=== PATIENT | male | born 1960 | race Caucasian/White ===

== ENCOUNTER 2016-10-17 09:20 | Emergency (ER) | payer OTHER ==
[~2016-10-17] VITALS: Ht 160 cm; Wt 73.0 kg
[~2016-10-17 09:20] MED LIST: DAPA10TA PO; FENO145T19 PO; FURO40TA4 PO; LANT3I SC; LOSA25TA47 PO; NITR-58 PO; NOVO3I SC; PANT40TA3 PO; SPIR100T31 PO; ZOLP10TA5 PO
[2016-10-17 09:28] VITALS: Ht 160 cm; Wt 73.0 kg
[2016-10-17] MEDS ORDERED: traMADol 50 MG TAB PO ONE (10:00)
[2016-10-17] MEDS: LIDOCAINE 1% (MPF) 5 ML VIAL ONE ×2 (10:39→11:36)
[2016-10-17 12:09] VITALS: BP 113/69; PULSE 69; RESP 19; TEMP 97.7
--- NOTE | 2016-10-17 13:43 | ERD ---
ER Documentation Chief Complaint Date/Time DATE: 10/17/16 TIME: 13:41 Chief Complaint here for paracenthesis HPI Patient is a 55-year-old male with ascites who presents with abdominal distention. He has abdominal pain and subjective fever but did not take his temperature. It started 2 days ago. Upon review of old medical records he has multiple visits to the ER with similar type complaints. I have seen him before and he appears to be at his baseline. The patient has had no treatment as of yet. ROS All systems reviewed and are negative except as per history of present illness. Medications Home Meds Active Scripts Nitrofurantoin Monohyd Macrocr* (Macrobid*) 100 Mg Capsr, 100 MG PO BID for 7 Days, CAP Prov:ALESIA CLAROS MD 10/07/16 Insulin Aspart* (Novolog Insulin Pen*) 100 Unit/Ml Soln, 10 UNIT SC WITH MEALS BEDTIME for 28 Days Prov:JERZY BENSON MD 08/27/16 Reported Medications Dapagliflozin Propanediol (Farxiga) 10 Mg Tablet, 10 MG PO DAILY, #30 TAB 08/23/16 Insulin Glargine* (Lantus*) 100 Unit/Ml Soln, 35 UNIT SC QHS, #1 VIAL 08/23/16 Losartan Potassium* (Cozaar*) 25 Mg Tablet, 25 MG PO DAILY, #30 TAB 08/23/16 Pantoprazole* (Protonix*) 40 Mg Tablet.dr, 40 MG PO DAILY, TAB 08/23/16 Furosemide* (Furosemide*) 40 Mg Tablet, 40 MG PO DAILY, TAB 08/23/16 Fenofibrate Nanocrystallized* (Fenofibrate*) 145 Mg Tablet, 145 MG PO DAILY, TAB 08/23/16 Zolpidem Tartrate* (Zolpidem Tartrate*) 10 Mg Tablet, 10 MG PO QHS Y for INSOMNIA, #30 TAB 08/23/16 Spironolactone* (Spironolactone*) 100 Mg Tablet, 100 MG PO QAM, TAB 08/23/16 Allergies Allergies: Coded Allergies: No Known Drug Allergy (Verified Allergy, Unknown, 10/17/16) PMhx/Soc History of Surgery: Yes (TONSIL SX, COLON SX) Anesthesia Reaction: No Hx Neurological Disorder: No Hx Respiratory Disorders: No Hx Cardiac Disorders: Yes (HYPOTENSION) Hx Psychiatric Problems: No Hx Miscellaneous Medical Probl: Yes (DM, LIVER FAILURE, RENAL DYSFXN.) Hx Alcohol Use: Yes (FORMER DRINKER; LAST DRINK 1 YEAR AGO) Hx Substance Use: No Hx Tobacco Use: Yes (5-6 cig/ day) Smoking Status: Current every day smoker FmHx Family History: No diabetes Physical Exam Vitals Vital Signs Date Time Temp Pulse Resp B/P Pulse Ox O2 Delivery O2 Flow Rate FiO2 10/17/16 12:09 97.7 69 19 113/69 99 Room Air 10/17/16 11:41 97.9 79 18 118/75 99 Room Air 10/17/16 09:28 98.0 106 24 91/60 99 Physical Exam Const: Mild distress Head: Atraumatic Eyes: Normal Conjunctiva ENT: Normal External Ears, Nose and Mouth. Neck: Full range of motion..~ No meningismus. Resp: Clear to auscultation bilaterally Cardio: Regular rate and rhythm, no murmurs Abd: Distended abdomen with positive fluid wave Skin: No petechiae or rashes Back: No midline or flank tenderness Ext: No cyanosis, or edema Neur: Awake and alert Psych: Normal Mood and Affect Results 24 hrs Current Medications Medications (Trade) Dose Ordered Sig/Lisa Route PRN Reason Start Time Stop Time Status Last Admin Dose Admin Tramadol HCl (Ultram) 50 mg ONCE ONCE PO 10/17/16 10:00 10/17/16 10:01 DC 10/17/16 10:05 Lidocaine (Xylocaine 1% (Mpf)) 5 ml STK-MED ONCE .ROUTE 10/17/16 10:39 10/17/16 10:40 DC Procedures/MDM Ultrasound-guided paracentesis performed by radiology. Patient is a 55-year-old male with ascites who presents for a paracentesis. He had laboratories done 6 days ago and does not require repeat. I doubt spontaneous bacterial peritonitis. He is afebrile. He was given tramadol for pain and had an ultrasound-guided paracentesis performed. He feels much better and is now smiling and happy. The patient will be discharged home and can follow-up with his primary doctor within 24-48 hours. Departure Diagnosis: Primary Impression: Ascites Ascites type: other type Qualified Code: R18.8 - Other ascites Additional Impression: Abdominal pain Abdominal location: generalized Qualified Code: R10.84 - Generalized abdominal pain Condition: Fair Patient Instructions: Ascites Additional Instructions: Call your primary care doctor TOMORROW for an appointment during the next 1-2 days.See the doctor sooner or return here if your condition worsens before your appointment time. ALESIA CLAROS MD Oct 17, 2016 13:42
--- NOTE | 2016-10-17 13:45 | RADRPT ---
PROCEDURE: Ultrasound guided paracentesis. CLINICAL INDICATION: Ascites and shortness of breath. COMPARISON: 10/11/2016. TECHNIQUE: The risks, benefits, and alternatives were explained to the patient, including but not limited to bl eeding, infection, pain, visceral or vascular damage, shock, and . The patient understood the risks and the alternatives and wished to proceed with the procedure. Informed written consent was o btained. A procedural time out was performed. The patient's name, date of , and procedure to b e performed were verified. Utilizing ultrasound guidance, optimal location for entry to the peritoneal cavity was ascertained. The overlying skin was prepped and draped in the usual sterile fashion. Approximately 10 ml of 1% Xylocaine was injected locally for pain control. Using ultrasound guidance, an 8 [place] catheter wa s introduced into the peritoneal cavity in the right lower quadrant without difficulty. FINDINGS: Initial images demonstrate ascites. Approximately 4.8 liters of serous fluid was aspirated and disc arded. The patient tolerated the procedure well without complication. IMPRESSION: 1. Successful ultrasound-guided paracentesis. RPTAT: QQ .Thierno Ventura MD, MD Date Time Electronically viewed and signed by .Thierno Ventura MD, on 10/17/2016 13:45 .R/
== END 2016-10-17 12:16 | disposition home or self-care (01) ==
LOC: E/R 09:20
DX: R18.8 Other ascites (principal); R10.84 Generalized abdominal pain; E11.9 Type 2 diabetes mellitus without complications; F17.210 Nicotine dependence, cigarettes, uncomplicated; Z79.4 Long term (current) use of insulin
CPT/HCPCS: Z7502; Z7610

== ENCOUNTER 2016-10-20 09:27 | Emergency (ER) | payer OTHER ==
[~2016-10-20] VITALS: Wt 70.4 kg
[2016-10-20] MEDS ORDERED: morphine 4 MG/ML VIAL IV STA (09:43)
[2016-10-20] MEDS ORDERED: ONDANSETRON 4 MG INJ IV STA (09:43)
[2016-10-20 10:22] LABS: BASOPHILS % 0.3 % (0.0-2.0); EOSINOPHILS # 0.3 10^3/ul (0.0-0.5); EOSINOPHILS % 3.1 % (0.0-7.0); HEMATOCRIT 37.8 % (42.0-52.0); HEMOGLOBIN 12.9 g/dl (14.0-18.0); LYMPHOCYTES # 0.6 10^3/ul (0.8-2.9); LYMPHOCYTES % 7.7 % (15.0-51.0); MEAN CORPUSCULAR VOLUME 88.2 fl (82.0-101.0); MEAN PLATELET VOLUME 9.7 fl (7.4-10.4); MONOCYTES % 12.2 % (0.0-11.0); NEUTROPHIL # 6.4 10^3/ul (1.6-7.5); NEUTROPHILS % 76.7 % (39.0-77.0); PLATELET COUNT 162 10^3/UL (140-440); RED BLOOD COUNT 4.29 10^6/ul (4.70-6.10); RED CELL DISTRIBUTION WIDTH 16.4 % (11.5-14.5); UNCORRECTED WBC 8.4 10^3/ul (4.8-10.8); WHITE BLOOD COUNT 8.4 10^3/ul (4.8-10.8)
[2016-10-20 10:24] LABS: ALBUMIN 2.8 g/dl (3.3-4.9)
[2016-10-20 10:25] LABS: CONDITION 1; LH ANALYZER COMMENTS 1; POTASSIUM 5.2 mmol/L (3.5-5.1)
[2016-10-20 10:26] LABS: INR 1.15; PROTIME 14.7 Sec (12.2-14.2); PT RATIO 1.1
[2016-10-20 10:27] LABS: ALBUMIN/GLOBULIN RATIO 0.65; BILIRUBIN,INDIRECT 0.5 mg/dl (0-1.1); BILIRUBIN,TOTAL 0.5 mg/dl (0.2-1.3); CALCIUM 8.7 mg/dl (8.4-10.2); CREATININE 0.93 mg/dl (0.61-1.24); PARTIAL THROMBOPLASTIN TIME 34.6 Sec (25.0-35.0); TOTAL PROTEIN 7.1 g/dl (6.1-8.1)
--- NOTE | 2016-10-20 11:46 | RADRPT ---
PROCEDURE: US Scrotum. CLINICAL INDICATION: Scrotal pain. TECHNIQUE: Multiple sonographic images of the scrotal region were obtained utilizing a linear arra y transducer with grayscale and color-flow and pulsed Doppler imaging. The images were reviewed on a high-resolution PACS workstation. COMPARISON: No prior studies are available for comparison. FINDINGS: The right testis measures 3.3 x 2.0 x 2.7 cm. The left testis measures 3.5 x 2.0 x 2.7 cm. There is no intratesticular mass. There is a benign right epididymal cyst measuring 0.8 cm. The right epididymis is mildly enlarged a nd hyperemic which may indicate epididymitis. The epididymi are otherwise normal. There is normal flow to both testes demonstrated with color Doppler and pulsed Doppler sonography. There is no hydrocele. There is no varicocele. The scrotal wall is unremarkable. IMPRESSION: 1. Benign right epididymal cyst measuring 0.8 cm. 2. Possible right epididymitis. 3. Otherwise normal scrotal ultrasound. RPTAT: QQ .Thierno Ventura MD, Date Time Electronically viewed and signed by .Thierno Ventura MD, on 10/20/2016 11:45 .R/
--- NOTE | 2016-10-20 12:09 | ERD ---
ER Documentation Chief Complaint Date/Time DATE: 10/20/16 TIME: 12:09 Chief Complaint TESTICULAR SWELLING X1 DAY, DENIES PAIN, HX OF LIVER CIRRHOSIS HPI 55-year-old cirrhotic male who presents with abdominal swelling and testicular and penile swelling. The patient states last paracentesis several days ago. He received paracentesis every 3 days. The patient is concerned today because he has significant swelling and edema of his scrotum and penile shaft. He denies any fevers or chills, no drainage or discharge, no focal pain. She has chronic and stable pain of his back but is unchanged. ROS All systems reviewed and are negative except as per history of present illness. Medications Home Meds Active Scripts Nitrofurantoin Monohyd Macrocr* (Macrobid*) 100 Mg Capsr, 100 MG PO BID for 7 Days, CAP Prov:ALESIA CLAROS MD 10/07/16 Insulin Aspart* (Novolog Insulin Pen*) 100 Unit/Ml Soln, 10 UNIT SC WITH MEALS BEDTIME for 28 Days Prov:JERZY BENSON MD 08/27/16 Reported Medications Dapagliflozin Propanediol (Farxiga) 10 Mg Tablet, 10 MG PO DAILY, #30 TAB 08/23/16 Insulin Glargine* (Lantus*) 100 Unit/Ml Soln, 35 UNIT SC QHS, #1 VIAL 08/23/16 Losartan Potassium* (Cozaar*) 25 Mg Tablet, 25 MG PO DAILY, #30 TAB 08/23/16 Pantoprazole* (Protonix*) 40 Mg Tablet.dr, 40 MG PO DAILY, TAB 08/23/16 Furosemide* (Furosemide*) 40 Mg Tablet, 40 MG PO DAILY, TAB 08/23/16 Fenofibrate Nanocrystallized* (Fenofibrate*) 145 Mg Tablet, 145 MG PO DAILY, TAB 08/23/16 Zolpidem Tartrate* (Zolpidem Tartrate*) 10 Mg Tablet, 10 MG PO QHS Y for INSOMNIA, #30 TAB 08/23/16 Spironolactone* (Spironolactone*) 100 Mg Tablet, 100 MG PO QAM, TAB 08/23/16 Allergies Allergies: Coded Allergies: No Known Drug Allergy (Verified Allergy, Unknown, 10/20/16) PMhx/Soc History of Surgery: Yes (TONSIL SX, COLON SX) Anesthesia Reaction: No Hx Neurological Disorder: No Hx Respiratory Disorders: No Hx Cardiac Disorders: Yes (HYPOTENSION) Hx Psychiatric Problems: No Hx Miscellaneous Medical Probl: Yes (DM, LIVER FAILURE, RENAL DYSFXN.) Hx Alcohol Use: Yes (FORMER DRINKER; LAST DRINK 1 YEAR AGO) Hx Substance Use: No Hx Tobacco Use: Yes (5-6 cig/ day) Smoking Status: Current some day smoker FmHx Family History: No diabetes Physical Exam Vitals Vital Signs Date Time Temp Pulse Resp B/P Pulse Ox O2 Delivery O2 Flow Rate FiO2 10/20/16 13:44 98 16 89/69 98 Room Air 10/20/16 10:34 100 18 90/65 99 Room Air 10/20/16 09:31 96.8 107 17 94/63 99 Physical Exam General: Well developed, well nourished, no acute distress Head: Normocephalic, atraumatic. Eyes: Pupils equally reactive, EOM intact ENT: Moist mucous membranes Neck: Supple, no lymphadenopathy Respiratory: Lungs clear bilaterally, no distress Cardiovascular: RRR, no murmurs, rubs, or gallops Abdominal: Soft, protuberant abdomen with fluid wave : Edema of the penile shaft and scrotum, no focal tenderness difficult to palpate the testicles, no drainage or discharge, no evidence of phimosis or paraphimosis MSK: No edema, no unilateral swelling, 5/5 strength Neurologic: Alert and oriented, moving all extremities, normal speech, no focal weakness, no cerebellar signs Skin: No rash Psych: Normal mood Result Diagram: 10/20/16 1000 10/20/16 1000 Results 24 hrs Laboratory Tests Test 10/20/16 10:00 Activated Partial Thromboplast Time 34.6Sec Alanine Aminotransferase (ALT/SGPT) 43IU/L Albumin 2.8g/dl Albumin/Globulin Ratio 0.65 Alkaline Phosphatase 191IU/L Anion Gap 15 Aspartate Amino Transf (AST/SGOT) 53IU/L Basophils # 0.010^3/ul Basophils % 0.3% Blood Morphology Comment Blood Urea Nitrogen 16mg/dl Calcium Level 8.7mg/dl Carbon Dioxide Level 21mmol/L Chloride Level 97mmol/L Creatinine 0.93mg/dl Direct Bilirubin 0.00mg/dl Eosinophils # 0.310^3/ul Eosinophils % 3.1% Globulin 4.30g/dl Glucose Level 305mg/dl Hematocrit 37.8% Hemoglobin 12.9g/dl INR International Normalized Ratio 1.15 Indirect Bilirubin 0.5mg/dl Lipase 156U/L Lymphocytes # 0.610^3/ul Lymphocytes % 7.7% Mean Corpuscular Hemoglobin 30.0pg Mean Corpuscular Hemoglobin Concent 34.0g/dl Mean Corpuscular Volume 88.2fl Mean Platelet Volume 9.7fl Monocytes # 1.010^3/ul Monocytes % 12.2% Neutrophils # 6.410^3/ul Neutrophils % 76.7% Nucleated Red Blood Cells # 0.010^3/ul Nucleated Red Blood Cells % 0.0/100WBC Platelet Count 39435^3/UL Potassium Level 5.2mmol/L Prothrombin Time 14.7Sec Prothrombin Time Ratio 1.1 Red Blood Count 4.2910^6/ul Red Cell Distribution Width 16.4% Sodium Level 128mmol/L Total Bilirubin 0.5mg/dl Total Protein 7.1g/dl White Blood Count 8.410^3/ul Current Medications Medications (Trade) Dose Ordered Sig/Lisa Route PRN Reason Start Time Stop Time Status Last Admin Dose Admin Morphine Sulfate (morphine) 4 mg ONCE STAT IV 10/20/16 09:43 10/20/16 09:44 DC 10/20/16 10:00 Ondansetron HCl (Zofran Inj) 4 mg ONCE STAT IV 10/20/16 09:43 10/20/16 09:44 DC 10/20/16 09:59 Lidocaine (Xylocaine 1% (Mpf)) 5 ml STK-MED ONCE .ROUTE 10/20/16 13:08 10/20/16 13:09 DC Procedures/MDM EKG, MONITORS, & DIAGNOSTIC IMAGING: Large volume therapeutic paracentesis performed by interventional radiology. Ultrasound scrotum: IMPRESSION: 1. Benign right epididymal cyst measuring 0.8 cm. 2. Possible right epididymitis. 3. Otherwise normal scrotal ultrasound. RPTAT: QQ LAB INTERPRETATION: No significant coagulopathy noted. MEDICAL DECISION MAKING: The patient presents with abdominal ascites likely secondary to cirrhosis. Patient does not exhibit any signs or symptoms concerning for complications of cirrhosis such as GI bleed, hepatic encephalopathy or spontaneous bacterial peritonitis. There is no indication currently for diagnostic paracentesis. The patient will benefit from large volume therapeutic paracentesis by interventional radiology. If the patient remains stable without evidence of hemodynamic compromise secondary to fluid shifts the patient can be safely discharged home with close primary care and hepatology follow-up. ER COURSE: The patient had successful large volume therapeutic paracentesis. The patient remained hemodynamically stable and otherwise well-appearing. The patient is safe for discharge home. The patient's scrotal exam is very consistent with likely dependent edema and anasarca secondary to cirrhosis. The patient has no evidence of phimosis paraphimosis, testicular torsion or cellulitis. The patient has no fever and a normal white count. This is not consistent with necrotizing process. Symptoms likely to improve with large volume paracentesis and fluid management. Primary care referral recommended. I kept the patient and/or family informed of laboratory and diagnostic imaging results throughout the emergency room course. DISPOSITION PLAN: We discussed follow up with the patient's primary care doctor within 24 to 48 hours as needed. We also discussed return to the emergency room for worsening symptoms or worsening condition. Discharge Medications: None Departure Diagnosis: Primary Impression: Ascites Ascites type: due to alcoholic cirrhosis Qualified Code: K70.31 - Ascites due to alcoholic cirrhosis Condition: Stable CLINTON TAMAYO MD Oct 20, 2016 12:09
[2016-10-20] MEDS ORDERED: LIDOCAINE 1% (MPF) 5 ML VIAL ONE (13:08)
[2016-10-20 13:44] VITALS: BP 89/69; PULSE 98; RESP 16
--- NOTE | 2016-10-20 14:35 | RADRPT ---
PROCEDURE: Ultrasound guided paracentesis CLINICAL INDICATION: Ascites TECHNIQUE: The risks benefits and alternatives of the procedure were explained to the patient. In formed written consent was obtained. A time out was performed. The patient understood the risks be nefits and alternatives and wished to proceed with the procedure. The overlying skin of the right l ower quadrant of the abdomen was prepped and draped in the usual sterile fashion. Approximately 10 c c of Xylocaine was injected locally for pain control. Utilizing ultrasound guidance, a skinny 5-[facility] catheter was placed into the peritoneal cavity without difficulty. The patient tolerated the procedure well without complication. Approximately 5300 cc of thin alexa fluid was obtained. T he fluid was not sent to the lab for further analysis. COMPARISON: 10/17/2016 FINDINGS: Initial ultrasound demonstrated a large amount of simple appearing ascites. Successful ultrasound-g uided paracentesis with a total of 5300 cc of thin yellow fluid aspirated. IMPRESSION: Successful ultrasound-guided paracentesis. RPTAT: QQ .Kam Harris MD, MD Date Time Electronically viewed and signed by .Kam Harris MD, on 10/20/2016 14:35 .A/
== END 2016-10-20 14:57 | disposition home or self-care (01) ==
LOC: E/R 09:27
DX: K70.31 Alcoholic cirrhosis of liver with ascites (principal); E11.9 Type 2 diabetes mellitus without complications; F17.210 Nicotine dependence, cigarettes, uncomplicated; Z79.4 Long term (current) use of insulin
CPT/HCPCS: 76870; 80053; 83690; 85025; 85610; 85730; J2270; J2405; Z7610; 36415; 96374; 96375

== ENCOUNTER 2016-10-23 10:16 | Emergency (ER) | payer OTHER ==
[~2016-10-23] VITALS: Ht 175.3 cm; Wt 74.0 kg
[2016-10-23 10:27] VITALS: Ht 175.3 cm; Wt 74.0 kg
[2016-10-23] MEDS ORDERED: LIDOCAINE 1% (MPF) 5 ML VIAL ONE (12:34)
[2016-10-23 13:03] VITALS: BP 100/63; PULSE 91; RESP 18; TEMP 98.1
--- NOTE | 2016-10-23 13:39 | RADRPT ---
PROCEDURE: Ultrasound guided paracentesis. CLINICAL INDICATION: Ascites and shortness of breath. COMPARISON: 10/20/2016. TECHNIQUE: The risks, benefits, and alternatives were explained to the patient, including but not limited to bl eeding, infection, pain, visceral or vascular damage, shock, and . The patient understood the risks and the alternatives and wished to proceed with the procedure. Informed written consent was o btained. A procedural time out was performed. The patient's name, date of , and procedure to b e performed were verified. Utilizing ultrasound guidance, optimal location for entry to the peritoneal cavity was ascertained. The overlying skin was prepped and draped in the usual sterile fashion. Approximately 10 ml of 1% Xylocaine was injected locally for pain control. Using ultrasound guidance, an 8 [place] catheter wa s introduced into the peritoneal cavity in the right lower quadrant without difficulty. FINDINGS: Initial images demonstrate ascites. Approximately 7.0 liters of serous fluid was aspirated and disc arded. The patient tolerated the procedure well without complication. IMPRESSION: 1. Successful ultrasound-guided paracentesis. RPTAT: QQ .Thierno Ventura MD, MD Date Time Electronically viewed and signed by .Thierno Ventura MD, on 10/23/2016 13:38 .R/
--- NOTE | 2016-10-23 13:40 | ERD ---
ER Documentation Chief Complaint Date/Time DATE: 10/23/16 TIME: 13:39 Chief Complaint BIB FAMILY FOR ABD PAIN NEEDS PARACENTESIS HPI Patient is a 55-year-old male with cirrhosis and ascites who presents with abdominal distention. He had a paracentesis done 3 days ago on October 20 and does have multiple visits to the ER for paracentesis. He usually gets multiple paracentesis about every 3 days. He has abdominal pain and shortness of breath. He denies fever at this time. He has abdominal pain and shortness of breath which is his usual presentation. ROS All systems reviewed and are negative except as per history of present illness. Medications Home Meds Active Scripts Nitrofurantoin Monohyd Macrocr* (Macrobid*) 100 Mg Capsr, 100 MG PO BID for 7 Days, CAP Prov:ALESIA CLAROS MD 10/07/16 Insulin Aspart* (Novolog Insulin Pen*) 100 Unit/Ml Soln, 10 UNIT SC WITH MEALS BEDTIME for 28 Days Prov:JERZY BENSON MD 08/27/16 Reported Medications Dapagliflozin Propanediol (Farxiga) 10 Mg Tablet, 10 MG PO DAILY, #30 TAB 08/23/16 Insulin Glargine* (Lantus*) 100 Unit/Ml Soln, 35 UNIT SC QHS, #1 VIAL 08/23/16 Losartan Potassium* (Cozaar*) 25 Mg Tablet, 25 MG PO DAILY, #30 TAB 08/23/16 Pantoprazole* (Protonix*) 40 Mg Tablet.dr, 40 MG PO DAILY, TAB 08/23/16 Furosemide* (Furosemide*) 40 Mg Tablet, 40 MG PO DAILY, TAB 08/23/16 Fenofibrate Nanocrystallized* (Fenofibrate*) 145 Mg Tablet, 145 MG PO DAILY, TAB 08/23/16 Zolpidem Tartrate* (Zolpidem Tartrate*) 10 Mg Tablet, 10 MG PO QHS Y for INSOMNIA, #30 TAB 08/23/16 Spironolactone* (Spironolactone*) 100 Mg Tablet, 100 MG PO QAM, TAB 08/23/16 Allergies Allergies: Coded Allergies: No Known Drug Allergy (Verified Allergy, Unknown, 10/20/16) PMhx/Soc History of Surgery: Yes (TONSIL SX, COLON SX) Anesthesia Reaction: No Hx Neurological Disorder: No Hx Respiratory Disorders: No Hx Cardiac Disorders: Yes (HYPOTENSION) Hx Psychiatric Problems: No Hx Miscellaneous Medical Probl: Yes (DM, LIVER FAILURE, RENAL DYSFXN.) Hx Alcohol Use: Yes (FORMER DRINKER; LAST DRINK 1 YEAR AGO) Hx Substance Use: No Hx Tobacco Use: Yes (5-6 cig/ day) Smoking Status: Current every day smoker FmHx Family History: No diabetes Physical Exam Vitals Vital Signs Date Time Temp Pulse Resp B/P Pulse Ox O2 Delivery O2 Flow Rate FiO2 10/23/16 13:03 98.1 91 18 100/63 10/23/16 10:27 98.3 100 20 91/52 99 Physical Exam Const: No acute distress Head: Atraumatic Eyes: Normal Conjunctiva ENT: Normal External Ears, Nose and Mouth. Neck: Full range of motion..~ No meningismus. Resp: Clear to auscultation bilaterally Cardio: Regular rate and rhythm, no murmurs Abd: Abdominal distention with positive fluid wave Skin: No petechiae or rashes Back: No midline or flank tenderness Ext: No cyanosis, or edema Neur: Awake and alert Psych: Normal Mood and Affect Results 24 hrs Current Medications Medications (Trade) Dose Ordered Sig/Lisa Route PRN Reason Start Time Stop Time Status Last Admin Dose Admin Lidocaine (Xylocaine 1% (Mpf)) 5 ml STK-MED ONCE .ROUTE 10/23/16 12:34 10/23/16 12:35 DC Procedures/MDM Ultrasound-guided paracentesis performed by radiology. Patient is a 55-year-old male who presents with abdominal distention. He has required paracentesis frequently in the past. He had laboratory studies done 3 days ago which were basically normal and his coagulation studies were normal. The patient will be discharged now that his paracentesis is performed. I doubt spontaneous bacterial peritonitis. The patient can return for any worsening symptoms. He is planning to have a drain placed to avoid this in the future. He tells me that this is supposed to be done within 1 month. Departure Diagnosis: Primary Impression: Ascites Ascites type: other type Qualified Code: R18.8 - Other ascites Additional Impression: Abdominal pain Abdominal location: generalized Qualified Code: R10.84 - Generalized abdominal pain Condition: Fair Patient Instructions: Ascites Additional Instructions: Call your primary care doctor TOMORROW for an appointment during the next 1-2 days.See the doctor sooner or return here if your condition worsens before your appointment time. ALESIA CLAROS MD Oct 23, 2016 13:40
== END 2016-10-23 13:04 | disposition home or self-care (01) ==
LOC: E/R 10:16
DX: R18.8 Other ascites (principal); R10.84 Generalized abdominal pain; E11.9 Type 2 diabetes mellitus without complications; F17.210 Nicotine dependence, cigarettes, uncomplicated; Z79.4 Long term (current) use of insulin
CPT/HCPCS: Z7502; Z7610

== ENCOUNTER 2016-10-27 09:43 | Emergency (ER) | payer OTHER ==
[~2016-10-27] VITALS: Wt 77.3 kg
[2016-10-27 11:02] LABS: BASOPHILS % 0.2 % (0.0-2.0); EOSINOPHILS # 0.2 10^3/ul (0.0-0.5); EOSINOPHILS % 2.7 % (0.0-7.0); HEMATOCRIT 37.5 % (42.0-52.0); HEMOGLOBIN 12.6 g/dl (14.0-18.0); LYMPHOCYTES # 0.6 10^3/ul (0.8-2.9); LYMPHOCYTES % 9.5 % (15.0-51.0); MEAN CORPUSCULAR HEMOGLOBIN 30.1 pg (29.0-33.0); MEAN CORPUSCULAR HGB CONC 33.7 g/dl (32.0-37.0); MEAN CORPUSCULAR VOLUME 89.4 fl (82.0-101.0); MEAN PLATELET VOLUME 9.6 fl (7.4-10.4); MONOCYTES % 14.2 % (0.0-11.0); NEUTROPHILS % 73.4 % (39.0-77.0); PLATELET COUNT 147 10^3/UL (140-440); RED BLOOD COUNT 4.19 10^6/ul (4.70-6.10); UNCORRECTED WBC 6.8 10^3/ul (4.8-10.8); WHITE BLOOD COUNT 6.8 10^3/ul (4.8-10.8)
[2016-10-27 11:06] LABS: CONDITION 1; LH ANALYZER COMMENTS 1
[2016-10-27 12:34] LABS: ALBUMIN 2.7 g/dl (3.3-4.9)
[2016-10-27 12:35] LABS: POTASSIUM 5.2 mmol/L (3.5-5.1)
[2016-10-27 12:37] LABS: ALBUMIN/GLOBULIN RATIO 0.61; BILIRUBIN,INDIRECT 0.4 mg/dl (0-1.1); BILIRUBIN,TOTAL 0.4 mg/dl (0.2-1.3); CREATININE 0.71 mg/dl (0.61-1.24); TOTAL PROTEIN 7.1 g/dl (6.1-8.1)
[2016-10-27 12:38] LABS: CALCIUM 8.7 mg/dl (8.4-10.2)
[2016-10-27] MEDS ORDERED: HYDROCODONE/APAP (5/325) TAB PO ONE (13:00)
[2016-10-27 14:11] LABS: INR 1.1; PARTIAL THROMBOPLASTIN TIME 34.1 Sec (25.0-35.0); PROTIME 14.2 Sec (12.2-14.2); PT RATIO 1.1
[2016-10-27] MEDS ORDERED: LIDOCAINE 1% (MPF) 5 ML VIAL ONE (15:28)
--- NOTE | 2016-10-27 15:35 | RADRPT ---
PROCEDURE: Ultrasound guided paracentesis. CLINICAL INDICATION: Ascites and shortness of breath. COMPARISON: 10/23/2016. TECHNIQUE: The risks, benefits, and alternatives were explained to the patient, including but not limited to bl eeding, infection, pain, visceral or vascular damage, shock, and . The patient understood the risks and the alternatives and wished to proceed with the procedure. Informed written consent was o btained. A procedural time out was performed. The patient's name, date of , and procedure to b e performed were verified. Utilizing ultrasound guidance, optimal location for entry to the peritoneal cavity was ascertained. The overlying skin was prepped and draped in the usual sterile fashion. Approximately 10 ml of 1% Xylocaine was injected locally for pain control. Using ultrasound guidance, an 8 Romanian catheter wa s introduced into the peritoneal cavity in the right lower quadrant without difficulty. FINDINGS: Initial images demonstrate ascites. Approximately 7.2 liters of serous fluid was aspirated and disc arded. The patient tolerated the procedure well without complication. IMPRESSION: 1. Successful ultrasound-guided paracentesis. RPTAT: QQ .Thierno Ventura MD, MD Date Time Electronically viewed and signed by .Thierno Ventura MD, on 10/27/2016 15:35 .R/
[2016-10-27] MEDS ORDERED: SODI15OR8 PO (15:53)
[2016-10-27] MEDS ORDERED: FURO40TA4 PO (15:53)
[2016-10-27 16:00] VITALS: BP 87/68; PULSE 97; RESP 20; TEMP 97.1
--- NOTE | 2016-10-27 16:01 | ERD ---
ER Documentation Chief Complaint Date/Time DATE: 10/27/16 TIME: 15:55 Chief Complaint ASCITIS HPI 55-year-old male presents emergency room for increasing abdominal distention. His pain is generalized in the abdomen is described as a stretching pain. Nothing makes it better or worse but it hasn't given it over the last few days. He has chronic liver failure and gets frequent paracenteses at this hospital. He denies any fever or chills and states that he feels well except for the abdominal distention. Spoke with him at length about his primary care doctor the need for a gastroenterology follow-up. He states that his has a machine specialist but no specialist for his liver for his abdomen. His doctor tells him to just come the emergency room every time he is a paracentesis. He denies any weakness lightheadedness, nausea and vomiting. Having normal bowel movements. ROS All systems reviewed and are negative except as per history of present illness. Medications Home Meds Active Scripts Furosemide* (Furosemide*) 40 Mg Tablet, 40 MG PO DAILY, #1 TAB Prov:GALINDO BAILEY DO 10/27/16 Sodium Polystyrene Sulfonate* (Kayexalate*) 15 Gm/60 Ml Susp, 30 GM PO DAILY for 3 Days, ML Prov:GALINDO BAILEY DO 10/27/16 Nitrofurantoin Monohyd Macrocr* (Macrobid*) 100 Mg Capsr, 100 MG PO BID for 7 Days, CAP Prov:ALESIA CLAROS MD 10/07/16 Insulin Aspart* (Novolog Insulin Pen*) 100 Unit/Ml Soln, 10 UNIT SC WITH MEALS BEDTIME for 28 Days Prov:JERZY BENSON MD 08/27/16 Reported Medications Dapagliflozin Propanediol (Farxiga) 10 Mg Tablet, 10 MG PO DAILY, #30 TAB 08/23/16 Insulin Glargine* (Lantus*) 100 Unit/Ml Soln, 35 UNIT SC QHS, #1 VIAL 08/23/16 Losartan Potassium* (Cozaar*) 25 Mg Tablet, 25 MG PO DAILY, #30 TAB 08/23/16 Pantoprazole* (Protonix*) 40 Mg Tablet.dr, 40 MG PO DAILY, TAB 08/23/16 Furosemide* (Furosemide*) 40 Mg Tablet, 40 MG PO DAILY, TAB 08/23/16 Fenofibrate Nanocrystallized* (Fenofibrate*) 145 Mg Tablet, 145 MG PO DAILY, TAB 08/23/16 Zolpidem Tartrate* (Zolpidem Tartrate*) 10 Mg Tablet, 10 MG PO QHS Y for INSOMNIA, #30 TAB 08/23/16 Spironolactone* (Spironolactone*) 100 Mg Tablet, 100 MG PO QAM, TAB 08/23/16 Allergies Allergies: Coded Allergies: No Known Drug Allergy (Verified Allergy, Unknown, 10/20/16) PMhx/Soc History of Surgery: Yes (TONSIL SX, COLON SX) Anesthesia Reaction: No Hx Neurological Disorder: No Hx Respiratory Disorders: No Hx Cardiac Disorders: Yes (HYPOTENSION) Hx Psychiatric Problems: No Hx Miscellaneous Medical Probl: Yes (DM, LIVER FAILURE, RENAL DYSFXN.) Hx Alcohol Use: Yes (FORMER DRINKER: NO DRINK IN OVER A YEAR) Hx Substance Use: No Hx Tobacco Use: Yes (3 CIGS/DAY) Smoking Status: Current every day smoker Physical Exam Vitals Vital Signs Date Time Temp Pulse Resp B/P Pulse Ox O2 Delivery O2 Flow Rate FiO2 10/27/16 10:05 97.0 90 20 93/72 99 Physical Exam Const: [] No distress, sitting on edge of bed comfortably Head: Atraumatic Eyes: Normal Conjunctiva ENT: Normal External Ears, Nose and Mouth. Neck: Full range of motion..~ No meningismus. Resp: Clear to auscultation bilaterally Cardio: Regular rate and rhythm, no murmurs Abd: Soft, non tender, moderate firm abdominal distention that is dull to percussion,. Normal bowel sounds Skin: No petechiae or rashes Back: No midline or flank tenderness Ext: No cyanosis, or edema Neur: Awake and alert and oriented 3, no focal deficits Psych: Normal Mood and Affect Result Diagram: 10/27/16 1050 10/27/16 1050 Results 24 hrs Laboratory Tests Test 10/27/16 10:50 10/27/16 13:45 Alanine Aminotransferase (ALT/SGPT) 55IU/L Albumin 2.7g/dl Albumin/Globulin Ratio 0.61 Alkaline Phosphatase 215IU/L Anion Gap 16 Aspartate Amino Transf (AST/SGOT) 75IU/L Basophils # 0.010^3/ul Basophils % 0.2% Blood Morphology Comment Blood Urea Nitrogen 19mg/dl Calcium Level 8.7mg/dl Carbon Dioxide Level 20mmol/L Chloride Level 98mmol/L Creatinine 0.71mg/dl Direct Bilirubin 0.00mg/dl Eosinophils # 0.210^3/ul Eosinophils % 2.7% Globulin 4.40g/dl Glucose Level 222mg/dl Hematocrit 37.5% Hemoglobin 12.6g/dl Indirect Bilirubin 0.4mg/dl Lipase 162U/L Lymphocytes # 0.610^3/ul Lymphocytes % 9.5% Mean Corpuscular Hemoglobin 30.1pg Mean Corpuscular Hemoglobin Concent 33.7g/dl Mean Corpuscular Volume 89.4fl Mean Platelet Volume 9.6fl Monocytes # 1.010^3/ul Monocytes % 14.2% Neutrophils # 5.010^3/ul Neutrophils % 73.4% Nucleated Red Blood Cells # 0.010^3/ul Nucleated Red Blood Cells % 0.0/100WBC Platelet Count 85744^3/UL Potassium Level 5.2mmol/L Red Blood Count 4.1910^6/ul Red Cell Distribution Width 17.0% Sodium Level 129mmol/L Total Bilirubin 0.4mg/dl Total Protein 7.1g/dl White Blood Count 6.810^3/ul Activated Partial Thromboplast Time 34.1Sec INR International Normalized Ratio 1.10 Prothrombin Time 14.2Sec Prothrombin Time Ratio 1.1 Current Medications Medications (Trade) Dose Ordered Sig/Lisa Route PRN Reason Start Time Stop Time Status Last Admin Dose Admin Acetaminophen/ Hydrocodone Bitart ([place] (5/325)) 1 tab ONCE ONCE PO 10/27/16 13:00 10/27/16 13:01 DC Lidocaine (Xylocaine 1% (Mpf)) 5 ml STK-MED ONCE .ROUTE 10/27/16 15:28 10/27/16 15:29 DC Procedures/MDM Accumulation of ascites and liver cirrhosis patient. Mild hyperkalemia. Mild diabetic hyperglycemia. Patient's blood pressure to systolic in the 90s 200s in the ER is consistent with his prior visits. He has no lightheadedness or dizziness. I doubt spontaneous bacterial peritonitis is patient has no signs of infection whatsoever in his pain was completely relieved after paracentesis. The obtain an ultrasound-guided paracentesis from radiology and states that hE is no symptoms currently. He does commonly get hyperkalemia and has a chronic hyponatremia. I'm going to discharge him with a tablet of Lasix as well as 3 days of 30 mg Kayexalate lowers potassium. Also instructing him to see his doctor tomorrow or the next day and have left verbal instructions as well as written instructions for his primary care doctor that he needs to set his patient up with a manager asset management for regular paracenteses as an outpatient and better management of his cirrhosis. Departure Diagnosis: Primary Impression: Cirrhosis Additional Impressions: Ascites Hyperkalemia Condition: Stable Patient Instructions: Hyperkalemia, Ascites Additional Instructions: YOUR PRIMARY CARE DOCTOR NEEDS TO GET YOU AN APPOINTMENT FOR A CARDROOM SUPERVISOR TO OBTAIN REGULAR PARACENTESIS. Call your primary care doctor TOMORROW for an appointment during the next 1-2 days.See the doctor sooner or return here if your condition worsens before your appointment time. GALINDO BAILEY DO Oct 27, 2016 16:01
== END 2016-10-27 16:00 | disposition home or self-care (01) ==
LOC: E/R 09:43
DX: K74.60 Unspecified cirrhosis of liver (principal); R18.8 Other ascites; E87.5 Hyperkalemia; F17.210 Nicotine dependence, cigarettes, uncomplicated; E11.9 Type 2 diabetes mellitus without complications; Z79.4 Long term (current) use of insulin; Z79.84 Long term (current) use of oral hypoglycemic drugs
CPT/HCPCS: 80053; 83690; 85025; 85610; 85730; Z7502; Z7610

== ENCOUNTER 2016-10-31 08:27 | Emergency (ER) | payer OTHER ==
[~2016-10-31] VITALS: Wt 77.0 kg
[~2016-10-31 08:27] MED LIST changes: +SODI15OR8 PO
[2016-10-31] MEDS ORDERED: morphine 2 MG INJ IV ONE (11:00)
[2016-10-31 11:39] LABS: BASOPHILS % 0.4 % (0.0-2.0); EOSINOPHILS # 0.2 10^3/ul (0.0-0.5); EOSINOPHILS % 3.3 % (0.0-7.0); HEMATOCRIT 34.7 % (42.0-52.0); HEMOGLOBIN 11.7 g/dl (14.0-18.0); LYMPHOCYTES # 0.7 10^3/ul (0.8-2.9); LYMPHOCYTES % 10.6 % (15.0-51.0); MEAN CORPUSCULAR HEMOGLOBIN 29.9 pg (29.0-33.0); MEAN CORPUSCULAR HGB CONC 33.8 g/dl (32.0-37.0); MEAN CORPUSCULAR VOLUME 88.6 fl (82.0-101.0); MONOCYTE # 0.8 10^3/ul (0.3-0.9); MONOCYTES % 12.7 % (0.0-11.0); NEUTROPHIL # 4.6 10^3/ul (1.6-7.5); PLATELET COUNT 133 10^3/UL (140-440); RED BLOOD COUNT 3.92 10^6/ul (4.70-6.10); RED CELL DISTRIBUTION WIDTH 16.5 % (11.5-14.5); UNCORRECTED WBC 6.3 10^3/ul (4.8-10.8); WHITE BLOOD COUNT 6.3 10^3/ul (4.8-10.8)
[2016-10-31 11:41] LABS: ALBUMIN 2.6 g/dl (3.3-4.9)
[2016-10-31 11:42] LABS: POTASSIUM 3.9 mmol/L (3.5-5.1)
[2016-10-31 11:43] LABS: INR 1.18; PARTIAL THROMBOPLASTIN TIME 34.4 Sec (25.0-35.0); PROTIME 15.1 Sec (12.2-14.2); PT RATIO 1.2
[2016-10-31 11:44] LABS: BILIRUBIN,INDIRECT 0.3 mg/dl (0-1.1); BILIRUBIN,TOTAL 0.3 mg/dl (0.2-1.3); CREATININE 0.65 mg/dl (0.61-1.24)
[2016-10-31 11:45] LABS: ALBUMIN/GLOBULIN RATIO 0.63; CALCIUM 8.5 mg/dl (8.4-10.2); TOTAL PROTEIN 6.7 g/dl (6.1-8.1)
[2016-10-31 11:46] LABS: CONDITION 1; LH ANALYZER COMMENTS 1
[2016-10-31] MEDS ORDERED: LIDOCAINE 1% (MPF) 5 ML VIAL ONE (13:07)
--- NOTE | 2016-10-31 13:12 | RADRPT ---
PROCEDURE: Ultrasound guided paracentesis. CLINICAL INDICATION: Ascites and shortness of breath. COMPARISON: 10/27/2016. TECHNIQUE: The risks, benefits, and alternatives were explained to the patient, including but not limited to bl eeding, infection, pain, visceral or vascular damage, shock, and . The patient understood the risks and the alternatives and wished to proceed with the procedure. Informed written consent was o btained. A procedural time out was performed. The patient's name, date of , and procedure to b e performed were verified. Utilizing ultrasound guidance, optimal location for entry to the peritoneal cavity was ascertained. The overlying skin was prepped and draped in the usual sterile fashion. Approximately 10 ml of 1% Xylocaine was injected locally for pain control. Using ultrasound guidance, an 8 [place] catheter wa s introduced into the peritoneal cavity in the right lower quadrant without difficulty. FINDINGS: Initial images demonstrate ascites. Approximately 9.6 liters of serous fluid was aspirated and sent for laboratory analysis.. The patient tolerated the procedure well without complication. IMPRESSION: 1. Successful ultrasound-guided paracentesis. RPTAT: QQ .Thierno Ventura MD, Date Time Electronically viewed and signed by .Thierno Ventura MD, MD on 10/31/2016 13:12 .R/
[2016-10-31 13:35] LABS: FLUID APPEARANCE SLIGHTLY HAZY; FLUID RBC EST 1+; FLUID TYPE ASCITES; FLUID WBC'S 105 /cmm
[2016-10-31 14:01] LABS: FLUID BASOPHIL 0 %; FLUID EOSINOPHIL 0 %; FLUID LYMPHOCYTES 50 %; FLUID MONOCYTES 40 %; FLUID NEUTROPHILS 10 %
--- NOTE | 2016-10-31 14:56 | ERD ---
ER Documentation Chief Complaint Date/Time DATE: 10/31/16 TIME: 14:50 Chief Complaint ap with abd distention needs paracenthesis. HPI This 55-year-old male presents with increasing abdominal pain secondary to abdominal ascites. He's had no fever, chills, diarrhea, nausea or vomiting. Is a known cirrhotic patient receives frequent paracenteses here. Was on his [place] his last visit and said that in his best interest he needed to establish himself contact center analyst. Said the known at told him that yet he did so in this interval. Second she sent in by his specialist for a paracentesis to get basic studies for analysis. He has an appointment at [facility] on Friday for possible TIPS procedure. His abdominal pain is described as a stretching abdominal pain that is gotten worse over the last 2 days. ROS All systems reviewed and are negative except as per history of present illness. Medications Home Meds Active Scripts Furosemide* (Furosemide*) 40 Mg Tablet, 40 MG PO DAILY, #1 TAB Prov:GALINDO BAILEY DO 10/27/16 Sodium Polystyrene Sulfonate* (Kayexalate*) 15 Gm/60 Ml Susp, 30 GM PO DAILY for 3 Days, ML Prov:GALINDO BAILEY DO 10/27/16 Nitrofurantoin Monohyd Macrocr* (Macrobid*) 100 Mg Capsr, 100 MG PO BID for 7 Days, CAP Prov:ALESIA CLAROS MD 10/07/16 Insulin Aspart* (Novolog Insulin Pen*) 100 Unit/Ml Soln, 10 UNIT SC WITH MEALS BEDTIME for 28 Days Prov:JERZY BENSON MD 08/27/16 Reported Medications Dapagliflozin Propanediol (Farxiga) 10 Mg Tablet, 10 MG PO DAILY, #30 TAB 08/23/16 Insulin Glargine* (Lantus*) 100 Unit/Ml Soln, 35 UNIT SC QHS, #1 VIAL 08/23/16 Losartan Potassium* (Cozaar*) 25 Mg Tablet, 25 MG PO DAILY, #30 TAB 08/23/16 Pantoprazole* (Protonix*) 40 Mg Tablet.dr, 40 MG PO DAILY, TAB 08/23/16 Furosemide* (Furosemide*) 40 Mg Tablet, 40 MG PO DAILY, TAB 08/23/16 Fenofibrate Nanocrystallized* (Fenofibrate*) 145 Mg Tablet, 145 MG PO DAILY, TAB 08/23/16 Zolpidem Tartrate* (Zolpidem Tartrate*) 10 Mg Tablet, 10 MG PO QHS Y for INSOMNIA, #30 TAB 08/23/16 Spironolactone* (Spironolactone*) 100 Mg Tablet, 100 MG PO QAM, TAB 08/23/16 Allergies Allergies: Coded Allergies: No Known Drug Allergy (Verified Allergy, Unknown, 10/20/16) PMhx/Soc History of Surgery: Yes (TONSIL SX, COLON SX) Anesthesia Reaction: No Hx Neurological Disorder: No Hx Respiratory Disorders: No Hx Cardiac Disorders: Yes (HYPOTENSION) Hx Psychiatric Problems: No Hx Miscellaneous Medical Probl: Yes (DM, LIVER FAILURE, RENAL DYSFXN.) Hx Alcohol Use: Yes (FORMER DRINKER: NO DRINK IN OVER A YEAR) Hx Substance Use: No Hx Tobacco Use: Yes (3 CIGS/DAY) Smoking Status: Current every day smoker Physical Exam Vitals Vital Signs Date Time Temp Pulse Resp B/P Pulse Ox O2 Delivery O2 Flow Rate FiO2 10/31/16 11:20 98.1 100 20 100/70 100 Room Air 10/31/16 08:34 97.2 107 20 98/59 98 Physical Exam Const: [] No acute distress Head: Atraumatic Eyes: Normal Conjunctiva ENT: Normal External Ears, Nose and Mouth. Neck: Full range of motion..~ No meningismus. Resp: Clear to auscultation bilaterally Cardio: Regular rate and rhythm, no murmurs Abd: Soft, no specific tenderness,, moderately distended and firm,. Normal bowel sounds Skin: No petechiae or rashes Back: No midline or flank tenderness Ext: No cyanosis, or edema Neur: Awake and alert and oriented 3, no focal deficits Psych: Normal Mood and Affect Result Diagram: 10/31/16 1110 10/31/16 1110 Results 24 hrs Laboratory Tests Test 10/31/16 11:10 10/31/16 12:27 Activated Partial Thromboplast Time 34.4Sec Alanine Aminotransferase (ALT/SGPT) 60IU/L Albumin 2.6g/dl Albumin/Globulin Ratio 0.63 Alkaline Phosphatase 218IU/L Amylase Level 44U/L Anion Gap 13 Aspartate Amino Transf (AST/SGOT) 66IU/L Basophils # 0.010^3/ul Basophils % 0.4% Blood Morphology Comment Blood Urea Nitrogen 18mg/dl Calcium Level 8.5mg/dl Carbon Dioxide Level 22mmol/L Chloride Level 98mmol/L Creatinine 0.65mg/dl Direct Bilirubin 0.00mg/dl Eosinophils # 0.210^3/ul Eosinophils % 3.3% Globulin 4.10g/dl Glucose Level 232mg/dl Hematocrit 34.7% Hemoglobin 11.7g/dl INR International Normalized Ratio 1.18 Indirect Bilirubin 0.3mg/dl Lymphocytes # 0.710^3/ul Lymphocytes % 10.6% Mean Corpuscular Hemoglobin 29.9pg Mean Corpuscular Hemoglobin Concent 33.8g/dl Mean Corpuscular Volume 88.6fl Mean Platelet Volume 10.0fl Monocytes # 0.810^3/ul Monocytes % 12.7% Neutrophils # 4.610^3/ul Neutrophils % 73.0% Nucleated Red Blood Cells # 0.010^3/ul Nucleated Red Blood Cells % 0.0/100WBC Platelet Count 76910^3/UL Potassium Level 3.9mmol/L Prothrombin Time 15.1Sec Prothrombin Time Ratio 1.2 Red Blood Count 3.9210^6/ul Red Cell Distribution Width 16.5% Sodium Level 129mmol/L Total Bilirubin 0.3mg/dl Total Protein 6.7g/dl White Blood Count 6.310^3/ul Body Fluid Appearance SLIGHTLY HAZY Body Fluid Basophils % 0% Body Fluid Color YELLOW Body Fluid Eosinophils % 0% Body Fluid Lymphocytes (%) 50% Body Fluid Monocytes % 40% Body Fluid Neutrophils % 10% Body Fluid Other Cells (%) 0% Body Fluid RBC 1+ Body Fluid Total Protein < 2.0g/dl Body Fluid Type ASCITES Body Fluid Volume 21.0ml Body Fluid WBC 105/cmm Current Medications Medications (Trade) Dose Ordered Sig/Lisa Route PRN Reason Start Time Stop Time Status Last Admin Dose Admin Morphine Sulfate (morphine) 2 mg ONCE ONCE IV 10/31/16 11:00 10/31/16 11:01 DC 10/31/16 10:57 Lidocaine (Xylocaine 1% (Mpf)) 5 ml STK-MED ONCE .ROUTE 10/31/16 13:07 10/31/16 13:08 DC Procedures/MDM Patient received an ultrasound-guided paracentesis. Fluid studies were corrected as per the note from his physician Dr. Terrance Sanders, or telephone and spoke with on the phone. He explained to me the workup and surgical artery disease that her being considered for the patient and I'll say he will have to return to this emergency room for routine paracenteses. Patient was initially given 2 mg of morphine while his labs were returned so that radiology would perform the paracentesis. That helped his pain a little bit the pain was completely resolved after he received a paracentesis which several liters of fluid were obtained. Initial fluid studies show no signs of infection. I virtually no suspicion for spontaneous bacterial peritonitis as the patient has stable vital signs and feels very well. She is asymptomatic in the initial fluid studies show no serious abnormality him going to discharge him. Laboratories arty obtained a been faxed to per his request. His hyponatremia, anemia, and thrombocytopenia are chronic. He has no symptoms of dizziness or any neurological symptoms. Abdomen from the patient and he can return to this ER whenever he needs to. Departure Diagnosis: Primary Impression: Cirrhosis Additional Impressions: Ascites Hyperglycemia due to type 2 diabetes mellitus Hyponatremia Thrombocytopenia Condition: Stable Patient Instructions: Ascites Additional Instructions: Call your primary care doctor TOMORROW for a SAME-DAY APPOINTMENT.Tell the alumnae secretary that you were referred from this facility.Call again if your condition worsens before your appointment time. GALINDO BAILEY DO Oct 31, 2016 14:56
[2016-10-31 15:28] VITALS: BP 98/71; PULSE 95; RESP 20; TEMP 98.2
== END 2016-10-31 15:30 | disposition home or self-care (01) ==
LOC: E/R 08:27
DX: K74.60 Unspecified cirrhosis of liver (principal); R18.8 Other ascites; E11.65 Type 2 diabetes mellitus with hyperglycemia; E87.1 Hypo-osmolality and hyponatremia; D69.6 Thrombocytopenia, unspecified; F17.210 Nicotine dependence, cigarettes, uncomplicated; Z79.84 Long term (current) use of oral hypoglycemic drugs; Z79.4 Long term (current) use of insulin
CPT/HCPCS: 36415; 80053; 82042; 82150; 84157; 85025; 85610; 85730; 89050; 96374; J2270; Z7502; Z7610

== ENCOUNTER 2016-11-03 09:07 | Emergency (ER) | payer OTHER ==
[~2016-11-03] VITALS: Wt 75.0 kg
[~2016-11-03 09:07] MED LIST changes: +LOSA25TA2 PO; -LOSA25TA47 PO
[2016-11-03] MEDS ORDERED: ONDANSETRON (ODT) 4 MG TAB ODT STA (09:20)
[2016-11-03] MEDS ORDERED: OXYCODONE/ACETAMINOPHEN (5/325) TAB PO ONE (09:30)
--- NOTE | 2016-11-03 09:48 | RADRPT ---
PROCEDURE: XR Chest. CLINICAL INDICATION: Abdominal pain. TECHNIQUE: Single frontal chest x-ray. COMPARISON: Chest radiograph 08/23/2016. FINDINGS: The cardiomediastinal silhouette is unremarkable. Aortic atherosclerotic vascular calcifications are identified. There are bilateral low lung volumes with vascular crowding and mild bibasilar atelectasis. No pneum othorax, pleural effusion or consolidation is seen. No acute osseous abnormality is noted. IMPRESSION: 1. Low lung volumes with vascular crowding and mild bibasilar atelectasis. 2. Aortic atherosclerosis. RPTAT: AA .Adams Caraballo MD, Date Time Electronically viewed and signed by .Adams Caraballo MD, MD on 11/03/2016 09:48 .N/
[2016-11-03 09:56] LABS: BASOPHILS % 0.3 % (0.0-2.0); EOSINOPHILS # 0.2 10^3/ul (0.0-0.5); EOSINOPHILS % 3.5 % (0.0-7.0); HEMATOCRIT 37.2 % (42.0-52.0); HEMOGLOBIN 12.6 g/dl (14.0-18.0); LYMPHOCYTES # 0.8 10^3/ul (0.8-2.9); LYMPHOCYTES % 14.1 % (15.0-51.0); MEAN CORPUSCULAR HGB CONC 33.8 g/dl (32.0-37.0); MEAN CORPUSCULAR VOLUME 88.7 fl (82.0-101.0); MEAN PLATELET VOLUME 9.9 fl (7.4-10.4); MONOCYTES % 17.2 % (0.0-11.0); NEUTROPHIL # 3.8 10^3/ul (1.6-7.5); NEUTROPHILS % 64.9 % (39.0-77.0); PLATELET COUNT 151 10^3/UL (140-440); RED BLOOD COUNT 4.19 10^6/ul (4.70-6.10); RED CELL DISTRIBUTION WIDTH 16.9 % (11.5-14.5); UNCORRECTED WBC 5.8 10^3/ul (4.8-10.8); WHITE BLOOD COUNT 5.8 10^3/ul (4.8-10.8)
[2016-11-03 10:03] LABS: ALBUMIN 2.7 g/dl (3.3-4.9); CHLORIDE 99 mmol/L (97-110)
[2016-11-03 10:04] LABS: POTASSIUM 4.9 mmol/L (3.5-5.1); SODIUM 130 mmol/L (135-144)
[2016-11-03 10:06] LABS: ALBUMIN/GLOBULIN RATIO 0.61; ALKALINE PHOSPHATASE 221 IU/L (42-121); ANION GAP 14 (8-16); ASPARTATE AMINO TRANSFERASE 68 IU/L (15-46); BILIRUBIN,INDIRECT 0.6 mg/dl (0-1.1); BILIRUBIN,TOTAL 0.6 mg/dl (0.2-1.3); BLOOD UREA NITROGEN 19 mg/dl (7-20); CARBON DIOXIDE 22 mmol/L (21-31); CREATININE 0.81 mg/dl (0.61-1.24); TOTAL PROTEIN 7.1 g/dl (6.1-8.1)
[2016-11-03 10:07] LABS: ALANINE AMINOTRANSFERASE 58 IU/L (13-69); CALCIUM 8.7 mg/dl (8.4-10.2); GLUCOSE 113 mg/dl (70-220)
[2016-11-03 10:13] LABS: CONDITION 1; LH ANALYZER COMMENTS 1
[2016-11-03 10:21] LABS: TROPONIN-I < 0.012 ng/ml (0.00-0.12)
[2016-11-03 10:32] LABS: INR 1.07; PROTIME 13.9 Sec (12.2-14.2); PT RATIO 1.1
--- NOTE | 2016-11-03 12:42 | RADRPT ---
PROCEDURE: Ultrasound guided paracentesis CLINICAL INDICATION: Ascites TECHNIQUE: Risks benefits and alternatives of the procedure were explained to the patient. Inform ed written consent was obtained. Preliminary dean of men ultrasound of the abdomen was performed. Fluid was identified in the left lower quadrant. The overlying skin of the right lower quadrant was prepp ed and draped in the usual sterile fashion. Under ultrasound guidance, an 8-[place] catheter was in troduced into the right lower quadrant peritoneal cavity. 7500 cc of clear yellow fluid was obtained without difficulty. The fluid was sent the laboratory for further analysis. The patient tolerated procedure well without complication. A time out was performed. COMPARISON: 10/31/2016 FINDINGS: Approximately 7500 cc of clear yellow fluid was obtained. The fluid sample given to the emergency r oom nurse. IMPRESSION: 1. Successful ultrasound-guided paracentesis. RPTAT: QQ .Clif Crooks MD, Date Time Electronically viewed and signed by .Clif Crooks MD, MD on 11/03/2016 12:41 .d/
--- NOTE | 2016-11-03 13:08 | ERD ---
ER Documentation Chief Complaint Date/Time DATE: 11/03/16 TIME: 12:58 Chief Complaint PARACENTISIS, LAST ONE DONE 10/30 HPI 55-year-old man here with continued abdominal distention requesting paracentesis. He denies fevers or chills, no blood per rectum or melena, no chest pain or shortness of breath. 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 Just a few days ago about 10 L of ascitic fluid was removed ROS All systems reviewed and are negative except as per history of present illness. Medications Home Meds Active Scripts Sodium Polystyrene Sulfonate* (Kayexalate*) 15 Gm/60 Ml Susp, 30 GM PO DAILY for 3 Days, ML Prov:GALINDO BAILEY DO 10/27/16 Insulin Aspart* (Novolog Insulin Pen*) 100 Unit/Ml Soln, 10 UNIT SC WITH MEALS BEDTIME for 28 Days Prov:JERZY BENSON MD 08/27/16 Reported Medications Dapagliflozin Propanediol (Farxiga) 10 Mg Tablet, 10 MG PO DAILY, #30 TAB 08/23/16 Insulin Glargine* (Lantus*) 100 Unit/Ml Soln, 35 UNIT SC QHS, #1 VIAL 08/23/16 Losartan Potassium* (Cozaar*) 25 Mg Tablet, 25 MG PO DAILY, #30 TAB 08/23/16 Pantoprazole* (Protonix*) 40 Mg Tablet.dr, 40 MG PO DAILY, TAB 08/23/16 Furosemide* (Furosemide*) 40 Mg Tablet, 40 MG PO DAILY, TAB 08/23/16 Fenofibrate Nanocrystallized* (Fenofibrate*) 145 Mg Tablet, 145 MG PO DAILY, TAB 08/23/16 Zolpidem Tartrate* (Zolpidem Tartrate*) 10 Mg Tablet, 10 MG PO QHS Y for INSOMNIA, #30 TAB 08/23/16 Spironolactone* (Spironolactone*) 100 Mg Tablet, 100 MG PO QAM, TAB 08/23/16 Discontinued Scripts Furosemide* (Furosemide*) 40 Mg Tablet, 40 MG PO DAILY, #1 TAB Prov:GALINDO BAILEY DO 10/27/16 Nitrofurantoin Monohyd Macrocr* (Macrobid*) 100 Mg Capsr, 100 MG PO BID for 7 Days, CAP Prov:ALESIA CLAROS MD 10/07/16 Allergies Allergies: Coded Allergies: No Known Drug Allergy (Verified Allergy, Unknown, 11/03/16) PMhx/Soc Chronic cirrhosis with recurrent ascites secondary to remote alcoholism, gastritis, hypertension, diabetes mellitus, hypertension History of Surgery: Yes (TONSIL SX, COLON SX) Anesthesia Reaction: No Hx Neurological Disorder: No Hx Respiratory Disorders: No Hx Cardiac Disorders: Yes (HYPOTENSION) Hx Psychiatric Problems: No Hx Miscellaneous Medical Probl: Yes (DM, LIVER FAILURE, RENAL DSE.) Hx Alcohol Use: Yes (FORMER DRINKER: NO DRINK IN OVER A YEAR) Hx Substance Use: No Hx Tobacco Use: Yes (3 CIGS/DAY) Smoking Status: Current some day smoker Physical Exam Vitals Vital Signs Date Time Temp Pulse Resp B/P Pulse Ox O2 Delivery O2 Flow Rate FiO2 11/03/16 13:22 78 18 102/68 98 Room Air 11/03/16 13:10 98.9 88 18 109/67 98 Room Air 11/03/16 09:09 98.0 103 18 92/54 99 Physical Exam GENERAL: Well-developed, well-nourished, well-hydrated, in no apparent distress , looks nontoxic in appearance HEENT: Moist mucous membranes, pink conjunctiva, no cervical spine tenderness or step-off deformities, no goiter, no jaundice or icterus, extraocular movements intact without pain. No submandibular induration, and no pharyngeal erythema NEURO: Alert and oriented 3, cranial nerves II through XII intact bilaterally, pupils equal round reactive to light, no focal deficits or facial asymmetry, sensation intact distally Strength 5/5 in upper and lower extremities bilaterally CARDIAC: Regular rate and rhythm, no murmurs rubs or gallops LUNGS: Clear bilaterally no wheezing crackles or stridor ABDOMEN: Protuberant soft abdomen with evidence of ascites, no rigidity, no rebound, no psoas sign no obturator sign. Normoactive bowel sounds SKIN: Warm and dry to touch, no abrasions, contusions, or hematomas, no lacerations, no ecchymosis, no target lesions, and without ulcers EXTREMITIES: No clubbing cyanosis or edema, calves are bilaterally symmetrical, no Homans sign, no popliteal cord sign. Distal pulses equal and bilateral PSYCH: Normal affect without agitation or irritability Result Diagram: 11/03/1637 1/22/17 0937 Results 24 hrs Laboratory Tests Test 11/03/16 09:37 Alanine Aminotransferase (ALT/SGPT) 58IU/L Albumin 2.7g/dl Albumin/Globulin Ratio 0.61 Alkaline Phosphatase 221IU/L Anion Gap 14 Aspartate Amino Transf (AST/SGOT) 68IU/L Basophils # 0.010^3/ul Basophils % 0.3% Blood Morphology Comment Blood Urea Nitrogen 19mg/dl Calcium Level 8.7mg/dl Carbon Dioxide Level 22mmol/L Chloride Level 99mmol/L Creatinine 0.81mg/dl Direct Bilirubin 0.00mg/dl Eosinophils # 0.210^3/ul Eosinophils % 3.5% Globulin 4.40g/dl Glucose Level 113mg/dl Hematocrit 37.2% Hemoglobin 12.6g/dl INR International Normalized Ratio 1.07 Indirect Bilirubin 0.6mg/dl Lipase 218U/L Lymphocytes # 0.810^3/ul Lymphocytes % 14.1% Mean Corpuscular Hemoglobin 30.0pg Mean Corpuscular Hemoglobin Concent 33.8g/dl Mean Corpuscular Volume 88.7fl Mean Platelet Volume 9.9fl Monocytes # 1.010^3/ul Monocytes % 17.2% Neutrophils # 3.810^3/ul Neutrophils % 64.9% Nucleated Red Blood Cells # 0.010^3/ul Nucleated Red Blood Cells % 0.0/100WBC Platelet Count 23954^3/UL Potassium Level 4.9mmol/L Prothrombin Time 13.9Sec Prothrombin Time Ratio 1.1 Red Blood Count 4.1910^6/ul Red Cell Distribution Width 16.9% Sodium Level 130mmol/L Total Bilirubin 0.6mg/dl Total Protein 7.1g/dl Troponin I < 0.012ng/ml White Blood Count 5.810^3/ul Current Medications Medications (Trade) Dose Ordered Sig/Lisa Route PRN Reason Start Time Stop Time Status Last Admin Dose Admin Oxycodone/ Acetaminophen (Percocet (5/ 325)) 1 tab ONCE ONCE PO 11/03/16 09:30 11/03/16 09:31 DC 11/03/16 09:26 Ondansetron HCl (Zofran Odt) 4 mg ONCE STAT ODT 11/03/16 09:20 11/03/16 09:22 DC 11/03/16 09:26 Procedures/MDM I administered Percocet 1 tablet p.o. and Zofran 4 mg ODT for his symptoms. EKG performed, read by me: 99 bpm, normal sinus rhythm, normal axis, no acute ST segment changes, narrow QRS complex, with good R-wave progression in precordial leads. CBC was unremarkable, electrolytes normal, liver function tests are normal except for mildly elevated alkaline phosphatase, troponin was negative. Patient underwent ultrasound-guided paracentesis and 7.5 L of clear fluid was removed Differential diagnoses considered, included but not limited to acute coronary syndrome, pulmonary embolism, aortic dissection, abdominal aortic aneurysm, sepsis, stroke, meningitis, encephalitis, pneumonia, appendicitis, cholecystitis , bowel obstruction, pyelonephritis, nephrolithiasis, cystitis, as well as metabolic, hematologic, and electrolyte abnormalities. As well as abscess, cellulitis, fractures, and dislocations. Patient feels much better at this time, and vital signs are normal, symptoms have improved. I did give strict instructions to return to the ED if symptoms continue or worsen, patient will otherwise follow-up with primary care physician. Patient understood instructions and agreed to plan. Departure Diagnosis: Primary Impression: Ascites Ascites type: due to alcoholic cirrhosis Qualified Code: K70.31 - Ascites due to alcoholic cirrhosis Condition: DUONG Ulloa MD Nov 03, 2016 13:08
[2016-11-03 13:10] VITALS: TEMP 98.9
[2016-11-03 13:22] VITALS: BP 102/68; PULSE 78; RESP 18
[2016-11-03] MEDS ORDERED: LIDOCAINE 1% (MPF) 5 ML VIAL ONE (14:13)
[2016-11-03 14:16] LABS: FLUID TYPE PARACENTHESIS
[2016-11-03 14:17] LABS: FLUID APPEARANCE HAZY; FLUID RBC EST 1+; FLUID WBC'S 173 /cmm
[2016-11-03 14:26] LABS: FLUID AMYLASE < 30 U/L
[2016-11-03 14:27] LABS: FLUID TOTAL PROTEIN < 2.0 g/dl; FLUID TYPE PARACENTESIS FLUID
[2016-11-03 14:32] LABS: FLUID LYMPHOCYTES 50 %; FLUID MONOCYTES 22 %; FLUID NEUTROPHILS 23 %
[2016-11-03 14:34] LABS: FLUID BASOPHIL 0 %; FLUID EOSINOPHIL 0 %
== END 2016-11-03 14:28 | disposition home or self-care (01) ==
LOC: E/R 09:07
DX: K70.31 Alcoholic cirrhosis of liver with ascites (principal); E11.9 Type 2 diabetes mellitus without complications; F17.210 Nicotine dependence, cigarettes, uncomplicated; I10 Essential (primary) hypertension; Z79.4 Long term (current) use of insulin
CPT/HCPCS: 71010; 80053; 82150; 83615; 83690; 83986; 84157; 84484; 85025; 85610; 87070; 87102; 87116; 89050; 93005; Z7610; 36415

== ENCOUNTER 2016-11-06 14:32 | Emergency (ER) | payer OTHER ==
[~2016-11-06] VITALS: Wt 75.4 kg
[~2016-11-06 14:32] MED LIST changes: -NITR-58 PO
[2016-11-06] MEDS ORDERED: LIDOCAINE 1% (MPF) 5 ML VIAL ONE (16:11)
[2016-11-06 17:05] VITALS: BP 100/69; PULSE 69; RESP 18
--- NOTE | 2016-11-06 17:07 | RADRPT ---
PROCEDURE: Ultrasound guided paracentesis. CLINICAL INDICATION: Ascites and shortness of breath. COMPARISON: 11/03/2016. TECHNIQUE: The risks, benefits, and alternatives were explained to the patient, including but not limited to bl eeding, infection, pain, visceral or vascular damage, shock, and . The patient understood the risks and the alternatives and wished to proceed with the procedure. Informed written consent was o btained. A procedural time out was performed. The patient's name, date of , and procedure to b e performed were verified. Utilizing ultrasound guidance, optimal location for entry to the peritoneal cavity was ascertained. The overlying skin was prepped and draped in the usual sterile fashion. Approximately 10 ml of 1% Xylocaine was injected locally for pain control. Using ultrasound guidance, an 8 Russian catheter wa s introduced into the peritoneal cavity in the right lower quadrant without difficulty. FINDINGS: Initial images demonstrate ascites. Approximately 6.7 liters of serous fluid was aspirated and disc arded. The patient tolerated the procedure well without complication. IMPRESSION: 1. Successful ultrasound-guided paracentesis. RPTAT: QQ .Thierno Ventura MD, MD Date Time Electronically viewed and signed by .Thierno Ventura MD, on 11/06/2016 17:07 .R/
--- NOTE | 2016-11-06 19:08 | ERD ---
ER Documentation Chief Complaint Date/Time DATE: 11/06/16 TIME: 19:06 Chief Complaint ABDOMINAL PAIN AND DISTENTION FOR THE PAST WEEK, NEEDS PARACNETHESIS HPI Patient is a 55-year-old male with cirrhosis and ascites who presents for paracentesis. The patient had a paracentesis done 3 days ago. He said that he needs another paracentesis because his belly is filled with fluid again. He has no fevers. He has abdominal distention and pain which is his usual presentation. He is well-known to myself and to the staff. He had laboratory studies done 3 days ago which showed normal platelets and anticoagulation studies. ROS All systems reviewed and are negative except as per history of present illness. Medications Home Meds Active Scripts Sodium Polystyrene Sulfonate* (Kayexalate*) 15 Gm/60 Ml Susp, 30 GM PO DAILY for 3 Days, ML Prov:GALINDO BAILEY DO 10/27/16 Insulin Aspart* (Novolog Insulin Pen*) 100 Unit/Ml Soln, 10 UNIT SC WITH MEALS BEDTIME for 28 Days Prov:JERZY BENSON MD 08/27/16 Reported Medications Dapagliflozin Propanediol (Farxiga) 10 Mg Tablet, 10 MG PO DAILY, #30 TAB 08/23/16 Insulin Glargine* (Lantus*) 100 Unit/Ml Soln, 35 UNIT SC QHS, #1 VIAL 08/23/16 Losartan Potassium* (Cozaar*) 25 Mg Tablet, 25 MG PO DAILY, #30 TAB 08/23/16 Pantoprazole* (Protonix*) 40 Mg Tablet.dr, 40 MG PO DAILY, TAB 08/23/16 Furosemide* (Furosemide*) 40 Mg Tablet, 40 MG PO DAILY, TAB 08/23/16 Fenofibrate Nanocrystallized* (Fenofibrate*) 145 Mg Tablet, 145 MG PO DAILY, TAB 08/23/16 Zolpidem Tartrate* (Zolpidem Tartrate*) 10 Mg Tablet, 10 MG PO QHS Y for INSOMNIA, #30 TAB 08/23/16 Spironolactone* (Spironolactone*) 100 Mg Tablet, 100 MG PO QAM, TAB 08/23/16 Discontinued Scripts Furosemide* (Furosemide*) 40 Mg Tablet, 40 MG PO DAILY, #1 TAB Prov:GALINDO BAILEY DO 1/15/17 Nitrofurantoin Monohyd Macrocr* (Macrobid*) 100 Mg Capsr, 100 MG PO BID for 7 Days, CAP Prov:ALESIA CLAROS MD 10/07/16 Allergies Allergies: Coded Allergies: No Known Drug Allergy (Verified Allergy, Unknown, 11/03/16) PMhx/Soc History of Surgery: Yes (TONSIL SX, COLON SX) Anesthesia Reaction: No Hx Neurological Disorder: No Hx Respiratory Disorders: No Hx Cardiac Disorders: Yes (HYPOTENSION) Hx Psychiatric Problems: No Hx Miscellaneous Medical Probl: Yes (DM, LIVER FAILURE, RENAL DSE.) Hx Alcohol Use: Yes (FORMER DRINKER: NO DRINK IN OVER A YEAR) Hx Substance Use: No Hx Tobacco Use: Yes (3 CIGS/DAY) Smoking Status: Never smoker FmHx Family History: No diabetes Physical Exam Vitals Vital Signs Date Time Temp Pulse Resp B/P Pulse Ox O2 Delivery O2 Flow Rate FiO2 11/06/16 17:05 69 18 100/69 99 Room Air 11/06/16 14:34 97.5 102 22 99/75 99 Physical Exam Const: No acute distress Head: Atraumatic Eyes: Normal Conjunctiva ENT: Normal External Ears, Nose and Mouth. Neck: Full range of motion..~ No meningismus. Resp: Clear to auscultation bilaterally Cardio: Regular rate and rhythm, no murmurs Abd: Distended abdomen with positive fluid wave Skin: No petechiae or rashes Back: No midline or flank tenderness Ext: No cyanosis, or edema Neur: Awake and alert Psych: Normal Mood and Affect Results 24 hrs Current Medications Medications (Trade) Dose Ordered Sig/Lisa Route PRN Reason Start Time Stop Time Status Last Admin Dose Admin Lidocaine (Xylocaine 1% (Mpf)) 5 ml STK-MED ONCE .ROUTE 11/06/16 16:11 11/06/16 16:12 DC Procedures/MDM Paracentesis performed by radiology. Patient is a 55-year-old male with cirrhosis who presents for paracentesis. The patient had a paracentesis performed by radiology. Laboratory studies done 3 days ago were within normal limits and he did not need repeat laboratory studies. He feels better after paracentesis. I doubt spontaneous bacterial peritonitis. I believe outpatient management is appropriate. The patient should follow-up with his primary doctor and schedule these paracentesis as an outpatient. Departure Diagnosis: Primary Impression: Ascites Ascites type: other type Qualified Code: R18.8 - Other ascites Additional Impression: Abdominal pain Abdominal location: generalized Qualified Code: R10.84 - Generalized abdominal pain Condition: Fair Patient Instructions: Ascites Additional Instructions: Call your primary care doctor TOMORROW for an appointment during the next 1-2 days.See the doctor sooner or return here if your condition worsens before your appointment time. ALESIA CLAROS MD Nov 06, 2016 19:08
== END 2016-11-06 17:08 | disposition home or self-care (01) ==
LOC: E/R 14:32
DX: R18.8 Other ascites (principal); R10.84 Generalized abdominal pain; F17.210 Nicotine dependence, cigarettes, uncomplicated; E11.9 Type 2 diabetes mellitus without complications; Z79.4 Long term (current) use of insulin; Z79.84 Long term (current) use of oral hypoglycemic drugs
CPT/HCPCS: Z7502; Z7610

== ENCOUNTER 2016-11-09 08:59 | Emergency (ER) | payer OTHER ==
[~2016-11-09] VITALS: Wt 74.0 kg
--- NOTE | 2016-11-09 09:18 | ERD ---
ER Documentation Chief Complaint Date/Time DATE: 11/09/16 TIME: 09:18 Chief Complaint ABD PAIN AND DISTENTION. HERE FOR PARACENTHESIS. MILD DISTRESS HPI 55-year-old male well-known to this ED history of diabetes mellitus and liver cirrhosis with recurrent ascites requiring frequent paracentesis most recently ambulatory to the ED complaining of increasing abdominal distention causing shortness of breath while supine. No chest pain or palpitations. Denies abdominal pain, nausea, vomiting, diarrhea or constipation. No hematemesis hematochezia. Denies dysuria or polyuria. No headache, neck pain altered mental status. No fevers or chills. ROS All systems reviewed and are negative except as per history of present illness. Medications Home Meds Active Scripts Sodium Polystyrene Sulfonate* (Kayexalate*) 15 Gm/60 Ml Susp, 30 GM PO DAILY for 3 Days, ML Prov:GALINDO BAILEY DO 10/27/16 Insulin Aspart* (Novolog Insulin Pen*) 100 Unit/Ml Soln, 10 UNIT SC WITH MEALS BEDTIME for 28 Days Prov:JERZY BENSON MD 08/27/16 Reported Medications Dapagliflozin Propanediol (Farxiga) 10 Mg Tablet, 10 MG PO DAILY, #30 TAB 08/23/16 Insulin Glargine* (Lantus*) 100 Unit/Ml Soln, 35 UNIT SC QHS, #1 VIAL 08/23/16 Losartan Potassium* (Cozaar*) 25 Mg Tablet, 25 MG PO DAILY, #30 TAB 08/23/16 Pantoprazole* (Protonix*) 40 Mg Tablet.dr, 40 MG PO DAILY, TAB 08/23/16 Furosemide* (Furosemide*) 40 Mg Tablet, 40 MG PO DAILY, TAB 08/23/16 Fenofibrate Nanocrystallized* (Fenofibrate*) 145 Mg Tablet, 145 MG PO DAILY, TAB 08/23/16 Zolpidem Tartrate* (Zolpidem Tartrate*) 10 Mg Tablet, 10 MG PO QHS Y for INSOMNIA, #30 TAB 08/23/16 Spironolactone* (Spironolactone*) 100 Mg Tablet, 100 MG PO QAM, TAB 08/23/16 Discontinued Scripts Furosemide* (Furosemide*) 40 Mg Tablet, 40 MG PO DAILY, #1 TAB Prov:GALINDO BAILEY DO 10/27/16 Nitrofurantoin Monohyd Macrocr* (Macrobid*) 100 Mg Capsr, 100 MG PO BID for 7 Days, CAP Prov:ALESIA CLAROS MD 10/07/16 Allergies Allergies: Coded Allergies: No Known Drug Allergy (Verified Allergy, Unknown, 11/09/16) PMhx/Soc Reviewed in chart, as per HPI. History of Surgery: Yes (TONSIL SX, COLON SX) Anesthesia Reaction: No Hx Neurological Disorder: No Hx Respiratory Disorders: No Hx Cardiac Disorders: Yes (HYPOTENSION) Hx Psychiatric Problems: No Hx Miscellaneous Medical Probl: Yes (DM, LIVER FAILURE, RENAL DSE.) Hx Alcohol Use: Yes (FORMER DRINKER: NO DRINK IN OVER A YEAR) Hx Substance Use: No Hx Tobacco Use: Yes (3 CIGS/DAY) FmHx Not relevant to presenting complaint. Physical Exam Vitals Vital Signs Date Time Temp Pulse Resp B/P Pulse Ox O2 Delivery O2 Flow Rate FiO2 11/09/16 12:23 75 19 102/69 97 Room Air 11/09/16 10:18 75 19 92/60 96 Room Air 11/09/16 09:01 98.5 101 21 97/55 99 Physical Exam Const: Alert, no acute distress. Head: Atraumatic Eyes: Normal Conjunctiva ENT: Normal External Ears, Nose and Mouth. Neck: Full range of motion. No JVD. Resp: Decreased at the bases but otherwise clear to auscultation bilaterally Cardio: Regular rate and rhythm, no murmurs Abd: Soft, markedly distended. Positive fluid wave. Nontender. No rebound or guarding. Skin: No petechiae or rashes Back: No midline or flank tenderness Ext: No cyanosis,. 1+ edema. Neur: Awake and alert Psych: Normal Mood and Affect Result Diagram: 11/09/1692911/09/1630 Results 24 hrs Laboratory Tests Test 11/09/16 09:30 Activated Partial Thromboplast Time 34.0Sec Alanine Aminotransferase (ALT/SGPT) 65IU/L Albumin 2.8g/dl Albumin/Globulin Ratio 0.65 Alkaline Phosphatase 259IU/L Anion Gap 14 Aspartate Amino Transf (AST/SGOT) 80IU/L Basophils # 0.110^3/ul Basophils % 1.2% Blood Morphology Comment Blood Urea Nitrogen 26mg/dl Calcium Level 9.1mg/dl Carbon Dioxide Level 19mmol/L Chloride Level 97mmol/L Creatinine 0.67mg/dl Direct Bilirubin 0.00mg/dl Eosinophils # 0.210^3/ul Eosinophils % 3.3% Globulin 4.30g/dl Glucose Level 190mg/dl Hematocrit 36.3% Hemoglobin 12.7g/dl INR International Normalized Ratio 1.09 Indirect Bilirubin 0.5mg/dl Lymphocytes # 0.810^3/ul Lymphocytes % 10.8% Mean Corpuscular Hemoglobin 30.5pg Mean Corpuscular Hemoglobin Concent 35.0g/dl Mean Corpuscular Volume 87.2fl Mean Platelet Volume 10.5fl Monocytes # 1.110^3/ul Monocytes % 14.2% Neutrophils # 5.210^3/ul Neutrophils % 70.5% Nucleated Red Blood Cells # 0.010^3/ul Nucleated Red Blood Cells % 0.0/100WBC Platelet Count 89233^3/UL Potassium Level 4.4mmol/L Prothrombin Time 14.1Sec Prothrombin Time Ratio 1.1 Red Blood Count 4.1710^6/ul Red Cell Distribution Width 16.6% Sodium Level 126mmol/L Total Bilirubin 0.5mg/dl Total Protein 7.1g/dl White Blood Count 7.410^3/ul Current Medications Medications (Trade) Dose Ordered Sig/Lisa Route PRN Reason Start Time Stop Time Status Last Admin Dose Admin Lidocaine (Xylocaine 1% (Mpf)) 5 ml STK-MED ONCE .ROUTE 11/09/16 11:55 11/09/16 11:56 DC PROCEDURE: Ultrasound guided paracentesis CLINICAL INDICATION: Ascites TECHNIQUE: The risks benefits and alternatives of the procedure were explained to the patient. Informed written consent was obtained. The patient understood the risks benefits and alternatives and wished to proceed with the procedure. A time out was performed. The overlying skin of the right lower quadrant of the abdomen was prepped and draped in the usual sterile fashion. Approximately 10 cc of lidocaine was injected locally for pain control. Utilizing ultrasound guidance, an 6-Syriac paracentesis catheter was placed into the peritoneal cavity without difficulty. Fluid was drained into vacuum bottles. After completion of draining fluid, the catheter was removed and direct pressure was applied to the puncture site. A compression bandage was then placed at the puncture site. The patient tolerated the procedure well without complication. The fluid was not sent to the lab for further analysis. COMPARISON: 11/06/2016 FINDINGS: Surgeon: Cami LOPEZ. Preprocedural diagnosis: Ascites. Postprocedural diagnosis: Ascites. Samples removed: 5500 cc of clear yellow fluid was obtained. Complications: None. Estimated blood loss: 0 cc. Condition: Stable and unchanged. IMPRESSION: 1. Successful ultrasound-guided paracentesis. RPTAT: QQ .Elias Almanza MD, MD Date Time Electronically viewed and signed by .Elias Almanza MD, MD on 11/09/2016 12: 28 .M/ Procedures/MDM DOCUMENTS REVIEWED: ED nurse, prior ED, prior records REEXAMINATION/REEVALUATION: Time: 12: 30. Doing well. Back from interventional radiology. Vital signs stable. [employer]-year-old male well-known to this ED history of diabetes mellitus and liver cirrhosis with recurrent ascites requiring frequent paracentesis most recently 11/06/16 ambulatory to the ED complaining of increasing abdominal distention causing shortness of breath while supine. Paracentesis performed under ultrasound guidance by interventional radiology. 5.5 L of clear fluid removed. Patient feels much better. Abdomen soft nontender. No signs of simultaneous bacterial peritonitis. Stable for discharge with coronary instructions and outpatient follow-up as counseled. Counseled patient regarding diagnostic workup, diagnosis and need for followup. Understands to return to ED if symptoms recur, worsen or any other concerns. Departure Diagnosis: Primary Impression: Ascites Ascites type: due to alcoholic cirrhosis Qualified Code: K70.31 - Ascites due to alcoholic cirrhosis Additional Impression: Liver cirrhosis Hepatic cirrhosis type: alcoholic cirrhosis Ascites presence: with ascites Qualified Code: K70.31 - Alcoholic cirrhosis of liver with ascites Condition: Stable Patient Instructions: Ascites, Cirrhosis of the Liver BEBE DOUGHERTY MD Nov 09, 2016 09:18
[2016-11-09 09:43] LABS: BASOPHIL # 0.1 10^3/ul (0.0-0.1); BASOPHILS % 1.2 % (0.0-2.0); EOSINOPHILS # 0.2 10^3/ul (0.0-0.5); EOSINOPHILS % 3.3 % (0.0-7.0); HEMATOCRIT 36.3 % (42.0-52.0); HEMOGLOBIN 12.7 g/dl (14.0-18.0); LYMPHOCYTES # 0.8 10^3/ul (0.8-2.9); LYMPHOCYTES % 10.8 % (15.0-51.0); MEAN CORPUSCULAR HEMOGLOBIN 30.5 pg (29.0-33.0); MEAN CORPUSCULAR VOLUME 87.2 fl (82.0-101.0); MEAN PLATELET VOLUME 10.5 fl (7.4-10.4); MONOCYTE # 1.1 10^3/ul (0.3-0.9); MONOCYTES % 14.2 % (0.0-11.0); NEUTROPHIL # 5.2 10^3/ul (1.6-7.5); NEUTROPHILS % 70.5 % (39.0-77.0); PLATELET COUNT 153 10^3/UL (140-440); RED BLOOD COUNT 4.17 10^6/ul (4.70-6.10); RED CELL DISTRIBUTION WIDTH 16.6 % (11.5-14.5); UNCORRECTED WBC 7.4 10^3/ul (4.8-10.8); WHITE BLOOD COUNT 7.4 10^3/ul (4.8-10.8)
[2016-11-09 09:49] LABS: ALBUMIN 2.8 g/dl (3.3-4.9); INR 1.09; PROTIME 14.1 Sec (12.2-14.2); PT RATIO 1.1
[2016-11-09 09:50] LABS: POTASSIUM 4.4 mmol/L (3.5-5.1)
[2016-11-09 09:51] LABS: CONDITION 1; LH ANALYZER COMMENTS 1
[2016-11-09 09:52] LABS: BILIRUBIN,INDIRECT 0.5 mg/dl (0-1.1); BILIRUBIN,TOTAL 0.5 mg/dl (0.2-1.3); CREATININE 0.67 mg/dl (0.61-1.24)
[2016-11-09 09:53] LABS: ALBUMIN/GLOBULIN RATIO 0.65; CALCIUM 9.1 mg/dl (8.4-10.2); TOTAL PROTEIN 7.1 g/dl (6.1-8.1)
[2016-11-09] MEDS ORDERED: LIDOCAINE 1% (MPF) 5 ML VIAL ONE (11:55)
[2016-11-09 12:23] VITALS: BP 102/69; PULSE 75; RESP 19
--- NOTE | 2016-11-09 12:29 | RADRPT ---
PROCEDURE: Ultrasound guided paracentesis CLINICAL INDICATION: Ascites TECHNIQUE: The risks benefits and alternatives of the procedure were explained to the patient. In formed written consent was obtained. The patient understood the risks benefits and alternatives and wished to proceed with the procedure. A time out was performed. The overlying skin of the right lower quadrant of the abdomen was prepped and draped in the usual sterile fashion. Approximately 10 cc of lidocaine was injected locally for pain control. Utilizing ultrasound guidance, an 6-Sudanese p aracentesis catheter was placed into the peritoneal cavity without difficulty. Fluid was drained i nto vacuum bottles. After completion of draining fluid, the catheter was removed and direct pressur e was applied to the puncture site. A compression bandage was then placed at the puncture site. e patient tolerated the procedure well without complication. The fluid was not sent to the lab fo r further analysis. COMPARISON: 11/06/2016 FINDINGS: Surgeon: Cami LOPEZ. Preprocedural diagnosis: Ascites. Postprocedural diagnosis: Ascites. Samples removed: 5500 cc of clear yellow fluid was obtained. Complications: None. Estimated blood loss: 0 cc. Condition: Stable and unchanged. IMPRESSION: 1. Successful ultrasound-guided paracentesis. RPTAT: QQ .Elias Almanza MD, MD Date Time Electronically viewed and signed by .Elias Almanza MD, on 11/09/2016 12:28 .[place]/
== END 2016-11-09 12:38 | disposition home or self-care (01) ==
LOC: E/R 08:59
DX: K70.31 Alcoholic cirrhosis of liver with ascites (principal); E11.9 Type 2 diabetes mellitus without complications; F17.210 Nicotine dependence, cigarettes, uncomplicated; Z79.4 Long term (current) use of insulin; Z79.84 Long term (current) use of oral hypoglycemic drugs
CPT/HCPCS: 80053; 85025; 85610; 85730; Z7502; Z7610

== ENCOUNTER 2016-11-12 09:22 | Emergency (ER) | END 2016-11-12 12:18 | disposition home or self-care (01) | DX: R18.8 Other ascites (principal); R10.84 Generalized abdominal pain; F17.210 Nicotine dependence, cigarettes, uncomplicated; E11.9 Type 2 diabetes mellitus without complications; Z79.4 Long term (current) use of insulin; Z79.84 Long term (current) use of oral hypoglycemic drugs ==

== ENCOUNTER 2016-11-14 10:09 | Emergency (ER) | payer OTHER ==
[~2016-11-14] VITALS: Wt 75.0 kg
--- NOTE | 2016-11-14 13:56 | ERD ---
ER Documentation Chief Complaint Date/Time DATE: 11/14/16 TIME: 13:53 Chief Complaint ABDOMINAL PAIN AND DISTENTION FOR THE PAST FEW DAYS. NEEDS PARACENTHESIS HPI Patient is a 56-year-old male who reports to the emergency department today complaining of abdominal distention. He has a history of liver failure with cirrhosis. He gets periodic paracentesis for this. He says that he is in need of paracentesis once again. He denies any significant abdominal pain, fever, nausea, vomiting, confusion, chest pain, shortness of breath, diarrhea, dysuria, hematuria, flank or back pain, bleeding, bruising, or abnormal rashes. He says his abdomen is uncomfortable however this is how it feels when he gets distended like this. The remainder of the systems are negative. ROS All systems reviewed and are negative except as per history of present illness. Medications Home Meds Active Scripts Sodium Polystyrene Sulfonate* (Kayexalate*) 15 Gm/60 Ml Susp, 30 GM PO DAILY for 3 Days, ML Prov:GALINDO BAILEY DO 10/27/16 Insulin Aspart* (Novolog Insulin Pen*) 100 Unit/Ml Soln, 10 UNIT SC WITH MEALS BEDTIME for 28 Days Prov:JERZY BENSON MD 08/27/16 Reported Medications Dapagliflozin Propanediol (Farxiga) 10 Mg Tablet, 10 MG PO DAILY, #30 TAB 08/23/16 Insulin Glargine* (Lantus*) 100 Unit/Ml Soln, 35 UNIT SC QHS, #1 VIAL 08/23/16 Losartan Potassium* (Cozaar*) 25 Mg Tablet, 25 MG PO DAILY, #30 TAB 08/23/16 Pantoprazole* (Protonix*) 40 Mg Tablet.dr, 40 MG PO DAILY, TAB 08/23/16 Furosemide* (Furosemide*) 40 Mg Tablet, 40 MG PO DAILY, TAB 08/23/16 Fenofibrate Nanocrystallized* (Fenofibrate*) 145 Mg Tablet, 145 MG PO DAILY, TAB 08/23/16 Zolpidem Tartrate* (Zolpidem Tartrate*) 10 Mg Tablet, 10 MG PO QHS Y for INSOMNIA, #30 TAB 08/23/16 Spironolactone* (Spironolactone*) 100 Mg Tablet, 100 MG PO QAM, TAB 08/23/16 Allergies Allergies: Coded Allergies: No Known Drug Allergy (Verified Allergy, Unknown, 11/12/16) PMhx/Soc History of Surgery: Yes (TONSIL SX, COLON SX) Anesthesia Reaction: No Hx Neurological Disorder: No Hx Respiratory Disorders: No Hx Cardiac Disorders: Yes (HYPOTENSION) Hx Psychiatric Problems: No Hx Miscellaneous Medical Probl: Yes (DM, LIVER FAILURE, RENAL DSE.) Hx Alcohol Use: Yes (FORMER DRINKER: NO DRINK IN OVER A YEAR) Hx Substance Use: No Hx Tobacco Use: Yes (3 CIGS/DAY) FmHx Family History: coronary disease, diabetes Physical Exam Vitals Vital Signs Date Time Temp Pulse Resp B/P Pulse Ox O2 Delivery O2 Flow Rate FiO2 11/14/16 14:05 98.2 95 20 98/70 99 Room Air 11/14/16 10:27 98.9 100 21 98/55 99 Physical Exam Const: [] Well-developed thin male sitting on the bed in no acute distress Head: Atraumatic normocephalic Eyes: Normal Conjunctiva ENT: Normal External Ears, Nose and Mouth. Neck: Full range of motion..~ No meningismus. Resp: Clear to auscultation bilaterally Cardio: Regular rate and rhythm, no murmurs Abd: Soft, nontender, grossly distended with a ascitic fluid wave, no masses , rebound, or guarding, normal bowel sounds Skin: No petechiae or rashes Back: No midline or flank tenderness Ext: No cyanosis, mild nonpitting bilateral lower extremity edema Neur: Awake and alert oriented 3, GCS 15 Psych: Normal Mood and Affect Result Diagram: 11/14/16 1350 Results 24 hrs Laboratory Tests Test 11/14/16 13:50 Activated Partial Thromboplast Time 35.3Sec Basophils # 0.010^3/ul Basophils % 0.6% Blood Morphology Comment Eosinophils # 0.110^3/ul Eosinophils % 2.1% Hematocrit 38.7% Hemoglobin 12.9g/dl INR International Normalized Ratio 1.13 Lymphocytes # 0.710^3/ul Lymphocytes % 10.5% Mean Corpuscular Hemoglobin 30.2pg Mean Corpuscular Hemoglobin Concent 33.4g/dl Mean Corpuscular Volume 90.5fl Mean Platelet Volume 10.8fl Monocytes # 0.810^3/ul Monocytes % 12.8% Neutrophils # 4.810^3/ul Neutrophils % 74.0% Nucleated Red Blood Cells # 0.010^3/ul Nucleated Red Blood Cells % 0.0/100WBC Platelet Count 62484^3/UL Prothrombin Time 14.5Sec Prothrombin Time Ratio 1.1 Red Blood Count 4.2810^6/ul Red Cell Distribution Width 16.6% White Blood Count 6.410^3/ul Current Medications Medications (Trade) Dose Ordered Sig/Lisa Route PRN Reason Start Time Stop Time Status Last Admin Dose Admin Sodium Chloride (NS) 1,000 ml @ 1,000 mls/hr Q1H ONCE IV 11/14/16 14:30 11/14/16 15:29 11/14/16 14:15 Morphine Sulfate (morphine) 4 mg ONCE STAT IV 11/14/16 14:04 11/14/16 14:11 DC 11/14/16 14:15 Ondansetron HCl (Zofran Inj) 4 mg ONCE STAT IV 11/14/16 14:04 11/14/16 14:11 DC 11/14/16 14:15 Procedures/MDM Differential includes recurrent cirrhosis, spontaneous bacterial peritonitis, liver failure Departure Diagnosis: Primary Impression: Ascites Ascites type: other type Qualified Code: R18.8 - Other ascites Additional Impressions: Liver failure without hepatic coma Liver failure chronicity: chronic Qualified Code: K72.10 - Chronic liver failure without hepatic coma Diabetes mellitus Diabetes mellitus type: type 2 Diabetes mellitus complication status: with other specified complication Diabetes mellitus chcf insulin use: unspecified superintendent terminal insulin use status Qualified Code: E11.69 - Type 2 diabetes mellitus with other specified complication, unspecified superintendent terminal insulin use status EMMETT ANDREA Nov 14, 2016 13:56
[2016-11-14] MEDS ORDERED: morphine 4 MG/ML VIAL IV STA (14:04)
[2016-11-14] MEDS ORDERED: ONDANSETRON 4 MG INJ IV STA (14:04)
[2016-11-14] MEDS ORDERED: SOD CHLORIDE 0.9% 1,000 ML IV ONE (14:30)
[2016-11-14 14:35] LABS: BASOPHILS % 0.6 % (0.0-2.0); EOSINOPHILS # 0.1 10^3/ul (0.0-0.5); EOSINOPHILS % 2.1 % (0.0-7.0); HEMATOCRIT 38.7 % (42.0-52.0); HEMOGLOBIN 12.9 g/dl (14.0-18.0); LYMPHOCYTES # 0.7 10^3/ul (0.8-2.9); LYMPHOCYTES % 10.5 % (15.0-51.0); MEAN CORPUSCULAR HEMOGLOBIN 30.2 pg (29.0-33.0); MEAN CORPUSCULAR HGB CONC 33.4 g/dl (32.0-37.0); MEAN CORPUSCULAR VOLUME 90.5 fl (82.0-101.0); MEAN PLATELET VOLUME 10.8 fl (7.4-10.4); MONOCYTE # 0.8 10^3/ul (0.3-0.9); MONOCYTES % 12.8 % (0.0-11.0); NEUTROPHIL # 4.8 10^3/ul (1.6-7.5); PLATELET COUNT 168 10^3/UL (140-440); RED BLOOD COUNT 4.28 10^6/ul (4.70-6.10); RED CELL DISTRIBUTION WIDTH 16.6 % (11.5-14.5); UNCORRECTED WBC 6.4 10^3/ul (4.8-10.8); WHITE BLOOD COUNT 6.4 10^3/ul (4.8-10.8)
[2016-11-14 14:42] LABS: ALBUMIN 2.6 g/dl (3.3-4.9); CONDITION 1; LH ANALYZER COMMENTS 1
[2016-11-14 14:43] LABS: INR 1.13; PROTIME 14.5 Sec (12.2-14.2); PT RATIO 1.1
[2016-11-14 14:44] LABS: CREATININE 0.73 mg/dl (0.61-1.24); PARTIAL THROMBOPLASTIN TIME 35.3 Sec (25.0-35.0)
[2016-11-14 14:45] LABS: ALBUMIN/GLOBULIN RATIO 0.65; BILIRUBIN,INDIRECT 0.4 mg/dl (0-1.1); BILIRUBIN,TOTAL 0.4 mg/dl (0.2-1.3); TOTAL PROTEIN 6.6 g/dl (6.1-8.1)
[2016-11-14 14:46] LABS: CALCIUM 8.9 mg/dl (8.4-10.2)
[2016-11-14 15:20] LABS: POTASSIUM 6.3 mmol/L (3.5-5.1)
[2016-11-14] MEDS ORDERED: FUROSEMIDE 40 MG INJ IV ONE (15:30)
[2016-11-14] MEDS ORDERED: ALBUTEROL 0.083% (NEB) 2.5 MG/3 ML AMP HHN ONE (15:30)
[2016-11-14] MEDS ORDERED: LIDOCAINE 1% (MPF) 5 ML VIAL ONE (15:49)
--- NOTE | 2016-11-14 17:03 | RADRPT ---
PROCEDURE: Ultrasound guided paracentesis. CLINICAL INDICATION: Ascites and shortness of breath. COMPARISON: 11/12/2016. TECHNIQUE: The risks, benefits, and alternatives were explained to the patient, including but not limited to bl eeding, infection, pain, visceral or vascular damage, shock, and . The patient understood the risks and the alternatives and wished to proceed with the procedure. Informed written consent was o btained. A procedural time out was performed. The patient's name, date of , and procedure to b e performed were verified. Utilizing ultrasound guidance, optimal location for entry to the peritoneal cavity was ascertained. The overlying skin was prepped and draped in the usual sterile fashion. Approximately 10 ml of 1% Xylocaine was injected locally for pain control. Using ultrasound guidance, an 8 Tongan catheter wa s introduced into the peritoneal cavity in the right lower quadrant without difficulty. FINDINGS: Initial images demonstrate ascites. Approximately 5.4 liters of serous fluid was aspirated and disc arded. The patient tolerated the procedure well without complication. IMPRESSION: 1. Successful ultrasound-guided paracentesis. RPTAT: QQ .Thierno Ventura MD, MD Date Time Electronically viewed and signed by .Thierno Ventura MD, on 11/14/2016 17:03 .R/
[2016-11-14 18:47] LABS: POTASSIUM 4.9 mmol/L (3.5-5.1)
[2016-11-14 18:50] LABS: CALCIUM 9.1 mg/dl (8.4-10.2); CREATININE 0.63 mg/dl (0.61-1.24)
--- NOTE | 2016-11-14 19:27 | QN ---
Documentation Comment HPI: 56-year-old man signed out to me pending labs and ultrasound-guided paracentesis. Patient has no complaints of chest pain or shortness of breath although he has some discomfort due to recent abdominal distention requiring paracentesis. He has had multiple previous paracentesis procedures over the last month for chronic recurrent ascites Past medical history: Chronic recurrent ascites, alcoholic cirrhosis, hypertension Physical exam: GENERAL: Well-developed, well-nourished, well-hydrated, in no apparent distress , looks nontoxic in appearance HEENT: Moist mucous membranes, pink conjunctiva, no cervical spine tenderness or step-off deformities, no goiter, no jaundice or icterus, extraocular movements intact without pain. No submandibular induration, and no pharyngeal erythema NEURO: Alert and oriented 3, cranial nerves II through XII intact bilaterally, pupils equal round reactive to light, no focal deficits or facial asymmetry, sensation intact distally Strength 5/5 in upper and lower extremities bilaterally CARDIAC: Regular rate and rhythm, no murmurs rubs or gallops LUNGS: Clear bilaterally no wheezing crackles or stridor ABDOMEN: Soft protuberant abdomen without guarding or rigidity, no rebound, no psoas sign no obturator sign. Normoactive bowel sounds SKIN: Warm and dry to touch, no abrasions, contusions, or hematomas, no lacerations, no ecchymosis, no target lesions, and without ulcers EXTREMITIES: No clubbing cyanosis or edema, calves are bilaterally symmetrical, no Homans sign, no popliteal cord sign. Distal pulses equal and bilateral PSYCH: Normal affect without agitation or irritability Medical decision making: CBC was unremarkable, electrolytes revealed a potassium of 6.3. I immediately administered furosemide 60 mg IV 1 for diuresis and to help with hyperkalemia. I also administered albuterol 10 mg via nebulizer. EKG was performed, read by me revealed a sinus tachycardia at 104 bpm, normal axis, narrow QRS complex, no concerning ST elevations or depressions noted, no peak T waves noted. Patient received his paracentesis about 5.5 L was removed and patient feels much better. I repeated the BMP and potassium improved to 4.9. Differential diagnoses considered, included but not limited to acute coronary syndrome, pulmonary embolism, aortic dissection, abdominal aortic aneurysm, sepsis, stroke, meningitis, encephalitis, pneumonia, appendicitis, cholecystitis , bowel obstruction, pyelonephritis, nephrolithiasis, cystitis, as well as metabolic, hematologic, and electrolyte abnormalities. As well as abscess, cellulitis, fractures, and dislocations. Patient feels much better at this time, and vital signs are normal, symptoms have improved. I did give strict instructions to return to the ED if symptoms continue or worsen, patient will otherwise follow-up with primary care physician. Patient understood instructions and agreed to plan. Diagnostic impression: #1) acute ascites post paracentesis 2.) Acute hyperkalemia DUONG SALMERON MD Nov 14, 2016 19:27
[2016-11-14 19:58] VITALS: BP 106/60; PULSE 99; RESP 18; TEMP 98.2
== END 2016-11-14 19:59 | disposition home or self-care (01) ==
LOC: E/R 10:09
DX: R18.8 Other ascites (principal); K72.10 Chronic hepatic failure without coma; E11.69 Type 2 diabetes mellitus with other specified complication; R06.02 Shortness of breath; Z79.4 Long term (current) use of insulin
CPT/HCPCS: 36415; 80048; 80053; 85025; 85610; 85730; 93005; 94644; 96374; 96375; J1940; J2270; J2405; J7030; Z7502; Z7610

== ENCOUNTER 2016-11-17 09:13 | Emergency (ER) | payer OTHER ==
[~2016-11-17] VITALS: Ht 170.2 cm; Wt 70.0 kg
[~2016-11-17 09:13] MED LIST changes: -SODI15OR8 PO
[2016-11-17 09:18] VITALS: Ht 170.2 cm; Wt 70.0 kg
[2016-11-17 10:11] LABS: BASOPHILS % 0.8 % (0.0-2.0); EOSINOPHILS # 0.1 10^3/ul (0.0-0.5); EOSINOPHILS % 2.4 % (0.0-7.0); HEMATOCRIT 37.6 % (42.0-52.0); HEMOGLOBIN 12.8 g/dl (14.0-18.0); LYMPHOCYTES # 0.6 10^3/ul (0.8-2.9); LYMPHOCYTES % 11.3 % (15.0-51.0); MEAN CORPUSCULAR HEMOGLOBIN 30.3 pg (29.0-33.0); MEAN CORPUSCULAR HGB CONC 34.1 g/dl (32.0-37.0); MEAN PLATELET VOLUME 10.1 fl (7.4-10.4); MONOCYTE # 0.7 10^3/ul (0.3-0.9); MONOCYTES % 14.7 % (0.0-11.0); NEUTROPHIL # 3.6 10^3/ul (1.6-7.5); NEUTROPHILS % 70.8 % (39.0-77.0); PLATELET COUNT 152 10^3/UL (140-440); RED BLOOD COUNT 4.22 10^6/ul (4.70-6.10); RED CELL DISTRIBUTION WIDTH 16.5 % (11.5-14.5); UNCORRECTED WBC 5.1 10^3/ul (4.8-10.8); WHITE BLOOD COUNT 5.1 10^3/ul (4.8-10.8)
[2016-11-17 10:12] LABS: CONDITION 1; LH ANALYZER COMMENTS 1
[2016-11-17 10:16] LABS: INR 1.11; PROTIME 14.3 Sec (12.2-14.2); PT RATIO 1.1
[2016-11-17 10:17] LABS: POTASSIUM 5.3 mmol/L (3.5-5.1)
[2016-11-17 10:19] LABS: CREATININE 0.67 mg/dl (0.61-1.24)
[2016-11-17 10:20] LABS: CALCIUM 8.9 mg/dl (8.4-10.2)
[2016-11-17] MEDS ORDERED: LIDOCAINE 1% (MPF) 5 ML VIAL ONE (12:37)
--- NOTE | 2016-11-17 12:41 | RADRPT ---
PROCEDURE: Ultrasound guided paracentesis CLINICAL INDICATION: Ascites TECHNIQUE: The risks, benefits, and alternatives were explained to the patient, including but not limited to bleeding, infection, pain, visceral or vascular damage, shock, and . The patient und erstood the risks and the alternatives and wished to proceed with the procedure. Informed written co nsent was obtained. A procedural time out was performed. The patient's name, date of , and proc edure to be performed were verified. Preliminary schedule announcer ultrasound of the abdomen was performed. Fluid was identified in the right lower quadrant. The overlying skin of the right lower quadrant was prepped and draped in the usual steril e fashion. Under ultrasound guidance, a skin an 8-Bahraini catheter was introduced into the right low er quadrant peritoneal cavity after 10 ml of 1% lidocaine was injected for pain control. 7400 ml of clear yellow fluid was obtained without difficulty. The fluid was sent the laboratory for further a nalysis. The patient tolerated procedure well without complication. COMPARISON: 11/14/2016 FINDINGS: Approximately 7400 ml of clear yellow fluid was obtained. The fluid was sent to the laboratory for further evaluation. RPTAT: QQ IMPRESSION: 1. Successful ultrasound-guided paracentesis. .Rosey Osuna MD, Date Time Electronically viewed and signed by .Rosey Osuna MD, MD on 11/17/2016 12:40 .T/
--- NOTE | 2016-11-17 12:56 | ERD ---
ER Documentation Chief Complaint Date/Time DATE: 11/17/16 TIME: 12:53 Chief Complaint NEEDS PARACENTESIS HPI 56-year-old male returns to the emergency department with his family for recurrent paracentesis. Patient is a long-standing history of alcohol induced cirrhosis with ascites. He is apparently awaiting a TIPS procedure. Patient returns the emergency department for recurrent paracentesis. Patient reports no fevers chills abdominal pain. Patient reports no GI bleeding symptoms. According to the family, patient has not been confused or encephalopathic. Patient has had no shortness of breath. ROS All systems reviewed and are negative except as per history of present illness. Medications Home Meds Active Scripts Insulin Aspart* (Novolog Insulin Pen*) 100 Unit/Ml Soln, 10 UNIT SC WITH MEALS BEDTIME for 28 Days Prov:JERZY BENSON MD 08/27/16 Reported Medications Dapagliflozin Propanediol (Farxiga) 10 Mg Tablet, 10 MG PO DAILY, #30 TAB 08/23/16 Insulin Glargine* (Lantus*) 100 Unit/Ml Soln, 35 UNIT SC QHS, #1 VIAL 08/23/16 Losartan Potassium* (Cozaar*) 25 Mg Tablet, 25 MG PO DAILY, #30 TAB 08/23/16 Pantoprazole* (Protonix*) 40 Mg Tablet.dr, 40 MG PO DAILY, TAB 08/23/16 Furosemide* (Furosemide*) 40 Mg Tablet, 40 MG PO DAILY, TAB 08/23/16 Fenofibrate Nanocrystallized* (Fenofibrate*) 145 Mg Tablet, 145 MG PO DAILY, TAB 08/23/16 Zolpidem Tartrate* (Zolpidem Tartrate*) 10 Mg Tablet, 10 MG PO QHS Y for INSOMNIA, #30 TAB 08/23/16 Spironolactone* (Spironolactone*) 100 Mg Tablet, 100 MG PO QAM, TAB 08/23/16 Discontinued Scripts Sodium Polystyrene Sulfonate* (Kayexalate*) 15 Gm/60 Ml Susp, 30 GM PO DAILY for 3 Days, ML Prov:GALINDO BAILEY DO 10/27/16 Allergies Allergies: Coded Allergies: No Known Drug Allergy (Verified Allergy, Unknown, 11/17/16) PMhx/Soc History of Surgery: No Anesthesia Reaction: No Hx Neurological Disorder: No Hx Respiratory Disorders: No Hx Cardiac Disorders: No Hx Psychiatric Problems: No Hx Miscellaneous Medical Probl: Yes (liver disease/failure ) Hx Alcohol Use: Yes (Used too ) Hx Substance Use: No Hx Tobacco Use: Yes (Used to ) Smoking Status: Current some day smoker FmHx Noncontributory for chief complaint with supportive son at bedside Physical Exam Vitals Vital Signs Date Time Temp Pulse Resp B/P Pulse Ox O2 Delivery O2 Flow Rate FiO2 11/17/16 09:18 97.8 98 18 101/68 100 Physical Exam GENERAL: Chronically ill appearing male in no acute distress HEENT: Pupils equal, round, and reactive to light. EOMI. There is no scleral icterus. NECK: C-spine is soft and supple, there is no meningismus. There is no cervical lymphadenopathy. LUNGS: Clear to auscultation bilaterally. There are no rales, wheezes or rhonchi. HEART: Regular rate and rhythm, no murmurs, clicks, rubs or gallops. ABDOMEN: Soft, distended with a fluid wave. No tenderness to palpation with no evidence of peritonitis. EXTREMITIES: There is no peripheral cyanosis or edema. No focal swelling or erythema. NEURO: The patient moves all four extremities with 5/5 strength. Cranial nerves II - XII are intact. Normal gait. Alert and oriented SKIN: There is no apparent rash or petechiae. HEME/LYMPHATIC: There is no evidence of excessive bruising or lymphedema. PSYCHIATRIC: The patient does not appear anxious or depressed. Result Diagram: 11/17/16 0953 11/17/16 0953 Results 24 hrs Laboratory Tests Test 11/17/16 04:53 11/17/16 09:53 INR International Normalized Ratio 1.11 Prothrombin Time 14.3Sec Prothrombin Time Ratio 1.1 Ammonia 54umol/l Anion Gap 12 Basophils # 0.010^3/ul Basophils % 0.8% Blood Morphology Comment Blood Urea Nitrogen 24mg/dl Calcium Level 8.9mg/dl Carbon Dioxide Level 22mmol/L Chloride Level 97mmol/L Creatinine 0.67mg/dl Eosinophils # 0.110^3/ul Eosinophils % 2.4% Glucose Level 166mg/dl Hematocrit 37.6% Hemoglobin 12.8g/dl Lymphocytes # 0.610^3/ul Lymphocytes % 11.3% Mean Corpuscular Hemoglobin 30.3pg Mean Corpuscular Hemoglobin Concent 34.1g/dl Mean Corpuscular Volume 89.0fl Mean Platelet Volume 10.1fl Monocytes # 0.710^3/ul Monocytes % 14.7% Neutrophils # 3.610^3/ul Neutrophils % 70.8% Nucleated Red Blood Cells # 0.010^3/ul Nucleated Red Blood Cells % 0.0/100WBC Platelet Count 17990^3/UL Potassium Level 5.3mmol/L Red Blood Count 4.2210^6/ul Red Cell Distribution Width 16.5% Sodium Level 126mmol/L White Blood Count 5.110^3/ul Current Medications Medications (Trade) Dose Ordered Sig/Lisa Route PRN Reason Start Time Stop Time Status Last Admin Dose Admin Lidocaine (Xylocaine 1% (Mpf)) 5 ml STK-MED ONCE .ROUTE 11/17/16 12:37 11/17/16 12:38 DC Procedures/MDM Patient was taken to a room, seen and evaluated. Comfort measures were initiated. Diagnostic tests were ordered and reviewed. RADIOLOGY: reviewed with the radiologist REEVALUATION: After his therapeutic paracentesis, his abdominal symptoms improved significantly MEDICAL DECISION MAKIN-year-old male presents to the emergency department for recurrent paracentesis. At this time, patient shows no evidence of SBP or other high-risk symptoms. He does not appear to be cephalopathic. After his therapeutic paracentesis, he is feeling much better and seems to be appropriate for outpatient care. Departure Diagnosis: Primary Impression: Ascites Condition: Stable Patient Instructions: Ascites Additional Instructions: See your doctor for follow-up as discussed. Take a copy of your test results, if appropriate, to this follow-up visit. See your doctor or return here if your symptoms do not improve as expected. At any time, please return to the emergency department for any change or worsening in her symptoms. SHAWN SANCHEZ Nov 17, 2016 12:56
[2016-11-17 13:06] VITALS: BP 99/61; PULSE 96; RESP 14; TEMP 97.6
== END 2016-11-17 13:06 | disposition home or self-care (01) ==
LOC: E/R 09:13
DX: R18.8 Other ascites (principal); E11.9 Type 2 diabetes mellitus without complications; F17.210 Nicotine dependence, cigarettes, uncomplicated; Z79.4 Long term (current) use of insulin; Z79.84 Long term (current) use of oral hypoglycemic drugs
CPT/HCPCS: 80048; 82140; 85025; 85610; Z7502; Z7610; 88104; 88305

== ENCOUNTER 2016-11-19 09:01 | Emergency (ER) | payer OTHER ==
[~2016-11-19] VITALS: Wt 73.0 kg
[2016-11-19] MEDS ORDERED: ONDANSETRON (ODT) 4 MG TAB ODT STA (12:02)
[2016-11-19 12:57] LABS: BASOPHILS % 0.4 % (0.0-2.0); EOSINOPHILS # 0.1 10^3/ul (0.0-0.5); EOSINOPHILS % 1.7 % (0.0-7.0); HEMATOCRIT 34.5 % (42.0-52.0); HEMOGLOBIN 11.7 g/dl (14.0-18.0); LYMPHOCYTES # 0.7 10^3/ul (0.8-2.9); LYMPHOCYTES % 10.5 % (15.0-51.0); MEAN CORPUSCULAR HEMOGLOBIN 30.4 pg (29.0-33.0); MEAN CORPUSCULAR VOLUME 89.5 fl (82.0-101.0); MEAN PLATELET VOLUME 10.4 fl (7.4-10.4); MONOCYTE # 1.1 10^3/ul (0.3-0.9); MONOCYTES % 16.2 % (0.0-11.0); NEUTROPHILS % 71.2 % (39.0-77.0); PLATELET COUNT 167 10^3/UL (140-440); RED BLOOD COUNT 3.86 10^6/ul (4.70-6.10); RED CELL DISTRIBUTION WIDTH 16.1 % (11.5-14.5)
[2016-11-19 13:04] LABS: CONDITION 1; LH ANALYZER COMMENTS 1
[2016-11-19 13:05] LABS: ALBUMIN 2.4 g/dl (3.3-4.9); CHLORIDE 97 mmol/L (97-110); INR 1.13; POTASSIUM 5.3 mmol/L (3.5-5.1); PROTIME 14.5 Sec (12.2-14.2); PT RATIO 1.1; SODIUM 123 mmol/L (135-144)
[2016-11-19 13:06] LABS: PARTIAL THROMBOPLASTIN TIME 35.8 Sec (25.0-35.0)
[2016-11-19 13:07] LABS: CREATININE 0.66 mg/dl (0.61-1.24)
[2016-11-19 13:08] LABS: ALANINE AMINOTRANSFERASE 67 IU/L (13-69); ALBUMIN/GLOBULIN RATIO 0.61; ALKALINE PHOSPHATASE 236 IU/L (42-121); ANION GAP 12 (8-16); ASPARTATE AMINO TRANSFERASE 82 IU/L (15-46); BILIRUBIN,INDIRECT 0.4 mg/dl (0-1.1); BILIRUBIN,TOTAL 0.4 mg/dl (0.2-1.3); BLOOD UREA NITROGEN 20 mg/dl (7-20); CALCIUM 8.3 mg/dl (8.4-10.2); CARBON DIOXIDE 19 mmol/L (21-31); GLUCOSE 297 mg/dl (70-220); TOTAL PROTEIN 6.3 g/dl (6.1-8.1)
[2016-11-19 13:26] LABS: TROPONIN-I < 0.012 ng/ml (0.00-0.12)
[2016-11-19] MEDS ORDERED: LIDOCAINE 1% (MPF) 5 ML VIAL ONE (13:37)
--- NOTE | 2016-11-19 14:32 | RADRPT ---
PROCEDURE: Ultrasound guided paracentesis CLINICAL INDICATION: Ascites TECHNIQUE: The risks benefits and alternatives of the procedure were explained to the patient. In formed written consent was obtained. A time out was performed. The patient understood the risks be nefits and alternatives and wished to proceed with the procedure. COMPARISON: None available FINDINGS: A time out was performed. The overlying skin of the right lower quadrant of the abdomen was prepped and draped in the usual sterile fashion. Approximately 10 cc of lidocaine was injected locally for pain control. Utilizing ultrasound guidance, a 6-Lao paracentesis catheter was placed into the peritoneal cavity without difficulty. The patient tolerated the procedure well without complication . Approximately 7550 cc of clear yellow fluid was obtained. The fluid was not sent to the lab for further analysis. IMPRESSION: 1. Successful ultrasound-guided paracentesis. RPTAT: QQ .Aram Gutierrez MD, Date Time Electronically viewed and signed by .Aram Gutierrez MD, on 11/19/2016 14:31 .R/
[2016-11-19] MEDS ORDERED: ZOLP5TAB PO (14:39)
[2016-11-19] MEDS ORDERED: ONDA4TAB14 PO (14:39)
--- NOTE | 2016-11-19 14:45 | ERD ---
ER Documentation Chief Complaint Date/Time DATE: 11/19/16 TIME: 14:43 Chief Complaint abdominal pain and distention for a few days. needs paracenthesis HPI This is a 56-year-old male with a history of liver failure who is well known to this ER for repetitive visits for paracentesis. Patient states that he needs to have his fluid drained from his abdomen is getting too large and starting to get tense and painful. He has no shortness of breath no abdominal pain, he said he had one episode of nausea vomiting yesterday but he says that he has nausea vomiting frequently and this is not anything new. No chest pain shortness of breath. No diarrhea. No fever cough. ROS All systems reviewed and are negative except as per history of present illness. Medications Home Meds Active Scripts Ondansetron (Ondansetron Odt) 4 Mg Tab.rapdis, 4 MG PO Q6H Y for NAUSEA AND/OR VOMITING, #10 TAB Prov:ANDRIY GARCIA DO 11/19/16 Zolpidem Tartrate* (Ambien*) 5 Mg Tablet, 5 MG PO HS Y for INSOMNIA, #15 TAB Prov:ANDRIY GARCIA DO 11/19/16 Insulin Aspart* (Novolog Insulin Pen*) 100 Unit/Ml Soln, 10 UNIT SC WITH MEALS BEDTIME for 28 Days Prov:JERZY BENSON MD 08/27/16 Reported Medications Dapagliflozin Propanediol (Farxiga) 10 Mg Tablet, 10 MG PO DAILY, #30 TAB 08/23/16 Insulin Glargine* (Lantus*) 100 Unit/Ml Soln, 35 UNIT SC QHS, #1 VIAL 08/23/16 Losartan Potassium* (Cozaar*) 25 Mg Tablet, 25 MG PO DAILY, #30 TAB 08/23/16 Pantoprazole* (Protonix*) 40 Mg Tablet.dr, 40 MG PO DAILY, TAB 08/23/16 Furosemide* (Furosemide*) 40 Mg Tablet, 40 MG PO DAILY, TAB 08/23/16 Fenofibrate Nanocrystallized* (Fenofibrate*) 145 Mg Tablet, 145 MG PO DAILY, TAB 08/23/16 Zolpidem Tartrate* (Zolpidem Tartrate*) 10 Mg Tablet, 10 MG PO QHS Y for INSOMNIA, #30 TAB 08/23/16 Spironolactone* (Spironolactone*) 100 Mg Tablet, 100 MG PO QAM, TAB 08/23/16 Discontinued Scripts Sodium Polystyrene Sulfonate* (Kayexalate*) 15 Gm/60 Ml Susp, 30 GM PO DAILY for 3 Days, ML Prov:GALINDO BAILEY DO 10/27/16 Allergies Allergies: Coded Allergies: No Known Drug Allergy (Verified Allergy, Unknown, 11/17/16) PMhx/Soc History of Surgery: No Anesthesia Reaction: No Hx Neurological Disorder: No Hx Respiratory Disorders: No Hx Cardiac Disorders: No Hx Psychiatric Problems: No Hx Miscellaneous Medical Probl: Yes (liver disease/failure ) Hx Alcohol Use: Yes (Used too ) Hx Substance Use: No Hx Tobacco Use: Yes (Used to ) Smoking Status: Never smoker FmHx Family History: No coronary disease Physical Exam Vitals Vital Signs Date Time Temp Pulse Resp B/P Pulse Ox O2 Delivery O2 Flow Rate FiO2 11/19/16 09:04 97.5 100 21 95/64 97 Physical Exam Const: Well-developed, well-nourished Head: Atraumatic, normocephalic Eyes: Normal Conjunctiva, PERRLA, EOMI, normal sclera, no nystagmus ENT: Normal External Ears, Nose and Mouth, moist mucus membranes. Neck: Full range of motion. No meningismus, no lymphadenopathy. Resp: Clear to auscultation bilaterally, no wheezing, rhonchi, rales Cardio: Regular rate and rhythm, no murmurs, S1 S2 present Abd: Soft, non tender x 4, distended abdomen with ascites normal bowel sounds, no guarding or rebound, no pulsitile abdominal masses or bruits Skin: No petechiae or rashes, no ecchymosis , no maculopapular rash Back: No midline or flank tenderness Ext: No cyanosis, or edema, FROM x 4, normal inspection, neurovascularly intact x 4 Neur: Awake and alert, STR 5/5 x 4, sensation intact x 4, no focal findings, cerebellum intact Psych: Normal Mood and Affect Result Diagram: 11/19/16 1225 11/19/16 1225 Results 24 hrs Laboratory Tests Test 11/19/16 12:25 Activated Partial Thromboplast Time 35.8Sec Alanine Aminotransferase (ALT/SGPT) 67IU/L Albumin 2.4g/dl Albumin/Globulin Ratio 0.61 Alkaline Phosphatase 236IU/L Anion Gap 12 Aspartate Amino Transf (AST/SGOT) 82IU/L Basophils # 0.010^3/ul Basophils % 0.4% Blood Morphology Comment Blood Urea Nitrogen 20mg/dl Calcium Level 8.3mg/dl Carbon Dioxide Level 19mmol/L Chloride Level 97mmol/L Creatinine 0.66mg/dl Direct Bilirubin 0.00mg/dl Eosinophils # 0.110^3/ul Eosinophils % 1.7% Globulin 3.90g/dl Glucose Level 297mg/dl Hematocrit 34.5% Hemoglobin 11.7g/dl INR International Normalized Ratio 1.13 Indirect Bilirubin 0.4mg/dl Lipase 235U/L Lymphocytes # 0.710^3/ul Lymphocytes % 10.5% Mean Corpuscular Hemoglobin 30.4pg Mean Corpuscular Hemoglobin Concent 34.0g/dl Mean Corpuscular Volume 89.5fl Mean Platelet Volume 10.4fl Monocytes # 1.110^3/ul Monocytes % 16.2% Neutrophils # 5.010^3/ul Neutrophils % 71.2% Nucleated Red Blood Cells # 0.010^3/ul Nucleated Red Blood Cells % 0.0/100WBC Platelet Count 60126^3/UL Potassium Level 5.3mmol/L Prothrombin Time 14.5Sec Prothrombin Time Ratio 1.1 Red Blood Count 3.8610^6/ul Red Cell Distribution Width 16.1% Sodium Level 123mmol/L Total Bilirubin 0.4mg/dl Total Protein 6.3g/dl Troponin I < 0.012ng/ml White Blood Count 7.010^3/ul Current Medications Medications (Trade) Dose Ordered Sig/Lisa Route PRN Reason Start Time Stop Time Status Last Admin Dose Admin Ondansetron HCl (Zofran Odt) 4 mg ONCE STAT ODT 11/19/16 12:02 11/19/16 12:03 DC 11/19/16 12:24 Lidocaine (Xylocaine 1% (Mpf)) 5 ml STK-MED ONCE .ROUTE 11/19/16 13:37 11/19/16 13:38 DC Procedures/MDM PROCEDURE: Ultrasound guided paracentesis CLINICAL INDICATION: Ascites TECHNIQUE: The risks benefits and alternatives of the procedure were explained to the patient. Informed written consent was obtained. A time out was performed. The patient understood the risks benefits and alternatives and wished to proceed with the procedure. COMPARISON: None available FINDINGS: A time out was performed. The overlying skin of the right lower quadrant of the abdomen was prepped and draped in the usual sterile fashion. Approximately 10 cc of lidocaine was injected locally for pain control. Utilizing ultrasound guidance, a 6-[place] African paracentesis catheter was placed into the peritoneal cavity without difficulty. The patient tolerated the procedure well without complication. Approximately 7550 cc of clear yellow fluid was obtained. The fluid was not sent to the lab for further analysis. IMPRESSION: 1. Successful ultrasound-guided paracentesis. RPTAT: QQ .Aram Gutierrez MD, MD Date Time Electronically viewed and signed by .Aram Gutierrez MD, on 11/19/2016 14: 31 .R/ CC: ANDRIY GARCIA DO Patient is asking for some sleep aid is having some insomnia lately. He has successful paracentesis and says he is feeling much better Departure Diagnosis: Primary Impression: Ascites Ascites type: other type Qualified Code: R18.8 - Other ascites Additional Impression: Insomnia Insomnia type: other insomnia Qualified Code: G47.09 - Other insomnia Condition: Stable Patient Instructions: Treating Insomnia, Ascites ANDRIY GARCIA DO Nov 19, 2016 14:45
[2016-11-19 14:55] VITALS: BP 86/54; PULSE 95; RESP 20; TEMP 97.5
== END 2016-11-19 14:56 | disposition home or self-care (01) ==
LOC: E/R 09:01
DX: R18.8 Other ascites (principal); G47.09 Other insomnia; R11.2 Nausea with vomiting, unspecified; E11.9 Type 2 diabetes mellitus without complications; R10.9 Unspecified abdominal pain; Z79.4 Long term (current) use of insulin; Z79.84 Long term (current) use of oral hypoglycemic drugs
CPT/HCPCS: 80053; 83690; 84484; 85025; 85610; 85730; Z7502; Z7610

== ENCOUNTER 2016-11-21 09:18 | Emergency (ER) | payer OTHER ==
[~2016-11-21] VITALS: Ht 167.6 cm; Wt 77.5 kg
[~2016-11-21 09:18] MED LIST changes: +ONDA4TAB14 PO; +ZOLP5TAB PO
[2016-11-21 09:24] VITALS: Ht 167.6 cm; Wt 77.5 kg
[2016-11-21] MEDS ORDERED: LIDOCAINE 1% (MPF) 5 ML VIAL ONE (12:28)
--- NOTE | 2016-11-21 13:06 | RADRPT ---
PROCEDURE: Ultrasound guided paracentesis CLINICAL INDICATION: Ascites TECHNIQUE: The risks benefits and alternatives of the procedure were explained to the patient. In formed written consent was obtained. A time out was performed. The patient understood the risks be nefits and alternatives and wished to proceed with the procedure. COMPARISON: 11/19/2016 FINDINGS: A time out was performed. The overlying skin of the right lower quadrant of the abdomen was prepped and draped in the usual sterile fashion. Approximately 10 cc of lidocaine was injected locally for pain control. Utilizing ultrasound guidance, a 6-Cameroonian paracentesis catheter was placed into the peritoneal cavity without difficulty. The patient tolerated the procedure well without complication . Approximately 6000 cc of clear yellow fluid was obtained. The fluid was not sent to the lab for further analysis. IMPRESSION: 1. Successful ultrasound-guided paracentesis. RPTAT: QQ .Aram Gutierrez MD, MD Date Time Electronically viewed and signed by .Aram Gutierrez MD, on 11/21/2016 13:06 .R/
--- NOTE | 2016-11-21 14:30 | ERD ---
ER Documentation Chief Complaint Date/Time DATE: 11/21/16 TIME: 14:28 Chief Complaint Complains of abdominal pain Hx of Ascites HPI Patient is a 56-year-old male with cirrhosis and ascites as well as diabetes who presents for a paracentesis. He had a paracentesis done 2 days ago and his abdomen is filled with fluid. He is well-known to our staff for multiple visits for paracentesis. He has had no fevers. He forgot to take his insulin yesterday and wants to have his sugar checked as well. ROS All systems reviewed and are negative except as per history of present illness. Medications Home Meds Active Scripts Ondansetron (Ondansetron Odt) 4 Mg Tab.rapdis, 4 MG PO Q6H Y for NAUSEA AND/OR VOMITING, #10 TAB Prov:ANDRIY GARCIA DO 11/19/16 Insulin Aspart* (Novolog Insulin Pen*) 100 Unit/Ml Soln, 10 UNIT SC WITH MEALS BEDTIME for 28 Days Prov:JERZY BENSON MD 08/27/16 Reported Medications Dapagliflozin Propanediol (Farxiga) 10 Mg Tablet, 10 MG PO DAILY, #30 TAB 08/23/16 Insulin Glargine* (Lantus*) 100 Unit/Ml Soln, 35 UNIT SC QHS, #1 VIAL 08/23/16 Losartan Potassium* (Cozaar*) 25 Mg Tablet, 25 MG PO DAILY, #30 TAB 08/23/16 Pantoprazole* (Protonix*) 40 Mg Tablet.dr, 40 MG PO DAILY, TAB 08/23/16 Furosemide* (Furosemide*) 40 Mg Tablet, 40 MG PO DAILY, TAB 08/23/16 Fenofibrate Nanocrystallized* (Fenofibrate*) 145 Mg Tablet, 145 MG PO DAILY, TAB 08/23/16 Zolpidem Tartrate* (Zolpidem Tartrate*) 10 Mg Tablet, 10 MG PO QHS Y for INSOMNIA, #30 TAB 08/23/16 Spironolactone* (Spironolactone*) 100 Mg Tablet, 100 MG PO QAM, TAB 08/23/16 Discontinued Scripts Zolpidem Tartrate* (Ambien*) 5 Mg Tablet, 5 MG PO HS Y for INSOMNIA, #15 TAB Prov:ANDRIY GARCIA DO 11/19/16 Sodium Polystyrene Sulfonate* (Kayexalate*) 15 Gm/60 Ml Susp, 30 GM PO DAILY for 3 Days, ML Prov:GALINDO BAILEY DO 10/27/16 Allergies Allergies: Coded Allergies: No Known Drug Allergy (Verified Allergy, Unknown, 11/21/16) PMhx/Soc Medical and Surgical Hx: pt denies Medical Hx, pt denies Surgical Hx History of Surgery: No Anesthesia Reaction: No Hx Neurological Disorder: No Hx Respiratory Disorders: No Hx Cardiac Disorders: No Hx Psychiatric Problems: No Hx Miscellaneous Medical Probl: Yes (liver disease/failure ) Hx Alcohol Use: Yes (Used too ) Hx Substance Use: No Hx Tobacco Use: Yes (Used to ) Smoking Status: Never smoker FmHx Family History: diabetes Physical Exam Vitals Vital Signs Date Time Temp Pulse Resp B/P Pulse Ox O2 Delivery O2 Flow Rate FiO2 11/21/16 09:24 98.3 93 20 110/68 99 Physical Exam Const: No acute distress Head: Atraumatic Eyes: Normal Conjunctiva ENT: Normal External Ears, Nose and Mouth. Neck: Full range of motion..~ No meningismus. Resp: Clear to auscultation bilaterally Cardio: Regular rate and rhythm, no murmurs Abd: Distended abdomen with positive fluid wave Skin: No petechiae or rashes Back: No midline or flank tenderness Ext: No cyanosis, or edema Neur: Awake and alert Psych: Normal Mood and Affect Results 24 hrs Laboratory Tests Test 11/21/16 09:48 Bedside Glucose 277mg/dL Current Medications Medications (Trade) Dose Ordered Sig/Lisa Route PRN Reason Start Time Stop Time Status Last Admin Dose Admin Lidocaine (Xylocaine 1% (Mpf)) 5 ml STK-MED ONCE .ROUTE 11/21/16 12:28 11/21/16 12:29 DC 11/21/16 12:38 Procedures/MDM Ultrasound-guided paracentesis done by radiology. Patient is a 56-year-old male who presents with acute ascites. The patient had a paracentesis performed. At this point I doubt spontaneous bacterial peritonitis. I doubt diabetic ketoacidosis. I doubt appendicitis, cholecystitis, pink otitis, or bowel obstruction. I believe outpatient management is appropriate. The patient can return for any worsening symptoms. Departure Diagnosis: Primary Impression: Ascites Ascites type: other type Qualified Code: R18.8 - Other ascites Additional Impression: Abdominal pain Abdominal location: unspecified location Qualified Code: R10.9 - Abdominal pain, unspecified location Condition: Fair Patient Instructions: Abdominal Pain, Ascites Additional Instructions: Call your primary care doctor TOMORROW for an appointment during the next 1-2 days.See the doctor sooner or return here if your condition worsens before your appointment time. ALESIA CLAROS MD Nov 21, 2016 14:29
[2016-11-21 14:35] VITALS: BP 107/62; PULSE 88; RESP 18; TEMP 98.3
== END 2016-11-21 14:35 | disposition home or self-care (01) ==
LOC: E/R 09:18
DX: R18.8 Other ascites (principal); E11.9 Type 2 diabetes mellitus without complications; Z79.4 Long term (current) use of insulin; Z79.84 Long term (current) use of oral hypoglycemic drugs; Z87.891 Personal history of nicotine dependence
CPT/HCPCS: 82962; Z7502; Z7610

== ENCOUNTER 2016-11-22 00:36 | Inpatient (IN) | payer OTHER ==
[~2016-11-22] VITALS: Ht 160 cm; Wt 72.7 kg
[~2016-11-22 00:36] MED LIST changes: -ZOLP5TAB PO
[2016-11-22 01:07] LABS: ADD SCAN DIFF NO
[2016-11-22 01:15] LABS: BASOPHILS % 0.7 % (0.0-2.0); EOSINOPHILS # 0.1 10^3/ul (0.0-0.5); EOSINOPHILS % 1.3 % (0.0-7.0); HEMATOCRIT 35.3 % (42.0-52.0); HEMOGLOBIN 12.3 g/dl (14.0-18.0); LYMPHOCYTES # 0.6 10^3/ul (0.8-2.9); LYMPHOCYTES % 10.1 % (15.0-51.0); MEAN CORPUSCULAR HEMOGLOBIN 30.1 pg (29.0-33.0); MEAN CORPUSCULAR HGB CONC 34.8 g/dl (32.0-37.0); MEAN CORPUSCULAR VOLUME 86.5 fl (82.0-101.0); MEAN PLATELET VOLUME 11.6 fl (7.4-10.4); NEUTROPHIL # 4.3 10^3/ul (1.6-7.5); NEUTROPHILS % 70.4 % (39.0-77.0); PLATELET COUNT 132 10^3/UL (140-415); RED BLOOD COUNT 4.08 10^6/ul (4.70-6.10); RED CELL DISTRIBUTION WIDTH 15.5 % (11.5-14.5); WHITE BLOOD COUNT 6.1 10^3/ul (4.8-10.8)
[2016-11-22] MEDS ORDERED: morphine 4 MG/ML VIAL IV STA (01:19)
[2016-11-22 01:37] LABS: INR 1.1; PROTIME 14.2 Sec (12.2-14.2); PT RATIO 1.1
[2016-11-22 01:38] LABS: PARTIAL THROMBOPLASTIN TIME 33.4 Sec (25.0-35.0)
[2016-11-22] MEDS ORDERED: FENTAnyl 50 MCG/ML VIAL IV ONE ×2 (02:00→04:00)
[2016-11-22 02:04] LABS: ALBUMIN 2.4 g/dl (3.3-4.9); ALBUMIN/GLOBULIN RATIO 0.6
[2016-11-22 02:05] LABS: POTASSIUM 4.7 mmol/L (3.5-5.1)
[2016-11-22 02:07] LABS: BILIRUBIN,INDIRECT 0.3 mg/dl (0-1.1); BILIRUBIN,TOTAL 0.3 mg/dl (0.2-1.3); CREATININE 0.66 mg/dl (0.61-1.24)
[2016-11-22 02:08] LABS: CALCIUM 8.5 mg/dl (8.4-10.2); TOTAL PROTEIN 6.4 g/dl (6.1-8.1)
[2016-11-22] MEDS ORDERED: CEFTRIAXONE 1 GM/50 ML (PMX) 50 ML IVPB STA (02:17)
[2016-11-22] MEDS ORDERED: ONDANSETRON 4 MG INJ IV PRN (03:30)
--- NOTE | 2016-11-22 03:46 | RADRPT ---
PROCEDURE: CT abdomen and pelvis without intravenous contrast. CLINICAL INDICATION: Pain. TECHNIQUE: CT of the abdomen/pelvis was performed utilizing axial images with reconstructions in s agittal and coronal planes. The administered radiation dose is CTDI 14.3 mGy, DLP 838.2 mGy-cm. COMPARISON: No pertinent prior examinations were submitted for comparison. FINDINGS: Visualized Chest: Mild atelectasis within the lung bases. Coronary artery calcifications are noted. There is trace pericardial effusion. There is mild cardiomegaly. Abdomen: The liver is small with diffusely nodular contours, compatible with cirrhosis. There is moderate sp lenomegaly. Extensive upper abdominal varices are present. There is moderate intra-abdominal ascit es. There is diffuse dilatation of the pancreatic duct with coarse pancreatic calcifications compatible with chronic pancreatitis. Stones are noted within a contracted gallbladder. The adrenal glands are unremarkable. The kidneys are without hydronephrosis. No definite urinary calculi are seen. Small right renal cys ts are noted. There is no evidence of bowel obstruction. The appendix is normal. No intra-abdominal free air is seen. There is no evidence of intra-abdominal adenopathy or free fluid. Pelvis: There is ascites within the pelvis. The urinary bladder and prostate are unremarkable. There is a small, fat-containing right inguinal hernia. Osseous structures: Unremarkable. IMPRESSION: Cirrhotic liver with associated moderate splenomegaly and upper abdominal varices as well as intra-a bdominal ascites. Cholelithiasis. Chronic pancreatitis. RPTAT: HIKT .Jefferson Stephens MD, MD Date Time Electronically viewed and signed by .Jefferson Stephens MD, MD on 11/22/2016 03:46 .T/
--- NOTE | 2016-11-22 05:32 | ERA ---
ER Documentation Chief Complaint Date/Time DATE: 11/22/16 TIME: 05:22 Chief Complaint abd pain,hx liver cirrhosis,just had paracentesis prior to coming in HPI 56-year-old male with a history of end-stage liver disease presenting for abdominal pain. He has a history of chronic abdominal pain and frequently needs to have paracenteses done, now about every 2 days. She was here in the ER earlier this morning and had a paracentesis done. He went home and felt better. However after some time, his abdomen started to swell again and he started to feel diffuse pain in his abdomen. He describes as a pressure-like pain. No associated fevers or chills. Per his , lately he has been vomiting more than usual and his stools have been looser than usual. He has not been taking his lactulose for several days secondary to diarrhea. He denies chest pain or shortness of breath. ROS All systems reviewed and are negative except as per history of present illness. Medications Home Meds Active Scripts Ondansetron (Ondansetron Odt) 4 Mg Tab.rapdis, 4 MG PO Q6H Y for NAUSEA AND/OR VOMITING, #10 TAB Prov:ANDRIY GARCIA DO 11/19/16 Insulin Aspart* (Novolog Insulin Pen*) 100 Unit/Ml Soln, 10 UNIT SC WITH MEALS BEDTIME for 28 Days Prov:JERZY BENSON MD 08/27/16 Reported Medications Dapagliflozin Propanediol (Farxiga) 10 Mg Tablet, 10 MG PO DAILY, #30 TAB 08/23/16 Insulin Glargine* (Lantus*) 100 Unit/Ml Soln, 35 UNIT SC QHS, #1 VIAL 08/23/16 Losartan Potassium* (Cozaar*) 25 Mg Tablet, 25 MG PO DAILY, #30 TAB 08/23/16 Pantoprazole* (Protonix*) 40 Mg Tablet.dr, 40 MG PO DAILY, TAB 08/23/16 Furosemide* (Furosemide*) 40 Mg Tablet, 40 MG PO DAILY, TAB 08/23/16 Fenofibrate Nanocrystallized* (Fenofibrate*) 145 Mg Tablet, 145 MG PO DAILY, TAB 08/23/16 Zolpidem Tartrate* (Zolpidem Tartrate*) 10 Mg Tablet, 10 MG PO QHS Y for INSOMNIA, #30 TAB 08/23/16 Spironolactone* (Spironolactone*) 100 Mg Tablet, 100 MG PO QAM, TAB 08/23/16 Discontinued Scripts Zolpidem Tartrate* (Ambien*) 5 Mg Tablet, 5 MG PO HS Y for INSOMNIA, #15 TAB Prov:ANDRIY GARCIA DO 11/19/16 Allergies Allergies: Coded Allergies: No Known Drug Allergy (Verified Allergy, Unknown, 11/21/16) PMhx/Soc History of Surgery: No Anesthesia Reaction: No Hx Neurological Disorder: No Hx Respiratory Disorders: No Hx Cardiac Disorders: No Hx Psychiatric Problems: No Hx Miscellaneous Medical Probl: Yes (liver disease/failure, paracentesis) Hx Alcohol Use: Yes (Used too ) Hx Substance Use: No Hx Tobacco Use: Yes (Used to ) Smoking Status: Former smoker FmHx Family History: No diabetes Physical Exam Vitals Vital Signs Date Time Temp Pulse Resp B/P Pulse Ox O2 Delivery O2 Flow Rate FiO2 11/22/16 04:07 98 18 87/64 97 Room Air 11/22/16 00:38 98.2 102 17 97/70 97 Physical Exam Const: Nontoxic, mild distress Head: Atraumatic Eyes: Normal Conjunctiva ENT: Normal External Ears, Nose and Mouth. Neck: Full range of motion.No meningismus. Resp: Clear to auscultation bilaterally, breath sounds diminished at bases Cardio: Regular rate and rhythm, no murmurs Abd: Soft, distended, ascites present, minimal diffuse tenderness, no bleeding from site of paracentesis. No rebound or guarding. Normal bowel sounds Skin: No petechiae or rashes Back: No midline or flank tenderness Ext: No cyanosis, 2+ pitting edema bilaterally. 2+ distal pulses. Neur: Awake and alert and oriented 3, face symmetric, moving all extremity Psych: Depressed mood and flat affect Result Diagram: 11/22/165311/22/164 Results 24 hrs Laboratory Tests Test 11/22/16 00:54 Activated Partial Thromboplast Time 33.4Sec Alanine Aminotransferase (ALT/SGPT) 68IU/L Albumin 2.4g/dl Albumin/Globulin Ratio 0.60 Alkaline Phosphatase 236IU/L Anion Gap 16 Aspartate Amino Transf (AST/SGOT) 90IU/L Basophils # 0.010^3/ul Basophils % 0.7% Blood Urea Nitrogen 23mg/dl Calcium Level 8.5mg/dl Carbon Dioxide Level 14mmol/L Chloride Level 99mmol/L Creatinine 0.66mg/dl Direct Bilirubin 0.00mg/dl Eosinophils # 0.110^3/ul Eosinophils % 1.3% Globulin 4.00g/dl Glucose Level 224mg/dl Hematocrit 35.3% Hemoglobin 12.3g/dl INR International Normalized Ratio 1.10 Indirect Bilirubin 0.3mg/dl Lymphocytes # 0.610^3/ul Lymphocytes % 10.1% Mean Corpuscular Hemoglobin 30.1pg Mean Corpuscular Hemoglobin Concent 34.8g/dl Mean Corpuscular Volume 86.5fl Mean Platelet Volume 11.6fl Monocytes # 1.010^3/ul Monocytes % 17.0% Neutrophils # 4.310^3/ul Neutrophils % 70.4% Nucleated Red Blood Cells # 0.010^3/ul Nucleated Red Blood Cells % 0.0/100WBC Platelet Count 28940^3/UL Potassium Level 4.7mmol/L Prothrombin Time 14.2Sec Prothrombin Time Ratio 1.1 Red Blood Count 4.0810^6/ul Red Cell Distribution Width 15.5% Sodium Level 124mmol/L Total Bilirubin 0.3mg/dl Total Protein 6.4g/dl White Blood Count 6.110^3/ul Current Medications Medications (Trade) Dose Ordered Sig/Lisa Route PRN Reason Start Time Stop Time Status Last Admin Dose Admin Morphine Sulfate (morphine) 4 mg ONCE STAT IV 11/22/16 01:19 11/22/16 01:20 DC Fentanyl 25 mcg 25 mcg ONCE ONCE IV 11/22/16 02:00 11/22/16 02:01 DC 11/22/16 01:40 Ceftriaxone Sodium (Rocephin) 50 ml @ 100 mls/hr ONCE STAT IVPB 11/22/16 02:17 11/22/16 02:46 DC 11/22/16 03:43 Ondansetron HCl (Zofran Inj) 4 mg BRIDGE ORDER PRN IV NAUSEA AND/OR VOMITING 11/22/16 03:30 11/23/16 03:29 Fentanyl (Sublimaze) 50 mcg ONCE ONCE IV 11/22/16 04:00 11/22/16 04:01 DC 11/22/16 03:46 Procedures/MDM EKG: Rate/Rhythm: Sinus tachycardia at 103 QRS, ST, T-waves: No changes consistent w/ acute ischemia Impression: No evidence of ischemia or arrhythmia Patient is presenting with acute on chronic abdominal pain. His vitals were notable for mild tachycardia. He has no peritoneal signs on exam. I have a low suspicion for bowel obstruction, spontaneous bacterial peritonitis, or bowel perforation. Labs are notable for hyponatremia, hypoalbuminemia, and hyperglycemia. CT of the abdomen and pelvis was ordered and showed cirrhosis and ascites without any other acute abnormalities. Family states that they do not feel comfortable taking him home as he is declining. He is awaiting a TIPS procedure, but they are awaiting authorization for this. His pain is not well controlled with the [place] he has at home. I spoke with Dr. Benson and he is willing to admit to the hospital. As the patient had a paracentesis today and is presenting with abdominal pain, ceftriaxone was started. I suspect he will need another paracentesis while here. Accepting Care Team: Current data and ongoing care discussed. Time: Time of admission Primary Provider: Lincoln Benson Consulting: none Outstanding Data: none Departure Diagnosis: Primary Impression: Diffuse abdominal pain Additional Impressions: History of ascites History of liver disease Condition: EDENILSON Del Toro MD Nov 22, 2016 05:32
[2016-11-22 05:42] LABS: TROPONIN-I < 0.012 ng/ml (0.00-0.12)
[2016-11-22 05:47] LABS: INR 1.16; PROTIME 14.8 Sec (12.2-14.2); PT RATIO 1.2
[2016-11-22 05:48] LABS: PARTIAL THROMBOPLASTIN TIME 35.4 Sec (25.0-35.0)
[2016-11-22 06:40] VITALS: TEMP 98
[2016-11-22] MEDS ORDERED: morphine 2 MG INJ IV PRN (08:30)
[2016-11-22] MEDS: PANTOPRAZOLE 40 MG INJ IV SCH ×2 (08:52→22:14)
[2016-11-22 10:07] LABS: POTASSIUM 4.6 mmol/L (3.5-5.1)
[2016-11-22 10:10] LABS: CREATININE 0.63 mg/dl (0.61-1.24)
[2016-11-22 10:11] LABS: CALCIUM 8.6 mg/dl (8.4-10.2)
[2016-11-22 13:51] LABS: ADD UMIC YES; URINE BILIRUBIN (Dip) NEGATIVE (NEGATIVE); URINE BLOOD (Dip) NEGATIVE (NEGATIVE); URINE COLOR LT. YELLOW (YELLOW); URINE GLUCOSE (Dip) >=1000 % (NEGATIVE); URINE KETONES (Dip) NEGATIVE (NEGATIVE); URINE LEUKOCYTE ESTERASE (Dip) TRACE (NEGATIVE); URINE NITRITE (Dip) NEGATIVE (NEGATIVE); URINE TOTAL PROTEIN (Dip) NEGATIVE (NEGATIVE); URINE UROBILINOGEN (Dip) 0.2 E.U./dL (0.1-1.0)
[2016-11-22 14:15] LABS: URINE RBCS NONE SEEN /HPF (0)
[2016-11-22 14:30] VITALS: BP 102/59; PULSE 95; RESP 18
[2016-11-22 15:30] VITALS: Ht 160 cm; Wt 72.7 kg
[2016-11-22] MEDS ORDERED: ONDANSETRON (ODT) 4 MG TAB ODT PRN (16:00)
--- NOTE | 2016-11-22 16:09 | QN ---
Documentation Comment [id number] JERZY BENSON MD Nov 22, 2016 16:09
--- NOTE | 2016-11-22 16:43 | HP ---
DATE OF ADMISSION: 11/22/2016 HISTORY OF PRESENT ILLNESS: Marta Barclay is a 56-year-old male with history of cirrhosis of the [place] er, ascites, multiple paracenteses, underwent paracentesis recently, now presents back with abdomina l pain. The patient is noted to have a hematocrit of 35.2 in the past. The patient also has a hist ory of hypertension, diabetes mellitus, end-stage liver disease. Patient has other history includes history of Staphylococcus aureus urinary tract infection. ALLERGY HISTORY: NEGATIVE. FAMILY HISTORY: Negative. SOCIAL HISTORY: Denies. MEDICATION HISTORY: Includes: 1. Farxiga. 2. Fenofibrate. 3. Lasix. 4. Insulin. 5. Losartan. 6. Zofran. 7. Protonix. 8. Aldactone. 9. Ambien. REVIEW OF SYSTEMS HEENT: Unremarkable. RESPIRATORY: Unremarkable. CARDIOVASCULAR: Unremarkable. ABDOMEN: Abdominal pain that started yesterday. EXTREMITIES: Unremarkable. CENTRAL NERVOUS SYSTEM: Unremarkable. PHYSICAL EXAMINATION: GENERAL: The patient is awake, alert. VITAL SIGNS: Pulse 92, blood pressure 99/70. HEAD: Atraumatic, normocephalic. Pupils are equal, reactive. Pale conjunctivae, icterus positive. NECK: Supple, no JVD. LUNGS: Clear. CARDIOVASCULAR: S1, S2 normal. ABDOMEN: Distended. Bowel sounds positive. Ascites appreciated. EXTREMITIES: No cyanosis, clubbing. Trace edema. CENTRAL NERVOUS SYSTEM: The patient is awake, alert, no deficit. LABORATORY DATA: Hematocrit 35.3, platelet count of 132. Sodium 120, potassium 4.6, BUN 24, creati nine 0.63. Patient had a lipase 3934. Ammonia 89, albumin 2.4, hemoglobin 4.0. The patient had a pelvic abdominal CT scan done which shows the patient has a cirrhotic liver with associated moderate splenomegaly, upper abdominal varices noted, cholelithiasis, chronic pancreatitis. IMPRESSION:. The patient has: 1. Abdominal pain. 2. Chronic pancreatitis. 3. Cirrhosis of the liver. 4. Anemia. 5. Hyponatremia. 6. Hepatic encephalopathy. PLAN: To continue home medications, gentle IV fluids, clear liquid diet. Orders were done. Dictated By: JERZY SANTOS/ADRIANNA Conf#: [id number] DID#: [id number]
[2016-11-22] MEDS ORDERED: DEXTROSE 50% 50 ML SYRINGE IV PRN ×2 (17:00)
[2016-11-22] MEDS ORDERED: GLUCOSE GEL 15 GRAM TUBE BUCCAL PRN (17:00)
[2016-11-22] MEDS ORDERED: GLUCAGON 1 MG INJ IM PRN (17:00)
[2016-11-22] MEDS ORDERED: GLUCOSE GEL 15 GRAM TUBE PO PRN ×2 (17:00)
[2016-11-22] MEDS ORDERED: INSULIN ASPART [NOVOLOG] 3 ML PEN SC SCH ×2 (18:00)
[2016-11-22] MEDS: SOD CHLORIDE 0.9% 1,000 ML IV SCH (18:03)
[2016-11-22] MEDS: INSULIN ASPART [NOVOLOG] 3 ML PEN SC SCH ×2 (18:14→22:19)
[2016-11-22 19:31] VITALS: BP 104/67; RESP 18
[2016-11-22] MEDS ORDERED: INSULIN GLARGINE [LANtus] 3 ML PEN SC SCH (21:00)
[2016-11-22] MEDS ORDERED: ZOLPIDEM 5 MG TAB PO PRN (22:30)
[2016-11-23] MEDS: ACCUCHECK XX SCH (02:00)
[2016-11-23] MEDS ORDERED: ACCUCHECK XX SCH (02:00)
[2016-11-23] MEDS: PANTOPRAZOLE (EC) 40 MG TAB PO SCH (05:20)
[2016-11-23] MEDS: FUROSEMIDE 40 MG TAB PO SCH (06:00)
[2016-11-23 06:08] LABS: ADD SCAN DIFF NO; BASOPHIL # 0.1 10^3/ul (0.0-0.1); BASOPHILS % 1.5 % (0.0-2.0); EOSINOPHILS # 0.1 10^3/ul (0.0-0.5); EOSINOPHILS % 2.9 % (0.0-7.0); HEMATOCRIT 33.9 % (42.0-52.0); HEMOGLOBIN 11.6 g/dl (14.0-18.0); LYMPHOCYTES # 0.7 10^3/ul (0.8-2.9); LYMPHOCYTES % 16.2 % (15.0-51.0); MEAN CORPUSCULAR HEMOGLOBIN 29.8 pg (29.0-33.0); MEAN CORPUSCULAR HGB CONC 34.2 g/dl (32.0-37.0); MEAN CORPUSCULAR VOLUME 87.1 fl (82.0-101.0); MEAN PLATELET VOLUME 11.9 fl (7.4-10.4); MONOCYTE # 0.7 10^3/ul (0.3-0.9); MONOCYTES % 17.2 % (0.0-11.0); NEUTROPHIL # 2.5 10^3/ul (1.6-7.5); NEUTROPHILS % 61.7 % (39.0-77.0); PLATELET COUNT 139 10^3/UL (140-415); RED BLOOD COUNT 3.89 10^6/ul (4.70-6.10); RED CELL DISTRIBUTION WIDTH 15.4 % (11.5-14.5); WHITE BLOOD COUNT 4.1 10^3/ul (4.8-10.8)
[2016-11-23] MEDS ORDERED: ALBUMIN HUMAN 25% 200 ML IV ONE (06:30)
[2016-11-23 06:33] LABS: ALBUMIN 2.3 g/dl (3.3-4.9)
[2016-11-23 06:34] LABS: POTASSIUM 4.8 mmol/L (3.5-5.1)
[2016-11-23 06:36] LABS: ALBUMIN/GLOBULIN RATIO 0.63; BILIRUBIN,INDIRECT 0.7 mg/dl (0-1.1); BILIRUBIN,TOTAL 0.7 mg/dl (0.2-1.3); CREATININE 0.53 mg/dl (0.61-1.24); TOTAL PROTEIN 5.9 g/dl (6.1-8.1)
[2016-11-23] MEDS: MIDODRINE 5 MG TAB PO SCH ×4 (06:36→17:56)
[2016-11-23 06:37] LABS: CALCIUM 8.4 mg/dl (8.4-10.2)
[2016-11-23 07:42] VITALS: BP 105/69; RESP 18
[2016-11-23] MEDS: INSULIN ASPART [NOVOLOG] 3 ML PEN SC SCH ×4 (08:08→21:11)
[2016-11-23] MEDS: PANTOPRAZOLE 40 MG INJ IV SCH ×2 (09:59→20:12)
[2016-11-23] MEDS: LOSARTAN 25 MG TAB PO SCH (09:59)
[2016-11-23] MEDS: FENOFIBRATE 145 MG TAB PO SCH (09:59)
[2016-11-23] MEDS: SPIRONOLACTONE 50 MG TAB PO SCH (10:00)
--- NOTE | 2016-11-23 11:53 | CONS ---
Date/Time of Note Date/Time of Note DATE: 11/23/16 TIME: 11:53 Assessment/Plan Assessment/Plan Chief Complaint/Hosp Course PLEASE DC THIS NOTE -- WAS ASKED TO SEE THIS PATIENT -- SUBSEQUENTLY WAS ADVISED THIS IS NOT THE ACTUAL PATIENT REQUESTED TO BE SEEN after note was already opened. Thank you -- please retract this note -- patient not seen. Problems: Consultation Date/Type/Reason Admit Date/Time Nov 22, 2016 at 03:28 Initial Consult Date Type of Consultation: ID Exam/Review of Systems Vital Signs Vitals Vital Signs Date Time Temp Pulse Resp B/P Pulse Ox O2 Delivery O2 Flow Rate FiO2 11/23/16 07:42 97.8 94 18 105/69 99 11/22/16 14:30 Room Air Intake and Output 11/22/16 11/22/16 11/23/16 15:00 23:00 07:00 Intake Total 1130 ml Balance 1130 ml Results Result Diagram: 11/23/16 0500 11/23/16 0500 Results 24 hrs Laboratory Tests Test 11/22/16 13:14 11/22/16 17:26 11/22/16 22:00 11/23/16 02:12 Urine Bilirubin NEGATIVE Urine Clarity CLEAR Urine Color LT. YELLOW Urine Epithelial Cells RARE Urine Glucose >=1000 Urine Hemoglobin NEGATIVE Urine Ketones NEGATIVE Urine Leukocyte Esterase TRACE H Urine Microscopic RBC NONE SEEN Urine Microscopic WBC 2-5 Urine Nitrite NEGATIVE Urine Specific [place] <=1.005 L Urine Total Protein NEGATIVE Urine Urobilinogen 0.2 E.U./dL Urine pH 5.0 Bedside Glucose 318 H 248 H 167 Test 11/23/16 05:00 11/23/16 07:51 11/23/16 11:49 Alanine Aminotransferase (ALT/SGPT) 59 Albumin 2.3 L Albumin/Globulin Ratio 0.63 Alkaline Phosphatase 199 H Anion Gap 13 Aspartate Amino Transf (AST/SGOT) 78 H Basophils # 0.1 Basophils % 1.5 Blood Urea Nitrogen 22 H Calcium Level 8.4 Carbon Dioxide Level 16 L Chloride Level 102 Creatinine 0.53 L Direct Bilirubin 0.00 Eosinophils # 0.1 Eosinophils % 2.9 Globulin 3.60 H Glucose Level 137 # Hematocrit 33.9 L Hemoglobin 11.6 L Indirect Bilirubin 0.7 Lipase 317 H Lymphocytes # 0.7 L Lymphocytes % 16.2 Mean Corpuscular Hemoglobin 29.8 Mean Corpuscular Hemoglobin Concent 34.2 Mean Corpuscular Volume 87.1 Mean Platelet Volume 11.9 H Monocytes # 0.7 Monocytes % 17.2 H Neutrophils # 2.5 Neutrophils % 61.7 Nucleated Red Blood Cells # 0.0 Nucleated Red Blood Cells % 0.0 Platelet Count 139 L Potassium Level 4.8 Red Blood Count 3.89 L Red Cell Distribution Width 15.4 H Sodium Level 126 L Total Bilirubin 0.7 Total Protein 5.9 L White Blood Count 4.1 #L Bedside Glucose 125 312 H Medications Medications Current Medications Pantoprazole (Protonix Iv) 40 mg BID IV Last administered on 11/23/16 09:59; Admin Dose 40 MG; Start 11/22/16 at 09:00 Ondansetron HCl (Zofran Inj) 4 mg Q6H PRN IV NAUSEA ; Start 11/22/16 at 08:30 Morphine Sulfate (morphine) 1 mg Q4H PRN IV PAIN; Start 11/22/16 at 09:00 Diagnostic Test (Pha) 1 ea 1 ea 02 XX ; Start 11/23/16 at 02:00 Sodium Chloride (NS) 1,000 ml @ 30 mls/hr Q24H IV Last administered on 18:03; Admin Dose 30 MLS/HR; Start 11/22/16 at 16:00 Fenofibrate (Tricor) 145 mg DAILY PO Last administered on 11/23/16 09:59; Admin Dose 145 MG; Start 11/23/16 at 09:00 Furosemide (Lasix) 40 mg DAILY@06 PO ; Start 11/23/16 at 06:00 Losartan Potassium (Cozaar) 25 mg DAILY PO Last administered on 11/23/16 09:59 ; Admin Dose 25 MG; Start 11/23/16 at 09:00 Ondansetron HCl (Zofran Odt) 4 mg Q6H PRN ODT NAUSEA AND/OR VOMITING; Start 07/29 at 16:00 Pantoprazole (Protonix Tab) 40 mg DAILY@06 PO Last administered on 11/23/16 05 :20; Admin Dose 40 MG; Start 11/23/16 at 06:00 Spironolactone (Aldactone) 100 mg QAM PO Last administered on 11/23/16 10:00; Admin Dose 100 MG; Start 11/23/16 at 09:00 Miscellaneous Information 1 ea NOTE XX ; Start 11/22/16 at 17:00 Glucose (Glutose) 15 gm Q15M PRN PO DECREASED GLUCOSE; Start 11/22/16 at 17:00 Glucose (Glutose) 22.5 gm Q15M PRN PO DECREASED GLUCOSE; Start 11/22/16 at 17: 00 Dextrose (D50w Syringe) 25 ml Q15M PRN IV DECREASED GLUCOSE; Start 11/22/16 at 17:00 Dextrose (D50w Syringe) 50 ml Q15M PRN IV DECREASED GLUCOSE; Start 11/22/16 at 17:00 Glucagon (Glucagen) 1 mg Q15M PRN IM DECREASED GLUCOSE; Start 11/22/16 at 17:00 Glucose (Glutose) 15 gm Q15M PRN BUCCAL DECREASED GLUCOSE; Start 11/22/16 at 17 :00 Temazepam (Restoril) 30 mg HS PRN PO SLEEP; Start 11/23/16 at 00:55 Midodrine 5 mg 5 mg TID@,13,17 PO Last administered on 11/23/16 06:36; Admin Dose 5 MG; Start 11/23/16 at 06:30 Albumin Human (Albumin Human 25%) 200 ml @ 100 mls/hr ONCE ONCE IV Last administered on 11/23/16 06:49; Admin Dose 100 MLS/HR; Start 11/23/16 at 06:30 ; Stop 11/23/16 at 08:29 JOSÉ MIGUEL COYLE NP Nov 23, 2016 11:53
[2016-11-23] MEDS: SOD CHLORIDE 0.9% 1,000 ML IV SCH (16:00)
--- NOTE | 2016-11-23 19:02 | PN ---
Date/Time of Note Date/Time of Note DATE: 11/23/16 TIME: 18:59 Assessment/Plan VTE Prophylaxis VTE Prophylaxis Intervention: other Assessment/Plan Assessment/Plan Abdominal pain. 2. Chronic pancreatitis. 3. Cirrhosis of the liver. 4. Anemia. 5. Hyponatremia. 6. Hepatic encephalopathy. [id number] coherent gets paracentesis every 10 days may need soon chk ammomnia level am Exam/Review of Systems Vital Signs Vitals Vital Signs Date Time Temp Pulse Resp B/P Pulse Ox O2 Delivery O2 Flow Rate FiO2 11/23/16 07:42 97.8 94 18 105/69 99 11/22/16 14:30 Room Air Intake and Output 11/22/16 11/22/16 11/23/16 15:00 23:00 07:00 Intake Total 1130 ml Balance 1130 ml Exam Constitutional: alert, oriented, well developed Neck: supple Respiratory: clear to auscultation Cardiovascular: regular rate and rhythm Gastrointestinal: distended, soft Musculoskeletal: nl extremities to inspection Neurological: nl mental status Results Result Diagram: 11/23/16 0500 11/23/16 0500 Results 24 hrs Laboratory Tests Test 11/22/16 22:00 11/23/16 02:12 11/23/16 05:00 11/23/16 07:51 Bedside Glucose 248 H 167 125 Alanine Aminotransferase (ALT/SGPT) 59 Albumin 2.3 L Albumin/Globulin Ratio 0.63 Alkaline Phosphatase 199 H Anion Gap 13 Aspartate Amino Transf (AST/SGOT) 78 H Basophils # 0.1 Basophils % 1.5 Blood Urea Nitrogen 22 H Calcium Level 8.4 Carbon Dioxide Level 16 L Chloride Level 102 Creatinine 0.53 L Direct Bilirubin 0.00 Eosinophils # 0.1 Eosinophils % 2.9 Globulin 3.60 H Glucose Level 137 # Hematocrit 33.9 L Hemoglobin 11.6 L Indirect Bilirubin 0.7 Lipase 317 H Lymphocytes # 0.7 L Lymphocytes % 16.2 Mean Corpuscular Hemoglobin 29.8 Mean Corpuscular Hemoglobin Concent 34.2 Mean Corpuscular Volume 87.1 Mean Platelet Volume 11.9 H Monocytes # 0.7 Monocytes % 17.2 H Neutrophils # 2.5 Neutrophils % 61.7 Nucleated Red Blood Cells # 0.0 Nucleated Red Blood Cells % 0.0 Platelet Count 139 L Potassium Level 4.8 Red Blood Count 3.89 L Red Cell Distribution Width 15.4 H Sodium Level 126 L Total Bilirubin 0.7 Total Protein 5.9 L White Blood Count 4.1 #L Test 11/23/16 11:49 11/23/16 17:42 Bedside Glucose 312 H 321 H Medications Medications Current Medications Pantoprazole (Protonix Iv) 40 mg BID IV Last administered on 11/23/16 09:59; Admin Dose 40 MG; Start 11/22/16 at 09:00 Ondansetron HCl (Zofran Inj) 4 mg Q6H PRN IV NAUSEA ; Start 11/22/16 at 08:30 Morphine Sulfate (morphine) 1 mg Q4H PRN IV PAIN; Start 11/22/16 at 09:00 Diagnostic Test (Pha) 1 ea 1 ea 02 XX ; Start 11/23/16 at 02:00 Sodium Chloride (NS) 1,000 ml @ 30 mls/hr Q24H IV Last administered on 18:03; Admin Dose 30 MLS/HR; Start 11/22/16 at 16:00 Fenofibrate (Tricor) 145 mg DAILY PO Last administered on 11/23/16 09:59; Admin Dose 145 MG; Start 11/23/16 at 09:00 Furosemide (Lasix) 40 mg DAILY@06 PO ; Start 11/23/16 at 06:00 Losartan Potassium (Cozaar) 25 mg DAILY PO Last administered on 11/23/16 09:59 ; Admin Dose 25 MG; Start 11/23/16 at 09:00 Ondansetron HCl (Zofran Odt) 4 mg Q6H PRN ODT NAUSEA AND/OR VOMITING; Start 07/29 at 16:00 Pantoprazole (Protonix Tab) 40 mg DAILY@06 PO Last administered on 11/23/16 05 :20; Admin Dose 40 MG; Start 11/23/16 at 06:00 Spironolactone (Aldactone) 100 mg QAM PO Last administered on 11/23/16 10:00; Admin Dose 100 MG; Start 11/23/16 at 09:00 Miscellaneous Information 1 ea NOTE XX ; Start 11/22/16 at 17:00 Glucose (Glutose) 15 gm Q15M PRN PO DECREASED GLUCOSE; Start 11/22/16 at 17:00 Glucose (Glutose) 22.5 gm Q15M PRN PO DECREASED GLUCOSE; Start 11/22/16 at 17: 00 Dextrose (D50w Syringe) 25 ml Q15M PRN IV DECREASED GLUCOSE; Start 11/22/16 at 17:00 Dextrose (D50w Syringe) 50 ml Q15M PRN IV DECREASED GLUCOSE; Start 11/22/16 at 17:00 Glucagon (Glucagen) 1 mg Q15M PRN IM DECREASED GLUCOSE; Start 11/22/16 at 17:00 Glucose (Glutose) 15 gm Q15M PRN BUCCAL DECREASED GLUCOSE; Start 11/22/16 at 17 :00 Temazepam (Restoril) 30 mg HS PRN PO SLEEP; Start 11/23/16 at 00:55 Midodrine 5 mg 5 mg TID@,13,17 PO Last administered on 11/23/16 17:56; Admin Dose 5 MG; Start 11/23/16 at 06:30 Albumin Human (Albumin Human 25%) 200 ml @ 100 mls/hr ONCE ONCE IV Last administered on 11/23/16 06:49; Admin Dose 100 MLS/HR; Start 11/23/16 at 06:30 ; Stop 11/23/16 at 08:29 KATI ALLRED MD Nov 23, 2016 19:02
[2016-11-23 19:36] VITALS: BP 83/53; RESP 20
[2016-11-23] MEDS: TEMAZEPAM 15 MG CAP PO PRN (21:16)
[2016-11-23 22:30] VITALS: BP 81/50
[2016-11-24] VITALS (17 sets, daily range): BP systolic 58–94; BP diastolic 40–65; PULSE 69–100; RESP 18–20
[2016-11-24] MEDS: TEMAZEPAM 15 MG CAP PO PRN (01:04)
[2016-11-24] MEDS: ACCUCHECK XX SCH (02:45)
[2016-11-24] MEDS: SOD CHLORIDE 0.9% 1,000 ML IV SCH ×2 (03:53→16:00)
[2016-11-24 05:25] LABS: ALBUMIN 2.1 g/dl (3.3-4.9)
[2016-11-24 05:26] LABS: POTASSIUM 4.1 mmol/L (3.5-5.1)
[2016-11-24 05:28] LABS: ALBUMIN/GLOBULIN RATIO 0.72; BILIRUBIN,INDIRECT 0.3 mg/dl (0-1.1); BILIRUBIN,TOTAL 0.3 mg/dl (0.2-1.3); CREATININE 0.83 mg/dl (0.61-1.24)
[2016-11-24 05:31] LABS: BASOPHILS % 0.8 % (0.0-2.0); EOSINOPHILS # 0.1 10^3/ul (0.0-0.5); EOSINOPHILS % 2.6 % (0.0-7.0); HEMATOCRIT 30.6 % (42.0-52.0); HEMOGLOBIN 10.5 g/dl (14.0-18.0); LYMPHOCYTES # 0.8 10^3/ul (0.8-2.9); LYMPHOCYTES % 17.2 % (15.0-51.0); MEAN CORPUSCULAR HEMOGLOBIN 30.6 pg (29.0-33.0); MEAN CORPUSCULAR HGB CONC 34.3 g/dl (32.0-37.0); MEAN CORPUSCULAR VOLUME 89.2 fl (82.0-101.0); MEAN PLATELET VOLUME 10.5 fl (7.4-10.4); MONOCYTE # 0.8 10^3/ul (0.3-0.9); MONOCYTES % 17.6 % (0.0-11.0); NEUTROPHIL # 2.8 10^3/ul (1.6-7.5); NEUTROPHILS % 61.8 % (39.0-77.0); PLATELET COUNT 114 10^3/UL (140-440); RED BLOOD COUNT 3.43 10^6/ul (4.70-6.10); RED CELL DISTRIBUTION WIDTH 16.1 % (11.5-14.5); UNCORRECTED WBC 4.5 10^3/ul (4.8-10.8); WHITE BLOOD COUNT 4.5 10^3/ul (4.8-10.8)
[2016-11-24] MEDS: FUROSEMIDE 40 MG TAB PO SCH (06:00)
[2016-11-24 06:03] LABS: CONDITION 1; LH ANALYZER COMMENTS 1
[2016-11-24] MEDS: PANTOPRAZOLE (EC) 40 MG TAB PO SCH (06:10)
[2016-11-24] MEDS: LACTULOSE 30ML CUP PO SCH ×3 (06:52→17:26)
[2016-11-24] MEDS ORDERED: SOD CHLORIDE 0.9% 250 ML IV ONE (07:00)
[2016-11-24] MEDS: FENOFIBRATE 145 MG TAB PO SCH (08:50)
[2016-11-24] MEDS: MIDODRINE 5 MG TAB PO SCH ×3 (08:50→17:27)
[2016-11-24] MEDS: PANTOPRAZOLE 40 MG INJ IV SCH ×2 (08:50→20:34)
[2016-11-24] MEDS: INSULIN ASPART [NOVOLOG] 3 ML PEN SC SCH ×4 (08:54→20:46)
[2016-11-24] MEDS: SPIRONOLACTONE 50 MG TAB PO SCH (09:00)
[2016-11-24] MEDS: LOSARTAN 25 MG TAB PO SCH (09:00)
--- NOTE | 2016-11-24 10:22 | PN ---
Date/Time of Note Date/Time of Note DATE: 11/24/16 TIME: 10:20 Assessment/Plan VTE Prophylaxis VTE Prophylaxis Intervention: other Assessment/Plan Chief Complaint/Hosp Course Assessment/Plan Abdominal pain. 2. Chronic pancreatitis. 3. Cirrhosis of the liver. 4. Anemia. 5. Hyponatremia. 6. Hepatic encephalopathy. [id number] coherent gets paracentesis every 10 days may need soon chk ammomnia level am [id number] dropped bp ivf bolus mentation clear ammonia increase/lactulose start diet Problems: Exam/Review of Systems Vital Signs Vitals Vital Signs Date Time Temp Pulse Resp B/P Pulse Ox O2 Delivery O2 Flow Rate FiO2 11/24/16 09:20 72 74/57 11/24/16 07:30 97.8 18 97 11/22/16 14:30 Room Air Intake and Output 11/23/16 11/23/16 11/24/16 15:00 23:00 07:00 Intake Total 200 ml 3290 ml 970 ml Output Total 500 ml Balance 200 ml 2790 ml 970 ml Exam Constitutional: alert, oriented, well developed Psych: no complaints Eyes: nl conjunctiva Neck: supple Respiratory: clear to auscultation Cardiovascular: regular rate and rhythm Gastrointestinal: distended, soft Extremities: normal pulses Results Result Diagram: 11/24/16 0450 11/24/16 0450 Results 24 hrs Laboratory Tests Test 11/23/16 11:49 11/23/16 17:42 11/23/16 21:05 11/24/16 02:23 Bedside Glucose 312 H 321 H 305 H 200 Test 11/24/16 04:50 11/24/16 08:01 Alanine Aminotransferase (ALT/SGPT) 49 Albumin 2.1 L Albumin/Globulin Ratio 0.72 Alkaline Phosphatase 154 H Ammonia 85 H Anion Gap 12 Aspartate Amino Transf (AST/SGOT) 62 H Basophils # 0.0 Basophils % 0.8 Blood Morphology Comment Blood Urea Nitrogen 28 H Calcium Level 8.0 L Carbon Dioxide Level 16 L Chloride Level 104 Creatinine 0.83 Direct Bilirubin 0.00 Eosinophils # 0.1 Eosinophils % 2.6 Globulin 2.90 Glucose Level 151 Hematocrit 30.6 L Hemoglobin 10.5 L Indirect Bilirubin 0.3 Lymphocytes # 0.8 Lymphocytes % 17.2 Mean Corpuscular Hemoglobin 30.6 Mean Corpuscular Hemoglobin Concent 34.3 Mean Corpuscular Volume 89.2 Mean Platelet Volume 10.5 H Monocytes # 0.8 Monocytes % 17.6 H Neutrophils # 2.8 Neutrophils % 61.8 Nucleated Red Blood Cells # 0.0 Nucleated Red Blood Cells % 0.0 Platelet Count 114 #L Potassium Level 4.1 Red Blood Count 3.43 L Red Cell Distribution Width 16.1 H Sodium Level 128 L Total Bilirubin 0.3 Total Protein 5.0 L White Blood Count 4.5 L Bedside Glucose 152 Medications Medications Current Medications Pantoprazole (Protonix Iv) 40 mg BID IV Last administered on 11/24/16 08:50; Admin Dose 40 MG; Start 11/22/16 at 09:00 Ondansetron HCl (Zofran Inj) 4 mg Q6H PRN IV NAUSEA ; Start 11/22/16 at 08:30 Morphine Sulfate (morphine) 1 mg Q4H PRN IV PAIN; Start 11/22/16 at 09:00 Diagnostic Test (Pha) 1 ea 1 ea 02 XX Last administered on 11/24/16 02:45; Admin Dose 1 EA; Start 11/23/16 at 02:00 Sodium Chloride (NS) 1,000 ml @ 30 mls/hr Q24H IV Last administered on 03:53; Admin Dose 30 MLS/HR; Start 11/22/16 at 16:00 Fenofibrate (Tricor) 145 mg DAILY PO Last administered on 11/24/16 08:50; Admin Dose 145 MG; Start 11/23/16 at 09:00 Furosemide (Lasix) 40 mg DAILY@06 PO ; Start 11/23/16 at 06:00 Losartan Potassium (Cozaar) 25 mg DAILY PO Last administered on 11/23/16 09:59 ; Admin Dose 25 MG; Start 11/23/16 at 09:00 Ondansetron HCl (Zofran Odt) 4 mg Q6H PRN ODT NAUSEA AND/OR VOMITING; Start 07/29 at 16:00 Pantoprazole (Protonix Tab) 40 mg DAILY@06 PO Last administered on 11/24/16 06 :10; Admin Dose 40 MG; Start 11/23/16 at 06:00 Spironolactone (Aldactone) 100 mg QAM PO Last administered on 11/23/16 10:00; Admin Dose 100 MG; Start 11/23/16 at 09:00 Miscellaneous Information 1 ea NOTE XX ; Start 11/22/16 at 17:00 Glucose (Glutose) 15 gm Q15M PRN PO DECREASED GLUCOSE; Start 11/22/16 at 17:00 Glucose (Glutose) 22.5 gm Q15M PRN PO DECREASED GLUCOSE; Start 11/22/16 at 17: 00 Dextrose (D50w Syringe) 25 ml Q15M PRN IV DECREASED GLUCOSE; Start 11/22/16 at 17:00 Dextrose (D50w Syringe) 50 ml Q15M PRN IV DECREASED GLUCOSE; Start 11/22/16 at 17:00 Glucagon (Glucagen) 1 mg Q15M PRN IM DECREASED GLUCOSE; Start 11/22/16 at 17:00 Glucose (Glutose) 15 gm Q15M PRN BUCCAL DECREASED GLUCOSE; Start 11/22/16 at 17 :00 Temazepam (Restoril) 30 mg HS PRN PO SLEEP Last administered on 11/24/16 01:04 ; Admin Dose 30 MG; Start 11/23/16 at 00:55 Midodrine 5 mg 5 mg TID@,,17 PO Last administered on 11/24/16 08:50; Admin Dose 5 MG; Start 11/23/16 at 06:30 Albumin Human 200 ml @ 100 mls/hr ONCE ONCE IV Last administered on 06:49; Admin Dose 100 MLS/HR; Start 11/23/16 at 06:30; Stop 11/23/16 at 08: 29 Sodium Chloride (NS) 250 ml @ 250 mls/hr Q1H ONCE IV Last administered on 11/24 06:41; Admin Dose 250 MLS/HR; Start 11/24/16 at 07:00; Stop 11/24/16 at 07 :59 Lactulose (Enulose) 20 gm Q6 PO Last administered on 11/24/16 06:52; Admin Dose 20 GM; Start 11/24/16 at 07:00 KATI ALLRED MD Nov 24, 2016 10:22
[2016-11-24] MEDS: morphine 2 MG INJ IV PRN (20:34)
[2016-11-25] MEDS: morphine 2 MG INJ IV PRN ×6 (00:58→22:49)
[2016-11-25] MEDS: SOD CHLORIDE 0.9% 1,000 ML IV SCH ×2 (00:59→18:14)
[2016-11-25] MEDS: LACTULOSE 30ML CUP PO SCH ×4 (01:04→17:23)
[2016-11-25] MEDS: ACCUCHECK XX SCH (02:31)
[2016-11-25 04:00] VITALS: BP 100/54; PULSE 64; RESP 18
[2016-11-25] MEDS: PANTOPRAZOLE (EC) 40 MG TAB PO SCH (05:01)
[2016-11-25] MEDS: FUROSEMIDE 40 MG TAB PO SCH (05:04)
[2016-11-25 07:27] VITALS: BP 94/64; RESP 18
[2016-11-25] MEDS: ONDANSETRON 4 MG INJ IV PRN ×2 (07:55→18:14)
[2016-11-25] MEDS: INSULIN ASPART [NOVOLOG] 3 ML PEN SC SCH ×4 (08:15→20:15)
[2016-11-25] MEDS: SPIRONOLACTONE 50 MG TAB PO SCH (08:36)
[2016-11-25] MEDS: LOSARTAN 25 MG TAB PO SCH (08:36)
[2016-11-25] MEDS: PANTOPRAZOLE 40 MG INJ IV SCH (09:00)
[2016-11-25] MEDS: MIDODRINE 5 MG TAB PO SCH ×3 (09:00→17:24)
[2016-11-25] MEDS: FENOFIBRATE 145 MG TAB PO SCH (09:00)
[2016-11-25 10:00] VITALS: BP 100/60; PULSE 68
--- NOTE | 2016-11-25 11:58 | PN ---
Date/Time of Note Date/Time of Note DATE: 11/25/16 TIME: 11:57 Assessment/Plan VTE Prophylaxis VTE Prophylaxis Intervention: other Assessment/Plan Chief Complaint/Hosp Course Assessment/Plan Abdominal pain. 2. Chronic pancreatitis. 3. Cirrhosis of the liver. 4. Anemia. 5. Hyponatremia. 6. Hepatic encephalopathy. [id number] coherent gets paracentesis every 10 days may need soon chk ammomnia level am [id number] dropped bp ivf bolus mentation clear ammonia increase/lactulose start diet [id number] paracentesis plan Problems: Subjective 24 Hr Interval Summary Gastrointestinal: other Exam/Review of Systems Vital Signs Vitals Vital Signs Date Time Temp Pulse Resp B/P Pulse Ox O2 Delivery O2 Flow Rate FiO2 11/25/16 07:27 98.1 98 18 94/64 96 11/22/16 14:30 Room Air Intake and Output 11/24/16 11/24/16 11/25/16 15:00 23:00 07:00 Intake Total 400 ml 1570 ml 1375 ml Balance 400 ml 1570 ml 1375 ml Exam Constitutional: alert, oriented, well developed Head: normocephalic Eyes: nl conjunctiva ENMT: nl external ears & nose Neck: supple Respiratory: clear to auscultation Cardiovascular: regular rate and rhythm Gastrointestinal: distended, soft Results Result Diagram: 11/24/16 0450 11/24/16 0450 Results 24 hrs Laboratory Tests Test 11/24/16 17:11 11/24/16 20:40 11/25/16 02:18 11/25/16 07:46 Bedside Glucose 234 H 208 226 H 291 H Test 11/25/16 11:53 Bedside Glucose 322 H Medications Medications Current Medications Pantoprazole (Protonix Iv) 40 mg BID IV Last administered on 11/25/16 09:00; Admin Dose 40 MG; Start 11/22/16 at 09:00 Ondansetron HCl (Zofran Inj) 4 mg Q6H PRN IV NAUSEA Last administered on 07:55; Admin Dose 4 MG; Start 11/22/16 at 08:30 Morphine Sulfate (morphine) 1 mg Q4H PRN IV PAIN Last administered on 09:01; Admin Dose 1 MG; Start 11/22/16 at 09:00 Diagnostic Test (Pha) 1 ea 1 ea 02 XX Last administered on 11/25/16 02:31; Admin Dose 1 EA; Start 11/23/16 at 02:00 Sodium Chloride (NS) 1,000 ml @ 75 mls/hr [id number] IV Last administered on 11/25 00:59; Admin Dose 75 MLS/HR; Start 11/22/16 at 16:00 Fenofibrate (Tricor) 145 mg DAILY PO Last administered on 11/25/16 09:00; Admin Dose 145 MG; Start 11/23/16 at 09:00 Furosemide (Lasix) 40 mg DAILY@06 PO ; Start 11/23/16 at 06:00 Losartan Potassium (Cozaar) 25 mg DAILY PO Last administered on 11/23/16 09:59 ; Admin Dose 25 MG; Start 11/23/16 at 09:00 Ondansetron HCl (Zofran Odt) 4 mg Q6H PRN ODT NAUSEA AND/OR VOMITING; Start 07/29 at 16:00 Pantoprazole (Protonix Tab) 40 mg DAILY@06 PO Last administered on 11/25/16 05 :01; Admin Dose 40 MG; Start 11/23/16 at 06:00 Spironolactone (Aldactone) 100 mg QAM PO Last administered on 11/23/16 10:00; Admin Dose 100 MG; Start 11/23/16 at 09:00 Miscellaneous Information 1 ea NOTE XX ; Start 11/22/16 at 17:00 Glucose (Glutose) 15 gm Q15M PRN PO DECREASED GLUCOSE; Start 11/22/16 at 17:00 Glucose (Glutose) 22.5 gm Q15M PRN PO DECREASED GLUCOSE; Start 11/22/16 at 17: 00 Dextrose (D50w Syringe) 25 ml Q15M PRN IV DECREASED GLUCOSE; Start 11/22/16 at 17:00 Dextrose (D50w Syringe) 50 ml Q15M PRN IV DECREASED GLUCOSE; Start 11/22/16 at 17:00 Glucagon (Glucagen) 1 mg Q15M PRN IM DECREASED GLUCOSE; Start 11/22/16 at 17:00 Glucose (Glutose) 15 gm Q15M PRN BUCCAL DECREASED GLUCOSE; Start 11/22/16 at 17 :00 Temazepam (Restoril) 30 mg HS PRN PO SLEEP Last administered on 11/24/16 01:04 ; Admin Dose 30 MG; Start 11/23/16 at 00:55 Midodrine (Proamatine) 5 mg TID@ PO Last administered on 11/25/16 09: 00; Admin Dose 5 MG; Start 11/23/16 at 06:30 Lactulose (Enulose) 20 gm Q6 PO Last administered on 11/25/16 05:01; Admin Dose 20 GM; Start 11/24/16 at 07:00 KATI ALLRED MD Nov 25, 2016 11:58
[2016-11-25 12:52] LABS: BASOPHILS % 0.6 % (0.0-2.0); EOSINOPHILS # 0.1 10^3/ul (0.0-0.5); EOSINOPHILS % 1.3 % (0.0-7.0); HEMATOCRIT 36.1 % (42.0-52.0); HEMOGLOBIN 12.2 g/dl (14.0-18.0); LYMPHOCYTES # 0.5 10^3/ul (0.8-2.9); LYMPHOCYTES % 9.9 % (15.0-51.0); MEAN CORPUSCULAR HEMOGLOBIN 30.4 pg (29.0-33.0); MEAN CORPUSCULAR HGB CONC 33.7 g/dl (32.0-37.0); MEAN CORPUSCULAR VOLUME 90.2 fl (82.0-101.0); MEAN PLATELET VOLUME 10.6 fl (7.4-10.4); MONOCYTE # 0.7 10^3/ul (0.3-0.9); MONOCYTES % 12.2 % (0.0-11.0); NEUTROPHIL # 4.2 10^3/ul (1.6-7.5); PLATELET COUNT 139 10^3/UL (140-440); RED CELL DISTRIBUTION WIDTH 16.3 % (11.5-14.5); UNCORRECTED WBC 5.5 10^3/ul (4.8-10.8); WHITE BLOOD COUNT 5.5 10^3/ul (4.8-10.8)
[2016-11-25 12:55] LABS: CONDITION 1; LH ANALYZER COMMENTS 1; SUSPECT 1
[2016-11-25 13:01] LABS: INR 1.24; PROTIME 15.7 Sec (12.2-14.2); PT RATIO 1.2
[2016-11-25 13:02] LABS: ALBUMIN 2.5 g/dl (3.3-4.9)
[2016-11-25 13:03] LABS: POTASSIUM 5.1 mmol/L (3.5-5.1)
[2016-11-25 13:05] LABS: ALBUMIN/GLOBULIN RATIO 0.75; BILIRUBIN,INDIRECT 0.7 mg/dl (0-1.1); BILIRUBIN,TOTAL 0.7 mg/dl (0.2-1.3); CREATININE 0.69 mg/dl (0.61-1.24); TOTAL PROTEIN 5.8 g/dl (6.1-8.1)
[2016-11-25 13:06] LABS: CALCIUM 8.5 mg/dl (8.4-10.2)
[2016-11-25] MEDS ORDERED: LIDOCAINE 1% (MPF) 5 ML VIAL ONE (15:41)
--- NOTE | 2016-11-25 17:56 | RADRPT ---
PROCEDURE: Ultrasound guided paracentesis. CLINICAL INDICATION: Ascites and shortness of breath. COMPARISON: 11/21/2016. TECHNIQUE: The risks, benefits, and alternatives were explained to the patient and/or the patient's family, inc luding but not limited to bleeding, infection, pain, visceral or vascular damage, shock, and . The patient and/or the patient's family understood the risks and the alternatives and wished to pro ceed with the procedure. Informed written consent was obtained. A procedural time out was performed . The patient's name, date of , and procedure to be performed were verified. Utilizing ultrasound guidance, optimal location for entry to the peritoneal cavity was ascertained. The overlying skin was prepped and draped in the usual sterile fashion. Approximately 10 ml of 1% Xylocaine was injected locally for pain control. Using ultrasound guidance, an 8 [place] catheter wa s introduced into the peritoneal cavity in the right lower quadrant without difficulty. FINDINGS: Initial images demonstrate ascites. Approximately 9.2 liters of serous fluid was aspirated and disc arded. The patient tolerated the procedure well without complication. IMPRESSION: 1. Successful ultrasound-guided paracentesis. RPTAT: QQ .Thierno Ventura MD, Date Time Electronically viewed and signed by .Thierno Ventura MD, on 11/25/2016 17:56 .R/
[2016-11-25 19:46] VITALS: BP 82/53; RESP 18
[2016-11-25] MEDS: TEMAZEPAM 15 MG CAP PO PRN (22:49)
[2016-11-26] MEDS: ACCUCHECK XX SCH (02:39)
[2016-11-26] MEDS: FUROSEMIDE 40 MG TAB PO SCH (06:00)
[2016-11-26] MEDS: LACTULOSE 30ML CUP PO SCH ×3 (06:20→12:04)
[2016-11-26] MEDS: PANTOPRAZOLE (EC) 40 MG TAB PO SCH (06:20)
[2016-11-26 06:25] VITALS: BP 93/54; PULSE 104; RESP 16
[2016-11-26 07:33] VITALS: BP 89/54; RESP 20
[2016-11-26] MEDS: LOSARTAN 25 MG TAB PO SCH (08:13)
[2016-11-26] MEDS: FENOFIBRATE 145 MG TAB PO SCH (08:35)
[2016-11-26] MEDS: MIDODRINE 5 MG TAB PO SCH (08:36)
[2016-11-26] MEDS: SPIRONOLACTONE 50 MG TAB PO SCH (08:36)
[2016-11-26] MEDS: SOD CHLORIDE 0.9% 1,000 ML IV SCH (08:37)
[2016-11-26] MEDS: INSULIN ASPART [NOVOLOG] 3 ML PEN SC SCH ×2 (09:19→12:42)
--- NOTE | 2016-11-26 12:40 | PDOCDIS ---
Discharge Instructions CONDITION Patient Condition: Stable HOME CARE INSTRUCTIONS: Diet Instructions: 2gm NaSpecial Diet: 1800 NAILA 2GM NA ACTIVITY: Activity Restrictions: Avoid heavy lifting KATI ALLRED MD Nov 26, 2016 12:40
--- NOTE | 2016-11-26 12:43 | PN ---
Date/Time of Note Date/Time of Note DATE: 11/26/16 TIME: 12:41 Assessment/Plan VTE Prophylaxis VTE Prophylaxis Intervention: other Assessment/Plan Chief Complaint/Hosp Course Assessment/Plan Abdominal pain. 2. Chronic pancreatitis. 3. Cirrhosis of the liver. 4. Anemia. 5. Hyponatremia. 6. Hepatic encephalopathy. [id number] coherent gets paracentesis every 10 days may need soon chk ammomnia level am [id number] dropped bp ivf bolus mentation clear ammonia increase/lactulose start diet [id number] paracentesis plan [id number] post paracentesis symptoms resolved dc home f/u pmd Problems: Subjective 24 Hr Interval Summary Constitutional: no complaints Exam/Review of Systems Vital Signs Vitals Vital Signs Date Time Temp Pulse Resp B/P Pulse Ox O2 Delivery O2 Flow Rate FiO2 11/26/16 07:33 88 20 89/54 97 11/26/16 06:25 98.0 Room Air Intake and Output 11/25/16 11/25/16 11/26/16 15:00 23:00 07:00 Intake Total 1975 ml 1100 ml Balance 1975 ml 1100 ml Exam Constitutional: alert, oriented Psych: no complaints Head: normocephalic Neck: supple Respiratory: clear to auscultation Cardiovascular: regular rate and rhythm Gastrointestinal: soft Extremities: edema Results Result Diagram: 11/25/16 1240 11/25/16 1240 Results 24 hrs Laboratory Tests Test 11/25/16 17:23 11/25/16 20:09 11/26/16 02:33 11/26/16 07:47 Bedside Glucose 299 H 275 H 199 175 Test 11/26/16 11:26 Bedside Glucose 330 H Medications Medications Current Medications Ondansetron HCl (Zofran Inj) 4 mg Q6H PRN IV NAUSEA Last administered on 18:14; Admin Dose 4 MG; Start 11/22/16 at 08:30 Morphine Sulfate (morphine) 1 mg Q4H PRN IV PAIN Last administered on 22:49; Admin Dose 1 MG; Start 11/22/16 at 09:00 Diagnostic Test (Pha) 1 ea 1 ea 02 XX Last administered on 11/26/16 02:39; Admin Dose 1 EA; Start 11/23/16 at 02:00 Sodium Chloride (NS) 1,000 ml @ 75 mls/hr [id number] IV Last administered on 11/26 08:37; Admin Dose 75 MLS/HR; Start 11/22/16 at 16:00 Fenofibrate (Tricor) 145 mg DAILY PO Last administered on 11/26/16 08:35; Admin Dose 145 MG; Start 11/23/16 at 09:00 Furosemide (Lasix) 40 mg DAILY@06 PO ; Start 11/23/16 at 06:00 Losartan Potassium (Cozaar) 25 mg DAILY PO Last administered on 11/23/16 09:59 ; Admin Dose 25 MG; Start 11/23/16 at 09:00 Ondansetron HCl (Zofran Odt) 4 mg Q6H PRN ODT NAUSEA AND/OR VOMITING; Start 07/29 at 16:00 Pantoprazole (Protonix Tab) 40 mg DAILY@06 PO Last administered on 11/26/16 06 :20; Admin Dose 40 MG; Start 11/23/16 at 06:00 Spironolactone (Aldactone) 100 mg QAM PO Last administered on 11/26/16 08:36; Admin Dose 100 MG; Start 11/23/16 at 09:00 Miscellaneous Information 1 ea NOTE XX ; Start 11/22/16 at 17:00 Glucose (Glutose) 15 gm Q15M PRN PO DECREASED GLUCOSE; Start 11/22/16 at 17:00 Glucose (Glutose) 22.5 gm Q15M PRN PO DECREASED GLUCOSE; Start 11/22/16 at 17: 00 Dextrose (D50w Syringe) 25 ml Q15M PRN IV DECREASED GLUCOSE; Start 11/22/16 at 17:00 Dextrose (D50w Syringe) 50 ml Q15M PRN IV DECREASED GLUCOSE; Start 11/22/16 at 17:00 Glucagon (Glucagen) 1 mg Q15M PRN IM DECREASED GLUCOSE; Start 11/22/16 at 17:00 Glucose (Glutose) 15 gm Q15M PRN BUCCAL DECREASED GLUCOSE; Start 11/22/16 at 17 :00 Temazepam (Restoril) 30 mg HS PRN PO SLEEP Last administered on 11/25/16 22:49 ; Admin Dose 30 MG; Start 11/23/16 at 00:55 Midodrine (Proamatine) 5 mg TID@,,17 PO Last administered on 11/26/16 08: 36; Admin Dose 5 MG; Start 11/23/16 at 06:30 Lactulose (Enulose) 20 gm Q6 PO Last administered on 11/26/16 06:20; Admin Dose 20 GM; Start 11/24/16 at 07:00 KATI ALLRED MD Nov 26, 2016 12:42
[2016-11-27] MEDS ORDERED: ONDA4TAB14 PO (18:26)
== END 2016-11-26 15:15 | disposition home or self-care (01) | DRG 948 ==
LOC: E/R 00:36 → MS2 03:28
PROVIDERS: ADMIT Internal Medicine Nephrology; ATTEND Internal Medicine Nephrology
PROC: 0W9G3ZZ Drainage of Peritoneal Cavity, Percutaneous Approach (ICD-10-PCS; principal; 2016-11-25)
DX: R18.8 Other ascites (principal); K72.90 Hepatic failure, unspecified without coma; K74.60 Unspecified cirrhosis of liver; E87.1 Hypo-osmolality and hyponatremia; E11.9 Type 2 diabetes mellitus without complications; I10 Essential (primary) hypertension; D64.9 Anemia, unspecified; K86.1 Other chronic pancreatitis; R10.9 Unspecified abdominal pain
CPT/HCPCS: 36415; 74176; 80048; 80053; 81001; 81003; 82140; 82962; 83690; 84484; 85025; 85610; 85730; 93005; 96374; 96375; 96376; C9113; J0696; J1815; J2270; J2405; J3010; J7030; J7040; P9047

== ENCOUNTER 2016-11-27 16:15 | Emergency (ER) | payer OTHER ==
[~2016-11-27] VITALS: Ht 175.3 cm; Wt 80.0 kg
[2016-11-27] MEDS ORDERED: ONDANSETRON 4 MG INJ IV STA (16:32)
[2016-11-27] MEDS ORDERED: SOD CHLORIDE 0.9% 1,000 ML IV STA (16:32)
[2016-11-27 16:45] VITALS: Ht 175.3 cm; Wt 80.0 kg
[2016-11-27 16:57] LABS: BASOPHILS % 0.8 % (0.0-2.0); CONDITION 1; EOSINOPHILS % 0.3 % (0.0-7.0); HEMATOCRIT 38.5 % (42.0-52.0); HEMOGLOBIN 12.9 g/dl (14.0-18.0); LYMPHOCYTES # 0.5 10^3/ul (0.8-2.9); LYMPHOCYTES % 8.7 % (15.0-51.0); MEAN CORPUSCULAR HEMOGLOBIN 30.4 pg (29.0-33.0); MEAN CORPUSCULAR HGB CONC 33.6 g/dl (32.0-37.0); MEAN CORPUSCULAR VOLUME 90.4 fl (82.0-101.0); MEAN PLATELET VOLUME 10.3 fl (7.4-10.4); MONOCYTE # 0.6 10^3/ul (0.3-0.9); MONOCYTES % 10.2 % (0.0-11.0); NEUTROPHIL # 4.4 10^3/ul (1.6-7.5); PLATELET COUNT 117 10^3/UL (140-440); RED BLOOD COUNT 4.26 10^6/ul (4.70-6.10); RED CELL DISTRIBUTION WIDTH 16.9 % (11.5-14.5); UNCORRECTED WBC 5.4 10^3/ul (4.8-10.8); WHITE BLOOD COUNT 5.4 10^3/ul (4.8-10.8)
[2016-11-27 16:58] LABS: LH ANALYZER COMMENTS 1
[2016-11-27 17:05] LABS: ALBUMIN 2.9 g/dl (3.3-4.9)
[2016-11-27 17:06] LABS: POTASSIUM 4.6 mmol/L (3.5-5.1)
[2016-11-27 17:07] LABS: INR 1.22; PROTIME 15.5 Sec (12.2-14.2); PT RATIO 1.2
[2016-11-27 17:08] LABS: ALBUMIN/GLOBULIN RATIO 0.8; BILIRUBIN,INDIRECT 0.6 mg/dl (0-1.1); BILIRUBIN,TOTAL 0.6 mg/dl (0.2-1.3); CREATININE 0.68 mg/dl (0.61-1.24); PARTIAL THROMBOPLASTIN TIME 36.5 Sec (25.0-35.0); TOTAL PROTEIN 6.5 g/dl (6.1-8.1)
[2016-11-27] MEDS ORDERED: LIDOCAINE 1% (MPF) 5 ML VIAL ONE (17:38)
[2016-11-27] MEDS ORDERED: ONDANSETRON (ODT) 4 MG TAB ODT STA (18:01)
--- NOTE | 2016-11-27 18:07 | ERD ---
ER Documentation Chief Complaint Date/Time DATE: 11/27/16 TIME: 18:05 Chief Complaint BIB RA FOR PARACENTESIS. HPI 56-year-old male well-known to this emergency department with a history of cirrhosis here in need of a paracentesis. Last paracentesis approximately 3 days ago. He does describe some mild nausea with nonbloody nonbilious emesis 1. He also has chronic lumbar back pain that is similar to back pain in the past. No fevers or chills, no abdominal pain but does describe abdominal distention. ROS All systems reviewed and are negative except as per history of present illness. Medications Home Meds Active Scripts Ondansetron (Ondansetron Odt) 4 Mg Tab.rapdis, 4 MG PO Q6H Y for NAUSEA AND/OR VOMITING, #10 TAB Prov:ANDRIY GARCIA DO 11/19/16 Insulin Aspart* (Novolog Insulin Pen*) 100 Unit/Ml Soln, 10 UNIT SC WITH MEALS BEDTIME for 28 Days Prov:JERZY BENSON MD 08/27/16 Reported Medications Dapagliflozin Propanediol (Farxiga) 10 Mg Tablet, 10 MG PO DAILY, #30 TAB 08/23/16 Insulin Glargine* (Lantus*) 100 Unit/Ml Soln, 35 UNIT SC QHS, #1 VIAL 08/23/16 Losartan Potassium* (Cozaar*) 25 Mg Tablet, 25 MG PO DAILY, #30 TAB 08/23/16 Pantoprazole* (Protonix*) 40 Mg Tablet.dr, 40 MG PO DAILY, TAB 08/23/16 Furosemide* (Furosemide*) 40 Mg Tablet, 40 MG PO DAILY, TAB 08/23/16 Fenofibrate Nanocrystallized* (Fenofibrate*) 145 Mg Tablet, 145 MG PO DAILY, TAB 08/23/16 Zolpidem Tartrate* (Zolpidem Tartrate*) 10 Mg Tablet, 10 MG PO QHS Y for INSOMNIA, #30 TAB 08/23/16 Spironolactone* (Spironolactone*) 100 Mg Tablet, 100 MG PO QAM, TAB 08/23/16 Discontinued Scripts Zolpidem Tartrate* (Ambien*) 5 Mg Tablet, 5 MG PO HS Y for INSOMNIA, #15 TAB Prov:ANDRIY GARCIA DO 11/19/16 Allergies Allergies: Coded Allergies: No Known Drug Allergy (Verified Allergy, Unknown, 11/21/16) PMhx/Soc History of Surgery: Yes Anesthesia Reaction: No Hx Neurological Disorder: Yes Hx Respiratory Disorders: No (When ascites is too much, SOB) Hx Cardiac Disorders: No Hx Psychiatric Problems: No Hx Alcohol Use: No Hx Substance Use: No Hx Tobacco Use: No (Former) Smoking Status: Never smoker FmHx Family History: No diabetes Physical Exam Vitals Vital Signs Date Time Temp Pulse Resp B/P Pulse Ox O2 Delivery O2 Flow Rate FiO2 11/27/16 16:45 98.6 80 19 137/80 99 Physical Exam General: Well developed, well nourished, no acute distress Head: Normocephalic, atraumatic. Eyes: Pupils equally reactive, EOM intact ENT: Moist mucous membranes Neck: Supple, no lymphadenopathy Respiratory: Lungs clear bilaterally, no distress Cardiovascular: RRR, no murmurs, rubs, or gallops Abdominal: Soft, protuberant with fluid wave : Deferred MSK: No edema, no unilateral swelling, 5/5 strength Neurologic: Alert and oriented, moving all extremities, normal speech, no focal weakness, no cerebellar signs Skin: No rash Psych: Normal mood Result Diagram: 11/27/16 1645 11/27/16 1645 Results 24 hrs Laboratory Tests Test 11/27/16 16:45 Activated Partial Thromboplast Time 36.5Sec Alanine Aminotransferase (ALT/SGPT) 60IU/L Albumin 2.9g/dl Albumin/Globulin Ratio 0.80 Alkaline Phosphatase 227IU/L Anion Gap 16 Aspartate Amino Transf (AST/SGOT) 70IU/L Basophils # 0.010^3/ul Basophils % 0.8% Blood Morphology Comment Blood Urea Nitrogen 19mg/dl Calcium Level 9.0mg/dl Carbon Dioxide Level 19mmol/L Chloride Level 102mmol/L Creatinine 0.68mg/dl Direct Bilirubin 0.00mg/dl Eosinophils # 0.010^3/ul Eosinophils % 0.3% Globulin 3.60g/dl Glucose Level 373mg/dl Hematocrit 38.5% Hemoglobin 12.9g/dl INR International Normalized Ratio 1.22 Indirect Bilirubin 0.6mg/dl Lipase 2428U/L Lymphocytes # 0.510^3/ul Lymphocytes % 8.7% Mean Corpuscular Hemoglobin 30.4pg Mean Corpuscular Hemoglobin Concent 33.6g/dl Mean Corpuscular Volume 90.4fl Mean Platelet Volume 10.3fl Monocytes # 0.610^3/ul Monocytes % 10.2% Neutrophils # 4.410^3/ul Neutrophils % 80.0% Nucleated Red Blood Cells # 0.010^3/ul Nucleated Red Blood Cells % 0.0/100WBC Platelet Count 58226^3/UL Potassium Level 4.6mmol/L Prothrombin Time 15.5Sec Prothrombin Time Ratio 1.2 Red Blood Count 4.2610^6/ul Red Cell Distribution Width 16.9% Sodium Level 132mmol/L Total Bilirubin 0.6mg/dl Total Protein 6.5g/dl White Blood Count 5.410^3/ul Current Medications Medications (Trade) Dose Ordered Sig/Lisa Route PRN Reason Start Time Stop Time Status Last Admin Dose Admin Sodium Chloride (NS) 1,000 ml @ 1,000 mls/hr Q1H STAT IV 11/27/16 16:32 11/27/16 17:31 DC Ondansetron HCl (Zofran Inj) 4 mg ONCE STAT IV 11/27/16 16:32 11/27/16 16:35 DC Lidocaine (Xylocaine 1% (Mpf)) 5 ml STK-MED ONCE .ROUTE 11/27/16 17:38 11/27/16 17:39 DC 11/27/16 17:40 Acetaminophen/ Hydrocodone Bitart (Soldier (10/325)) 1 tab ONCE ONCE PO 11/27/16 18:30 11/27/16 18:31 Ondansetron HCl (Zofran Odt) 4 mg ONCE STAT ODT 11/27/16 18:01 11/27/16 18:02 DC Procedures/MDM EKG, MONITORS, & DIAGNOSTIC IMAGING: Large volume therapeutic paracentesis performed by interventional radiology. LAB INTERPRETATION: No significant coagulopathy noted. MEDICAL DECISION MAKING: The patient presents with abdominal ascites likely secondary to cirrhosis. Patient does not exhibit any signs or symptoms concerning for complications of cirrhosis such as GI bleed, hepatic encephalopathy or spontaneous bacterial peritonitis. There is no indication currently for diagnostic paracentesis. The patient will benefit from large volume therapeutic paracentesis by interventional radiology. If the patient remains stable without evidence of hemodynamic compromise secondary to fluid shifts the patient can be safely discharged home with close primary care and hepatology follow-up. ER COURSE: The patient had successful large volume therapeutic paracentesis. The patient remained hemodynamically stable and otherwise well-appearing. The patient is safe for discharge home. The patient was given Soldier and Zofran here in the emergency room. His pain is consistent with chronic pain. No evidence of SBP. The patient is safe for discharge. I kept the patient and/or family informed of laboratory and diagnostic imaging results throughout the emergency room course. DISPOSITION PLAN: We discussed follow up with the patient's primary care doctor within 24 to 48 hours as needed. We also discussed return to the emergency room for worsening symptoms or worsening condition. Discharge Medications: None Departure Diagnosis: Primary Impression: Ascites Ascites type: due to alcoholic cirrhosis Qualified Code: K70.31 - Ascites due to alcoholic cirrhosis Additional Impressions: Cirrhosis Hepatic cirrhosis type: alcoholic cirrhosis Ascites presence: with ascites Qualified Code: K70.31 - Alcoholic cirrhosis of liver with ascites Nausea and vomiting Vomiting type: unspecified Vomiting Intractability: non-intractable Qualified Code: R11.2 - Non-intractable vomiting with nausea, unspecified vomiting type Condition: Stable CLINTON TAMAYO MD Nov 27, 2016 18:07
[2016-11-27] MEDS ORDERED: HYDROmorphONE 1 MG/ML SYG IM STA (18:25)
[2016-11-27] MEDS ORDERED: ONDA4TAB14 PO (18:26)
[2016-11-27] MEDS ORDERED: HYDROCODONE/APAP (10/325) TAB PO ONE (18:30)
[2016-11-27 19:32] VITALS: BP 122/77; PULSE 82; RESP 16; TEMP 97.9
--- NOTE | 2016-11-27 22:32 | RADRPT ---
PROCEDURE: Ultrasound guided paracentesis. CLINICAL INDICATION: Ascites and shortness of breath. COMPARISON: 11/25/2016. TECHNIQUE: The risks, benefits, and alternatives were explained to the patient and/or the patient's family, inc luding but not limited to bleeding, infection, pain, visceral or vascular damage, shock, and . The patient and/or the patient's family understood the risks and the alternatives and wished to pro ceed with the procedure. Informed written consent was obtained. A procedural time out was performed . The patient's name, date of , and procedure to be performed were verified. Utilizing ultrasound guidance, optimal location for entry to the peritoneal cavity was ascertained. The overlying skin was prepped and draped in the usual sterile fashion. Approximately 10 ml of 1% Xylocaine was injected locally for pain control. Using ultrasound guidance, an 8 [place] catheter wa s introduced into the peritoneal cavity in the right lower quadrant without difficulty. FINDINGS: Initial images demonstrate ascites. Approximately 3.8 liters of serous fluid was aspirated and disc arded. The patient tolerated the procedure well without complication. IMPRESSION: 1. Successful ultrasound-guided paracentesis. RPTAT: QQ .Thierno Ventura MD, Date Time Electronically viewed and signed by .Thierno Ventura MD, on 11/27/2016 22:32 .R/
== END 2016-11-27 19:32 | disposition home or self-care (01) ==
LOC: E/R 16:15
DX: K70.31 Alcoholic cirrhosis of liver with ascites (principal); Z87.891 Personal history of nicotine dependence; Z79.84 Long term (current) use of oral hypoglycemic drugs; Z79.4 Long term (current) use of insulin
CPT/HCPCS: 80053; 83690; 85025; 85610; 85730; 96372; J1170; J2405; Z7502; Z7610; J7030

== ENCOUNTER 2016-11-29 10:24 | Emergency (ER) | payer OTHER ==
[~2016-11-29] VITALS: Ht 170.2 cm; Wt 88.6 kg
[2016-11-29 10:29] VITALS: Ht 170.2 cm; Wt 88.6 kg
[2016-11-29] MEDS ORDERED: ONDANSETRON 4 MG INJ IV STA (10:29)
--- NOTE | 2016-11-29 11:01 | RADRPT ---
PROCEDURE: XR Chest 1 View. CLINICAL INDICATION: Abnormal breath sounds, abdominal pain TECHNIQUE: AP view of the chest were obtained. COMPARISON: November 03, 2016 FINDINGS: The heart size is within normal limits. Calcified atherosclerosis is seen in the aorta. The lungs ar e hypoinflated. Elevation right hemidiaphragm is observed. Associated atelectasis/consolidation of the right middle and lower lobes is seen. Subsegmental atelectasis is noted at the left lung base. Osseous structures are intact. IMPRESSION: Calcified atherosclerosis in the aorta. Hypoinflated lungs. Elevation right hemidiaphragm with associated atelectasis/consolidation of the right middle and lowe r lobes. Subsegmental atelectasis at the left lung base. RPTAT: AA .Ector Esteban MD, Date Time Electronically viewed and signed by .Ector Esteban MD, on 11/29/2016 11:01 .P/
[2016-11-29 11:08] LABS: BASOPHILS % 0.1 % (0.0-2.0); EOSINOPHILS % 0.5 % (0.0-7.0); HEMATOCRIT 36.7 % (42.0-52.0); HEMOGLOBIN 12.4 g/dl (14.0-18.0); LYMPHOCYTES # 0.4 10^3/ul (0.8-2.9); LYMPHOCYTES % 7.6 % (15.0-51.0); MEAN CORPUSCULAR HEMOGLOBIN 30.3 pg (29.0-33.0); MEAN CORPUSCULAR HGB CONC 33.8 g/dl (32.0-37.0); MEAN CORPUSCULAR VOLUME 89.8 fl (82.0-101.0); MEAN PLATELET VOLUME 10.3 fl (7.4-10.4); MONOCYTE # 0.6 10^3/ul (0.3-0.9); MONOCYTES % 11.1 % (0.0-11.0); NEUTROPHIL # 4.1 10^3/ul (1.6-7.5); NEUTROPHILS % 80.7 % (39.0-77.0); PLATELET COUNT 122 10^3/UL (140-440); RED BLOOD COUNT 4.09 10^6/ul (4.70-6.10); RED CELL DISTRIBUTION WIDTH 16.4 % (11.5-14.5); UNCORRECTED WBC 5.1 10^3/ul (4.8-10.8); WHITE BLOOD COUNT 5.1 10^3/ul (4.8-10.8)
[2016-11-29 11:16] LABS: INR 1.18; PROTIME 15.1 Sec (12.2-14.2); PT RATIO 1.2
[2016-11-29 11:17] LABS: PARTIAL THROMBOPLASTIN TIME 33.8 Sec (25.0-35.0)
[2016-11-29 11:19] LABS: ALBUMIN 2.7 g/dl (3.3-4.9)
[2016-11-29 11:20] LABS: CHLORIDE 100 mmol/L (97-110); POTASSIUM 4.5 mmol/L (3.5-5.1); SODIUM 133 mmol/L (135-144)
[2016-11-29 11:22] LABS: ALBUMIN/GLOBULIN RATIO 0.79; ALKALINE PHOSPHATASE 180 IU/L (42-121); ANION GAP 15 (8-16); ASPARTATE AMINO TRANSFERASE 56 IU/L (15-46); BILIRUBIN,INDIRECT 0.6 mg/dl (0-1.1); BILIRUBIN,TOTAL 0.6 mg/dl (0.2-1.3); CARBON DIOXIDE 23 mmol/L (21-31); CREATININE 0.73 mg/dl (0.61-1.24); TOTAL PROTEIN 6.1 g/dl (6.1-8.1)
[2016-11-29 11:23] LABS: ALANINE AMINOTRANSFERASE 51 IU/L (13-69); BLOOD UREA NITROGEN 19 mg/dl (7-20); CALCIUM 8.9 mg/dl (8.4-10.2); GLUCOSE 268 mg/dl (70-220)
[2016-11-29] MEDS ORDERED: morphine 2 MG INJ IV ONE (11:30)
[2016-11-29 11:35] LABS: TROPONIN-I < 0.012 ng/ml (0.00-0.12)
[2016-11-29 11:36] LABS: CONDITION 1; LH ANALYZER COMMENTS 1
[2016-11-29 11:48] LABS: ADD UMIC YES; URINE BILIRUBIN (Dip) NEGATIVE (NEGATIVE); URINE BLOOD (Dip) NEGATIVE (NEGATIVE); URINE COLOR LT. YELLOW (YELLOW); URINE GLUCOSE (Dip) >=1000 % (NEGATIVE); URINE KETONES (Dip) NEGATIVE (NEGATIVE); URINE LEUKOCYTE ESTERASE (Dip) 1+ (NEGATIVE); URINE NITRITE (Dip) NEGATIVE (NEGATIVE); URINE TOTAL PROTEIN (Dip) NEGATIVE (NEGATIVE); URINE UROBILINOGEN (Dip) 0.2 E.U./dL (0.1-1.0)
[2016-11-29 12:08] LABS: BACTERIA,URINE MODERATE; URINE RBCS 0-2 /HPF (0)
[2016-11-29] MEDS ORDERED: HYDR-906 PO (12:23)
--- NOTE | 2016-11-29 12:29 | ERD ---
ER Documentation Chief Complaint Date/Time DATE: 11/29/16 TIME: 1024 Chief Complaint nausea and generalized weakness; abdominal distention HPI 56-year-old male well-known to this emergency department for multiple visits secondary to his liver disease presents to the emergency department today complaining of shortness of breath. Patient has had multiple visits for paracentesis his including a recent hospitalization during which time he was reevaluated. Patient states that he has had no significant trouble with his fluid at this point, but has a diffuse, nonspecific, spontaneous abdominal pain. The pain does not radiate and is associated with no fevers chills vomiting or melena. ROS All systems reviewed and are negative except as per history of present illness. Medications Home Meds Active Scripts Hydrocodone/Acetaminophen ([place] 5-325 Tablet) 1 Each Tablet, 1 EACH PO TID, # 14 TAB Prov:SHAWN SANCHEZ 11/29/16 Insulin Aspart* (Novolog Insulin Pen*) 100 Unit/Ml Soln, 10 UNIT SC WITH MEALS BEDTIME for 28 Days Prov:JERZY BENSON MD 08/27/16 Reported Medications Dapagliflozin Propanediol (Farxiga) 10 Mg Tablet, 10 MG PO DAILY, #30 TAB 08/23/16 Insulin Glargine* (Lantus*) 100 Unit/Ml Soln, 35 UNIT SC QHS, #1 VIAL 08/23/16 Losartan Potassium* (Cozaar*) 25 Mg Tablet, 25 MG PO DAILY, #30 TAB 08/23/16 Pantoprazole* (Protonix*) 40 Mg Tablet.dr, 40 MG PO DAILY, TAB 08/23/16 Furosemide* (Furosemide*) 40 Mg Tablet, 40 MG PO DAILY, TAB 08/23/16 Fenofibrate Nanocrystallized* (Fenofibrate*) 145 Mg Tablet, 145 MG PO DAILY, TAB 08/23/16 Zolpidem Tartrate* (Zolpidem Tartrate*) 10 Mg Tablet, 10 MG PO QHS Y for INSOMNIA, #30 TAB 08/23/16 Spironolactone* (Spironolactone*) 100 Mg Tablet, 100 MG PO QAM, TAB 08/23/16 Discontinued Scripts Ondansetron (Ondansetron Odt) 4 Mg Tab.rapdis, 4 MG PO Q6H Y for NAUSEA AND/OR VOMITING, #30 TAB Prov:CLINTON TAMAYO MD 11/27/16 Ondansetron (Ondansetron Odt) 4 Mg Tab.rapdis, 4 MG PO Q6H Y for NAUSEA AND/OR VOMITING, #10 TAB Prov:ANDRIY GARCIA DO 11/19/16 Allergies Allergies: Coded Allergies: No Known Drug Allergy (Verified Allergy, Unknown, 11/29/16) PMhx/Soc History of Surgery: Yes Anesthesia Reaction: No Hx Neurological Disorder: Yes Hx Respiratory Disorders: No Hx Cardiac Disorders: No Hx Psychiatric Problems: No Hx Alcohol Use: No Hx Substance Use: No Hx Tobacco Use: No (Former) Smoking Status: Former smoker FmHx Noncontributory for chief complaint Physical Exam Vitals Vital Signs Date Time Temp Pulse Resp B/P Pulse Ox O2 Delivery O2 Flow Rate FiO2 11/29/16 10:29 98.0 100 18 112/75 99 Physical Exam GENERAL: Patient is a chronically ill-appearing male but in no acute distress HEENT: Pupils equal, round, and reactive to light. EOMI. There is no scleral icterus. NECK: C-spine is soft and supple, there is no meningismus. There is no cervical lymphadenopathy. LUNGS: Clear to auscultation bilaterally. There are no rales, wheezes or rhonchi. HEART: Regular rate and rhythm, no murmurs, clicks, rubs or gallops. ABDOMEN: Soft and distended with evidence of his underlying liver disease. No rebound guarding or peritoneal signs EXTREMITIES: There is no peripheral cyanosis or edema. No focal swelling or erythema. NEURO: The patient moves all four extremities with 5/5 strength. Cranial nerves II - XII are intact. Normal gait. Alert and oriented SKIN: There is no apparent rash or petechiae. HEME/LYMPHATIC: There is no evidence of excessive bruising or lymphedema. PSYCHIATRIC: The patient does not appear anxious or depressed. Result Diagram: 11/29/16 1050 11/29/16 1050 Results 24 hrs Laboratory Tests Test 11/29/16 10:50 11/29/16 11:30 Activated Partial Thromboplast Time 33.8Sec Alanine Aminotransferase (ALT/SGPT) 51IU/L Albumin 2.7g/dl Albumin/Globulin Ratio 0.79 Alkaline Phosphatase 180IU/L Anion Gap 15 Aspartate Amino Transf (AST/SGOT) 56IU/L Basophils # 0.010^3/ul Basophils % 0.1% Blood Morphology Comment Blood Urea Nitrogen 19mg/dl Calcium Level 8.9mg/dl Carbon Dioxide Level 23mmol/L Chloride Level 100mmol/L Creatinine 0.73mg/dl Direct Bilirubin 0.00mg/dl Eosinophils # 0.010^3/ul Eosinophils % 0.5% Globulin 3.40g/dl Glucose Level 268mg/dl Hematocrit 36.7% Hemoglobin 12.4g/dl INR International Normalized Ratio 1.18 Indirect Bilirubin 0.6mg/dl Lipase 164U/L Lymphocytes # 0.410^3/ul Lymphocytes % 7.6% Mean Corpuscular Hemoglobin 30.3pg Mean Corpuscular Hemoglobin Concent 33.8g/dl Mean Corpuscular Volume 89.8fl Mean Platelet Volume 10.3fl Monocytes # 0.610^3/ul Monocytes % 11.1% Neutrophils # 4.110^3/ul Neutrophils % 80.7% Nucleated Red Blood Cells # 0.010^3/ul Nucleated Red Blood Cells % 0.0/100WBC Platelet Count 88337^3/UL Potassium Level 4.5mmol/L Prothrombin Time 15.1Sec Prothrombin Time Ratio 1.2 Red Blood Count 4.0910^6/ul Red Cell Distribution Width 16.4% Sodium Level 133mmol/L Total Bilirubin 0.6mg/dl Total Protein 6.1g/dl Troponin I < 0.012ng/ml White Blood Count 5.110^3/ul Urine Bacteria MODERATE Urine Bilirubin NEGATIVE Urine Clarity CLEAR Urine Color LT. YELLOW Urine Epithelial Cells MODERATE Urine Glucose >=1000% Urine Hemoglobin NEGATIVE Urine Ketones NEGATIVE Urine Leukocyte Esterase 1+ Urine Microscopic RBC 0-2/HPF Urine Microscopic WBC 0-2/HPF Urine Nitrite NEGATIVE Urine Specific [place] 1.015 Urine Total Protein NEGATIVE Urine Urobilinogen 0.2 E.U./dL Urine Yeast MODERATE Urine pH 5.0 Current Medications Medications (Trade) Dose Ordered Sig/Lisa Route PRN Reason Start Time Stop Time Status Last Admin Dose Admin Ondansetron HCl (Zofran Inj) 4 mg ONCE STAT IV 11/29/16 10:29 11/29/16 10:30 DC 11/29/16 10:57 Morphine Sulfate (morphine) 2 mg ONCE ONCE IV 11/29/16 11:30 11/29/16 11:31 DC 11/29/16 11:47 Procedures/MDM Patient was taken to a room, seen and evaluated. Comfort measures were initiated. Diagnostic tests were ordered and reviewed. 3 LEAD RHYTHM STRIP: Normal sinus rhythm without ectopy 12 lead EKG interpreted by myself: Rate/rhythm: Normal sinus rhythm [place]/intervals: Normal Ischemia: Nonspecific ST and T-wave changes with no ST elevation Impression: Nonspecific EKG RADIOLOGY: reviewed with the radiologist CONSULTATION: hospitalist was notified for admission REEVALUATION: Patient remained comfortable after morphine MEDICAL DECISION MAKIN-year-old male with existing history of underlying liver disease presents to the emergency department with abdominal pain consistent with his underlying liver disease. At this time, patient shows no evidence of significant pancreatitis, no evidence of acute infection, no evidence of SBP. Overall, patient appears to be clinically nontoxic and appears to be appropriate for outpatient care at this time. Departure Diagnosis: Primary Impression: Abdominal pain Additional Impression: Cirrhosis Condition: Stable Patient Instructions: Abdominal Pain Referrals: JESSICA LAY (PCP) Additional Instructions: Please see your doctor for ongoing care. Return for any problems or concerns SHAWN SANCHEZ Nov 29, 2016 12:28
[2016-11-29 12:44] VITALS: BP 96/66; PULSE 95; RESP 18; TEMP 98.1
== END 2016-11-29 13:00 | disposition home or self-care (01) ==
LOC: E/R 10:24
DX: R10.9 Unspecified abdominal pain (principal); R11.0 Nausea; K74.60 Unspecified cirrhosis of liver; E11.9 Type 2 diabetes mellitus without complications; Z79.4 Long term (current) use of insulin; Z87.891 Personal history of nicotine dependence
CPT/HCPCS: 36415; 71010; 80053; 81001; 81003; 82140; 83690; 84484; 85025; 85610; 85730; 93005; 96374; 96375; J2270; J2405; Z7502

== ENCOUNTER 2016-12-01 09:22 | Emergency (ER) | payer OTHER ==
[~2016-12-01] VITALS: Wt 72.0 kg
[~2016-12-01 09:22] MED LIST changes: +HYDR-906 PO; -ONDA4TAB14 PO
[2016-12-01] MEDS ORDERED: SOD CHLORIDE 0.9% 500 ML IV STA (10:03)
[2016-12-01] MEDS ORDERED: ONDANSETRON 4 MG INJ IV STA (10:03)
[2016-12-01] MEDS ORDERED: HYDROmorphONE 1 MG/ML SYG IV STA (10:03)
--- NOTE | 2016-12-01 10:26 | ERD ---
ER Documentation Chief Complaint Date/Time DATE: 12/01/16 TIME: 10:23 Chief Complaint ABD DISTENSION/PAIN, PT HERE FOR PARACENTESIS ARSALAN Lozano is a 56-year-old male with a history of alcoholic cirrhosis. The patient presents for paracentesis. The patient describes abdominal distention and pressure. He is also discovering persistent nausea with occasional nonbloody nonbilious emesis, no melena. The patient has multiple presentations to the emergency room. His last paracentesis was approximately 4 days ago. The patient was seen here 2 days ago for shortness of breath and was discharged. The patient is being arranged at [facility] to have a port placed. He states his symptoms are similar to prior episodes requiring paracentesis. He denies any fevers or chills. ROS All systems reviewed and are negative except as per history of present illness. Medications Home Meds Active Scripts Hydrocodone/Acetaminophen ([place] 5-325 Tablet) 1 Each Tablet, 1 EACH PO TID, # 14 TAB Prov:SHAWN SANCHEZ 11/29/16 Insulin Aspart* (Novolog Insulin Pen*) 100 Unit/Ml Soln, 10 UNIT SC WITH MEALS BEDTIME for 28 Days Prov:JERZY BENSON MD 08/27/16 Reported Medications Dapagliflozin Propanediol (Farxiga) 10 Mg Tablet, 10 MG PO DAILY, #30 TAB 08/23/16 Insulin Glargine* (Lantus*) 100 Unit/Ml Soln, 35 UNIT SC QHS, #1 VIAL 08/23/16 Losartan Potassium* (Cozaar*) 25 Mg Tablet, 25 MG PO DAILY, #30 TAB 08/23/16 Pantoprazole* (Protonix*) 40 Mg Tablet.dr, 40 MG PO DAILY, TAB 08/23/16 Furosemide* (Furosemide*) 40 Mg Tablet, 40 MG PO DAILY, TAB 08/23/16 Fenofibrate Nanocrystallized* (Fenofibrate*) 145 Mg Tablet, 145 MG PO DAILY, TAB 08/23/16 Zolpidem Tartrate* (Zolpidem Tartrate*) 10 Mg Tablet, 10 MG PO QHS Y for INSOMNIA, #30 TAB 08/23/16 Spironolactone* (Spironolactone*) 100 Mg Tablet, 100 MG PO QAM, TAB 08/23/16 Discontinued Scripts Ondansetron (Ondansetron Odt) 4 Mg Tab.rapdis, 4 MG PO Q6H Y for NAUSEA AND/OR VOMITING, #30 TAB Prov:CLINTON TAMAYO MD 11/27/16 Ondansetron (Ondansetron Odt) 4 Mg Tab.rapdis, 4 MG PO Q6H Y for NAUSEA AND/OR VOMITING, #10 TAB Prov:ANDRIY GARCIA DO 11/19/16 Allergies Allergies: Coded Allergies: No Known Drug Allergy (Verified Allergy, Unknown, 11/29/16) PMhx/Soc History of Surgery: Yes Anesthesia Reaction: No Hx Neurological Disorder: Yes Hx Respiratory Disorders: No Hx Cardiac Disorders: No Hx Psychiatric Problems: No Hx Alcohol Use: No Hx Substance Use: No Hx Tobacco Use: No (Former) FmHx Family History: No diabetes Physical Exam Vitals Vital Signs Date Time Temp Pulse Resp B/P Pulse Ox O2 Delivery O2 Flow Rate FiO2 12/01/16 09:26 96.8 70 18 102/73 97 Physical Exam General: Cachectic with stigmata of liver disease Head: Normocephalic, atraumatic. Eyes: Pupils equally reactive, EOM intact ENT: Moist mucous membranes Neck: Supple, no lymphadenopathy Respiratory: Lungs clear bilaterally, no distress Cardiovascular: RRR, no murmurs, rubs, or gallops Abdominal: Soft, protuberant with fluid wave, nontender, no pulsatile mass : Deferred MSK: No edema, no unilateral swelling, 5/5 strength Neurologic: Alert and oriented, moving all extremities, normal speech, no focal weakness, no cerebellar signs Skin: No rash Psych: Normal mood Result Diagram: 12/01/16 1015 12/01/16 1015 Results 24 hrs Laboratory Tests Test 12/01/16 10:15 12/01/16 10:28 Activated Partial Thromboplast Time 33.7Sec Alanine Aminotransferase (ALT/SGPT) 49IU/L Albumin 2.8g/dl Albumin/Globulin Ratio 0.84 Alkaline Phosphatase 188IU/L Anion Gap 14 Aspartate Amino Transf (AST/SGOT) 56IU/L Basophils # 0.010^3/ul Basophils % 0.5% Blood Morphology Comment Blood Urea Nitrogen 19mg/dl Calcium Level 8.6mg/dl Carbon Dioxide Level 25mmol/L Chloride Level 99mmol/L Creatinine 0.76mg/dl Direct Bilirubin 0.00mg/dl Eosinophils # 0.110^3/ul Eosinophils % 1.2% Globulin 3.30g/dl Glucose Level 204mg/dl Hematocrit 37.3% Hemoglobin 12.6g/dl INR International Normalized Ratio 1.16 Indirect Bilirubin 0.5mg/dl Lipase 40U/L Lymphocytes # 0.510^3/ul Lymphocytes % 11.1% Mean Corpuscular Hemoglobin 30.5pg Mean Corpuscular Hemoglobin Concent 33.9g/dl Mean Corpuscular Volume 90.0fl Mean Platelet Volume 10.6fl Monocytes # 0.510^3/ul Monocytes % 10.4% Neutrophils # 3.710^3/ul Neutrophils % 76.8% Nucleated Red Blood Cells # 0.010^3/ul Nucleated Red Blood Cells % 0.0/100WBC Platelet Count 46351^3/UL Potassium Level 4.4mmol/L Prothrombin Time 14.9Sec Prothrombin Time Ratio 1.2 Red Blood Count 4.1510^6/ul Red Cell Distribution Width 16.5% Sodium Level 134mmol/L Total Bilirubin 0.5mg/dl Total Protein 6.1g/dl White Blood Count 4.910^3/ul Bedside Glucose 204mg/dL Current Medications Medications (Trade) Dose Ordered Sig/Lisa Route PRN Reason Start Time Stop Time Status Last Admin Dose Admin Sodium Chloride (NS) 500 ml @ 500 mls/hr Q1H STAT IV 12/01/16 10:03 12/01/16 11:02 DC 12/01/16 10:30 Hydromorphone HCl (Dilaudid) 0.5 mg ONCE STAT IV 12/01/16 10:03 12/01/16 10:05 DC 12/01/16 10:25 Ondansetron HCl (Zofran Inj) 4 mg ONCE STAT IV 12/01/16 10:03 12/01/16 10:05 DC 12/01/16 10:25 Lidocaine (Xylocaine 1% (Mpf)) 5 ml STK-MED ONCE .ROUTE 12/01/16 11:51 12/01/16 11:52 DC Procedures/MDM EKG, MONITORS, & DIAGNOSTIC IMAGING: Large volume therapeutic paracentesis performed by interventional radiology. LAB INTERPRETATION: No significant coagulopathy noted. MEDICAL DECISION MAKING: The patient presents with abdominal ascites likely secondary to cirrhosis. Patient does not exhibit any signs or symptoms concerning for complications of cirrhosis such as GI bleed, hepatic encephalopathy or spontaneous bacterial peritonitis. There is no indication currently for diagnostic paracentesis. The patient will benefit from large volume therapeutic paracentesis by interventional radiology. If the patient remains stable without evidence of hemodynamic compromise secondary to fluid shifts the patient can be safely discharged home with close primary care and hepatology follow-up. The patient does not have evidence of complication. He has no evidence of spontaneous bacterial peritonitis. The patient seems to be deteriorating. I believe this is consistent with end-stage cirrhosis. Further conversation with primary care physician and forepart rounder may be necessary, consideration for hospice as well. The patient is having more frequent visits to the emergency room and more persistent symptoms. I offered hospitalization but the patient refused he states that he would like to go home. ER COURSE: The patient had successful large volume therapeutic paracentesis. The patient remained hemodynamically stable and otherwise well-appearing. The patient is safe for discharge home. I kept the patient and/or family informed of laboratory and diagnostic imaging results throughout the emergency room course. DISPOSITION PLAN: We discussed follow up with the patient's primary care doctor within 24 to 48 hours as needed. We also discussed return to the emergency room for worsening symptoms or worsening condition. Discharge Medications: None Departure Diagnosis: Primary Impression: Ascites Ascites type: due to alcoholic cirrhosis Qualified Code: K70.31 - Ascites due to alcoholic cirrhosis Condition: Stable CLINTON TAMAYO MD Dec 01, 2016 10:26
[2016-12-01 10:46] LABS: ALBUMIN 2.8 g/dl (3.3-4.9)
[2016-12-01 10:47] LABS: BASOPHILS % 0.5 % (0.0-2.0); EOSINOPHILS # 0.1 10^3/ul (0.0-0.5); EOSINOPHILS % 1.2 % (0.0-7.0); HEMATOCRIT 37.3 % (42.0-52.0); HEMOGLOBIN 12.6 g/dl (14.0-18.0); LYMPHOCYTES # 0.5 10^3/ul (0.8-2.9); LYMPHOCYTES % 11.1 % (15.0-51.0); MEAN CORPUSCULAR HEMOGLOBIN 30.5 pg (29.0-33.0); MEAN CORPUSCULAR HGB CONC 33.9 g/dl (32.0-37.0); MEAN PLATELET VOLUME 10.6 fl (7.4-10.4); MONOCYTE # 0.5 10^3/ul (0.3-0.9); MONOCYTES % 10.4 % (0.0-11.0); NEUTROPHIL # 3.7 10^3/ul (1.6-7.5); NEUTROPHILS % 76.8 % (39.0-77.0); PLATELET COUNT 143 10^3/UL (140-440); POTASSIUM 4.4 mmol/L (3.5-5.1); RED BLOOD COUNT 4.15 10^6/ul (4.70-6.10); RED CELL DISTRIBUTION WIDTH 16.5 % (11.5-14.5); UNCORRECTED WBC 4.9 10^3/ul (4.8-10.8); WHITE BLOOD COUNT 4.9 10^3/ul (4.8-10.8)
[2016-12-01 10:49] LABS: ALBUMIN/GLOBULIN RATIO 0.84; BILIRUBIN,INDIRECT 0.5 mg/dl (0-1.1); BILIRUBIN,TOTAL 0.5 mg/dl (0.2-1.3); CREATININE 0.76 mg/dl (0.61-1.24); TOTAL PROTEIN 6.1 g/dl (6.1-8.1)
[2016-12-01 10:50] LABS: CALCIUM 8.6 mg/dl (8.4-10.2)
[2016-12-01 10:51] LABS: INR 1.16; PROTIME 14.9 Sec (12.2-14.2); PT RATIO 1.2
[2016-12-01 10:52] LABS: PARTIAL THROMBOPLASTIN TIME 33.7 Sec (25.0-35.0)
[2016-12-01 11:00] LABS: CONDITION 1; LH ANALYZER COMMENTS 1
[2016-12-01] MEDS ORDERED: LIDOCAINE 1% (MPF) 5 ML VIAL ONE (11:51)
--- NOTE | 2016-12-01 11:55 | RADRPT ---
PROCEDURE: Ultrasound guided paracentesis CLINICAL INDICATION: Ascites TECHNIQUE: The risks benefits and alternatives of the procedure were explained to the patient. In formed written consent was obtained. A time out was performed. The patient understood the risks be nefits and alternatives and wished to proceed with the procedure. COMPARISON: None available. FINDINGS: A time out was performed. The overlying skin of the right lower quadrant of the abdomen was prepped and draped in the usual sterile fashion. Approximately 10 cc of Xylocaine was injected locally for pain control. Utilizing ultrasound guidance, a skinny 5-[place] Yueh catheter was placed into the p eritoneal cavity without difficulty. The patient tolerated the procedure well without complication. Approximately 6550 cc of clear yellow fluid was obtained. The fluid was not sent to the lab for f urther analysis. IMPRESSION: 1. Successful ultrasound-guided paracentesis. RPTAT: QQ .Adams Caraballo MD, Date Time Electronically viewed and signed by .Adams Caraballo MD, on 12/01/2016 11:54 .N/
[2016-12-01 12:28] VITALS: BP 93/70; PULSE 77; RESP 18; TEMP 98.2
== END 2016-12-01 12:30 | disposition home or self-care (01) ==
LOC: E/R 09:22
DX: K70.31 Alcoholic cirrhosis of liver with ascites (principal); R11.2 Nausea with vomiting, unspecified; I10 Essential (primary) hypertension; E11.9 Type 2 diabetes mellitus without complications; Z79.4 Long term (current) use of insulin; Z87.891 Personal history of nicotine dependence
CPT/HCPCS: 36415; 80053; 82962; 83690; 85025; 85610; 85730; 96374; 96375; J1170; J2405; J7040; Z7502; Z7610

== ENCOUNTER 2016-12-04 10:30 | Emergency (ER) | payer OTHER ==
[~2016-12-04] VITALS: Wt 71.2 kg
[2016-12-04] MEDS ORDERED: morphine 4 MG/ML VIAL IV STA (11:05)
[2016-12-04] MEDS ORDERED: ONDANSETRON 4 MG INJ IV STA (11:05)
[2016-12-04] MEDS ORDERED: SOD CHLORIDE 0.9% 1,000 ML IV STA (11:05)
[2016-12-04] MEDS ORDERED: ALBUMIN HUMAN 25% 50 ML IV ONE (11:30)
--- NOTE | 2016-12-04 12:32 | ERD ---
ER Documentation Chief Complaint Date/Time DATE: 12/04/16 TIME: 12:24 Chief Complaint abdominal pain and distention for 3 days. needs parecenthesis HPI This is a 56-year-old male with a known history of liver cirrhosis and ascites. The patient presents to the emergency department complaining of abdominal distention that progressively worsened since his last paracentesis, 3 days prior to arrival. He indicated that 6 L of fluid was removed. Contrary to the triage note the patient is not experiencing abdominal pain but states he is having generalized myalgias. He denies any back pain. He has had no fevers no shaking or chills. He denies any hemoptysis or hematemesis. He states the generalized myalgias that he is experiencing is similar nature to when he requires previous paracentesis. Therefore he presents to the emergency department with his stating that he would like a therapeutic paracentesis. He has no chest pain or pressure that radiates to the neck arm back or jaw ROS All systems reviewed and are negative except as per history of present illness. Medications Home Meds Active Scripts Hydrocodone/Acetaminophen ([place] 5-325 Tablet) 1 Each Tablet, 1 EACH PO TID, # 14 TAB Prov:SHAWN SANCHEZ 11/29/16 Insulin Aspart* (Novolog Insulin Pen*) 100 Unit/Ml Soln, 10 UNIT SC WITH MEALS BEDTIME for 28 Days Prov:JERZY BENSON MD 08/27/16 Reported Medications Dapagliflozin Propanediol (Farxiga) 10 Mg Tablet, 10 MG PO DAILY, #30 TAB 08/23/16 Insulin Glargine* (Lantus*) 100 Unit/Ml Soln, 35 UNIT SC QHS, #1 VIAL 08/23/16 Losartan Potassium* (Cozaar*) 25 Mg Tablet, 25 MG PO DAILY, #30 TAB 08/23/16 Pantoprazole* (Protonix*) 40 Mg Tablet.dr, 40 MG PO DAILY, TAB 08/23/16 Furosemide* (Furosemide*) 40 Mg Tablet, 40 MG PO DAILY, TAB 08/23/16 Fenofibrate Nanocrystallized* (Fenofibrate*) 145 Mg Tablet, 145 MG PO DAILY, TAB 08/23/16 Zolpidem Tartrate* (Zolpidem Tartrate*) 10 Mg Tablet, 10 MG PO QHS Y for INSOMNIA, #30 TAB 08/23/16 Spironolactone* (Spironolactone*) 100 Mg Tablet, 100 MG PO QAM, TAB 08/23/16 Discontinued Scripts Ondansetron (Ondansetron Odt) 4 Mg Tab.rapdis, 4 MG PO Q6H Y for NAUSEA AND/OR VOMITING, #30 TAB Prov:CLINTON TAMAYO MD 11/27/16 Ondansetron (Ondansetron Odt) 4 Mg Tab.rapdis, 4 MG PO Q6H Y for NAUSEA AND/OR VOMITING, #10 TAB Prov:ANDRIY GARCIA DO 11/19/16 Allergies Allergies: Coded Allergies: No Known Drug Allergy (Verified Allergy, Unknown, 11/29/16) PMhx/Soc History of Surgery: Yes Anesthesia Reaction: No Hx Neurological Disorder: Yes (NEUROPATHY) Hx Respiratory Disorders: No Hx Cardiac Disorders: Yes (HTN) Hx Psychiatric Problems: No Hx Miscellaneous Medical Probl: Yes (Ascites, DM, LIVER DISEASE, CHRONIC PANCREATITIS) Hx Alcohol Use: No Hx Substance Use: No Hx Tobacco Use: No (Former) Smoking Status: Former smoker Physical Exam Vitals Vital Signs Date Time Temp Pulse Resp B/P Pulse Ox O2 Delivery O2 Flow Rate FiO2 12/04/16 13:28 60 18 117/69 95 Room Air 12/04/16 10:32 98.3 95 21 99/67 94 Physical Exam Constitutional:Well-developed. Well-nourished. HEENT:Normocephalic. Atraumatic.Pupils were equal round reactive to light. Dry mucous membranes.No tonsillar exudates. Neck: No nuchal rigidity. No lymphadenopathy. No posterior cervical spine tenderness or step-offs. Respiratory: Not using accessory muscles of respiration.Lungs were clear to auscultation bilaterally. No rhonchi. No rales. No wheezing. Cardiovascular: Regular rate regular rhythm.No murmurs. No rubs were appreciated.S1, S2 normal. Distal pulses are palpable 2+ bilaterally. GI: Abdomen was soft. Nontender. Tense ascites with positive fluid thrill. No pulsatile abdominal masses or bruits. No rebound. No guarding. Bowel sounds were present and normal. Muscle skeletal: Full range of motion of both the upper and lower extremities bilaterally.Normal muscle tone.No assymetrical calf tenderness or swelling. Skin: No petechia, no purpura. No lesions on the palms or the soles of the feet. No maculopapular rash. NEURO: Patient was alert, awake, orientated x3.No facial droop. Gait observed and normal with no ataxia.Speech had regular rate and rhythm. No focal neurological deficits. Result Diagram: 12/04/16 1248 12/04/16 1248 Results 24 hrs Laboratory Tests Test 12/04/16 12:48 Activated Partial Thromboplast Time 29.2Sec Alanine Aminotransferase (ALT/SGPT) 51IU/L Albumin 2.9g/dl Albumin/Globulin Ratio 0.82 Alkaline Phosphatase 200IU/L Ammonia 92umol/l Anion Gap 15 Aspartate Amino Transf (AST/SGOT) 64IU/L Basophils # 0.110^3/ul Basophils % 1.1% Blood Morphology Comment Blood Urea Nitrogen 16mg/dl Calcium Level 8.5mg/dl Carbon Dioxide Level 20mmol/L Chloride Level 101mmol/L Creatinine 0.69mg/dl Direct Bilirubin 0.00mg/dl Eosinophils # 0.110^3/ul Eosinophils % 1.5% Globulin 3.50g/dl Glucose Level 107mg/dl Hematocrit 37.9% Hemoglobin 12.9g/dl INR International Normalized Ratio 1.17 Indirect Bilirubin 0.8mg/dl Lymphocytes # 0.710^3/ul Lymphocytes % 10.6% Mean Corpuscular Hemoglobin 30.4pg Mean Corpuscular Hemoglobin Concent 34.1g/dl Mean Corpuscular Volume 89.3fl Mean Platelet Volume 10.7fl Monocytes # 0.710^3/ul Monocytes % 11.3% Neutrophils # 4.910^3/ul Neutrophils % 75.5% Nucleated Red Blood Cells # 0.010^3/ul Nucleated Red Blood Cells % 0.0/100WBC Platelet Count 09645^3/UL Potassium Level 4.1mmol/L Prothrombin Time 15.0Sec Prothrombin Time Ratio 1.2 Red Blood Count 4.2410^6/ul Red Cell Distribution Width 16.6% Sodium Level 132mmol/L Total Bilirubin 0.8mg/dl Total Protein 6.4g/dl White Blood Count 6.510^3/ul Current Medications Medications (Trade) Dose Ordered Sig/Lisa Route PRN Reason Start Time Stop Time Status Last Admin Dose Admin Morphine Sulfate (morphine) 4 mg ONCE STAT IV 12/04/16 11:05 12/04/16 11:07 DC 12/04/16 11:05 Ondansetron HCl 4 mg 4 mg ONCE STAT IV 12/04/16 11:05 12/04/16 11:07 DC 12/04/16 11:05 Albumin Human 50 ml @ 100 mls/hr ONCE ONCE IV 12/04/16 11:30 12/04/16 11:59 DC 12/04/16 11:30 Sodium Chloride (NS) 1,000 ml @ 1,000 mls/hr Q1H STAT IV 12/04/16 11:05 12/04/16 12:04 DC Lidocaine (Xylocaine 1% (Mpf)) 5 ml STK-MED ONCE .ROUTE 12/04/16 12:46 12/04/16 12:47 DC Procedures/MDM This patient presented to the emergency department with abdominal distention and worsening ascites over the past 3 days. The patient was hypotensive with a blood pressure of 99/67 however when reviewing previous records this is the patient's baseline. He did appear to have clinical dehydration therefore IV access was established and the patient was given a liter bolus of 0.9 normal saline. Using the patient ancillary laboratory work from 3 days prior to arrival, indicating he was not coagulopathic, an ultrasound-guided paracentesis , performed by the radiologist, was done on today's visit. The patient had no physical exam findings to suggest spontaneous bacterial peritonitis and therefore this was a therapeutic paracentesis. The patient was given albumin intravenously after the paracentesis and 2 L of fluid was removed. The patient's ammonia level was elevated at 92 and he did receive lactulose. Observation Note: Time: 5 hours Family Hx: No Hypertension Evaluation: Multiple exams showed improving symptoms and no evidence of hepatic encephalopathy. The patient was now alert awake orientated 3, his blood pressure had improved and he felt comfortable being discharged home. Departure Diagnosis: Primary Impression: Ascites of liver Additional Impression: Hyperammonemia Condition: BEBO Chen Dec 04, 2016 12:32
[2016-12-04] MEDS ORDERED: LIDOCAINE 1% (MPF) 5 ML VIAL ONE (12:46)
[2016-12-04 13:28] VITALS: BP 117/69; PULSE 60; RESP 18
[2016-12-04 13:32] LABS: ALBUMIN 2.9 g/dl (3.3-4.9); POTASSIUM 4.1 mmol/L (3.5-5.1)
[2016-12-04 13:33] LABS: INR 1.17; PT RATIO 1.2
[2016-12-04 13:34] LABS: CREATININE 0.69 mg/dl (0.61-1.24); PARTIAL THROMBOPLASTIN TIME 29.2 Sec (25.0-35.0)
[2016-12-04 13:35] LABS: ALBUMIN/GLOBULIN RATIO 0.82; BILIRUBIN,INDIRECT 0.8 mg/dl (0-1.1); BILIRUBIN,TOTAL 0.8 mg/dl (0.2-1.3); CALCIUM 8.5 mg/dl (8.4-10.2); TOTAL PROTEIN 6.4 g/dl (6.1-8.1)
--- NOTE | 2016-12-04 13:35 | RADRPT ---
PROCEDURE: Ultrasound guided paracentesis. CLINICAL INDICATION: Ascites and shortness of breath. COMPARISON: 12/01/2016. TECHNIQUE: The risks, benefits, and alternatives were explained to the patient and/or the patient's family, inc luding but not limited to bleeding, infection, pain, visceral or vascular damage, shock, and . The patient and/or the patient's family understood the risks and the alternatives and wished to pro ceed with the procedure. Informed written consent was obtained. A procedural time out was performed . The patient's name, date of , and procedure to be performed were verified. Utilizing ultrasound guidance, optimal location for entry to the peritoneal cavity was ascertained. The overlying skin was prepped and draped in the usual sterile fashion. Approximately 10 ml of 1% Xylocaine was injected locally for pain control. Using ultrasound guidance, an 8 Irish catheter wa s introduced into the peritoneal cavity in the right lower quadrant without difficulty. FINDINGS: Initial images demonstrate ascites. Approximately 2.0 liters of serous fluid was aspirated and disc arded. The patient tolerated the procedure well without complication. IMPRESSION: 1. Successful ultrasound-guided paracentesis. RPTAT: QQ .Thierno Ventura MD, Date Time Electronically viewed and signed by .Thierno Ventuar MD, on 12/04/2016 13:34 .R/
[2016-12-04 13:47] LABS: BASOPHIL # 0.1 10^3/ul (0.0-0.1); BASOPHILS % 1.1 % (0.0-2.0); EOSINOPHILS # 0.1 10^3/ul (0.0-0.5); EOSINOPHILS % 1.5 % (0.0-7.0); HEMATOCRIT 37.9 % (42.0-52.0); HEMOGLOBIN 12.9 g/dl (14.0-18.0); LYMPHOCYTES # 0.7 10^3/ul (0.8-2.9); LYMPHOCYTES % 10.6 % (15.0-51.0); MEAN CORPUSCULAR HEMOGLOBIN 30.4 pg (29.0-33.0); MEAN CORPUSCULAR HGB CONC 34.1 g/dl (32.0-37.0); MEAN CORPUSCULAR VOLUME 89.3 fl (82.0-101.0); MEAN PLATELET VOLUME 10.7 fl (7.4-10.4); MONOCYTE # 0.7 10^3/ul (0.3-0.9); MONOCYTES % 11.3 % (0.0-11.0); NEUTROPHIL # 4.9 10^3/ul (1.6-7.5); NEUTROPHILS % 75.5 % (39.0-77.0); PLATELET COUNT 151 10^3/UL (140-440); RED BLOOD COUNT 4.24 10^6/ul (4.70-6.10); RED CELL DISTRIBUTION WIDTH 16.6 % (11.5-14.5); UNCORRECTED WBC 6.5 10^3/ul (4.8-10.8); WHITE BLOOD COUNT 6.5 10^3/ul (4.8-10.8)
[2016-12-04 13:48] LABS: CONDITION 1; LH ANALYZER COMMENTS 1
[2016-12-04] MEDS ORDERED: LACTULOSE 30ML CUP PO ONE (15:30)
== END 2016-12-04 16:57 | disposition home or self-care (01) ==
LOC: E/R 10:30
DX: R18.8 Other ascites (principal); I10 Essential (primary) hypertension; E11.9 Type 2 diabetes mellitus without complications; E72.20 Disorder of urea cycle metabolism, unspecified; R06.02 Shortness of breath; Z87.891 Personal history of nicotine dependence; Z79.4 Long term (current) use of insulin
CPT/HCPCS: 80053; 82140; 85025; 85610; 85730; 96374; 96375; J2270; J2405; J7030; P9047; Z7502; Z7610

== ENCOUNTER 2016-12-09 09:03 | Emergency (ER) | payer OTHER ==
[~2016-12-09] VITALS: Wt 75.6 kg
[2016-12-09] MEDS ORDERED: ONDANSETRON (ODT) 4 MG TAB ODT STA (10:08)
--- NOTE | 2016-12-09 13:21 | ERD ---
ER Documentation Chief Complaint Date/Time DATE: 12/09/16 TIME: 13:19 Chief Complaint ABD DISTENTION HERE FOR PARACENTHESIS. HPI Patient is a 56-year-old male with ascites and liver failure who presents for a paracentesis. He has abdominal distention. He gets a paracentesis approximately every 3 days. He is well-known to myself and to our staff for similar type presentations. He denies fevers. He has had nausea over the past few days. ROS All systems reviewed and are negative except as per history of present illness. Medications Home Meds Active Scripts Hydrocodone/Acetaminophen ([place]yx 5-325 Tablet) 1 Each Tablet, 1 EACH PO TID, # 14 TAB Prov:SHAWN SANCHEZ 11/29/16 Insulin Aspart* (Novolog Insulin Pen*) 100 Unit/Ml Soln, 10 UNIT SC WITH MEALS BEDTIME for 28 Days Prov:JERZY BENSON MD 08/27/16 Reported Medications Dapagliflozin Propanediol (Farxiga) 10 Mg Tablet, 10 MG PO DAILY, #30 TAB 08/23/16 Insulin Glargine* (Lantus*) 100 Unit/Ml Soln, 35 UNIT SC QHS, #1 VIAL 08/23/16 Losartan Potassium* (Cozaar*) 25 Mg Tablet, 25 MG PO DAILY, #30 TAB 08/23/16 Pantoprazole* (Protonix*) 40 Mg Tablet.dr, 40 MG PO DAILY, TAB 08/23/16 Furosemide* (Furosemide*) 40 Mg Tablet, 40 MG PO DAILY, TAB 08/23/16 Fenofibrate Nanocrystallized* (Fenofibrate*) 145 Mg Tablet, 145 MG PO DAILY, TAB 08/23/16 Zolpidem Tartrate* (Zolpidem Tartrate*) 10 Mg Tablet, 10 MG PO QHS Y for INSOMNIA, #30 TAB 08/23/16 Spironolactone* (Spironolactone*) 100 Mg Tablet, 100 MG PO QAM, TAB 08/23/16 Allergies Allergies: Coded Allergies: No Known Drug Allergy (Verified Allergy, Unknown, 11/29/16) PMhx/Soc History of Surgery: Yes Anesthesia Reaction: No Hx Neurological Disorder: Yes (NEUROPATHY) Hx Respiratory Disorders: No Hx Cardiac Disorders: Yes (HTN) Hx Psychiatric Problems: No Hx Miscellaneous Medical Probl: Yes (Ascites, DM, LIVER DISEASE, CHRONIC PANCREATITIS) Hx Alcohol Use: No Hx Substance Use: No Hx Tobacco Use: No (Former) Smoking Status: Former smoker FmHx Family History: No diabetes Physical Exam Vitals Vital Signs Date Time Temp Pulse Resp B/P Pulse Ox O2 Delivery O2 Flow Rate FiO2 12/09/16 09:07 98.0 102 20 98/65 99 Physical Exam Const: No acute distress Head: Atraumatic Eyes: Normal Conjunctiva ENT: Normal External Ears, Nose and Mouth. Neck: Full range of motion..~ No meningismus. Resp: Clear to auscultation bilaterally Cardio: Regular rate and rhythm, no murmurs Abd: Distended abdomen Skin: No petechiae or rashes Back: No midline or flank tenderness Ext: No cyanosis, or edema Neur: Awake and alert Psych: Normal Mood and Affect Results 24 hrs Current Medications Medications (Trade) Dose Ordered Sig/Lisa Route PRN Reason Start Time Stop Time Status Last Admin Dose Admin Ondansetron HCl (Zofran Odt) 4 mg ONCE STAT ODT 12/09/16 10:08 12/09/16 10:09 DC 12/09/16 10:29 Procedures/MDM Ultrasound-guided paracentesis will be performed by radiology. Patient is a 56-year-old male who presents with acute ascites. He gets frequent paracentesis. He will have a paracentesis done today. Laboratory studies done just a few days ago were normal and we do not need to repeat these. The patient will be discharged home after his paracentesis. At this point I doubt spontaneous bacterial peritonitis. The patient will need to follow-up with his primary doctor. Departure Diagnosis: Primary Impression: Ascites Ascites type: other type Qualified Code: R18.8 - Other ascites Additional Impression: Abdominal pain Abdominal location: generalized Qualified Code: R10.84 - Generalized abdominal pain Condition: Fair Patient Instructions: Ascites Additional Instructions: Call your primary care doctor TOMORROW for an appointment during the next 1-2 days.See the doctor sooner or return here if your condition worsens before your appointment time. ALESIA CLAROS MD Dec 09, 2016 13:21
[2016-12-09] MEDS ORDERED: LIDOCAINE 1% (MPF) 5 ML VIAL ONE (14:10)
[2016-12-09 15:33] VITALS: BP 110/79; PULSE 102; RESP 18; TEMP 97.9
--- NOTE | 2016-12-09 16:13 | RADRPT ---
PROCEDURE: Ultrasound guided paracentesis. CLINICAL INDICATION: Ascites and shortness of breath. COMPARISON: 12/04/2016. TECHNIQUE: The risks, benefits, and alternatives were explained to the patient and/or the patient's family, inc luding but not limited to bleeding, infection, pain, visceral or vascular damage, shock, and . The patient and/or the patient's family understood the risks and the alternatives and wished to pro ceed with the procedure. Informed written consent was obtained. A procedural time out was performed . The patient's name, date of , and procedure to be performed were verified. Utilizing ultrasound guidance, optimal location for entry to the peritoneal cavity was ascertained. The overlying skin was prepped and draped in the usual sterile fashion. Approximately 10 ml of 1% Xylocaine was injected locally for pain control. Using ultrasound guidance, an 8 Barbadian catheter wa s introduced into the peritoneal cavity in the right lower quadrant without difficulty. FINDINGS: Initial images demonstrate ascites. Approximately 8.5 liters of serous fluid was aspirated and disc arded. The patient tolerated the procedure well without complication. IMPRESSION: 1. Successful ultrasound-guided paracentesis. RPTAT: QQ .Thierno Ventura MD, Date Time Electronically viewed and signed by .Thierno Ventura MD, on 12/09/2016 16:12 .R/
== END 2016-12-09 15:34 | disposition home or self-care (01) ==
LOC: E/R 09:03
DX: R18.8 Other ascites (principal); R10.84 Generalized abdominal pain; I10 Essential (primary) hypertension; E11.9 Type 2 diabetes mellitus without complications; R11.0 Nausea; Z79.4 Long term (current) use of insulin; Z79.84 Long term (current) use of oral hypoglycemic drugs; Z87.891 Personal history of nicotine dependence
CPT/HCPCS: Z7502; Z7610

== ENCOUNTER 2016-12-29 10:53 | Emergency (ER) | payer OTHER ==
[~2016-12-29] VITALS: Wt 80.0 kg
[2016-12-29 13:28] LABS: ADD SCAN DIFF NO
--- NOTE | 2016-12-29 13:28 | ERD ---
ER Documentation Chief Complaint Date/Time DATE: 12/29/16 TIME: 13:27 Chief Complaint PARACENTISIS HPI 56-year-old male history of alcoholic cirrhosis who presents to the emergency room complaining of need for paracentesis. The patient had a last paracentesis approximately 4-5 days ago. He does describe some mild leaking from the paracentesis site on the anterior abdomen but no fevers or chills. He describes abdominal distention but no pain. ROS All systems reviewed and are negative except as per history of present illness. Medications Home Meds Active Scripts Hydrocodone/Acetaminophen ([place]igma 5-325 Tablet) 1 Each Tablet, 1 EACH PO TID, # 14 TAB Prov:SHAWN SANCHEZ 11/29/16 Insulin Aspart* (Novolog Insulin Pen*) 100 Unit/Ml Soln, 10 UNIT SC WITH MEALS BEDTIME for 28 Days Prov:JERZY BENSON MD 08/27/16 Reported Medications Dapagliflozin Propanediol (Farxiga) 10 Mg Tablet, 10 MG PO DAILY, #30 TAB 08/23/16 Insulin Glargine* (Lantus*) 100 Unit/Ml Soln, 35 UNIT SC QHS, #1 VIAL 08/23/16 Losartan Potassium* (Cozaar*) 25 Mg Tablet, 25 MG PO DAILY, #30 TAB 08/23/16 Pantoprazole* (Protonix*) 40 Mg Tablet.dr, 40 MG PO DAILY, TAB 08/23/16 Furosemide* (Furosemide*) 40 Mg Tablet, 40 MG PO DAILY, TAB 08/23/16 Fenofibrate Nanocrystallized* (Fenofibrate*) 145 Mg Tablet, 145 MG PO DAILY, TAB 08/23/16 Zolpidem Tartrate* (Zolpidem Tartrate*) 10 Mg Tablet, 10 MG PO QHS Y for INSOMNIA, #30 TAB 08/23/16 Spironolactone* (Spironolactone*) 100 Mg Tablet, 100 MG PO QAM, TAB 08/23/16 Allergies Allergies: Coded Allergies: No Known Drug Allergy (Verified Allergy, Unknown, 11/29/16) PMhx/Soc History of Surgery: Yes Anesthesia Reaction: No Hx Neurological Disorder: Yes (NEUROPATHY) Hx Respiratory Disorders: No Hx Cardiac Disorders: Yes (HTN) Hx Psychiatric Problems: No Hx Miscellaneous Medical Probl: Yes (Ascites, DM, LIVER DISEASE, CHRONIC PANCREATITIS) Hx Alcohol Use: No Hx Substance Use: No Hx Tobacco Use: No (Former) FmHx Family History: No diabetes Physical Exam Vitals Vital Signs Date Time Temp Pulse Resp B/P Pulse Ox O2 Delivery O2 Flow Rate FiO2 12/29/16 10:56 98.2 70 18 102/52 99 Physical Exam General: Well developed, well nourished, no acute distress Head: Normocephalic, atraumatic. Eyes: Pupils equally reactive, EOM intact ENT: Moist mucous membranes Neck: Supple, no lymphadenopathy Respiratory: Lungs clear bilaterally, no distress Cardiovascular: RRR, no murmurs, rubs, or gallops Abdominal: Soft, protuberant with fluid wave, very mild skin breakdown, no leaking, no peritonitis : Deferred MSK: No edema, no unilateral swelling, 5/5 strength Neurologic: Alert and oriented, moving all extremities, normal speech, no focal weakness, no cerebellar signs Skin: No rash Psych: Normal mood Result Diagram: 12/29/16 1259 12/29/16 1259 Results 24 hrs Laboratory Tests Test 12/29/16 12:59 Activated Partial Thromboplast Time 39.0Sec Alanine Aminotransferase (ALT/SGPT) 29IU/L Albumin 4.4g/dl Albumin/Globulin Ratio 2.00 Alkaline Phosphatase 73IU/L Anion Gap 21 Anisocytosis 1+ Aspartate Amino Transf (AST/SGOT) 48IU/L Blood Urea Nitrogen 29mg/dl Calcium Level 9.4mg/dl Carbon Dioxide Level 24mmol/L Chloride Level 101mmol/L Creatinine 1.25mg/dl Direct Bilirubin 0.00mg/dl Eosinophils # 0.310^3/ul Eosinophils % 6.0% Globulin 2.20g/dl Glucose Level 224mg/dl Hematocrit 32.6% Hemoglobin 10.3g/dl Hypochromasia 1+ INR International Normalized Ratio 1.90 Indirect Bilirubin 1.1mg/dl Lymphocytes # 0.510^3/ul Lymphocytes % 11.0% Mean Corpuscular Hemoglobin 29.7pg Mean Corpuscular Hemoglobin Concent 31.6g/dl Mean Corpuscular Volume 93.9fl Mean Platelet Volume 11.8fl Monocytes # 0.510^3/ul Monocytes % 11.0% Neutrophils # 3.010^3/ul Neutrophils % 69.0% Platelet Count 24154^3/UL Platelet Estimate PLT APPEAR DECREASED Potassium Level 5.5mmol/L Prothrombin Time 22.0Sec Prothrombin Time Ratio 1.7 Reactive Lymphocytes % 3.0% Red Blood Count 3.4710^6/ul Red Cell Distribution Width 17.2% Sodium Level 140mmol/L Total Bilirubin 1.1mg/dl Total Protein 6.6g/dl White Blood Count 4.310^3/ul Procedures/MDM EKG, MONITORS, & DIAGNOSTIC IMAGING: Large volume therapeutic paracentesis performed by interventional radiology. LAB INTERPRETATION: No significant coagulopathy noted. MEDICAL DECISION MAKING: The patient presents with abdominal ascites likely secondary to cirrhosis. Patient does not exhibit any signs or symptoms concerning for complications of cirrhosis such as GI bleed, hepatic encephalopathy or spontaneous bacterial peritonitis. There is no indication currently for diagnostic paracentesis. The patient will benefit from large volume therapeutic paracentesis by interventional radiology. If the patient remains stable without evidence of hemodynamic compromise secondary to fluid shifts the patient can be safely discharged home with close primary care and hepatology follow-up. ER COURSE: The patient had successful large volume therapeutic paracentesis. The patient remained hemodynamically stable and otherwise well-appearing. The patient is safe for discharge home. I kept the patient and/or family informed of laboratory and diagnostic imaging results throughout the emergency room course. DISPOSITION PLAN: We discussed follow up with the patient's primary care doctor within 24 to 48 hours as needed. We also discussed return to the emergency room for worsening symptoms or worsening condition. Discharge Medications: None Departure Diagnosis: Primary Impression: Ascites Ascites type: due to alcoholic cirrhosis Qualified Code: K70.31 - Ascites due to alcoholic cirrhosis Condition: Stable CLINTON TAMAYO MD Dec 29, 2016 13:28
[2016-12-29 13:30] LABS: HEMATOCRIT 32.6 % (42.0-52.0); HEMOGLOBIN 10.3 g/dl (14.0-18.0); MEAN CORPUSCULAR HEMOGLOBIN 29.7 pg (29.0-33.0); MEAN CORPUSCULAR HGB CONC 31.6 g/dl (32.0-37.0); MEAN CORPUSCULAR VOLUME 93.9 fl (82.0-101.0); MEAN PLATELET VOLUME 11.8 fl (7.4-10.4); PLATELET COUNT 111 10^3/UL (140-415); RED BLOOD COUNT 3.47 10^6/ul (4.70-6.10); RED CELL DISTRIBUTION WIDTH 17.2 % (11.5-14.5); WHITE BLOOD COUNT 4.3 10^3/ul (4.8-10.8)
[2016-12-29 13:43] LABS: ALBUMIN 4.4 g/dl (3.3-4.9)
[2016-12-29 13:44] LABS: INR 1.9; POTASSIUM 5.5 mmol/L (3.5-5.1); PT RATIO 1.7
[2016-12-29 13:46] LABS: BILIRUBIN,INDIRECT 1.1 mg/dl (0-1.1); BILIRUBIN,TOTAL 1.1 mg/dl (0.2-1.3); CREATININE 1.25 mg/dl (0.61-1.24)
[2016-12-29 13:47] LABS: CALCIUM 9.4 mg/dl (8.4-10.2); TOTAL PROTEIN 6.6 g/dl (6.1-8.1)
[2016-12-29 13:53] LABS: EOSINOPHILS # 0.3 10^3/ul (0.0-0.5); LYMPHOCYTES # 0.5 10^3/ul (0.8-2.9); MONOCYTE # 0.5 10^3/ul (0.3-0.9)
[2016-12-29 13:54] LABS: ANISOCYTOSIS 1+; BURR CELLS 1+; HYPOCHROMASIA 1+; PLATELET ESTIMATE PLT APPEAR DECREASED
[2016-12-29 15:46] VITALS: BP 104/64; PULSE 58; RESP 18
[2016-12-29] MEDS ORDERED: LIDOCAINE 1% (MPF) 5 ML VIAL ONE (15:50)
--- NOTE | 2016-12-29 16:55 | RADRPT ---
PROCEDURE: Ultrasound guided paracentesis CLINICAL INDICATION: Ascites TECHNIQUE: The risks benefits and alternatives of the procedure were explained to the patient. In formed written consent was obtained. The patient understood the risks benefits and alternatives and wished to proceed with the procedure. A time out was performed. The overlying skin of the right lower quadrant of the abdomen was prepped and draped in the usual sterile fashion. Approximately 10 cc of lidocaine was injected locally for pain control. Utilizing ultrasound guidance, an 6-Austrian p aracentesis catheter was placed into the peritoneal cavity without difficulty. Fluid was drained i nto vacuum bottles. After completion of draining fluid, the catheter was removed and direct pressur e was applied to the puncture site. A compression bandage was then placed at the puncture site. e patient tolerated the procedure well without complication. The fluid was not sent to the lab fo r further analysis. COMPARISON: 12/09/2016 FINDINGS: Surgeon: Cami LOPEZ. Preprocedural diagnosis: Ascites. Postprocedural diagnosis: Ascites. Samples removed: 7200 cc of clear yellow fluid was obtained. Complications: None. Estimated blood loss: 0 cc. Condition: Stable and unchanged. IMPRESSION: 1. Successful ultrasound-guided paracentesis. RPTAT: QQ .Elias Almanza MD, MD Date Time Electronically viewed and signed by .Elias Almanza MD, on 12/29/2016 16:54 .M/
== END 2016-12-29 15:52 | disposition home or self-care (01) ==
LOC: E/R 10:53
DX: K70.31 Alcoholic cirrhosis of liver with ascites (principal); I10 Essential (primary) hypertension; E11.9 Type 2 diabetes mellitus without complications; Z79.4 Long term (current) use of insulin; Z79.84 Long term (current) use of oral hypoglycemic drugs; Z87.891 Personal history of nicotine dependence
CPT/HCPCS: 80053; 85025; 85610; 85730; Z7502; Z7610

== ENCOUNTER 2017-01-04 10:11 | Emergency (ER) | payer OTHER ==
[~2017-01-04] VITALS: Ht 157.5 cm; Wt 75.5 kg
[2017-01-04 10:12] VITALS: Ht 157.5 cm; Wt 75.5 kg
[2017-01-04 14:01] LABS: ABNORMAL IP MESSAGE 1; ADD SCAN DIFF NO; BASOPHIL # 0.1 10^3/ul (0.0-0.1); BASOPHILS % 1.4 % (0.0-2.0); EOSINOPHILS # 0.1 10^3/ul (0.0-0.5); EOSINOPHILS % 2.7 % (0.0-7.0); HEMATOCRIT 29.2 % (42.0-52.0); HEMOGLOBIN 9.9 g/dl (14.0-18.0); LYMPHOCYTES # 0.5 10^3/ul (0.8-2.9); MEAN CORPUSCULAR HEMOGLOBIN 31.2 pg (29.0-33.0); MEAN CORPUSCULAR HGB CONC 33.9 g/dl (32.0-37.0); MEAN CORPUSCULAR VOLUME 92.1 fl (82.0-101.0); MONOCYTE # 0.4 10^3/ul (0.3-0.9); MONOCYTES % 11.5 % (0.0-11.0); NEUTROPHIL # 2.5 10^3/ul (1.6-7.5); NEUTROPHILS % 69.9 % (39.0-77.0); PLATELET COUNT 106 10^3/UL (140-415); RED BLOOD COUNT 3.17 10^6/ul (4.70-6.10); RED CELL DISTRIBUTION WIDTH 17.9 % (11.5-14.5); WHITE BLOOD COUNT 3.6 10^3/ul (4.8-10.8)
[2017-01-04] MEDS ORDERED: LIDOCAINE 1% (MPF) 5 ML VIAL ONE (14:10)
[2017-01-04 14:11] LABS: ALBUMIN 3.7 g/dl (3.3-4.9)
[2017-01-04 14:12] LABS: INR 1.74; POTASSIUM 4.1 mmol/L (3.5-5.1); PROTIME 20.5 Sec (12.2-14.2); PT RATIO 1.6
[2017-01-04 14:13] LABS: PARTIAL THROMBOPLASTIN TIME 37.1 Sec (25.0-35.0)
[2017-01-04 14:14] LABS: BILIRUBIN,INDIRECT 0.9 mg/dl (0-1.1); BILIRUBIN,TOTAL 0.9 mg/dl (0.2-1.3); CREATININE 0.88 mg/dl (0.61-1.24)
[2017-01-04 14:15] LABS: ALBUMIN/GLOBULIN RATIO 1.32; CALCIUM 8.5 mg/dl (8.4-10.2); TOTAL PROTEIN 6.5 g/dl (6.1-8.1)
[2017-01-04 15:06] VITALS: BP 99/62; PULSE 82; RESP 18; TEMP 98.1
--- NOTE | 2017-01-04 15:09 | RADRPT ---
PROCEDURE: Ultrasound guided paracentesis. CLINICAL INDICATION: Recurrent ascites. TECHNIQUE: Ultrasound guidance. COMPARISON: Exam dated 12/29/2016. FINDINGS: Informed consent was obtained prior to the start of the procedure. The risks, benefits, alternative s were discussed which include but are not limited to bleeding, infection, damage the adjacent struc tures, and bowel perforation. A time out was performed immediately prior to the start of the proced ure. Preliminary ultrasound of the abdomen was performed and demonstrated ascites. An appropriate site f or entry into the peritoneal cavity was identified in the right upper quadrant and marked at the ski n surface. The patient was prepped and draped in usual sterile fashion. The subcutaneous tissues we re anesthetized with 1% lidocaine. A small incision was made at the skin surface. Then, a 5-Faroese coaxial needle was introduced into the peritoneal cavity and connected to tubing for suction. Appr oximately 8300 cc of clear yellow fluid was aspirated. The catheter was then removed and hemostasis was achieved at the skin surface with manual compression. A dry dressing was applied. The patient tolerated the procedure well and there were no immediate complications. IMPRESSION: Technically successful ultrasound-guided paracentesis. There were no immediate complications. RPTAT: QQ .Nicolas Ambrocio MD, MD Date Time Electronically viewed and signed by .Nicolas Ambrocio MD, MD on 01/04/2017 15:09 .P/
--- NOTE | 2017-01-04 15:17 | ERD ---
ER Documentation Chief Complaint Date/Time DATE: 01/04/17 TIME: 15:15 Chief Complaint here for paracenthesis, ap,ascitis HPI This a 56-year-old male with a history of cirrhosis with chronic ascites. The patient is frequently here for paracentesis and is here for the same today. Says he is complaining of some worsening abdominal swelling over the past week consistent with his prior ascites. He is having no fever shortness of breath abdominal pain diarrhea nausea vomiting fever. ROS All systems reviewed and are negative except as per history of present illness. Medications Home Meds Active Scripts Hydrocodone/Acetaminophen ([place] 5-325 Tablet) 1 Each Tablet, 1 EACH PO TID, # 14 TAB Prov:SHAWN SANCHEZ 11/29/16 Insulin Aspart* (Novolog Insulin Pen*) 100 Unit/Ml Soln, 10 UNIT SC WITH MEALS BEDTIME for 28 Days Prov:JERZY BENSON MD 08/27/16 Reported Medications Dapagliflozin Propanediol (Farxiga) 10 Mg Tablet, 10 MG PO DAILY, #30 TAB 08/23/16 Insulin Glargine* (Lantus*) 100 Unit/Ml Soln, 35 UNIT SC QHS, #1 VIAL 08/23/16 Losartan Potassium* (Cozaar*) 25 Mg Tablet, 25 MG PO DAILY, #30 TAB 08/23/16 Pantoprazole* (Protonix*) 40 Mg Tablet.dr, 40 MG PO DAILY, TAB 08/23/16 Furosemide* (Furosemide*) 40 Mg Tablet, 40 MG PO DAILY, TAB 08/23/16 Fenofibrate Nanocrystallized* (Fenofibrate*) 145 Mg Tablet, 145 MG PO DAILY, TAB 08/23/16 Zolpidem Tartrate* (Zolpidem Tartrate*) 10 Mg Tablet, 10 MG PO QHS Y for INSOMNIA, #30 TAB 08/23/16 Spironolactone* (Spironolactone*) 100 Mg Tablet, 100 MG PO QAM, TAB 08/23/16 Allergies Allergies: Coded Allergies: No Known Drug Allergy (Verified Allergy, Unknown, 11/29/16) PMhx/Soc History of Surgery: Yes Anesthesia Reaction: No Hx Neurological Disorder: Yes (NEUROPATHY) Hx Respiratory Disorders: No Hx Cardiac Disorders: Yes (HTN) Hx Psychiatric Problems: No Hx Miscellaneous Medical Probl: Yes (Ascites, DM, LIVER DISEASE, CHRONIC PANCREATITIS) Hx Alcohol Use: No Hx Substance Use: No Hx Tobacco Use: No (Former) Smoking Status: Never smoker FmHx Family History: No coronary disease Physical Exam Vitals Vital Signs Date Time Temp Pulse Resp B/P Pulse Ox O2 Delivery O2 Flow Rate FiO2 01/04/17 15:06 98.1 82 18 99/62 98 01/04/17 14:09 98.1 18 109/78 99 01/04/17 10:12 98.1 85 20 89/66 99 Physical Exam Const: Well-developed, well-nourished Head: Atraumatic, normocephalic Eyes: Normal Conjunctiva, PERRLA, EOMI, normal sclera, no nystagmus ENT: Normal External Ears, Nose and Mouth, moist mucus membranes. Neck: Full range of motion. No meningismus, no lymphadenopathy. Resp: Clear to auscultation bilaterally, no wheezing, rhonchi, rales Cardio: Regular rate and rhythm, no murmurs, S1 S2 present Abd: Soft, distended with ascites nontender 4 normal bowel sounds, no guarding or rebound, no pulsitile abdominal masses or bruits Skin: No petechiae or rashes, no ecchymosis , no maculopapular rash Back: No midline or flank tenderness Ext: No cyanosis, or edema, FROM x 4, normal inspection, neurovascularly intact x 4 Neur: Awake and alert, STR 5/5 x 4, sensation intact x 4, no focal findings, cerebellum intact Psych: Normal Mood and Affect Result Diagram: 01/04/17 1340 01/04/17 1340 Results 24 hrs Laboratory Tests Test 01/04/17 13:40 White Blood Count 3.610^3/ul Red Blood Count 3.1710^6/ul Hemoglobin 9.9g/dl Hematocrit 29.2% Mean Corpuscular Volume 92.1fl Mean Corpuscular Hemoglobin 31.2pg Mean Corpuscular Hemoglobin Concent 33.9g/dl Red Cell Distribution Width 17.9% Platelet Count 03790^3/UL Mean Platelet Volume 13.0fl Neutrophils % 69.9% Lymphocytes % 14.0% Monocytes % 11.5% Eosinophils % 2.7% Basophils % 1.4% Nucleated Red Blood Cells % 0.0/100WBC Neutrophils # 2.510^3/ul Lymphocytes # 0.510^3/ul Monocytes # 0.410^3/ul Eosinophils # 0.110^3/ul Basophils # 0.110^3/ul Nucleated Red Blood Cells # 0.010^3/ul Prothrombin Time 20.5Sec Prothrombin Time Ratio 1.6 INR International Normalized Ratio 1.74 Activated Partial Thromboplast Time 37.1Sec Sodium Level 135mmol/L Potassium Level 4.1mmol/L Chloride Level 102mmol/L Carbon Dioxide Level 24mmol/L Anion Gap 13 Blood Urea Nitrogen 23mg/dl Creatinine 0.88mg/dl Glucose Level 180mg/dl Calcium Level 8.5mg/dl Total Bilirubin 0.9mg/dl Direct Bilirubin 0.00mg/dl Indirect Bilirubin 0.9mg/dl Aspartate Amino Transf (AST/SGOT) 83IU/L Alanine Aminotransferase (ALT/SGPT) 45IU/L Alkaline Phosphatase 146IU/L Total Protein 6.5g/dl Albumin 3.7g/dl Globulin 2.80g/dl Albumin/Globulin Ratio 1.32 Procedures/MDM PROCEDURE: Ultrasound guided paracentesis. CLINICAL INDICATION: Recurrent ascites. TECHNIQUE: Ultrasound guidance. COMPARISON: Exam dated 12/29/2016. FINDINGS: Informed consent was obtained prior to the start of the procedure. The risks, benefits, alternatives were discussed which include but are not limited to bleeding, infection, damage the adjacent structures, and bowel perforation. A time out was performed immediately prior to the start of the procedure. Preliminary ultrasound of the abdomen was performed and demonstrated ascites. An appropriate site for entry into the peritoneal cavity was identified in the right upper quadrant and marked at the skin surface. The patient was prepped and draped in usual sterile fashion. The subcutaneous tissues were anesthetized with 1% lidocaine. A small incision was made at the skin surface. Then, a 5-Telugu coaxial needle was introduced into the peritoneal cavity and connected to tubing for suction. Approximately 8300 cc of clear yellow fluid was aspirated. The catheter was then removed and hemostasis was achieved at the skin surface with manual compression. A dry dressing was applied. The patient tolerated the procedure well and there were no immediate complications. IMPRESSION: Technically successful ultrasound-guided paracentesis. There were no immediate complications. RPTAT: QQ .Nicolas Ambrocio MD, MD Date Time Electronically viewed and signed by .Nicolas Ambrocio MD, MD on 01/04/2017 15:09 .P/ CC: ANDRIY GARCIA DO Patient's paracentesis is successful and he feels much better discharged home Departure Diagnosis: Primary Impression: Ascites Ascites type: other type Qualified Code: R18.8 - Other ascites Condition: Stable Patient Instructions: Ascites ANDRIY GARCIA DO Jan 04, 2017 15:16
== END 2017-01-04 15:06 | disposition home or self-care (01) ==
LOC: E/R 10:11
DX: R18.8 Other ascites (principal); I10 Essential (primary) hypertension; E11.9 Type 2 diabetes mellitus without complications; R10.9 Unspecified abdominal pain; Z79.84 Long term (current) use of oral hypoglycemic drugs; Z87.891 Personal history of nicotine dependence; Z79.4 Long term (current) use of insulin
CPT/HCPCS: 80053; 85025; 85610; 85730; Z7610; 36415

== ENCOUNTER 2017-01-11 11:16 | Emergency (ER) | payer OTHER ==
[~2017-01-11] VITALS: Wt 76.0 kg
--- NOTE | 2017-01-11 11:32 | ERD ---
ER Documentation Chief Complaint Date/Time DATE: 01/11/17 TIME: 11:30 Chief Complaint ABD PAIN SWELLING HPI 56-year-old male history of alcoholic cirrhosis who presents with abdominal distention and fullness. His last paracentesis was approximately 1 week ago. He is on the transplant list. He denies any significant pain, fevers, no melena , no hematemesis. He otherwise has no complaints. ROS All systems reviewed and are negative except as per history of present illness. Medications Home Meds Active Scripts Insulin Aspart* (Novolog Insulin Pen*) 100 Unit/Ml Soln, 10 UNIT SC WITH MEALS BEDTIME for 28 Days Prov:JERZY BENSON MD 08/27/16 Reported Medications Dapagliflozin Propanediol (Farxiga) 10 Mg Tablet, 10 MG PO DAILY, #30 TAB 08/23/16 Insulin Glargine* (Lantus*) 100 Unit/Ml Soln, 35 UNIT SC QHS, #1 VIAL 08/23/16 Losartan Potassium* (Cozaar*) 25 Mg Tablet, 25 MG PO DAILY, #30 TAB 08/23/16 Pantoprazole* (Protonix*) 40 Mg Tablet.dr, 40 MG PO DAILY, TAB 08/23/16 Furosemide* (Furosemide*) 40 Mg Tablet, 40 MG PO DAILY, TAB 08/23/16 Fenofibrate Nanocrystallized* (Fenofibrate*) 145 Mg Tablet, 145 MG PO DAILY, TAB 08/23/16 Zolpidem Tartrate* (Zolpidem Tartrate*) 10 Mg Tablet, 10 MG PO QHS Y for INSOMNIA, #30 TAB 08/23/16 Spironolactone* (Spironolactone*) 100 Mg Tablet, 100 MG PO QAM, TAB 08/23/16 Discontinued Scripts Hydrocodone/Acetaminophen ([place] 5-325 Tablet) 1 Each Tablet, 1 EACH PO TID, # 14 TAB Prov:SHAWN SANCHEZ 11/29/16 Allergies Allergies: Coded Allergies: No Known Drug Allergy (Verified Allergy, Unknown, 01/11/17) PMhx/Soc History of Surgery: Yes Anesthesia Reaction: No Hx Neurological Disorder: Yes (NEUROPATHY) Hx Respiratory Disorders: No Hx Cardiac Disorders: Yes (HTN) Hx Psychiatric Problems: No Hx Miscellaneous Medical Probl: Yes (Ascites, DM, LIVER DISEASE, CHRONIC PANCREATITIS) Hx Alcohol Use: No Hx Substance Use: No Hx Tobacco Use: No (Former) FmHx Family History: No diabetes Physical Exam Vitals Vital Signs Date Time Temp Pulse Resp B/P Pulse Ox O2 Delivery O2 Flow Rate FiO2 01/11/17 13:28 72 18 109/67 100 Room Air 01/11/17 11:21 98.0 78 18 106/70 99 Physical Exam General: Well developed, well nourished, no acute distress Head: Normocephalic, atraumatic. Eyes: Pupils equally reactive, EOM intact ENT: Moist mucous membranes Neck: Supple, no lymphadenopathy Respiratory: Lungs clear bilaterally, no distress Cardiovascular: RRR, no murmurs, rubs, or gallops Abdominal: Soft, protuberant with fluid wave, nontender : Deferred MSK: No edema, no unilateral swelling, 5/5 strength Neurologic: Alert and oriented, moving all extremities, normal speech, no focal weakness, no cerebellar signs Skin: No rash Psych: Normal mood Result Diagram: 01/11/17 1132 01/11/17 1132 Results 24 hrs Laboratory Tests Test 01/11/17 11:32 White Blood Count 4.310^3/ul Red Blood Count 3.2610^6/ul Hemoglobin 10.0g/dl Hematocrit 29.5% Mean Corpuscular Volume 90.5fl Mean Corpuscular Hemoglobin 30.7pg Mean Corpuscular Hemoglobin Concent 33.9g/dl Red Cell Distribution Width 18.8% Platelet Count 00314^3/UL Mean Platelet Volume 12.1fl Neutrophils % 74.0% Lymphocytes % 10.6% Monocytes % 12.5% Eosinophils % 1.2% Basophils % 1.2% Nucleated Red Blood Cells % 0.0/100WBC Neutrophils # 3.210^3/ul Lymphocytes # 0.510^3/ul Monocytes # 0.510^3/ul Eosinophils # 0.110^3/ul Basophils # 0.110^3/ul Nucleated Red Blood Cells # 0.010^3/ul Prothrombin Time 16.7Sec Prothrombin Time Ratio 1.3 INR International Normalized Ratio 1.34 Activated Partial Thromboplast Time 33.3Sec Sodium Level 133mmol/L Potassium Level 4.4mmol/L Chloride Level 102mmol/L Carbon Dioxide Level 21mmol/L Anion Gap 14 Blood Urea Nitrogen 18mg/dl Creatinine 0.80mg/dl Glucose Level 265mg/dl Calcium Level 8.9mg/dl Total Bilirubin 0.6mg/dl Direct Bilirubin 0.00mg/dl Indirect Bilirubin 0.6mg/dl Aspartate Amino Transf (AST/SGOT) 92IU/L Alanine Aminotransferase (ALT/SGPT) 60IU/L Alkaline Phosphatase 203IU/L Total Protein 6.4g/dl Albumin 3.2g/dl Globulin 3.20g/dl Albumin/Globulin Ratio 1.00 Procedures/MDM EKG, MONITORS, & DIAGNOSTIC IMAGING: Large volume therapeutic paracentesis performed by interventional radiology. LAB INTERPRETATION: No significant coagulopathy noted. MEDICAL DECISION MAKING: The patient presents with abdominal ascites likely secondary to cirrhosis. Patient does not exhibit any signs or symptoms concerning for complications of cirrhosis such as GI bleed, hepatic encephalopathy or spontaneous bacterial peritonitis. There is no indication currently for diagnostic paracentesis. The patient will benefit from large volume therapeutic paracentesis by interventional radiology. If the patient remains stable without evidence of hemodynamic compromise secondary to fluid shifts the patient can be safely discharged home with close primary care and hepatology follow-up. ER COURSE: The patient had successful large volume therapeutic paracentesis. The patient remained hemodynamically stable and otherwise well-appearing. The patient is safe for discharge home. I kept the patient and/or family informed of laboratory and diagnostic imaging results throughout the emergency room course. DISPOSITION PLAN: We discussed follow up with the patient's primary care doctor within 24 to 48 hours as needed. We also discussed return to the emergency room for worsening symptoms or worsening condition. Discharge Medications: None Departure Diagnosis: Primary Impression: Alcoholic cirrhosis of liver with ascites Condition: Stable CLINTON TAMAYO MD Jan 11, 2017 11:31
[2017-01-11 11:56] LABS: ADD SCAN DIFF NO
[2017-01-11 11:59] LABS: ABNORMAL IP MESSAGE 1; BASOPHIL # 0.1 10^3/ul (0.0-0.1); BASOPHILS % 1.2 % (0.0-2.0); EOSINOPHILS # 0.1 10^3/ul (0.0-0.5); EOSINOPHILS % 1.2 % (0.0-7.0); HEMATOCRIT 29.5 % (42.0-52.0); LYMPHOCYTES # 0.5 10^3/ul (0.8-2.9); LYMPHOCYTES % 10.6 % (15.0-51.0); MEAN CORPUSCULAR HEMOGLOBIN 30.7 pg (29.0-33.0); MEAN CORPUSCULAR HGB CONC 33.9 g/dl (32.0-37.0); MEAN CORPUSCULAR VOLUME 90.5 fl (82.0-101.0); MEAN PLATELET VOLUME 12.1 fl (7.4-10.4); MONOCYTE # 0.5 10^3/ul (0.3-0.9); MONOCYTES % 12.5 % (0.0-11.0); NEUTROPHIL # 3.2 10^3/ul (1.6-7.5); PLATELET COUNT 122 10^3/UL (140-415); RED BLOOD COUNT 3.26 10^6/ul (4.70-6.10); RED CELL DISTRIBUTION WIDTH 18.8 % (11.5-14.5); WHITE BLOOD COUNT 4.3 10^3/ul (4.8-10.8)
[2017-01-11 12:08] LABS: INR 1.34; PROTIME 16.7 Sec (12.2-14.2); PT RATIO 1.3
[2017-01-11 12:09] LABS: ALBUMIN 3.2 g/dl (3.3-4.9); PARTIAL THROMBOPLASTIN TIME 33.3 Sec (25.0-35.0)
[2017-01-11 12:10] LABS: POTASSIUM 4.4 mmol/L (3.5-5.1)
[2017-01-11 12:12] LABS: BILIRUBIN,INDIRECT 0.6 mg/dl (0-1.1); BILIRUBIN,TOTAL 0.6 mg/dl (0.2-1.3); CALCIUM 8.9 mg/dl (8.4-10.2); CREATININE 0.8 mg/dl (0.61-1.24); TOTAL PROTEIN 6.4 g/dl (6.1-8.1)
[2017-01-11] MEDS ORDERED: LIDOCAINE 1% (MPF) 5 ML VIAL ONE (13:09)
--- NOTE | 2017-01-11 13:27 | RADRPT ---
PROCEDURE: Ultrasound guided paracentesis CLINICAL INDICATION: Ascites TECHNIQUE: The risks benefits and alternatives of the procedure were explained to the patient. In formed written consent was obtained. A time out was performed. The patient understood the risks be nefits and alternatives and wished to proceed with the procedure. COMPARISON: None available FINDINGS: A time out was performed. The overlying skin of the right lower quadrant of the abdomen was prepped and draped in the usual sterile fashion. Approximately 10 cc of lidocaine was injected locally for pain control. Utilizing ultrasound guidance, a 6-Gu[place] paracentesis catheter was placed into the peritoneal cavity without difficulty. The patient tolerated the procedure well without complication . Approximately 7500 cc of clear yellow fluid was obtained. The fluid was not sent to the lab for further analysis. IMPRESSION: 1. Successful ultrasound-guided paracentesis. RPTAT: QQ .Aram Gutierrez MD, Date Time Electronically viewed and signed by .Aram Gutierrez MD, MD on 01/11/2017 13:26 .R/
[2017-01-11 13:28] VITALS: BP 109/67; PULSE 72; RESP 18
== END 2017-01-11 13:38 | disposition home or self-care (01) ==
LOC: E/R 11:16
DX: K70.31 Alcoholic cirrhosis of liver with ascites (principal); I10 Essential (primary) hypertension; E11.9 Type 2 diabetes mellitus without complications; Z79.4 Long term (current) use of insulin; Z79.84 Long term (current) use of oral hypoglycemic drugs; Z87.891 Personal history of nicotine dependence
CPT/HCPCS: 36415; 80053; 85025; 85610; 85730; Z7502; Z7610

== ENCOUNTER 2017-01-16 10:46 | Emergency (ER) | payer OTHER ==
[~2017-01-16] VITALS: Wt 78.0 kg
[~2017-01-16 10:46] MED LIST changes: -HYDR-906 PO
[2017-01-16] MEDS ORDERED: LIDOCAINE 1% (MPF) 5 ML VIAL ONE (13:28)
--- NOTE | 2017-01-16 13:44 | RADRPT ---
PROCEDURE: Ultrasound guided paracentesis. CLINICAL INDICATION: Ascites and shortness of breath. COMPARISON: 01/11/2017. TECHNIQUE: The risks, benefits, and alternatives were explained to the patient and/or the patient's family, inc luding but not limited to bleeding, infection, pain, visceral or vascular damage, shock, and . The patient and/or the patient's family understood the risks and the alternatives and wished to pro ceed with the procedure. Informed written consent was obtained. A procedural time out was performed . The patient's name, date of , and procedure to be performed were verified. Utilizing ultrasound guidance, optimal location for entry to the peritoneal cavity was ascertained. The overlying skin was prepped and draped in the usual sterile fashion. Approximately 10 ml of 1% Xylocaine was injected locally for pain control. Using ultrasound guidance, an 8 [place] catheter wa s introduced into the peritoneal cavity in the right lower quadrant without difficulty. FINDINGS: Initial images demonstrate ascites. Approximately 8.0 liters of serous fluid was aspirated and disc arded. The patient tolerated the procedure well without complication. IMPRESSION: 1. Successful ultrasound-guided paracentesis. RPTAT: QQ .Thierno Ventura MD, Date Time Electronically viewed and signed by .Thierno Ventura MD, on 01/16/2017 13:44 .R/
--- NOTE | 2017-01-16 13:51 | ERD ---
ER Documentation Chief Complaint Date/Time DATE: 01/16/17 TIME: 13:50 Chief Complaint PARACENTESIS HPI Patient is a 56-year-old male with cirrhosis who presents for a paracentesis. He received paracentesis approximately every 3 days. His last paracentesis was on January 11 and he did have labs done at that day. His abdomen has filled up with fluid again and he came back for abdominal swelling. He has no complaints other than abdominal pain. He has had no fevers. He has had no treatment as of yet. ROS All systems reviewed and are negative except as per history of present illness. Medications Home Meds Active Scripts Insulin Aspart* (Novolog Insulin Pen*) 100 Unit/Ml Soln, 10 UNIT SC WITH MEALS BEDTIME for 28 Days Prov:JERZY BENSON MD 08/27/16 Reported Medications Dapagliflozin Propanediol (Farxiga) 10 Mg Tablet, 10 MG PO DAILY, #30 TAB 08/23/16 Insulin Glargine* (Lantus*) 100 Unit/Ml Soln, 35 UNIT SC QHS, #1 VIAL 08/23/16 Losartan Potassium* (Cozaar*) 25 Mg Tablet, 25 MG PO DAILY, #30 TAB 08/23/16 Pantoprazole* (Protonix*) 40 Mg Tablet.dr, 40 MG PO DAILY, TAB 08/23/16 Furosemide* (Furosemide*) 40 Mg Tablet, 40 MG PO DAILY, TAB 08/23/16 Fenofibrate Nanocrystallized* (Fenofibrate*) 145 Mg Tablet, 145 MG PO DAILY, TAB 08/23/16 Zolpidem Tartrate* (Zolpidem Tartrate*) 10 Mg Tablet, 10 MG PO QHS Y for INSOMNIA, #30 TAB 08/23/16 Spironolactone* (Spironolactone*) 100 Mg Tablet, 100 MG PO QAM, TAB 08/23/16 Discontinued Scripts Hydrocodone/Acetaminophen ([place] 5-325 Tablet) 1 Each Tablet, 1 EACH PO TID, # 14 TAB Prov:SHAWN SANCHEZ 11/29/16 Allergies Allergies: Coded Allergies: No Known Drug Allergy (Verified Allergy, Unknown, 01/16/17) PMhx/Soc History of Surgery: Yes Anesthesia Reaction: No Hx Neurological Disorder: Yes (NEUROPATHY) Hx Respiratory Disorders: No Hx Cardiac Disorders: Yes (HTN) Hx Psychiatric Problems: No Hx Miscellaneous Medical Probl: Yes (Ascites, DM, LIVER DISEASE, CHRONIC PANCREATITIS) Hx Alcohol Use: No (hx of etoh abuse) Hx Substance Use: No Hx Tobacco Use: No (Former) FmHx Family History: No diabetes Physical Exam Vitals Vital Signs Date Time Temp Pulse Resp B/P Pulse Ox O2 Delivery O2 Flow Rate FiO2 01/16/17 10:48 98.1 81 18 114/76 99 Physical Exam Const: No acute distress Head: Atraumatic Eyes: Normal Conjunctiva ENT: Normal External Ears, Nose and Mouth. Neck: Full range of motion..~ No meningismus. Resp: Clear to auscultation bilaterally Cardio: Regular rate and rhythm, no murmurs Abd: Distended abdomen with positive fluid wave Skin: No petechiae or rashes Back: No midline or flank tenderness Ext: No cyanosis, or edema Neur: Awake and alert Psych: Normal Mood and Affect Results 24 hrs Current Medications Medications (Trade) Dose Ordered Sig/Lisa Route PRN Reason Start Time Stop Time Status Last Admin Dose Admin Lidocaine (Xylocaine 1% (Mpf)) 5 ml STK-MED ONCE .ROUTE 01/16/17 13:28 01/16/17 13:29 DC Procedures/MDM I reviewed laboratory studies from January 11 and the patient has no coagulopathy and therefore can receive his paracentesis. The patient had a paracentesis done by ultrasound with radiology. Patient is a 56-year-old male who presents for paracentesis. The patient had a paracentesis done by radiology. He feels better. I doubt spontaneous bacterial peritonitis. I believe outpatient management is appropriate. Departure Diagnosis: Primary Impression: Ascites Ascites type: other type Qualified Code: R18.8 - Other ascites Additional Impression: Abdominal pain Abdominal location: generalized Qualified Code: R10.84 - Generalized abdominal pain Condition: Fair Patient Instructions: Ascites Additional Instructions: Call your primary care doctor TOMORROW for an appointment during the next 1 WEEK.Tell the law secretary that you were referred from this facility.See the doctor sooner or return here if your condition worsens before your appointment time. ALESIA CLAROS MD Jan 16, 2017 13:51
== END 2017-01-16 13:42 | disposition home or self-care (01) ==
LOC: E/R 10:46
DX: R18.8 Other ascites (principal); R10.84 Generalized abdominal pain; I10 Essential (primary) hypertension; E11.9 Type 2 diabetes mellitus without complications; Z79.4 Long term (current) use of insulin; Z79.84 Long term (current) use of oral hypoglycemic drugs; Z87.891 Personal history of nicotine dependence
CPT/HCPCS: Z7502; Z7610

== ENCOUNTER 2017-01-21 10:45 | Emergency (ER) | payer OTHER ==
[~2017-01-21] VITALS: Ht 160 cm; Wt 75.0 kg
[2017-01-21 10:46] VITALS: Ht 160 cm; Wt 75.0 kg
[2017-01-21 11:21] LABS: ADD SCAN DIFF NO
[2017-01-21 11:26] LABS: ABNORMAL IP MESSAGE 1; BASOPHIL # 0.1 10^3/ul (0.0-0.1); BASOPHILS % 1.2 % (0.0-2.0); EOSINOPHILS # 0.1 10^3/ul (0.0-0.5); EOSINOPHILS % 2.8 % (0.0-7.0); HEMATOCRIT 32.2 % (42.0-52.0); HEMOGLOBIN 10.1 g/dl (14.0-18.0); LYMPHOCYTES # 0.5 10^3/ul (0.8-2.9); MEAN CORPUSCULAR HEMOGLOBIN 29.6 pg (29.0-33.0); MEAN CORPUSCULAR HGB CONC 31.4 g/dl (32.0-37.0); MEAN CORPUSCULAR VOLUME 94.4 fl (82.0-101.0); MEAN PLATELET VOLUME 11.6 fl (7.4-10.4); MONOCYTE # 0.5 10^3/ul (0.3-0.9); NEUTROPHIL # 3.6 10^3/ul (1.6-7.5); NEUTROPHILS % 73.4 % (39.0-77.0); PLATELET COUNT 133 10^3/UL (140-415); RED BLOOD COUNT 3.41 10^6/ul (4.70-6.10); RED CELL DISTRIBUTION WIDTH 18.6 % (11.5-14.5); WHITE BLOOD COUNT 4.9 10^3/ul (4.8-10.8)
[2017-01-21 11:39] LABS: INR 1.29; PARTIAL THROMBOPLASTIN TIME 32.4 Sec (25.0-35.0); PROTIME 16.2 Sec (12.2-14.2); PT RATIO 1.3
[2017-01-21 11:44] LABS: ALBUMIN/GLOBULIN RATIO 0.9; BILIRUBIN,INDIRECT 0.4 mg/dl (0-1.1); BILIRUBIN,TOTAL 0.4 mg/dl (0.2-1.3); CALCIUM 8.3 mg/dl (8.4-10.2); CREATININE 0.89 mg/dl (0.61-1.24); TOTAL PROTEIN 6.3 g/dl (6.1-8.1)
[2017-01-21] MEDS ORDERED: LIDOCAINE 1% (MPF) 5 ML VIAL ONE (12:41)
--- NOTE | 2017-01-21 13:27 | ERD ---
ER Documentation Chief Complaint Date/Time DATE: 01/21/17 TIME: 13:26 Chief Complaint FOR PARACENTESIS HPI 56-year-old male with a history of cirrhosis and recurrent ascites presents the emergency department for therapeutic paracentesis. Patient has no other complaints. ROS All systems reviewed and are negative except as per history of present illness. Medications Home Meds Active Scripts Insulin Aspart* (Novolog Insulin Pen*) 100 Unit/Ml Soln, 10 UNIT SC WITH MEALS BEDTIME for 28 Days Prov:JERZY BENSON MD 08/27/16 Reported Medications Dapagliflozin Propanediol (Farxiga) 10 Mg Tablet, 10 MG PO DAILY, #30 TAB 08/23/16 Insulin Glargine* (Lantus*) 100 Unit/Ml Soln, 35 UNIT SC QHS, #1 VIAL 08/23/16 Losartan Potassium* (Cozaar*) 25 Mg Tablet, 25 MG PO DAILY, #30 TAB 08/23/16 Pantoprazole* (Protonix*) 40 Mg Tablet.dr, 40 MG PO DAILY, TAB 08/23/16 Furosemide* (Furosemide*) 40 Mg Tablet, 40 MG PO DAILY, TAB 08/23/16 Fenofibrate Nanocrystallized* (Fenofibrate*) 145 Mg Tablet, 145 MG PO DAILY, TAB 08/23/16 Zolpidem Tartrate* (Zolpidem Tartrate*) 10 Mg Tablet, 10 MG PO QHS Y for INSOMNIA, #30 TAB 08/23/16 Spironolactone* (Spironolactone*) 100 Mg Tablet, 100 MG PO QAM, TAB 08/23/16 Allergies Allergies: Coded Allergies: No Known Drug Allergy (Verified Allergy, Unknown, 01/16/17) PMhx/Soc History of Surgery: Yes Anesthesia Reaction: No Hx Neurological Disorder: Yes (NEUROPATHY) Hx Respiratory Disorders: No Hx Cardiac Disorders: Yes (HTN) Hx Psychiatric Problems: No Hx Miscellaneous Medical Probl: Yes (Ascites, DM, LIVER DISEASE, CHRONIC PANCREATITIS) Hx Alcohol Use: No (hx of etoh abuse) Hx Substance Use: No Hx Tobacco Use: No (Former) Smoking Status: Former smoker FmHx Noncontributory for chief complaint Physical Exam Vitals Vital Signs Date Time Temp Pulse Resp B/P Pulse Ox O2 Delivery O2 Flow Rate FiO2 01/21/17 10:46 97.1 77 18 107/66 99 Physical Exam GENERAL: The patient is well developed and appropriate for usual state of health in no apparent distress HEENT: Pupils equal, round, and reactive to light. EOMI. There is no scleral icterus. NECK: C-spine is soft and supple, there is no meningismus. There is no cervical lymphadenopathy. LUNGS: Clear to auscultation bilaterally. There are no rales, wheezes or rhonchi. HEART: Regular rate and rhythm, no murmurs, clicks, rubs or gallops. ABDOMEN: Soft, distended. No tenderness to palpation. No rebound or guarding. EXTREMITIES: There is no peripheral cyanosis or edema. No focal swelling or erythema. NEURO: The patient moves all four extremities with 5/5 strength. Cranial nerves II - XII are intact. Normal gait. Alert and oriented SKIN: There is no apparent rash or petechiae. HEME/LYMPHATIC: There is no evidence of excessive bruising or lymphedema. PSYCHIATRIC: The patient does not appear anxious or depressed. Result Diagram: 01/21/17 1108 01/21/17 1108 Results 24 hrs Laboratory Tests Test 01/21/17 11:08 White Blood Count 4.910^3/ul Red Blood Count 3.4110^6/ul Hemoglobin 10.1g/dl Hematocrit 32.2% Mean Corpuscular Volume 94.4fl Mean Corpuscular Hemoglobin 29.6pg Mean Corpuscular Hemoglobin Concent 31.4g/dl Red Cell Distribution Width 18.6% Platelet Count 72277^3/UL Mean Platelet Volume 11.6fl Neutrophils % 73.4% Lymphocytes % 11.0% Monocytes % 11.0% Eosinophils % 2.8% Basophils % 1.2% Nucleated Red Blood Cells % 0.0/100WBC Neutrophils # 3.610^3/ul Lymphocytes # 0.510^3/ul Monocytes # 0.510^3/ul Eosinophils # 0.110^3/ul Basophils # 0.110^3/ul Nucleated Red Blood Cells # 0.010^3/ul Prothrombin Time 16.2Sec Prothrombin Time Ratio 1.3 INR International Normalized Ratio 1.29 Activated Partial Thromboplast Time 32.4Sec Sodium Level 131mmol/L Potassium Level 6.0mmol/L Chloride Level 107mmol/L Carbon Dioxide Level 20mmol/L Anion Gap 10 Blood Urea Nitrogen 16mg/dl Creatinine 0.89mg/dl Glucose Level 309mg/dl Calcium Level 8.3mg/dl Total Bilirubin 0.4mg/dl Direct Bilirubin 0.00mg/dl Indirect Bilirubin 0.4mg/dl Aspartate Amino Transf (AST/SGOT) 63IU/L Alanine Aminotransferase (ALT/SGPT) 53IU/L Alkaline Phosphatase 195IU/L Total Protein 6.3g/dl Albumin 3.0g/dl Globulin 3.30g/dl Albumin/Globulin Ratio 0.90 Current Medications Medications (Trade) Dose Ordered Sig/Lisa Route PRN Reason Start Time Stop Time Status Last Admin Dose Admin Lidocaine (Xylocaine 1% (Mpf)) 5 ml STK-MED ONCE .ROUTE 01/21/17 12:41 01/21/17 12:42 DC 01/21/17 12:44 Procedures/MDM Patient was taken to a room, seen and evaluated. Comfort measures were initiated. Diagnostic tests were ordered and reviewed. RADIOLOGY: [reviewed with the radiologist] REEVALUATION: After therapeutic paracentesis, patient felt much better and continued to have no complaints. MEDICAL DECISION MAKIN-year-old male presents for recurrent therapeutic paracentesis. After the paracentesis, patient felt much better, patient was clinically well and appropriate for outpatient care. Departure Diagnosis: Primary Impression: Ascites Condition: Stable Referrals: JESSICA LAY (PCP) Additional Instructions: See your doctor for follow-up as discussed. Take a copy of your test results, if appropriate, to this follow-up visit. See your doctor or return here if your symptoms do not improve as expected. At any time, please return to the emergency department for any change or worsening in her symptoms. SHAWN SANCHEZ Jan 21, 2017 13:27
[2017-01-21 13:28] VITALS: BP 100/85; PULSE 70; RESP 20
--- NOTE | 2017-01-21 15:53 | RADRPT ---
PROCEDURE: Ultrasound guided paracentesis. CLINICAL INDICATION: Ascites and shortness of breath. COMPARISON: 01/16/2017. TECHNIQUE: The risks, benefits, and alternatives were explained to the patient and/or the patient's family, inc luding but not limited to bleeding, infection, pain, visceral or vascular damage, shock, and . The patient and/or the patient's family understood the risks and the alternatives and wished to pro ceed with the procedure. Informed written consent was obtained. A procedural time out was performed . The patient's name, date of , and procedure to be performed were verified. Utilizing ultrasound guidance, optimal location for entry to the peritoneal cavity was ascertained. The overlying skin was prepped and draped in the usual sterile fashion. Approximately 10 ml of 1% Xylocaine was injected locally for pain control. Using ultrasound guidance, an 8 [place] catheter wa s introduced into the peritoneal cavity in the right lower quadrant without difficulty. FINDINGS: Initial images demonstrate ascites. Approximately 7.25 liters of serous fluid was aspirated and dis carded. The patient tolerated the procedure well without complication. IMPRESSION: 1. Successful ultrasound-guided paracentesis. RPTAT: QQ .Thierno Ventura MD, Date Time Electronically viewed and signed by .Thierno Ventura MD, on 01/21/2017 15:53 .R/
== END 2017-01-21 13:34 | disposition home or self-care (01) ==
LOC: E/R 10:45
DX: R18.8 Other ascites (principal); I10 Essential (primary) hypertension; E11.9 Type 2 diabetes mellitus without complications; R06.02 Shortness of breath; Z87.891 Personal history of nicotine dependence; Z79.4 Long term (current) use of insulin; Z79.84 Long term (current) use of oral hypoglycemic drugs
CPT/HCPCS: 36415; 80053; 85025; 85610; 85730; Z7502; Z7610

== ENCOUNTER 2017-01-22 09:22 | Day surgery (SDC) | payer OTHER ==
[~2017-01-22] VITALS: Ht 160 cm; Wt 68.3 kg
[2017-01-22 10:05] VITALS: Ht 160 cm; Wt 68.3 kg
[2017-01-22] MEDS ORDERED: MIDAZOLAM 1 MG/ML 2 ML INJ ONE (10:18)
[2017-01-22] MEDS ORDERED: PROPOFOL 20 ML ONE (10:18)
[2017-01-22] MEDS ORDERED: FENTAnyl 50 MCG/ML VIAL ONE ×2 (10:19)
[2017-01-22 10:20] VITALS: BP 90/54; PULSE 72; RESP 18
[2017-01-22] MEDS ORDERED: METOCLOPRAMIDE 10 MG INJ ONE (10:22)
[2017-01-22] MEDS ORDERED: EPHEDrine SULFATE 50 MG/5 ML SYG ONE (10:51)
[2017-01-22 11:51] VITALS: BP 104/71; PULSE 70; RESP 24
--- NOTE | 2017-01-23 08:58 | GILP ---
DATE OF PROCEDURE: 01/22/2017 PROCEDURE: Colonoscopy INDICATION: A 56-year-old male undergoing this procedure for colon cancer screening. The risks of the procedure, related and unrelated complications, anesthetic risks, alternatives discussed and inf ormed consent was obtained. DESCRIPTION OF PROCEDURE: The patient was brought to the GI lab, sedated by Dr. Agustina Casas. A fter optimal sedation, scope was passed with much ease into rectum and advanced slowly through sigmo id, descending, transverse colon all the way into cecum and into terminal ileum, which was normal. W hile coming out, mucosa thoroughly inspected. The rest of the colon appeared normal, had stool most ly in the descending colon. Small hemorrhoids identified. IMPRESSION: 1. Normal findings all the way into cecum and terminal ileum. 2. Somewhat poor prep. 3. Hemorrhoids. PLAN: Stay on high fiber diet. Dictated By: CONOR CLINE MD PJ/NTS Conf#: [id number] DID#: [id number] CC: CONOR CLINE MD;*EndCC*
== END 2017-01-23 08:12 | disposition home or self-care (01) ==
LOC: GIL 09:22
PROVIDERS: ATTEND Internal Medicine Gastroenterology
DX: Z12.11 Encounter for screening for malignant neoplasm of colon (principal); K64.9 Unspecified hemorrhoids; E11.9 Type 2 diabetes mellitus without complications; I10 Essential (primary) hypertension; E78.5 Hyperlipidemia, unspecified
CPT/HCPCS: 45378; 82962; J2250; J2765; J3010; Z7610

== ENCOUNTER 2017-01-25 11:39 | Emergency (ER) | payer OTHER ==
[~2017-01-25] VITALS: Ht 170.2 cm; Wt 75.0 kg
[~2017-01-25 11:39] MED LIST changes: -DAPA10TA PO; -FENO145T19 PO; -FURO40TA4 PO; -SPIR100T31 PO; -ZOLP10TA5 PO
[2017-01-25 11:49] VITALS: Ht 170.2 cm; Wt 75.0 kg
[2017-01-25 12:41] VITALS: TEMP 95.7
[2017-01-25] MEDS ORDERED: LIDOCAINE 1% (MPF) 5 ML VIAL ONE (13:39)
[2017-01-25 13:55] VITALS: BP 118/83; PULSE 60; RESP 16
--- NOTE | 2017-01-25 14:23 | ERD ---
ER Documentation Chief Complaint Date/Time DATE: 01/25/17 TIME: 14:19 Chief Complaint ABDOMINAL PAIN,DISTENTION.HX ASCITES AND LIVER CIRRHOSIS HPI This is a 56-year-old male seen here frequently for therapeutic paracentesis due to liver cirrhosis. He is here for the same. Patient's last paracentesis was last Friday. He has no abdominal pain no problems breathing no fevers he just feels fullness in his abdomen and needs his belly drained again ROS All systems reviewed and are negative except as per history of present illness. Medications Home Meds Active Scripts Insulin Aspart* (Novolog Insulin Pen*) 100 Unit/Ml Soln, 10 UNIT SC WITH MEALS BEDTIME for 28 Days Prov:JERZY BENSON MD 08/27/16 Reported Medications Insulin Glargine* (Lantus*) 100 Unit/Ml Soln, 35 UNIT SC QHS, #1 VIAL 08/23/16 Losartan Potassium* (Cozaar*) 25 Mg Tablet, 25 MG PO DAILY, #30 TAB 08/23/16 Pantoprazole* (Protonix*) 40 Mg Tablet.dr, 40 MG PO DAILY, TAB 08/23/16 Discontinued Reported Medications Dapagliflozin Propanediol (Farxiga) 10 Mg Tablet, 10 MG PO DAILY, #30 TAB 08/23/16 Furosemide* (Furosemide*) 40 Mg Tablet, 40 MG PO DAILY, TAB 08/23/16 Fenofibrate Nanocrystallized* (Fenofibrate*) 145 Mg Tablet, 145 MG PO DAILY, TAB 08/23/16 Zolpidem Tartrate* (Zolpidem Tartrate*) 10 Mg Tablet, 10 MG PO QHS Y for INSOMNIA, #30 TAB 08/23/16 Spironolactone* (Spironolactone*) 100 Mg Tablet, 100 MG PO QAM, TAB 08/23/16 Allergies Allergies: Coded Allergies: No Known Drug Allergy (Verified Allergy, Unknown, 01/16/17) PMhx/Soc History of Surgery: Yes (LIVER TRANSPLANT) Anesthesia Reaction: No Hx Neurological Disorder: No Hx Respiratory Disorders: No Hx Cardiac Disorders: Yes (HYPERTENSION) Hx Psychiatric Problems: No Hx Miscellaneous Medical Probl: Yes (HYPERLIPIDEMIA, PARACENTESIS) Hx Alcohol Use: No Hx Substance Use: No Hx Tobacco Use: No FmHx Family History: No coronary disease Physical Exam Vitals Vital Signs Date Time Temp Pulse Resp B/P Pulse Ox O2 Delivery O2 Flow Rate FiO2 01/25/17 13:55 60 16 118/83 100 Room Air 01/25/17 12:41 95.7 62 20 106/78 98 Room Air 01/25/17 12:04 95.7 97 20 165/76 100 Room Air 01/25/17 11:49 97.5 83 18 109/68 98 Physical Exam Const: Well-developed, well-nourished Head: Atraumatic, normocephalic Eyes: Normal Conjunctiva, PERRLA, EOMI, normal sclera, no nystagmus ENT: Normal External Ears, Nose and Mouth, moist mucus membranes. Neck: Full range of motion. No meningismus, no lymphadenopathy. Resp: Clear to auscultation bilaterally, no wheezing, rhonchi, rales Cardio: Regular rate and rhythm, no murmurs, S1 S2 present Abd: Soft, non tender x 4, distended with ascites nontender. Normal bowel sounds, no guarding or rebound, no pulsitile abdominal masses or bruits Skin: No petechiae or rashes, no ecchymosis , no maculopapular rash Back: No midline or flank tenderness Ext: No cyanosis, or edema, FROM x 4, normal inspection, neurovascularly intact x 4 Neur: Awake and alert, STR 5/5 x 4, sensation intact x 4, no focal findings, cerebellum intact Psych: Normal Mood and Affect Results 24 hrs Current Medications Medications (Trade) Dose Ordered Sig/Lisa Route PRN Reason Start Time Stop Time Status Last Admin Dose Admin Lidocaine (Xylocaine 1% (Mpf)) 5 ml STK-MED ONCE .ROUTE 01/25/17 13:39 01/25/17 13:40 DC 01/25/17 13:42 Procedures/MDM Patient tolerated therapeutic paracentesis by radiology with no difficulty Departure Diagnosis: Primary Impression: Ascites Ascites type: other type Qualified Code: R18.8 - Other ascites Condition: Stable Patient Instructions: ANDRIY Shirley DO Jan 25, 2017 14:23
--- NOTE | 2017-01-25 14:42 | RADRPT ---
PROCEDURE: Ultrasound guided paracentesis CLINICAL INDICATION: Ascites TECHNIQUE: The risks benefits and alternatives of the procedure were explained to the patient. In formed written consent was obtained. A time out was performed. The patient understood the risks be nefits and alternatives and wished to proceed with the procedure. The overlying skin of the right l ower quadrant of the abdomen was prepped and draped in the usual sterile fashion. Approximately 10 c c of Xylocaine was injected locally for pain control. Utilizing ultrasound guidance, a skinny 5-[facility] Yueh catheter was placed into the peritoneal cavity without difficulty. The patient tolerated the procedure well without complication. Approximately 6150 cc of thin alexa fluid was obtained. T he fluid was not sent to the lab for further analysis. COMPARISON: 01/21/2017 FINDINGS: Initial ultrasound demonstrated a large amount of simple appearing ascites. Successful ultrasound-g uided paracentesis with a total of 6150 cc of thin yellow fluid aspirated. IMPRESSION: Successful ultrasound-guided paracentesis. RPTAT: JJ .Kam Harris MD, MD Date Time Electronically viewed and signed by .Kam Harris MD, on 01/25/2017 14:42 .A/
== END 2017-01-25 14:22 | disposition home or self-care (01) ==
LOC: E/R 11:39
DX: R18.8 Other ascites (principal); I10 Essential (primary) hypertension; E11.9 Type 2 diabetes mellitus without complications; Z79.4 Long term (current) use of insulin; Z79.84 Long term (current) use of oral hypoglycemic drugs
CPT/HCPCS: Z7610 ×4

== ENCOUNTER 2017-01-30 11:19 | Emergency (ER) | payer OTHER ==
[~2017-01-30] VITALS: Ht 172.7 cm; Wt 77.0 kg
[2017-01-30 11:22] VITALS: Ht 172.7 cm; Wt 77.0 kg
[2017-01-30] MEDS ORDERED: ONDANSETRON 4 MG INJ IV STA (12:21)
[2017-01-30] MEDS ORDERED: morphine 4 MG/ML VIAL IV STA (12:21)
--- NOTE | 2017-01-30 13:50 | ERD ---
ER Documentation Chief Complaint Date/Time DATE: 01/30/17 TIME: 13:48 Chief Complaint needs paracenthesis HPI 56-year-old male who presents with abdominal distention and fullness. The patient has a history of end-stage liver disease with frequent paracentesis. He describes mild abdominal fullness but no significant pain. No fevers or chills. Symptoms are similar to episodes in the past. Last paracentesis was Friday. No hematemesis or melena. No confusion. ROS All systems reviewed and are negative except as per history of present illness. Medications Home Meds Active Scripts Insulin Aspart* (Novolog Insulin Pen*) 100 Unit/Ml Soln, 10 UNIT SC WITH MEALS BEDTIME for 28 Days Prov:JERZY BENSON MD 08/27/16 Reported Medications Insulin Glargine* (Lantus*) 100 Unit/Ml Soln, 35 UNIT SC QHS, #1 VIAL 08/23/16 Losartan Potassium* (Cozaar*) 25 Mg Tablet, 25 MG PO DAILY, #30 TAB 08/23/16 Pantoprazole* (Protonix*) 40 Mg Tablet.dr, 40 MG PO DAILY, TAB 08/23/16 Allergies Allergies: Coded Allergies: No Known Drug Allergy (Verified Allergy, Unknown, 01/30/17) PMhx/Soc History of Surgery: No Anesthesia Reaction: No Hx Neurological Disorder: No Hx Respiratory Disorders: No Hx Cardiac Disorders: No Hx Psychiatric Problems: No Hx Miscellaneous Medical Probl: No Hx Alcohol Use: No Hx Substance Use: No Hx Tobacco Use: No Smoking Status: Never smoker FmHx Family History: No diabetes Physical Exam Vitals Vital Signs Date Time Temp Pulse Resp B/P Pulse Ox O2 Delivery O2 Flow Rate FiO2 01/30/17 11:22 97.7 87 22 110/71 98 Physical Exam General: Well developed, well nourished, no acute distress Head: Normocephalic, atraumatic. Eyes: Pupils equally reactive, EOM intact ENT: Moist mucous membranes Neck: Supple, no lymphadenopathy Respiratory: Lungs clear bilaterally, no distress Cardiovascular: RRR, no murmurs, rubs, or gallops Abdominal: Soft, fluid wave, nontender, no peritonitis : Deferred MSK: No edema, no unilateral swelling, 5/5 strength Neurologic: Alert and oriented, moving all extremities, normal speech, no focal weakness, no cerebellar signs Skin: No rash Psych: Normal mood Result Diagram: 01/30/17 1348 Results 24 hrs Laboratory Tests Test 01/30/17 13:48 White Blood Count 5.010^3/ul Red Blood Count 3.5110^6/ul Hemoglobin 10.6g/dl Hematocrit 32.8% Mean Corpuscular Volume 93.4fl Mean Corpuscular Hemoglobin 30.2pg Mean Corpuscular Hemoglobin Concent 32.3g/dl Red Cell Distribution Width 18.6% Platelet Count 03224^3/UL Mean Platelet Volume 12.1fl Neutrophils % 76.4% Lymphocytes % 10.5% Monocytes % 9.5% Eosinophils % 2.2% Basophils % 1.0% Nucleated Red Blood Cells % 0.0/100WBC Neutrophils # 3.810^3/ul Lymphocytes # 0.510^3/ul Monocytes # 0.510^3/ul Eosinophils # 0.110^3/ul Basophils # 0.110^3/ul Nucleated Red Blood Cells # 0.010^3/ul Prothrombin Time 16.4Sec Prothrombin Time Ratio 1.3 INR International Normalized Ratio 1.31 Activated Partial Thromboplast Time 30.8Sec Current Medications Medications (Trade) Dose Ordered Sig/Lisa Route PRN Reason Start Time Stop Time Status Last Admin Dose Admin Morphine Sulfate (morphine) 4 mg ONCE STAT IV 01/30/17 12:21 01/30/17 12:22 DC 01/30/17 13:55 Ondansetron HCl (Zofran Inj) 4 mg ONCE STAT IV 01/30/17 12:21 01/30/17 12:22 DC 01/30/17 13:54 Procedures/MDM EKG, MONITORS, & DIAGNOSTIC IMAGING: Large volume therapeutic paracentesis performed by interventional radiology. LAB INTERPRETATION: No significant coagulopathy noted. MEDICAL DECISION MAKING: The patient presents with abdominal ascites likely secondary to cirrhosis. Patient does not exhibit any signs or symptoms concerning for complications of cirrhosis such as GI bleed, hepatic encephalopathy or spontaneous bacterial peritonitis. There is no indication currently for diagnostic paracentesis. The patient will benefit from large volume therapeutic paracentesis by interventional radiology. If the patient remains stable without evidence of hemodynamic compromise secondary to fluid shifts the patient can be safely discharged home with close primary care and hepatology follow-up. ER COURSE: The patient had successful large volume therapeutic paracentesis. The patient remained hemodynamically stable and otherwise well-appearing. The patient is safe for discharge home. I kept the patient and/or family informed of laboratory and diagnostic imaging results throughout the emergency room course. DISPOSITION PLAN: We discussed follow up with the patient's primary care doctor within 24 to 48 hours as needed. We also discussed return to the emergency room for worsening symptoms or worsening condition. Discharge Medications: None Departure Diagnosis: Primary Impression: Ascites Ascites type: due to alcoholic cirrhosis Qualified Code: K70.31 - Ascites due to alcoholic cirrhosis Condition: Stable CLINTON TAMAYO MD Jan 30, 2017 13:50
[2017-01-30 14:03] LABS: ADD SCAN DIFF NO
[2017-01-30 14:09] LABS: HEMATOCRIT 32.8 % (42.0-52.0); HEMOGLOBIN 10.6 g/dl (14.0-18.0); RED BLOOD COUNT 3.51 10^6/ul (4.70-6.10)
[2017-01-30 14:10] LABS: MEAN CORPUSCULAR HEMOGLOBIN 30.2 pg (29.0-33.0); MEAN CORPUSCULAR HGB CONC 32.3 g/dl (32.0-37.0); MEAN CORPUSCULAR VOLUME 93.4 fl (82.0-101.0); MEAN PLATELET VOLUME 12.1 fl (7.4-10.4); PLATELET COUNT 105 10^3/UL (140-440); RED CELL DISTRIBUTION WIDTH 18.6 % (11.5-14.5)
[2017-01-30 14:11] LABS: EOSINOPHILS # 0.1 10^3/ul (0.0-0.5); EOSINOPHILS % 2.2 % (0.0-7.0); LYMPHOCYTES # 0.5 10^3/ul (0.8-2.9); LYMPHOCYTES % 10.5 % (15.0-51.0); MONOCYTE # 0.5 10^3/ul (0.3-0.9); MONOCYTES % 9.5 % (0.0-11.0); NEUTROPHIL # 3.8 10^3/ul (1.6-7.5); NEUTROPHILS % 76.4 % (39.0-77.0)
[2017-01-30 14:12] LABS: BASOPHIL # 0.1 10^3/ul (0.0-0.1)
[2017-01-30 14:15] LABS: ALBUMIN 2.9 g/dl (3.3-4.9)
[2017-01-30 14:16] LABS: POTASSIUM 3.7 mmol/L (3.5-5.1)
[2017-01-30 14:18] LABS: BILIRUBIN,INDIRECT 0.4 mg/dl (0-1.1); BILIRUBIN,TOTAL 0.4 mg/dl (0.2-1.3); CREATININE 0.79 mg/dl (0.61-1.24)
[2017-01-30 14:19] LABS: ALBUMIN/GLOBULIN RATIO 0.74; CALCIUM 8.6 mg/dl (8.4-10.2); INR 1.31; PROTIME 16.4 Sec (12.2-14.2); PT RATIO 1.3; TOTAL PROTEIN 6.8 g/dl (6.1-8.1)
[2017-01-30 14:21] LABS: PARTIAL THROMBOPLASTIN TIME 30.8 Sec (25.0-35.0)
[2017-01-30] MEDS ORDERED: LIDOCAINE 1% (MPF) 5 ML VIAL ONE (15:26)
[2017-01-30 16:57] VITALS: BP 113/65; PULSE 70; RESP 18; TEMP 97.5
--- NOTE | 2017-01-30 17:00 | RADRPT ---
PROCEDURE: US guided paracentesis CLINICAL INDICATION: Ascites TECHNIQUE: Multiple sonographic images were obtained through the patient's abdomen. A site in the patient's RIGHT lower abdomen was selected and marked. The area was prepped and draped in the usual sterile fashion. 1% lidocaine was utilized. A 19-gauge Yueh needle was advanced into the peritonea l space and the introducer was connected to a vacuum drainage bottle. A total of 9400 cc of clear y ellow fluid were drained at the end of the procedure. The patient tolerated the procedure well. The specimen was sent for laboratory evaluation. COMPARISON: None FINDINGS: Ascites. RPTAT: AA IMPRESSION: Successful ultrasound-guided paracentesis. Physician Mica Date Time Electronically viewed and signed by Physician Mica on 01/30/2017 17:00 /
== END 2017-01-30 16:59 | disposition home or self-care (01) ==
LOC: E/R 11:19
DX: K70.31 Alcoholic cirrhosis of liver with ascites (principal); E11.9 Type 2 diabetes mellitus without complications; N18.6 End stage renal disease; Z79.4 Long term (current) use of insulin
CPT/HCPCS: 36415; 80053; 85025; 85610; 85730; 96374; 96375; J2270; J2405; Z7502; Z7610

== ENCOUNTER 2017-02-04 10:56 | Emergency (ER) | payer OTHER ==
[~2017-02-04] VITALS: Ht 170.2 cm; Wt 75.0 kg
[2017-02-04 11:17] VITALS: Ht 170.2 cm; Wt 75.0 kg
[2017-02-04] MEDS ORDERED: LIDOCAINE 1% (MPF) 5 ML VIAL ONE (13:44)
--- NOTE | 2017-02-04 14:25 | ERD ---
ER Documentation Chief Complaint Date/Time DATE: 02/04/17 TIME: 14:23 Chief Complaint ABDOMINAL DISTENTION HPI Patient is a 56-year-old male with cirrhosis who presents for a paracentesis. The patient needs a paracentesis. He is frequently in the emergency department for the same. His last paracentesis was 5 days ago when he had laboratory studies done. The patient has had no fevers. He is in his usual state of health. ROS All systems reviewed and are negative except as per history of present illness. Medications Home Meds Active Scripts Insulin Aspart* (Novolog Insulin Pen*) 100 Unit/Ml Soln, 10 UNIT SC WITH MEALS BEDTIME for 28 Days Prov:JERZY BENSON MD 08/27/16 Reported Medications Insulin Glargine* (Lantus*) 100 Unit/Ml Soln, 35 UNIT SC QHS, #1 VIAL 08/23/16 Losartan Potassium* (Cozaar*) 25 Mg Tablet, 25 MG PO DAILY, #30 TAB 08/23/16 Pantoprazole* (Protonix*) 40 Mg Tablet.dr, 40 MG PO DAILY, TAB 08/23/16 Allergies Allergies: Coded Allergies: No Known Drug Allergy (Verified Allergy, Unknown, 01/30/17) PMhx/Soc Positive for cirrhosis History of Surgery: No Anesthesia Reaction: No Hx Neurological Disorder: No Hx Respiratory Disorders: No Hx Cardiac Disorders: No Hx Psychiatric Problems: No Hx Miscellaneous Medical Probl: No Hx Alcohol Use: No Hx Substance Use: No Hx Tobacco Use: No Smoking Status: Never smoker FmHx Family History: No diabetes Physical Exam Vitals Vital Signs Date Time Temp Pulse Resp B/P Pulse Ox O2 Delivery O2 Flow Rate FiO2 02/04/17 13:11 98.2 83 20 105/70 100 Room Air 02/04/17 11:17 98.2 83 20 105/70 100 Physical Exam Const: No acute distress Head: Atraumatic Eyes: Normal Conjunctiva ENT: Normal External Ears, Nose and Mouth. Neck: Full range of motion..~ No meningismus. Resp: Clear to auscultation bilaterally Cardio: Regular rate and rhythm, no murmurs Abd: Distended abdomen with positive fluid wave Skin: No petechiae or rashes Back: No midline or flank tenderness Ext: No cyanosis, or edema Neur: Awake and alert Psych: Normal Mood and Affect Results 24 hrs Current Medications Medications (Trade) Dose Ordered Sig/Lisa Route PRN Reason Start Time Stop Time Status Last Admin Dose Admin Lidocaine (Xylocaine 1% (Mpf)) 5 ml STK-MED ONCE .ROUTE 02/04/17 13:44 02/04/17 13:45 DC Procedures/MDM Ultrasound-guided paracentesis to be done by radiology. Patient is a 56-year-old male presents with acute ascites. I doubt spontaneous bacterial peritonitis. I believe outpatient management is appropriate. The patient had an ultrasound-guided paracentesis performed by radiology. The patient will be discharged and can follow-up with his primary doctor within 1 week. The patient can return sooner for any worsening symptoms. Departure Diagnosis: Primary Impression: Ascites Ascites type: other type Qualified Code: R18.8 - Other ascites Additional Impression: Abdominal pain Abdominal location: generalized Qualified Code: R10.84 - Generalized abdominal pain Condition: Fair Patient Instructions: Ascites Additional Instructions: Call your primary care doctor TOMORROW for an appointment during the next 1 WEEK.Tell the racing secretary and handicapper that you were referred from this facility.See the doctor sooner or return here if your condition worsens before your appointment time. ALESIA CLAROS MD Feb 04, 2017 14:24
--- NOTE | 2017-02-04 15:40 | EN ---
Date/Time of Note Date/Time of Note DATE: 02/04/17 TIME: 15:39 ER Progress Note Patient was complaining of some pain at the right upper quadrant catheter insertion site. Patient had 2 insertion sites in the right abdomen. He says he having some pain around the right most side described as sharp and constant. He was complaining of this just before discharge and nurse came to me asking me what to do. The patient has some tenderness at this specific area is moderate in nature there is no leaking of fluid he has a nonsurgical abdomen there is no rebound or guarding only pain around the site. I offered the patient a CT scan of the abdomen with contrast to rule out any type of intra- abdominal injury including perforation of the intestinal tract that could have been done accident during the paracentesis. Patient said he does not want to do this and wants to go home and will wait 2 or 3 hours to see how things go and if he still has pain he will return. I told him that a perforation or liver injury can be very serious complication to reconsider however does not want to do this and wants to go home and wait to see how he feels ANDRIY GARCIA DO Feb 04, 2017 15:40
--- NOTE | 2017-02-04 15:47 | RADRPT ---
PROCEDURE: US guided paracentesis CLINICAL INDICATION: Ascites TECHNIQUE: Multiple sonographic images were obtained through the patient's abdomen. A site in the patient's RIGHT lower abdomen was selected and marked. The area was prepped and draped in the usual sterile fashion. 1% lidocaine was utilized. A 19-gauge Yueh needle was advanced into the peritonea l space and the introducer was connected to a vacuum drainage bottle. A total of 4200 cc of clear y ellow fluid were drained at the end of the procedure. The patient tolerated the procedure well. COMPARISON: None FINDINGS: Ascites. RPTAT: AA IMPRESSION: Successful ultrasound-guided paracentesis. Physician Mica Date Time Electronically viewed and signed by Physician Mica on 02/04/2017 15:46 /
[2017-02-04 15:49] VITALS: BP 109/65; PULSE 80; RESP 20; TEMP 98.6
== END 2017-02-04 15:51 | disposition home or self-care (01) ==
LOC: E/R 10:56
DX: R18.8 Other ascites (principal); R10.84 Generalized abdominal pain; E11.9 Type 2 diabetes mellitus without complications; Z79.4 Long term (current) use of insulin
CPT/HCPCS: Z7502; Z7610

== ENCOUNTER 2017-02-06 11:06 | Emergency (ER) | payer OTHER ==
[~2017-02-06] VITALS: Ht 160 cm; Wt 76.0 kg
[2017-02-06 11:08] VITALS: Ht 160 cm; Wt 76.0 kg
[2017-02-06] MEDS ORDERED: morphine 2 MG INJ IV STA (12:05)
[2017-02-06 12:23] LABS: ADD SCAN DIFF NO
[2017-02-06 12:25] LABS: ABNORMAL IP MESSAGE 1; BASOPHILS % 0.7 % (0.0-2.0); EOSINOPHILS # 0.1 10^3/ul (0.0-0.5); EOSINOPHILS % 2.2 % (0.0-7.0); HEMATOCRIT 30.2 % (42.0-52.0); HEMOGLOBIN 10.1 g/dl (14.0-18.0); LYMPHOCYTES # 0.4 10^3/ul (0.8-2.9); LYMPHOCYTES % 10.9 % (15.0-51.0); MEAN CORPUSCULAR HEMOGLOBIN 30.9 pg (29.0-33.0); MEAN CORPUSCULAR HGB CONC 33.4 g/dl (32.0-37.0); MEAN CORPUSCULAR VOLUME 92.4 fl (82.0-101.0); MEAN PLATELET VOLUME 11.3 fl (7.4-10.4); MONOCYTE # 0.5 10^3/ul (0.3-0.9); MONOCYTES % 11.7 % (0.0-11.0); PLATELET COUNT 122 10^3/UL (140-415); RED BLOOD COUNT 3.27 10^6/ul (4.70-6.10); RED CELL DISTRIBUTION WIDTH 17.7 % (11.5-14.5)
[2017-02-06 12:35] LABS: ALBUMIN 2.5 g/dl (3.3-4.9)
[2017-02-06 12:36] LABS: POTASSIUM 3.2 mmol/L (3.5-5.1)
[2017-02-06 12:38] LABS: ALBUMIN/GLOBULIN RATIO 0.67; BILIRUBIN,INDIRECT 0.4 mg/dl (0-1.1); BILIRUBIN,TOTAL 0.4 mg/dl (0.2-1.3); CREATININE 0.78 mg/dl (0.61-1.24); TOTAL PROTEIN 6.2 g/dl (6.1-8.1)
--- NOTE | 2017-02-06 14:11 | RADRPT ---
PROCEDURE: CT scan of the abdomen and pelvis without IV contrast. CLINICAL INDICATION: Abdominal pain. TECHNIQUE: Thin section axial, coronal and sagittal images were performed through the abdomen and pelvis without contrast. Radiation Dose: CTDI: 14.3 and DLP: 838.2 One or more of the following dose reduction techniques were used: - Automated exposure control. - Adjustment of the mA and/or kV according to patient size. Use of iterative reconstruction technique. COMPARISON: Chest x-ray 11/15/2016 06:18 a.m. FINDINGS: Lungs and pleural spaces: The lungs are hyperinflated. The main pulmonary artery and pulmonary kamari ry outflow tracts are normal. There are vascular calcifications in the coronary arteries. The hear t is normal in size. There is a trace pericardial effusion. No pulmonary contusion is identified. There are peripheral ground-glass infiltrates in the right lower lobe consistent with atelectasis. There is plate-like atelectasis in the right middle lobe adjacent to the fissure. There is additio nal plate-like atelectasis in the periphery of the lingula and left lower lobe. No pleural effusion is noted.. Soft tissues : There are bilateral inguinal hernias containing fat. Heart: Heart is normal in size. The liver, common bile duct and gallbladder: The liver has a nodular contour and is inhomogeneous. The portal vein is enlarged. There are gallstones in the gallbladder. No gallbladder wall thickening is noted. There is a large amount of ascites. Gastrointestinal: The stomach is incompletely distended and this accounts for gastric wall thickenin g. The small bowel loops have a normal caliber. There is fecal material throughout the colon. Pancreas: There are calcifications in the pancreas consistent with chronic pancreatitis. No pancrea tic masses identified. Kidneys, bladder and adrenal glands : The adrenal glands are normal. A subcapsular 8 mm cyst is note d off the dorsal medial mid pole of the right kidney. A 2 cm benign cyst arises off the upper pole of the right kidney. There is no evidence of a solid mass or hydronephrosis involving either kidney . There is no evidence of an obstructing nephrolith or ureterolith. There is no evidence of bladde r wall thickening or of the bladder stone. Spleen: The is enlarged measuring 14.5 cm. Lymph nodes: No enlarged retroperitoneal lymph nodes are identified. Reproductive system and pelvis : There are calcifications in the vas deferens. The prostate gland a nd seminal vesicles are normal. There are bilateral inguinal hernias containing fat. Bony elements: There are degenerative osteophytes in the thoracic and lumbar spine. There are degen erative changes involving the SI joints. The hip joints are bilaterally symmetric. Vasculature: Atherosclerotic vascular calcifications are identified in the abdominal aorta and its b ranches. IMPRESSION: 1. Pulmonary hyperinflation with scattered areas of plate-like atelectasis and ground-glass periphe ral atelectasis in the bases of the lungs. 2. Cirrhosis of the liver with ascites. 3. Hepatosplenomegaly. 4. Cholelithiasis. 5. Chronic pancreatitis. 6. Constipation. 7. Benign renal cysts. Largest right renal cyst is in the upper pole measuring 2.2 cm. 8. Atherosclerotic vascular disease. 9. Spondylosis of the thoracic and lumbosacral spine. 10. Calcifications of the vas deferens. 11. Bilateral inguinal hernias containing fat. RPTAT:AAJJ Physician Rojelio Date Time Electronically viewed and signed by Miguel Marin Physician on 02/06/2017 14:10 /
--- NOTE | 2017-02-06 14:45 | RADRPT ---
PROCEDURE: Chest x-ray CLINICAL INDICATION: Shortness of breath TECHNIQUE: Chest single view COMPARISON: To 11/29/2016 FINDINGS: The heart is normal in size. The pulmonary vessels are normal in caliber. There is persistent elev ation right hemidiaphragm with right lower lobe linear atelectasis which is improved from prior exam ination. Lungs otherwise clear. Costophrenic angles sharp. Bony thorax is unremarkable. IMPRESSION: 1. Persistent elevation of right hemidiaphragm with right lower lobe atelectasis. 2. Lungs otherwise clear RPTAT: HH .Alfie Cline MD, MD Date Time Electronically viewed and signed by .Alfie Cline MD, on 02/06/2017 14:45 .W/
[2017-02-06 14:49] LABS: INR 1.26; PROTIME 15.9 Sec (12.2-14.2); PT RATIO 1.2
[2017-02-06 14:50] LABS: PARTIAL THROMBOPLASTIN TIME 34.1 Sec (25.0-35.0)
[2017-02-06] MEDS ORDERED: LIDOCAINE 1% (MPF) 5 ML VIAL ONE (16:49)
--- NOTE | 2017-02-06 17:27 | RADRPT ---
PROCEDURE: Ultrasound guided paracentesis. CLINICAL INDICATION: Ascites and shortness of breath. COMPARISON: 02/04/2017. TECHNIQUE: The risks, benefits, and alternatives were explained to the patient and/or the patient's family, inc luding but not limited to bleeding, infection, pain, visceral or vascular damage, shock, and . The patient and/or the patient's family understood the risks and the alternatives and wished to pro ceed with the procedure. Informed written consent was obtained. A procedural time out was performed . The patient's name, date of , and procedure to be performed were verified. Utilizing ultrasound guidance, optimal location for entry to the peritoneal cavity was ascertained. The overlying skin was prepped and draped in the usual sterile fashion. Approximately 10 ml of 1% Xylocaine was injected locally for pain control. Using ultrasound guidance, an 8 Lao catheter wa s introduced into the peritoneal cavity in the right lower quadrant without difficulty. FINDINGS: Initial images demonstrate ascites. Approximately 7.65 liters of serous fluid was aspirated and dis carded. The patient tolerated the procedure well without complication. IMPRESSION: 1. Successful ultrasound-guided paracentesis. RPTAT: QQ .Thierno Ventura MD, Date Time Electronically viewed and signed by .Thierno Ventura MD, on 02/06/2017 17:27 .R/
[2017-02-06 18:01] VITALS: BP 111/56; PULSE 60; RESP 17; TEMP 97.5
[2017-02-06] MEDS ORDERED: INSULIN LISPRO 100 UNIT/ML VIAL SC STA (18:21)
[2017-02-06] MEDS ORDERED: POTASSIUM CHLORIDE (SR) 20 MEQ TAB PO STA (18:21)
--- NOTE | 2017-02-06 19:03 | ERD ---
ER Documentation Chief Complaint Date/Time DATE: 02/06/17 TIME: 18:51 Chief Complaint CAME IN VIA INTAKE DUE TO NEED FOR PARACENTHESIS HPI 56-year-old male comes in for a paracentesis saying that he is got abdominal distention second to his liver failure. He denies any fevers or chills. States this is the same stretching like pain that he gets whenever he has too much fluid in his abdomen. He states he was here 2 days ago and they were not able to remove fluid. Denies shortness of breath I reviewed the patient's EMR and I see that there were complications in the ER doctor wanted to get a CAT scan on the patient with the patient declines CAT scan and decided to go home and see if he felt better instead. ROS All systems reviewed and are negative except as per history of present illness. Medications Home Meds Active Scripts Insulin Aspart* (Novolog Insulin Pen*) 100 Unit/Ml Soln, 10 UNIT SC WITH MEALS BEDTIME for 28 Days Prov:JERZY BENSON MD 08/27/16 Reported Medications Insulin Glargine* (Lantus*) 100 Unit/Ml Soln, 35 UNIT SC QHS, #1 VIAL 08/23/16 Losartan Potassium* (Cozaar*) 25 Mg Tablet, 25 MG PO DAILY, #30 TAB 08/23/16 Pantoprazole* (Protonix*) 40 Mg Tablet.dr, 40 MG PO DAILY, TAB 08/23/16 Allergies Allergies: Coded Allergies: No Known Drug Allergy (Verified Allergy, Unknown, 01/30/17) PMhx/Soc History of Surgery: No Anesthesia Reaction: No Hx Neurological Disorder: No Hx Respiratory Disorders: No Hx Cardiac Disorders: No Hx Psychiatric Problems: No Hx Miscellaneous Medical Probl: No Hx Alcohol Use: No Hx Substance Use: No Hx Tobacco Use: No Physical Exam Vitals Vital Signs Date Time Temp Pulse Resp B/P Pulse Ox O2 Delivery O2 Flow Rate FiO2 02/06/17 18:01 97.5 60 17 111/56 100 Room Air 02/06/17 11:08 98.3 101 18 110/75 99 Physical Exam Const: [] Mild distress, uncomfortable holding his abdomen Head: Atraumatic Eyes: Normal Conjunctiva ENT: Normal External Ears, Nose and Mouth. Neck: Full range of motion..~ No meningismus. Resp: Clear to auscultation bilaterally Cardio: Regular rate and rhythm, no murmurs Abd: Soft, no specific tenderness, marked symmetrical distention of entire abdomen,. Skin: No petechiae or rashes Back: No midline or flank tenderness Ext: No cyanosis, or edema Neur: Awake and alert and oriented 3, no focal deficits Psych: Normal Mood and Affect Result Diagram: 02/06/17 1220 02/06/17 1220 Results 24 hrs Laboratory Tests Test 02/06/17 12:20 02/06/17 14:30 02/06/17 18:26 White Blood Count 4.010^3/ul Red Blood Count 3.2710^6/ul Hemoglobin 10.1g/dl Hematocrit 30.2% Mean Corpuscular Volume 92.4fl Mean Corpuscular Hemoglobin 30.9pg Mean Corpuscular Hemoglobin Concent 33.4g/dl Red Cell Distribution Width 17.7% Platelet Count 40905^3/UL Mean Platelet Volume 11.3fl Neutrophils % 74.0% Lymphocytes % 10.9% Monocytes % 11.7% Eosinophils % 2.2% Basophils % 0.7% Nucleated Red Blood Cells % 0.0/100WBC Neutrophils # 3.010^3/ul Lymphocytes # 0.410^3/ul Monocytes # 0.510^3/ul Eosinophils # 0.110^3/ul Basophils # 0.010^3/ul Nucleated Red Blood Cells # 0.010^3/ul Sodium Level 131mmol/L Potassium Level 3.2mmol/L Chloride Level 105mmol/L Carbon Dioxide Level 16mmol/L Anion Gap 13 Blood Urea Nitrogen 14mg/dl Creatinine 0.78mg/dl Glucose Level 366mg/dl Calcium Level 8.0mg/dl Total Bilirubin 0.4mg/dl Direct Bilirubin 0.00mg/dl Indirect Bilirubin 0.4mg/dl Aspartate Amino Transf (AST/SGOT) 58IU/L Alanine Aminotransferase (ALT/SGPT) 43IU/L Alkaline Phosphatase 158IU/L Total Protein 6.2g/dl Albumin 2.5g/dl Globulin 3.70g/dl Albumin/Globulin Ratio 0.67 Lipase 25U/L Prothrombin Time 15.9Sec Prothrombin Time Ratio 1.2 INR International Normalized Ratio 1.26 Activated Partial Thromboplast Time 34.1Sec Bedside Glucose 243mg/dL Current Medications Medications (Trade) Dose Ordered Sig/Lisa Route PRN Reason Start Time Stop Time Status Last Admin Dose Admin Morphine Sulfate (morphine) 2 mg ONCE STAT IV 02/06/17 12:05 02/06/17 12:09 DC 02/06/17 13:06 Lidocaine (Xylocaine 1% (Mpf)) 5 ml STK-MED ONCE .ROUTE 02/06/17 16:49 02/06/17 16:50 DC Potassium Chloride (Klor-Con 20) 20 meq ONCE STAT PO 02/06/17 18:21 02/06/17 18:30 DC 02/06/17 18:34 Insulin Human Lispro (Humalog) 3 unit ONCE STAT SC 02/06/17 18:21 02/06/17 18:30 DC Procedures/MDM Ascites secondary to cirrhosis. This patient comes in often for his paracentesis. He does say that he has care established at [facility] but this is easier to come to for paracenteses. He is on a transplant list currently. So that his pain is the same as usual pain. I ordered a workup including a CAT scan because of the difficulty obtaining proper fluid last time. He wanted to make sure there was nothing out of the ordinary anatomically in his abdomen that would cause an acute problem obtaining fluid. CT showed ascites with no other changes from prior CT. I have very low suspicion for SBP as the patient feels well. A paracentesis was performed with ultrasound guidance in radiology after which the patient said he is completely asymptomatic. His laboratories are stable with prior values with his mild pancytopenia. He is smiling happy and says that his symptoms are resolved. Was going to give him some insulin for his hyperglycemia but he said that he is going to go home and take his own insulin. Sugar was rechecked and was already decreasing. I did give him a potassium pill for his low potassium. Hearing and primary care follow-up and once again I am giving him instructions to obtain a referral for obtaining outpatient paracenteses. CT abdomen pelvis interpretation: Cirrhosis with ascites. I see no obstruction , no free air, no abnormal fat stranding, no fracture Departure Diagnosis: Primary Impression: Ascites Additional Impressions: Hyperglycemia Abdominal pain Hypokalemia Condition: Stable Patient Instructions: Ascites, Diabetic Hyperglycemia Additional Instructions: Call your primary care doctor TOMORROW for an appointment during the next 1-2 days. Get a referral for a stone sawyer for outpatient paracentesis. See the doctor sooner or return here if your condition worsens before your appointment time. GALINDO BAILEY DO Feb 06, 2017 19:02
== END 2017-02-06 18:50 | disposition home or self-care (01) ==
LOC: E/R 11:06
DX: R18.8 Other ascites (principal); E11.65 Type 2 diabetes mellitus with hyperglycemia; R10.9 Unspecified abdominal pain; E87.6 Hypokalemia; Z79.4 Long term (current) use of insulin
CPT/HCPCS: 36415; 71010; 74176; 80053; 82962; 83690; 85025; 85610; 85730; 96374; J2270; Z7502; Z7610

== ENCOUNTER 2017-02-10 10:06 | Emergency (ER) | payer OTHER ==
[~2017-02-10] VITALS: Ht 167.6 cm; Wt 75.0 kg
[2017-02-10 10:14] VITALS: Ht 167.6 cm; Wt 75.0 kg
[2017-02-10] MEDS ORDERED: ONDANSETRON (ODT) 4 MG TAB ODT STA (11:25)
[2017-02-10] MEDS ORDERED: LIDOCAINE 1% (MPF) 5 ML VIAL ONE (13:17)
[2017-02-10 13:20] VITALS: BP 144/86; PULSE 74; RESP 19; TEMP 97.9
--- NOTE | 2017-02-10 14:07 | RADRPT ---
PROCEDURE: Ultrasound guided paracentesis. CLINICAL INDICATION: Ascites and shortness of breath. COMPARISON: No prior studies are available for comparison. TECHNIQUE: The risks, benefits, and alternatives were explained to the patient and/or the patient's family, inc luding but not limited to bleeding, infection, pain, visceral or vascular damage, shock, and . The patient and/or the patient's family understood the risks and the alternatives and wished to pro ceed with the procedure. Informed written consent was obtained. A procedural time out was performed . The patient's name, date of , and procedure to be performed were verified. Utilizing ultrasound guidance, optimal location for entry to the peritoneal cavity was ascertained. The overlying skin was prepped and draped in the usual sterile fashion. Approximately 10 ml of 1% Xylocaine was injected locally for pain control. Using ultrasound guidance, an 8 [place] catheter wa s introduced into the peritoneal cavity in the right lower quadrant without difficulty. FINDINGS: Initial images demonstrate ascites. Approximately 8.9 liters of serous fluid was aspirated and disc arded. The patient tolerated the procedure well without complication. IMPRESSION: 1. Successful ultrasound-guided paracentesis. RPTAT: QQ .Thierno Ventura MD, Date Time Electronically viewed and signed by .Thierno Ventura MD, on 02/10/2017 14:07 .R/
--- NOTE | 2017-02-10 14:42 | ERD ---
ER Documentation Chief Complaint Date/Time DATE: 02/10/17 TIME: 14:39 Chief Complaint Patient here for fluid removal Hx of ascites HPI 56-year-old man complains of increased abdominal distention over the last few days and is requesting paracentesis. Is a long history of recurrent ascites and requires paracentesis on a weekly basis. He denies fevers or chills, no melena, no blood per rectum, no chest pain or shortness of breath, no recent confusion. ROS All systems reviewed and are negative except as per history of present illness. Medications Home Meds Active Scripts Insulin Aspart* (Novolog Insulin Pen*) 100 Unit/Ml Soln, 10 UNIT SC WITH MEALS BEDTIME for 28 Days Prov:JERZY BENSON MD 08/27/16 Reported Medications Insulin Glargine* (Lantus*) 100 Unit/Ml Soln, 35 UNIT SC QHS, #1 VIAL 08/23/16 Losartan Potassium* (Cozaar*) 25 Mg Tablet, 25 MG PO DAILY, #30 TAB 08/23/16 Pantoprazole* (Protonix*) 40 Mg Tablet.dr, 40 MG PO DAILY, TAB 08/23/16 Allergies Allergies: Coded Allergies: No Known Drug Allergy (Verified Allergy, Unknown, 01/30/17) PMhx/Soc Alcoholic cirrhosis, hypertension, gastritis, pancreatitis, diabetes mellitus, recurrent ascites History of Surgery: No Anesthesia Reaction: No Hx Neurological Disorder: No Hx Respiratory Disorders: No Hx Cardiac Disorders: No Hx Psychiatric Problems: No Hx Miscellaneous Medical Probl: No Hx Alcohol Use: No Hx Substance Use: No Hx Tobacco Use: No Smoking Status: Never smoker FmHx Family History: diabetes Physical Exam Vitals Vital Signs Date Time Temp Pulse Resp B/P Pulse Ox O2 Delivery O2 Flow Rate FiO2 02/10/17 13:20 97.9 74 19 144/86 100 Room Air 02/10/17 10:14 97.1 97 20 110/75 98 Physical Exam GENERAL: Well-developed, well-nourished, well-hydrated, in no apparent distress , looks nontoxic in appearance HEENT: Moist mucous membranes, pink conjunctiva, no cervical spine tenderness or step-off deformities, no goiter, no jaundice or icterus, extraocular movements intact without pain. No submandibular induration, and no pharyngeal erythema NEURO: Alert and oriented 3, cranial nerves II through XII intact bilaterally, pupils equal round reactive to light, no focal deficits or facial asymmetry, sensation intact distally Strength 5/5 in upper and lower extremities bilaterally CARDIAC: Regular rate and rhythm, no murmurs rubs or gallops LUNGS: Clear bilaterally no wheezing crackles or stridor ABDOMEN: Protuberant, tense, no rebound, no tenderness, no psoas sign no obturator sign. Normoactive bowel sounds SKIN: Warm and dry to touch, no abrasions, contusions, or hematomas, no lacerations, no ecchymosis, no target lesions, and without ulcers EXTREMITIES: No clubbing cyanosis or edema, calves are bilaterally symmetrical, no Homans sign, no popliteal cord sign. Distal pulses equal and bilateral PSYCH: Normal affect without agitation or irritability Results 24 hrs Current Medications Medications (Trade) Dose Ordered Sig/Lisa Route PRN Reason Start Time Stop Time Status Last Admin Dose Admin Ondansetron HCl (Zofran Odt) 4 mg ONCE STAT ODT 02/10/17 11:25 02/10/17 11:26 DC Lidocaine (Xylocaine 1% (Mpf)) 5 ml STK-MED ONCE .ROUTE 02/10/17 13:17 02/10/17 13:18 DC Procedures/MDM Ultrasound-guided paracentesis was performed and we removed about 9 L of ascitic fluid. Patient felt much better. Repeat abdominal examination revealed a soft nontender belly. Patient feels much better at this time, and vital signs are normal, symptoms have improved. I did give strict instructions to return to the ED if symptoms continue or worsen, patient will otherwise follow-up with primary care physician. Patient understood instructions and agreed to plan. Departure Diagnosis: Primary Impression: Ascites Ascites type: other type Qualified Code: R18.8 - Other ascites Condition: Good Patient Instructions: Ascites Referrals: JESSICA LAY (PCP) DUONG SALMERON MD February 10, 2017 14:42
== END 2017-02-10 13:25 | disposition home or self-care (01) ==
LOC: E/R 10:06
DX: R18.8 Other ascites (principal); I10 Essential (primary) hypertension; E11.9 Type 2 diabetes mellitus without complications; Z79.4 Long term (current) use of insulin
CPT/HCPCS: Z7502; Z7610

== ENCOUNTER 2017-02-14 11:14 | Emergency (ER) | payer OTHER ==
[~2017-02-14] VITALS: Wt 73.5 kg
[2017-02-14] MEDS: LIDOCAINE 1% (MPF) 5 ML VIAL ONE ×2 (12:10→12:23)
[2017-02-14 13:12] VITALS: BP 114/73; PULSE 102; RESP 20; TEMP 98
--- NOTE | 2017-02-14 13:22 | ERD ---
ER Documentation Chief Complaint Date/Time DATE: 02/14/17 TIME: 13:20 Chief Complaint HERE FOR PARACENTHESIS, LAST ONE 3 DAYS AGO . HPI 56-year-old male with ascites and diabetes who presents with ascites. The patient gets paracentesis frequently usually every 3-5 days. His last paracentesis was on Friday. He had subjective fever yesterday but did not take his temperature. He has abdominal distention but no pain. Upon review of old medical records the patient has multiple visits with similar presentations. ROS All systems reviewed and are negative except as per history of present illness. Medications Home Meds Active Scripts Insulin Aspart* (Novolog Insulin Pen*) 100 Unit/Ml Soln, 10 UNIT SC WITH MEALS BEDTIME for 28 Days Prov:JERZY BENSON MD 08/27/16 Reported Medications Insulin Glargine* (Lantus*) 100 Unit/Ml Soln, 35 UNIT SC QHS, #1 VIAL 08/23/16 Losartan Potassium* (Cozaar*) 25 Mg Tablet, 25 MG PO DAILY, #30 TAB 08/23/16 Pantoprazole* (Protonix*) 40 Mg Tablet.dr, 40 MG PO DAILY, TAB 08/23/16 Allergies Allergies: Coded Allergies: No Known Drug Allergy (Verified Allergy, Unknown, 02/14/17) PMhx/Soc History of Surgery: No Anesthesia Reaction: No Hx Neurological Disorder: No Hx Respiratory Disorders: No Hx Cardiac Disorders: No Hx Psychiatric Problems: No Hx Miscellaneous Medical Probl: Yes (liver cirrhosis) Hx Alcohol Use: No Hx Substance Use: No Hx Tobacco Use: No Smoking Status: Former smoker FmHx Family History: diabetes Physical Exam Vitals Vital Signs Date Time Temp Pulse Resp B/P Pulse Ox O2 Delivery O2 Flow Rate FiO2 02/14/17 13:12 98.0 102 20 114/73 99 Room Air 02/14/17 11:17 98.0 94 21 111/71 99 Physical Exam Const: No acute distress Head: Atraumatic Eyes: Normal Conjunctiva ENT: Normal External Ears, Nose and Mouth. Neck: Full range of motion..~ No meningismus. Resp: Clear to auscultation bilaterally Cardio: Regular rate and rhythm, no murmurs Abd: Distended abdomen with positive fluid wave Skin: No petechiae or rashes Back: No midline or flank tenderness Ext: No cyanosis, or edema Neur: Awake and alert Psych: Normal Mood and Affect Results 24 hrs Current Medications Medications (Trade) Dose Ordered Sig/Lisa Route PRN Reason Start Time Stop Time Status Last Admin Dose Admin Lidocaine (Xylocaine 1% (Mpf)) 5 ml STK-MED ONCE .ROUTE 02/14/17 12:10 02/14/17 12:11 DC Procedures/MDM Patient is a 56-year-old male with ascites who presents for paracentesis. He had laboratory studies done on February 06 and I do not believe your needs repeat laboratory studies at this time. The patient does not have any signs of spontaneous bacterial peritonitis. I believe outpatient management is appropriate. The patient can follow-up with his primary doctor within 1 week. He can return for any worsening symptoms. He had an ultrasound-guided paracentesis performed by radiology. Departure Diagnosis: Primary Impression: Ascites Ascites type: other type Qualified Code: R18.8 - Other ascites Condition: Fair Patient Instructions: Ascites Referrals: JESSICA LAY (PCP) Additional Instructions: Call your primary care doctor TOMORROW for an appointment during the next 1-2 days.See the doctor sooner or return here if your condition worsens before your appointment time. ALESIA CLAROS MD February 14, 2017 13:22
--- NOTE | 2017-02-14 13:28 | RADRPT ---
PROCEDURE: Ultrasound guided paracentesis. CLINICAL INDICATION: Ascites and shortness of breath. COMPARISON: 02/10/2017. TECHNIQUE: The risks, benefits, and alternatives were explained to the patient and/or the patient's family, inc luding but not limited to bleeding, infection, pain, visceral or vascular damage, shock, and . The patient and/or the patient's family understood the risks and the alternatives and wished to pro ceed with the procedure. Informed written consent was obtained. A procedural time out was performed . The patient's name, date of , and procedure to be performed were verified. Utilizing ultrasound guidance, optimal location for entry to the peritoneal cavity was ascertained. The overlying skin was prepped and draped in the usual sterile fashion. Approximately 10 ml of 1% Xylocaine was injected locally for pain control. Using ultrasound guidance, an 8 [place] catheter wa s introduced into the peritoneal cavity in the right lower quadrant without difficulty. FINDINGS: Initial images demonstrate ascites. Approximately 8.2 liters of serous fluid was aspirated and disc arded. The patient tolerated the procedure well without complication. IMPRESSION: 1. Successful ultrasound-guided paracentesis. RPTAT: QQ .Thierno Ventura MD, Date Time Electronically viewed and signed by .Thierno Ventura MD, on 02/14/2017 13:28 .R/
== END 2017-02-14 13:12 | disposition home or self-care (01) ==
LOC: E/R 11:14
DX: R18.8 Other ascites (principal); E11.9 Type 2 diabetes mellitus without complications; Z87.891 Personal history of nicotine dependence; Z79.4 Long term (current) use of insulin
CPT/HCPCS: Z7502; Z7610

== ENCOUNTER 2017-02-17 17:21 | Emergency (ER) | payer OTHER ==
[~2017-02-17] VITALS: Wt 72.0 kg
--- NOTE | 2017-02-17 19:00 | ERA ---
ER Documentation Chief Complaint Date/Time DATE: 02/17/17 TIME: 19:00 Chief Complaint Abdominal distention HPI The patient is a 56-year-old male, presenting to the ER because of recurrent abdominal distention for the last couple days. He normally has some abdominocentesis every 3-5 days. He had abdominocentesis on May 17, 2017 when he had about 8 x 2 L removed. He denies fever, chills, neck pain, chest pain, dyspnea, dysuria, diarrhea, constipation Past medical history: Diabetes mellitus, cirrhosis ROS All systems reviewed and are negative except as per history of present illness. Medications Home Meds Active Scripts Ciprofloxacin Hcl* (Ciprofloxacin Hcl*) 500 Mg Tablet, 500 MG PO BID for 10 Days , TAB Prov:GAVIN CASTILLO MD 02/17/17 Ondansetron (Ondansetron Odt) 4 Mg Tab.rapdis, 4 MG PO Q6H Y for NAUSEA AND/OR VOMITING, #10 TAB Prov:GAVIN CASTILLO MD 02/17/17 Hydrocodone/Acetaminophen (Seneca 5-325 Tablet) 1 Each Tablet, 1 TAB PO Q6H Y for PAIN, #7 TAB Prov:GAVIN CASTILLO MD 02/17/17 Insulin Aspart* (Novolog Insulin Pen*) 100 Unit/Ml Soln, 10 UNIT SC WITH MEALS BEDTIME for 28 Days Prov:JERZY BENSON MD 08/27/16 Reported Medications Insulin Glargine* (Lantus*) 100 Unit/Ml Soln, 35 UNIT SC QHS, #1 VIAL 08/23/16 Losartan Potassium* (Cozaar*) 25 Mg Tablet, 25 MG PO DAILY, #30 TAB 08/23/16 Pantoprazole* (Protonix*) 40 Mg Tablet.dr, 40 MG PO DAILY, TAB 08/23/16 Allergies Allergies: Coded Allergies: No Known Drug Allergy (Verified Allergy, Unknown, 02/14/17) PMhx/Soc History of Surgery: No Anesthesia Reaction: No Hx Neurological Disorder: No Hx Respiratory Disorders: No Hx Cardiac Disorders: No Hx Psychiatric Problems: No Hx Miscellaneous Medical Probl: Yes (liver cirrhosis) Hx Alcohol Use: No Hx Substance Use: No Hx Tobacco Use: No Physical Exam Vitals Vital Signs Date Time Temp Pulse Resp B/P Pulse Ox O2 Delivery O2 Flow Rate FiO2 02/17/17 20:53 98.2 89 20 120/88 99 Room Air 02/17/17 17:25 98.0 79 18 111/76 99 Physical Exam Const: No acute distress. Head: Atraumatic. Eyes: Normal Conjunctiva. ENT: Normal External Ears, Nose and Mouth. Neck: Full range of motion. No meningismus. Resp: Clear to auscultation bilaterally. Cardio: Regular rate and rhythm, no murmurs. Abd: Soft, ascites, normal bowel sounds, vague and minimal tenderness Skin: No petechiae or rashes. Back: No midline or flank tenderness. Ext: No cyanosis, or edema. Neur: Awake and alert. No focal deficit Psych: Normal Mood and Affect. Result Diagram: 02/17/17190102/17/171901 Results 24 hrs Laboratory Tests Test 02/17/17 19:02 02/17/17 19:14 White Blood Count 5.710^3/ul Red Blood Count 3.7910^6/ul Hemoglobin 11.6g/dl Hematocrit 34.4% Mean Corpuscular Volume 90.8fl Mean Corpuscular Hemoglobin 30.6pg Mean Corpuscular Hemoglobin Concent 33.7g/dl Red Cell Distribution Width 16.6% Platelet Count 96766^3/UL Mean Platelet Volume 11.0fl Neutrophils % 70.6% Lymphocytes % 12.5% Monocytes % 12.9% Eosinophils % 2.3% Basophils % 1.2% Nucleated Red Blood Cells % 0.0/100WBC Neutrophils # 4.010^3/ul Lymphocytes # 0.710^3/ul Monocytes # 0.710^3/ul Eosinophils # 0.110^3/ul Basophils # 0.110^3/ul Nucleated Red Blood Cells # 0.010^3/ul Prothrombin Time 16.8Sec Prothrombin Time Ratio 1.3 INR International Normalized Ratio 1.36 Activated Partial Thromboplast Time 33.7Sec Sodium Level 130mmol/L Potassium Level 4.0mmol/L Chloride Level 104mmol/L Carbon Dioxide Level 21mmol/L Anion Gap 9 Blood Urea Nitrogen 15mg/dl Creatinine 0.95mg/dl Glucose Level 88mg/dl Calcium Level 8.7mg/dl Bedside Urine pH (LAB) 6.0 Bedside Urine Protein (LAB) Trace Bedside Urine Glucose (UA) Negative Bedside Urine Ketones (LAB) Trace Bedside Urine Blood 1+ Bedside Urine Nitrite (LAB) Negative Bedside Urine Leukocyte Esterase (L 3+ Current Medications Medications (Trade) Dose Ordered Sig/Lisa Route PRN Reason Start Time Stop Time Status Last Admin Dose Admin Morphine Sulfate (morphine) 2 mg ONCE ONCE IV 02/17/17 19:30 02/17/17 19:31 DC 02/17/17 19:34 Ondansetron HCl (Zofran Inj) 4 mg ONCE STAT IV 02/17/17 19:11 02/17/17 19:12 DC 02/17/17 19:34 Procedures/MDM MEDICAL MAKING DECISION: The patient is a 56-year-old male, presenting with recurrent ascites, acute cystitis. He was treated with morphine 2 IV for pain, Zofran 4 IV for nausea with good response. The differential diagnoses considered include but are not limited to cholelithiasis, cholecystitis, cystitis, pancreatitis, hepatitis, gastritis, peptic ulcer disease, gastric ulcer, appendicitis, diverticulitis, cholangitis, choledocholithiasis, partial small bowel obstruction. Departure Diagnosis: Primary Impression: Ascites Additional Impressions: UTI (urinary tract infection) Anemia Condition: Good Comments He was treated with Seneca and Cipro He was advised to return tomorrow for abdominal paracentesis GAVIN CASTILLO MD February 17, 2017 19:00
[2017-02-17] MEDS ORDERED: ONDANSETRON 4 MG INJ IV STA (19:11)
[2017-02-17] MEDS ORDERED: HYDR-906 PO (19:12)
[2017-02-17] MEDS ORDERED: ONDA4TAB14 PO (19:13)
[2017-02-17 19:14] LABS: URINE BLOOD (Dip) POC 1+ (NEGATIVE)
[2017-02-17] MEDS ORDERED: morphine 2 MG INJ IV ONE (19:30)
[2017-02-17 19:31] LABS: ADD SCAN DIFF NO
[2017-02-17 19:36] LABS: BASOPHIL # 0.1 10^3/ul (0.0-0.1); BASOPHILS % 1.2 % (0.0-2.0); EOSINOPHILS # 0.1 10^3/ul (0.0-0.5); EOSINOPHILS % 2.3 % (0.0-7.0); HEMATOCRIT 34.4 % (42.0-52.0); HEMOGLOBIN 11.6 g/dl (14.0-18.0); LYMPHOCYTES # 0.7 10^3/ul (0.8-2.9); LYMPHOCYTES % 12.5 % (15.0-51.0); MEAN CORPUSCULAR HEMOGLOBIN 30.6 pg (29.0-33.0); MEAN CORPUSCULAR HGB CONC 33.7 g/dl (32.0-37.0); MEAN CORPUSCULAR VOLUME 90.8 fl (82.0-101.0); MONOCYTE # 0.7 10^3/ul (0.3-0.9); MONOCYTES % 12.9 % (0.0-11.0); NEUTROPHILS % 70.6 % (39.0-77.0); PLATELET COUNT 179 10^3/UL (140-415); RED BLOOD COUNT 3.79 10^6/ul (4.70-6.10); RED CELL DISTRIBUTION WIDTH 16.6 % (11.5-14.5); WHITE BLOOD COUNT 5.7 10^3/ul (4.8-10.8)
[2017-02-17 19:53] LABS: INR 1.36; PROTIME 16.8 Sec (12.2-14.2); PT RATIO 1.3
[2017-02-17 19:54] LABS: PARTIAL THROMBOPLASTIN TIME 33.7 Sec (25.0-35.0)
[2017-02-17 19:57] LABS: CALCIUM 8.7 mg/dl (8.4-10.2); CREATININE 0.95 mg/dl (0.61-1.24)
[2017-02-17] MEDS ORDERED: CIPR500T4 PO (20:48)
[2017-02-17 20:53] VITALS: BP 120/88; PULSE 89; RESP 20; TEMP 98.2
[2017-02-18] MEDS ORDERED: LIDOCAINE 1% (MPF) 5 ML VIAL ONE (13:54)
== END 2017-02-17 20:55 | disposition home or self-care (01) ==
LOC: E/R 17:21
DX: R18.8 Other ascites (principal); N39.0 Urinary tract infection, site not specified; D64.9 Anemia, unspecified; E11.9 Type 2 diabetes mellitus without complications; R10.9 Unspecified abdominal pain; Z79.4 Long term (current) use of insulin
CPT/HCPCS: 36415; 80048; 81003; 85025; 85610; 85730; 96374; 96375; J2270; J2405; Z7502

== ENCOUNTER 2017-02-18 10:52 | Emergency (ER) | payer OTHER ==
[~2017-02-18] VITALS: Wt 78.1 kg
[~2017-02-18 10:52] MED LIST changes: +CIPR500T4 PO; +HYDR-906 PO; +ONDA4TAB14 PO
--- NOTE | 2017-02-18 14:00 | RADRPT ---
PROCEDURE: Ultrasound guided paracentesis. CLINICAL INDICATION: Ascites and shortness of breath. COMPARISON: 02/14/2017. TECHNIQUE: The risks, benefits, and alternatives were explained to the patient and/or the patient's family, inc luding but not limited to bleeding, infection, pain, visceral or vascular damage, shock, and . The patient and/or the patient's family understood the risks and the alternatives and wished to pro ceed with the procedure. Informed written consent was obtained. A procedural time out was performed . The patient's name, date of , and procedure to be performed were verified. Utilizing ultrasound guidance, optimal location for entry to the peritoneal cavity was ascertained. The overlying skin was prepped and draped in the usual sterile fashion. Approximately 10 ml of 1% Xylocaine was injected locally for pain control. Using ultrasound guidance, an 8 [place] catheter wa s introduced into the peritoneal cavity in the right lower quadrant without difficulty. FINDINGS: Initial images demonstrate ascites. Approximately 7.25 liters of serous fluid was aspirated and dis carded. The patient tolerated the procedure well without complication. IMPRESSION: 1. Successful ultrasound-guided paracentesis. RPTAT: QQ .Thierno Ventura MD, Date Time Electronically viewed and signed by .Thierno Ventura MD, on 02/18/2017 13:59 .R/
--- NOTE | 2017-02-18 14:03 | ERD ---
ER Documentation Chief Complaint Date/Time DATE: 02/18/17 TIME: 14:02 Chief Complaint HERE FOR ABD PAIN AND DISTENTION . NEEDS PARACENTHESIS TODAY. HPI Patient is a 56-year-old male with cirrhosis and ascites who presents with abdominal distention and pain. He had vomiting last night. He denies fevers. He is requesting a paracentesis. Upon review of old medical records the patient has frequent visits to the emergency department for similar complaints. He is well-known to myself into our staff. ROS All systems reviewed and are negative except as per history of present illness. Medications Home Meds Active Scripts Ciprofloxacin Hcl* (Ciprofloxacin Hcl*) 500 Mg Tablet, 500 MG PO BID for 10 Days , TAB Prov:GAVIN CASTILLO MD 02/17/17 Ondansetron (Ondansetron Odt) 4 Mg Tab.rapdis, 4 MG PO Q6H Y for NAUSEA AND/OR VOMITING, #10 TAB Prov:GAVIN CASTILLO MD 02/17/17 Hydrocodone/Acetaminophen ([place] 5-325 Tablet) 1 Each Tablet, 1 TAB PO Q6H Y for PAIN, #7 TAB Prov:GAVIN CASTILLO MD 02/17/17 Insulin Aspart* (Novolog Insulin Pen*) 100 Unit/Ml Soln, 10 UNIT SC WITH MEALS BEDTIME for 28 Days Prov:JERZY BENSON MD 08/27/16 Reported Medications Insulin Glargine* (Lantus*) 100 Unit/Ml Soln, 35 UNIT SC QHS, #1 VIAL 08/23/16 Losartan Potassium* (Cozaar*) 25 Mg Tablet, 25 MG PO DAILY, #30 TAB 08/23/16 Pantoprazole* (Protonix*) 40 Mg Tablet.dr, 40 MG PO DAILY, TAB 08/23/16 Allergies Allergies: Coded Allergies: No Known Drug Allergy (Verified Allergy, Unknown, 02/14/17) PMhx/Soc History of Surgery: No Anesthesia Reaction: No Hx Neurological Disorder: No Hx Respiratory Disorders: No Hx Cardiac Disorders: No Hx Psychiatric Problems: No Hx Miscellaneous Medical Probl: Yes (liver cirrhosis) Hx Alcohol Use: Yes Hx Substance Use: No Hx Tobacco Use: No FmHx Family History: No diabetes Physical Exam Vitals Vital Signs Date Time Temp Pulse Resp B/P Pulse Ox O2 Delivery O2 Flow Rate FiO2 02/18/17 10:57 98.5 105 21 101/76 98 Physical Exam Const: No acute distress Head: Atraumatic Eyes: Normal Conjunctiva ENT: Normal External Ears, Nose and Mouth. Neck: Full range of motion..~ No meningismus. Resp: Clear to auscultation bilaterally Cardio: Regular rate and rhythm, no murmurs Abd: Distended abdomen with positive fluid wave Skin: No petechiae or rashes Back: No midline or flank tenderness Ext: No cyanosis, or edema Neur: Awake and alert Psych: Normal Mood and Affect Procedures/MDM Patient is a 56-year-old male presents for paracentesis. Laboratory studies were performed yesterday but there was no available radiologist to perform the paracentesis. Therefore he came back today for paracentesis. Paracentesis was performed that he feels better. I doubt spontaneous bacterial peritonitis. I believe outpatient management is appropriate. He can return for any worsening symptoms. Departure Diagnosis: Primary Impression: Abdominal pain Abdominal location: generalized Qualified Code: R10.84 - Generalized abdominal pain Additional Impression: Ascites Ascites type: other type Qualified Code: R18.8 - Other ascites Condition: Fair Patient Instructions: Ascites Referrals: JESSICA LAY (PCP) Additional Instructions: Call your primary care doctor TOMORROW for an appointment during the next 1-2 days.See the doctor sooner or return here if your condition worsens before your appointment time. ALESIA CLAROS MD February 18, 2017 14:03
[2017-02-18] MEDS ORDERED: LIDOCAINE 1% (MPF) 5 ML VIAL ONE (14:06)
[2017-02-18 14:38] VITALS: BP 126/81; PULSE 92; RESP 18
== END 2017-02-18 14:42 | disposition home or self-care (01) ==
LOC: E/R 10:52
DX: R10.84 Generalized abdominal pain (principal); R18.8 Other ascites; E11.9 Type 2 diabetes mellitus without complications; Z79.4 Long term (current) use of insulin
CPT/HCPCS: Z7502; Z7610

== ENCOUNTER 2017-02-27 10:46 | Emergency (ER) | payer OTHER ==
[~2017-02-27] VITALS: Ht 160 cm; Wt 70.5 kg
[2017-02-27 10:58] VITALS: Ht 160 cm; Wt 70.5 kg
--- NOTE | 2017-02-27 11:34 | ERD ---
ER Documentation Chief Complaint Date/Time DATE: 02/27/17 TIME: 11:33 Chief Complaint abdominal distention; last paracentesis was 02/22/2017 HPI Very pleasant 56-year-old gentleman history of alcoholic cirrhosis on the transplant list at [facility]. The patient presents with abdominal distention. He describes his last paracentesis was on Friday at [facility]. He denies any hematemesis, no melena, no abdominal pain, no fevers. Patient states that he is in his usual state of health. ROS All systems reviewed and are negative except as per history of present illness. Medications Home Meds Active Scripts Ciprofloxacin Hcl* (Ciprofloxacin Hcl*) 500 Mg Tablet, 500 MG PO BID for 10 Days , TAB Prov:GAVIN CASTILLO MD 02/17/17 Ondansetron (Ondansetron Odt) 4 Mg Tab.rapdis, 4 MG PO Q6H Y for NAUSEA AND/OR VOMITING, #10 TAB Prov:GAVIN CASTILLO MD 02/17/17 Hydrocodone/Acetaminophen ([place] 5-325 Tablet) 1 Each Tablet, 1 TAB PO Q6H Y for PAIN, #7 TAB Prov:GAVIN CASTILLO MD 02/17/17 Insulin Aspart* (Novolog Insulin Pen*) 100 Unit/Ml Soln, 10 UNIT SC WITH MEALS BEDTIME for 28 Days Prov:JERZY BENSON MD 08/27/16 Reported Medications Insulin Glargine* (Lantus*) 100 Unit/Ml Soln, 35 UNIT SC QHS, #1 VIAL 08/23/16 Losartan Potassium* (Cozaar*) 25 Mg Tablet, 25 MG PO DAILY, #30 TAB 08/23/16 Pantoprazole* (Protonix*) 40 Mg Tablet.dr, 40 MG PO DAILY, TAB 08/23/16 Allergies Allergies: Coded Allergies: No Known Drug Allergy (Verified Allergy, Unknown, 02/27/17) PMhx/Soc Medical and Surgical Hx: pt denies Surgical Hx History of Surgery: No Anesthesia Reaction: No Hx Neurological Disorder: No Hx Respiratory Disorders: No Hx Cardiac Disorders: No Hx Psychiatric Problems: No Hx Miscellaneous Medical Probl: Yes (liver cirrhosis) Hx Alcohol Use: Yes Hx Substance Use: No Hx Tobacco Use: No Smoking Status: Never smoker FmHx Family History: No diabetes Physical Exam Vitals Vital Signs Date Time Temp Pulse Resp B/P Pulse Ox O2 Delivery O2 Flow Rate FiO2 02/27/17 10:58 97.3 96 20 94/57 98 Physical Exam General: Well developed, well nourished, no acute distress Head: Normocephalic, atraumatic. Eyes: Pupils equally reactive, EOM intact ENT: Moist mucous membranes Neck: Supple, no lymphadenopathy Respiratory: Lungs clear bilaterally, no distress Cardiovascular: RRR, no murmurs, rubs, or gallops Abdominal: Soft, protuberant abdomen with fluid wave, nontender, no peritonitis : Deferred MSK: No edema, no unilateral swelling, 5/5 strength Neurologic: Alert and oriented, moving all extremities, normal speech, no focal weakness, no cerebellar signs Skin: No rash Psych: Normal mood Result Diagram: 02/27/17 1128 02/27/17 1128 Results 24 hrs Laboratory Tests Test 02/27/17 11:28 White Blood Count 5.910^3/ul Red Blood Count 3.0510^6/ul Hemoglobin 9.2g/dl Hematocrit 28.1% Mean Corpuscular Volume 92.1fl Mean Corpuscular Hemoglobin 30.2pg Mean Corpuscular Hemoglobin Concent 32.7g/dl Red Cell Distribution Width 15.6% Platelet Count 08896^3/UL Mean Platelet Volume 12.4fl Neutrophils % 75.2% Lymphocytes % 7.1% Monocytes % 15.4% Eosinophils % 1.0% Basophils % 0.8% Nucleated Red Blood Cells % 0.0/100WBC Neutrophils # 4.410^3/ul Lymphocytes # 0.410^3/ul Monocytes # 0.910^3/ul Eosinophils # 0.110^3/ul Basophils # 0.110^3/ul Nucleated Red Blood Cells # 0.010^3/ul Prothrombin Time 16.3Sec Prothrombin Time Ratio 1.3 INR International Normalized Ratio 1.30 Activated Partial Thromboplast Time 31.2Sec Sodium Level 130mmol/L Potassium Level 4.8mmol/L Chloride Level 99mmol/L Carbon Dioxide Level 21mmol/L Anion Gap 15 Blood Urea Nitrogen 18mg/dl Creatinine 0.97mg/dl Glucose Level 257mg/dl Calcium Level 8.3mg/dl Total Bilirubin 0.3mg/dl Direct Bilirubin 0.00mg/dl Indirect Bilirubin 0.3mg/dl Aspartate Amino Transf (AST/SGOT) 93IU/L Alanine Aminotransferase (ALT/SGPT) 54IU/L Alkaline Phosphatase 202IU/L Total Protein 6.0g/dl Albumin 2.6g/dl Globulin 3.40g/dl Albumin/Globulin Ratio 0.76 Current Medications Medications (Trade) Dose Ordered Sig/Lisa Route PRN Reason Start Time Stop Time Status Last Admin Dose Admin Lidocaine (Xylocaine 1% (Mpf)) 5 ml STK-MED ONCE .ROUTE 02/27/17 14:09 02/27/17 14:10 DC Procedures/MDM EKG, MONITORS, & DIAGNOSTIC IMAGING: Large volume therapeutic paracentesis performed by interventional radiology. LAB INTERPRETATION: No significant coagulopathy noted. MEDICAL DECISION MAKING: The patient presents with abdominal ascites likely secondary to cirrhosis. Patient does not exhibit any signs or symptoms concerning for complications of cirrhosis such as GI bleed, hepatic encephalopathy or spontaneous bacterial peritonitis. There is no indication currently for diagnostic paracentesis. The patient will benefit from large volume therapeutic paracentesis by interventional radiology. If the patient remains stable without evidence of hemodynamic compromise secondary to fluid shifts the patient can be safely discharged home with close primary care and hepatology follow-up. ER COURSE: The patient had successful large volume therapeutic paracentesis. The patient remained hemodynamically stable and otherwise well-appearing. The patient is safe for discharge home. I kept the patient and/or family informed of laboratory and diagnostic imaging results throughout the emergency room course. DISPOSITION PLAN: We discussed follow up with the patient's primary care doctor within 24 to 48 hours as needed. We also discussed return to the emergency room for worsening symptoms or worsening condition. Discharge Medications: None Departure Diagnosis: Primary Impression: Ascites Ascites type: due to alcoholic cirrhosis Qualified Code: K70.31 - Ascites due to alcoholic cirrhosis Additional Impression: Anemia Anemia type: unspecified type Qualified Code: D64.9 - Anemia, unspecified type Condition: Stable CLINTON TAMAYO MD February 27, 2017 11:34
[2017-02-27 11:50] LABS: ADD SCAN DIFF NO
[2017-02-27 11:53] LABS: ABNORMAL IP MESSAGE 1; BASOPHIL # 0.1 10^3/ul (0.0-0.1); BASOPHILS % 0.8 % (0.0-2.0); EOSINOPHILS # 0.1 10^3/ul (0.0-0.5); HEMATOCRIT 28.1 % (42.0-52.0); HEMOGLOBIN 9.2 g/dl (14.0-18.0); LYMPHOCYTES # 0.4 10^3/ul (0.8-2.9); LYMPHOCYTES % 7.1 % (15.0-51.0); MEAN CORPUSCULAR HEMOGLOBIN 30.2 pg (29.0-33.0); MEAN CORPUSCULAR HGB CONC 32.7 g/dl (32.0-37.0); MEAN CORPUSCULAR VOLUME 92.1 fl (82.0-101.0); MEAN PLATELET VOLUME 12.4 fl (7.4-10.4); MONOCYTE # 0.9 10^3/ul (0.3-0.9); MONOCYTES % 15.4 % (0.0-11.0); NEUTROPHIL # 4.4 10^3/ul (1.6-7.5); NEUTROPHILS % 75.2 % (39.0-77.0); PLATELET COUNT 134 10^3/UL (140-415); RED BLOOD COUNT 3.05 10^6/ul (4.70-6.10); RED CELL DISTRIBUTION WIDTH 15.6 % (11.5-14.5); WHITE BLOOD COUNT 5.9 10^3/ul (4.8-10.8)
[2017-02-27 12:12] LABS: ALBUMIN 2.6 g/dl (3.3-4.9); POTASSIUM 4.8 mmol/L (3.5-5.1)
[2017-02-27 12:13] LABS: INR 1.3; PROTIME 16.3 Sec (12.2-14.2); PT RATIO 1.3
[2017-02-27 12:14] LABS: CREATININE 0.97 mg/dl (0.61-1.24); PARTIAL THROMBOPLASTIN TIME 31.2 Sec (25.0-35.0)
[2017-02-27 12:15] LABS: ALBUMIN/GLOBULIN RATIO 0.76; BILIRUBIN,INDIRECT 0.3 mg/dl (0-1.1); BILIRUBIN,TOTAL 0.3 mg/dl (0.2-1.3)
[2017-02-27 12:16] LABS: CALCIUM 8.3 mg/dl (8.4-10.2)
[2017-02-27] MEDS ORDERED: LIDOCAINE 1% (MPF) 5 ML VIAL ONE (14:09)
[2017-02-27 14:18] VITALS: BP 115/54; PULSE 72; RESP 20; TEMP 97.8
[2017-02-27] MEDS ORDERED: ONDANSETRON (ODT) 4 MG TAB ODT STA (14:29)
--- NOTE | 2017-02-27 14:44 | RADRPT ---
PROCEDURE: Ultrasound guided paracentesis. CLINICAL INDICATION: Ascites and shortness of breath. COMPARISON: 02/18/2017. TECHNIQUE: The risks, benefits, and alternatives were explained to the patient and/or the patient's family, inc luding but not limited to bleeding, infection, pain, visceral or vascular damage, shock, and . The patient and/or the patient's family understood the risks and the alternatives and wished to pro ceed with the procedure. Informed written consent was obtained. A procedural time out was performed . The patient's name, date of , and procedure to be performed were verified. Utilizing ultrasound guidance, optimal location for entry to the peritoneal cavity was ascertained. The overlying skin was prepped and draped in the usual sterile fashion. Approximately 10 ml of 1% Xylocaine was injected locally for pain control. Using ultrasound guidance, an 8 [place] catheter wa s introduced into the peritoneal cavity in the right lower quadrant without difficulty. FINDINGS: Initial images demonstrate ascites. Approximately 5.3 liters of serous fluid was aspirated and disc arded. The patient tolerated the procedure well without complication. IMPRESSION: 1. Successful ultrasound-guided paracentesis. RPTAT: QQ .Thierno Ventura MD, Date Time Electronically viewed and signed by .Thierno Ventura MD, on 02/27/2017 14:44 .R/
== END 2017-02-27 14:47 | disposition home or self-care (01) ==
LOC: E/R 10:46
DX: K70.31 Alcoholic cirrhosis of liver with ascites (principal); D64.9 Anemia, unspecified; E11.9 Type 2 diabetes mellitus without complications; Z79.4 Long term (current) use of insulin
CPT/HCPCS: 80053; 85025; 85610; 85730; Z7610; 36415

== ENCOUNTER 2017-03-03 10:06 | Emergency (ER) | payer OTHER ==
[~2017-03-03] VITALS: Wt 83.0 kg
[2017-03-03] MEDS ORDERED: LIDOCAINE 1% (MPF) 5 ML VIAL ONE (13:32)
--- NOTE | 2017-03-03 13:57 | RADRPT ---
PROCEDURE: Ultrasound guided paracentesis. CLINICAL INDICATION: Ascites and shortness of breath. COMPARISON: No prior studies are available for comparison. TECHNIQUE: The risks, benefits, and alternatives were explained to the patient and/or the patient's family, inc luding but not limited to bleeding, infection, pain, visceral or vascular damage, shock, and . The patient and/or the patient's family understood the risks and the alternatives and wished to pro ceed with the procedure. Informed written consent was obtained. A procedural time out was performed . The patient's name, date of , and procedure to be performed were verified. Utilizing ultrasound guidance, optimal location for entry to the peritoneal cavity was ascertained. The overlying skin was prepped and draped in the usual sterile fashion. Approximately 10 ml of 1% Xylocaine was injected locally for pain control. Using ultrasound guidance, an 8 [place] catheter wa s introduced into the peritoneal cavity in the right lower quadrant without difficulty. FINDINGS: Initial images demonstrate ascites. Approximately 7.85 liters of serous fluid was aspirated and dis carded. The patient tolerated the procedure well without complication. IMPRESSION: 1. Successful ultrasound-guided paracentesis. RPTAT: QQ .Thierno Ventura MD, Date Time Electronically viewed and signed by .Thierno Ventura MD, on 03/03/2017 13:57 .R/
--- NOTE | 2017-03-03 14:07 | ERD ---
ER Documentation Chief Complaint Date/Time DATE: 03/03/17 TIME: 14:06 Chief Complaint PARACENTISIS HPI This is a 36-year-old male well-known to the emergency room or presents to the emergency room for evaluation of ascites. This patient has had multiple ultrasound paracentesis drainage in the emergency room. He presents today for the same. He denies any fevers or abdominal pain but states she has abdominal distention. ROS All systems reviewed and are negative except as per history of present illness. Medications Home Meds Active Scripts Ciprofloxacin Hcl* (Ciprofloxacin Hcl*) 500 Mg Tablet, 500 MG PO BID for 10 Days , TAB Prov:GAVIN CASTILLO MD 02/17/17 Ondansetron (Ondansetron Odt) 4 Mg Tab.rapdis, 4 MG PO Q6H Y for NAUSEA AND/OR VOMITING, #10 TAB Prov:GAVIN CASTILLO MD 02/17/17 Hydrocodone/Acetaminophen ([place] 5-325 Tablet) 1 Each Tablet, 1 TAB PO Q6H Y for PAIN, #7 TAB Prov:GAVIN CASTILLO MD 02/17/17 Insulin Aspart* (Novolog Insulin Pen*) 100 Unit/Ml Soln, 10 UNIT SC WITH MEALS BEDTIME for 28 Days Prov:JERZY BENSON MD 08/27/16 Reported Medications Insulin Glargine* (Lantus*) 100 Unit/Ml Soln, 25 UNIT SC QHS, #1 VIAL 08/23/16 Losartan Potassium* (Cozaar*) 25 Mg Tablet, 25 MG PO DAILY, #30 TAB 08/23/16 Pantoprazole* (Protonix*) 40 Mg Tablet.dr, 40 MG PO DAILY, TAB 08/23/16 Allergies Allergies: Coded Allergies: No Known Drug Allergy (Verified Allergy, Unknown, 02/27/17) PMhx/Soc History of Surgery: No Anesthesia Reaction: No Hx Neurological Disorder: No Hx Respiratory Disorders: No Hx Cardiac Disorders: No Hx Psychiatric Problems: No Hx Miscellaneous Medical Probl: Yes (liver cirrhosis) Hx Alcohol Use: Yes (NO LONGER DRINKS) Hx Substance Use: No Hx Tobacco Use: No Smoking Status: Never smoker Physical Exam Vitals Vital Signs Date Time Temp Pulse Resp B/P Pulse Ox O2 Delivery O2 Flow Rate FiO2 03/03/17 10:08 98.0 86 18 97/59 97 Physical Exam Const: No acute distress Head: Atraumatic Eyes: Normal Conjunctiva ENT: Normal External Ears, Nose and Mouth. Neck: Full range of motion..~ No meningismus. Resp: Clear to auscultation bilaterally Cardio: Regular rate and rhythm, no murmurs Abd: Soft, non tender, mild distention. Normal bowel sounds Skin: No petechiae or rashes Back: No midline or flank tenderness Ext: No cyanosis, or edema Neur: Awake and alert Psych: Normal Mood and Affect Results 24 hrs Current Medications Medications (Trade) Dose Ordered Sig/Lisa Route PRN Reason Start Time Stop Time Status Last Admin Dose Admin Lidocaine (Xylocaine 1% (Mpf)) 5 ml STK-MED ONCE .ROUTE 03/03/17 13:32 03/03/17 13:33 DC 03/03/17 13:54 Procedures/MDM This 36-year-old male presents to the emergency room for evaluation of ascites. This patient is well-known to the emergency room. This patient did have an ultrasound drainage with greater than 7 L of fluid removed. This patient's blood pressure is stable at this time and he will be discharged home. Departure Diagnosis: Primary Impression: Ascites Condition: Stable TOMMY LEWIS DO March 03, 2017 14:07
[2017-03-03 14:16] VITALS: BP 106/69; PULSE 64; RESP 18; TEMP 97.5
== END 2017-03-03 14:15 | disposition home or self-care (01) ==
LOC: E/R 10:06
DX: R18.8 Other ascites (principal); E11.9 Type 2 diabetes mellitus without complications; Z79.4 Long term (current) use of insulin
CPT/HCPCS: Z7502; Z7610

== ENCOUNTER 2017-03-06 12:12 | Emergency (ER) | payer OTHER ==
[~2017-03-06] VITALS: Wt 71.0 kg
[2017-03-06] MEDS ORDERED: HYDROCODONE/APAP (10/325) TAB PO ONE (13:00)
[2017-03-06] MEDS ORDERED: ONDANSETRON (ODT) 4 MG TAB ODT STA (13:00)
[2017-03-06] MEDS ORDERED: LIDOCAINE 1% (MPF) 5 ML VIAL ONE (14:33)
[2017-03-06 15:28] VITALS: BP 110/70; PULSE 76; RESP 16; TEMP 97.2
--- NOTE | 2017-03-06 15:42 | RADRPT ---
PROCEDURE: Ultrasound guided paracentesis. CLINICAL INDICATION: Ascites and shortness of breath. COMPARISON: 03/03/2017. TECHNIQUE: The risks, benefits, and alternatives were explained to the patient and/or the patient's family, inc luding but not limited to bleeding, infection, pain, visceral or vascular damage, shock, and . The patient and/or the patient's family understood the risks and the alternatives and wished to pro ceed with the procedure. Informed written consent was obtained. A procedural time out was performed . The patient's name, date of , and procedure to be performed were verified. Utilizing ultrasound guidance, optimal location for entry to the peritoneal cavity was ascertained. The overlying skin was prepped and draped in the usual sterile fashion. Approximately 10 ml of 1% Xylocaine was injected locally for pain control. Using ultrasound guidance, an 8 [place] catheter wa s introduced into the peritoneal cavity in the right lower quadrant without difficulty. FINDINGS: Initial images demonstrate ascites. Approximately 7.0 liters of serous fluid was aspirated and disc arded. The patient tolerated the procedure well without complication. IMPRESSION: 1. Successful ultrasound-guided paracentesis. RPTAT: QQ .Thierno Ventura MD, Date Time Electronically viewed and signed by .Thierno Ventura MD, on 03/06/2017 15:41 .R/
--- NOTE | 2017-03-06 16:39 | ERD ---
ER Documentation Chief Complaint Date/Time DATE: 03/06/17 TIME: 16:38 Chief Complaint PT HERE FOR PARACENTESIS HPI Patient is a 56-year-old male with ascites who presents with abdominal pain and distention. His last paracentesis was on March 03. He last had laboratory studies done on February 27. He is well-known to our emergency department upon review of old medical records and comes approximately every 3 days for paracentesis. He has no fevers. ROS All systems reviewed and are negative except as per history of present illness. Medications Home Meds Active Scripts Ciprofloxacin Hcl* (Ciprofloxacin Hcl*) 500 Mg Tablet, 500 MG PO BID for 10 Days , TAB Prov:GAVIN CASTILLO MD 02/17/17 Insulin Aspart* (Novolog Insulin Pen*) 100 Unit/Ml Soln, 10 UNIT SC WITH MEALS BEDTIME for 28 Days Prov:JERZY BENSON MD 08/27/16 Reported Medications Insulin Glargine* (Lantus*) 100 Unit/Ml Soln, 25 UNIT SC QHS, #1 VIAL 08/23/16 Losartan Potassium* (Cozaar*) 25 Mg Tablet, 25 MG PO DAILY, #30 TAB 08/23/16 Pantoprazole* (Protonix*) 40 Mg Tablet.dr, 40 MG PO DAILY, TAB 08/23/16 Discontinued Scripts Ondansetron (Ondansetron Odt) 4 Mg Tab.rapdis, 4 MG PO Q6H Y for NAUSEA AND/OR VOMITING, #10 TAB Prov:GAVIN CASTILLO MD 02/17/17 Hydrocodone/Acetaminophen ([place] 5-325 Tablet) 1 Each Tablet, 1 TAB PO Q6H Y for PAIN, #7 TAB Prov:GAVIN CASTILLO MD 02/17/17 Allergies Allergies: Coded Allergies: No Known Drug Allergy (Verified Allergy, Unknown, 03/06/17) PMhx/Soc History of Surgery: No Anesthesia Reaction: No Hx Neurological Disorder: No Hx Respiratory Disorders: No Hx Cardiac Disorders: No Hx Psychiatric Problems: No Hx Miscellaneous Medical Probl: Yes (liver cirrhosis) Hx Alcohol Use: Yes (NO LONGER DRINKS) Hx Substance Use: No Hx Tobacco Use: No Smoking Status: Former smoker FmHx Family History: No diabetes Physical Exam Vitals Vital Signs Date Time Temp Pulse Resp B/P Pulse Ox O2 Delivery O2 Flow Rate FiO2 03/06/17 15:28 97.2 76 16 110/70 97 Room Air 03/06/17 12:21 97.4 89 17 108/67 99 Physical Exam Const: No acute distress Head: Atraumatic Eyes: Normal Conjunctiva ENT: Normal External Ears, Nose and Mouth. Neck: Full range of motion..~ No meningismus. Resp: Clear to auscultation bilaterally Cardio: Regular rate and rhythm, no murmurs Abd: Distended abdomen with positive fluid wave Skin: No petechiae or rashes Back: No midline or flank tenderness Ext: No cyanosis, or edema Neur: Awake and alert Psych: Normal Mood and Affect Results 24 hrs Current Medications Medications (Trade) Dose Ordered Sig/Lisa Route PRN Reason Start Time Stop Time Status Last Admin Dose Admin Acetaminophen/ Hydrocodone Bitart ([place] (10/325)) 1 tab ONCE ONCE PO 03/06/17 13:00 03/06/17 13:01 DC 03/06/17 13:09 Ondansetron HCl (Zofran Odt) 4 mg ONCE STAT ODT 03/06/17 13:00 03/06/17 13:01 DC 03/06/17 13:08 Lidocaine (Xylocaine 1% (Mpf)) 5 ml STK-MED ONCE .ROUTE 03/06/17 14:33 03/06/17 14:34 DC Procedures/MDM Ultrasound-guided paracentesis performed by radiology. Patient is a 56-year-old male with ascites who presents with acute abdominal pain and ascites. The patient had a ultrasound-guided paracentesis done and feels better. He was given [place] for pain. The patient will be discharged home and can follow-up with his primary doctor within 1-2 days. He can return for any worsening symptoms. I doubt spontaneous bacterial peritonitis at this time. Departure Diagnosis: Primary Impression: Ascites Ascites type: other type Qualified Code: R18.8 - Other ascites Additional Impression: Abdominal pain Abdominal location: generalized Qualified Code: R10.84 - Generalized abdominal pain Condition: Fair Patient Instructions: Ascites Additional Instructions: Call your primary care doctor TOMORROW for an appointment during the next 1-2 days.See the doctor sooner or return here if your condition worsens before your appointment time. ALESIA CLAROS MD March 06, 2017 16:39
== END 2017-03-06 15:54 | disposition home or self-care (01) ==
LOC: E/R 12:12
DX: R18.8 Other ascites (principal); R10.84 Generalized abdominal pain; E11.9 Type 2 diabetes mellitus without complications; Z79.4 Long term (current) use of insulin; Z87.891 Personal history of nicotine dependence
CPT/HCPCS: Z7502; Z7610

== ENCOUNTER 2017-03-10 11:38 | Emergency (ER) | payer OTHER ==
[~2017-03-10] VITALS: Ht 170.2 cm; Wt 71.0 kg
[~2017-03-10 11:38] MED LIST changes: -HYDR-906 PO; -ONDA4TAB14 PO
[2017-03-10 11:41] VITALS: Ht 170.2 cm; Wt 71.0 kg
[2017-03-10] MEDS ORDERED: ONDA4TAB11 PO (12:08)
[2017-03-10] MEDS ORDERED: ONDANSETRON 4 MG INJ IM STA (12:12)
--- NOTE | 2017-03-10 14:09 | ERD ---
ER Documentation Chief Complaint Date/Time DATE: 03/10/17 TIME: 14:04 Chief Complaint Patient here for paracentesis HPI This 56-year-old male presents for a paracentesis. He was last here 5 days ago for a paracentesis. Routinely has come to the emergency room for his paracenteses. Very familiar with this patient. He is having feeling of tension in his abdomen again that he believes this time for paracentesis. He has no fevers chills or weakness. He states that he does occasionally have nausea but no and get some medication for it. He has specialists at [facility] who are discussing surgery possibly next year. ROS All systems reviewed and are negative except as per history of present illness. Medications Home Meds Active Scripts Ondansetron (Zofran Odt) 4 Mg Tab.rapdis, 4 MG PO Q6 for NAUSEA, #14 Prov:GALINDO BAILEY DO 03/10/17 Insulin Aspart* (Novolog Insulin Pen*) 100 Unit/Ml Soln, 10 UNIT SC WITH MEALS BEDTIME for 28 Days Prov:JERZY BENSON MD 08/27/16 Reported Medications Insulin Glargine* (Lantus*) 100 Unit/Ml Soln, 25 UNIT SC QHS, #1 VIAL 08/23/16 Losartan Potassium* (Cozaar*) 25 Mg Tablet, 25 MG PO DAILY, #30 TAB 08/23/16 Pantoprazole* (Protonix*) 40 Mg Tablet.dr, 40 MG PO DAILY, TAB 08/23/16 Discontinued Scripts Ciprofloxacin Hcl* (Ciprofloxacin Hcl*) 500 Mg Tablet, 500 MG PO BID for 10 Days , TAB Prov:GAVIN CASTILLO MD 02/17/17 Ondansetron (Ondansetron Odt) 4 Mg Tab.rapdis, 4 MG PO Q6H Y for NAUSEA AND/OR VOMITING, #10 TAB Prov:GAVIN CASTILLO MD 02/17/17 Hydrocodone/Acetaminophen ([place] 5-325 Tablet) 1 Each Tablet, 1 TAB PO Q6H Y for PAIN, #7 TAB Prov:GAVIN CASTILLO MD 02/17/17 Allergies Allergies: Coded Allergies: No Known Drug Allergy (Verified Allergy, Unknown, 03/10/17) PMhx/Soc History of Surgery: No Anesthesia Reaction: No Hx Neurological Disorder: No Hx Respiratory Disorders: No Hx Cardiac Disorders: No Hx Psychiatric Problems: No Hx Miscellaneous Medical Probl: Yes (liver cirrhosis) Hx Alcohol Use: Yes (NO LONGER DRINKS) Hx Substance Use: No Hx Tobacco Use: No Smoking Status: Unknown if ever smoked Physical Exam Vitals Vital Signs Date Time Temp Pulse Resp B/P Pulse Ox O2 Delivery O2 Flow Rate FiO2 03/10/17 11:41 97.6 95 20 123/79 99 Physical Exam Const: [] No distress, conversive, chewing gum Head: Atraumatic Eyes: Normal Conjunctiva ENT: Normal External Ears, Nose and Mouth. Neck: Full range of motion..~ No meningismus. Resp: Clear to auscultation bilaterally Cardio: Regular rate and rhythm, no murmurs Abd: Soft, distended, firm abdomen with no specific tenderness,. Skin: No petechiae or rashes Back: No midline or flank tenderness Ext: No cyanosis, or edema Neur: Awake and alert and oriented 3, no focal deficits Psych: Normal Mood and Affect Results 24 hrs Current Medications Medications (Trade) Dose Ordered Sig/Lisa Route PRN Reason Start Time Stop Time Status Last Admin Dose Admin Ondansetron HCl (Zofran Inj) 8 mg ONCE STAT IM 03/10/17 12:12 03/10/17 12:14 DC 03/10/17 12:27 Procedures/MDM Ultrasound-guided paracentesis note: Ultrasound guidance was used to locate large area of fluid with approximately 5 cm between the peritoneal wall and the intestines. Patient was prepped and draped in sterile fashion, gown mask Gloves ChloraPrep drape was used. Anesthetized with 6 mL of lidocaine using Z tracking. See tracking was also used when thoracentesis kit was used to advance flexible catheter over large-bore needle through the abdominal wall. 5- 1/4 L of fluid were easily obtained. Fluid was clear and yellow in appearance. Patient tolerated procedure well there no complications. Pressure dressing was placed. Patient with liver failure receiving a paracentesis. No signs of spontaneous bacterial peritonitis and afebrile patient who is given instant relief after the procedure. He was given an IM injection of Zofran for nausea that he feels on and off. Is cured his nausea and he continued to chew his, and take p.o. without troubles. Giving him written instructions to instruct [facility] that he is coming here every 4-7 days for paracenteses and ask them to arrange clinic follow-up for him. Patient states that he will comply with these instructions. Departure Diagnosis: Primary Impression: Ascites of liver Additional Impression: Abdominal pain Condition: Stable Patient Instructions: Ascites Additional Instructions: You need to set up follow up in a clinic for routine paracenteses with a frequency of every 4 to 5 days. Let your specialist at [facility] know you have been coming to the emergency room this often for paracenteses. Call your primary care doctor TOMORROW for an appointment during the next 1-2 days.See the doctor sooner or return here if your condition worsens before your appointment time. GALINDO BAILEY DO March 10, 2017 14:09
[2017-03-10 14:14] VITALS: BP 113/61; PULSE 92; RESP 18
== END 2017-03-10 14:14 | disposition home or self-care (01) ==
LOC: E/R 11:38
DX: R18.8 Other ascites (principal); R10.9 Unspecified abdominal pain
CPT/HCPCS: 49083; 96372; J2405; Z7502

== ENCOUNTER 2017-03-13 12:00 | Emergency (ER) | payer OTHER ==
[~2017-03-13] VITALS: Wt 74.0 kg
[~2017-03-13 12:00] MED LIST changes: -CIPR500T4 PO; +ONDA4TAB11 PO
[2017-03-13] MEDS ORDERED: LIDOCAINE 1% (MPF) 5 ML VIAL ONE (13:30)
[2017-03-13 14:00] VITALS: BP 120/80; PULSE 95; RESP 18
--- NOTE | 2017-03-13 14:15 | RADRPT ---
PROCEDURE: US guided paracentesis CLINICAL INDICATION: Ascites TECHNIQUE: Multiple sonographic images were obtained through the patient's abdomen. A site in the patient's RIGHT lower abdomen was selected and marked. The area was prepped and draped in the usual sterile fashion. 1% lidocaine was utilized. A 19-gauge Yueh needle was advanced into the peritonea l space and the introducer was connected to a vacuum drainage bottle. A total of 7200 cc of clear y ellow fluid were drained at the end of the procedure. The patient tolerated the procedure well. COMPARISON: None FINDINGS: Ascites. RPTAT: AA IMPRESSION: Successful ultrasound-guided paracentesis. Physician Mica Date Time Electronically viewed and signed by Physician Mica on 03/13/2017 14:15 /
--- NOTE | 2017-03-13 14:19 | ERD ---
ER Documentation Chief Complaint Date/Time DATE: 03/13/17 TIME: 14:17 Chief Complaint PT HERE FOR PARACENTESIS HPI This is a 36-year-old male well-known to the emergency room or presents to the emergency room again for drainage of ascites. The patient denies any fever or chills. He states that he feels like his abdomen is distended ROS All systems reviewed and are negative except as per history of present illness. Medications Home Meds Active Scripts Ondansetron (Zofran Odt) 4 Mg Tab.rapdis, 4 MG PO Q6 for NAUSEA, #14 Prov:GALINDO BAILEY DO 03/10/17 Insulin Aspart* (Novolog Insulin Pen*) 100 Unit/Ml Soln, 10 UNIT SC WITH MEALS BEDTIME for 28 Days Prov:JERZY BENSON MD 08/27/16 Reported Medications Insulin Glargine* (Lantus*) 100 Unit/Ml Soln, 25 UNIT SC QHS, #1 VIAL 08/23/16 Losartan Potassium* (Cozaar*) 25 Mg Tablet, 25 MG PO DAILY, #30 TAB 08/23/16 Pantoprazole* (Protonix*) 40 Mg Tablet.dr, 40 MG PO DAILY, TAB 08/23/16 Discontinued Scripts Ciprofloxacin Hcl* (Ciprofloxacin Hcl*) 500 Mg Tablet, 500 MG PO BID for 10 Days , TAB Prov:GAVIN CASTILLO MD 02/17/17 Ondansetron (Ondansetron Odt) 4 Mg Tab.rapdis, 4 MG PO Q6H Y for NAUSEA AND/OR VOMITING, #10 TAB Prov:GAVIN CASTILLO MD 02/17/17 Hydrocodone/Acetaminophen ([place] 5-325 Tablet) 1 Each Tablet, 1 TAB PO Q6H Y for PAIN, #7 TAB Prov:GAVIN CASTILLO MD 02/17/17 Allergies Allergies: Coded Allergies: No Known Drug Allergy (Verified Allergy, Unknown, 03/13/17) PMhx/Soc History of Surgery: No Anesthesia Reaction: No Hx Neurological Disorder: No Hx Respiratory Disorders: No Hx Cardiac Disorders: No Hx Psychiatric Problems: No Hx Miscellaneous Medical Probl: Yes (liver cirrhosis, regular paracentises) Hx Alcohol Use: Yes (NO LONGER DRINKS) Hx Substance Use: No Hx Tobacco Use: No Smoking Status: Former smoker Physical Exam Vitals Vital Signs Date Time Temp Pulse Resp B/P Pulse Ox O2 Delivery O2 Flow Rate FiO2 03/13/17 12:02 97.8 99 18 123/79 99 Physical Exam Const: No acute distress Head: Atraumatic Eyes: Normal Conjunctiva ENT: Normal External Ears, Nose and Mouth. Neck: Full range of motion..~ No meningismus. Resp: Clear to auscultation bilaterally Cardio: Regular rate and rhythm, no murmurs Abd: Mild abdominal distention, nontender, normal bowel sounds Skin: No petechiae or rashes Back: No midline or flank tenderness Ext: No cyanosis, or edema Neur: Awake and alert Psych: Normal Mood and Affect Results 24 hrs Current Medications Medications (Trade) Dose Ordered Sig/Lisa Route PRN Reason Start Time Stop Time Status Last Admin Dose Admin Lidocaine (Xylocaine 1% (Mpf)) 5 ml STK-MED ONCE .ROUTE 03/13/17 13:30 03/13/17 13:31 DC Procedures/MDM This 46-year-old male presents to the ER for evaluation of abdominal distention. This patient is well-known to the emergency room is been seen multiple times in the past for drainage of ascites. The patient did have 7 L drained today. He is asymptomatic at this time, not hypotensive, will be discharged home. Departure Diagnosis: Primary Impression: Ascites Condition: Stable TOMMY LEWIS DO Mar 13, 2017 14:19
== END 2017-03-13 14:46 | disposition home or self-care (01) ==
LOC: E/R 12:00
DX: R18.8 Other ascites (principal); E11.9 Type 2 diabetes mellitus without complications; Z79.4 Long term (current) use of insulin; Z87.891 Personal history of nicotine dependence
CPT/HCPCS: Z7610 ×2

== ENCOUNTER 2017-03-16 13:09 | Emergency (ER) | payer OTHER ==
[~2017-03-16] VITALS: Ht 167.6 cm; Wt 78.0 kg
[2017-03-16 13:10] VITALS: Ht 167.6 cm; Wt 78.0 kg
--- NOTE | 2017-03-16 15:25 | ERD ---
ER Documentation Chief Complaint Date/Time DATE: 03/16/17 TIME: 15:24 Chief Complaint HPI 56-year-old male well-known to this emergency department with a history of cirrhosis who presents for paracentesis. He describes abdominal bloating and swelling. Last paracentesis on . He denies hematemesis melena fevers or chills. No other complaints. ROS All systems reviewed and are negative except as per history of present illness. Medications Home Meds Active Scripts Ondansetron (Zofran Odt) 4 Mg Tab.rapdis, 4 MG PO Q6 for NAUSEA, #14 Prov:GALINDO BAILEY DO 03/10/17 Insulin Aspart* (Novolog Insulin Pen*) 100 Unit/Ml Soln, 10 UNIT SC WITH MEALS BEDTIME for 28 Days Prov:JERZY BENSON MD 08/27/16 Reported Medications Insulin Glargine* (Lantus*) 100 Unit/Ml Soln, 25 UNIT SC QHS, #1 VIAL 08/23/16 Losartan Potassium* (Cozaar*) 25 Mg Tablet, 25 MG PO DAILY, #30 TAB 08/23/16 Pantoprazole* (Protonix*) 40 Mg Tablet.dr, 40 MG PO DAILY, TAB 08/23/16 Discontinued Scripts Ciprofloxacin Hcl* (Ciprofloxacin Hcl*) 500 Mg Tablet, 500 MG PO BID for 10 Days , TAB Prov:GAVIN CASTILLO MD 02/17/17 Allergies Allergies: Coded Allergies: No Known Drug Allergy (Verified Allergy, Unknown, 03/13/17) PMhx/Soc History of Surgery: No Anesthesia Reaction: No Hx Neurological Disorder: No Hx Respiratory Disorders: No Hx Cardiac Disorders: No Hx Psychiatric Problems: No Hx Miscellaneous Medical Probl: Yes (liver cirrhosis, regular paracentises) Hx Alcohol Use: Yes (NO LONGER DRINKS) Hx Substance Use: No Hx Tobacco Use: No FmHx Family History: No diabetes Physical Exam Vitals Vital Signs Date Time Temp Pulse Resp B/P Pulse Ox O2 Delivery O2 Flow Rate FiO2 03/16/17 13:10 98.6 74 20 128/77 98 Physical Exam General: Well developed, well nourished, no acute distress Head: Normocephalic, atraumatic. Eyes: Pupils equally reactive, EOM intact ENT: Moist mucous membranes Neck: Supple, no lymphadenopathy Respiratory: Lungs clear bilaterally, no distress Cardiovascular: RRR, no murmurs, rubs, or gallops Abdominal: Soft, protuberant with fluid wave, nontender, no peritonitis : Deferred MSK: No edema, no unilateral swelling, 5/5 strength Neurologic: Alert and oriented, moving all extremities, normal speech, no focal weakness, no cerebellar signs Skin: No rash Psych: Normal mood Result Diagram: 03/16/17 1520 03/16/17 1520 Results 24 hrs Laboratory Tests Test 03/16/17 15:20 03/16/17 18:39 White Blood Count 6.010^3/ul Red Blood Count 3.4010^6/ul Hemoglobin 9.8g/dl Hematocrit 29.8% Mean Corpuscular Volume 87.6fl Mean Corpuscular Hemoglobin 28.8pg Mean Corpuscular Hemoglobin Concent 32.9g/dl Red Cell Distribution Width 14.1% Platelet Count 01873^3/UL Mean Platelet Volume 11.7fl Neutrophils % 76.7% Lymphocytes % 6.8% Monocytes % 14.4% Eosinophils % 0.8% Basophils % 0.8% Nucleated Red Blood Cells % 0.0/100WBC Neutrophils # 4.610^3/ul Lymphocytes # 0.410^3/ul Monocytes # 0.910^3/ul Eosinophils # 0.110^3/ul Basophils # 0.110^3/ul Nucleated Red Blood Cells # 0.010^3/ul Prothrombin Time 14.1Sec Prothrombin Time Ratio 1.1 INR International Normalized Ratio 1.09 Activated Partial Thromboplast Time 29.2Sec Sodium Level 123mmol/L Potassium Level 5.7mmol/L Chloride Level 94mmol/L Carbon Dioxide Level 22mmol/L Anion Gap 13 Blood Urea Nitrogen 21mg/dl Creatinine 1.03mg/dl Glucose Level 465mg/dl Calcium Level 8.5mg/dl Total Bilirubin 0.6mg/dl Direct Bilirubin 0.00mg/dl Indirect Bilirubin 0.6mg/dl Aspartate Amino Transf (AST/SGOT) 94IU/L Alanine Aminotransferase (ALT/SGPT) 70IU/L Alkaline Phosphatase 277IU/L Total Protein 6.5g/dl Albumin 3.2g/dl Globulin 3.30g/dl Albumin/Globulin Ratio 0.96 Lipase 31U/L Bedside Glucose 400mg/dL Current Medications Medications (Trade) Dose Ordered Sig/Lisa Route PRN Reason Start Time Stop Time Status Last Admin Dose Admin Insulin Human Lispro (Humalog) 6 unit ONCE STAT SC 03/16/17 16:46 03/16/17 16:47 DC Lidocaine (Xylocaine 1% (Mpf)) 5 ml STK-MED ONCE .ROUTE 03/16/17 18:33 03/16/17 18:34 DC 03/16/17 18:39 Procedures/MDM EKG, MONITORS, & DIAGNOSTIC IMAGING: Large volume therapeutic paracentesis performed by interventional radiology. LAB INTERPRETATION: No significant coagulopathy noted. MEDICAL DECISION MAKING: The patient presents with abdominal ascites likely secondary to cirrhosis. Patient does not exhibit any signs or symptoms concerning for complications of cirrhosis such as GI bleed, hepatic encephalopathy or spontaneous bacterial peritonitis. There is no indication currently for diagnostic paracentesis. The patient will benefit from large volume therapeutic paracentesis by interventional radiology. If the patient remains stable without evidence of hemodynamic compromise secondary to fluid shifts the patient can be safely discharged home with close primary care and hepatology follow-up. ER COURSE: The patient had successful large volume therapeutic paracentesis. The patient remained hemodynamically stable and otherwise well-appearing. The patient is safe for discharge home. Hyperglycemia without DKA. Patient given 6 units of Humalog. I kept the patient and/or family informed of laboratory and diagnostic imaging results throughout the emergency room course. DISPOSITION PLAN: We discussed follow up with the patient's primary care doctor within 24 to 48 hours as needed. We also discussed return to the emergency room for worsening symptoms or worsening condition. Discharge Medications: None Departure Diagnosis: Primary Impression: Ascites due to alcoholic cirrhosis Additional Impression: Hyperglycemia Condition: Stable CLINTON TAMAYO MD Mar 16, 2017 15:25
[2017-03-16 15:38] LABS: ADD SCAN DIFF NO
[2017-03-16 15:42] LABS: ABNORMAL IP MESSAGE 1; BASOPHIL # 0.1 10^3/ul (0.0-0.1); BASOPHILS % 0.8 % (0.0-2.0); EOSINOPHILS # 0.1 10^3/ul (0.0-0.5); EOSINOPHILS % 0.8 % (0.0-7.0); HEMATOCRIT 29.8 % (42.0-52.0); HEMOGLOBIN 9.8 g/dl (14.0-18.0); LYMPHOCYTES # 0.4 10^3/ul (0.8-2.9); LYMPHOCYTES % 6.8 % (15.0-51.0); MEAN CORPUSCULAR HEMOGLOBIN 28.8 pg (29.0-33.0); MEAN CORPUSCULAR HGB CONC 32.9 g/dl (32.0-37.0); MEAN CORPUSCULAR VOLUME 87.6 fl (82.0-101.0); MEAN PLATELET VOLUME 11.7 fl (7.4-10.4); MONOCYTE # 0.9 10^3/ul (0.3-0.9); MONOCYTES % 14.4 % (0.0-11.0); NEUTROPHIL # 4.6 10^3/ul (1.6-7.5); NEUTROPHILS % 76.7 % (39.0-77.0); PLATELET COUNT 179 10^3/UL (140-415); RED CELL DISTRIBUTION WIDTH 14.1 % (11.5-14.5)
[2017-03-16 15:59] LABS: INR 1.09; PROTIME 14.1 Sec (12.2-14.2); PT RATIO 1.1
[2017-03-16 16:00] LABS: PARTIAL THROMBOPLASTIN TIME 29.2 Sec (25.0-35.0)
[2017-03-16 16:01] LABS: ALBUMIN 3.2 g/dl (3.3-4.9); ALBUMIN/GLOBULIN RATIO 0.96; BILIRUBIN,INDIRECT 0.6 mg/dl (0-1.1); BILIRUBIN,TOTAL 0.6 mg/dl (0.2-1.3); CALCIUM 8.5 mg/dl (8.4-10.2); CREATININE 1.03 mg/dl (0.61-1.24); TOTAL PROTEIN 6.5 g/dl (6.1-8.1)
[2017-03-16 16:04] LABS: POTASSIUM 5.7 mmol/L (3.5-5.1)
[2017-03-16] MEDS ORDERED: INSULIN LISPRO 100 UNIT/ML VIAL SC STA (16:46)
[2017-03-16] MEDS ORDERED: LIDOCAINE 1% (MPF) 5 ML VIAL ONE (18:33)
--- NOTE | 2017-03-16 18:33 | RADRPT ---
PROCEDURE: Ultrasound-guided paracentesis. CLINICAL INDICATION: Ascites . Therapeutic. TECHNIQUE: The patient was informed of the benefits and risks of the procedure and signed consent was obtained. Risks include bleeding, infection, visceral organ or bowel injury. The abdomen was s terilely prepped and draped. Local anesthesia with 1% lidocaine was administered. Initial ultrasou nd scanning of the abdomen is performed to locate a pocket of ascites suitable for paracentesis. Un [place] ultrasound guidance, a 19-gauge Yueh multi side-hole centesis needle and sheath was advanced int o the pocket of ascites. Paracentesis performed with vacuum. The patient tolerated procedure well a nd there no complications. Patient left department in stable condition. COMPARISON: 03/13/2017 FINDINGS: Initial scanning shows ascites in the bilateral lower quadrants. IMPRESSION: Ultrasound-guided paracentesis of 6.6 liters of clear yellow ascites from the right abdomen. RPTAT: QQ .Jose Sood MD, Date Time Electronically viewed and signed by .Jose Sood MD, on 03/16/2017 18:33 .L/
[2017-03-16 19:02] VITALS: BP 114/71; PULSE 86; RESP 20; TEMP 98.6
== END 2017-03-16 18:46 | disposition home or self-care (01) ==
LOC: E/R 13:09
DX: K70.31 Alcoholic cirrhosis of liver with ascites (principal); E11.65 Type 2 diabetes mellitus with hyperglycemia; Z79.4 Long term (current) use of insulin
CPT/HCPCS: 80053; 82962; 83690; 85025; 85610; 85730; 96372; J1815; Z7502; Z7610

== ENCOUNTER 2017-04-07 10:26 | Emergency (ER) | payer OTHER ==
[~2017-04-07] VITALS: Ht 165.1 cm; Wt 60.0 kg
[2017-04-07 10:28] VITALS: Ht 165.1 cm; Wt 60.0 kg
[2017-04-07 11:57] LABS: ADD SCAN DIFF NO
[2017-04-07 12:09] LABS: ABNORMAL IP MESSAGE 1; BASOPHIL # 0.1 10^3/ul (0.0-0.1); BASOPHILS % 1.2 % (0.0-2.0); EOSINOPHILS # 0.1 10^3/ul (0.0-0.5); EOSINOPHILS % 1.7 % (0.0-7.0); HEMATOCRIT 27.6 % (42.0-52.0); HEMOGLOBIN 9.2 g/dl (14.0-18.0); LYMPHOCYTES # 0.6 10^3/ul (0.8-2.9); LYMPHOCYTES % 7.7 % (15.0-51.0); MEAN CORPUSCULAR HEMOGLOBIN 29.6 pg (29.0-33.0); MEAN CORPUSCULAR HGB CONC 33.3 g/dl (32.0-37.0); MEAN CORPUSCULAR VOLUME 88.7 fl (82.0-101.0); MEAN PLATELET VOLUME 10.5 fl (7.4-10.4); MONOCYTES % 13.1 % (0.0-11.0); NEUTROPHIL # 5.5 10^3/ul (1.6-7.5); NEUTROPHILS % 75.9 % (39.0-77.0); PLATELET COUNT 241 10^3/UL (140-415); RED BLOOD COUNT 3.11 10^6/ul (4.70-6.10); RED CELL DISTRIBUTION WIDTH 17.5 % (11.5-14.5); WHITE BLOOD COUNT 7.3 10^3/ul (4.8-10.8)
[2017-04-07 12:14] LABS: INR 1.68; PROTIME 19.9 Sec (12.2-14.2); PT RATIO 1.6
[2017-04-07 12:15] LABS: PARTIAL THROMBOPLASTIN TIME 37.7 Sec (25.0-35.0)
[2017-04-07 12:21] LABS: ALBUMIN 2.7 g/dl (3.3-4.9); ALBUMIN/GLOBULIN RATIO 0.81; BILIRUBIN,DIRECT 0.1 mg/dl (0.00-0.20); BILIRUBIN,INDIRECT 1.2 mg/dl (0-1.1); BILIRUBIN,TOTAL 1.3 mg/dl (0.2-1.3); POTASSIUM 4.2 mmol/L (3.5-5.1)
--- NOTE | 2017-04-07 12:52 | ERD ---
ER Documentation Chief Complaint Date/Time DATE: 04/07/17 TIME: 12:50 Chief Complaint Complains of abdominal pain Hx of ascites HPI 56-year-old male well-known to this emergency department with alcoholic cirrhosis on the transplant list at [facility] with recent stents at [facility] for pretransplant workup. The patient presents with abdominal swelling consistent with his ascites. He denies any fevers or chills or significant abdominal pain. Mild ankle swelling since his stent procedure but no chest pain or shortness of breath or dyspnea on exertion. No hematemesis melena or confusion. ROS All systems reviewed and are negative except as per history of present illness. Medications Home Meds Active Scripts Ondansetron (Zofran Odt) 4 Mg Tab.rapdis, 4 MG PO Q6 for NAUSEA, #14 Prov:GALINDO BAILEY DO 03/10/17 Insulin Aspart* (Novolog Insulin Pen*) 100 Unit/Ml Soln, 10 UNIT SC WITH MEALS BEDTIME for 28 Days Prov:JERZY BENSON MD 08/27/16 Reported Medications Insulin Glargine* (Lantus*) 100 Unit/Ml Soln, 25 UNIT SC QHS, #1 VIAL 08/23/16 Losartan Potassium* (Cozaar*) 25 Mg Tablet, 25 MG PO DAILY, #30 TAB 08/23/16 Pantoprazole* (Protonix*) 40 Mg Tablet.dr, 40 MG PO DAILY, TAB 08/23/16 Allergies Allergies: Coded Allergies: No Known Drug Allergy (Verified Allergy, Unknown, 03/20/17) PMhx/Soc History of Surgery: No Anesthesia Reaction: No Hx Neurological Disorder: No Hx Respiratory Disorders: No Hx Cardiac Disorders: No Hx Psychiatric Problems: No Hx Miscellaneous Medical Probl: Yes (liver cirrhosis, regular paracentises, DM) Hx Alcohol Use: Yes (NO LONGER DRINKS) Hx Substance Use: No Hx Tobacco Use: No Physical Exam Vitals Vital Signs Date Time Temp Pulse Resp B/P Pulse Ox O2 Delivery O2 Flow Rate FiO2 04/07/17 10:28 98.3 86 20 107/70 98 Physical Exam General: Well developed, well nourished, no acute distress Head: Normocephalic, atraumatic. Eyes: Pupils equally reactive, EOM intact ENT: Moist mucous membranes Neck: Supple, no lymphadenopathy Respiratory: Lungs clear bilaterally, no distress Cardiovascular: RRR, no murmurs, rubs, or gallops Abdominal: Soft, protuberant with ascites with fluid wave, non-distended, no peritoneal signs : Deferred MSK: Bilateral lower extremity pitting edema slightly worse than baseline, no unilateral swelling, 5/5 strength Neurologic: Alert and oriented, moving all extremities, normal speech, no focal weakness, no cerebellar signs Skin: No rash Psych: Normal mood Result Diagram: 04/07/17 1128 04/07/17 1128 Results 24 hrs Laboratory Tests Test 04/07/17 11:28 White Blood Count 7.310^3/ul Red Blood Count 3.1110^6/ul Hemoglobin 9.2g/dl Hematocrit 27.6% Mean Corpuscular Volume 88.7fl Mean Corpuscular Hemoglobin 29.6pg Mean Corpuscular Hemoglobin Concent 33.3g/dl Red Cell Distribution Width 17.5% Platelet Count 83885^3/UL Mean Platelet Volume 10.5fl Neutrophils % 75.9% Lymphocytes % 7.7% Monocytes % 13.1% Eosinophils % 1.7% Basophils % 1.2% Nucleated Red Blood Cells % 0.0/100WBC Neutrophils # 5.510^3/ul Lymphocytes # 0.610^3/ul Monocytes # 1.010^3/ul Eosinophils # 0.110^3/ul Basophils # 0.110^3/ul Nucleated Red Blood Cells # 0.010^3/ul Prothrombin Time 19.9Sec Prothrombin Time Ratio 1.6 INR International Normalized Ratio 1.68 Activated Partial Thromboplast Time 37.7Sec Sodium Level 127mmol/L Potassium Level 4.2mmol/L Chloride Level 96mmol/L Carbon Dioxide Level 25mmol/L Anion Gap 10 Blood Urea Nitrogen 15mg/dl Creatinine 1.00mg/dl Glucose Level 217mg/dl Calcium Level 8.0mg/dl Total Bilirubin 1.3mg/dl Direct Bilirubin 0.10mg/dl Indirect Bilirubin 1.2mg/dl Aspartate Amino Transf (AST/SGOT) 130IU/L Alanine Aminotransferase (ALT/SGPT) 68IU/L Alkaline Phosphatase 686IU/L Total Protein 6.0g/dl Albumin 2.7g/dl Globulin 3.30g/dl Albumin/Globulin Ratio 0.81 Lipase 22U/L Current Medications Medications (Trade) Dose Ordered Sig/Lisa Route PRN Reason Start Time Stop Time Status Last Admin Dose Admin Lidocaine (Xylocaine 1% (Mpf)) 5 ml STK-MED ONCE .ROUTE 04/07/17 13:48 04/07/17 13:49 DC Procedures/MDM EKG, MONITORS, & DIAGNOSTIC IMAGING: Large volume therapeutic paracentesis performed by interventional radiology. LAB INTERPRETATION: No significant coagulopathy noted. MEDICAL DECISION MAKING: The patient presents with abdominal ascites likely secondary to cirrhosis. Patient does not exhibit any signs or symptoms concerning for complications of cirrhosis such as GI bleed, hepatic encephalopathy or spontaneous bacterial peritonitis. There is no indication currently for diagnostic paracentesis. The patient will benefit from large volume therapeutic paracentesis by interventional radiology. If the patient remains stable without evidence of hemodynamic compromise secondary to fluid shifts the patient can be safely discharged home with close primary care and hepatology follow-up. ER COURSE: The patient had successful large volume therapeutic paracentesis. The patient remained hemodynamically stable and otherwise well-appearing. The patient is safe for discharge home. I kept the patient and/or family informed of laboratory and diagnostic imaging results throughout the emergency room course. DISPOSITION PLAN: We discussed follow up with the patient's primary care doctor within 24 to 48 hours as needed. We also discussed return to the emergency room for worsening symptoms or worsening condition. Discharge Medications: None Departure Diagnosis: Primary Impression: Ascites due to alcoholic cirrhosis Condition: Stable CLINTON TAMAYO MD Apr 07, 2017 12:52
[2017-04-07] MEDS ORDERED: LIDOCAINE 1% (MPF) 5 ML VIAL ONE (13:48)
[2017-04-07] MEDS ORDERED: LIDOCAINE 1% (MPF) 5 ML VIAL INJ SCH ×3 (14:30)
--- NOTE | 2017-04-07 14:42 | RADRPT ---
PROCEDURE: Ultrasound guided paracentesis. CLINICAL INDICATION: Ascites and shortness of breath. COMPARISON: No prior studies are available for comparison. TECHNIQUE: The risks, benefits, and alternatives were explained to the patient and/or the patient's family, inc luding but not limited to bleeding, infection, pain, visceral or vascular damage, shock, and . The patient and/or the patient's family understood the risks and the alternatives and wished to pro ceed with the procedure. Informed written consent was obtained. A procedural time out was performed . The patient's name, date of , and procedure to be performed were verified. Utilizing ultrasound guidance, optimal location for entry to the peritoneal cavity was ascertained. The overlying skin was prepped and draped in the usual sterile fashion. Approximately 10 ml of 1% Xylocaine was injected locally for pain control. Using ultrasound guidance, an 8 [place] catheter wa s introduced into the peritoneal cavity in the right lower quadrant without difficulty. FINDINGS: Initial images demonstrate ascites. Approximately 3.2 liters of serous fluid was aspirated and disc arded. The patient tolerated the procedure well without complication. IMPRESSION: 1. Successful ultrasound-guided paracentesis. RPTAT: QQ .Thierno Ventura MD, Date Time Electronically viewed and signed by .Thierno Ventura MD, on 04/07/2017 14:42 .R/
== END 2017-04-07 14:19 | disposition home or self-care (01) ==
LOC: E/R 10:26
DX: K70.31 Alcoholic cirrhosis of liver with ascites (principal); E11.9 Type 2 diabetes mellitus without complications; Z79.4 Long term (current) use of insulin
CPT/HCPCS: 80053; 83690; 85025; 85610; 85730; Z7610; 36415

== ENCOUNTER 2017-04-12 11:00 | Emergency (ER) | payer MEDICAID, OTHER ==
[~2017-04-12] VITALS: Ht 160 cm; Wt 72.0 kg
[2017-04-12 11:03] VITALS: Ht 160 cm; Wt 72.0 kg
[2017-04-12] MEDS: ONDANSETRON 4 MG INJ IV STA ×2 (11:09→12:28)
[2017-04-12] MEDS ORDERED: HYDROCODONE/APAP (5/325) TAB PO ONE (11:30)
[2017-04-12 11:55] LABS: ABNORMAL IP MESSAGE 1; BASOPHIL # 0.1 10^3/ul (0.0-0.1); EOSINOPHILS # 0.1 10^3/ul (0.0-0.5); EOSINOPHILS % 1.9 % (0.0-7.0); HEMATOCRIT 27.1 % (42.0-52.0); HEMOGLOBIN 8.6 g/dl (14.0-18.0); LYMPHOCYTES # 0.6 10^3/ul (0.8-2.9); LYMPHOCYTES % 7.5 % (15.0-51.0); MEAN CORPUSCULAR HEMOGLOBIN 28.1 pg (29.0-33.0); MEAN CORPUSCULAR HGB CONC 31.7 g/dl (32.0-37.0); MEAN CORPUSCULAR VOLUME 88.6 fl (82.0-101.0); MEAN PLATELET VOLUME 10.8 fl (7.4-10.4); MONOCYTE # 0.7 10^3/ul (0.3-0.9); NEUTROPHIL # 5.9 10^3/ul (1.6-7.5); NEUTROPHILS % 80.2 % (39.0-77.0); PLATELET COUNT 185 10^3/UL (140-415); RED BLOOD COUNT 3.06 10^6/ul (4.70-6.10); WHITE BLOOD COUNT 7.3 10^3/ul (4.8-10.8)
[2017-04-12 12:12] LABS: ALBUMIN 2.4 g/dl (3.3-4.9); ALBUMIN/GLOBULIN RATIO 0.77; BILIRUBIN,INDIRECT 0.9 mg/dl (0-1.1); BILIRUBIN,TOTAL 0.9 mg/dl (0.2-1.3); CALCIUM 7.6 mg/dl (8.4-10.2); CREATININE 0.94 mg/dl (0.61-1.24); POTASSIUM 5.3 mmol/L (3.5-5.1); TOTAL PROTEIN 5.5 g/dl (6.1-8.1)
[2017-04-12] MEDS ORDERED: morphine 4 MG/ML VIAL IV STA (12:16)
[2017-04-12 12:17] LABS: INR 1.65; PARTIAL THROMBOPLASTIN TIME 35.9 Sec (25.0-35.0); PROTIME 19.6 Sec (12.2-14.2); PT RATIO 1.5
[2017-04-12] MEDS ORDERED: FUROSEMIDE 20 MG INJ IV ONE (12:30)
--- NOTE | 2017-04-12 14:25 | RADRPT ---
PROCEDURE: US Abdomen. CLINICAL INDICATION: Ascites TECHNIQUE: Multiple real-time images were acquired of the patient's abdomen using a high resolutio n linear transducer. COMPARISON: April 07, 2017 FINDINGS: At this time, no significant pocket of fluid was identified within the abdomen. Abundant distended bowel loops are present. At this time, ultrasound-guided paracentesis is not safe for the patient. IMPRESSION: Minimal ascites. No definite pocket of fluid was seen for safe ultrasound-guided paracentesis. These findings were discussed with the patient at the completion of the exam. RPTAT: QQ .Corina Amanda MD, MD Date Time Electronically viewed and signed by .Corina Aamnda MD, on 04/12/2017 14:24 .F/
--- NOTE | 2017-04-12 14:40 | ERD ---
ER Documentation Chief Complaint Date/Time DATE: 04/12/17 TIME: 14:32 Chief Complaint generalized abdominal pain, abdominal distention - for paracentesis HPI This 56-year-old male presents for abdominal pain secondary distention from his ascites. He has liver failure and presents routinely to this ER for paracenteses. He gets most of his treatment done including liver stenting done at [facility]. They have not arrange proper clinic follow-up yet. He states that he has his normal pain with no fevers or chills. No increasing abdominal pain. He also has bilateral lower extremity edema is been going on for a few weeks. He is on spironolactone and Lasix at home. He has not taken his diabetic medications yet. Otherwise feels well. He does request something for pain while he waits for the paracentesis to be performed. ROS All systems reviewed and are negative except as per history of present illness. Medications Home Meds Active Scripts Insulin Aspart* (Novolog Insulin Pen*) 100 Unit/Ml Soln, 10 UNIT SC WITH MEALS BEDTIME for 28 Days Prov:JERZY BENSON MD 08/27/16 Reported Medications Insulin Glargine* (Lantus*) 100 Unit/Ml Soln, 25 UNIT SC QHS, #1 VIAL 08/23/16 Losartan Potassium* (Cozaar*) 25 Mg Tablet, 25 MG PO DAILY, #30 TAB 08/23/16 Pantoprazole* (Protonix*) 40 Mg Tablet.dr, 40 MG PO DAILY, TAB 08/23/16 Discontinued Scripts Ondansetron (Zofran Odt) 4 Mg Tab.rapdis, 4 MG PO Q6 for NAUSEA, #14 Prov:GALINDO BAILEY DO 03/10/17 Allergies Allergies: Coded Allergies: No Known Drug Allergy (Verified Allergy, Unknown, 04/12/17) PMhx/Soc History of Surgery: Yes (stent placement) Anesthesia Reaction: No Hx Neurological Disorder: No Hx Respiratory Disorders: No Hx Cardiac Disorders: No Hx Psychiatric Problems: No Hx Miscellaneous Medical Probl: Yes (liver cirrhosis, regular paracentises, DM) Hx Alcohol Use: Yes (NO LONGER DRINKS) Hx Substance Use: No Hx Tobacco Use: No Smoking Status: Never smoker Physical Exam Vitals Vital Signs Date Time Temp Pulse Resp B/P Pulse Ox O2 Delivery O2 Flow Rate FiO2 04/12/17 11:03 97.7 83 19 108/69 100 Physical Exam Const: [] No distress, appears comfortable Head: Atraumatic Eyes: Normal Conjunctiva ENT: Normal External Ears, Nose and Mouth. Neck: Full range of motion..~ No meningismus. Resp: Clear to auscultation bilaterally Cardio: Regular rate and rhythm, no murmurs Abd: Soft, non tender, non distended. Normal bowel sounds Skin: No petechiae or rashes Ext: No cyanosis, 2+ bilateral lower extremity pitting edema Neur: Awake and alert and oriented 3, no focal deficits Psych: Normal Mood and Affect Result Diagram: 04/12/17 1135 04/12/17 1135 Results 24 hrs Laboratory Tests Test 04/12/17 11:35 White Blood Count 7.310^3/ul Red Blood Count 3.0610^6/ul Hemoglobin 8.6g/dl Hematocrit 27.1% Mean Corpuscular Volume 88.6fl Mean Corpuscular Hemoglobin 28.1pg Mean Corpuscular Hemoglobin Concent 31.7g/dl Red Cell Distribution Width 17.0% Platelet Count 02331^3/UL Mean Platelet Volume 10.8fl Neutrophils % 80.2% Lymphocytes % 7.5% Monocytes % 9.0% Eosinophils % 1.9% Basophils % 1.0% Nucleated Red Blood Cells % 0.0/100WBC Neutrophils # 5.910^3/ul Lymphocytes # 0.610^3/ul Monocytes # 0.710^3/ul Eosinophils # 0.110^3/ul Basophils # 0.110^3/ul Nucleated Red Blood Cells # 0.010^3/ul Prothrombin Time 19.6Sec Prothrombin Time Ratio 1.5 INR International Normalized Ratio 1.65 Activated Partial Thromboplast Time 35.9Sec Sodium Level 124mmol/L Potassium Level 5.3mmol/L Chloride Level 97mmol/L Carbon Dioxide Level 22mmol/L Anion Gap 10 Blood Urea Nitrogen 15mg/dl Creatinine 0.94mg/dl Glucose Level 295mg/dl Calcium Level 7.6mg/dl Total Bilirubin 0.9mg/dl Direct Bilirubin 0.00mg/dl Indirect Bilirubin 0.9mg/dl Aspartate Amino Transf (AST/SGOT) 116IU/L Alanine Aminotransferase (ALT/SGPT) 63IU/L Alkaline Phosphatase 637IU/L Total Protein 5.5g/dl Albumin 2.4g/dl Globulin 3.10g/dl Albumin/Globulin Ratio 0.77 Lipase 42U/L Current Medications Medications (Trade) Dose Ordered Sig/Lisa Route PRN Reason Start Time Stop Time Status Last Admin Dose Admin Ondansetron HCl (Zofran Inj) 4 mg ONCE STAT IV 04/12/17 11:09 04/12/17 11:11 DC 04/12/17 12:28 Acetaminophen/ Hydrocodone Bitart (Sigourney (5/325)) 1 tab ONCE ONCE PO 04/12/17 11:30 04/12/17 11:31 DC Morphine Sulfate (morphine) 4 mg ONCE STAT IV 04/12/17 12:16 04/12/17 12:18 DC 04/12/17 12:29 Furosemide (Lasix) 20 mg ONCE ONCE IV 04/12/17 12:30 04/12/17 12:31 DC 04/12/17 12:29 Procedures/MDM 56-year-old male with recurrent ascites as well as hyperkalemia, hyperglycemia and bilateral lower extremity edema. Paracentesis was was not performed by radiology because the patient did have significant ascites. This is consistent with him having stenting to help remove the abdominal fluid. According to the patient this is increased his peripheral edema in his feet. Patient's pain is completely resolved. I had given him 4 of morphine along with 4 of Zofran initially. I have very low concern for spontaneous bacterial peritonitis patient has no white count fever chills or other symptoms out of the ordinary. He does have a mildly elevated potassium of 5.3. I am prescribing him Kayexalate as he is responsible patient and agrees to take it at home. He has hyponatremia approximately at his baseline of 126. Has hyperglycemia and is going to take his diabetic medications when he goes home so I do not want to give him any insulin or treated here aware that he may become hypoglycemic if I do so when he takes his normal medications. Recommending primary care follow- up in 1-2 days as well as strict return precautions to the ER Ultrasound interpretation: Minimal ascitic fluid. Departure Diagnosis: Primary Impression: Peripheral edema Additional Impressions: Ascites of liver Hyperglycemia Hyperkalemia Condition: Stable Patient Instructions: Ascites, Peripheral Edema, Bilateral Additional Instructions: Call your primary care doctor TOMORROW for an appointment during the next 1-2 days.See the doctor sooner or return here if your condition worsens before your appointment time. GALINDO BAILEY DO Apr 12, 2017 14:40
[2017-04-12] MEDS ORDERED: KAYPO PO (14:41)
== END 2017-04-12 14:50 | disposition home or self-care (01) ==
LOC: E/R 11:00
DX: R18.8 Other ascites (principal); E11.65 Type 2 diabetes mellitus with hyperglycemia; E87.5 Hyperkalemia; Z79.4 Long term (current) use of insulin
CPT/HCPCS: 36415; 76705; 80053; 83690; 85025; 85610; 85730; 96374; 96375; J1940; J2270; J2405; Z7502

== ENCOUNTER 2017-05-24 03:18 | Inpatient (IN) | payer MEDICAID ==
[~2017-05-24] VITALS: Ht 160 cm; Wt 58.8 kg
[2017-05-24] VITALS (14 sets, daily range): BP systolic 135–163; BP diastolic 66–103; PULSE 74–95; RESP 16–20; Ht 160 cm; Wt 58.8 kg
[~2017-05-24 03:18] MED LIST changes: +KAYPO PO; -ONDA4TAB11 PO
[2017-05-24] MEDS ORDERED: SOD CHLORIDE 0.9% 500 ML IV STA (03:19)
[2017-05-24] MEDS ORDERED: ONDANSETRON 4 MG INJ IV STA (03:19)
[2017-05-24] MEDS ORDERED: LORAZEPAM 2 MG INJ ONE (04:06)
[2017-05-24] MEDS: LORAZEPAM 2 MG INJ IV ONE ×2 (04:08→04:10)
--- NOTE | 2017-05-24 04:10 | ERA ---
ER Documentation Chief Complaint Date/Time DATE: 05/24/17 TIME: 04:06 Chief Complaint HEATH RA39,confused per family report HPI This 56-year-old male is brought in by ambulance after family called 911 because the patient is more altered than usual. He does have a history of liver failure and has had hepatic encephalopathy in the past. Patient himself is unable to answer questions appropriately. Family reports no fevers or trauma. ROS Unobtainable Medications Home Meds Active Scripts Sodium Polystyrene Sulfonate (Kayexalate) 15 Gm/60 Ml Susp, 15 GM PO BID for 3 Days, ML Prov:GALINDO BAILEY DO 04/12/17 Reported Medications Insulin Glargine* (Lantus*) 100 Unit/Ml Soln, 0 SC BID, #1 VIAL 05/24/17 Losartan Potassium* (Cozaar*) 25 Mg Tablet, 25 MG PO DAILY, #30 TAB 08/23/16 Pantoprazole* (Protonix*) 40 Mg Tablet.dr, 40 MG PO DAILY, TAB 08/23/16 Discontinued Reported Medications Insulin Glargine* (Lantus*) 100 Unit/Ml Soln, 25 UNIT SC QHS, #1 VIAL 08/23/16 Discontinued Scripts Insulin Aspart* (Novolog Insulin Pen*) 100 Unit/Ml Soln, 10 UNIT SC WITH MEALS BEDTIME for 28 Days Prov:JERZY BENSON MD 08/27/16 Allergies Allergies: Coded Allergies: No Known Drug Allergy (Verified Allergy, Unknown, 04/12/17) PMhx/Soc History of Surgery: Yes (stent placement) Anesthesia Reaction: No Hx Neurological Disorder: No Hx Respiratory Disorders: No Hx Cardiac Disorders: No Hx Psychiatric Problems: No Hx Miscellaneous Medical Probl: Yes (liver cirrhosis, regular paracentises, DM) Hx Alcohol Use: Yes (NO LONGER DRINKS) Hx Substance Use: No Hx Tobacco Use: No Smoking Status: Never smoker Physical Exam Vitals Vital Signs Date Time Temp Pulse Resp B/P Pulse Ox O2 Delivery O2 Flow Rate FiO2 05/24/17 04:18 91 11 152/91 99 Room Air 05/24/17 03:28 98.1 67 19 148/85 100 Physical Exam Const: [] Mild distress, altered and agitated Head: Atraumatic Eyes: Normal Conjunctiva mild scleral icterus ENT: Normal External Ears, Nose and Mouth. Neck: Full range of motion..~ No meningismus. Resp: Clear to auscultation bilaterally Cardio: Regular rate and rhythm, no murmurs Abd: Soft, no apparent specific tenderness, mild distention with fluid wave. Normal bowel sounds Skin: No petechiae or rashes Back: No midline or flank tenderness Ext: No cyanosis, or edema, distal pulses intact all 4 extreme Neur: Awake and alert, moves all 4 extremities, answers some questions., Coordinated with purposeful movements per Psych: Anxiety and agitation Result Diagram: 05/24/17 0351 05/24/17 0351 Results 24 hrs Laboratory Tests Test 05/24/17 03:51 05/24/17 04:30 White Blood Count 11.010^3/ul Red Blood Count 3.6710^6/ul Hemoglobin 10.3g/dl Hematocrit 31.1% Mean Corpuscular Volume 84.7fl Mean Corpuscular Hemoglobin 28.1pg Mean Corpuscular Hemoglobin Concent 33.1g/dl Red Cell Distribution Width 17.3% Platelet Count 36120^3/UL Mean Platelet Volume 11.5fl Neutrophils % 87.7% Lymphocytes % 4.2% Monocytes % 6.7% Eosinophils % 0.6% Basophils % 0.4% Nucleated Red Blood Cells % 0.0/100WBC Neutrophils # 9.710^3/ul Lymphocytes # 0.510^3/ul Monocytes # 0.710^3/ul Eosinophils # 0.110^3/ul Basophils # 0.010^3/ul Nucleated Red Blood Cells # 0.010^3/ul Prothrombin Time Pending Prothrombin Time Ratio 1.2 INR International Normalized Ratio Pending Activated Partial Thromboplast Time 34.2Sec Sodium Level 133mmol/L Potassium Level 4.2mmol/L Chloride Level 95mmol/L Carbon Dioxide Level 25mmol/L Anion Gap 17 Blood Urea Nitrogen 18mg/dl Creatinine 0.94mg/dl Glucose Level 198mg/dl Calcium Level 10.2mg/dl Total Bilirubin 1.8mg/dl Direct Bilirubin 0.00mg/dl Indirect Bilirubin 1.8mg/dl Aspartate Amino Transf (AST/SGOT) 83IU/L Alanine Aminotransferase (ALT/SGPT) 111IU/L Alkaline Phosphatase 276IU/L Ammonia 60umol/l Troponin I 0.035ng/ml Total Protein 9.0g/dl Albumin 4.3g/dl Globulin 4.70g/dl Albumin/Globulin Ratio 0.91 Lipase 26U/L Urine Color STRAW Urine Clarity CLEAR Urine pH 8.0 Urine Specific [place] 1.006 Urine Ketones NEGATIVEmg/dL Urine Nitrite NEGATIVEmg/dL Urine Bilirubin NEGATIVEmg/dL Urine Urobilinogen NEGATIVEmg/dL Urine Leukocyte Esterase NEGATIVELeu/ul Urine Microscopic RBC 111/HPF Urine Microscopic WBC 3/HPF Urine Calcium Oxalate Crystals MODERATE/HPF Urine Hemoglobin 3+mg/dL Urine Glucose NEGATIVEmg/dL Urine Total Protein NEGATIVEmg/dl Current Medications Medications (Trade) Dose Ordered Sig/Lisa Route PRN Reason Start Time Stop Time Status Last Admin Dose Admin Sodium Chloride (NS) 500 ml @ 500 mls/hr Q1H STAT IV 05/24/17 03:19 05/24/17 04:18 DC 05/24/17 04:16 Ondansetron HCl (Zofran Inj) 4 mg ONCE STAT IV 05/24/17 03:19 05/24/17 03:22 DC 05/24/17 04:16 Lorazepam (Ativan) 1 mg ONCE ONCE IV 05/24/17 04:30 05/24/17 04:31 DC 05/24/17 04:10 Lorazepam (Ativan) 2 mg STK-MED ONCE .ROUTE 05/24/17 04:06 05/24/17 04:07 DC Procedures/MDM EKG interpretation: Normal sinus rhythm rate of 68, normal axis, no ST or T- wave changes concerning for acute ischemia, normal intervals. Normal EKG. Ammonia is high and double of the upper limit of normal however not severely high. Patient was very altered compared to when I have seen him in the past, he was thrashing about in calling out for his . He did need to be restrained and was given 1 mg of Ativan which did help somewhat. Is given lactulose which was able to tolerate. I have very low suspicion for SBP as the patient is afebrile and has had hepatic encephalopathy in the past. See no reason for any emergent paracentesis. Patient is going to be admitted to telemetry for further monitoring during his hepatic encephalopathy causing his agitation. EKG interpretation: 68 normal sinus rhythm, normal axis, no ST or T-wave changes concerning for acute ischemia. Normal intervals ekg monitor interpretation: Normal sinus rhythm without arrhythmia CT head interpretation: Pending radiology read however I see no acute process. I see no hemorrhage, no mass-effect no midline shift, no skull fracture. Departure Diagnosis: Primary Impression: Hepatic encephalopathy Additional Impressions: Altered mental status Chronic liver disease GALINDO BAILEY DO May 24, 2017 04:10
[2017-05-24 04:19] LABS: ABNORMAL IP MESSAGE 1; BASOPHILS % 0.4 % (0.0-2.0); EOSINOPHILS # 0.1 10^3/ul (0.0-0.5); EOSINOPHILS % 0.6 % (0.0-7.0); HEMATOCRIT 31.1 % (42.0-52.0); HEMOGLOBIN 10.3 g/dl (14.0-18.0); LYMPHOCYTES # 0.5 10^3/ul (0.8-2.9); LYMPHOCYTES % 4.2 % (15.0-51.0); MEAN CORPUSCULAR HEMOGLOBIN 28.1 pg (29.0-33.0); MEAN CORPUSCULAR HGB CONC 33.1 g/dl (32.0-37.0); MEAN CORPUSCULAR VOLUME 84.7 fl (82.0-101.0); MEAN PLATELET VOLUME 11.5 fl (7.4-10.4); MONOCYTE # 0.7 10^3/ul (0.3-0.9); MONOCYTES % 6.7 % (0.0-11.0); NEUTROPHIL # 9.7 10^3/ul (1.6-7.5); NEUTROPHILS % 87.7 % (39.0-77.0); PLATELET COUNT 147 10^3/UL (140-415); POSITIVE DIFF @See below; RED BLOOD COUNT 3.67 10^6/ul (4.70-6.10); RED CELL DISTRIBUTION WIDTH 17.3 % (11.5-14.5)
[2017-05-24 04:31] LABS: ALBUMIN 4.3 g/dl (3.3-4.9); ALBUMIN/GLOBULIN RATIO 0.91; BILIRUBIN,INDIRECT 1.8 mg/dl (0-1.1); BILIRUBIN,TOTAL 1.8 mg/dl (0.2-1.3); CALCIUM 10.2 mg/dl (8.4-10.2); CREATININE 0.94 mg/dl (0.61-1.24); POTASSIUM 4.2 mmol/L (3.5-5.1)
[2017-05-24 04:42] LABS: TROPONIN-I 0.035 ng/ml (0.00-0.12)
[2017-05-24 04:51] LABS: PARTIAL THROMBOPLASTIN TIME 34.2 Sec (25.0-35.0)
[2017-05-24] MEDS ORDERED: LANT3I SC ×2 (05:09→05:35)
[2017-05-24 05:13] LABS: ADD UMIC YES; UR ASCORBIC ACID NEGATIVE (NEGATIVE); UR BILIRUBIN (Dip) NEGATIVE (NEGATIVE); UR BLOOD (Dip) 3+ mg/dL (NEGATIVE); UR CLARITY CLEAR (CLEAR); UR COLOR STRAW (YELLOW); UR GLUCOSE (Dip) NEGATIVE (NEGATIVE); UR KETONES (Dip) NEGATIVE (NEGATIVE); UR LEUKOCYTE ESTERASE (Dip) NEGATIVE Leu/ul (NEGATIVE); UR NITRITE (Dip) NEGATIVE (NEGATIVE); UR RBC 111 /HPF (0-5); UR SPECIFIC GRAVITY (Dip) 1.006 (1.003-1.030); UR TOTAL PROTEIN (Dip) NEGATIVE (NEGATIVE); UR UROBILINOGEN (Dip) NEGATIVE (NEGATIVE)
[2017-05-24] MEDS ORDERED: MAGN400T27 PO (05:35)
[2017-05-24] MEDS ORDERED: HYDR2TAB3 PO (05:35)
[2017-05-24] MEDS ORDERED: SPIR25TA PO (05:35)
--- NOTE | 2017-05-24 05:43 | RADRPT ---
PROCEDURE: CT Brain without contrast. CLINICAL INDICATION: Altered mental status TECHNIQUE: Axial images from the skull base through the vertex without IV contrast. Multiplanar r eformatted images were made. Images were reviewed on a PACS workstation. The CTDIvol is 43.05 mGy and the DLP is 720.23 mGycm. One or more of the following dose reduction techniques were used: auto mated exposure control, adjustment of the mA and/or kV according to patient size, or use of iterativ e reconstruction technique. COMPARISON: 08/23/2016 FINDINGS: Mild cortical atrophy without significant chronic microvascular ischemic change. Intracranial vascu lar calcification. There is no evidence for territorial infarction or intracranial hemorrhage. No mass or midline shift is seen. No extra-axial fluid collection is seen. The visualized paranasal sinuses and mastoids are clear. IMPRESSION: No definite acute intracranial abnormality. RPTAT: [facility] Physician Frandy Date Time Electronically viewed and signed by Jeanne Montelongo Physician on 05/24/2017 05:42 ERMIAS/
[2017-05-24 05:50] LABS: INR 1.51; PROTIME 18.4 Sec (12.2-14.2); PT RATIO 1.4
[2017-05-24] MEDS ORDERED: DIPH25CA6 PO (05:55)
[2017-05-24] MEDS ORDERED: MIDO5TAB19 PO (05:55)
[2017-05-24] MEDS ORDERED: LIDO1ADH TP (05:55)
[2017-05-24] MEDS ORDERED: FURO40TA4 PO (05:55)
[2017-05-24] MEDS ORDERED: DEXT15DR2 BOTH EYES (05:55)
[2017-05-24] MEDS ORDERED: ASPI-664 PO (05:55)
[2017-05-24] MEDS ORDERED: LACT10SO5 PO (05:55)
[2017-05-24] MEDS ORDERED: CYAN100T PO (05:55)
[2017-05-24] MEDS ORDERED: MELA1TAB10 PO (05:55)
[2017-05-24] MEDS ORDERED: CLOP75TA4 PO (05:55)
[2017-05-24] MEDS ORDERED: CALC667C PO (05:55)
[2017-05-24] MEDS ORDERED: CYAN500T46 PO (05:55)
[2017-05-24] MEDS ORDERED: POLY17PO3 PO (05:55)
[2017-05-24] MEDS ORDERED: ZINC220C5 PO (05:55)
[2017-05-24] MEDS ORDERED: INSU100I12 SQ (05:55)
[2017-05-24] MEDS ORDERED: EZET10TA3 PO (05:55)
[2017-05-24] MEDS ORDERED: RIFA550T4 PO (05:55)
[2017-05-24] MEDS ORDERED: FLUO120C4 TOP (05:55)
[2017-05-24] MEDS ORDERED: LACTULOSE 30ML CUP NGT ONE (06:00)
[2017-05-24] MEDS ORDERED: ACETAMINOPHEN 325 MG TAB PO PRN (06:00)
[2017-05-24] MEDS ORDERED: ONDANSETRON 4 MG INJ IV PRN (06:00)
--- NOTE | 2017-05-24 08:45 | RADRPT ---
PROCEDURE: ABDOMINAL RADIOGRAPH CLINICAL INDICATION: NG tube placement TECHNIQUE: AP abdomen x-ray. COMPARISON: None. FINDINGS: The NG tube tip is in the stomach. The bowel pattern is nonobstructive. TIPS device is noted in the right upper outer quadrant. IMPRESSION: NG tube tip in the stomach. RPTAT: [facility] .Valeriy Cespedes MD, MD Date Time Electronically viewed and signed by .Valeriy Cespedes MD, on 05/24/2017 08:45 .Z/
[2017-05-24] MEDS ORDERED: PHYTONADIONE 10 MG/ML INJ SC ONE (09:30)
[2017-05-24] MEDS ORDERED: SOD CHLORIDE 0.9% 250 ML IV* ONE ×2 (09:30→17:49)
[2017-05-24] MEDS: DEXTROSE 5%-0.45% NACL 1,000 ML IV SCH (10:26)
[2017-05-24] MEDS: LACTULOSE ENEMA 1,000 ML BTL PR SCH ×2 (10:45→21:45)
[2017-05-24] MEDS: PANTOPRAZOLE 40 MG INJ IV SCH ×2 (10:45→18:23)
[2017-05-24] MEDS: MULTIVITAMINS 10 ML, THIAMINE 100 MG, FOLIC ACID 1 MG in SOD CHLORIDE 0.9% 1,000 ML IVPB SCH (10:45)
[2017-05-24] MEDS ORDERED: LORAZEPAM 2 MG INJ IM PRN (11:00)
--- NOTE | 2017-05-24 12:55 | HP ---
Date/Time of Note Date/Time of Note DATE: 05/24/17 TIME: 12:45 Assessment/Plan VTE Prophylaxis VTE Prophylaxis Intervention: anti-embolic stocking Lines/Catheters IV Catheter Type (from Nrs): Peripheral IV Assessment/Plan Chief Complaint/Hosp Course 1. Liver cirrhosis 2. toxic Encephalopathy 3. Anemia 4. hs pancreatitis 5. Hx alcohol abuse 6. Hx esophageal varices 7. SIRS 8. S/p portal shunt 2016 9. S/p cardiac stenting 3 stents Problems: Assessment/Plan 1. ID consult 2. continue lactulose per rectum 3. H and H q 12 hours HPI/ROS Admit Date/Time Admit Date/Time May 24, 2017 at 05:42 Hx of Present Illness Pt is incomprehensible. Per Pt reported SOB on evening 05/23/2017 and she called 911. There were similar confusion in past. Pt has liver cirrhosis due to alcohol abuse ROS Subjective hx not possible: other (incompreh) PMH/Family/Social Past Medical History Medical History: coronary artery disease, diabetes, GI bleed, other (liver cirrhosis and pancreatitis) Past Surgical History Past Surgical Hx: coronary bypass surgery (2 stent 2016, esophageal varices binding 2014, Portal shunt 2016) Family History Significant Family History: no pertinent family hx Social History Alcohol Use: heavy (before) Smoking Status: Former smoker Drug Use: none Exam/Review of Systems Vital Signs Vitals Vital Signs Date Time Temp Pulse Resp B/P Pulse Ox O2 Delivery O2 Flow Rate FiO2 05/24/17 11:09 98.0 95 18 138/103 100 05/24/17 05:57 Room Air Exam Constitutional: other (confused) Head: atraumatic, normocephalic Eyes: icteric ENMT: nl external ears & nose Neck: supple Respiratory: diminished breath sounds Cardiovascular: regular rate and rhythm Gastrointestinal: other (ascitis), soft, surgical scars Musculoskeletal: muscle weakness Neurological: confused Skin: ecchymosis, laceration Lymph: enlarged Labs Result Diagram: 05/24/17 0351 05/24/17 0351 Medications Medications Current Medications Dextrose/Sodium Chloride (D5-1/2ns) 1,000 ml @ 50 mls/hr Q20H IV Last administered on 05/24/17t 10:26; Admin Dose 50 MLS/HR; Start 05/24/17 at 09:30 Pantoprazole 40 mg 40 mg BID@06,18 IV Last administered on 05/24/17 10:45; Admin Dose 40 MG; Start 05/24/17 at 10:30 Multivitamins/ Thiamine HCl/ Folic Acid/Sodium Chloride (Mvi Adult/ Vitamin B1/ Folic Acid/NS) 1,011.2 ml @ 125 mls/ hr DAILY@09 IVPB Last administered on 10:45; Admin Dose 125 MLS/HR; Start 05/24/17 at 11:00 Lactulose (Lactulose Enema) 100 ml BID TN Last administered on 05/24/17 10:45 ; Admin Dose 100 ML; Start 05/24/17 at 11:00 Lorazepam (Ativan) 1 mg Q6H PRN IV anxiety/agitation; Start 05/24/17 at 11:00 MALKA VU May 24, 2017 12:55
--- NOTE | 2017-05-24 14:56 | CONS ---
Date/Time of Note Date/Time of Note DATE: 05/24/17 TIME: 14:55 Consultation Date/Type/Reason Admit Date/Time May 24, 2017 at 05:42 Date of Consultation: May 24, 2017 Type of Consultation: ID Reason for Consultation Antibiotic management Past Medical History Medical History: coronary artery disease, diabetes, GI bleed, other (liver cirrhosis and pancreatitis) Past Surgical History Past Surgical Hx: coronary bypass surgery (2 stent 2016, esophageal varices binding 2014, Portal shunt 2016) Social History Alcohol Use: heavy (before) Smoking Status: Former smoker Drug Use: none Exam/Review of Systems Vital Signs Vitals Vital Signs Date Time Temp Pulse Resp B/P Pulse Ox O2 Delivery O2 Flow Rate FiO2 05/24/17 12:20 78 05/24/17 11:09 98.0 18 138/103 100 05/24/17 09:00 Nasal Cannula 2.0 Results Result Diagram: 05/24/17 0351 05/24/17 0351 Results 24 hrs Laboratory Tests Test 05/24/17 03:51 05/24/17 04:30 05/24/17 09:05 White Blood Count 11.0 #H Red Blood Count 3.67 L Hemoglobin 10.3 L Hematocrit 31.1 L Mean Corpuscular Volume 84.7 Mean Corpuscular Hemoglobin 28.1 L Mean Corpuscular Hemoglobin Concent 33.1 Red Cell Distribution Width 17.3 H Platelet Count 147 # Mean Platelet Volume 11.5 H Neutrophils % 87.7 H Lymphocytes % 4.2 L Monocytes % 6.7 Eosinophils % 0.6 Basophils % 0.4 Nucleated Red Blood Cells % 0.0 Neutrophils # 9.7 H Lymphocytes # 0.5 L Monocytes # 0.7 Eosinophils # 0.1 Basophils # 0.0 Nucleated Red Blood Cells # 0.0 Prothrombin Time 18.4 H Prothrombin Time Ratio 1.4 INR International Normalized Ratio 1.51 Activated Partial Thromboplast Time 34.2 Sodium Level 133 L Potassium Level 4.2 Chloride Level 95 L Carbon Dioxide Level 25 Anion Gap 17 H Blood Urea Nitrogen 18 Creatinine 0.94 Glucose Level 198 Calcium Level 10.2 Total Bilirubin 1.8 H Direct Bilirubin 0.00 Indirect Bilirubin 1.8 H Aspartate Amino Transf (AST/SGOT) 83 H Alanine Aminotransferase (ALT/SGPT) 111 H Alkaline Phosphatase 276 H Ammonia 60 H Troponin I 0.035 Total Protein 9.0 H Albumin 4.3 Globulin 4.70 H Albumin/Globulin Ratio 0.91 Lipase 26 Urine Color STRAW Urine Clarity CLEAR Urine pH 8.0 Urine Specific [place] 1.006 Urine Ketones NEGATIVE Urine Nitrite NEGATIVE Urine Bilirubin NEGATIVE Urine Urobilinogen NEGATIVE Urine Leukocyte Esterase NEGATIVE Urine Microscopic RBC 111 H Urine Microscopic WBC 3 Urine Calcium Oxalate Crystals MODERATE Urine Hemoglobin 3+ H Urine Glucose NEGATIVE Urine Total Protein NEGATIVE Bedside Glucose 221 H Medications Medications Current Medications Dextrose/Sodium Chloride (D5-1/2ns) 1,000 ml @ 50 mls/hr Q20H IV Last administered on 05/24/17 10:26; Admin Dose 50 MLS/HR; Start 05/24/17 at 09:30 Pantoprazole 40 mg 40 mg BID@06,18 IV Last administered on 05/24/17 10:45; Admin Dose 40 MG; Start 05/24/17 at 10:30 Multivitamins/ Thiamine HCl/ Folic Acid/Sodium Chloride (Mvi Adult/ Vitamin B1/ Folic Acid/NS) 1,011.2 ml @ 125 mls/ hr DAILY@09 IVPB Last administered on 10:45; Admin Dose 125 MLS/HR; Start 05/24/17 at 11:00 Lactulose (Lactulose Enema) 100 ml BID CA Last administered on 05/24/17 10:45 ; Admin Dose 100 ML; Start 05/24/17 at 11:00 Lorazepam (Ativan) 1 mg Q6H PRN IV anxiety/agitation; Start 05/24/17 at 11:00 YAO CASTELLON MD May 24, 2017 14:56
[2017-05-24] MEDS ORDERED: VANCOMYCIN IV PER PHARMACY XX SCH (15:00)
[2017-05-24] MEDS: LORAZEPAM 2 MG INJ IV PRN (15:51)
[2017-05-24 16:55] LABS: ABNORMAL IP MESSAGE 1; BASOPHILS % 0.2 % (0.0-2.0); HEMATOCRIT 35.2 % (42.0-52.0); HEMOGLOBIN 11.6 g/dl (14.0-18.0); LYMPHOCYTES # 0.5 10^3/ul (0.8-2.9); LYMPHOCYTES % 2.7 % (15.0-51.0); MEAN CORPUSCULAR HEMOGLOBIN 27.8 pg (29.0-33.0); MEAN CORPUSCULAR VOLUME 84.4 fl (82.0-101.0); MONOCYTES % 5.5 % (0.0-11.0); NEUTROPHIL # 16.6 10^3/ul (1.6-7.5); NEUTROPHILS % 91.1 % (39.0-77.0); PLATELET COUNT 154 10^3/UL (140-415); POSITIVE DIFF @See below; RED BLOOD COUNT 4.17 10^6/ul (4.70-6.10); RED CELL DISTRIBUTION WIDTH 17.4 % (11.5-14.5); WHITE BLOOD COUNT 18.2 10^3/ul (4.8-10.8)
[2017-05-24] MEDS ORDERED: VANCOMYCIN 1.25 GM in SOD CHLORIDE 0.9% 250 ML IVPB SCH (17:00)
--- NOTE | 2017-05-24 17:12 | EN ---
Date/Time of Note Date/Time of Note DATE: 05/24/17 TIME: 17:07 Event Note Medicine Medicine Event Note Rapid response note (entry delayed 2/2 patient care) Rapid response called overhead ~4pm. I presented to patient's bedside. RR called because RN noted pt with bright red blood coming from mouth, source unclear. Pt not vomiting. Vitals HR 110s SBP 160s SO2 90s exam agitated gentleman who appears older than stated age sitting up in bed, pushing away suction tubing from mouth, +,small amount of bright red blood in mouth and on roof of mouth. no visible tongue bite garcia/lacerations ng tube taped to side of face, not attached to suction resp non labored +scattered ecchymoses on upper exts labs: stat hgb 11s 56 yo M with cirrhosis admitted for AMS, RR called for bright red blood coming from patient's mouth. Given no hematemesis and HD stability, unlikely to be variceal in origin. Consider epistaxis, possibly related to irritation from NG tube placement I advised that RN call primary for further guidance. As pt without current evidence of hemodynamic compromise, no compelling indication to transfer to higher level of care (ie ICU) at this time. Pt's family also at the bedside at time of my evaluation Copies To: CC: JERZY BENSON MD, ELLEN MD May 24, 2017 17:12
--- NOTE | 2017-05-24 17:54 | CONS ---
Date/Time of Note Date/Time of Note DATE: 05/24/17 TIME: 17:42 Assessment/Plan Assessment/Plan Chief Complaint/Hosp Course Impression: 1. end stage liver disease 2. mouth bleeding not GI bleeding: NG flushed clear, there is still red blood from mouth. This indicate that bleeding not from Stomach but from mouth 3. hepatic encephalopathy Recommendation: 1. ENT consult for mouth bleeding 2. lactulose enema 3. transfuse to keep hgb > 8, PLT > 50, INR less than 1.5 4. NG tube is not necessary from GI perspective so can dc if primary or other information services consultant don't need it. 5. protonix 40 mg iv bid Problems: Consultation Date/Type/Reason Admit Date/Time May 24, 2017 at 05:42 Date of Consultation: May 24, 2017 Type of Consultation: GI Reason for Consultation bleeding from mouth, management of liver failure Hx of Present Illness Patient non-verbal, history obtained from talking to son, nurse, and chart review. This 56-year-old male is brought in by ambulance after family called 911 because the patient is more altered than usual. He does have a history of liver failure and has had hepatic encephalopathy in the past. Patient himself is unable to answer questions appropriately. Family reports no fevers or trauma. Patient was not having oral bleeding but when NG tube was placed in ER. Apparently since the NG tube placement, patient bleeding from the mouth. Then family told me ER removed the denture. Subjective hx not possible: pt non-verbal Past Medical History Medical History: coronary artery disease, diabetes, GI bleed, other (liver cirrhosis and pancreatitis) Past Surgical History Past Surgical Hx: coronary bypass surgery (2 stent 2016, esophageal varices binding 2014, Portal shunt 2016) Family History Significant Family History: no pertinent family hx Social History Alcohol Use: none (before) Smoking Status: Former smoker Drug Use: none Exam/Review of Systems Vital Signs Vitals Vital Signs Date Time Temp Pulse Resp B/P Pulse Ox O2 Delivery O2 Flow Rate FiO2 05/24/17 16:20 95 05/24/17 15:19 97.4 20 146/83 98 05/24/17 09:00 Nasal Cannula 2.0 Exam Constitutional: alert, frail, non-verbal Head: atraumatic, normocephalic Eyes: EOMI, nl lids ENMT: mucosa pink and moist, nl external ears & nose, nl lips & teeth, nl nasal mucosa & septum, other (I examined the mouth and look in with light. He has lesion on his tongue on the left and there is also soft clot on the left cheek. I flushed the NG and its initially has coffee ground but cleared yet mouth still bleeding.) Neck: non-tender, supple Respiratory: clear to auscultation, normal air movement Cardiovascular: nl pulses, regular rate and rhythm Gastrointestinal: bowel sounds, non-tender, other (I flushed the NG tube, it was coffee ground but cleared after 200 cc of water. However there is still fresh blood in the mouth. ), soft Musculoskeletal: nl extremities to inspection, nl gait and stance Neurological: nl mental status, nl speech, nl strength Skin: nl turgor, rash or lesions Results Result Diagram: 05/24/17 1609 05/24/17 0351 Results 24 hrs Laboratory Tests Test 05/24/17 03:51 05/24/17 04:30 05/24/17 09:05 05/24/17 16:09 White Blood Count 11.0 #H 18.2 #H Red Blood Count 3.67 L 4.17 L Hemoglobin 10.3 L 11.6 L Hematocrit 31.1 L 35.2 L Mean Corpuscular Volume 84.7 84.4 Mean Corpuscular Hemoglobin 28.1 L 27.8 L Mean Corpuscular Hemoglobin Concent 33.1 33.0 Red Cell Distribution Width 17.3 H 17.4 H Platelet Count 147 # 154 Mean Platelet Volume 11.5 H 11.0 H Neutrophils % 87.7 H 91.1 H Lymphocytes % 4.2 L 2.7 L Monocytes % 6.7 5.5 Eosinophils % 0.6 0.0 Basophils % 0.4 0.2 Nucleated Red Blood Cells % 0.0 0.0 Neutrophils # 9.7 H 16.6 H Lymphocytes # 0.5 L 0.5 L Monocytes # 0.7 1.0 H Eosinophils # 0.1 0.0 Basophils # 0.0 0.0 Nucleated Red Blood Cells # 0.0 0.0 Prothrombin Time 18.4 H Prothrombin Time Ratio 1.4 INR International Normalized Ratio 1.51 Activated Partial Thromboplast Time 34.2 Sodium Level 133 L Potassium Level 4.2 Chloride Level 95 L Carbon Dioxide Level 25 Anion Gap 17 H Blood Urea Nitrogen 18 Creatinine 0.94 Glucose Level 198 Calcium Level 10.2 Total Bilirubin 1.8 H Direct Bilirubin 0.00 Indirect Bilirubin 1.8 H Aspartate Amino Transf (AST/SGOT) 83 H Alanine Aminotransferase (ALT/SGPT) 111 H Alkaline Phosphatase 276 H Ammonia 60 H Troponin I 0.035 Total Protein 9.0 H Albumin 4.3 Globulin 4.70 H Albumin/Globulin Ratio 0.91 Lipase 26 Urine Color STRAW Urine Clarity CLEAR Urine pH 8.0 Urine Specific [place] 1.006 Urine Ketones NEGATIVE Urine Nitrite NEGATIVE Urine Bilirubin NEGATIVE Urine Urobilinogen NEGATIVE Urine Leukocyte Esterase NEGATIVE Urine Microscopic RBC 111 H Urine Microscopic WBC 3 Urine Calcium Oxalate Crystals MODERATE Urine Hemoglobin 3+ H Urine Glucose NEGATIVE Urine Total Protein NEGATIVE Bedside Glucose 221 H Medications Medications Current Medications Dextrose/Sodium Chloride (D5-1/2ns) 1,000 ml @ 50 mls/hr Q20H IV Last administered on 05/24/17 10:26; Admin Dose 50 MLS/HR; Start 05/24/17 at 09:30 Pantoprazole 40 mg 40 mg BID@06,18 IV Last administered on 05/24/17 10:45; Admin Dose 40 MG; Start 05/24/17 at 10:30 Multivitamins/ Thiamine HCl/ Folic Acid/Sodium Chloride (Mvi Adult/ Vitamin B1/ Folic Acid/NS) 1,011.2 ml @ 125 mls/ hr DAILY@09 IVPB Last administered on 10:45; Admin Dose 125 MLS/HR; Start 05/24/17 at 11:00 Lactulose (Lactulose Enema) 100 ml BID [place] Last administered on 05/24/17 10:45 ; Admin Dose 100 ML; Start 05/24/17 at 11:00 Lorazepam 1 mg 1 mg Q6H PRN IV anxiety/agitation Last administered on 15:51; Admin Dose 1 MG; Start 05/24/17 at 11:00 Cefepime HCl 50 ml @ 100 mls/hr Q12 IVPB ; Start 05/24/17 at 21:00 Vancomycin HCl 1.25 gm/Sodium Chloride 250 ml @ 83.333 mls/ hr ONCE IVPB ; Start 05/24/17 at 17:00; Stop 05/24/17 at 23:33 Vancomycin HCl (Vancocin) 100 ml @ 100 mls/hr Q12H IVPB ; Start 05/25/17 at 06: 00 DUONG NOEL MD May 24, 2017 17:54
--- NOTE | 2017-05-24 19:57 | CONS ---
DATE OF ADMISSION: 05/24/2017 DATE OF CONSULTATION: 05/24/2017 REASON FOR CONSULTATION: Antibiotic management. HISTORY OF PRESENT ILLNESS: The patient is a 56-year-old male, who was brought in by ambulance with confusion and altered mental status. The patient has a history of liver failure and has had hepatic encephalopathy in the past. PAST MEDICAL HISTORY: 1. Coronary artery disease with stent placement. 2. Cirrhosis of liver. 3. Diabetes mellitus. 4. Regular paracenteses for ascites. 5. Operations as outlined. On admission, patient's white count was 11,000, H and H of 10.3 and 31.1, platelet count 247,000. BUN and creatinine 18/0.94, glucose 198. PAST SURGICAL HISTORY: Status post portal shunt in 2017 and cardiac stenting with 3 stents. He has a history of esophageal varices. He has history of GI bleed. Had binding of esophageal varices in 2014. FAMILY HISTORY: Noncontributory. SOCIAL HISTORY: He was a heavy drinker. He does not drink anymore. He was a former smoker. He does not abuse drugs. PHYSICAL EXAMINATION: GENERAL: Patient is confused. SKIN: Skin with ecchymoses. HEENT: Within normal limits. NECK: Supple. Lymph nodes nonpalpable. CHEST: Decreased breath sounds at the bases. HEART: Without murmur or gallop. ABDOMEN: Soft. There are surgical scars present. There is also ascites. There is no organosplenomegaly or masses. EXTREMITIES: Without cyanosis, clubbing, or edema. RECTAL: Deferred. NEUROLOGICAL: No focal neurological abnormalities. The patient is markedly confused. LABORATORY: White count 11,000, H and H 10.3 and 31.1, platelet count 147,000. BUN and creatinine 18/0.94, that was not mentioned previously. Abdominal was done, which shows an NG tube with a tip in the stomach. HIPS device is noted in the right upper outer quadrant. CT of the brain, no definite acute intracranial abnormality. Wound care has been ordered. Urine is negative for nitrites and leukocyte esterase. PLAN: We will get 2 sets of blood cultures on him and observe. I may want to treat him for possibility of spontaneous bacterial peritonitis. I will dictate my findings to Dr. Santana. Dictated By: Darell Ochoa MD JD/darren/genesis /Document#: [id number]
[2017-05-24] MEDS: CEFEPIME 1GM/50 ML (PMX) 50 ML IVPB SCH (21:19)
[2017-05-25] VITALS (17 sets, daily range): BP systolic 85–120; BP diastolic 46–72; PULSE 72–100; RESP 17–22
[2017-05-25] MEDS ORDERED: SOD CHLORIDE 0.9% 250 ML IV ONE
[2017-05-25] MEDS: INSULIN ASPART [NOVOLOG] 3 ML PEN SC SCH ×4 (00:37→18:30)
[2017-05-25] MEDS ORDERED: ACCU-CHEK XX SCH (02:00)
[2017-05-25] MEDS: DEXTROSE 5%-0.45% NACL 1,000 ML IV SCH (05:06)
[2017-05-25] MEDS: PANTOPRAZOLE 40 MG INJ IV SCH ×2 (05:07→18:13)
[2017-05-25] MEDS ORDERED: VANCOMYCIN 500MG/NS (PMX) 100 ML IVPB SCH (06:00)
[2017-05-25 07:07] LABS: ABNORMAL IP MESSAGE 1; BASOPHILS % 0.2 % (0.0-2.0); EOSINOPHILS % 0.1 % (0.0-7.0); HEMATOCRIT 27.7 % (42.0-52.0); HEMOGLOBIN 9.1 g/dl (14.0-18.0); LYMPHOCYTES # 0.3 10^3/ul (0.8-2.9); LYMPHOCYTES % 2.9 % (15.0-51.0); MEAN CORPUSCULAR HEMOGLOBIN 26.9 pg (29.0-33.0); MEAN CORPUSCULAR HGB CONC 32.9 g/dl (32.0-37.0); MEAN PLATELET VOLUME 11.6 fl (7.4-10.4); MONOCYTE # 0.9 10^3/ul (0.3-0.9); NEUTROPHIL # 10.1 10^3/ul (1.6-7.5); NEUTROPHILS % 88.3 % (39.0-77.0); PLATELET COUNT 99 10^3/UL (140-415); POSITIVE DIFF @See below; RED BLOOD COUNT 3.38 10^6/ul (4.70-6.10); RED CELL DISTRIBUTION WIDTH 17.1 % (11.5-14.5); WHITE BLOOD COUNT 11.4 10^3/ul (4.8-10.8)
[2017-05-25 07:43] LABS: CALCIUM 9.3 mg/dl (8.4-10.2); CREATININE 0.61 mg/dl (0.61-1.24); POTASSIUM 3.2 mmol/L (3.5-5.1)
[2017-05-25] MEDS: CEFEPIME 1GM/50 ML (PMX) 50 ML IVPB SCH ×2 (08:30→20:50)
[2017-05-25] MEDS: MULTIVITAMINS 10 ML, THIAMINE 100 MG, FOLIC ACID 1 MG in SOD CHLORIDE 0.9% 1,000 ML IVPB SCH (08:31)
[2017-05-25] MEDS: LACTULOSE ENEMA 1,000 ML BTL PR SCH ×2 (09:58→20:50)
[2017-05-25] MEDS: LORAZEPAM 2 MG INJ IV PRN ×2 (12:04→18:31)
[2017-05-25] MEDS ORDERED: ALBUMIN HUMAN 25% 100 ML IV ONE (13:00)
[2017-05-25] MEDS ORDERED: POTASSIUM CHLORIDE 30 MEQ in DEXTROSE 5% 250 ML IVPB ONE (14:00)
--- NOTE | 2017-05-25 15:31 | CONS ---
Date/Time of Note Date/Time of Note DATE: 05/25/17 TIME: 15:29 Assessment/Plan Assessment/Plan Chief Complaint/Hosp Course Impression: 1. end stage liver disease 2. mouth bleeding not GI bleeding: NG flushed clear, there is still red blood from mouth. This indicate that bleeding not from Stomach but from mouth 3. hepatic encephalopathy Recommendation: 1. consider dentist or ENT consult for mouth bleeding 2. lactulose enema 3. transfuse to keep hgb > 8, PLT > 50, INR less than 1.5 4. NG tube is not necessary from GI perspective so can dc if primary or other access consultant don't need it. 5. protonix 40 mg iv bid 6. Dr. Jimenes to resume care tomorrow Problems: Consultation Date/Type/Reason Admit Date/Time May 24, 2017 at 05:42 Initial Consult Date 05/24/17 Type of Consultation: GI 24 HR Interval Summary Free Text/Dictation mouth bleeding improved, no n/v, no hematemesis Constitutional: improved Exam/Review of Systems Vital Signs Vitals Vital Signs Date Time Temp Pulse Resp B/P Pulse Ox O2 Delivery O2 Flow Rate FiO2 05/25/17 14:42 97 18 109/71 05/25/17 12:02 98.0 94 05/25/17 08:20 Nasal Cannula 2.0 Intake and Output 05/24/17 05/24/17 05/25/17 15:00 23:00 07:00 Intake Total 1311.2 ml 1065 ml Output Total 300 ml Balance 1011.2 ml 1065 ml Exam Constitutional: frail Psych: nl mood/affect, no complaints Head: atraumatic, normocephalic Eyes: EOMI, nl conjunctiva, nl lids ENMT: nl external ears & nose, nl lips & teeth, nl nasal mucosa & septum, other (dried blood in lips) Neck: non-tender, supple Respiratory: clear to auscultation, normal air movement Cardiovascular: nl pulses, regular rate and rhythm Gastrointestinal: bowel sounds, non-tender, soft Results Result Diagram: 05/25/17 0618 05/25/17 0618 Results 24 hrs Laboratory Tests Test 05/24/17 16:09 05/24/17 22:03 05/25/17 00:25 05/25/17 05:21 White Blood Count 18.2 #H Red Blood Count 4.17 L Hemoglobin 11.6 L Hematocrit 35.2 L Mean Corpuscular Volume 84.4 Mean Corpuscular Hemoglobin 27.8 L Mean Corpuscular Hemoglobin Concent 33.0 Red Cell Distribution Width 17.4 H Platelet Count 154 Mean Platelet Volume 11.0 H Neutrophils % 91.1 H Lymphocytes % 2.7 L Monocytes % 5.5 Eosinophils % 0.0 Basophils % 0.2 Nucleated Red Blood Cells % 0.0 Neutrophils # 16.6 H Lymphocytes # 0.5 L Monocytes # 1.0 H Eosinophils # 0.0 Basophils # 0.0 Nucleated Red Blood Cells # 0.0 Ammonia 49 H Bedside Glucose 262 H 271 H 264 H Test 05/25/17 06:18 05/25/17 06:22 05/25/17 12:07 White Blood Count 11.4 #H Red Blood Count 3.38 L Hemoglobin 9.1 #L Hematocrit 27.7 #L Mean Corpuscular Volume 82.0 Mean Corpuscular Hemoglobin 26.9 L Mean Corpuscular Hemoglobin Concent 32.9 Red Cell Distribution Width 17.1 H Platelet Count 99 #L Mean Platelet Volume 11.6 H Neutrophils % 88.3 H Lymphocytes % 2.9 L Monocytes % 8.0 Eosinophils % 0.1 Basophils % 0.2 Nucleated Red Blood Cells % 0.0 Neutrophils # 10.1 H Lymphocytes # 0.3 L Monocytes # 0.9 Eosinophils # 0.0 Basophils # 0.0 Nucleated Red Blood Cells # 0.0 Sodium Level 134 L Potassium Level 3.2 L Chloride Level 97 Carbon Dioxide Level 21 Anion Gap 19 H Blood Urea Nitrogen 16 Creatinine 0.61 Glucose Level 241 H Calcium Level 9.3 Lab Scanned Report BLOOD TRANSFUSION Bedside Glucose 216 Medications Medications Current Medications Dextrose/Sodium Chloride (D5-1/2ns) 1,000 ml @ 50 mls/hr Q20H IV Last administered on 05/24/17 10:26; Admin Dose 50 MLS/HR; Start 05/24/17 at 09:30 Pantoprazole 40 mg 40 mg BID@06,18 IV Last administered on 05/25/17 05:07; Admin Dose 40 MG; Start 05/24/17 at 10:30 Multivitamins/ Thiamine HCl/ Folic Acid/Sodium Chloride (Mvi Adult/ Vitamin B1/ Folic Acid/NS) 1,011.2 ml @ 125 mls/ hr DAILY@09 IVPB Last administered on 08:31; Admin Dose 125 MLS/HR; Start 05/24/17 at 11:00 Lactulose (Lactulose Enema) 100 ml BID SC Last administered on 05/25/17 09:58 ; Admin Dose 100 ML; Start 05/24/17 at 11:00 Lorazepam 1 mg 1 mg Q6H PRN IV anxiety/agitation Last administered on 12:04; Admin Dose 1 MG; Start 05/24/17 at 11:00 Cefepime HCl (Maxipime 1gm/50 ml (Pmx)) 50 ml @ 100 mls/hr Q12 IVPB Last administered on 05/25/17 08:30; Admin Dose 100 MLS/HR; Start 05/24/17 at 21:00 Insulin Aspart NOVOLOG *MILD* ALGORI... Q6 SC Last administered on 05/25/17 12 :10; Admin Dose 2 UNIT; Start 05/25/17 at 00:00 Vancomycin HCl 750 mg/Sodium Chloride 150 ml @ 75 mls/hr Q12H IVPB ; Start at 18:00 Potassium Chloride/Dextrose (KCl/D5W) 265 ml @ 88.333 mls/ hr ONCE ONCE IVPB Last administered on 05/25/17 14:43; Admin Dose 88.333 MLS/HR; Start 05/25/17 at 14:00; Stop 05/25/17 at 16:59 DUONG NOEL MD May 25, 2017 15:30
[2017-05-25] MEDS ORDERED: VITAMIN A & D 5 GM OINT PACKET TOP ONE (15:56)
--- NOTE | 2017-05-25 16:52 | PN ---
Date/Time of Note Date/Time of Note DATE: 05/25/17 TIME: 16:51 Assessment/Plan VTE Prophylaxis VTE Prophylaxis Intervention: other Lines/Catheters IV Catheter Type (from Nrs): Peripheral IV Urinary Cath still in place: No (none) Assessment/Plan Chief Complaint/Hosp Course AMS CIRRHOSIS ANEMIA SIRS PLAN HD Problems: Subjective 24 Hr Interval Summary Subjective hx not possible: other (NO NOSE BLEED) Exam/Review of Systems Vital Signs Vitals Vital Signs Date Time Temp Pulse Resp B/P Pulse Ox O2 Delivery O2 Flow Rate FiO2 05/25/17 16:12 86 05/25/17 15:53 99.6 20 106/70 100 05/25/17 08:20 Nasal Cannula 2.0 Intake and Output 05/24/17 05/24/17 05/25/17 15:00 23:00 07:00 Intake Total 1311.2 ml 1065 ml Output Total 300 ml Balance 1011.2 ml 1065 ml Exam Neck: supple Respiratory: clear to auscultation Cardiovascular: regular rate and rhythm Gastrointestinal: soft Musculoskeletal: nl extremities to inspection Results Result Diagram: 05/25/17 0618 05/25/17 0618 Results 24 hrs Laboratory Tests Test 05/24/17 22:03 05/25/17 00:25 05/25/17 05:21 05/25/17 06:18 Bedside Glucose 262 H 271 H 264 H White Blood Count 11.4 #H Red Blood Count 3.38 L Hemoglobin 9.1 #L Hematocrit 27.7 #L Mean Corpuscular Volume 82.0 Mean Corpuscular Hemoglobin 26.9 L Mean Corpuscular Hemoglobin Concent 32.9 Red Cell Distribution Width 17.1 H Platelet Count 99 #L Mean Platelet Volume 11.6 H Neutrophils % 88.3 H Lymphocytes % 2.9 L Monocytes % 8.0 Eosinophils % 0.1 Basophils % 0.2 Nucleated Red Blood Cells % 0.0 Neutrophils # 10.1 H Lymphocytes # 0.3 L Monocytes # 0.9 Eosinophils # 0.0 Basophils # 0.0 Nucleated Red Blood Cells # 0.0 Sodium Level 134 L Potassium Level 3.2 L Chloride Level 97 Carbon Dioxide Level 21 Anion Gap 19 H Blood Urea Nitrogen 16 Creatinine 0.61 Glucose Level 241 H Calcium Level 9.3 Test 05/25/17 06:22 05/25/17 12:07 Lab Scanned Report BLOOD TRANSFUSION Bedside Glucose 216 Medications Medications Current Medications Dextrose/Sodium Chloride (D5-1/2ns) 1,000 ml @ 50 mls/hr Q20H IV Last administered on 05/24/17 10:26; Admin Dose 50 MLS/HR; Start 05/24/17 at 09:30 Pantoprazole 40 mg 40 mg BID@06,18 IV Last administered on 05/25/17 05:07; Admin Dose 40 MG; Start 05/24/17 at 10:30 Multivitamins/ Thiamine HCl/ Folic Acid/Sodium Chloride (Mvi Adult/ Vitamin B1/ Folic Acid/NS) 1,011.2 ml @ 125 mls/ hr DAILY@09 IVPB Last administered on 08:31; Admin Dose 125 MLS/HR; Start 05/24/17 at 11:00 Lactulose (Lactulose Enema) 100 ml BID [place] Last administered on 05/25/17 09:58 ; Admin Dose 100 ML; Start 05/24/17 at 11:00 Lorazepam 1 mg 1 mg Q6H PRN IV anxiety/agitation Last administered on 12:04; Admin Dose 1 MG; Start 05/24/17 at 11:00 Cefepime HCl (Maxipime 1gm/50 ml (Pmx)) 50 ml @ 100 mls/hr Q12 IVPB Last administered on 05/25/17 08:30; Admin Dose 100 MLS/HR; Start 05/24/17 at 21:00 Insulin Aspart NOVOLOG *MILD* ALGORI... Q6 SC Last administered on 05/25/17 12 :10; Admin Dose 2 UNIT; Start 05/25/17 at 00:00 Vancomycin HCl 750 mg/Sodium Chloride 150 ml @ 75 mls/hr Q12H IVPB ; Start at 18:00 Potassium Chloride/Dextrose (KCl/D5W) 265 ml @ 88.333 mls/ hr ONCE ONCE IVPB Last administered on 05/25/17 14:43; Admin Dose 88.333 MLS/HR; Start 05/25/17 at 14:00; Stop 05/25/17 at 16:59 JERZY BENSON MD May 25, 2017 16:52
[2017-05-25] MEDS: VANCOMYCIN 750 MG in SOD CHLORIDE 0.9% 150 ML IVPB SCH (18:21)
[2017-05-25 19:36] LABS: MAGNESIUM 1.8 mg/dl (1.7-2.5)
--- NOTE | 2017-05-25 19:57 | PN ---
DATE: 05/25/2017 SUBJECTIVE: No events overnight. The patient was given Ativan for restlessness. Currently sleeping. Family at bedside. T max 99.6, pulse 86, respirations 20, blood pressure 106/70, saturation 100 on nasal cannula. LABORATORY: WBC 11.4, H and H 9.1 and 27.7, platelets 99, neutrophils 88.3, BUN 16, creatinine 0.61. Blood culture on admission grew gram-positive cocci and p.r.n. clusters. ANTIMICROBIALS: The patient was started on vancomycin and cefepime yesterday. PHYSICAL EXAMINATION: GENERAL: A well-developed, middle aged man who is sleeping in no distress. HEENT: Head is atraumatic and normocephalic. Sclerae are anicteric. Buccal mucosa is dry. NECK: Supple. LUNGS: Chest rise is symmetrical. Breath sounds are diminished at the bases. HEART: S1, S2. ABDOMEN: Soft. Bowel sounds are present. EXTREMITIES: No cyanosis. ASSESSMENT: Sepsis with acute encephalopathy. Gram-positive cocci bacteremia. Etiology unclear. Rule out spontaneous bacterial peritonitis. Possible pneumonia. Cirrhosis, status post transjugular intrahepatic portosystemic shunt (TIPS) procedure. Diabetes. Coronary artery disease. History of cardiac stents. Thrombocytopenia. PLAN: Continue present care and antibiotics. Order chest x-ray and abdominal ultrasound to evaluate for presence of ascites. Check 2D echo. Repeat blood cultures. Continue anti aspiration measures. I have also discussed with staff and family at bedside. Dictated By: Iam Dobbs NP /darren/gely /Document#: [id number]
[2017-05-26] VITALS (13 sets, daily range): BP systolic 80–110; BP diastolic 51–79; PULSE 83–100; RESP 17–22
[2017-05-26] MEDS: INSULIN ASPART [NOVOLOG] 3 ML PEN SC SCH ×5 (00:44→23:32)
[2017-05-26] MEDS ORDERED: GLUCAGON 1 MG INJ IM PRN (01:00)
[2017-05-26] MEDS ORDERED: DEXTROSE 50% 50 ML SYRINGE IV PRN ×2 (01:00)
[2017-05-26] MEDS ORDERED: GLUCOSE GEL 15 GRAM TUBE PO PRN ×2 (01:00)
[2017-05-26] MEDS ORDERED: GLUCOSE GEL 15 GRAM TUBE BUCCAL PRN (01:00)
--- NOTE | 2017-05-26 01:26 | RADRPT ---
PROCEDURE: US Abdomen - ascites survey. CLINICAL INDICATION: Distension. Rule out ascites. TECHNIQUE: Real-time ultrasound survey of the abdomen was performed. COMPARISON: 04/12/2017 FINDINGS: No free fluid is identified. IMPRESSION: Limited ultrasound survey without evidence for free fluid. RPTAT: HMVK .Valeriy Harper MD, Date Time Electronically viewed and signed by .Valeriy Harper MD, on 05/26/2017 01:25 .K/
[2017-05-26] MEDS: PANTOPRAZOLE 40 MG INJ IV SCH ×2 (06:37→17:21)
[2017-05-26] MEDS: VANCOMYCIN 750 MG in SOD CHLORIDE 0.9% 150 ML IVPB SCH ×2 (06:37→17:21)
[2017-05-26] MEDS: DEXTROSE 5%-0.45% NACL 1,000 ML IV SCH ×2 (06:38→20:54)
[2017-05-26 07:37] LABS: ABNORMAL IP MESSAGE 1; BASOPHILS % 0.3 % (0.0-2.0); EOSINOPHILS # 0.1 10^3/ul (0.0-0.5); EOSINOPHILS % 1.1 % (0.0-7.0); HEMATOCRIT 27.8 % (42.0-52.0); HEMOGLOBIN 9.1 g/dl (14.0-18.0); LYMPHOCYTES # 0.5 10^3/ul (0.8-2.9); LYMPHOCYTES % 6.2 % (15.0-51.0); MEAN CORPUSCULAR HEMOGLOBIN 27.7 pg (29.0-33.0); MEAN CORPUSCULAR HGB CONC 32.7 g/dl (32.0-37.0); MEAN CORPUSCULAR VOLUME 84.5 fl (82.0-101.0); MEAN PLATELET VOLUME 12.2 fl (7.4-10.4); MONOCYTE # 1.1 10^3/ul (0.3-0.9); MONOCYTES % 15.2 % (0.0-11.0); NEUTROPHIL # 5.7 10^3/ul (1.6-7.5); NEUTROPHILS % 76.8 % (39.0-77.0); PLATELET COUNT 84 10^3/UL (140-415); POSITIVE DIFF @See below; RED BLOOD COUNT 3.29 10^6/ul (4.70-6.10); RED CELL DISTRIBUTION WIDTH 17.3 % (11.5-14.5); WHITE BLOOD COUNT 7.4 10^3/ul (4.8-10.8)
[2017-05-26 08:03] LABS: ALBUMIN 3.4 g/dl (3.3-4.9); ALBUMIN/GLOBULIN RATIO 0.85; BILIRUBIN,INDIRECT 1.7 mg/dl (0-1.1); BILIRUBIN,TOTAL 1.7 mg/dl (0.2-1.3); CALCIUM 9.2 mg/dl (8.4-10.2); CREATININE 0.55 mg/dl (0.61-1.24); POTASSIUM 3.4 mmol/L (3.5-5.1); TOTAL PROTEIN 7.4 g/dl (6.1-8.1)
[2017-05-26] MEDS: MULTIVITAMINS 10 ML, THIAMINE 100 MG, FOLIC ACID 1 MG in SOD CHLORIDE 0.9% 1,000 ML IVPB SCH (08:57)
[2017-05-26] MEDS: CEFEPIME 1GM/50 ML (PMX) 50 ML IVPB SCH ×2 (09:06→20:54)
[2017-05-26] MEDS: LACTULOSE ENEMA 1,000 ML BTL PR SCH ×2 (13:54→20:54)
[2017-05-26] MEDS: morphine 2 MG INJ IV PRN ×3 (13:54→23:13)
--- NOTE | 2017-05-26 14:24 | RADRPT ---
PROCEDURE: XR Chest. CLINICAL INDICATION: Dyspnea TECHNIQUE: Single frontal chest x-ray. COMPARISON: Chest x-ray 02/06/2017 FINDINGS: The lungs are clear. No focal opacification is seen. The cardiomediastinal silhouette is unremarka ble. Aortic atherosclerotic vascular calcifications are identified. The osseous structures are unrem arkable. IMPRESSION: 1. There is no acute cardiopulmonary process. 2. Vascular calcifications consistent with atherosclerosis. 3. Stable appearances over time. RPTAT: PP .King Huffman MD, MD Date Time Electronically viewed and signed by .King Huffman MD, on 05/26/2017 14:24 .B/
--- NOTE | 2017-05-26 15:45 | RADRPT ---
Echocardiogram Report Patient Name: KIA TREJO Gender: Male Date: 1960 Study Date: 26-May-2017 Delivery Motorcycle Driver: Ronny Sanz [facility] Location: [id number] Ref. Physician: YOLANDA BANKS Quality: Technically Difficult Study Procedures: Transthoracic echocardiogram with complete 2D, M-Mode, and doppler examination. Indications: r/o vegetation. 2D/M Mode Doppler Measurement Value Normal Ranges Measurement Value Normal Ranges LVIDd 2D 4.4 3.5 - 5.6 cm AV Peak Karel 1.1 m/sec LVIDs 2D 3.0 2.1 - 4.1 cm AV Peak PG 5.0 mmHg LVPWd 2D 1.0 0.6 - 1.1 cm LVOT Peak Karel 1.1 m/sec IVSd 2D 1.0 0.6 - 1.1 cm LVOT Peak PG 5.1 mmHg AoR Diam 2D 2.7 2.0 - 3.7 cm MV E Peak Karel 0.7 m/sec EDV 2D 86.0 cm3 MV A Peak Karel 0.8 m/sec ESV 2D 28.0 cm3 MV E/A 0.8 LA Dimen 2D 3.2 2.3 - 4.0 cm MV Decel Time 111 msec MV Decel Mower 6 MV E/A 0.8 Findings Left Ventricle: Normal left ventricular systolic function. Normal left ventricular cavity size. Normal left ventricular wall thickness. Ejection fraction is visually estimated at 55 %. Tissue Doppler/Mitral Doppler indices are consistent with impaired relaxation (Stage I diastolic dysfunction). Right Ventricle: Normal right ventricular size. Normal right ventricular systolic function. Left Atrium: The left atrium is normal in size. Right Atrium: The right atrium is normal in size. Mitral Valve: Normal appearance and function of the mitral valve with trace physiologic regurgitation. Aortic Valve: Normal appearance of the aortic valve. No significant aortic stenosis or insufficiency. Tricuspid Valve: Normal appearance and function of the tricuspid valve with trace physiologic regurgitation. Normal right ventricular systolic pressure. Pulmonic Valve: Normal pulmonic valve appearance. Pericardium: Normal pericardium with no significant pericardial effusion. Aorta: Normal aortic root. IVC: Normal size and normal respiratory collapse consistent with normal right atrial pressure. Conclusions 1.Normal left ventricular systolic function. Normal left ventricular cavity size. Normal left ventricular wall thickness. Ejection fraction is visually estimated at 55 %. Tissue Doppler/Mitral Doppler indices are consistent with impaired relaxation (Stage I diastolic dysfunction). 2.Normal appearance and function of the mitral valve with trace physiologic regurgitation. 3.Normal appearance and function of the tricuspid valve with trace physiologic regurgitation. Normal right ventricular systolic pressure. Electronically Signed By: King Campos 26-May-2017 15:44:20 -0700 Patient Name: KIA TREJO Study Date: 26-May-2017 [id number]
--- NOTE | 2017-05-26 15:55 | CONS ---
Date/Time of Note Date/Time of Note DATE: 05/26/17 TIME: 15:54 Assessment/Plan Assessment/Plan Additional Assessment/Plan Impression: 1. end stage liver disease 2. mouth bleeding not GI bleeding: NG flushed clear, there is still red blood from mouth. This indicate that bleeding not from Stomach but from mouth 3. hepatic encephalopathy Recommendation: 1. consider dentist or ENT consult for mouth bleeding 2. lactulose enema 3. transfuse to keep hgb > 8, PLT > 50, INR less than 1.5 4. NG tube is not necessary from GI perspective so can dc if primary or other data migration consultant don't need it. 5. protonix 40 mg iv bid Consultation Date/Type/Reason Admit Date/Time May 24, 2017 at 05:42 Initial Consult Date 05/24/17 Type of Consultation: GI 24 HR Interval Summary Constitutional: improved, no complaints Exam/Review of Systems Vital Signs Vitals Vital Signs Date Time Temp Pulse Resp B/P Pulse Ox O2 Delivery O2 Flow Rate FiO2 05/26/17 15:24 98.2 86 20 98/59 100 05/26/17 08:00 Nasal Cannula 2.0 Intake and Output 05/25/17 05/25/17 05/26/17 15:00 23:00 07:00 Intake Total 950 ml 365 ml Balance 950 ml 365 ml Exam Constitutional: alert, oriented, well developed Psych: nl mood/affect, no complaints Head: atraumatic, normocephalic Eyes: EOMI, PERRL, nl conjunctiva, nl lids, nl sclera ENMT: nl external ears & nose, nl lips & teeth, nl nasal mucosa & septum Neck: non-tender, supple Respiratory: clear to auscultation, normal air movement Cardiovascular: nl pulses, regular rate and rhythm Gastrointestinal: nl liver, spleen, non-tender, soft Musculoskeletal: nl extremities to inspection, nl gait and stance Extremities: normal pulses Neurological: CHILD AND YOUTH PROGRAM ASSISTANT II-XII intact, nl mental status, nl speech, nl strength Skin: nl turgor, No rash or lesions Lymph: nl lymph nodes Results Result Diagram: 05/26/17 0643 05/26/17 0643 Results 24 hrs Laboratory Tests Test 05/25/17 18:00 05/25/17 18:15 05/26/17 00:40 05/26/17 06:35 Phosphorus Level 2.0 L Magnesium Level 1.8 Bedside Glucose 256 H 213 219 Test 05/26/17 06:43 05/26/17 11:55 White Blood Count 7.4 # Red Blood Count 3.29 L Hemoglobin 9.1 L Hematocrit 27.8 L Mean Corpuscular Volume 84.5 Mean Corpuscular Hemoglobin 27.7 L Mean Corpuscular Hemoglobin Concent 32.7 Red Cell Distribution Width 17.3 H Platelet Count 84 L Mean Platelet Volume 12.2 H Neutrophils % 76.8 Lymphocytes % 6.2 L Monocytes % 15.2 H Eosinophils % 1.1 Basophils % 0.3 Nucleated Red Blood Cells % 0.0 Neutrophils # 5.7 Lymphocytes # 0.5 L Monocytes # 1.1 H Eosinophils # 0.1 Basophils # 0.0 Nucleated Red Blood Cells # 0.0 Sodium Level 136 Potassium Level 3.4 L Chloride Level 99 Carbon Dioxide Level 22 Anion Gap 18 H Blood Urea Nitrogen 12 Creatinine 0.55 L Glucose Level 202 Calcium Level 9.2 Total Bilirubin 1.7 H Direct Bilirubin 0.00 Indirect Bilirubin 1.7 H Aspartate Amino Transf (AST/SGOT) 56 H Alanine Aminotransferase (ALT/SGPT) 72 H Alkaline Phosphatase 198 H Ammonia 28 Total Protein 7.4 Albumin 3.4 Globulin 4.00 H Albumin/Globulin Ratio 0.85 Bedside Glucose 254 H Medications Medications Current Medications Dextrose/Sodium Chloride (D5-1/2ns) 1,000 ml @ 50 mls/hr Q20H IV Last administered on 05/26/17 06:38; Admin Dose 50 MLS/HR; Start 05/24/17 at 09:30 Pantoprazole 40 mg 40 mg BID@06,18 IV Last administered on 05/26/17 06:37; Admin Dose 40 MG; Start 05/24/17 at 10:30 Multivitamins/ Thiamine HCl/ Folic Acid/Sodium Chloride (Mvi Adult/ Vitamin B1/ Folic Acid/NS) 1,011.2 ml @ 125 mls/ hr DAILY@09 IVPB Last administered on 08:57; Admin Dose 125 MLS/HR; Start 05/24/17 at 11:00 Lactulose (Lactulose Enema) 100 ml BID AR Last administered on 05/26/17 13:54 ; Admin Dose 100 ML; Start 05/24/17 at 11:00 Lorazepam 1 mg 1 mg Q6H PRN IV anxiety/agitation Last administered on 18:31; Admin Dose 1 MG; Start 05/24/17 at 11:00 Cefepime HCl (Maxipime 1gm/50 ml (Pmx)) 50 ml @ 100 mls/hr Q12 IVPB Last administered on 05/26/17 09:06; Admin Dose 100 MLS/HR; Start 05/24/17 at 21:00 Insulin Aspart NOVOLOG *MILD* ALGORI... Q6 SC Last administered on 05/26/17 11 :59; Admin Dose 3 UNIT; Start 05/25/17 at 00:00 Vancomycin HCl/ Sodium Chloride (Vancocin/NS) 150 ml @ 75 mls/hr Q12H IVPB Last administered on 05/26/17 06:37; Admin Dose 75 MLS/HR; Start 05/25/17 at 18 :00 Miscellaneous Information (*Rx Drug Level Order Reminder*) VANCOMYCIN TROUGH AT 1700 ONCE ONCE XX ; Start 05/26/17 at 17:00; Stop 05/26/17 at 17:01 Miscellaneous Information 1 ea NOTE XX ; Start 05/26/17 at 01:00 Glucose (Glutose) 15 gm Q15M PRN PO DECREASED GLUCOSE; Start 05/26/17 at 01:00 Glucose (Glutose) 22.5 gm Q15M PRN PO DECREASED GLUCOSE; Start 05/26/17 at 01: 00 Dextrose (D50w Syringe) 25 ml Q15M PRN IV DECREASED GLUCOSE; Start 05/26/17 at 01:00 Dextrose (D50w Syringe) 50 ml Q15M PRN IV DECREASED GLUCOSE; Start 05/26/17 at 01:00 Glucagon (Glucagen) 1 mg Q15M PRN IM DECREASED GLUCOSE; Start 05/26/17 at 01:00 Glucose (Glutose) 15 gm Q15M PRN BUCCAL DECREASED GLUCOSE; Start 05/26/17 at 01 :00 Morphine Sulfate (morphine) 1 mg Q4H PRN IV PAIN LEVEL 7-10 Last administered on 05/26/17 13:54; Admin Dose 1 MG; Start 05/26/17 at 14:00 CONOR CLINE MD May 26, 2017 15:55
--- NOTE | 2017-05-26 18:40 | PN ---
Date/Time of Note Date/Time of Note DATE: 05/26/17 TIME: 18:36 Assessment/Plan VTE Prophylaxis VTE Prophylaxis Intervention: other Lines/Catheters IV Catheter Type (from Nrs): Peripheral IV Urinary Cath still in place: No (none) Assessment/Plan Chief Complaint/Hosp Course AMS CIRRHOSIS sepsis bacteremia ANEMIA SIRS PLAN antibiotic per giand id ambulate Problems: Subjective 24 Hr Interval Summary Subjective hx not possible: other (no gi or nose bleed,no ent needed for now dw dr royal,awake) Exam/Review of Systems Vital Signs Vitals Vital Signs Date Time Temp Pulse Resp B/P Pulse Ox O2 Delivery O2 Flow Rate FiO2 05/26/17 16:12 83 05/26/17 15:24 98.2 20 98/59 100 05/26/17 08:00 Nasal Cannula 2.0 Intake and Output 05/25/17 05/25/17 05/26/17 15:00 23:00 07:00 Intake Total 950 ml 365 ml Balance 950 ml 365 ml Exam Neck: supple Respiratory: clear to auscultation Cardiovascular: regular rate and rhythm Gastrointestinal: soft Musculoskeletal: nl extremities to inspection Extremities: normal pulses Results Result Diagram: 05/26/17 0643 05/26/17 0643 Results 24 hrs Laboratory Tests Test 05/26/17 00:40 05/26/17 06:35 05/26/17 06:43 05/26/17 11:55 Bedside Glucose 213 219 254 H White Blood Count 7.4 # Red Blood Count 3.29 L Hemoglobin 9.1 L Hematocrit 27.8 L Mean Corpuscular Volume 84.5 Mean Corpuscular Hemoglobin 27.7 L Mean Corpuscular Hemoglobin Concent 32.7 Red Cell Distribution Width 17.3 H Platelet Count 84 L Mean Platelet Volume 12.2 H Neutrophils % 76.8 Lymphocytes % 6.2 L Monocytes % 15.2 H Eosinophils % 1.1 Basophils % 0.3 Nucleated Red Blood Cells % 0.0 Neutrophils # 5.7 Lymphocytes # 0.5 L Monocytes # 1.1 H Eosinophils # 0.1 Basophils # 0.0 Nucleated Red Blood Cells # 0.0 Sodium Level 136 Potassium Level 3.4 L Chloride Level 99 Carbon Dioxide Level 22 Anion Gap 18 H Blood Urea Nitrogen 12 Creatinine 0.55 L Glucose Level 202 Calcium Level 9.2 Total Bilirubin 1.7 H Direct Bilirubin 0.00 Indirect Bilirubin 1.7 H Aspartate Amino Transf (AST/SGOT) 56 H Alanine Aminotransferase (ALT/SGPT) 72 H Alkaline Phosphatase 198 H Ammonia 28 Total Protein 7.4 Albumin 3.4 Globulin 4.00 H Albumin/Globulin Ratio 0.85 Test 05/26/17 17:07 05/26/17 17:26 Vancomycin Level Trough 9.5 L Bedside Glucose 264 H Medications Medications Current Medications Dextrose/Sodium Chloride (D5-1/2ns) 1,000 ml @ 50 mls/hr Q20H IV Last administered on 05/26/17 06:38; Admin Dose 50 MLS/HR; Start 05/24/17 at 09:30 Pantoprazole 40 mg 40 mg BID@,18 IV Last administered on 05/26/17 17:21; Admin Dose 40 MG; Start 05/24/17 at 10:30 Multivitamins/ Thiamine HCl/ Folic Acid/Sodium Chloride (Mvi Adult/ Vitamin B1/ Folic Acid/NS) 1,011.2 ml @ 125 mls/ hr DAILY@09 IVPB Last administered on 08:57; Admin Dose 125 MLS/HR; Start 05/24/17 at 11:00 Lactulose (Lactulose Enema) 100 ml BID [place] Last administered on 05/26/17 13:54 ; Admin Dose 100 ML; Start 05/24/17 at 11:00 Lorazepam 1 mg 1 mg Q6H PRN IV anxiety/agitation Last administered on 18:31; Admin Dose 1 MG; Start 05/24/17 at 11:00 Cefepime HCl (Maxipime 1gm/50 ml (Pmx)) 50 ml @ 100 mls/hr Q12 IVPB Last administered on 05/26/17 09:06; Admin Dose 100 MLS/HR; Start 05/24/17 at 21:00 Insulin Aspart (Novolog Insulin Pen) NOVOLOG *MILD* ALGORI... Q6 SC Last administered on 05/26/17 17:30; Admin Dose 4 UNIT; Start 05/25/17 at 00:00 Miscellaneous Information 1 ea NOTE XX ; Start 05/26/17 at 01:00 Glucose (Glutose) 15 gm Q15M PRN PO DECREASED GLUCOSE; Start 05/26/17 at 01:00 Glucose (Glutose) 22.5 gm Q15M PRN PO DECREASED GLUCOSE; Start 05/26/17 at 01: 00 Dextrose (D50w Syringe) 25 ml Q15M PRN IV DECREASED GLUCOSE; Start 05/26/17 at 01:00 Dextrose (D50w Syringe) 50 ml Q15M PRN IV DECREASED GLUCOSE; Start 05/26/17 at 01:00 Glucagon (Glucagen) 1 mg Q15M PRN IM DECREASED GLUCOSE; Start 05/26/17 at 01:00 Glucose (Glutose) 15 gm Q15M PRN BUCCAL DECREASED GLUCOSE; Start 05/26/17 at 01 :00 Morphine Sulfate 1 mg 1 mg Q4H PRN IV PAIN LEVEL 7-10 Last administered on 05/26t 18:27; Admin Dose 1 MG; Start 05/26/17 at 14:00 Vancomycin HCl (Vancocin) 250 ml @ 125 mls/hr Q12H IVPB ; Start 05/27/17 at 06: 00 Potassium Chloride (Klor-Con 20) 20 meq BID PO ; Start 05/26/17 at 21:00 JERZY BENSON MD May 26, 2017 18:40
[2017-05-26] MEDS: POTASSIUM CHLORIDE (SR) 20 MEQ TAB PO SCH (20:53)
[2017-05-26] MEDS: LORAZEPAM 2 MG INJ IV PRN (21:07)
[2017-05-27] VITALS (14 sets, daily range): BP systolic 102–128; BP diastolic 58–78; PULSE 97–120; RESP 15–21
[2017-05-27] MEDS: SOD CHLORIDE 0.45% 1,000 ML IV SCH (00:33)
[2017-05-27] MEDS: ACCU-CHEK XX SCH (02:00)
--- NOTE | 2017-05-27 04:28 | PN ---
DATE: 05/26/2017 INFECTIOUS DISEASE PROGRESS NOTE SUBJECTIVE DATA: No acute changes overnight. The patient is more awake today. Looks comfortable. Denies chest pain. No fevers overnight. Family at bedside. LABORATORY AND DIAGNOSTIC DATA: WBC 7.4, hemoglobin 9.1, hematocrit 27.8, platelets 84, neutrophils 76.8. BUN 12, creatinine 0.55. Chest x-ray this morning revealed no acute cardiopulmonary process. Abdominal ultrasound revealed no evidence for free fluid. MICROBIOLOGY: Blood culture growing Staph aureus, preliminary. ANTIMICROBIALS: Vancomycin, cefepime. OBJECTIVE DATA: GENERAL: This is a chronically ill-appearing, fragile, middle- aged [place] male who is awake, in no distress. HEENT: Head atraumatic, normocephalic. Sclerae anicteric. Buccal mucosa dry. NECK: Supple. Trachea midline. CHEST: Rise symmetrical. Breath sounds clear. HEART: S1, S2. ABDOMEN: Soft, bowel sounds present. EXTREMITIES: No cyanosis, edema. ASSESSMENT: 1. Resolving sepsis. 2. Resolving encephalopathy. 3. Bacteremia with blood culture preliminarily growing Staphylococcus aureus, source unknown. 4. Liver cirrhosis. Status post transjugular intrahepatic portosystemic shunt (TIPS). 5. Coronary artery disease. 6. History of cardiac stents. 7. Diabetes. 8. Anemia and thrombocytopenia. PLAN: The patient is doing much better. Pending repeat blood cultures. Pending 2D echo. Continue on current antibiotics. Continue anti-aspiration measures, pending final workup. Above was discussed with family at bedside. Dictated By: Sai Dobbs NP /darren/franky /Document#: [id number] ELAYNE
[2017-05-27] MEDS: PANTOPRAZOLE 40 MG INJ IV SCH ×2 (05:09→17:50)
[2017-05-27] MEDS: VANCOMYCIN 1 GM in NS 250 ML IVPB SCH ×2 (05:09→17:51)
[2017-05-27] MEDS ORDERED: INSULIN ASPART [NOVOLOG] 3 ML PEN SC SCH (06:00)
[2017-05-27] MEDS: CEFEPIME 1GM/50 ML (PMX) 50 ML IVPB SCH (08:52)
[2017-05-27] MEDS: POTASSIUM CHLORIDE (SR) 20 MEQ TAB PO SCH ×2 (10:47→20:46)
[2017-05-27] MEDS: MULTIVITAMINS 10 ML, THIAMINE 100 MG, FOLIC ACID 1 MG in SOD CHLORIDE 0.9% 1,000 ML IVPB SCH (10:50)
[2017-05-27] MEDS: INSULIN ASPART [NOVOLOG] 3 ML PEN SC SCH ×3 (11:20→20:56)
[2017-05-27 11:30] LABS: ALBUMIN 2.8 g/dl (3.3-4.9); ALBUMIN/GLOBULIN RATIO 0.77; CALCIUM 8.5 mg/dl (8.4-10.2); CREATININE 0.48 mg/dl (0.61-1.24); POTASSIUM 3.8 mmol/L (3.5-5.1); TOTAL PROTEIN 6.4 g/dl (6.1-8.1)
[2017-05-27] MEDS: morphine 2 MG INJ IV PRN ×2 (11:30→21:57)
[2017-05-27 12:28] LABS: ABNORMAL IP MESSAGE 1; BASOPHILS % 0.5 % (0.0-2.0); EOSINOPHILS % 0.7 % (0.0-7.0); HEMATOCRIT 26.8 % (42.0-52.0); HEMOGLOBIN 8.7 g/dl (14.0-18.0); LYMPHOCYTES # 0.4 10^3/ul (0.8-2.9); LYMPHOCYTES % 6.8 % (15.0-51.0); MEAN CORPUSCULAR HEMOGLOBIN 27.8 pg (29.0-33.0); MEAN CORPUSCULAR HGB CONC 32.5 g/dl (32.0-37.0); MEAN CORPUSCULAR VOLUME 85.6 fl (82.0-101.0); MEAN PLATELET VOLUME 11.3 fl (7.4-10.4); MONOCYTE # 0.8 10^3/ul (0.3-0.9); MONOCYTES % 15.1 % (0.0-11.0); NEUTROPHILS % 76.4 % (39.0-77.0); PLATELET COUNT 69 10^3/UL (140-415); POSITIVE DIFF @See below; RED BLOOD COUNT 3.13 10^6/ul (4.70-6.10); RED CELL DISTRIBUTION WIDTH 17.5 % (11.5-14.5); WHITE BLOOD COUNT 5.6 10^3/ul (4.8-10.8)
[2017-05-27] MEDS: LACTULOSE 30ML CUP PO SCH ×2 (12:39→20:45)
[2017-05-27] MEDS: LORAZEPAM 2 MG INJ IV PRN (16:55)
[2017-05-27] MEDS ORDERED: ACETAMINOPHEN 325 MG TAB PO ONE (21:00)
[2017-05-27] MEDS: MEROPENEM 500MG/50 ML (PMX) 50 ML IVPB SCH (21:50)
--- NOTE | 2017-05-27 22:50 | PN ---
DATE: 05/27/2017 SUBJECTIVE: No acute changes overnight. Patient is alert, looks comfortable. Complaining of lower back pain. No fevers. LABORATORY AND DIAGNOSTIC DATA: WBC 5.6, H and H 8.7 and 26.8, platelets 69, neutrophils 76.4. BUN 8, creatinine 0.48. MICROBIOLOGY: Blood culture on admission grew Staph aureus. Repeat blood culture the next day still growing staph species. DIAGNOSTICS: 2D echo read by Dr. King Campos revealed no evidence of vegetation, ejection fraction of 55 percent. ANTIMICROBIALS: 1. Vancomycin. 2. Cefepime. OBJECTIVE DATA: GENERAL: This is a fragile chronically ill-appearing middle-aged [place] man who is alert, in no distress. HEENT: Head atraumatic, normocephalic. Sclerae anicteric. Buccal mucosa dry. NECK: Supple. CHEST: Rise symmetrical. Breath sounds clear. Diminished at the bases. HEART: S1, S2. ABDOMEN: Soft, bowel sounds present. EXTREMITIES: Without cyanosis. ASSESSMENT: 1. Bacteremia with blood culture growing Staph aureus. Preliminary, etiology unclear. 2D echo revealed no vegetations. Chest x-ray revealed no acute cardiopulmonary process. 2. Cirrhosis. 3. Resolving encephalopathy. 4. Resolving sepsis. 5. Coronary artery disease, history of cardiac stents. 6. Diabetes. 7. Status post transjugular intrahepatic portosystemic shunt (TIPS) procedure. PLAN: Patient is clinically improving. Again, etiology of his bacteremia is unclear. We are going to order MRI of his lumbar spine and thoracic spine, given significant back pain. We will discontinue cefepime, continue vancomycin. Follow recommendations of consultants. Dictated By: Sai Dobbs NP /darren/ryan /Document#: [id number]
--- NOTE | 2017-05-27 23:35 | CONS ---
Date/Time of Note Date/Time of Note DATE: 05/27/17 TIME: 23:34 Assessment/Plan Assessment/Plan Chief Complaint/Hosp Course AMS CIRRHOSIS sepsis bacteremia ANEMIA SIRS PLAN antibiotic per giand id ambulate Problems: Consultation Date/Type/Reason Admit Date/Time May 24, 2017 at 05:42 Hx of Present Illness AMS CIRRHOSIS sepsis bacteremia ANEMIA SIRS PLAN antibiotic per giand id ambulate Constitutional: improved, no complaints Gastrointestinal: no complaints Genitourinary: no complaints Psychological: nl mood/affect, no complaints Past Medical History Medical History: coronary artery disease, diabetes, GI bleed, other (liver cirrhosis and pancreatitis) Past Surgical History Past Surgical Hx: coronary bypass surgery (2 stent 2016, esophageal varices binding 2014, Portal shunt 2016) Social History Alcohol Use: none (before) Smoking Status: Former smoker Drug Use: none Other Social History neg Exam/Review of Systems Vital Signs Vitals Vital Signs Date Time Temp Pulse Resp B/P Pulse Ox O2 Delivery O2 Flow Rate FiO2 05/27/17 20:08 114 05/27/17 20:00 103.2 15 119/68 99 05/27/17 09:10 Nasal Cannula 2.0 Intake and Output 05/26/17 05/26/17 05/27/17 15:00 23:00 07:00 Intake Total 50 ml 1820 ml 120 ml Balance 50 ml 1820 ml 120 ml Exam Gastrointestinal: nl liver, spleen, soft Extremities: normal pulses Results Result Diagram: 05/27/17 1015 05/27/17 1015 Results 24 hrs Laboratory Tests Test 05/27/17 06:09 05/27/17 10:15 05/27/17 11:27 05/27/17 17:39 Bedside Glucose 270 H 130 273 H White Blood Count 5.6 # Red Blood Count 3.13 L Hemoglobin 8.7 L Hematocrit 26.8 L Mean Corpuscular Volume 85.6 Mean Corpuscular Hemoglobin 27.8 L Mean Corpuscular Hemoglobin Concent 32.5 Red Cell Distribution Width 17.5 H Platelet Count 69 L Mean Platelet Volume 11.3 H Neutrophils % 76.4 Lymphocytes % 6.8 L Monocytes % 15.1 H Eosinophils % 0.7 Basophils % 0.5 Nucleated Red Blood Cells % 0.0 Neutrophils # (Manual) 4.3 Lymphocytes # 0.4 L Monocytes # 0.8 Eosinophils # 0.0 Basophils # 0.0 Nucleated Red Blood Cells # 0.0 Sodium Level 136 Potassium Level 3.8 Chloride Level 103 Carbon Dioxide Level 21 Anion Gap 16 Blood Urea Nitrogen 8 Creatinine 0.48 L Glucose Level 87 # Calcium Level 8.5 Total Bilirubin 1.0 Direct Bilirubin 0.00 Indirect Bilirubin 1.0 Aspartate Amino Transf (AST/SGOT) 80 H Alanine Aminotransferase (ALT/SGPT) 78 H Alkaline Phosphatase 198 H Total Protein 6.4 # Albumin 2.8 L Globulin 3.60 H Albumin/Globulin Ratio 0.77 Test 05/27/17 20:47 Bedside Glucose 258 H Medications Medications Current Medications Pantoprazole 40 mg 40 mg BID@06,18 IV Last administered on 05/27/17 17:50; Admin Dose 40 MG; Start 05/24/17 at 10:30 Multivitamins/ Thiamine HCl/ Folic Acid/Sodium Chloride (Mvi Adult/ Vitamin B1/ Folic Acid/NS) 1,011.2 ml @ 125 mls/ hr DAILY@09 IVPB Last administered on 10:50; Admin Dose 125 MLS/HR; Start 05/24/17 at 11:00 Lorazepam (Ativan) 1 mg Q6H PRN IV anxiety/agitation Last administered on 16:55; Admin Dose 1 MG; Start 05/24/17 at 11:00 Miscellaneous Information 1 ea NOTE XX ; Start 05/26/17 at 01:00 Glucose (Glutose) 15 gm Q15M PRN PO DECREASED GLUCOSE; Start 05/26/17 at 01:00 Glucose (Glutose) 22.5 gm Q15M PRN PO DECREASED GLUCOSE; Start 05/26/17 at 01: 00 Dextrose (D50w Syringe) 25 ml Q15M PRN IV DECREASED GLUCOSE; Start 05/26/17 at 01:00 Dextrose (D50w Syringe) 50 ml Q15M PRN IV DECREASED GLUCOSE; Start 05/26/17 at 01:00 Glucagon (Glucagen) 1 mg Q15M PRN IM DECREASED GLUCOSE; Start 05/26/17 at 01:00 Glucose (Glutose) 15 gm Q15M PRN BUCCAL DECREASED GLUCOSE; Start 05/26/17 at 01 :00 Morphine Sulfate 1 mg 1 mg Q4H PRN IV PAIN LEVEL 7-10 Last administered on 05/27 21:57; Admin Dose 1 MG; Start 05/26/17 at 14:00 Vancomycin HCl (Vancocin) 250 ml @ 125 mls/hr Q12H IVPB Last administered on 17:51; Admin Dose 125 MLS/HR; Start 05/27/17 at 06:00 Potassium Chloride (Klor-Con 20) 20 meq BID PO Last administered on 05/27/17 20:46; Admin Dose 20 MEQ; Start 05/26/17 at 21:00 Diagnostic Test (Pha) 1 ea 1 ea 02 XX ; Start 05/27/17 at 02:00 Sodium Chloride (1/2 NS) 1,000 ml @ 30 mls/hr Q24H IV Last administered on 00:33; Admin Dose 30 MLS/HR; Start 05/27/17 at 00:30 Lactulose 26.7 gm 26.7 gm TID PO Last administered on 05/27/17 20:45; Admin Dose 26.7 GM; Start 05/27/17 at 13:00 Meropenem/Sodium Chloride (Merrem 500mg/50 ml(Pmx)) 50 ml @ 200 mls/hr Q8 IVPB Last administered on 05/27/17 21:50; Admin Dose 200 MLS/HR; Start 05/27/17 at 22:00 JERZY BENSON MD May 27, 2017 23:35
[2017-05-28] VITALS (10 sets, daily range): BP systolic 90–101; BP diastolic 50–59; PULSE 92–111; RESP 15–18
[2017-05-28] MEDS: SOD CHLORIDE 0.45% 1,000 ML IV SCH (00:43)
[2017-05-28] MEDS: ACCU-CHEK XX SCH (02:16)
[2017-05-28] MEDS: morphine 2 MG INJ IV PRN ×4 (02:58→21:08)
[2017-05-28] MEDS: MEROPENEM 500MG/50 ML (PMX) 50 ML IVPB SCH ×2 (05:04→13:25)
[2017-05-28] MEDS: PANTOPRAZOLE 40 MG INJ IV SCH ×2 (05:51→16:57)
[2017-05-28] MEDS: VANCOMYCIN 1 GM in NS 250 ML IVPB SCH (05:52)
[2017-05-28] MEDS: INSULIN ASPART [NOVOLOG] 3 ML PEN SC SCH ×3 (07:51→16:52)
[2017-05-28 08:02] LABS: ADD UMIC YES; UR ASCORBIC ACID NEGATIVE (NEGATIVE); UR BILIRUBIN (Dip) NEGATIVE (NEGATIVE); UR BLOOD (Dip) 1+ mg/dL (NEGATIVE); UR BUDDING YEAST MODERATE /HPF (NONE SEEN); UR CLARITY CLOUDY (CLEAR); UR COLOR YELLOW (YELLOW); UR GLUCOSE (Dip) 2+ mg/dL (NEGATIVE); UR KETONES (Dip) NEGATIVE (NEGATIVE); UR LEUKOCYTE ESTERASE (Dip) 2+ Leu/ul (NEGATIVE); UR NITRITE (Dip) NEGATIVE (NEGATIVE); UR RBC 70 /HPF (0-5); UR SPECIFIC GRAVITY (Dip) 1.013 (1.003-1.030); UR TOTAL PROTEIN (Dip) NEGATIVE (NEGATIVE); UR UROBILINOGEN (Dip) NEGATIVE (NEGATIVE)
[2017-05-28] MEDS: MULTIVITAMINS 10 ML, THIAMINE 100 MG, FOLIC ACID 1 MG in SOD CHLORIDE 0.9% 1,000 ML IVPB SCH (08:18)
[2017-05-28] MEDS: LACTULOSE 30ML CUP PO SCH ×3 (08:19→21:09)
[2017-05-28] MEDS: POTASSIUM CHLORIDE (SR) 20 MEQ TAB PO SCH ×2 (08:19→21:09)
[2017-05-28] MEDS: PANTOPRAZOLE (EC) 40 MG TAB PO SCH (18:00)
[2017-05-28] MEDS ORDERED: INSULIN GLARGINE [LANtus] 3 ML PEN SC SCH (20:00)
--- NOTE | 2017-05-28 20:04 | CONS ---
Date/Time of Note Date/Time of Note DATE: 05/28/17 TIME: 20:02 Assessment/Plan Assessment/Plan Additional Assessment/Plan 1. Cirrhosis of liver 2. Hepatic encephalopathy mild 3. Status post coronary artery stent 6 weeks ago 4. Status post TIPS for recurrent ascites. Plan Continue rifaximin and lactulose. [place]es a cause of his worsening encephalopathy Avoid all kinds of sedative Consultation Date/Type/Reason Admit Date/Time May 24, 2017 at 05:42 Initial Consult Date 05/24/17 Type of Consultation: GI 24 HR Interval Summary Free Text/Dictation Diagonal variation in sleep as per the . Patient keeps awake during night and sleeps during the daytime Exam/Review of Systems Vital Signs Vitals Vital Signs Date Time Temp Pulse Resp B/P Pulse Ox O2 Delivery O2 Flow Rate FiO2 05/28/17 16:23 94 05/28/17 15:49 98.0 18 90/55 100 05/27/17 09:10 Nasal Cannula 2.0 Intake and Output 05/27/17 05/27/17 05/28/17 15:00 23:00 07:00 Intake Total 50 ml 1900 ml 325 ml Output Total 850 ml Balance 50 ml 1900 ml -525 ml Exam Constitutional: alert, oriented, well developed Psych: nl mood/affect, no complaints Head: atraumatic, normocephalic Eyes: EOMI, PERRL, nl conjunctiva, nl lids, nl sclera ENMT: nl external ears & nose, nl lips & teeth, nl nasal mucosa & septum Neck: non-tender, supple Respiratory: clear to auscultation, normal air movement Cardiovascular: nl pulses, regular rate and rhythm Gastrointestinal: nl liver, spleen, non-tender, soft Musculoskeletal: nl extremities to inspection, nl gait and stance Extremities: normal pulses Neurological: RESIDENTIAL FRAMING CARPENTER II-XII intact, nl mental status, nl speech, nl strength Skin: nl turgor, No rash or lesions Lymph: nl lymph nodes Results Result Diagram: 05/27/17 1015 05/27/17 1015 Results 24 hrs Laboratory Tests Test 05/27/17 20:47 05/27/17 21:10 05/28/17 01:34 05/28/17 06:17 Bedside Glucose 258 H 190 Urine Color YELLOW Urine Clarity CLOUDY A Urine pH 6.0 Urine Specific [place] 1.013 Urine Ketones NEGATIVE Urine Nitrite NEGATIVE Urine Bilirubin NEGATIVE Urine Urobilinogen NEGATIVE Urine Leukocyte Esterase 2+ H Urine Microscopic RBC 70 H Urine Microscopic WBC 29 H Urine Yeast (Budding) MODERATE A Urine Hemoglobin 1+ H Urine Glucose 2+ H Urine Total Protein NEGATIVE Activated Partial Thromboplast Time 46.5 H Test 05/28/17 07:46 05/28/17 11:50 05/28/17 16:36 Bedside Glucose 252 H 256 H 378 H Medications Medications Current Medications Multivitamins/ Thiamine HCl/ Folic Acid/Sodium Chloride (Mvi Adult/ Vitamin B1/ Folic Acid/NS) 1,011.2 ml @ 125 mls/ hr DAILY@09 IVPB Last administered on 08:18; Admin Dose 125 MLS/HR; Start 05/24/17 at 11:00 Lorazepam (Ativan) 1 mg Q6H PRN IV anxiety/agitation Last administered on 16:55; Admin Dose 1 MG; Start 05/24/17 at 11:00 Miscellaneous Information 1 ea NOTE XX ; Start 05/26/17 at 01:00 Glucose (Glutose) 15 gm Q15M PRN PO DECREASED GLUCOSE; Start 05/26/17 at 01:00 Glucose (Glutose) 22.5 gm Q15M PRN PO DECREASED GLUCOSE; Start 05/26/17 at 01: 00 Dextrose (D50w Syringe) 25 ml Q15M PRN IV DECREASED GLUCOSE; Start 05/26/17 at 01:00 Dextrose (D50w Syringe) 50 ml Q15M PRN IV DECREASED GLUCOSE; Start 05/26/17 at 01:00 Glucagon (Glucagen) 1 mg Q15M PRN IM DECREASED GLUCOSE; Start 05/26/17 at 01:00 Glucose (Glutose) 15 gm Q15M PRN BUCCAL DECREASED GLUCOSE; Start 05/26/17 at 01 :00 Morphine Sulfate (morphine) 1 mg Q4H PRN IV PAIN LEVEL 7-10 Last administered on 05/28/17 17:00; Admin Dose 1 MG; Start 05/26/17 at 14:00 Potassium Chloride (Klor-Con 20) 20 meq BID PO Last administered on 05/28/17 08:19; Admin Dose 20 MEQ; Start 05/26/17 at 21:00 Diagnostic Test (Pha) 1 ea 1 ea 02 XX Last administered on 05/28/17 02:16; Admin Dose 1 EA; Start 05/27/17 at 02:00 Sodium Chloride (1/2 NS) 1,000 ml @ 30 mls/hr Q24H IV Last administered on 00:43; Admin Dose 30 MLS/HR; Start 05/27/17 at 00:30 Lactulose (Enulose) 26.7 gm TID PO Last administered on 05/28/17 13:25; Admin Dose 26.7 GM; Start 05/27/17 at 13:00 Insulin Glargine 8 unit 8 unit DAILY@20 SC ; Start 05/28/17 at 20:00 Cefepime HCl (Maxipime 1gm/50 ml (Pmx)) 50 ml @ 100 mls/hr Q12 IVPB ; Start at 21:00 Pantoprazole (Protonix Tab) 40 mg BID@06,18 PO ; Start 05/28/17 at 18:00 CONOR CLINE MD May 28, 2017 20:04
--- NOTE | 2017-05-28 20:54 | PN ---
Date/Time of Note Date/Time of Note DATE: 05/28/17 TIME: 20:54 Assessment/Plan VTE Prophylaxis VTE Prophylaxis Intervention: other Lines/Catheters IV Catheter Type (from Nrs): Peripheral IV Assessment/Plan Chief Complaint/Hosp Course AMS CIRRHOSIS sepsis bacteremia ANEMIA dm SIRS PLAN antibiotic per giand id ambulate insulin Problems: Subjective 24 Hr Interval Summary Respiratory: no complaints Cardiovascular: no complaints Exam/Review of Systems Vital Signs Vitals Vital Signs Date Time Temp Pulse Resp B/P Pulse Ox O2 Delivery O2 Flow Rate FiO2 05/28/17 16:23 94 05/28/17 15:49 98.0 18 90/55 100 05/27/17 09:10 Nasal Cannula 2.0 Intake and Output 05/27/17 05/27/17 05/28/17 15:00 23:00 07:00 Intake Total 50 ml 1900 ml 325 ml Output Total 850 ml Balance 50 ml 1900 ml -525 ml Exam Respiratory: clear to auscultation Cardiovascular: regular rate and rhythm Gastrointestinal: soft Musculoskeletal: nl extremities to inspection Extremities: normal pulses Results Result Diagram: 05/27/17 1015 05/27/17 1015 Results 24 hrs Laboratory Tests Test 05/27/17 21:10 05/28/17 01:34 05/28/17 06:17 05/28/17 07:46 Urine Color YELLOW Urine Clarity CLOUDY A Urine pH 6.0 Urine Specific [place] 1.013 Urine Ketones NEGATIVE Urine Nitrite NEGATIVE Urine Bilirubin NEGATIVE Urine Urobilinogen NEGATIVE Urine Leukocyte Esterase 2+ H Urine Microscopic RBC 70 H Urine Microscopic WBC 29 H Urine Yeast (Budding) MODERATE A Urine Hemoglobin 1+ H Urine Glucose 2+ H Urine Total Protein NEGATIVE Bedside Glucose 190 252 H Activated Partial Thromboplast Time 46.5 H Test 05/28/17 11:50 05/28/17 16:36 05/28/17 20:34 Bedside Glucose 256 H 378 H 366 H Medications Medications Current Medications Multivitamins/ Thiamine HCl/ Folic Acid/Sodium Chloride (Mvi Adult/ Vitamin B1/ Folic Acid/NS) 1,011.2 ml @ 125 mls/ hr DAILY@09 IVPB Last administered on 08:18; Admin Dose 125 MLS/HR; Start 05/24/17 at 11:00 Lorazepam (Ativan) 1 mg Q6H PRN IV anxiety/agitation Last administered on 16:55; Admin Dose 1 MG; Start 05/24/17 at 11:00 Miscellaneous Information 1 ea NOTE XX ; Start 05/26/17 at 01:00 Glucose (Glutose) 15 gm Q15M PRN PO DECREASED GLUCOSE; Start 05/26/17 at 01:00 Glucose (Glutose) 22.5 gm Q15M PRN PO DECREASED GLUCOSE; Start 05/26/17 at 01: 00 Dextrose (D50w Syringe) 25 ml Q15M PRN IV DECREASED GLUCOSE; Start 05/26/17 at 01:00 Dextrose (D50w Syringe) 50 ml Q15M PRN IV DECREASED GLUCOSE; Start 05/26/17 at 01:00 Glucagon (Glucagen) 1 mg Q15M PRN IM DECREASED GLUCOSE; Start 05/26/17 at 01:00 Glucose (Glutose) 15 gm Q15M PRN BUCCAL DECREASED GLUCOSE; Start 05/26/17 at 01 :00 Morphine Sulfate (morphine) 1 mg Q4H PRN IV PAIN LEVEL 7-10 Last administered on 05/28/17 17:00; Admin Dose 1 MG; Start 05/26/17 at 14:00 Potassium Chloride (Klor-Con 20) 20 meq BID PO Last administered on 05/28/17 08:19; Admin Dose 20 MEQ; Start 05/26/17 at 21:00 Diagnostic Test (Pha) 1 ea 1 ea 02 XX Last administered on 05/28/17 02:16; Admin Dose 1 EA; Start 05/27/17 at 02:00 Sodium Chloride (1/2 NS) 1,000 ml @ 30 mls/hr Q24H IV Last administered on 00:43; Admin Dose 30 MLS/HR; Start 05/27/17 at 00:30 Lactulose (Enulose) 26.7 gm TID PO Last administered on 05/28/17 13:25; Admin Dose 26.7 GM; Start 05/27/17 at 13:00 Insulin Glargine 8 unit 8 unit DAILY@20 SC ; Start 05/28/17 at 20:00 Cefepime HCl (Maxipime 1gm/50 ml (Pmx)) 50 ml @ 100 mls/hr Q12 IVPB ; Start at 21:00 Pantoprazole (Protonix Tab) 40 mg BID@06,18 PO ; Start 05/28/17 at 18:00 Rifaximin (Xifaxan) 550 mg BID PO ; Start 05/28/17 at 21:00 JERZY BENSON MD May 28, 2017 20:54
[2017-05-28] MEDS: CEFEPIME 1GM/50 ML (PMX) 50 ML IVPB SCH (21:07)
[2017-05-28] MEDS: Insulin NOVOLOG SS MODERATE Algorithm (SS with meals and bedtime) SC SCH (21:07)
[2017-05-28] MEDS: RIFAXIMIN 550 MG TAB PO SCH (21:13)
[2017-05-28] MEDS: ONDANSETRON 4 MG INJ IV PRN (22:23)
[2017-05-29] VITALS (10 sets, daily range): BP systolic 99–125; BP diastolic 56–82; PULSE 95–104; RESP 15–19
[2017-05-29] MEDS: SOD CHLORIDE 0.45% 1,000 ML IV SCH (00:30)
[2017-05-29] MEDS: morphine 2 MG INJ IV PRN ×6 (01:06→21:06)
[2017-05-29] MEDS: ACCU-CHEK XX SCH (02:00)
[2017-05-29] MEDS ORDERED: INSULIN ASPART [NOVOLOG] 3 ML PEN SC STA (03:10)
[2017-05-29] MEDS: PANTOPRAZOLE (EC) 40 MG TAB PO SCH ×2 (06:00→18:02)
[2017-05-29] MEDS: Insulin NOVOLOG SS MODERATE Algorithm (SS with meals and bedtime) SC SCH ×4 (08:38→20:29)
[2017-05-29] MEDS: POTASSIUM CHLORIDE (SR) 20 MEQ TAB PO SCH ×2 (08:39→20:17)
[2017-05-29] MEDS: CEFEPIME 1GM/50 ML (PMX) 50 ML IVPB SCH ×2 (08:39→20:18)
[2017-05-29] MEDS: RIFAXIMIN 550 MG TAB PO SCH ×2 (08:39→20:17)
[2017-05-29] MEDS: LACTULOSE 30ML CUP PO SCH ×3 (08:39→20:17)
[2017-05-29] MEDS: MULTIVITAMINS 10 ML, THIAMINE 100 MG, FOLIC ACID 1 MG in SOD CHLORIDE 0.9% 1,000 ML IVPB SCH (08:40)
--- NOTE | 2017-05-29 09:51 | PN ---
DATE: 05/28/2017 SUBJECTIVE DATA: The patient had been spiking fevers overnight with a T-max of 103.2. He is currently sleeping, looks comfortable and is afebrile. OBJECTIVE DATA: Temperature 98, pulse 102, respirations 18, blood pressure 90/55, saturation 100 percent on room air. Microbiology: Blood cultures persistently growing oxacillin- sensitive Staph aureus, Antimicrobials: The patient is on meropenem and vancomycin. PHYSICAL EXAMINATION: GENERAL: This is a chronically ill-appearing, middle-aged Sinhala man who is in no distress. HEENT: Head atraumatic, normocephalic. Sclerae anicteric. Buccal mucosa dry. NECK: Supple. CHEST: Chest rise symmetrical. Breath sounds diminished at the bases. HEART: S1, S2. ABDOMEN: Soft, bowel sounds present. EXTREMITIES: Without cyanosis. ASSESSMENT: 1. Persistent oxacillin-sensitive Staph aureus bacteremia, etiology unclear. Rule out endocarditis. Rule out discitis. Possible other etiologies. 2. End-stage liver disease. Status post transjugular intrahepatic portosystemic shunt (TIPS) procedure. 3. Coronary artery disease with a history of coronary stents. 4. Diabetes. 5. Resolving encephalopathy. 6. Sepsis. PLAN: Patient remains clinically stable. Pending MRI of the thoracolumbar spine. He is growing persistent MSSA in his blood. 2D echo so far revealed no vegetation. MRI of the spine pending. Chest x-ray revealed no evidence of acute pulmonary disease. We are going to change antibiotics to cefepime and await for final workup. The patient may require MEG to rule out endocarditis. Above was discussed with Dr. Santana. Dictated By: Sai Dobbs NP /darren/kevin /Document#: [id number]
--- NOTE | 2017-05-29 11:00 | RADRPT ---
PROCEDURE: MRI thoracic spine without contrast CLINICAL INDICATION: Back pain. Evaluate for abscess/diskitis. TECHNIQUE: An MRI of the thoracic spine was performed on a [employer] 1.5 khoa scanner utilizing the foll owing sequences: Pre and postcontrast sagittal T1 weighted, sagittal and axial T2 weighted, and sag ittal STIR. COMPARISON: None FINDINGS: There is a normal kyphosis of the thoracic spine. No vertebral body subluxation is seen. The verte bral bodies are normal in height and signal intensity. There is a focal dilatation of the central c anal at the level of C7-T1 measuring 4 mm in AP dimension and 9 mm in craniocaudal length. There is mild discogenic disease without associated central canal or neural foraminal stenosis. The intervert ebral discs are all normal in appearance with no significant disk bulge or protrusion. The central canal and foramina are adequately patent at all levels. The paraspinal soft tissues are normal. IMPRESSION: 1. No abnormal bone marrow/disk signal to suggest osteomyelitis/diskitis. No soft tissue thickenin g is seen though the exam is limited in the absence of IV contrast. 2. No acute osseous or ligamentous injury. 3. Small syrinx cavity measuring 4 mm x 9 mm (AP x cc ) at the level of C7-T1. Mild discogenic dise ase at this level. The canal and neural foramina are adequately patent. 4. Moderate to severe discogenic disease at C5-C6 and C6-C7. Consider MRI of the C-spine for furth er evaluation. RPTAT: AAEE .Ben Galvez MD, Date Time Electronically viewed and signed by .Ben Galvez MD, MD on 05/29/2017 09:33 .O/
[2017-05-29] MEDS: ONDANSETRON 4 MG INJ IV PRN ×2 (12:40→20:25)
[2017-05-29] MEDS ORDERED: CASPOFUNGIN 70 MG in SOD CHLORIDE 0.9% 250 ML IVPB ONE (16:00)
[2017-05-29] MEDS ORDERED: INSULIN LISPRO 100 UNIT/ML VIAL SC SCH (17:25)
--- NOTE | 2017-05-29 18:34 | CONS ---
Date/Time of Note Date/Time of Note DATE: 05/29/17 TIME: 18:32 Assessment/Plan Assessment/Plan Additional Assessment/Plan Additional Assessment/Plan 1. Cirrhosis of liver 2. Hepatic encephalopathy mild 3. Status post coronary artery stent 6 weeks ago 4. Status post TIPS for recurrent ascites. 5. Emesis 6. Epistaxis Plan Continue rifaximin and lactulose. TIPS a cause of his worsening encephalopathy Avoid all kinds of sedative Reglan for possible diabetic gastroparesis Consultation Date/Type/Reason Admit Date/Time May 24, 2017 at 05:42 Initial Consult Date 05/24/17 Type of Consultation: GI 24 HR Interval Summary Free Text/Dictation Emesis Epistaxis as per Exam/Review of Systems Vital Signs Vitals Vital Signs Date Time Temp Pulse Resp B/P Pulse Ox O2 Delivery O2 Flow Rate FiO2 05/29/17 16:00 104 05/29/17 15:37 98.0 19 125/64 99 05/27/17 09:10 Nasal Cannula 2.0 Intake and Output 05/28/17 05/28/17 05/29/17 15:00 23:00 07:00 Intake Total 1940 ml 910 ml Output Total 400 ml 650 ml Balance 1540 ml 260 ml Exam Constitutional: alert, oriented, well developed Psych: nl mood/affect, no complaints Head: atraumatic, normocephalic Eyes: EOMI, PERRL, nl conjunctiva, nl lids, nl sclera ENMT: nl external ears & nose, nl lips & teeth, nl nasal mucosa & septum Neck: non-tender, supple Respiratory: clear to auscultation, normal air movement Cardiovascular: nl pulses, regular rate and rhythm Gastrointestinal: nl liver, spleen, non-tender, soft Musculoskeletal: nl extremities to inspection, nl gait and stance Extremities: normal pulses Neurological: IMPERSONATOR CHARACTER II-XII intact, nl mental status, nl speech, nl strength Skin: nl turgor, No rash or lesions Lymph: nl lymph nodes Results Result Diagram: 05/27/17 1015 05/27/17 1015 Results 24 hrs Laboratory Tests Test 05/28/17 20:34 05/29/17 02:21 05/29/17 03:18 05/29/17 08:10 Bedside Glucose 366 H 390 H 354 H 374 H Test 05/29/17 11:30 05/29/17 17:52 Bedside Glucose 324 H 306 H Medications Medications Current Medications Multivitamins/ Thiamine HCl/ Folic Acid/Sodium Chloride (Mvi Adult/ Vitamin B1/ Folic Acid/NS) 1,011.2 ml @ 125 mls/ hr DAILY@09 IVPB Last administered on 08:40; Admin Dose 125 MLS/HR; Start 05/24/17 at 11:00 Lorazepam (Ativan) 1 mg Q6H PRN IV anxiety/agitation Last administered on 16:55; Admin Dose 1 MG; Start 05/24/17 at 11:00 Miscellaneous Information 1 ea NOTE XX ; Start 05/26/17 at 01:00 Glucose (Glutose) 15 gm Q15M PRN PO DECREASED GLUCOSE; Start 05/26/17 at 01:00 Glucose (Glutose) 22.5 gm Q15M PRN PO DECREASED GLUCOSE; Start 05/26/17 at 01: 00 Dextrose (D50w Syringe) 25 ml Q15M PRN IV DECREASED GLUCOSE; Start 05/26/17 at 01:00 Dextrose (D50w Syringe) 50 ml Q15M PRN IV DECREASED GLUCOSE; Start 05/26/17 at 01:00 Glucagon (Glucagen) 1 mg Q15M PRN IM DECREASED GLUCOSE; Start 05/26/17 at 01:00 Glucose (Glutose) 15 gm Q15M PRN BUCCAL DECREASED GLUCOSE; Start 05/26/17 at 01 :00 Morphine Sulfate (morphine) 1 mg Q4H PRN IV PAIN LEVEL 7-10 Last administered on 05/29/17 17:00; Admin Dose 1 MG; Start 05/26/17 at 14:00 Potassium Chloride (Klor-Con 20) 20 meq BID PO Last administered on 05/29/17 08:39; Admin Dose 20 MEQ; Start 05/26/17 at 21:00 Diagnostic Test (Pha) 1 ea 1 ea 02 XX Last administered on 05/28/17 02:16; Admin Dose 1 EA; Start 05/27/17 at 02:00 Sodium Chloride (1/2 NS) 1,000 ml @ 30 mls/hr Q24H IV Last administered on 00:43; Admin Dose 30 MLS/HR; Start 05/27/17 at 00:30 Lactulose 26.7 gm 26.7 gm TID PO Last administered on 05/29/17 12:44; Admin Dose 26.7 GM; Start 05/27/17 at 13:00 Cefepime HCl (Maxipime 1gm/50 ml (Pmx)) 50 ml @ 100 mls/hr Q12 IVPB Last administered on 05/29/17 08:39; Admin Dose 100 MLS/HR; Start 05/28/17 at 21:00 Pantoprazole (Protonix Tab) 40 mg BID@06,18 PO Last administered on 05/29/17 18:02; Admin Dose 40 MG; Start 05/28/17 at 18:00 Rifaximin (Xifaxan) 550 mg BID PO Last administered on 05/29/17 08:39; Admin Dose 550 MG; Start 05/28/17 at 21:00 Insulin Glargine (Lantus) 12 unit DAILY@20 SC ; Start 05/29/17 at 20:00 Ondansetron HCl 4 mg 4 mg Q6H PRN IV NAUSEA AND/OR VOMITING Last administered on 05/29/17 12:40; Admin Dose 4 MG; Start 05/28/17 at 22:30 Caspofungin/ Sodium Chloride (Cancidas/NS) 250 ml @ 250 mls/hr Q24H IVPB ; Start 05/30/17 at 16:00 CONOR CLINE MD May 29, 2017 18:33
--- NOTE | 2017-05-29 19:28 | PN ---
Date/Time of Note Date/Time of Note DATE: 05/29/17 TIME: 19:27 Assessment/Plan VTE Prophylaxis VTE Prophylaxis Intervention: other Lines/Catheters IV Catheter Type (from Nrsg): Peripheral IV Assessment/Plan Chief Complaint/Hosp Course AMS CIRRHOSIS sepsis bacteremia ANEMIA dm back pain SIRS PLAN antibiotic per giand id ambulate insulin dr louise to see called Problems: Subjective 24 Hr Interval Summary Subjective hx not possible: other (back pain dr louise to see) Cardiovascular: no complaints Gastrointestinal: no complaints Exam/Review of Systems Vital Signs Vitals Vital Signs Date Time Temp Pulse Resp B/P Pulse Ox O2 Delivery O2 Flow Rate FiO2 05/29/17 16:00 104 05/29/17 15:37 98.0 19 125/64 99 05/27/17 09:10 Nasal Cannula 2.0 Intake and Output 05/28/17 05/28/17 05/29/17 15:00 23:00 07:00 Intake Total 1940 ml 910 ml Output Total 400 ml 650 ml Balance 1540 ml 260 ml Exam Neck: supple Respiratory: clear to auscultation Cardiovascular: regular rate and rhythm Gastrointestinal: soft Musculoskeletal: nl extremities to inspection Extremities: normal pulses Results Result Diagram: 05/27/17 1015 05/27/17 1015 Results 24 hrs Laboratory Tests Test 05/28/17 20:34 05/29/17 02:21 05/29/17 03:18 05/29/17 08:10 Bedside Glucose 366 H 390 H 354 H 374 H Test 05/29/17 11:30 05/29/17 17:52 Bedside Glucose 324 H 306 H Medications Medications Current Medications Multivitamins/ Thiamine HCl/ Folic Acid/Sodium Chloride (Mvi Adult/ Vitamin B1/ Folic Acid/NS) 1,011.2 ml @ 125 mls/ hr DAILY@09 IVPB Last administered on 08:40; Admin Dose 125 MLS/HR; Start 05/24/17 at 11:00 Lorazepam (Ativan) 1 mg Q6H PRN IV anxiety/agitation Last administered on 16:55; Admin Dose 1 MG; Start 05/24/17 at 11:00 Miscellaneous Information 1 ea NOTE XX ; Start 05/26/17 at 01:00 Glucose (Glutose) 15 gm Q15M PRN PO DECREASED GLUCOSE; Start 05/26/17 at 01:00 Glucose (Glutose) 22.5 gm Q15M PRN PO DECREASED GLUCOSE; Start 05/26/17 at 01: 00 Dextrose (D50w Syringe) 25 ml Q15M PRN IV DECREASED GLUCOSE; Start 05/26/17 at 01:00 Dextrose (D50w Syringe) 50 ml Q15M PRN IV DECREASED GLUCOSE; Start 05/26/17 at 01:00 Glucagon (Glucagen) 1 mg Q15M PRN IM DECREASED GLUCOSE; Start 05/26/17 at 01:00 Glucose (Glutose) 15 gm Q15M PRN BUCCAL DECREASED GLUCOSE; Start 05/26/17 at 01 :00 Morphine Sulfate (morphine) 1 mg Q4H PRN IV PAIN LEVEL 7-10 Last administered on 05/29/17 17:00; Admin Dose 1 MG; Start 05/26/17 at 14:00 Potassium Chloride (Klor-Con 20) 20 meq BID PO Last administered on 05/29/17 08:39; Admin Dose 20 MEQ; Start 05/26/17 at 21:00 Diagnostic Test (Pha) 1 ea 1 ea 02 XX Last administered on 05/28/17 02:16; Admin Dose 1 EA; Start 05/27/17 at 02:00 Sodium Chloride (1/2 NS) 1,000 ml @ 30 mls/hr Q24H IV Last administered on 00:43; Admin Dose 30 MLS/HR; Start 05/27/17 at 00:30 Lactulose 26.7 gm 26.7 gm TID PO Last administered on 05/29/17 12:44; Admin Dose 26.7 GM; Start 05/27/17 at 13:00 Cefepime HCl (Maxipime 1gm/50 ml (Pmx)) 50 ml @ 100 mls/hr Q12 IVPB Last administered on 05/29/17 08:39; Admin Dose 100 MLS/HR; Start 05/28/17 at 21:00 Pantoprazole (Protonix Tab) 40 mg BID@06,18 PO Last administered on 05/29/17 18:02; Admin Dose 40 MG; Start 05/28/17 at 18:00 Rifaximin (Xifaxan) 550 mg BID PO Last administered on 05/29/17 08:39; Admin Dose 550 MG; Start 05/28/17 at 21:00 Insulin Glargine (Lantus) 12 unit DAILY@20 SC ; Start 05/29/17 at 20:00 Ondansetron HCl 4 mg 4 mg Q6H PRN IV NAUSEA AND/OR VOMITING Last administered on 05/29/17t 12:40; Admin Dose 4 MG; Start 05/28/17 at 22:30 Caspofungin/ Sodium Chloride (Cancidas/NS) 250 ml @ 250 mls/hr Q24H IVPB ; Start 05/30/17 at 16:00 JERZY BENSON MD May 29, 2017 19:28
[2017-05-29] MEDS ORDERED: INSULIN GLARGINE [LANtus] 3 ML PEN SC SCH (20:00)
--- NOTE | 2017-05-29 23:14 | CONS ---
DATE OF ADMISSION: 05/24/2017 DATE OF CONSULTATION: 05/29/2017 HISTORY OF PRESENT ILLNESS: The patient is a 56-year-old male with a known history of liver cirrhosis, with accompanying medical conditions, including GI bleeding and esophageal varices with a history of coronary artery disease, status post coronary bypass surgery, diabetes, and pancreatitis, who was admitted on May 24, 2017, when he came to the emergency room complaining of shortness of breath. Because of the presence of degenerative disc herniation at the level of C5-C6 and C6-C7, which was included in MRI scan of the thoracic spine, Orthopedic Surgery was consulted. On inquiring, patient denies any acute pain involving neck or base of neck. Denies any numbness or tingling in the upper extremities. Denies any obvious numbness and tingling; however, he claims that he has weakness involving the right upper extremity. PHYSICAL EXAMINATION: Was somewhat difficult because of the less than ideal cooperation; however, no obvious motor weakness involving upper extremities was noted, and there were no obvious sensory changes. LABORATORY: There were no x-rays of the cervical spine, and the MRI scan of the cervical spine was not available for my review. DIAGNOSTIC IMPRESSION: Presence of degenerative disc herniation at the level of C5-C6 and C6-C7, documented by MRI scan of the thoracic spine, without significant subjective symptoms or objective findings. RECOMMENDATIONS FOR MANAGEMENT: Obtain MRI scan of the cervical spine. Further treatment recommendation depending on the findings on the MRI scan of the C-spine. However, in the absence of any subjective symptoms or objective findings other than MRI findings, no treatment seems to be indicated at this time. Dictated By: In Wendie Granger MD /darren/ryan /Document#: [id number]
[2017-05-30] VITALS (12 sets, daily range): BP systolic 106–122; BP diastolic 58–76; PULSE 95–109; RESP 16–18
[2017-05-30] MEDS: SOD CHLORIDE 0.45% 1,000 ML IV SCH ×2 (00:23→23:29)
[2017-05-30] MEDS: morphine 2 MG INJ IV PRN ×6 (01:06→23:29)
[2017-05-30] MEDS: ACCU-CHEK XX SCH ×2 (02:00→02:35)
[2017-05-30] MEDS: PANTOPRAZOLE (EC) 40 MG TAB PO SCH ×2 (06:12→18:40)
[2017-05-30 07:14] LABS: ALBUMIN 2.3 g/dl (3.3-4.9); ALBUMIN/GLOBULIN RATIO 0.63; BILIRUBIN,INDIRECT 1.1 mg/dl (0-1.1); BILIRUBIN,TOTAL 1.1 mg/dl (0.2-1.3); CALCIUM 8.2 mg/dl (8.4-10.2); CREATININE 0.4 mg/dl (0.61-1.24); POTASSIUM 4.6 mmol/L (3.5-5.1); TOTAL PROTEIN 5.9 g/dl (6.1-8.1)
--- NOTE | 2017-05-30 08:08 | PN ---
DATE: 05/29/2017 SUBJECTIVE: No events overnight. The patient is awake, complaining of generalized body pain and lower back pain. He is in no distress, afebrile. He had an MRI of the thoracic spine that revealed no evidence for osteomyelitis or diskitis. However, exam was limited in the absence of IV contrast. Lumbar spine MRI on hold secondary to issues with a machinery. OBJECTIVE DATA: VITAL SIGNS: T-max 99.6, T, current 98.2, pulse 100, respirations 17, blood pressure 124/82, and saturation 99 percent on room air. MICROBIOLOGY: Blood cultures on May 24 and , grew Staph aureus, oxacillin sensitive. Blood cultures on May 27, grew Staph aureus. On the , Staph aureus and yeast. Urine culture growing yeast. ANTIMICROBIALS: Patient is on cefepime, status post vancomycin. PHYSICAL EXAMINATION: GENERAL: This is a wasted, well-developed middle-aged Mongolian man who is awake, in no distress. HEENT: Head atraumatic, normocephalic. Sclerae anicteric. Buccal mucosa dry. NECK: Supple. CHEST: Rise symmetrical. Breath sounds diminished at the bases. HEART: S1, S2. ABDOMEN: Soft, bowel sounds present. ASSESSMENT: 1. Severe sepsis with bacteremia and fungemia, rule out endocarditis, rule out discitis. 2. End-stage liver disease, status post transjugular intrahepatic portosystemic shunt (TIPS) procedure. 3. History of cardiac stents. 4. Anemia and thrombocytopenia. 5. Resolving encephalopathy. 6. Diabetes. PLAN: We are going to add Cancidas to the regimen. Continue on cefepime. We will await for MRI of the lumbar spine with contrast. We will order WBC labeled nuclear scan as well. The patient is being followed by Gastroenterology, 2D echo on admission revealed no vegetations, he may need MEG. Dictated By: Sai Dobbs NP /darren/octaviano /Document#: [id number] ELAYNE
[2017-05-30] MEDS: INSULIN ASPART [NOVOLOG] 3 ML PEN SC SCH ×3 (08:24→18:36)
[2017-05-30] MEDS: Insulin NOVOLOG SS MODERATE Algorithm (SS with meals and bedtime) SC SCH ×4 (08:25→20:44)
[2017-05-30] MEDS: RIFAXIMIN 550 MG TAB PO SCH ×2 (10:07→20:21)
[2017-05-30] MEDS: CEFEPIME 1GM/50 ML (PMX) 50 ML IVPB SCH ×2 (10:07→20:20)
[2017-05-30] MEDS: LACTULOSE 30ML CUP PO SCH ×3 (10:07→20:20)
[2017-05-30] MEDS: POTASSIUM CHLORIDE (SR) 20 MEQ TAB PO SCH ×2 (10:07→20:20)
[2017-05-30] MEDS: ONDANSETRON 4 MG INJ IV PRN ×2 (10:13→18:40)
[2017-05-30] MEDS: MULTIVITAMINS 10 ML, THIAMINE 100 MG, FOLIC ACID 1 MG in SOD CHLORIDE 0.9% 1,000 ML IVPB SCH (11:27)
--- NOTE | 2017-05-30 14:53 | CONS ---
Date/Time of Note Date/Time of Note DATE: 05/30/17 TIME: 14:48 Assessment/Plan Assessment/Plan Chief Complaint/Hosp Course Alert, looks comfortable, family at bedside Temperature 97.9 pulse 99 respirations 18 blood pressure 122/58 saturation 99 on room air Microbiology: Urine culture growing Cris glabrata and Cris albicans blood culture growing oxacillin sensitive staph aureus and yeast Antimicrobials: Cancidas, Cefepime PHYSICAL EXAMINATION: GENERAL: This is a wasted, well-developed middle-aged Marshallese man who is awake, in no distress. HEENT: Head atraumatic, normocephalic. Sclerae anicteric. Buccal mucosa dry. NECK: Supple. CHEST: Rise symmetrical. Breath sounds diminished at the bases. HEART: S1, S2. ABDOMEN: Soft, bowel sounds present. ASSESSMENT: 1. Severe sepsis with bacteremia and fungemia, rule out endocarditis, rule out discitis, poss other etiologies. 2. End-stage liver disease, status post transjugular intrahepatic portosystemic shunt (TIPS) procedure. 3. History of cardiac stents. 4. Anemia and thrombocytopenia. 5. Resolving encephalopathy. 6. Diabetes. 7. UTI==>yeast PLAN: Clinically stable, on appropriate antimicrobials, pending lumbar and cervical spine MRI, pending WBC labeled nuclear scan. Discussed with patient and family at bedside Discussed with Dr. Santana Problems: Consultation Date/Type/Reason Admit Date/Time May 24, 2017 at 05:42 Initial Consult Date 05/24/17 Type of Consultation: ID Exam/Review of Systems Vital Signs Vitals Vital Signs Date Time Temp Pulse Resp B/P Pulse Ox O2 Delivery O2 Flow Rate FiO2 05/30/17 12:15 99 05/30/17 11:08 97.9 18 122/58 99 05/27/17 09:10 Nasal Cannula 2.0 Intake and Output 05/29/17 05/29/17 05/30/17 15:00 23:00 07:00 Intake Total 100 ml 440 ml Output Total 1200 ml 800 ml Balance -1100 ml -360 ml Results Result Diagram: 05/27/17 1015 05/30/17 0555 Results 24 hrs Laboratory Tests Test 05/29/17 17:52 05/29/17 20:20 05/30/17 02:33 05/30/17 05:55 Bedside Glucose 306 H 228 H 270 H Sodium Level 136 Potassium Level 4.6 Chloride Level 103 Carbon Dioxide Level 21 Anion Gap 17 H Blood Urea Nitrogen 9 Creatinine 0.40 L Glucose Level 250 H Hemoglobin A1c 7.2 H Calcium Level 8.2 L Total Bilirubin 1.1 Direct Bilirubin 0.00 Indirect Bilirubin 1.1 Aspartate Amino Transf (AST/SGOT) 105 H Alanine Aminotransferase (ALT/SGPT) 90 H Alkaline Phosphatase 237 H Total Protein 5.9 L Albumin 2.3 L Globulin 3.60 H Albumin/Globulin Ratio 0.63 Test 05/30/17 08:19 05/30/17 12:29 Bedside Glucose 283 H 233 H Medications Medications Current Medications Multivitamins/ Thiamine HCl/ Folic Acid/Sodium Chloride (Mvi Adult/ Vitamin B1/ Folic Acid/NS) 1,011.2 ml @ 125 mls/ hr DAILY@09 IVPB Last administered on 11:27; Admin Dose 125 MLS/HR; Start 05/24/17 at 11:00 Lorazepam (Ativan) 1 mg Q6H PRN IV anxiety/agitation Last administered on 16:55; Admin Dose 1 MG; Start 05/24/17 at 11:00 Miscellaneous Information 1 ea NOTE XX ; Start 05/26/17 at 01:00 Glucose (Glutose) 15 gm Q15M PRN PO DECREASED GLUCOSE; Start 05/26/17 at 01:00 Glucose (Glutose) 22.5 gm Q15M PRN PO DECREASED GLUCOSE; Start 05/26/17 at 01: 00 Dextrose (D50w Syringe) 25 ml Q15M PRN IV DECREASED GLUCOSE; Start 05/26/17 at 01:00 Dextrose (D50w Syringe) 50 ml Q15M PRN IV DECREASED GLUCOSE; Start 05/26/17 at 01:00 Glucagon (Glucagen) 1 mg Q15M PRN IM DECREASED GLUCOSE; Start 05/26/17 at 01:00 Glucose (Glutose) 15 gm Q15M PRN BUCCAL DECREASED GLUCOSE; Start 05/26/17 at 01 :00 Morphine Sulfate (morphine) 1 mg Q4H PRN IV PAIN LEVEL 7-10 Last administered on 05/30/17 14:14; Admin Dose 1 MG; Start 05/26/17 at 14:00 Potassium Chloride (Klor-Con 20) 20 meq BID PO Last administered on 05/30/17 10:07; Admin Dose 20 MEQ; Start 05/26/17 at 21:00 Diagnostic Test (Pha) 1 ea 1 ea 02 XX Last administered on 05/30/17 02:35; Admin Dose 1 EA; Start 05/27/17 at 02:00 Sodium Chloride (1/2 NS) 1,000 ml @ 30 mls/hr Q24H IV Last administered on 00:23; Admin Dose 30 MLS/HR; Start 05/27/17 at 00:30 Lactulose 26.7 gm 26.7 gm TID PO Last administered on 05/30/17 14:03; Admin Dose 26.7 GM; Start 05/27/17 at 13:00 Cefepime HCl (Maxipime 1gm/50 ml (Pmx)) 50 ml @ 100 mls/hr Q12 IVPB Last administered on 05/30/17 10:07; Admin Dose 100 MLS/HR; Start 05/28/17 at 21:00 Pantoprazole (Protonix Tab) 40 mg BID@06,18 PO Last administered on 05/30/17 06:12; Admin Dose 40 MG; Start 05/28/17 at 18:00 Rifaximin (Xifaxan) 550 mg BID PO Last administered on 05/30/17 10:07; Admin Dose 550 MG; Start 05/28/17 at 21:00 Insulin Glargine (Lantus) 12 unit DAILY@20 SC Last administered on 05/29/17 20 :23; Admin Dose 12 UNIT; Start 05/29/17 at 20:00 Ondansetron HCl 4 mg 4 mg Q6H PRN IV NAUSEA AND/OR VOMITING Last administered on 05/30/17 10:13; Admin Dose 4 MG; Start 05/28/17 at 22:30 Caspofungin/ Sodium Chloride (Cancidas/NS) 250 ml @ 250 mls/hr Q24H IVPB ; Start 05/30/17 at 16:00 YOLANDA BANKS NP May 30, 2017 14:53
[2017-05-30 14:54] LABS: INR 1.8; PT RATIO 1.6
--- NOTE | 2017-05-30 15:51 | PN ---
Date/Time of Note Date/Time of Note DATE: 05/30/17 TIME: 15:50 Assessment/Plan VTE Prophylaxis VTE Prophylaxis Intervention: SCD's Lines/Catheters IV Catheter Type (from [facility]): Saline Lock Urinary Cath still in place: No Assessment/Plan Chief Complaint/Hosp Course 1. Liver cirrhosis 2. toxic Encephalopathy 3. Anemia 4. hs pancreatitis 5. Hx alcohol abuse 6. Hx esophageal varices 7. SIRS 8. S/p portal shunt 2017 9. S/p cardiac stenting 3 stents Problems: Assessment/Plan 1. Pending MRI lumbar area 2. Poor prognosis Subjective 24 Hr Interval Summary Subjective hx not possible: other (not talking) Exam/Review of Systems Vital Signs Vitals Vital Signs Date Time Temp Pulse Resp B/P Pulse Ox O2 Delivery O2 Flow Rate FiO2 05/30/17 12:15 99 05/30/17 11:08 97.9 18 122/58 99 05/27/17 09:10 Nasal Cannula 2.0 Intake and Output 05/29/17 05/29/17 05/30/17 15:00 23:00 07:00 Intake Total 100 ml 440 ml Output Total 1200 ml 800 ml Balance -1100 ml -360 ml Exam Constitutional: other (sleeping, hardly arousable) Head: normocephalic Eyes: icteric Neck: supple Respiratory: clear to auscultation Cardiovascular: regular rate and rhythm Results Result Diagram: 05/27/17 1015 05/30/17 0555 Results 24 hrs Laboratory Tests Test 05/29/17 17:52 05/29/17 20:20 05/30/17 02:33 05/30/17 05:55 Bedside Glucose 306 H 228 H 270 H Sodium Level 136 Potassium Level 4.6 Chloride Level 103 Carbon Dioxide Level 21 Anion Gap 17 H Blood Urea Nitrogen 9 Creatinine 0.40 L Glucose Level 250 H Hemoglobin A1c 7.2 H Calcium Level 8.2 L Total Bilirubin 1.1 Direct Bilirubin 0.00 Indirect Bilirubin 1.1 Aspartate Amino Transf (AST/SGOT) 105 H Alanine Aminotransferase (ALT/SGPT) 90 H Alkaline Phosphatase 237 H Total Protein 5.9 L Albumin 2.3 L Globulin 3.60 H Albumin/Globulin Ratio 0.63 Test 05/30/17 08:19 05/30/17 12:29 05/30/17 14:06 Bedside Glucose 283 H 233 H Prothrombin Time 21.0 H Prothrombin Time Ratio 1.6 INR International Normalized Ratio 1.80 Medications Medications Current Medications Multivitamins/ Thiamine HCl/ Folic Acid/Sodium Chloride (Mvi Adult/ Vitamin B1/ Folic Acid/NS) 1,011.2 ml @ 125 mls/ hr DAILY@09 IVPB Last administered on 11:27; Admin Dose 125 MLS/HR; Start 05/24/17 at 11:00 Lorazepam (Ativan) 1 mg Q6H PRN IV anxiety/agitation Last administered on 16:55; Admin Dose 1 MG; Start 05/24/17 at 11:00 Miscellaneous Information 1 ea NOTE XX ; Start 05/26/17 at 01:00 Glucose (Glutose) 15 gm Q15M PRN PO DECREASED GLUCOSE; Start 05/26/17 at 01:00 Glucose (Glutose) 22.5 gm Q15M PRN PO DECREASED GLUCOSE; Start 05/26/17 at 01: 00 Dextrose (D50w Syringe) 25 ml Q15M PRN IV DECREASED GLUCOSE; Start 05/26/17 at 01:00 Dextrose (D50w Syringe) 50 ml Q15M PRN IV DECREASED GLUCOSE; Start 05/26/17 at 01:00 Glucagon (Glucagen) 1 mg Q15M PRN IM DECREASED GLUCOSE; Start 05/26/17 at 01:00 Glucose (Glutose) 15 gm Q15M PRN BUCCAL DECREASED GLUCOSE; Start 05/26/17 at 01 :00 Morphine Sulfate (morphine) 1 mg Q4H PRN IV PAIN LEVEL 7-10 Last administered on 05/30/17 14:14; Admin Dose 1 MG; Start 05/26/17 at 14:00 Potassium Chloride (Klor-Con 20) 20 meq BID PO Last administered on 05/30/17 10:07; Admin Dose 20 MEQ; Start 05/26/17 at 21:00 Diagnostic Test (Pha) 1 ea 1 ea 02 XX Last administered on 05/30/17 02:35; Admin Dose 1 EA; Start 05/27/17 at 02:00 Sodium Chloride (1/2 NS) 1,000 ml @ 30 mls/hr Q24H IV Last administered on 00:23; Admin Dose 30 MLS/HR; Start 05/27/17 at 00:30 Lactulose 26.7 gm 26.7 gm TID PO Last administered on 05/30/17 14:03; Admin Dose 26.7 GM; Start 05/27/17 at 13:00 Cefepime HCl (Maxipime 1gm/50 ml (Pmx)) 50 ml @ 100 mls/hr Q12 IVPB Last administered on 05/30/17 10:07; Admin Dose 100 MLS/HR; Start 05/28/17 at 21:00 Pantoprazole (Protonix Tab) 40 mg BID@06,18 PO Last administered on 05/30/17 06:12; Admin Dose 40 MG; Start 05/28/17 at 18:00 Rifaximin (Xifaxan) 550 mg BID PO Last administered on 05/30/17 10:07; Admin Dose 550 MG; Start 05/28/17 at 21:00 Insulin Glargine (Lantus) 12 unit DAILY@20 SC Last administered on 05/29/17 20 :23; Admin Dose 12 UNIT; Start 05/29/17 at 20:00 Ondansetron HCl 4 mg 4 mg Q6H PRN IV NAUSEA AND/OR VOMITING Last administered on 05/30/17 10:13; Admin Dose 4 MG; Start 05/28/17 at 22:30 Caspofungin/ Sodium Chloride (Cancidas/NS) 250 ml @ 250 mls/hr Q24H IVPB ; Start 05/30/17 at 16:00 MALKA VU May 30, 2017 15:51
[2017-05-30] MEDS: CASPOFUNGIN 50 MG in SOD CHLORIDE 0.9% 250 ML IVPB SCH (17:23)
--- NOTE | 2017-05-30 20:41 | CONS ---
Date/Time of Note Date/Time of Note DATE: 05/30/17 TIME: 20:40 Assessment/Plan Assessment/Plan Additional Assessment/Plan Additional Assessment/Plan Additional Assessment/Plan 1. Cirrhosis of liver 2. Hepatic encephalopathy mild 3. Status post coronary artery stent 6 weeks ago 4. Status post TIPS for recurrent ascites. 5. Emesis 6. Epistaxis Plan Continue rifaximin and lactulose. TIPS a cause of his worsening encephalopathy Avoid all kinds of sedative Reglan for possible diabetic gastroparesis Consultation Date/Type/Reason Admit Date/Time May 24, 2017 at 05:42 Initial Consult Date 05/24/17 Type of Consultation: ID 24 HR Interval Summary Constitutional: improved, no complaints Exam/Review of Systems Vital Signs Vitals Vital Signs Date Time Temp Pulse Resp B/P Pulse Ox O2 Delivery O2 Flow Rate FiO2 05/30/17 19:48 98.3 98 16 106/66 100 05/27/17 09:10 Nasal Cannula 2.0 Intake and Output 05/29/17 05/29/17 05/30/17 15:00 23:00 07:00 Intake Total 100 ml 440 ml Output Total 1200 ml 800 ml Balance -1100 ml -360 ml Exam Constitutional: alert, oriented, well developed Psych: nl mood/affect, no complaints Head: atraumatic, normocephalic Eyes: EOMI, PERRL, nl conjunctiva, nl lids, nl sclera ENMT: nl external ears & nose, nl lips & teeth, nl nasal mucosa & septum Neck: non-tender, supple Respiratory: clear to auscultation, normal air movement Cardiovascular: nl pulses, regular rate and rhythm Gastrointestinal: nl liver, spleen, non-tender, soft Musculoskeletal: nl extremities to inspection, nl gait and stance Extremities: normal pulses Neurological: FANS CLERK II-XII intact, nl mental status, nl speech, nl strength Skin: nl turgor, No rash or lesions Lymph: nl lymph nodes Results Result Diagram: 05/27/17 1015 05/30/17 0555 Results 24 hrs Laboratory Tests Test 05/30/17 02:33 05/30/17 05:55 05/30/17 08:19 05/30/17 12:29 Bedside Glucose 270 H 283 H 233 H Sodium Level 136 Potassium Level 4.6 Chloride Level 103 Carbon Dioxide Level 21 Anion Gap 17 H Blood Urea Nitrogen 9 Creatinine 0.40 L Glucose Level 250 H Hemoglobin A1c 7.2 H Calcium Level 8.2 L Total Bilirubin 1.1 Direct Bilirubin 0.00 Indirect Bilirubin 1.1 Aspartate Amino Transf (AST/SGOT) 105 H Alanine Aminotransferase (ALT/SGPT) 90 H Alkaline Phosphatase 237 H Total Protein 5.9 L Albumin 2.3 L Globulin 3.60 H Albumin/Globulin Ratio 0.63 Test 05/30/17 14:06 05/30/17 18:18 05/30/17 20:19 Prothrombin Time 21.0 H Prothrombin Time Ratio 1.6 INR International Normalized Ratio 1.80 Bedside Glucose 228 H 225 H Medications Medications Current Medications Multivitamins/ Thiamine HCl/ Folic Acid/Sodium Chloride (Mvi Adult/ Vitamin B1/ Folic Acid/NS) 1,011.2 ml @ 125 mls/ hr DAILY@09 IVPB Last administered on 11:27; Admin Dose 125 MLS/HR; Start 05/24/17 at 11:00 Lorazepam (Ativan) 1 mg Q6H PRN IV anxiety/agitation Last administered on 16:55; Admin Dose 1 MG; Start 05/24/17 at 11:00 Miscellaneous Information 1 ea NOTE XX ; Start 05/26/17 at 01:00 Glucose (Glutose) 15 gm Q15M PRN PO DECREASED GLUCOSE; Start 05/26/17 at 01:00 Glucose (Glutose) 22.5 gm Q15M PRN PO DECREASED GLUCOSE; Start 05/26/17 at 01: 00 Dextrose (D50w Syringe) 25 ml Q15M PRN IV DECREASED GLUCOSE; Start 05/26/17 at 01:00 Dextrose (D50w Syringe) 50 ml Q15M PRN IV DECREASED GLUCOSE; Start 05/26/17 at 01:00 Glucagon (Glucagen) 1 mg Q15M PRN IM DECREASED GLUCOSE; Start 05/26/17 at 01:00 Glucose (Glutose) 15 gm Q15M PRN BUCCAL DECREASED GLUCOSE; Start 05/26/17 at 01 :00 Morphine Sulfate (morphine) 1 mg Q4H PRN IV PAIN LEVEL 7-10 Last administered on 05/30/17 18:40; Admin Dose 1 MG; Start 05/26/17 at 14:00 Potassium Chloride (Klor-Con 20) 20 meq BID PO Last administered on 05/30/17 10:07; Admin Dose 20 MEQ; Start 05/26/17 at 21:00 Diagnostic Test (Pha) 1 ea 1 ea 02 XX Last administered on 05/30/17 02:35; Admin Dose 1 EA; Start 05/27/17 at 02:00 Sodium Chloride (1/2 NS) 1,000 ml @ 30 mls/hr Q24H IV Last administered on 00:23; Admin Dose 30 MLS/HR; Start 05/27/17 at 00:30 Lactulose 26.7 gm 26.7 gm TID PO Last administered on 05/30/17 14:03; Admin Dose 26.7 GM; Start 05/27/17 at 13:00 Cefepime HCl (Maxipime 1gm/50 ml (Pmx)) 50 ml @ 100 mls/hr Q12 IVPB Last administered on 05/30/17 10:07; Admin Dose 100 MLS/HR; Start 05/28/17 at 21:00 Pantoprazole (Protonix Tab) 40 mg BID@06,18 PO Last administered on 05/30/17 18:40; Admin Dose 40 MG; Start 05/28/17 at 18:00 Rifaximin (Xifaxan) 550 mg BID PO Last administered on 05/30/17 10:07; Admin Dose 550 MG; Start 05/28/17 at 21:00 Ondansetron HCl 4 mg 4 mg Q6H PRN IV NAUSEA AND/OR VOMITING Last administered on 05/30/17 18:40; Admin Dose 4 MG; Start 05/28/17 at 22:30 Caspofungin/ Sodium Chloride (Cancidas/NS) 250 ml @ 250 mls/hr Q24H IVPB Last administered on 05/30/17 17:23; Admin Dose 250 MLS/HR; Start 05/30/17 at 16:00 Insulin Glargine (Lantus) 15 unit DAILY@20 SC ; Start 05/30/17 at 20:00 CONOR CLINE MD May 30, 2017 20:41
[2017-05-30] MEDS: INSULIN GLARGINE [LANtus] 3 ML PEN SC SCH (20:45)
[2017-05-31] VITALS (13 sets, daily range): BP systolic 91–117; BP diastolic 54–70; PULSE 84–105; RESP 16–18
[2017-05-31] MEDS: ACCU-CHEK XX SCH (02:00)
[2017-05-31] MEDS ORDERED: INSULIN ASPART [NOVOLOG] 3 ML PEN SC ONE (03:00)
[2017-05-31] MEDS: morphine 2 MG INJ IV PRN ×4 (03:21→19:46)
[2017-05-31] MEDS: PANTOPRAZOLE (EC) 40 MG TAB PO SCH ×2 (05:48→17:24)
[2017-05-31] MEDS: MULTIVITAMINS 10 ML, THIAMINE 100 MG, FOLIC ACID 1 MG in SOD CHLORIDE 0.9% 1,000 ML IVPB SCH (08:43)
[2017-05-31] MEDS: CEFEPIME 1GM/50 ML (PMX) 50 ML IVPB SCH ×2 (08:43→20:14)
[2017-05-31] MEDS: INSULIN ASPART [NOVOLOG] 3 ML PEN SC SCH ×3 (08:45→17:22)
[2017-05-31] MEDS: Insulin NOVOLOG SS MODERATE Algorithm (SS with meals and bedtime) SC SCH ×4 (08:46→20:15)
[2017-05-31] MEDS: POTASSIUM CHLORIDE (SR) 20 MEQ TAB PO SCH ×2 (08:46→20:14)
[2017-05-31] MEDS: RIFAXIMIN 550 MG TAB PO SCH ×2 (08:47→20:14)
[2017-05-31] MEDS: LACTULOSE 30ML CUP PO SCH ×3 (08:50→20:11)
--- NOTE | 2017-05-31 11:43 | CONS ---
Date/Time of Note Date/Time of Note DATE: 05/31/17 TIME: 11:43 Assessment/Plan Assessment/Plan Additional Assessment/Plan Additional Assessment/Plan Additional Assessment/Plan Additional Assessment/Plan 1. Cirrhosis of liver 2. Hepatic encephalopathy mild 3. Status post coronary artery stent 6 weeks ago 4. Status post TIPS for recurrent ascites. 5. Emesis 6. Epistaxis Plan Continue rifaximin and lactulose. TIPS a cause of his worsening encephalopathy Avoid all kinds of sedative Reglan for possible diabetic gastroparesis Ambulate with the help of physical therapy Consultation Date/Type/Reason Admit Date/Time May 24, 2017 at 05:42 Initial Consult Date 05/24/17 Type of Consultation: ID 24 HR Interval Summary Free Text/Dictation Patient has no neck pain no back No nausea no vomiting Constitutional: improved, no complaints Exam/Review of Systems Vital Signs Vitals Vital Signs Date Time Temp Pulse Resp B/P Pulse Ox O2 Delivery O2 Flow Rate FiO2 05/31/17 11:20 98.9 98 17 101/62 99 05/27/17 09:10 Nasal Cannula 2.0 Intake and Output 05/30/17 05/30/17 05/31/17 14:59 22:59 06:59 Intake Total 1680 ml 820 ml Output Total 650 ml 900 ml Balance 1030 ml -80 ml Exam Constitutional: alert, oriented, well developed Psych: nl mood/affect, no complaints Head: atraumatic, normocephalic Eyes: EOMI, PERRL, nl conjunctiva, nl lids, nl sclera ENMT: nl external ears & nose, nl lips & teeth, nl nasal mucosa & septum Neck: non-tender, supple Respiratory: clear to auscultation, normal air movement Cardiovascular: nl pulses, regular rate and rhythm Gastrointestinal: nl liver, spleen, non-tender, soft Musculoskeletal: nl extremities to inspection, nl gait and stance Extremities: normal pulses 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, nl mental status, nl speech, nl strength Skin: nl turgor, No rash or lesions Lymph: nl lymph nodes Results Result Diagram: 05/27/17 1015 05/30/17 0555 Results 24 hrs Laboratory Tests Test 05/30/17 12:29 05/30/17 14:06 05/30/17 18:18 05/30/17 20:19 Bedside Glucose 233 H 228 H 225 H Prothrombin Time 21.0 H Prothrombin Time Ratio 1.6 INR International Normalized Ratio 1.80 Test 05/31/17 02:40 05/31/17 08:11 Bedside Glucose 335 H 227 H Medications Medications Current Medications Multivitamins/ Thiamine HCl/ Folic Acid/Sodium Chloride (Mvi Adult/ Vitamin B1/ Folic Acid/NS) 1,011.2 ml @ 125 mls/ hr DAILY@09 IVPB Last administered on 08:43; Admin Dose 125 MLS/HR; Start 05/24/17 at 11:00 Lorazepam (Ativan) 1 mg Q6H PRN IV anxiety/agitation Last administered on 16:55; Admin Dose 1 MG; Start 05/24/17 at 11:00 Miscellaneous Information 1 ea NOTE XX ; Start 05/26/17 at 01:00 Glucose (Glutose) 15 gm Q15M PRN PO DECREASED GLUCOSE; Start 05/26/17 at 01:00 Glucose (Glutose) 22.5 gm Q15M PRN PO DECREASED GLUCOSE; Start 05/26/17 at 01: 00 Dextrose (D50w Syringe) 25 ml Q15M PRN IV DECREASED GLUCOSE; Start 05/26/17 at 01:00 Dextrose (D50w Syringe) 50 ml Q15M PRN IV DECREASED GLUCOSE; Start 05/26/17 at 01:00 Glucagon (Glucagen) 1 mg Q15M PRN IM DECREASED GLUCOSE; Start 05/26/17 at 01:00 Glucose (Glutose) 15 gm Q15M PRN BUCCAL DECREASED GLUCOSE; Start 05/26/17 at 01 :00 Morphine Sulfate (morphine) 1 mg Q4H PRN IV PAIN LEVEL 7-10 Last administered on 05/31/17 11:13; Admin Dose 1 MG; Start 05/26/17 at 14:00 Potassium Chloride (Klor-Con 20) 20 meq BID PO Last administered on 05/31/17 08:46; Admin Dose 20 MEQ; Start 05/26/17 at 21:00 Diagnostic Test (Pha) 1 ea 1 ea 02 XX Last administered on 05/30/17 02:35; Admin Dose 1 EA; Start 05/27/17 at 02:00 Sodium Chloride (1/2 NS) 1,000 ml @ 30 mls/hr Q24H IV Last administered on 23:29; Admin Dose 30 MLS/HR; Start 05/27/17 at 00:30 Lactulose 26.7 gm 26.7 gm TID PO Last administered on 05/31/17 08:50; Admin Dose 26.7 GM; Start 05/27/17 at 13:00 Cefepime HCl (Maxipime 1gm/50 ml (Pmx)) 50 ml @ 100 mls/hr Q12 IVPB Last administered on 05/31/17 08:43; Admin Dose 100 MLS/HR; Start 05/28/17 at 21:00 Pantoprazole (Protonix Tab) 40 mg BID@06,18 PO Last administered on 05/31/17 05:48; Admin Dose 40 MG; Start 05/28/17 at 18:00 Rifaximin (Xifaxan) 550 mg BID PO Last administered on 05/31/17 08:47; Admin Dose 550 MG; Start 05/28/17 at 21:00 Ondansetron HCl 4 mg 4 mg Q6H PRN IV NAUSEA AND/OR VOMITING Last administered on 05/30/17 18:40; Admin Dose 4 MG; Start 05/28/17 at 22:30 Caspofungin/ Sodium Chloride (Cancidas/NS) 250 ml @ 250 mls/hr Q24H IVPB Last administered on 05/30/17 17:23; Admin Dose 250 MLS/HR; Start 05/30/17 at 16:00 Insulin Glargine (Lantus) 15 unit DAILY@20 SC Last administered on 05/30/17 20 :45; Admin Dose 15 UNIT; Start 05/30/17 at 20:00 CONOR CLINE MD May 31, 2017 11:43
[2017-05-31] MEDS: CASPOFUNGIN 50 MG in SOD CHLORIDE 0.9% 250 ML IVPB SCH (16:16)
--- NOTE | 2017-05-31 16:17 | PN ---
Date/Time of Note Date/Time of Note DATE: 05/31/17 TIME: 16:15 Assessment/Plan VTE Prophylaxis VTE Prophylaxis Intervention: heparin Lines/Catheters IV [facility] Type (from [email or web address] Saline Lock Urinary Cath still in place: No Assessment/Plan Chief Complaint/Hosp Course 1. Liver cirrhosis 2. toxic Encephalopathy 3. Anemia 4. hs pancreatitis 5. Hx alcohol abuse 6. Hx esophageal varices 7. SIRS 8. S/p portal shunt 2017 9. S/p cardiac stenting 3 stents Problems: Assessment/Plan 1. PT for mobility 2. decrease lactulose to BID Subjective 24 Hr Interval Summary Constitutional: improved, no complaints Musculoskeletal: back pain, bone/joint pain Exam/Review of Systems Vital Signs Vitals Vital Signs Date Time Temp Pulse Resp B/P Pulse Ox O2 Delivery O2 Flow Rate FiO2 05/31/17 15:57 98.8 99 17 91/64 98 05/27/17 09:10 Nasal Cannula 2.0 Intake and Output 05/30/17 05/30/17 05/31/17 15:00 23:00 07:00 Intake Total 1805 ml 695 ml Output Total 650 ml 900 ml Balance 1155 ml -205 ml Exam Constitutional: alert, oriented Respiratory: diminished breath sounds Cardiovascular: regular rate and rhythm Results Result Diagram: 05/27/17 1015 05/30/17 0555 Results 24 hrs Laboratory Tests Test 05/30/17 18:18 05/30/17 20:19 05/31/17 02:40 05/31/17 08:11 Bedside Glucose 228 H 225 H 335 H 227 H Test 05/31/17 12:06 Bedside Glucose 319 H Medications Medications Current Medications Multivitamins/ Thiamine HCl/ Folic Acid/Sodium Chloride (Mvi Adult/ Vitamin B1/ Folic Acid/NS) 1,011.2 ml @ 125 mls/ hr DAILY@09 IVPB Last administered on 08:43; Admin Dose 125 MLS/HR; Start 05/24/17 at 11:00 Lorazepam (Ativan) 1 mg Q6H PRN IV anxiety/agitation Last administered on 16:55; Admin Dose 1 MG; Start 05/24/17 at 11:00 Miscellaneous Information 1 ea NOTE XX ; Start 05/26/17 at 01:00 Glucose (Glutose) 15 gm Q15M PRN PO DECREASED GLUCOSE; Start 05/26/17 at 01:00 Glucose (Glutose) 22.5 gm Q15M PRN PO DECREASED GLUCOSE; Start 05/26/17 at 01: 00 Dextrose (D50w Syringe) 25 ml Q15M PRN IV DECREASED GLUCOSE; Start 05/26/17 at 01:00 Dextrose (D50w Syringe) 50 ml Q15M PRN IV DECREASED GLUCOSE; Start 05/26/17 at 01:00 Glucagon (Glucagen) 1 mg Q15M PRN IM DECREASED GLUCOSE; Start 05/26/17 at 01:00 Glucose (Glutose) 15 gm Q15M PRN BUCCAL DECREASED GLUCOSE; Start 05/26/17 at 01 :00 Morphine Sulfate (morphine) 1 mg Q4H PRN IV PAIN LEVEL 7-10 Last administered on 05/31/17 15:06; Admin Dose 1 MG; Start 05/26/17 at 14:00 Potassium Chloride (Klor-Con 20) 20 meq BID PO Last administered on 05/31/17 08:46; Admin Dose 20 MEQ; Start 05/26/17 at 21:00 Diagnostic Test (Pha) 1 ea 1 ea 02 XX Last administered on 05/30/17 02:35; Admin Dose 1 EA; Start 05/27/17 at 02:00 Sodium Chloride 1,000 ml @ 30 mls/hr Q24H IV Last administered on 05/30/17 23 :29; Admin Dose 30 MLS/HR; Start 05/27/17 at 00:30 Cefepime HCl (Maxipime 1gm/50 ml (Pmx)) 50 ml @ 100 mls/hr Q12 IVPB Last administered on 05/31/17 08:43; Admin Dose 100 MLS/HR; Start 05/28/17 at 21:00 Pantoprazole (Protonix Tab) 40 mg BID@06,18 PO Last administered on 05/31/17 05:48; Admin Dose 40 MG; Start 05/28/17 at 18:00 Rifaximin (Xifaxan) 550 mg BID PO Last administered on 05/31/17 08:47; Admin Dose 550 MG; Start 05/28/17 at 21:00 Ondansetron HCl 4 mg 4 mg Q6H PRN IV NAUSEA AND/OR VOMITING Last administered on 05/30/17 18:40; Admin Dose 4 MG; Start 05/28/17 at 22:30 Caspofungin/ Sodium Chloride (Cancidas/NS) 250 ml @ 250 mls/hr Q24H IVPB Last administered on 05/30/17 17:23; Admin Dose 250 MLS/HR; Start 05/30/17 at 16:00 Insulin Glargine (Lantus) 15 unit DAILY@20 SC Last administered on 05/30/17 20 :45; Admin Dose 15 UNIT; Start 05/30/17 at 20:00 Lactulose (Enulose) 26.7 gm BID PO ; Start 05/31/17 at 21:00; Status UNV Thiamine HCl (Vitamin B1) 100 mg DAILY PO ; Start 06/01/17 at 09:00; Status UNV Multivitamins/ Minerals (Theragran-M) 1 tab DAILY PO ; Start 06/01/17 at 09:00; Status UNV MALKA VU May 31, 2017 16:16
--- NOTE | 2017-05-31 16:46 | CONS ---
Date/Time of Note Date/Time of Note DATE: 05/31/17 TIME: 16:44 Assessment/Plan Assessment/Plan Chief Complaint/Hosp Course Alert, shivering, afebrile, looks comfortable Microbiology: Urine culture growing Cris glabrata and Cris albicans blood culture growing oxacillin sensitive staph aureus and yeast Antimicrobials: Cancidas, Cefepime PHYSICAL EXAMINATION: GENERAL: This is a wasted, well-developed middle-aged German man who is awake, in no distress. HEENT: Head atraumatic, normocephalic. Sclerae anicteric. Buccal mucosa dry. NECK: Supple. CHEST: Rise symmetrical. Breath sounds diminished at the bases. HEART: S1, S2. ABDOMEN: Soft, bowel sounds present. ASSESSMENT: 1. Severe sepsis with bacteremia and fungemia, rule out endocarditis, rule out discitis, poss other etiologies. 2. End-stage liver disease, status post transjugular intrahepatic portosystemic shunt (TIPS) procedure. 3. History of cardiac stents. 4. Anemia and thrombocytopenia. 5. Resolving encephalopathy. 6. Diabetes. 7. UTI==>yeast PLAN: Clinically stable, on appropriate antimicrobials, pending lumbar and cervical spine MRI, pending WBC labeled nuclear scan, will repeat bld cx today, may need MEG. dw staff Problems: Consultation Date/Type/Reason Admit Date/Time May 24, 2017 at 05:42 Initial Consult Date 05/24/17 Type of Consultation: ID Exam/Review of Systems Vital Signs Vitals Vital Signs Date Time Temp Pulse Resp B/P Pulse Ox O2 Delivery O2 Flow Rate FiO2 05/31/17 15:57 98.8 99 17 91/64 98 05/27/17 09:10 Nasal Cannula 2.0 Intake and Output 05/30/17 05/30/17 05/31/17 15:00 23:00 07:00 Intake Total 1805 ml 695 ml Output Total 650 ml 900 ml Balance 1155 ml -205 ml Results Result Diagram: 05/27/17 1015 05/30/17 0555 Results 24 hrs Laboratory Tests Test 05/30/17 18:18 05/30/17 20:19 05/31/17 02:40 05/31/17 08:11 Bedside Glucose 228 H 225 H 335 H 227 H Test 05/31/17 12:06 Bedside Glucose 319 H Medications Medications Current Medications Lorazepam (Ativan) 1 mg Q6H PRN IV anxiety/agitation Last administered on 16:55; Admin Dose 1 MG; Start 05/24/17 at 11:00 Miscellaneous Information 1 ea NOTE XX ; Start 05/26/17 at 01:00 Glucose (Glutose) 15 gm Q15M PRN PO DECREASED GLUCOSE; Start 05/26/17 at 01:00 Glucose (Glutose) 22.5 gm Q15M PRN PO DECREASED GLUCOSE; Start 05/26/17 at 01: 00 Dextrose (D50w Syringe) 25 ml Q15M PRN IV DECREASED GLUCOSE; Start 05/26/17 at 01:00 Dextrose (D50w Syringe) 50 ml Q15M PRN IV DECREASED GLUCOSE; Start 05/26/17 at 01:00 Glucagon (Glucagen) 1 mg Q15M PRN IM DECREASED GLUCOSE; Start 05/26/17 at 01:00 Glucose (Glutose) 15 gm Q15M PRN BUCCAL DECREASED GLUCOSE; Start 05/26/17 at 01 :00 Morphine Sulfate (morphine) 1 mg Q4H PRN IV PAIN LEVEL 7-10 Last administered on 05/31/17 15:06; Admin Dose 1 MG; Start 05/26/17 at 14:00 Potassium Chloride (Klor-Con 20) 20 meq BID PO Last administered on 05/31/17 08:46; Admin Dose 20 MEQ; Start 05/26/17 at 21:00 Diagnostic Test (Pha) 1 ea 1 ea 02 XX Last administered on 05/30/17 02:35; Admin Dose 1 EA; Start 05/27/17 at 02:00 Cefepime HCl (Maxipime 1gm/50 ml (Pmx)) 50 ml @ 100 mls/hr Q12 IVPB Last administered on 05/31/17 08:43; Admin Dose 100 MLS/HR; Start 05/28/17 at 21:00 Pantoprazole (Protonix Tab) 40 mg BID@06,18 PO Last administered on 05/31/17 05:48; Admin Dose 40 MG; Start 05/28/17 at 18:00 Rifaximin (Xifaxan) 550 mg BID PO Last administered on 05/31/17 08:47; Admin Dose 550 MG; Start 05/28/17 at 21:00 Ondansetron HCl 4 mg 4 mg Q6H PRN IV NAUSEA AND/OR VOMITING Last administered on 05/30/17 18:40; Admin Dose 4 MG; Start 05/28/17 at 22:30 Caspofungin/ Sodium Chloride (Cancidas/NS) 250 ml @ 250 mls/hr Q24H IVPB Last administered on 05/31/17 16:16; Admin Dose 250 MLS/HR; Start 05/30/17 at 16:00 Insulin Glargine (Lantus) 15 unit DAILY@20 SC Last administered on 05/30/17 20 :45; Admin Dose 15 UNIT; Start 05/30/17 at 20:00 Lactulose (Enulose) 26.7 gm BID PO ; Start 05/31/17 at 21:00 Thiamine HCl (Vitamin B1) 100 mg DAILY PO ; Start 06/01/17 at 09:00 Multivitamins/ Minerals (Theragran-M) 1 tab DAILY PO ; Start 06/01/17 at 09:00 YOLANDA BANKS NP May 31, 2017 16:46
[2017-05-31] MEDS: INSULIN GLARGINE [LANtus] 3 ML PEN SC SCH (20:31)
[2017-06-01] VITALS (12 sets, daily range): BP systolic 92–113; BP diastolic 55–59; PULSE 87–108; RESP 16–17
[2017-06-01] MEDS: morphine 2 MG INJ IV PRN ×5 (00:06→20:39)
[2017-06-01] MEDS: ACCU-CHEK XX SCH (00:06)
[2017-06-01] MEDS: PANTOPRAZOLE (EC) 40 MG TAB PO SCH ×2 (05:09→17:52)
[2017-06-01 06:52] LABS: ABNORMAL IP MESSAGE 1; BASOPHILS % 0.7 % (0.0-2.0); EOSINOPHILS # 0.2 10^3/ul (0.0-0.5); EOSINOPHILS % 3.1 % (0.0-7.0); HEMATOCRIT 22.4 % (42.0-52.0); HEMOGLOBIN 7.2 g/dl (14.0-18.0); LYMPHOCYTES # 0.7 10^3/ul (0.8-2.9); LYMPHOCYTES % 11.9 % (15.0-51.0); MEAN CORPUSCULAR HGB CONC 32.1 g/dl (32.0-37.0); MEAN CORPUSCULAR VOLUME 87.2 fl (82.0-101.0); MEAN PLATELET VOLUME 11.5 fl (7.4-10.4); MONOCYTE # 0.7 10^3/ul (0.3-0.9); MONOCYTES % 11.9 % (0.0-11.0); NEUTROPHILS % 71.2 % (39.0-77.0); POSITIVE DIFF @See below; RED BLOOD COUNT 2.57 10^6/ul (4.70-6.10); RED CELL DISTRIBUTION WIDTH 18.7 % (11.5-14.5); WHITE BLOOD COUNT 6.1 10^3/ul (4.8-10.8)
[2017-06-01 07:10] LABS: CALCIUM 8.1 mg/dl (8.4-10.2); CREATININE 0.55 mg/dl (0.61-1.24); POTASSIUM 4.5 mmol/L (3.5-5.1)
[2017-06-01 07:29] LABS: PLATELET COUNT 83 10^3/UL (140-415)
[2017-06-01] MEDS: INSULIN ASPART [NOVOLOG] 3 ML PEN SC SCH ×3 (08:33→17:55)
[2017-06-01] MEDS: Insulin NOVOLOG SS MODERATE Algorithm (SS with meals and bedtime) SC SCH ×4 (08:34→20:46)
[2017-06-01] MEDS: MULTIVITAMINS/MINERALS TAB PO SCH (08:35)
[2017-06-01] MEDS: POTASSIUM CHLORIDE (SR) 20 MEQ TAB PO SCH ×2 (08:35→20:39)
[2017-06-01] MEDS: RIFAXIMIN 550 MG TAB PO SCH ×2 (08:35→20:39)
[2017-06-01] MEDS: THIAMINE 100 MG TAB PO SCH (08:35)
[2017-06-01] MEDS: LACTULOSE 30ML CUP PO SCH ×2 (08:36→20:40)
[2017-06-01] MEDS: CEFEPIME 1GM/50 ML (PMX) 50 ML IVPB SCH ×2 (08:36→21:59)
--- NOTE | 2017-06-01 14:24 | CONS ---
Date/Time of Note Date/Time of Note DATE: 06/01/17 TIME: 14:23 Assessment/Plan Assessment/Plan Chief Complaint/Hosp Course Alert, feels better, looks comfortable Microbiology: Urine culture growing Cris glabrata and Cris albicans blood culture growing oxacillin sensitive staph aureus and yeast Antimicrobials: Cancidas, Cefepime PHYSICAL EXAMINATION: GENERAL: This is a wasted, well-developed middle-aged [place] man who is awake, in no distress. HEENT: Head atraumatic, normocephalic. Sclerae anicteric. Buccal mucosa dry. NECK: Supple. CHEST: Rise symmetrical. Breath sounds diminished at the bases. HEART: S1, S2. ABDOMEN: Soft, bowel sounds present. ASSESSMENT: 1. Severe sepsis with bacteremia and fungemia, rule out endocarditis, rule out discitis, poss other etiologies. 2. End-stage liver disease, status post transjugular intrahepatic portosystemic shunt (TIPS) procedure. 3. History of cardiac stents. 4. Anemia and thrombocytopenia. 5. Resolving encephalopathy. 6. Diabetes. 7. UTI==>yeast PLAN: Clinically stable, on appropriate antimicrobials, pending lumbar and cervical spine MRI, pending WBC labeled nuclear scan, pending repeat bld cx, start PT, may need MEG. dw staff/pt Problems: Consultation Date/Type/Reason Admit Date/Time May 24, 2017 at 05:42 Initial Consult Date 05/24/17 Type of Consultation: ID Exam/Review of Systems Vital Signs Vitals Vital Signs Date Time Temp Pulse Resp B/P Pulse Ox O2 Delivery O2 Flow Rate FiO2 06/01/17 13:35 87 06/01/17 11:20 99.0 16 94/55 98 Intake and Output 05/31/17 05/31/17 06/01/17 15:00 23:00 07:00 Intake Total 50 ml 2910 ml Output Total 400 ml Balance 50 ml 2510 ml Results Result Diagram: 06/01/17 0544 06/01/17 0544 Results 24 hrs Laboratory Tests Test 05/31/17 17:15 05/31/17 19:44 06/01/17 05:44 06/01/17 08:28 Bedside Glucose 349 H 149 253 H White Blood Count 6.1 Red Blood Count 2.57 L Hemoglobin 7.2 L Hematocrit 22.4 L Mean Corpuscular Volume 87.2 Mean Corpuscular Hemoglobin 28.0 L Mean Corpuscular Hemoglobin Concent 32.1 Red Cell Distribution Width 18.7 H Platelet Count 83 #L Mean Platelet Volume 11.5 H Neutrophils % 71.2 Lymphocytes % 11.9 L Monocytes % 11.9 H Eosinophils % 3.1 Basophils % 0.7 Nucleated Red Blood Cells % 0.0 Neutrophils # (Manual) 4 Lymphocytes # 0.7 L Monocytes # 0.7 Eosinophils # 0.2 Basophils # 0.0 Nucleated Red Blood Cells # 0.0 Sodium Level 132 L Potassium Level 4.5 Chloride Level 100 Carbon Dioxide Level 20 L Anion Gap 17 H Blood Urea Nitrogen 8 Creatinine 0.55 L Glucose Level 200 Calcium Level 8.1 L Test 06/01/17 12:35 Bedside Glucose 205 Medications Medications Current Medications Lorazepam (Ativan) 1 mg Q6H PRN IV anxiety/agitation Last administered on 16:55; Admin Dose 1 MG; Start 05/24/17 at 11:00 Miscellaneous Information 1 ea NOTE XX ; Start 05/26/17 at 01:00 Glucose (Glutose) 15 gm Q15M PRN PO DECREASED GLUCOSE; Start 05/26/17 at 01:00 Glucose (Glutose) 22.5 gm Q15M PRN PO DECREASED GLUCOSE; Start 05/26/17 at 01: 00 Dextrose (D50w Syringe) 25 ml Q15M PRN IV DECREASED GLUCOSE; Start 05/26/17 at 01:00 Dextrose (D50w Syringe) 50 ml Q15M PRN IV DECREASED GLUCOSE; Start 05/26/17 at 01:00 Glucagon (Glucagen) 1 mg Q15M PRN IM DECREASED GLUCOSE; Start 05/26/17 at 01:00 Glucose (Glutose) 15 gm Q15M PRN BUCCAL DECREASED GLUCOSE; Start 05/26/17 at 01 :00 Morphine Sulfate (morphine) 1 mg Q4H PRN IV PAIN LEVEL 7-10 Last administered on 06/01/17 10:51; Admin Dose 1 MG; Start 05/26/17 at 14:00 Potassium Chloride (Klor-Con 20) 20 meq BID PO Last administered on 06/01/17 08:35; Admin Dose 20 MEQ; Start 05/26/17 at 21:00 Diagnostic Test (Pha) 1 ea 1 ea 02 XX Last administered on 05/30/17 02:35; Admin Dose 1 EA; Start 05/27/17 at 02:00 Cefepime HCl (Maxipime 1gm/50 ml (Pmx)) 50 ml @ 100 mls/hr Q12 IVPB Last administered on 06/01/17 08:36; Admin Dose 100 MLS/HR; Start 05/28/17 at 21:00 Pantoprazole (Protonix Tab) 40 mg BID@06,18 PO Last administered on 06/01/17 05:09; Admin Dose 40 MG; Start 05/28/17 at 18:00 Rifaximin (Xifaxan) 550 mg BID PO Last administered on 06/01/17 08:35; Admin Dose 550 MG; Start 05/28/17 at 21:00 Ondansetron HCl 4 mg 4 mg Q6H PRN IV NAUSEA AND/OR VOMITING Last administered on 05/30/17 18:40; Admin Dose 4 MG; Start 05/28/17 at 22:30 Caspofungin/ Sodium Chloride (Cancidas/NS) 250 ml @ 250 mls/hr Q24H IVPB Last administered on 05/31/17 16:16; Admin Dose 250 MLS/HR; Start 05/30/17 at 16:00 Insulin Glargine (Lantus) 15 unit DAILY@20 SC Last administered on 05/31/17 20 :31; Admin Dose 15 UNIT; Start 05/30/17 at 20:00 Lactulose (Enulose) 26.7 gm BID PO Last administered on 06/01/17 08:36; Admin Dose 26.7 GM; Start 05/31/17 at 21:00 Thiamine HCl (Vitamin B1) 100 mg DAILY PO Last administered on 06/01/17 08:35 ; Admin Dose 100 MG; Start 06/01/17 at 09:00 Multivitamins/ Minerals (Theragran-M) 1 tab DAILY PO Last administered on 08:35; Admin Dose 1 TAB; Start 06/01/17 at 09:00 YOLANDA BANKS NP Jun 01, 2017 14:24
[2017-06-01] MEDS: CASPOFUNGIN 50 MG in SOD CHLORIDE 0.9% 250 ML IVPB SCH (16:48)
--- NOTE | 2017-06-01 19:43 | PN ---
Date/Time of Note Date/Time of Note DATE: 06/01/17 TIME: 19:39 Assessment/Plan VTE Prophylaxis VTE Prophylaxis Intervention: contraindicated Lines/Catheters [facility] Sal[facility] Urinary Cath still in place: No Assessment/Plan Chief Complaint/Hosp Course 1 Severe sepsis with bacteremia and fungemia, rule out endocarditis, rule out discitis, poss other etiologies. 2. End-stage liver disease, status post transjugular intrahepatic portosystemic shunt (TIPS) procedure. 3 Toxic Encephalopathy 3. Anemia 4. hs pancreatitis 5. Hx alcohol abuse 6. Hx esophageal varices 7. SIRS 8. S/p portal shunt 2016 9. S/p cardiac stenting 3 stents PLAN: Clinically stable, on appropriate antimicrobials, pending lumbar and cervical spine MRII ( [place] done tmw) C/W Lactulose Recheck CBC (as Hb dropping) no evidence of bleed Problems: Subjective 24 Hr Interval Summary Free Text/Dictation Diarrhoea improved Exam/Review of Systems Vital Signs Vitals Vital Signs Date Time Temp Pulse Resp B/P Pulse Ox O2 Delivery O2 Flow Rate FiO2 06/01/17 16:54 94 06/01/17 15:38 98.9 16 98/58 97 Intake and Output 05/31/17 05/31/17 06/01/17 15:00 23:00 07:00 Intake Total 50 ml 2910 ml Output Total 400 ml Balance 50 ml 2510 ml Exam constitutional: alert, oriented Respiratory: diminished breath sounds Cardiovascular: regular rate and rhythm Results Result Diagram: 06/01/17 0544 06/01/17 0544 Results 24 hrs Laboratory Tests Test 05/31/17 19:44 06/01/17 05:44 06/01/17 08:28 06/01/17 12:35 Bedside Glucose 149 253 H 205 White Blood Count 6.1 Red Blood Count 2.57 L Hemoglobin 7.2 L Hematocrit 22.4 L Mean Corpuscular Volume 87.2 Mean Corpuscular Hemoglobin 28.0 L Mean Corpuscular Hemoglobin Concent 32.1 Red Cell Distribution Width 18.7 H Platelet Count 83 #L Mean Platelet Volume 11.5 H Neutrophils % 71.2 Lymphocytes % 11.9 L Monocytes % 11.9 H Eosinophils % 3.1 Basophils % 0.7 Nucleated Red Blood Cells % 0.0 Neutrophils # (Manual) 4 Lymphocytes # 0.7 L Monocytes # 0.7 Eosinophils # 0.2 Basophils # 0.0 Nucleated Red Blood Cells # 0.0 Sodium Level 132 L Potassium Level 4.5 Chloride Level 100 Carbon Dioxide Level 20 L Anion Gap 17 H Blood Urea Nitrogen 8 Creatinine 0.55 L Glucose Level 200 Calcium Level 8.1 L Test 06/01/17 17:39 Bedside Glucose 217 Medications Medications Current Medications Lorazepam (Ativan) 1 mg Q6H PRN IV anxiety/agitation Last administered on 16:55; Admin Dose 1 MG; Start 05/24/17 at 11:00 Miscellaneous Information 1 ea NOTE XX ; Start 05/26/17 at 01:00 Glucose (Glutose) 15 gm Q15M PRN PO DECREASED GLUCOSE; Start 05/26/17 at 01:00 Glucose (Glutose) 22.5 gm Q15M PRN PO DECREASED GLUCOSE; Start 05/26/17 at 01: 00 Dextrose (D50w Syringe) 25 ml Q15M PRN IV DECREASED GLUCOSE; Start 05/26/17 at 01:00 Dextrose (D50w Syringe) 50 ml Q15M PRN IV DECREASED GLUCOSE; Start 05/26/17 at 01:00 Glucagon (Glucagen) 1 mg Q15M PRN IM DECREASED GLUCOSE; Start 05/26/17 at 01:00 Glucose (Glutose) 15 gm Q15M PRN BUCCAL DECREASED GLUCOSE; Start 05/26/17 at 01 :00 Morphine Sulfate (morphine) 1 mg Q4H PRN IV PAIN LEVEL 7-10 Last administered on 06/01/17 16:50; Admin Dose 1 MG; Start 05/26/17 at 14:00 Potassium Chloride (Klor-Con 20) 20 meq BID PO Last administered on 06/01/17 08:35; Admin Dose 20 MEQ; Start 05/26/17 at 21:00 Diagnostic Test (Pha) 1 ea 1 ea 02 XX Last administered on 05/30/17 02:35; Admin Dose 1 EA; Start 05/27/17 at 02:00 Cefepime HCl (Maxipime 1gm/50 ml (Pmx)) 50 ml @ 100 mls/hr Q12 IVPB Last administered on 06/01/17 08:36; Admin Dose 100 MLS/HR; Start 05/28/17 at 21:00 Pantoprazole (Protonix Tab) 40 mg BID@06,18 PO Last administered on 06/01/17 17:52; Admin Dose 40 MG; Start 05/28/17 at 18:00 Rifaximin (Xifaxan) 550 mg BID PO Last administered on 06/01/17 08:35; Admin Dose 550 MG; Start 05/28/17 at 21:00 Ondansetron HCl 4 mg 4 mg Q6H PRN IV NAUSEA AND/OR VOMITING Last administered on 05/30/17 18:40; Admin Dose 4 MG; Start 05/28/17 at 22:30 Caspofungin/ Sodium Chloride (Cancidas/NS) 250 ml @ 250 mls/hr Q24H IVPB Last administered on 06/01/17 16:48; Admin Dose 250 MLS/HR; Start 05/30/17 at 16:00 Insulin Glargine (Lantus) 15 unit DAILY@20 SC Last administered on 05/31/17 20 :31; Admin Dose 15 UNIT; Start 05/30/17 at 20:00 Lactulose (Enulose) 26.7 gm BID PO Last administered on 06/01/17 08:36; Admin Dose 26.7 GM; Start 05/31/17 at 21:00 Thiamine HCl (Vitamin B1) 100 mg DAILY PO Last administered on 06/01/17 08:35 ; Admin Dose 100 MG; Start 06/01/17 at 09:00 Multivitamins/ Minerals (Theragran-M) 1 tab DAILY PO Last administered on 08:35; Admin Dose 1 TAB; Start 06/01/17 at 09:00 KATHARINA GLEASON MD Jun 01, 2017 19:43
--- NOTE | 2017-06-01 20:30 | RADRPT ---
PROCEDURE: Indium-111 labeled white blood cell scan CLINICAL INDICATION: 56 -year-old patient with fever and leukocytosis. TECHNIQUE: Following the intravenous injection of 0.34 mCi of Indium-111 labeled white blood cells , whole body anterior and posterior planar images were obtained 24 hours post injection. COMPARISON: No prior indium scans. FINDINGS: No abnormal areas of increased tracer activity are seen in the spine. Faint symmetrical uptake is seen in both kidneys. No definite abnormal areas of increased activity are seen in the study, including visualized portion s of the head and neck, chest, abdomen, pelvis and upper and lower. Physiologic uptake is noted in the small liver and spleen. IMPRESSION: 1. Mild symmetrical increased uptake in both kidneys likely due to inflammatory/infectious process. 2. No abnormal areas of increased activity in the spine. 3. Small liver. 4. No other definite abnormal focal areas of increased activity. RPTAT: QQ .Aant Stone MD, MD Date Time Electronically viewed and signed by .Anat Stone MD, on 06/01/2017 20:29 .L/
[2017-06-01 20:31] LABS: ABNORMAL IP MESSAGE 1; BASOPHILS % 0.5 % (0.0-2.0); EOSINOPHILS # 0.2 10^3/ul (0.0-0.5); EOSINOPHILS % 2.6 % (0.0-7.0); HEMATOCRIT 22.6 % (42.0-52.0); HEMOGLOBIN 7.2 g/dl (14.0-18.0); LYMPHOCYTES # 0.7 10^3/ul (0.8-2.9); LYMPHOCYTES % 11.7 % (15.0-51.0); MEAN CORPUSCULAR HEMOGLOBIN 27.7 pg (29.0-33.0); MEAN CORPUSCULAR HGB CONC 31.9 g/dl (32.0-37.0); MEAN CORPUSCULAR VOLUME 86.9 fl (82.0-101.0); MEAN PLATELET VOLUME 11.4 fl (7.4-10.4); MONOCYTE # 0.6 10^3/ul (0.3-0.9); MONOCYTES % 9.2 % (0.0-11.0); NEUTROPHILS % 75.2 % (39.0-77.0); PLATELET COUNT 92 10^3/UL (140-415); POSITIVE DIFF @See below; WHITE BLOOD COUNT 6.1 10^3/ul (4.8-10.8)
[2017-06-01] MEDS: INSULIN GLARGINE [LANtus] 3 ML PEN SC SCH (20:47)
[2017-06-02] VITALS (12 sets, daily range): BP systolic 88–110; BP diastolic 52–64; PULSE 90–102; RESP 17–19
[2017-06-02] MEDS: morphine 2 MG INJ IV PRN ×5 (00:20→22:00)
[2017-06-02] MEDS: ACCU-CHEK XX SCH (02:00)
[2017-06-02] MEDS: PANTOPRAZOLE (EC) 40 MG TAB PO SCH ×2 (05:31→17:45)
[2017-06-02 07:00] LABS: ABNORMAL IP MESSAGE 1; BASOPHILS % 0.6 % (0.0-2.0); EOSINOPHILS # 0.2 10^3/ul (0.0-0.5); EOSINOPHILS % 3.2 % (0.0-7.0); HEMATOCRIT 20.1 % (42.0-52.0); LYMPHOCYTES # 0.6 10^3/ul (0.8-2.9); LYMPHOCYTES % 13.3 % (15.0-51.0); MEAN CORPUSCULAR HEMOGLOBIN 27.1 pg (29.0-33.0); MEAN CORPUSCULAR HGB CONC 31.8 g/dl (32.0-37.0); MEAN CORPUSCULAR VOLUME 85.2 fl (82.0-101.0); MEAN PLATELET VOLUME 11.7 fl (7.4-10.4); MONOCYTE # 0.6 10^3/ul (0.3-0.9); MONOCYTES % 12.3 % (0.0-11.0); NEUTROPHILS % 70.2 % (39.0-77.0); PLATELET COUNT 80 10^3/UL (140-415); POSITIVE DIFF @See below; RED BLOOD COUNT 2.36 10^6/ul (4.70-6.10); RED CELL DISTRIBUTION WIDTH 19.4 % (11.5-14.5); WHITE BLOOD COUNT 4.7 10^3/ul (4.8-10.8)
[2017-06-02 07:45] LABS: CALCIUM 7.8 mg/dl (8.4-10.2); CREATININE 0.49 mg/dl (0.61-1.24); POTASSIUM 4.3 mmol/L (3.5-5.1)
[2017-06-02 08:01] LABS: HEMOGLOBIN 6.4 g/dl (14.0-18.0)
[2017-06-02 08:02] LABS: PATH REVIEW? YES
[2017-06-02] MEDS: CEFEPIME 1GM/50 ML (PMX) 50 ML IVPB SCH ×2 (08:17→20:53)
[2017-06-02] MEDS: THIAMINE 100 MG TAB PO SCH (08:17)
[2017-06-02] MEDS: RIFAXIMIN 550 MG TAB PO SCH ×2 (08:17→20:52)
[2017-06-02] MEDS: MULTIVITAMINS/MINERALS TAB PO SCH (08:17)
[2017-06-02] MEDS: POTASSIUM CHLORIDE (SR) 20 MEQ TAB PO SCH ×2 (08:17→20:52)
[2017-06-02] MEDS: LACTULOSE 30ML CUP PO SCH ×2 (08:20→20:53)
[2017-06-02] MEDS: INSULIN ASPART [NOVOLOG] 3 ML PEN SC SCH ×3 (08:37→17:40)
[2017-06-02] MEDS: Insulin NOVOLOG SS MODERATE Algorithm (SS with meals and bedtime) SC SCH ×4 (08:42→20:58)
[2017-06-02] MEDS ORDERED: SOD CHLORIDE 0.9% 250 ML IV* ONE (10:06)
[2017-06-02] MEDS ORDERED: ACETAMINOPHEN 325 MG TAB PO SCH (10:30)
[2017-06-02] MEDS ORDERED: DIPHENHYDRAMINE 50 MG INJ IV SCH (10:30)
--- NOTE | 2017-06-02 11:05 | PN ---
Date/Time of Note Date/Time of Note DATE: 06/02/17 TIME: 10:59 Assessment/Plan VTE Prophylaxis VTE Prophylaxis Intervention: contraindicated Lines/Catheters IV [facility]from [facility] Saline Lock Urinary Cath still in place: No Assessment/Plan Assessment/Plan Physical exam Constitutional: alert, oriented Respiratory: diminished breath sounds Cardiovascular: regular rate and rhythm Abdomen: soft, non tender A/P 1 Severe sepsis with bacteremia and fungemia, rule out endocarditis, rule out discitis, poss other etiologies.WBC scan essentially neg 2. End-stage liver disease, status post transjugular intrahepatic portosystemic shunt (TIPS) procedure. 3 Toxic Encephalopathy 3. Anemia now with possible GI bleed 4. hs pancreatitis 5. Hx alcohol abuse 6. Hx esophageal varices 7. SIRS 8. S/p portal shunt 2016 9. S/p cardiac stenting 3 stents PLAN: - Transfuse 1 unit prbc, Spoke to Dr Jimenes; possible EGD tmw - CBC Q 12 and PPI - On Cefepime and Caspofungin - pending lumbar and cervical spine MRI - C/W Lactulose - F/U GI and I.D Subjective 24 Hr Interval Summary Free Text/Dictation Hb dropped 6.4, pt says he did not see his stool and no report per nurses Exam/Review of Systems Vital Signs Vitals Vital Signs Date Time Temp Pulse Resp B/P Pulse Ox O2 Delivery O2 Flow Rate FiO2 06/02/17 08:56 94 06/02/17 07:32 98.5 18 90/52 97 Intake and Output 06/01/17 06/01/17 06/02/17 15:00 23:00 07:00 Intake Total 50 ml 1300 ml 600 ml Output Total 600 ml 500 ml Balance 50 ml 700 ml 100 ml Results Result Diagram: 06/02/17 0610 06/02/17 0610 Results 24 hrs Laboratory Tests Test 06/01/17 12:35 06/01/17 17:39 06/01/17 20:11 06/01/17 20:16 Bedside Glucose 205 217 233 H White Blood Count 6.1 Red Blood Count 2.60 L Hemoglobin 7.2 L Hematocrit 22.6 L Mean Corpuscular Volume 86.9 Mean Corpuscular Hemoglobin 27.7 L Mean Corpuscular Hemoglobin Concent 31.9 L Red Cell Distribution Width 19.0 H Platelet Count 92 L Mean Platelet Volume 11.4 H Neutrophils % 75.2 Lymphocytes % 11.7 L Monocytes % 9.2 Eosinophils % 2.6 Basophils % 0.5 Nucleated Red Blood Cells % 0.0 Neutrophils # (Manual) 5 Lymphocytes # 0.7 L Monocytes # 0.6 Eosinophils # 0.2 Basophils # 0.0 Nucleated Red Blood Cells # 0.0 Test 06/02/17 02:30 06/02/17 06:10 06/02/17 07:57 Bedside Glucose 315 H 217 White Blood Count 4.7 #L Red Blood Count 2.36 L Hemoglobin 6.4 *L Hematocrit 20.1 L Mean Corpuscular Volume 85.2 Mean Corpuscular Hemoglobin 27.1 L Mean Corpuscular Hemoglobin Concent 31.8 L Red Cell Distribution Width 19.4 H Platelet Count 80 L Mean Platelet Volume 11.7 H Neutrophils % 70.2 Lymphocytes % 13.3 L Monocytes % 12.3 H Eosinophils % 3.2 Basophils % 0.6 Nucleated Red Blood Cells % 0.0 Neutrophils # (Manual) 3 Lymphocytes # 0.6 L Monocytes # 0.6 Eosinophils # 0.2 Basophils # 0.0 Nucleated Red Blood Cells # 0.0 Pathologist Review (Hematology) YES Sodium Level 131 L Potassium Level 4.3 Chloride Level 101 Carbon Dioxide Level 21 Anion Gap 13 Blood Urea Nitrogen 9 Creatinine 0.49 L Glucose Level 228 H Calcium Level 7.8 L Medications Medications Current Medications Lorazepam (Ativan) 1 mg Q6H PRN IV anxiety/agitation Last administered on t 16:55; Admin Dose 1 MG; Start 05/24/17 at 11:00 Miscellaneous Information 1 ea NOTE XX ; Start 05/26/17 at 01:00 Glucose (Glutose) 15 gm Q15M PRN PO DECREASED GLUCOSE; Start 05/26/17 at 01:00 Glucose (Glutose) 22.5 gm Q15M PRN PO DECREASED GLUCOSE; Start 05/26/17 at 01: 00 Dextrose (D50w Syringe) 25 ml Q15M PRN IV DECREASED GLUCOSE; Start 05/26/17 at 01:00 Dextrose (D50w Syringe) 50 ml Q15M PRN IV DECREASED GLUCOSE; Start 05/26/17 at 01:00 Glucagon (Glucagen) 1 mg Q15M PRN IM DECREASED GLUCOSE; Start 05/26/17 at 01:00 Glucose (Glutose) 15 gm Q15M PRN BUCCAL DECREASED GLUCOSE; Start 05/26/17 at 01 :00 Morphine Sulfate (morphine) 1 mg Q4H PRN IV PAIN LEVEL 7-10 Last administered on 06/02/17 05:32; Admin Dose 1 MG; Start 05/26/17 at 14:00 Potassium Chloride (Klor-Con 20) 20 meq BID PO Last administered on 06/02/17 08:17; Admin Dose 20 MEQ; Start 05/26/17 at 21:00 Diagnostic Test (Pha) 1 ea 1 ea 02 XX Last administered on 05/30/17 02:35; Admin Dose 1 EA; Start 05/27/17 at 02:00 Cefepime HCl (Maxipime 1gm/50 ml (Pmx)) 50 ml @ 100 mls/hr Q12 IVPB Last administered on 06/02/17 08:17; Admin Dose 100 MLS/HR; Start 05/28/17 at 21:00 Pantoprazole (Protonix Tab) 40 mg BID@06,18 PO Last administered on 06/02/17 05:31; Admin Dose 40 MG; Start 05/28/17 at 18:00 Rifaximin (Xifaxan) 550 mg BID PO Last administered on 06/02/17 08:17; Admin Dose 550 MG; Start 05/28/17 at 21:00 Ondansetron HCl 4 mg 4 mg Q6H PRN IV NAUSEA AND/OR VOMITING Last administered on 05/30/17 18:40; Admin Dose 4 MG; Start 05/28/17 at 22:30 Caspofungin/ Sodium Chloride (Cancidas/NS) 250 ml @ 250 mls/hr Q24H IVPB Last administered on 06/01/17 16:48; Admin Dose 250 MLS/HR; Start 05/30/17 at 16:00 Insulin Glargine (Lantus) 15 unit DAILY@20 SC Last administered on 06/01/17 20 :47; Admin Dose 15 UNIT; Start 05/30/17 at 20:00 Lactulose (Enulose) 26.7 gm BID PO Last administered on 06/02/17 08:20; Admin Dose 26.7 GM; Start 05/31/17 at 21:00 Thiamine HCl (Vitamin B1) 100 mg DAILY PO Last administered on 06/02/17 08:17 ; Admin Dose 100 MG; Start 06/01/17 at 09:00 Multivitamins/ Minerals (Theragran-M) 1 tab DAILY PO Last administered on 08:17; Admin Dose 1 TAB; Start 06/01/17 at 09:00 Acetaminophen (Tylenol Tab) 650 mg ONCE PO ; Start 06/02/17 at 10:30; Stop 06/02 at 19:00 Diphenhydramine HCl (Benadryl) 25 mg ONCE IV ; Start 06/02/17 at 10:30; Stop at 19:00 KATHARINA GLEASON MD Jun 02, 2017 11:05
[2017-06-02 12:27] LABS: ABNORMAL IP MESSAGE 1; BASOPHILS % 0.7 % (0.0-2.0); EOSINOPHILS # 0.1 10^3/ul (0.0-0.5); EOSINOPHILS % 2.2 % (0.0-7.0); HEMATOCRIT 21.7 % (42.0-52.0); LYMPHOCYTES # 0.6 10^3/ul (0.8-2.9); LYMPHOCYTES % 10.1 % (15.0-51.0); MEAN CORPUSCULAR HEMOGLOBIN 27.8 pg (29.0-33.0); MEAN CORPUSCULAR HGB CONC 31.8 g/dl (32.0-37.0); MEAN CORPUSCULAR VOLUME 87.5 fl (82.0-101.0); MONOCYTE # 0.7 10^3/ul (0.3-0.9); MONOCYTES % 11.8 % (0.0-11.0); NEUTROPHILS % 74.7 % (39.0-77.0); PLATELET COUNT 86 10^3/UL (140-415); POSITIVE DIFF @See below; RED BLOOD COUNT 2.48 10^6/ul (4.70-6.10); RED CELL DISTRIBUTION WIDTH 19.1 % (11.5-14.5); WHITE BLOOD COUNT 5.8 10^3/ul (4.8-10.8)
[2017-06-02 12:29] LABS: HEMOGLOBIN 6.9 g/dl (14.0-18.0)
--- NOTE | 2017-06-02 15:38 | CONS ---
Date/Time of Note Date/Time of Note DATE: 06/02/17 TIME: 15:36 Assessment/Plan Assessment/Plan Chief Complaint/Hosp Course No acute changes overnight. Patient is alert feels better, looks comfortable. Temperature 98.6 pulse 100 respirations 18 blood pressure 96/64 saturation 98% on room air WBC 5.8 H&H 6.9 and 21.7 platelets 56 neutrophils 74.7 BUN 9 creatinine 0.49 Diagnostics: WBC labeled nuclear scalp revealed mild symmetrical increased uptake in both kidneys likely due to inflammatory/infectious process. No other definite abnormal focal areas of increased activity. No abnormal areas of increased activity in the spine Microbiology: Urine culture growing Cris glabrata and Cris albicans blood culture growing oxacillin sensitive staph aureus and yeast Antimicrobials: Cancidas, Cefepime PHYSICAL EXAMINATION: GENERAL: This is a wasted, well-developed middle-aged Portuguese man who is awake, in no distress. HEENT: Head atraumatic, normocephalic. Sclerae anicteric. Buccal mucosa dry. NECK: Supple. CHEST: Rise symmetrical. Breath sounds diminished at the bases. HEART: S1, S2. ABDOMEN: Soft, bowel sounds present. ASSESSMENT: 1. Severe sepsis with bacteremia and fungemia ?etiology 2. End-stage liver disease, status post transjugular intrahepatic portosystemic shunt (TIPS) procedure. 3. History of cardiac stents. 4. Anemia and thrombocytopenia. 5. Resolving encephalopathy. 6. Diabetes. 7. UTI==>yeast PLAN: Clinically stable, on appropriate antimicrobials, will order CT abdomen and pelvis followed WBC scan findings, monitor H&H, follow gastroenterology recommendations dw staff/pt Problems: Consultation Date/Type/Reason Admit Date/Time May 24, 2017 at 05:42 Initial Consult Date 05/24/17 Type of Consultation: ID Exam/Review of Systems Vital Signs Vitals Vital Signs Date Time Temp Pulse Resp B/P Pulse Ox O2 Delivery O2 Flow Rate FiO2 06/02/17 15:31 98.6 100 18 96/64 98 Intake and Output 06/01/17 06/01/17 06/02/17 15:00 23:00 07:00 Intake Total 50 ml 1300 ml 600 ml Output Total 600 ml 500 ml Balance 50 ml 700 ml 100 ml Results Result Diagram: 06/02/17 1159 06/02/17 0610 Results 24 hrs Laboratory Tests Test 06/01/17 17:39 06/01/17 20:11 06/01/17 20:16 06/02/17 02:30 Bedside Glucose 217 233 H 315 H White Blood Count 6.1 Red Blood Count 2.60 L Hemoglobin 7.2 L Hematocrit 22.6 L Mean Corpuscular Volume 86.9 Mean Corpuscular Hemoglobin 27.7 L Mean Corpuscular Hemoglobin Concent 31.9 L Red Cell Distribution Width 19.0 H Platelet Count 92 L Mean Platelet Volume 11.4 H Neutrophils % 75.2 Lymphocytes % 11.7 L Monocytes % 9.2 Eosinophils % 2.6 Basophils % 0.5 Nucleated Red Blood Cells % 0.0 Neutrophils # (Manual) 5 Lymphocytes # 0.7 L Monocytes # 0.6 Eosinophils # 0.2 Basophils # 0.0 Nucleated Red Blood Cells # 0.0 Test 06/02/17 06:10 06/02/17 07:57 06/02/17 11:59 06/02/17 12:24 White Blood Count 4.7 #L 5.8 # Red Blood Count 2.36 L 2.48 L Hemoglobin 6.4 *L 6.9 *L Hematocrit 20.1 L 21.7 L Mean Corpuscular Volume 85.2 87.5 Mean Corpuscular Hemoglobin 27.1 L 27.8 L Mean Corpuscular Hemoglobin Concent 31.8 L 31.8 L Red Cell Distribution Width 19.4 H 19.1 H Platelet Count 80 L 86 L Mean Platelet Volume 11.7 H 11.0 H Neutrophils % 70.2 74.7 Lymphocytes % 13.3 L 10.1 L Monocytes % 12.3 H 11.8 H Eosinophils % 3.2 2.2 Basophils % 0.6 0.7 Nucleated Red Blood Cells % 0.0 0.0 Neutrophils # (Manual) 3 4 Lymphocytes # 0.6 L 0.6 L Monocytes # 0.6 0.7 Eosinophils # 0.2 0.1 Basophils # 0.0 0.0 Nucleated Red Blood Cells # 0.0 0.0 Pathologist Review (Hematology) YES Sodium Level 131 L Potassium Level 4.3 Chloride Level 101 Carbon Dioxide Level 21 Anion Gap 13 Blood Urea Nitrogen 9 Creatinine 0.49 L Glucose Level 228 H Calcium Level 7.8 L Bedside Glucose 217 233 H Medications Medications Current Medications Lorazepam (Ativan) 1 mg Q6H PRN IV anxiety/agitation Last administered on 16:55; Admin Dose 1 MG; Start 05/24/17 at 11:00 Miscellaneous Information 1 ea NOTE XX ; Start 05/26/17 at 01:00 Glucose (Glutose) 15 gm Q15M PRN PO DECREASED GLUCOSE; Start 05/26/17 at 01:00 Glucose (Glutose) 22.5 gm Q15M PRN PO DECREASED GLUCOSE; Start 05/26/17 at 01: 00 Dextrose (D50w Syringe) 25 ml Q15M PRN IV DECREASED GLUCOSE; Start 05/26/17 at 01:00 Dextrose (D50w Syringe) 50 ml Q15M PRN IV DECREASED GLUCOSE; Start 05/26/17 at 01:00 Glucagon (Glucagen) 1 mg Q15M PRN IM DECREASED GLUCOSE; Start 05/26/17 at 01:00 Glucose (Glutose) 15 gm Q15M PRN BUCCAL DECREASED GLUCOSE; Start 05/26/17 at 01 :00 Morphine Sulfate (morphine) 1 mg Q4H PRN IV PAIN LEVEL 7-10 Last administered on 06/02/17 11:39; Admin Dose 1 MG; Start 05/26/17 at 14:00 Potassium Chloride (Klor-Con 20) 20 meq BID PO Last administered on 06/02/17 08:17; Admin Dose 20 MEQ; Start 05/26/17 at 21:00 Diagnostic Test (Pha) 1 ea 1 ea 02 XX Last administered on 05/30/17 02:35; Admin Dose 1 EA; Start 05/27/17 at 02:00 Cefepime HCl (Maxipime 1gm/50 ml (Pmx)) 50 ml @ 100 mls/hr Q12 IVPB Last administered on 06/02/17 08:17; Admin Dose 100 MLS/HR; Start 05/28/17 at 21:00 Pantoprazole (Protonix Tab) 40 mg BID@06,18 PO Last administered on 06/02/17 05:31; Admin Dose 40 MG; Start 05/28/17 at 18:00 Rifaximin (Xifaxan) 550 mg BID PO Last administered on 06/02/17 08:17; Admin Dose 550 MG; Start 05/28/17 at 21:00 Ondansetron HCl 4 mg 4 mg Q6H PRN IV NAUSEA AND/OR VOMITING Last administered on 05/30/17 18:40; Admin Dose 4 MG; Start 05/28/17 at 22:30 Caspofungin/ Sodium Chloride (Cancidas/NS) 250 ml @ 250 mls/hr Q24H IVPB Last administered on 06/01/17 16:48; Admin Dose 250 MLS/HR; Start 05/30/17 at 16:00 Lactulose (Enulose) 26.7 gm BID PO Last administered on 06/02/17 08:20; Admin Dose 26.7 GM; Start 05/31/17 at 21:00 Thiamine HCl (Vitamin B1) 100 mg DAILY PO Last administered on 06/02/17 08:17 ; Admin Dose 100 MG; Start 06/01/17 at 09:00 Multivitamins/ Minerals (Theragran-M) 1 tab DAILY PO Last administered on 08:17; Admin Dose 1 TAB; Start 06/01/17 at 09:00 Acetaminophen (Tylenol Tab) 650 mg ONCE PO Last administered on 06/02/17 14:16 ; Admin Dose 650 MG; Start 06/02/17 at 10:30; Stop 06/02/17 at 19:00 Diphenhydramine HCl (Benadryl) 25 mg ONCE IV Last administered on 06/02/17 14: 16; Admin Dose 25 MG; Start 06/02/17 at 10:30; Stop 06/02/17 at 19:00 Insulin Glargine (Lantus) 18 unit DAILY@20 SC ; Start 06/02/17 at 20:00 YOLANDA BANKS NP Jun 02, 2017 15:37
[2017-06-02] MEDS: CASPOFUNGIN 50 MG in SOD CHLORIDE 0.9% 250 ML IVPB SCH (18:33)
[2017-06-02] MEDS: INSULIN GLARGINE [LANtus] 3 ML PEN SC SCH (20:57)
--- NOTE | 2017-06-02 21:33 | CONS ---
Date/Time of Note Date/Time of Note DATE: 06/02/17 TIME: 21:30 Assessment/Plan Assessment/Plan Additional Assessment/Plan Additional Assessment/Plan 1. Cirrhosis of liver 2. Hepatic encephalopathy mild 3. Status post coronary artery stent 6 weeks ago 4. Status post TIPS for recurrent ascites. 5. Emesis 6. Epistaxis Plan Continue rifaximin and lactulose. TIPS a cause of his worsening encephalopathy Avoid all kinds of sedative Reglan for possible diabetic gastroparesis Ambulate with the help of physical therapy EGD for anemia,vomiting Consultation Date/Type/Reason Admit Date/Time May 24, 2017 at 05:42 Initial Consult Date 05/24/17 Type of Consultation: ID [id number] HR Interval Summary Free Text/Dictation epistaxis nausea vomiting better Exam/Review of Systems Vital Signs Vitals Vital Signs Date Time Temp Pulse Resp B/P Pulse Ox O2 Delivery O2 Flow Rate FiO2 06/02/17 20:22 102 06/02/17 19:52 98.5 17 96/62 97 Intake and Output 06/01/17 06/01/17 06/02/17 15:00 23:00 07:00 Intake Total 50 ml 1300 ml 600 ml Output Total 600 ml 500 ml Balance 50 ml 700 ml 100 ml Exam Constitutional: alert, oriented, well developed Psych: nl mood/affect, no complaints Head: atraumatic, normocephalic Eyes: EOMI, PERRL, nl conjunctiva, nl lids, nl sclera ENMT: nl external ears & nose, nl lips & teeth, nl nasal mucosa & septum Neck: non-tender, supple Respiratory: clear to auscultation, normal air movement Cardiovascular: nl pulses, regular rate and rhythm Gastrointestinal: nl liver, spleen, non-tender, soft Musculoskeletal: nl extremities to inspection, nl gait and stance Extremities: normal pulses Neurological: [employer] II-XII intact, nl mental status, nl speech, nl strength Skin: nl turgor, No rash or lesions Lymph: nl lymph nodes Results Result Diagram: 06/02/17 1159 06/02/17 0610 Results 24 hrs Laboratory Tests Test 06/02/17 02:30 06/02/17 06:10 06/02/17 07:57 06/02/17 11:59 Bedside Glucose 315 H 217 White Blood Count 4.7 #L 5.8 # Red Blood Count 2.36 L 2.48 L Hemoglobin 6.4 *L 6.9 *L Hematocrit 20.1 L 21.7 L Mean Corpuscular Volume 85.2 87.5 Mean Corpuscular Hemoglobin 27.1 L 27.8 L Mean Corpuscular Hemoglobin Concent 31.8 L 31.8 L Red Cell Distribution Width 19.4 H 19.1 H Platelet Count 80 L 86 L Mean Platelet Volume 11.7 H 11.0 H Neutrophils % 70.2 74.7 Lymphocytes % 13.3 L 10.1 L Monocytes % 12.3 H 11.8 H Eosinophils % 3.2 2.2 Basophils % 0.6 0.7 Nucleated Red Blood Cells % 0.0 0.0 Neutrophils # (Manual) 3 4 Lymphocytes # 0.6 L 0.6 L Monocytes # 0.6 0.7 Eosinophils # 0.2 0.1 Basophils # 0.0 0.0 Nucleated Red Blood Cells # 0.0 0.0 Pathologist Review (Hematology) YES Sodium Level 131 L Potassium Level 4.3 Chloride Level 101 Carbon Dioxide Level 21 Anion Gap 13 Blood Urea Nitrogen 9 Creatinine 0.49 L Glucose Level 228 H Calcium Level 7.8 L Test 06/02/17 12:24 06/02/17 17:21 06/02/17 20:10 Bedside Glucose 233 H 353 H 203 Medications Medications Current Medications Lorazepam (Ativan) 1 mg Q6H PRN IV anxiety/agitation Last administered on t 16:55; Admin Dose 1 MG; Start 05/24/17 at 11:00 Miscellaneous Information 1 ea NOTE XX ; Start 05/26/17 at 01:00 Glucose (Glutose) 15 gm Q15M PRN PO DECREASED GLUCOSE; Start 05/26/17 at 01:00 Glucose (Glutose) 22.5 gm Q15M PRN PO DECREASED GLUCOSE; Start 05/26/17 at 01: 00 Dextrose (D50w Syringe) 25 ml Q15M PRN IV DECREASED GLUCOSE; Start 05/26/17 at 01:00 Dextrose (D50w Syringe) 50 ml Q15M PRN IV DECREASED GLUCOSE; Start 05/26/17 at 01:00 Glucagon (Glucagen) 1 mg Q15M PRN IM DECREASED GLUCOSE; Start 05/26/17 at 01:00 Glucose (Glutose) 15 gm Q15M PRN BUCCAL DECREASED GLUCOSE; Start 05/26/17 at 01 :00 Morphine Sulfate (morphine) 1 mg Q4H PRN IV PAIN LEVEL 7-10 Last administered on 06/02/17 17:45; Admin Dose 1 MG; Start 05/26/17 at 14:00 Potassium Chloride (Klor-Con 20) 20 meq BID PO Last administered on 06/02/17 20:52; Admin Dose 20 MEQ; Start 05/26/17 at 21:00 Diagnostic Test (Pha) 1 ea 1 ea 02 XX Last administered on 05/30/17 02:35; Admin Dose 1 EA; Start 05/27/17 at 02:00 Cefepime HCl (Maxipime 1gm/50 ml (Pmx)) 50 ml @ 100 mls/hr Q12 IVPB Last administered on 06/02/17 20:53; Admin Dose 100 MLS/HR; Start 05/28/17 at 21:00 Pantoprazole (Protonix Tab) 40 mg BID@06,18 PO Last administered on 06/02/17 17:45; Admin Dose 40 MG; Start 05/28/17 at 18:00 Rifaximin (Xifaxan) 550 mg BID PO Last administered on 06/02/17 20:52; Admin Dose 550 MG; Start 05/28/17 at 21:00 Ondansetron HCl 4 mg 4 mg Q6H PRN IV NAUSEA AND/OR VOMITING Last administered on 05/30/17 18:40; Admin Dose 4 MG; Start 05/28/17 at 22:30 Caspofungin/ Sodium Chloride (Cancidas/NS) 250 ml @ 250 mls/hr Q24H IVPB Last administered on 06/02/17 18:33; Admin Dose 250 MLS/HR; Start 05/30/17 at 16:00 Lactulose (Enulose) 26.7 gm BID PO Last administered on 06/02/17 20:53; Admin Dose 26.7 GM; Start 05/31/17 at 21:00 Thiamine HCl (Vitamin B1) 100 mg DAILY PO Last administered on 06/02/17 08:17 ; Admin Dose 100 MG; Start 06/01/17 at 09:00 Multivitamins/ Minerals (Theragran-M) 1 tab DAILY PO Last administered on 08:17; Admin Dose 1 TAB; Start 06/01/17 at 09:00 Insulin Glargine (Lantus) 18 unit DAILY@20 SC Last administered on 06/02/17t 20 :57; Admin Dose 18 UNIT; Start 06/02/17 at 20:00 CONOR CLINE MD Jun 02, 2017 21:32
[2017-06-02 22:24] LABS: ABNORMAL IP MESSAGE 1; BASOPHILS % 0.6 % (0.0-2.0); EOSINOPHILS # 0.2 10^3/ul (0.0-0.5); EOSINOPHILS % 2.7 % (0.0-7.0); HEMATOCRIT 23.3 % (42.0-52.0); HEMOGLOBIN 7.5 g/dl (14.0-18.0); LYMPHOCYTES # 0.7 10^3/ul (0.8-2.9); LYMPHOCYTES % 10.5 % (15.0-51.0); MEAN CORPUSCULAR HEMOGLOBIN 27.5 pg (29.0-33.0); MEAN CORPUSCULAR HGB CONC 32.2 g/dl (32.0-37.0); MEAN CORPUSCULAR VOLUME 85.3 fl (82.0-101.0); MEAN PLATELET VOLUME 11.8 fl (7.4-10.4); MONOCYTE # 0.8 10^3/ul (0.3-0.9); MONOCYTES % 12.3 % (0.0-11.0); NEUTROPHILS % 73.3 % (39.0-77.0); PLATELET COUNT 87 10^3/UL (140-415); POSITIVE DIFF @See below; RED BLOOD COUNT 2.73 10^6/ul (4.70-6.10); RED CELL DISTRIBUTION WIDTH 18.7 % (11.5-14.5); WHITE BLOOD COUNT 6.4 10^3/ul (4.8-10.8)
[2017-06-03] VITALS (17 sets, daily range): BP systolic 77–138; BP diastolic 52–72; PULSE 88–101; RESP 14–19
[2017-06-03] MEDS: morphine 2 MG INJ IV PRN ×4 (01:14→22:09)
[2017-06-03] MEDS: ACCU-CHEK XX SCH (05:38)
[2017-06-03] MEDS: PANTOPRAZOLE (EC) 40 MG TAB PO SCH ×2 (05:42→18:00)
[2017-06-03 07:02] LABS: ABNORMAL IP MESSAGE 1; BASOPHIL # 0.1 10^3/ul (0.0-0.1); BASOPHILS % 0.9 % (0.0-2.0); EOSINOPHILS # 0.1 10^3/ul (0.0-0.5); EOSINOPHILS % 2.4 % (0.0-7.0); HEMATOCRIT 24.9 % (42.0-52.0); LYMPHOCYTES # 0.6 10^3/ul (0.8-2.9); LYMPHOCYTES % 10.8 % (15.0-51.0); MEAN CORPUSCULAR HEMOGLOBIN 28.3 pg (29.0-33.0); MEAN CORPUSCULAR HGB CONC 32.1 g/dl (32.0-37.0); MEAN PLATELET VOLUME 11.6 fl (7.4-10.4); MONOCYTE # 0.6 10^3/ul (0.3-0.9); MONOCYTES % 10.8 % (0.0-11.0); NEUTROPHILS % 74.5 % (39.0-77.0); PLATELET COUNT 79 10^3/UL (140-415); POSITIVE DIFF @See below; RED BLOOD COUNT 2.83 10^6/ul (4.70-6.10); WHITE BLOOD COUNT 5.4 10^3/ul (4.8-10.8)
[2017-06-03] MEDS: INSULIN ASPART [NOVOLOG] 3 ML PEN SC SCH ×4 (07:20→18:03)
[2017-06-03] MEDS: Insulin NOVOLOG SS MODERATE Algorithm (SS with meals and bedtime) SC SCH ×5 (07:20→22:15)
[2017-06-03 07:22] LABS: CALCIUM 7.7 mg/dl (8.4-10.2); CREATININE 0.66 mg/dl (0.61-1.24); POTASSIUM 4.9 mmol/L (3.5-5.1)
[2017-06-03] MEDS ORDERED: PROPOFOL 20 ML ONE (08:37)
[2017-06-03] MEDS ORDERED: EPHEDrine SULFATE 50 MG/5 ML SYG ONE ×2 (08:37→09:02)
[2017-06-03] MEDS ORDERED: PHENYLephrine (100 MCG/ML) 5ML SYG ONE ×2 (08:37→09:13)
[2017-06-03] MEDS ORDERED: LIDOCAINE 2% (SDV) 5 ML INJ ONE (08:37)
[2017-06-03] MEDS: THIAMINE 100 MG TAB PO SCH ×2 (09:00→10:23)
[2017-06-03] MEDS: POTASSIUM CHLORIDE (SR) 20 MEQ TAB PO SCH ×3 (09:00→20:31)
[2017-06-03] MEDS: CEFEPIME 1GM/50 ML (PMX) 50 ML IVPB SCH ×3 (09:00→20:31)
[2017-06-03] MEDS: LACTULOSE 30ML CUP PO SCH ×3 (09:00→20:30)
[2017-06-03] MEDS: RIFAXIMIN 550 MG TAB PO SCH ×3 (09:00→20:30)
[2017-06-03] MEDS: MULTIVITAMINS/MINERALS TAB PO SCH ×2 (09:00→10:23)
--- NOTE | 2017-06-03 09:08 | OPPN ---
Date/Time of Note Date/Time of Note DATE: 06/03/17 TIME: 09:07 Operative Report Preoperative Diagnosis GI bleed Postoperative Diagnosis GI bleeding Operation/Procedure Performed Congestive gastropathy Severe gastroparesis No varicose vein identified No blood seen Provider: CONOR CLINE MD Estimated blood loss: none Transfusion Required: no Specimen: none Grafts/Implants: none Complications: no CONOR CLINE MD Jun 03, 2017 09:08
--- NOTE | 2017-06-03 09:34 | GILP ---
DATE OF PROCEDURE: PROCEDURE PERFORMED: EGD. INDICATIONS FOR PROCEDURE: A 56-year-old male undergoing this procedure for severe drop in hematocrit requiring blood transfusion. He is known to have cirrhosis of the liver. At times the blood is seen in the mouth. The purpose of this procedure is to evaluate the upper GI tract and find out the source of bleeding. The patient has been complaining of constant nausea, vomiting. The risks of the procedure, related complications, anesthetic risk, alternatives was totally discussed with the patient. Also with the and informed consent was obtained. The patient was brought to the GI lab, sedated by the anesthesiologist. After optimum sedation, the scope was passed with much ease into the esophagus. The distal esophageal varicose vein were not seen. The stomach mucosa revealed congestive gastropathy and there was undigested food particle in the distal part of the body of the stomach and antrum covering the entire pylorus. Retroversion done. No gastric varicose vein identified. No altered blood or fresh blood was seen. Scope was straightened out and removed with good patient tolerance. IMPRESSION: 1. Esophageal varicose vein had completely subsided after TIP procedure. 2. No gastric varicose veins seen. 3. Congestive gastropathy present. 4. No evidence of bleeding. 5. Severe gastroparesis. PLAN: Is to start the patient on Reglan. Continue rifaximin and lactulose for his encephalopathy which is precipitated by the TIP procedure. If he continues to bleed, then we will have to look into his nose, which might be the cause of his drop in hematocrit. The epistaxis might be the cause of drop in his hematocrit. Dictated By: Abelardo Jimenes MD /darren/candido /Document#: [id number] [facility]
[2017-06-03] MEDS: METOCLOPRAMIDE 10 MG INJ IV SCH ×3 (09:40→18:00)
--- NOTE | 2017-06-03 10:03 | OPPN ---
Date/Time of Note Date/Time of Note DATE: 06/03/17 TIME: 10:02 Operative Report Anesthesia Type: MAC Transfusion Required: CONOR Conrad MD Jun 03, 2017 10:03
[2017-06-03] MEDS ORDERED: BARIUM SULF 2% 450 ML BTL (BERRY SMOOTHIE) PO ONE (12:00)
--- NOTE | 2017-06-03 12:05 | PN ---
Date/Time of Note Date/Time of Note DATE: 06/03/17 TIME: 12:05 Assessment/Plan VTE Prophylaxis VTE Prophylaxis Intervention: SCD's VTE Contraindication Reason: bleeding Lines/Catheters IV Catheter Type (from Nrsg): Saline Lock Urinary Cath still in place: No Assessment/Plan Chief Complaint/Hosp Course Physical exam Constitutional: alert, oriented Respiratory: diminished breath sounds Cardiovascular: regular rate and rhythm Abdomen: soft, non tender A/P 1 Severe sepsis with bacteremia and fungemia, rule out endocarditis, rule out discitis, poss other etiologies.WBC scan essentially neg 2. End-stage liver disease, status post transjugular intrahepatic portosystemic shunt (TIPS) procedure. 3 Toxic Encephalopathy 3. Anemia S/P EGD on 06/03 with gastroparesis 4. hs pancreatitis 5. Hx alcohol abuse 6. Hx esophageal varices 7. SIRS 8. S/p portal shunt 2017 9. S/p cardiac stenting 3 stents PLAN: - On PPI/Reglan - On Cefepime and Caspofungin - pending lumbar and cervical spine MRI today - CT CAP to be done in am with contrast - C/W Lactulose - F/U GI and I.D - Labs in am Problems: Subjective 24 Hr Interval Summary Free Text/Dictation s/p EGD today with gastroparesis No varices, no active bleed Hypotensive ( given propofol) improved Exam/Review of Systems Vital Signs Vitals Vital Signs Date Time Temp Pulse Resp B/P Pulse Ox O2 Delivery O2 Flow Rate FiO2 06/03/17 11:38 98.4 107 17 97/60 100 06/03/17 09:12 Room Air Intake and Output 06/02/17 06/02/17 06/03/17 15:00 23:00 07:00 Intake Total 50 ml 1370 ml 500 ml Output Total 350 ml 400 ml Balance 50 ml 1020 ml 100 ml Results Result Diagram: 06/03/17 0620 06/03/17 0620 Results 24 hrs Laboratory Tests Test 06/02/17 12:24 06/02/17 17:21 06/02/17 20:10 06/02/17 20:30 Bedside Glucose 233 H 353 H 203 Stool Occult Blood POSITIVE Test 06/02/17 22:04 06/03/17 01:21 06/03/17 06:06 06/03/17 06:20 White Blood Count 6.4 5.4 Red Blood Count 2.73 L 2.83 L Hemoglobin 7.5 L 8.0 L Hematocrit 23.3 L 24.9 L Mean Corpuscular Volume 85.3 88.0 Mean Corpuscular Hemoglobin 27.5 L 28.3 L Mean Corpuscular Hemoglobin Concent 32.2 32.1 Red Cell Distribution Width 18.7 H 19.0 H Platelet Count 87 L 79 L Mean Platelet Volume 11.8 H 11.6 H Neutrophils % 73.3 74.5 Lymphocytes % 10.5 L 10.8 L Monocytes % 12.3 H 10.8 Eosinophils % 2.7 2.4 Basophils % 0.6 0.9 Nucleated Red Blood Cells % 0.0 0.0 Neutrophils # (Manual) 5 4 Lymphocytes # 0.7 L 0.6 L Monocytes # 0.8 0.6 Eosinophils # 0.2 0.1 Basophils # 0.0 0.1 Nucleated Red Blood Cells # 0.0 0.0 Calcium Level 7.7 L 7.7 L Bedside Glucose 267 H Lab Scanned Report BLOOD TRANSFUSION Sodium Level 131 L Potassium Level 4.9 Chloride Level 105 Carbon Dioxide Level 21 Anion Gap 10 Blood Urea Nitrogen 10 Creatinine 0.66 Glucose Level 206 Test 06/03/17 07:53 06/03/17 10:13 Bedside Glucose 191 195 Medications Medications Current Medications Lorazepam (Ativan) 1 mg Q6H PRN IV anxiety/agitation Last administered on t 16:55; Admin Dose 1 MG; Start 05/24/17 at 11:00 Miscellaneous Information 1 ea NOTE XX ; Start 05/26/17 at 01:00 Glucose (Glutose) 15 gm Q15M PRN PO DECREASED GLUCOSE; Start 05/26/17 at 01:00 Glucose (Glutose) 22.5 gm Q15M PRN PO DECREASED GLUCOSE; Start 05/26/17 at 01: 00 Dextrose (D50w Syringe) 25 ml Q15M PRN IV DECREASED GLUCOSE; Start 05/26/17 at 01:00 Dextrose (D50w Syringe) 50 ml Q15M PRN IV DECREASED GLUCOSE; Start 05/26/17 at 01:00 Glucagon (Glucagen) 1 mg Q15M PRN IM DECREASED GLUCOSE; Start 05/26/17 at 01:00 Glucose (Glutose) 15 gm Q15M PRN BUCCAL DECREASED GLUCOSE; Start 05/26/17 at 01 :00 Morphine Sulfate (morphine) 1 mg Q4H PRN IV PAIN LEVEL 7-10 Last administered on 06/03/17 01:14; Admin Dose 1 MG; Start 05/26/17 at 14:00 Potassium Chloride (Klor-Con 20) 20 meq BID PO Last administered on 06/03/17 10:23; Admin Dose 20 MEQ; Start 05/26/17 at 21:00 Diagnostic Test (Pha) 1 ea 1 ea 02 XX Last administered on 05/30/17 02:35; Admin Dose 1 EA; Start 05/27/17 at 02:00 Cefepime HCl (Maxipime 1gm/50 ml (Pmx)) 50 ml @ 100 mls/hr Q12 IVPB Last administered on 06/03/17 10:19; Admin Dose 100 MLS/HR; Start 05/28/17 at 21:00 Pantoprazole (Protonix Tab) 40 mg BID@06,18 PO Last administered on 06/03/17 05:42; Admin Dose 40 MG; Start 05/28/17 at 18:00 Rifaximin (Xifaxan) 550 mg BID PO Last administered on 06/03/17 10:23; Admin Dose 550 MG; Start 05/28/17 at 21:00 Ondansetron HCl 4 mg 4 mg Q6H PRN IV NAUSEA AND/OR VOMITING Last administered on 05/30/17 18:40; Admin Dose 4 MG; Start 05/28/17 at 22:30 Caspofungin/ Sodium Chloride (Cancidas/NS) 250 ml @ 250 mls/hr Q24H IVPB Last administered on 06/02/17 18:33; Admin Dose 250 MLS/HR; Start 05/30/17 at 16:00 Lactulose (Enulose) 26.7 gm BID PO Last administered on 06/03/17 10:19; Admin Dose 26.7 GM; Start 05/31/17 at 21:00 Thiamine HCl (Vitamin B1) 100 mg DAILY PO Last administered on 06/03/17 10:23 ; Admin Dose 100 MG; Start 06/01/17 at 09:00 Multivitamins/ Minerals (Theragran-M) 1 tab DAILY PO Last administered on 10:23; Admin Dose 1 TAB; Start 06/01/17 at 09:00 Insulin Glargine (Lantus) 18 unit DAILY@20 SC Last administered on 06/02/17t 20 :57; Admin Dose 18 UNIT; Start 06/02/17 at 20:00 Metoclopramide HCl (Reglan) 10 mg Q6 IV ; Start 06/03/17 at 09:40 KATHARINA GLEASON MD Jun 03, 2017 12:05
[2017-06-03] MEDS: CASPOFUNGIN 50 MG in SOD CHLORIDE 0.9% 250 ML IVPB SCH (17:15)
--- NOTE | 2017-06-03 17:48 | PN ---
DATE: 06/03/2017 SUBJECTIVE DATA: Patient is lying comfortably in bed. He is sleeping status post an EGD. No fevers. Temperature 98.4, pulse 97, respirations 17, blood pressure 97/60, saturation 100 on room air. LABORATORY AND DIAGNOSTIC DATA: WBC 5.4, platelets 79; neutrophils 74.5. BUN 10, creatinine 0.66. Microbiology: Blood culture on admission grew Staph aureus, and Cris glabrata. Urine culture grew Cris albicans and glabrata. Repeat blood cultures on May 31 negative. Diagnostics: WBC scan revealed no increased activity in this spine, mild symmetric increased uptake in both kidneys likely due to inflammatory/infectious process. 2D echo revealed no evidence of vegetations. EGD findings revealed congestive gastropathy, severe gastroparesis, no varicose vein identified and no blood seen. ANTIMICROBIALS: Patient is on Cancidas and cefepime. OBJECTIVE DATA: GENERAL: This is a well-developed, wasted middle-aged [place] man who is alert, in no distress. HEENT: Head atraumatic, normocephalic. Sclerae anicteric. Buccal mucosa pink. NECK: Supple. CHEST: Rise symmetrical. Breath sounds clear. HEART: S1, S2. ABDOMEN: Soft, bowel sounds present. EXTREMITIES: Without cyanosis. ASSESSMENT: 1. Status post sepsis. 2. Oxacillin-sensitive Staph aureus bacteremia with fungemia, possibly secondary to urinary tract infection. 3. Urinary tract infection. 4. End-stage liver disease status post TIPS. 5. Anemia and thrombocytopenia status post EGD. Report noted. 6. Diabetes. 7. Status post encephalopathy. 8. Coronary artery disease status post cardiac stents. PLAN: The patient remains stable. We will order CT of the abdomen and pelvis to follow on abnormal WBC scan findings. Continue present care for now. Follow recommendations of consultants. Patient may need MEG. Dictated By: Sai Dobbs NP /darren/teofilo /Document#: [id number]
[2017-06-03] MEDS: INSULIN GLARGINE [LANtus] 3 ML PEN SC SCH (20:43)
[2017-06-04] VITALS (12 sets, daily range): BP systolic 91–104; BP diastolic 54–67; PULSE 92–101; RESP 17–19
[2017-06-04] MEDS: METOCLOPRAMIDE 10 MG INJ IV SCH ×5 (00:37→23:48)
[2017-06-04] MEDS: ACCU-CHEK XX SCH ×2 (02:00→23:49)
[2017-06-04] MEDS: morphine 2 MG INJ IV PRN ×4 (02:56→21:03)
[2017-06-04] MEDS: PANTOPRAZOLE (EC) 40 MG TAB PO SCH ×2 (05:17→20:53)
[2017-06-04] MEDS: Insulin NOVOLOG SS MODERATE Algorithm (SS with meals and bedtime) SC SCH ×4 (08:12→20:46)
[2017-06-04] MEDS: INSULIN ASPART [NOVOLOG] 3 ML PEN SC SCH ×3 (08:12→20:44)
[2017-06-04] MEDS: MULTIVITAMINS/MINERALS TAB PO SCH (08:23)
[2017-06-04] MEDS: THIAMINE 100 MG TAB PO SCH (08:23)
[2017-06-04] MEDS: LACTULOSE 30ML CUP PO SCH ×4 (08:23→20:48)
[2017-06-04] MEDS: POTASSIUM CHLORIDE (SR) 20 MEQ TAB PO SCH ×2 (08:23→20:48)
[2017-06-04] MEDS: RIFAXIMIN 550 MG TAB PO SCH ×2 (08:24→20:48)
[2017-06-04] MEDS: CEFEPIME 1GM/50 ML (PMX) 50 ML IVPB SCH (09:49)
--- NOTE | 2017-06-04 16:12 | PN ---
Date/Time of Note Date/Time of Note DATE: 06/04/17 TIME: 16:07 Assessment/Plan VTE Prophylaxis VTE Prophylaxis Intervention: contraindicated, SCD's VTE Contraindication Reason: bleeding Lines/Catheters IV Catheter Type (from Nrs): Saline Lock Urinary Cath still in place: No Assessment/Plan Chief Complaint/Hosp Course Physical exam Constitutional: alert, oriented Respiratory: diminished breath sounds Cardiovascular: regular rate and rhythm Abdomen: soft, non tender A/P 1 Severe sepsis with Staph bacteremia and fungemia, rule out endocarditis, rule out discitis, poss other etiologies.CT A+P pending 2. End-stage liver disease, status post transjugular intrahepatic portosystemic shunt (TIPS) procedure. 3 Toxic Encephalopathy 4 DM uncontrolled 3. Anemia S/P EGD on 06/03 with gastroparesis 4. hs pancreatitis 5. Hx alcohol abuse 6. Hx esophageal varices 7. SIRS 8. S/p portal shunt 2017 9. S/p cardiac stenting 3 stents PLAN: - On PPI/Reglan - c/w Cefepime and Caspofungin - pending lumbar and cervical spine MRI today - CT A+P to be done today - Increase Lantus to 26 and increase Novolog to 12 tid with meals - C/W Lactulose - F/U GI and I.D - GI/DVT prophylaxis Problems: Subjective 24 Hr Interval Summary Free Text/Dictation Pt is concerned about the imaging done and wants to go home Spoke to him in details the needs to have it done and explained need the necessity of staying in hospital with iv abx for bacterimia and fungemia and need for finding the source of infection Exam/Review of Systems Vital Signs Vitals Vital Signs Date Time Temp Pulse Resp B/P Pulse Ox O2 Delivery O2 Flow Rate FiO2 06/04/17 15:43 98.6 98 19 97/67 100 06/03/17 09:12 Room Air Intake and Output 06/03/17 06/03/17 06/04/17 15:00 23:00 07:00 Intake Total 50 ml 900 ml 600 ml Output Total 400 ml 450 ml Balance 50 ml 500 ml 150 ml Results Result Diagram: 06/03/17 0620 06/03/17 0620 Results 24 hrs Laboratory Tests Test 06/03/17 17:49 06/03/17 20:20 06/04/17 00:44 06/04/17 08:02 Bedside Glucose 286 H 240 H 128 288 H Test 06/04/17 11:47 Bedside Glucose 194 Medications Medications Current Medications Lorazepam (Ativan) 1 mg Q6H PRN IV anxiety/agitation Last administered on 16:55; Admin Dose 1 MG; Start 05/24/17 at 11:00 Miscellaneous Information 1 ea NOTE XX ; Start 05/26/17 at 01:00 Glucose (Glutose) 15 gm Q15M PRN PO DECREASED GLUCOSE; Start 05/26/17 at 01:00 Glucose (Glutose) 22.5 gm Q15M PRN PO DECREASED GLUCOSE; Start 05/26/17 at 01: 00 Dextrose (D50w Syringe) 25 ml Q15M PRN IV DECREASED GLUCOSE; Start 05/26/17 at 01:00 Dextrose (D50w Syringe) 50 ml Q15M PRN IV DECREASED GLUCOSE; Start 05/26/17 at 01:00 Glucagon (Glucagen) 1 mg Q15M PRN IM DECREASED GLUCOSE; Start 05/26/17 at 01:00 Glucose (Glutose) 15 gm Q15M PRN BUCCAL DECREASED GLUCOSE; Start 05/26/17 at 01 :00 Morphine Sulfate (morphine) 1 mg Q4H PRN IV PAIN LEVEL 7-10 Last administered on 06/04/17 14:51; Admin Dose 1 MG; Start 05/26/17 at 14:00 Potassium Chloride (Klor-Con 20) 20 meq BID PO Last administered on 06/04/17 08:23; Admin Dose 20 MEQ; Start 05/26/17 at 21:00 Diagnostic Test (Pha) 1 ea 1 ea 02 XX Last administered on 05/30/17 02:35; Admin Dose 1 EA; Start 05/27/17 at 02:00 Cefepime HCl (Maxipime 1gm/50 ml (Pmx)) 50 ml @ 100 mls/hr Q12 IVPB Last administered on 06/04/17 09:49; Admin Dose 100 MLS/HR; Start 05/28/17 at 21:00 Pantoprazole (Protonix Tab) 40 mg BID@06,18 PO Last administered on 06/04/17 05:17; Admin Dose 40 MG; Start 05/28/17 at 18:00 Rifaximin (Xifaxan) 550 mg BID PO Last administered on 06/04/17 08:24; Admin Dose 550 MG; Start 05/28/17 at 21:00 Ondansetron HCl 4 mg 4 mg Q6H PRN IV NAUSEA AND/OR VOMITING Last administered on 05/30/17 18:40; Admin Dose 4 MG; Start 05/28/17 at 22:30 Caspofungin/ Sodium Chloride (Cancidas/NS) 250 ml @ 250 mls/hr Q24H IVPB Last administered on 06/03/17 17:15; Admin Dose 250 MLS/HR; Start 05/30/17 at 16:00 Lactulose (Enulose) 26.7 gm BID PO Last administered on 06/04/17 12:43; Admin Dose 26.7 GM; Start 05/31/17 at 21:00 Thiamine HCl (Vitamin B1) 100 mg DAILY PO Last administered on 06/04/17 08:23 ; Admin Dose 100 MG; Start 06/01/17 at 09:00 Multivitamins/ Minerals (Theragran-M) 1 tab DAILY PO Last administered on 08:23; Admin Dose 1 TAB; Start 06/01/17 at 09:00 Insulin Glargine (Lantus) 18 unit DAILY@20 SC Last administered on 06/03/17 20 :43; Admin Dose 18 UNIT; Start 06/02/17 at 20:00 Metoclopramide HCl (Reglan) 10 mg Q6 IV Last administered on 06/04/17 05:17; Admin Dose 10 MG; Start 06/03/17 at 09:40 KATHARINA GLEASON MD Jun 04, 2017 16:11
[2017-06-04] MEDS: CASPOFUNGIN 50 MG in SOD CHLORIDE 0.9% 250 ML IVPB SCH (16:24)
--- NOTE | 2017-06-04 16:42 | CONS ---
Date/Time of Note Date/Time of Note DATE: 06/04/17 TIME: 16:39 Assessment/Plan Assessment/Plan Chief Complaint/Hosp Course No acute changes overnight. Patient is alert, looks comfortable, wants to go home, no fevers. Diagnostics: WBC labeled nuclear scalp revealed mild symmetrical increased uptake in both kidneys likely due to inflammatory/infectious process. No other definite abnormal focal areas of increased activity. No abnormal areas of increased activity in the spine Microbiology: Urine culture growing Cris glabrata and Cris albicans blood culture growing oxacillin sensitive staph aureus and yeast Antimicrobials: Cancidas, Cefepime PHYSICAL EXAMINATION: GENERAL: This is a wasted, well-developed middle-aged [place] man who is awake, in no distress. HEENT: Head atraumatic, normocephalic. Sclerae anicteric. Buccal mucosa dry. NECK: Supple. CHEST: Rise symmetrical. Breath sounds diminished at the bases. HEART: S1, S2. ABDOMEN: Soft, bowel sounds present. ASSESSMENT: 1. S/p sepsis with bacteremia and fungemia 2. End-stage liver disease, status post transjugular intrahepatic portosystemic shunt (TIPS) procedure. 3. History of cardiac stents. 4. Anemia and thrombocytopenia. 5. Resolving encephalopathy. 6. Diabetes. 7. UTI==>yeast PLAN: Clinically stable, pending CT abdomen to evaluate WBC scan findings, continue abx, consider PICC, may need MEG. Change Cefepime to Rocephin nikita staff/pt Problems: Consultation Date/Type/Reason Admit Date/Time May 24, 2017 at 05:42 Initial Consult Date 05/24/17 Type of Consultation: ID Exam/Review of Systems Vital Signs Vitals Vital Signs Date Time Temp Pulse Resp B/P Pulse Ox O2 Delivery O2 Flow Rate FiO2 06/04/17 16:09 96 06/04/17 15:43 98.6 19 97/67 100 06/03/17 09:12 Room Air Intake and Output 06/03/17 06/03/17 06/04/17 15:00 23:00 07:00 Intake Total 50 ml 900 ml 600 ml Output Total 400 ml 450 ml Balance 50 ml 500 ml 150 ml Results Result Diagram: 06/03/17 0620 06/03/17 0620 Results 24 hrs Laboratory Tests Test 06/03/17 17:49 06/03/17 20:20 06/04/17 00:44 06/04/17 08:02 Bedside Glucose 286 H 240 H 128 288 H Test 06/04/17 11:47 Bedside Glucose 194 Medications Medications Current Medications Lorazepam (Ativan) 1 mg Q6H PRN IV anxiety/agitation Last administered on 16:55; Admin Dose 1 MG; Start 05/24/17 at 11:00 Miscellaneous Information 1 ea NOTE XX ; Start 05/26/17 at 01:00 Glucose (Glutose) 15 gm Q15M PRN PO DECREASED GLUCOSE; Start 05/26/17 at 01:00 Glucose (Glutose) 22.5 gm Q15M PRN PO DECREASED GLUCOSE; Start 05/26/17 at 01: 00 Dextrose (D50w Syringe) 25 ml Q15M PRN IV DECREASED GLUCOSE; Start 05/26/17 at 01:00 Dextrose (D50w Syringe) 50 ml Q15M PRN IV DECREASED GLUCOSE; Start 05/26/17 at 01:00 Glucagon (Glucagen) 1 mg Q15M PRN IM DECREASED GLUCOSE; Start 05/26/17 at 01:00 Glucose (Glutose) 15 gm Q15M PRN BUCCAL DECREASED GLUCOSE; Start 05/26/17 at 01 :00 Morphine Sulfate (morphine) 1 mg Q4H PRN IV PAIN LEVEL 7-10 Last administered on 06/04/17 14:51; Admin Dose 1 MG; Start 05/26/17 at 14:00 Potassium Chloride (Klor-Con 20) 20 meq BID PO Last administered on 06/04/17 08:23; Admin Dose 20 MEQ; Start 05/26/17 at 21:00 Diagnostic Test (Pha) 1 ea 1 ea 02 XX Last administered on 05/30/17 02:35; Admin Dose 1 EA; Start 05/27/17 at 02:00 Cefepime HCl (Maxipime 1gm/50 ml (Pmx)) 50 ml @ 100 mls/hr Q12 IVPB Last administered on 06/04/17 09:49; Admin Dose 100 MLS/HR; Start 05/28/17 at 21:00 Pantoprazole (Protonix Tab) 40 mg BID@06,18 PO Last administered on 06/04/17 05:17; Admin Dose 40 MG; Start 05/28/17 at 18:00 Rifaximin (Xifaxan) 550 mg BID PO Last administered on 06/04/17 08:24; Admin Dose 550 MG; Start 05/28/17 at 21:00 Ondansetron HCl 4 mg 4 mg Q6H PRN IV NAUSEA AND/OR VOMITING Last administered on 05/30/17 18:40; Admin Dose 4 MG; Start 05/28/17 at 22:30 Caspofungin/ Sodium Chloride (Cancidas/NS) 250 ml @ 250 mls/hr Q24H IVPB Last administered on 06/04/17 16:24; Admin Dose 250 MLS/HR; Start 05/30/17 at 16:00 Lactulose (Enulose) 26.7 gm BID PO Last administered on 06/04/17 12:43; Admin Dose 26.7 GM; Start 05/31/17 at 21:00 Thiamine HCl (Vitamin B1) 100 mg DAILY PO Last administered on 06/04/17 08:23 ; Admin Dose 100 MG; Start 06/01/17 at 09:00 Multivitamins/ Minerals (Theragran-M) 1 tab DAILY PO Last administered on 08:23; Admin Dose 1 TAB; Start 06/01/17 at 09:00 Metoclopramide HCl (Reglan) 10 mg Q6 IV Last administered on 06/04/17 05:17; Admin Dose 10 MG; Start 06/03/17 at 09:40 Insulin Glargine (Lantus) 25 unit DAILY@20 SC ; Start 06/04/17 at 20:00 YOLANDA BANKS NP Jun 04, 2017 16:41
--- NOTE | 2017-06-04 19:24 | RADRPT ---
PROCEDURE: MRI lumbar spine with and without contrast CLINICAL INDICATION: Back pain. Hepatic encephalopathy. TECHNIQUE: An MRI of the lumbar spine was performed on a 1.5 khoa scanner utilizing the followin g sequences: pre and post contrast sagittal and axial T1 weighted, sagittal and axial T2 weighted, a nd sagittal T2 weighted with fat saturation. 10 ml of Magnevist were given intravenously without com plication. COMPARISON: None. FINDINGS: There is a normal lordosis of the lumbar spine. No vertebral body subluxation is evident. The verteb ral bodies are normal in height and signal intensity. The conus medullaris is visible at the L1 lev el, and is normal in appearance. The postcontrast images show no abnormal enhancement. T12 - L1: The disk is normal in appearance. The central canal and foramina are adequately patent. L1 - L2: The disk is normal in appearance. Mild bilateral foraminal narrowing. The central canal an d foramina are otherwise adequately patent. L2 - L3: The disk is normal in appearance. Mild to moderate facet joint arthropathy . The central canal and foramina are adequately patent. L3 - L4: Disk desiccation and mild loss of disk height with circumferential disk bulging and anteri or endplate spurring. Superimposed broad-based central disk extrusion measuring 7 mm in AP dimensio n with extension into the right subarticular recess with impingement upon the descending right L4 ne rve root. Mild right foraminal stenosis without definite exiting nerve root impingement. The left ne ural foramen and central canal are patent. Moderate bilateral hypertrophic facet joint arthropathy and facet joint effusions. L4 - L5: Disk desiccation and mild loss of disk height with circumferential disk bulging and superi mposed broad-based central disk protrusion measuring 3 mm in AP dimension.. Bilateral subarticular recess narrowing without significant foraminal narrowing. The central canal and foramina are adequat [place] patent. L5 - S1: Marked disk desiccation loss of disk height, disk osteophyte complex formation moderate to severe left foraminal stenosis. No central canal or right foraminal stenosis. Mild facet joint art hropathy. IMPRESSION: 1. Multilevel degenerative disk bulging and facet joint arthropathy with a degenerative spondylosis /enthesopathy most pronounced from L3-L4 through L5-S1. No evidence of the abnormal postcontrast enh ancement or soft tissue abnormality. 2. Broad-based central disk extrusion at L3-L4 extending into the right subarticular recess with im pingement upon the descending right L4 nerve root. Mild right foraminal stenosis without definite e xiting nerve root impingement. No left foraminal or central canal stenosis. 3. Broad-based central disk protrusion at L4-L5 with mild bilateral subarticular recess narrowing w ithout significant foraminal or central canal stenosis. 4. Degenerative discogenic changes at L5-S1 mild facet joint arthropathy. Moderate to severe left foraminal stenosis without significant central canal or right foraminal stenosis. RPTAT:AAJJ Physician Deejay Date Time Electronically viewed and signed by Physician Deejay on 06/04/2017 19:24 WILDA/
[2017-06-04] MEDS: INSULIN GLARGINE [LANtus] 3 ML PEN SC SCH (20:44)
[2017-06-04] MEDS: CEFTRIAXONE 1 GM/50 ML (PMX) 50 ML IVPB SCH (20:53)
[2017-06-05] VITALS (13 sets, daily range): BP systolic 87–105; BP diastolic 54–83; PULSE 85–103; RESP 18–19
[2017-06-05] MEDS: morphine 2 MG INJ IV PRN ×5 (01:04→21:24)
[2017-06-05] MEDS: METOCLOPRAMIDE 10 MG INJ IV SCH ×3 (05:03→17:20)
[2017-06-05] MEDS: PANTOPRAZOLE (EC) 40 MG TAB PO SCH ×2 (05:03→17:22)
[2017-06-05 07:30] LABS: ABNORMAL IP MESSAGE 1; BASOPHILS % 0.5 % (0.0-2.0); EOSINOPHILS # 0.1 10^3/ul (0.0-0.5); EOSINOPHILS % 1.4 % (0.0-7.0); HEMATOCRIT 23.3 % (42.0-52.0); HEMOGLOBIN 7.6 g/dl (14.0-18.0); LYMPHOCYTES # 0.6 10^3/ul (0.8-2.9); LYMPHOCYTES % 6.8 % (15.0-51.0); MEAN CORPUSCULAR HEMOGLOBIN 28.4 pg (29.0-33.0); MEAN CORPUSCULAR HGB CONC 32.6 g/dl (32.0-37.0); MEAN CORPUSCULAR VOLUME 86.9 fl (82.0-101.0); MEAN PLATELET VOLUME 12.2 fl (7.4-10.4); MONOCYTES % 12.3 % (0.0-11.0); NEUTROPHILS % 78.6 % (39.0-77.0); PLATELET COUNT 95 10^3/UL (140-415); POSITIVE DIFF @See below; RED BLOOD COUNT 2.68 10^6/ul (4.70-6.10); RED CELL DISTRIBUTION WIDTH 19.7 % (11.5-14.5); WHITE BLOOD COUNT 8.1 10^3/ul (4.8-10.8)
[2017-06-05 07:59] LABS: ALBUMIN 2.1 g/dl (3.3-4.9); ALBUMIN/GLOBULIN RATIO 0.55; BILIRUBIN,INDIRECT 1.5 mg/dl (0-1.1); BILIRUBIN,TOTAL 1.5 mg/dl (0.2-1.3); CREATININE 0.54 mg/dl (0.61-1.24); POTASSIUM 4.6 mmol/L (3.5-5.1); TOTAL PROTEIN 5.9 g/dl (6.1-8.1)
[2017-06-05] MEDS: THIAMINE 100 MG TAB PO SCH (08:08)
[2017-06-05] MEDS: RIFAXIMIN 550 MG TAB PO SCH ×2 (08:08→20:28)
[2017-06-05] MEDS: POTASSIUM CHLORIDE (SR) 20 MEQ TAB PO SCH ×2 (08:08→20:28)
[2017-06-05] MEDS: LACTULOSE 30ML CUP PO SCH ×2 (08:08→20:29)
[2017-06-05] MEDS: Insulin NOVOLOG SS MODERATE Algorithm (SS with meals and bedtime) SC SCH ×4 (08:31→20:35)
[2017-06-05] MEDS: INSULIN ASPART [NOVOLOG] 3 ML PEN SC SCH ×3 (08:32→17:28)
[2017-06-05 09:12] LABS: CALCIUM 7.7 mg/dl (8.4-10.2)
[2017-06-05] MEDS: MULTIVITAMINS/MINERALS TAB PO SCH (09:49)
[2017-06-05 11:38] LABS: HEMATOCRIT 27.1 % (42.0-52.0); HEMOGLOBIN 8.8 g/dl (14.0-18.0)
--- NOTE | 2017-06-05 15:06 | CONS ---
Date/Time of Note Date/Time of Note DATE: 06/05/17 TIME: 15:05 Assessment/Plan Assessment/Plan Chief Complaint/Hosp Course No acute changes overnight. Patient is alert, looks comfortable, no fevers. Diagnostics: WBC labeled nuclear scalp revealed mild symmetrical increased uptake in both kidneys likely due to inflammatory/infectious process. No other definite abnormal focal areas of increased activity. No abnormal areas of increased activity in the spine Microbiology: Urine culture growing Cris glabrata and Cris albicans blood culture growing oxacillin sensitive staph aureus and yeast Antimicrobials: Cancidas, Rocephin PHYSICAL EXAMINATION: GENERAL: This is a wasted, well-developed middle-aged [place] man who is awake, in no distress. HEENT: Head atraumatic, normocephalic. Sclerae anicteric. Buccal mucosa dry. NECK: Supple. CHEST: Rise symmetrical. Breath sounds diminished at the bases. HEART: S1, S2. ABDOMEN: Soft, bowel sounds present. ASSESSMENT: 1. S/p sepsis with bacteremia and fungemia 2. End-stage liver disease, status post transjugular intrahepatic portosystemic shunt (TIPS) procedure. 3. History of cardiac stents. 4. Anemia and thrombocytopenia. 5. Resolving encephalopathy. 6. Diabetes. 7. UTI==>yeast PLAN: Clinically stable, pending CT abdomen to evaluate WBC scan findings, continue abx, consider PICC, may need MEG. dw staff/pt Problems: Consultation Date/Type/Reason Admit Date/Time May 24, 2017 at 05:42 Initial Consult Date 05/24/17 Type of Consultation: ID Exam/Review of Systems Vital Signs Vitals Vital Signs Date Time Temp Pulse Resp B/P Pulse Ox O2 Delivery O2 Flow Rate FiO2 06/05/17 12:14 97 06/05/17 11:01 98.0 19 100/63 97 06/03/17 09:12 Room Air Intake and Output 06/04/17 06/04/17 06/05/17 15:00 23:00 07:00 Intake Total 780 ml 500 ml Output Total 500 ml 500 ml Balance 280 ml 0 ml Results Result Diagram: 06/05/17 1054 06/05/17 0607 Results 24 hrs Laboratory Tests Test 06/04/17 20:39 06/05/17 06:07 06/05/17 10:54 06/05/17 11:29 Bedside Glucose 174 172 White Blood Count 8.1 # Red Blood Count 2.68 L Hemoglobin 7.6 L 8.8 L Hematocrit 23.3 L 27.1 L Mean Corpuscular Volume 86.9 Mean Corpuscular Hemoglobin 28.4 L Mean Corpuscular Hemoglobin Concent 32.6 Red Cell Distribution Width 19.7 H Platelet Count 95 #L Mean Platelet Volume 12.2 H Neutrophils % 78.6 H Lymphocytes % 6.8 L Monocytes % 12.3 H Eosinophils % 1.4 Basophils % 0.5 Nucleated Red Blood Cells % 0.0 Neutrophils # (Manual) 6 Lymphocytes # 0.6 L Monocytes # 1.0 H Eosinophils # 0.1 Basophils # 0.0 Nucleated Red Blood Cells # 0.0 Sodium Level 130 L Potassium Level 4.6 Chloride Level 102 Carbon Dioxide Level 19 L Anion Gap 14 Blood Urea Nitrogen 10 Creatinine 0.54 L Glucose Level 184 Calcium Level 7.7 L Total Bilirubin 1.5 H Direct Bilirubin 0.00 Indirect Bilirubin 1.5 H Aspartate Amino Transf (AST/SGOT) 106 H Alanine Aminotransferase (ALT/SGPT) 96 H Alkaline Phosphatase 256 H Total Protein 5.9 L Albumin 2.1 L Globulin 3.80 H Albumin/Globulin Ratio 0.55 Medications Medications Current Medications Lorazepam (Ativan) 1 mg Q6H PRN IV anxiety/agitation Last administered on t 16:55; Admin Dose 1 MG; Start 05/24/17 at 11:00 Miscellaneous Information 1 ea NOTE XX ; Start 05/26/17 at 01:00 Glucose (Glutose) 15 gm Q15M PRN PO DECREASED GLUCOSE; Start 05/26/17 at 01:00 Glucose (Glutose) 22.5 gm Q15M PRN PO DECREASED GLUCOSE; Start 05/26/17 at 01: 00 Dextrose (D50w Syringe) 25 ml Q15M PRN IV DECREASED GLUCOSE; Start 05/26/17 at 01:00 Dextrose (D50w Syringe) 50 ml Q15M PRN IV DECREASED GLUCOSE; Start 05/26/17 at 01:00 Glucagon (Glucagen) 1 mg Q15M PRN IM DECREASED GLUCOSE; Start 05/26/17 at 01:00 Glucose (Glutose) 15 gm Q15M PRN BUCCAL DECREASED GLUCOSE; Start 05/26/17 at 01 :00 Morphine Sulfate (morphine) 1 mg Q4H PRN IV PAIN LEVEL 7-10 Last administered on 06/05/17 13:34; Admin Dose 1 MG; Start 05/26/17 at 14:00 Potassium Chloride (Klor-Con 20) 20 meq BID PO Last administered on 06/05/17 08:08; Admin Dose 20 MEQ; Start 05/26/17 at 21:00 Diagnostic Test (Pha) (Accu-Chek) 1 ea 02 XX Last administered on 05/30/17 02: 35; Admin Dose 1 EA; Start 05/27/17 at 02:00 Pantoprazole (Protonix Tab) 40 mg BID@06,18 PO Last administered on 06/05/17 05:03; Admin Dose 40 MG; Start 05/28/17 at 18:00 Rifaximin (Xifaxan) 550 mg BID PO Last administered on 06/05/17 08:08; Admin Dose 550 MG; Start 05/28/17 at 21:00 Ondansetron HCl 4 mg 4 mg Q6H PRN IV NAUSEA AND/OR VOMITING Last administered on 05/30/17 18:40; Admin Dose 4 MG; Start 05/28/17 at 22:30 Caspofungin/ Sodium Chloride (Cancidas/NS) 250 ml @ 250 mls/hr Q24H IVPB Last administered on 06/04/17 16:24; Admin Dose 250 MLS/HR; Start 05/30/17 at 16:00 Lactulose (Enulose) 26.7 gm BID PO Last administered on 06/05/17 08:08; Admin Dose 26.7 GM; Start 05/31/17 at 21:00 Thiamine HCl (Vitamin B1) 100 mg DAILY PO Last administered on 06/05/17 08:08 ; Admin Dose 100 MG; Start 06/01/17 at 09:00 Multivitamins/ Minerals (Theragran-M) 1 tab DAILY PO Last administered on 09:49; Admin Dose 1 TAB; Start 06/01/17 at 09:00 Metoclopramide HCl (Reglan) 10 mg Q6 IV Last administered on 06/05/17 11:30; Admin Dose 10 MG; Start 06/03/17 at 09:40 Insulin Glargine 25 unit 25 unit DAILY@20 SC Last administered on 06/04/17 20: 44; Admin Dose 25 UNIT; Start 06/04/17 at 20:00 Ceftriaxone Sodium (Rocephin) 50 ml @ 100 mls/hr Q24H IVPB Last administered on 06/04/17 20:53; Admin Dose 100 MLS/HR; Start 06/04/17 at 17:00 YOLANDA BANKS NP Jun 05, 2017 15:06
[2017-06-05] MEDS: CASPOFUNGIN 50 MG in SOD CHLORIDE 0.9% 250 ML IVPB SCH (16:09)
[2017-06-05] MEDS ORDERED: LIDOCAINE 1% (MDV) 20 ML INJ SC ONE (17:00)
[2017-06-05] MEDS: CEFTRIAXONE 1 GM/50 ML (PMX) 50 ML IVPB SCH (17:19)
--- NOTE | 2017-06-05 18:48 | PN ---
Date/Time of Note Date/Time of Note DATE: 06/05/17 TIME: 18:46 Assessment/Plan VTE Prophylaxis VTE Prophylaxis Intervention: contraindicated VTE Contraindication Reason: bleeding Lines/Catheters IV Catheter Type (from Nrsg): Saline Lock Assessment/Plan Chief Complaint/Hosp Course Physical exam Constitutional: alert, oriented Respiratory: diminished breath sounds Cardiovascular: regular rate and rhythm Abdomen: soft, non tender A/P 1 Severe sepsis with Staph bacteremia and fungemia, rule out endocarditis, rule out discitis, poss other etiologies.CT A+P pending 2. End-stage liver disease, status post transjugular intrahepatic portosystemic shunt (TIPS) procedure. 3 Toxic Encephalopathy 4 DM better controlled 3. Anemia S/P EGD on 06/03 with gastroparesis 4. hs pancreatitis 5. Hx alcohol abuse 6. Hx esophageal varices 7. SIRS 8. S/p portal shunt 2017 9. S/p cardiac stenting 3 stents PLAN: - On PPI/Reglan - c/w Cefepime and Caspofungin - MRI negative - CT A+P to be done today convinced patient - c/w Lantus to 25 and increase Novolog to 12 tid with meals - PICC line - C/W Lactulose - F/U GI and I.D - GI/DVT prophylaxis Problems: Subjective 24 Hr Interval Summary Free Text/Dictation Pt insisted on going home Explained to him importance of getting CT scan today No bleeding noted Exam/Review of Systems Vital Signs Vitals Vital Signs Date Time Temp Pulse Resp B/P Pulse Ox O2 Delivery O2 Flow Rate FiO2 06/05/17 17:51 98.5 85 18 105/56 98 Room Air Intake and Output 06/04/17 06/04/17 06/05/17 15:00 23:00 07:00 Intake Total 780 ml 500 ml Output Total 500 ml 500 ml Balance 280 ml 0 ml Results Result Diagram: 06/05/17 1054 06/05/17 0607 Results 24 hrs Laboratory Tests Test 06/04/17 20:39 06/05/17 06:07 06/05/17 10:54 06/05/17 11:29 Bedside Glucose 174 172 White Blood Count 8.1 # Red Blood Count 2.68 L Hemoglobin 7.6 L 8.8 L Hematocrit 23.3 L 27.1 L Mean Corpuscular Volume 86.9 Mean Corpuscular Hemoglobin 28.4 L Mean Corpuscular Hemoglobin Concent 32.6 Red Cell Distribution Width 19.7 H Platelet Count 95 #L Mean Platelet Volume 12.2 H Neutrophils % 78.6 H Lymphocytes % 6.8 L Monocytes % 12.3 H Eosinophils % 1.4 Basophils % 0.5 Nucleated Red Blood Cells % 0.0 Neutrophils # (Manual) 6 Lymphocytes # 0.6 L Monocytes # 1.0 H Eosinophils # 0.1 Basophils # 0.0 Nucleated Red Blood Cells # 0.0 Sodium Level 130 L Potassium Level 4.6 Chloride Level 102 Carbon Dioxide Level 19 L Anion Gap 14 Blood Urea Nitrogen 10 Creatinine 0.54 L Glucose Level 184 Calcium Level 7.7 L Total Bilirubin 1.5 H Direct Bilirubin 0.00 Indirect Bilirubin 1.5 H Aspartate Amino Transf (AST/SGOT) 106 H Alanine Aminotransferase (ALT/SGPT) 96 H Alkaline Phosphatase 256 H Total Protein 5.9 L Albumin 2.1 L Globulin 3.80 H Albumin/Globulin Ratio 0.55 Medications Medications Current Medications Lorazepam (Ativan) 1 mg Q6H PRN IV anxiety/agitation Last administered on 16:55; Admin Dose 1 MG; Start 05/24/17 at 11:00 Miscellaneous Information 1 ea NOTE XX ; Start 05/26/17 at 01:00 Glucose (Glutose) 15 gm Q15M PRN PO DECREASED GLUCOSE; Start 05/26/17 at 01:00 Glucose (Glutose) 22.5 gm Q15M PRN PO DECREASED GLUCOSE; Start 05/26/17 at 01: 00 Dextrose (D50w Syringe) 25 ml Q15M PRN IV DECREASED GLUCOSE; Start 05/26/17 at 01:00 Dextrose (D50w Syringe) 50 ml Q15M PRN IV DECREASED GLUCOSE; Start 05/26/17 at 01:00 Glucagon (Glucagen) 1 mg Q15M PRN IM DECREASED GLUCOSE; Start 05/26/17 at 01:00 Glucose (Glutose) 15 gm Q15M PRN BUCCAL DECREASED GLUCOSE; Start 05/26/17 at 01 :00 Morphine Sulfate (morphine) 1 mg Q4H PRN IV PAIN LEVEL 7-10 Last administered on 06/05/17 17:20; Admin Dose 1 MG; Start 05/26/17 at 14:00 Potassium Chloride (Klor-Con 20) 20 meq BID PO Last administered on 06/05/17 08:08; Admin Dose 20 MEQ; Start 05/26/17 at 21:00 Diagnostic Test (Pha) (Accu-Chek) 1 ea 02 XX Last administered on 05/30/17 02: 35; Admin Dose 1 EA; Start 05/27/17 at 02:00 Pantoprazole (Protonix Tab) 40 mg BID@06,18 PO Last administered on 06/05/17 17:22; Admin Dose 40 MG; Start 05/28/17 at 18:00 Rifaximin (Xifaxan) 550 mg BID PO Last administered on 06/05/17 08:08; Admin Dose 550 MG; Start 05/28/17 at 21:00 Ondansetron HCl 4 mg 4 mg Q6H PRN IV NAUSEA AND/OR VOMITING Last administered on 05/30/17 18:40; Admin Dose 4 MG; Start 05/28/17 at 22:30 Caspofungin/ Sodium Chloride (Cancidas/NS) 250 ml @ 250 mls/hr Q24H IVPB Last administered on 06/05/17 16:09; Admin Dose 250 MLS/HR; Start 05/30/17 at 16:00 Lactulose (Enulose) 26.7 gm BID PO Last administered on 06/05/17 08:08; Admin Dose 26.7 GM; Start 05/31/17 at 21:00 Thiamine HCl (Vitamin B1) 100 mg DAILY PO Last administered on 06/05/17 08:08 ; Admin Dose 100 MG; Start 06/01/17 at 09:00 Multivitamins/ Minerals (Theragran-M) 1 tab DAILY PO Last administered on 09:49; Admin Dose 1 TAB; Start 06/01/17 at 09:00 Metoclopramide HCl (Reglan) 10 mg Q6 IV Last administered on 06/05/17 17:20; Admin Dose 10 MG; Start 06/03/17 at 09:40 Insulin Glargine 25 unit 25 unit DAILY@20 SC Last administered on 06/04/17 20: 44; Admin Dose 25 UNIT; Start 06/04/17 at 20:00 Ceftriaxone Sodium (Rocephin) 50 ml @ 100 mls/hr Q24H IVPB Last administered on 8/24/17at 17:19; Admin Dose 100 MLS/HR; Start 06/04/17 at 17:00 KATHARINA GLEASON MD Jun 05, 2017 18:48
[2017-06-05] MEDS: INSULIN GLARGINE [LANtus] 3 ML PEN SC SCH (20:35)
--- NOTE | 2017-06-05 20:38 | CONS ---
Date/Time of Note Date/Time of Note DATE: 06/05/17 TIME: 20:37 Assessment/Plan Assessment/Plan Additional Assessment/Plan Additional Assessment/Plan Additional Assessment/Plan 1. Cirrhosis of liver 2. Hepatic encephalopathy mild 3. Status post coronary artery stent 6 weeks ago 4. Status post TIPS for recurrent ascites. 5. Emesis 6. Epistaxis 7. Severe gastroparesis Plan Continue rifaximin and lactulose. TIPS a cause of his worsening encephalopathy Avoid all kinds of sedative Reglan for diabetic gastroparesis Ambulate with the help of physical therapy Consultation Date/Type/Reason Admit Date/Time May 24, 2017 at 05:42 Initial Consult Date 05/24/17 Type of Consultation: ID [id number] HR Interval Summary Constitutional: improved, no complaints Exam/Review of Systems Vital Signs Vitals Vital Signs Date Time Temp Pulse Resp B/P Pulse Ox O2 Delivery O2 Flow Rate FiO2 06/05/17 20:13 97 06/05/17 19:36 98.8 19 104/83 98 06/05/17 17:51 Room Air Intake and Output 06/04/17 06/04/17 06/05/17 15:00 23:00 07:00 Intake Total 780 ml 500 ml Output Total 500 ml 500 ml Balance 280 ml 0 ml Exam Constitutional: alert, oriented, well developed Psych: nl mood/affect, no complaints Head: atraumatic, normocephalic Eyes: EOMI, PERRL, nl conjunctiva, nl lids, nl sclera ENMT: nl external ears & nose, nl lips & teeth, nl nasal mucosa & septum Neck: non-tender, supple Respiratory: clear to auscultation, normal air movement Cardiovascular: nl pulses, regular rate and rhythm Gastrointestinal: nl liver, spleen, non-tender, soft Musculoskeletal: nl extremities to inspection, nl gait and stance Extremities: normal pulses Neurological: BAGGING SALVAGER II-XII intact, nl mental status, nl speech, nl strength Skin: nl turgor, No rash or lesions Lymph: nl lymph nodes Results Result Diagram: 06/05/17 1054 06/05/17 0607 Results 24 hrs Laboratory Tests Test 06/04/17 20:39 06/05/17 06:07 06/05/17 10:54 06/05/17 11:29 Bedside Glucose 174 172 White Blood Count 8.1 # Red Blood Count 2.68 L Hemoglobin 7.6 L 8.8 L Hematocrit 23.3 L 27.1 L Mean Corpuscular Volume 86.9 Mean Corpuscular Hemoglobin 28.4 L Mean Corpuscular Hemoglobin Concent 32.6 Red Cell Distribution Width 19.7 H Platelet Count 95 #L Mean Platelet Volume 12.2 H Neutrophils % 78.6 H Lymphocytes % 6.8 L Monocytes % 12.3 H Eosinophils % 1.4 Basophils % 0.5 Nucleated Red Blood Cells % 0.0 Neutrophils # (Manual) 6 Lymphocytes # 0.6 L Monocytes # 1.0 H Eosinophils # 0.1 Basophils # 0.0 Nucleated Red Blood Cells # 0.0 Sodium Level 130 L Potassium Level 4.6 Chloride Level 102 Carbon Dioxide Level 19 L Anion Gap 14 Blood Urea Nitrogen 10 Creatinine 0.54 L Glucose Level 184 Calcium Level 7.7 L Total Bilirubin 1.5 H Direct Bilirubin 0.00 Indirect Bilirubin 1.5 H Aspartate Amino Transf (AST/SGOT) 106 H Alanine Aminotransferase (ALT/SGPT) 96 H Alkaline Phosphatase 256 H Total Protein 5.9 L Albumin 2.1 L Globulin 3.80 H Albumin/Globulin Ratio 0.55 Medications Medications Current Medications Lorazepam (Ativan) 1 mg Q6H PRN IV anxiety/agitation Last administered on 16:55; Admin Dose 1 MG; Start 05/24/17 at 11:00 Miscellaneous Information 1 ea NOTE XX ; Start 05/26/17 at 01:00 Glucose (Glutose) 15 gm Q15M PRN PO DECREASED GLUCOSE; Start 05/26/17 at 01:00 Glucose (Glutose) 22.5 gm Q15M PRN PO DECREASED GLUCOSE; Start 05/26/17 at 01: 00 Dextrose (D50w Syringe) 25 ml Q15M PRN IV DECREASED GLUCOSE; Start 05/26/17 at 01:00 Dextrose (D50w Syringe) 50 ml Q15M PRN IV DECREASED GLUCOSE; Start 05/26/17 at 01:00 Glucagon (Glucagen) 1 mg Q15M PRN IM DECREASED GLUCOSE; Start 05/26/17 at 01:00 Glucose (Glutose) 15 gm Q15M PRN BUCCAL DECREASED GLUCOSE; Start 05/26/17 at 01 :00 Morphine Sulfate (morphine) 1 mg Q4H PRN IV PAIN LEVEL 7-10 Last administered on 06/05/17 17:20; Admin Dose 1 MG; Start 05/26/17 at 14:00 Potassium Chloride (Klor-Con 20) 20 meq BID PO Last administered on 06/05/17 20:28; Admin Dose 20 MEQ; Start 05/26/17 at 21:00 Diagnostic Test (Pha) (Accu-Chek) 1 ea 02 XX Last administered on 05/30/17 02: 35; Admin Dose 1 EA; Start 05/27/17 at 02:00 Pantoprazole (Protonix Tab) 40 mg BID@06,18 PO Last administered on 06/05/17 17:22; Admin Dose 40 MG; Start 05/28/17 at 18:00 Rifaximin (Xifaxan) 550 mg BID PO Last administered on 06/05/17 20:28; Admin Dose 550 MG; Start 05/28/17 at 21:00 Ondansetron HCl 4 mg 4 mg Q6H PRN IV NAUSEA AND/OR VOMITING Last administered on 05/30/17 18:40; Admin Dose 4 MG; Start 05/28/17 at 22:30 Caspofungin/ Sodium Chloride (Cancidas/NS) 250 ml @ 250 mls/hr Q24H IVPB Last administered on 06/05/17 16:09; Admin Dose 250 MLS/HR; Start 05/30/17 at 16:00 Lactulose (Enulose) 26.7 gm BID PO Last administered on 06/05/17 20:29; Admin Dose 26.7 GM; Start 05/31/17 at 21:00 Thiamine HCl (Vitamin B1) 100 mg DAILY PO Last administered on 06/05/17 08:08 ; Admin Dose 100 MG; Start 06/01/17 at 09:00 Multivitamins/ Minerals (Theragran-M) 1 tab DAILY PO Last administered on 09:49; Admin Dose 1 TAB; Start 06/01/17 at 09:00 Metoclopramide HCl (Reglan) 10 mg Q6 IV Last administered on 06/05/17 17:20; Admin Dose 10 MG; Start 06/03/17 at 09:40 Insulin Glargine 25 unit 25 unit DAILY@20 SC Last administered on 06/05/17 20: 35; Admin Dose 25 UNIT; Start 06/04/17 at 20:00 Ceftriaxone Sodium (Rocephin) 50 ml @ 100 mls/hr Q24H IVPB Last administered on 06/05/17t 17:19; Admin Dose 100 MLS/HR; Start 06/04/17 at 17:00 CONOR CLINE MD Jun 05, 2017 20:38
[2017-06-05] MEDS ORDERED: IOHEXOL 300MG/ML 150 ML BTL ONE (23:01)
[2017-06-05] MEDS ORDERED: SOD CHLORIDE 0.9% 100 ML ONE (23:01)
[2017-06-06] VITALS (9 sets, daily range): BP systolic 100–114; BP diastolic 55–69; PULSE 87–106; RESP 18–20
[2017-06-06] MEDS: morphine 2 MG INJ IV PRN ×4 (01:17→14:52)
[2017-06-06] MEDS: METOCLOPRAMIDE 10 MG INJ IV SCH ×4 (01:18→17:06)
[2017-06-06] MEDS: ACCU-CHEK XX SCH (01:20)
[2017-06-06] MEDS: PANTOPRAZOLE (EC) 40 MG TAB PO SCH ×2 (05:24→17:06)
--- NOTE | 2017-06-06 06:47 | RADRPT ---
PROCEDURE: CT Abdomen and pelvis with contrast CLINICAL INDICATION: Fever and leukocytosis. Recent white blood cell scan suggesting possible fifi al infection. TECHNIQUE: Spiral CT images through the abdomen and pelvis without administration of oral and duri ng administration of 90 cc of Omnipaque-300 contrast material. Multiplanar reconstructions. The to stefan exam CTDI equals 14.03 mGy and the total exam DLP equals 855.61 mGy-cm. One or more [facility] the [facility] dose reduction techniques were used: automated exposure control, adjustment of the mA and/or kV according to patient size, or use of iterative reconstruction technique. COMPARISON: 02/06/2017 FINDINGS: Slight atelectasis of the lung bases is seen. No pleural effusion is seen. . cardiomegaly. Aortic and coronary artery calcification. Again seen is a small multinodular liver consistent with cirrhosis. There has been interval placeme nt of a TIPS shunt which extends from the middle hepatic vein into the right portal vein and conflue nce. Moderate ascites of the abdomen pelvis is seen, slightly decreased in volume compared with raffy or. Collateral vessels and hazy opacity throughout the mesentery and omentum. Again seen is a calc ified gallstone in the neck of the gallbladder with a tiny punctate calcification which may be in th e gallbladder neck or cystic duct distal to the larger stone. No intrahepatic biliary ductal dilata tion. Mild splenomegaly (14.7 cm). Probable bilateral renal cortical cysts again seen. The kidneys enhance uniformly. There is no evidence for pyelonephritis. No urothelial enhancement or hydronep hrosis. Unremarkable adrenals. Again seen are multiple punctate calcifications throughout the pancr eas consistent with chronic pancreatitis. Pancreatic ductal dilatation may be unchanged but better seen on this contrast-enhanced examination. The pancreatic duct measures up to 7 mm in diameter. N o definite solid pancreatic mass. The portal vein is patent. The left portal vein is not well seen . Recanalized periumbilical vein. Small fat-containing right inguinal hernia. Unremarkable prosta te and urinary bladder. Vas deferens calcification again seen. Normal appendix. No evidence for d iverticulitis. No definite small bowel obstruction, free air, or abscess. IMPRESSION: Interval placement of TIPS shunt. Multiple other stable abnormal findings related to cirrhosis as d etailed above. Gallstone in the adjacent to the neck of the gallbladder with additional tiny punctate calcificatio n which may be in the gallbladder neck or cystic duct. These are unchanged compared with prior. HI DA scan could be obtained if cholecystitis is suspected clinically. Changes from chronic pancreatitis. Likely stable pancreatic ductal dilatation. Additional nonacute findings as above. RPTAT: HLBE Physician Frandy Date Time Electronically viewed and signed by Jeanne Montelongo Physician on 06/06/2017 06:47 LE/
[2017-06-06 07:24] LABS: CALCIUM 7.9 mg/dl (8.4-10.2); CREATININE 0.55 mg/dl (0.61-1.24); POTASSIUM 5.2 mmol/L (3.5-5.1)
[2017-06-06] MEDS: Insulin NOVOLOG SS MODERATE Algorithm (SS with meals and bedtime) SC SCH ×3 (07:59→16:45)
[2017-06-06] MEDS: INSULIN ASPART [NOVOLOG] 3 ML PEN SC SCH ×3 (07:59→17:02)
[2017-06-06] MEDS: RIFAXIMIN 550 MG TAB PO SCH (08:00)
[2017-06-06] MEDS: POTASSIUM CHLORIDE (SR) 20 MEQ TAB PO SCH (08:00)
[2017-06-06] MEDS: THIAMINE 100 MG TAB PO SCH (08:00)
[2017-06-06] MEDS: MULTIVITAMINS/MINERALS TAB PO SCH (08:00)
[2017-06-06] MEDS: LACTULOSE 30ML CUP PO SCH (08:00)
--- NOTE | 2017-06-06 10:17 | RADRPT ---
PROCEDURE: US guidance for PICC line CLINICAL INDICATION: PICC line placement TECHNIQUE: Multiple real-time images were acquired of the patient's arm utilizing a high resolutio n transducer. This was performed by the PICC line nurse for venous access. COMPARISON: None FINDINGS: Ultrasound guidance for PICC line placement. IMPRESSION: Ultrasound guidance for PICC line placement. RPTAT: AA .Paco David MD, MD Date Time Electronically viewed and signed by .Paco David MD, on 06/06/2017 10:16 .S/
[2017-06-06 10:43] LABS: ABNORMAL IP MESSAGE 1; BASOPHILS % 0.5 % (0.0-2.0); EOSINOPHILS # 0.1 10^3/ul (0.0-0.5); EOSINOPHILS % 1.2 % (0.0-7.0); HEMOGLOBIN 7.5 g/dl (14.0-18.0); LYMPHOCYTES # 0.5 10^3/ul (0.8-2.9); LYMPHOCYTES % 7.9 % (15.0-51.0); MEAN CORPUSCULAR HEMOGLOBIN 27.6 pg (29.0-33.0); MEAN CORPUSCULAR HGB CONC 31.3 g/dl (32.0-37.0); MEAN CORPUSCULAR VOLUME 88.2 fl (82.0-101.0); MEAN PLATELET VOLUME 12.6 fl (7.4-10.4); MONOCYTE # 1.1 10^3/ul (0.3-0.9); NEUTROPHILS % 73.2 % (39.0-77.0); PLATELET COUNT 92 10^3/UL (140-415); POSITIVE DIFF @See below; RED BLOOD COUNT 2.72 10^6/ul (4.70-6.10); RED CELL DISTRIBUTION WIDTH 20.3 % (11.5-14.5); WHITE BLOOD COUNT 6.5 10^3/ul (4.8-10.8)
--- NOTE | 2017-06-06 10:52 | CONS ---
Date/Time of Note Date/Time of Note DATE: 06/06/17 TIME: 10:49 Assessment/Plan Assessment/Plan Additional Assessment/Plan Additional Assessment/Plan Additional Assessment/Plan Additional Assessment/Plan 1. Cirrhosis of liver 2. Hepatic encephalopathy mild 3. Status post coronary artery stent 6 weeks ago 4. Status post TIPS for recurrent ascites. 5. Emesis 6. Epistaxis 7. Severe gastroparesis 8. Chronic pancreatitis 9. Fungemia Plan Continue rifaximin and lactulose. TIPS a cause of his worsening encephalopathy Avoid all kinds of sedative Complete the course of antifungal medication Reglan for diabetic gastroparesis Ambulate with the help of physical therapy Consultation Date/Type/Reason Admit Date/Time May 24, 2017 at 05:42 Initial Consult Date 05/24/17 Type of Consultation: ID 24 HR Interval Summary Free Text/Dictation No nausea no vomiting no abdominal pain No epistaxis Exam/Review of Systems Vital Signs Vitals Vital Signs Date Time Temp Pulse Resp B/P Pulse Ox O2 Delivery O2 Flow Rate FiO2 06/06/17 08:10 87 06/06/17 07:43 98.3 20 101/69 94 06/05/17 17:51 Room Air Intake and Output 06/05/17 06/05/17 06/06/17 15:00 23:00 07:00 Intake Total 850 ml 1520 ml Output Total 950 ml Balance 850 ml 570 ml Exam Constitutional: alert, oriented, well developed Psych: nl mood/affect, no complaints Head: atraumatic, normocephalic Eyes: EOMI, PERRL, nl conjunctiva, nl lids, nl sclera ENMT: nl external ears & nose, nl lips & teeth, nl nasal mucosa & septum Neck: non-tender, supple Respiratory: clear to auscultation, normal air movement Cardiovascular: nl pulses, regular rate and rhythm Gastrointestinal: nl liver, spleen, non-tender, soft Musculoskeletal: nl extremities to inspection, nl gait and stance Extremities: normal pulses Neurological: FLOATING OPERATOR II-XII intact, nl mental status, nl speech, nl strength Skin: nl turgor, No rash or lesions Lymph: nl lymph nodes Results Result Diagram: 06/06/17 0635 06/06/17 0638 Results 24 hrs Laboratory Tests Test 06/05/17 10:54 06/05/17 11:29 06/05/17 20:27 06/06/17 01:22 Hemoglobin 8.8 L Hematocrit 27.1 L Bedside Glucose 172 191 194 Test 06/06/17 06:35 06/06/17 06:38 06/06/17 07:42 White Blood Count 6.5 Red Blood Count 2.72 L Hemoglobin 7.5 L Hematocrit 24.0 L Mean Corpuscular Volume 88.2 Mean Corpuscular Hemoglobin 27.6 L Mean Corpuscular Hemoglobin Concent 31.3 L Red Cell Distribution Width 20.3 H Platelet Count 92 L Mean Platelet Volume 12.6 H Neutrophils % 73.2 Lymphocytes % 7.9 L Monocytes % 17.0 H Eosinophils % 1.2 Basophils % 0.5 Nucleated Red Blood Cells % 0.0 Neutrophils # (Manual) 4.7 Lymphocytes # 0.5 L Monocytes # 1.1 H Eosinophils # 0.1 Basophils # 0.0 Nucleated Red Blood Cells # 0.0 Sodium Level 132 L Potassium Level 5.2 H Chloride Level 104 Carbon Dioxide Level 20 L Anion Gap 13 Blood Urea Nitrogen 12 Creatinine 0.55 L Glucose Level 140 # Calcium Level 7.9 L Bedside Glucose 142 Medications Medications Current Medications Lorazepam (Ativan) 1 mg Q6H PRN IV anxiety/agitation Last administered on 16:55; Admin Dose 1 MG; Start 05/24/17 at 11:00 Miscellaneous Information 1 ea NOTE XX ; Start 05/26/17 at 01:00 Glucose (Glutose) 15 gm Q15M PRN PO DECREASED GLUCOSE; Start 05/26/17 at 01:00 Glucose (Glutose) 22.5 gm Q15M PRN PO DECREASED GLUCOSE; Start 05/26/17 at 01: 00 Dextrose (D50w Syringe) 25 ml Q15M PRN IV DECREASED GLUCOSE; Start 05/26/17 at 01:00 Dextrose (D50w Syringe) 50 ml Q15M PRN IV DECREASED GLUCOSE; Start 05/26/17 at 01:00 Glucagon (Glucagen) 1 mg Q15M PRN IM DECREASED GLUCOSE; Start 05/26/17 at 01:00 Glucose (Glutose) 15 gm Q15M PRN BUCCAL DECREASED GLUCOSE; Start 05/26/17 at 01 :00 Morphine Sulfate (morphine) 1 mg Q4H PRN IV PAIN LEVEL 7-10 Last administered on 06/06/17 10:30; Admin Dose 1 MG; Start 05/26/17 at 14:00 Diagnostic Test (Pha) (Accu-Chek) 1 ea 02 XX Last administered on 05/30/17 02: 35; Admin Dose 1 EA; Start 05/27/17 at 02:00 Pantoprazole (Protonix Tab) 40 mg BID@06,18 PO Last administered on 06/06/17 05:24; Admin Dose 40 MG; Start 05/28/17 at 18:00 Rifaximin (Xifaxan) 550 mg BID PO Last administered on 06/06/17 08:00; Admin Dose 550 MG; Start 05/28/17 at 21:00 Ondansetron HCl 4 mg 4 mg Q6H PRN IV NAUSEA AND/OR VOMITING Last administered on 05/30/17 18:40; Admin Dose 4 MG; Start 05/28/17 at 22:30 Caspofungin/ Sodium Chloride (Cancidas/NS) 250 ml @ 250 mls/hr Q24H IVPB Last administered on 06/05/17 16:09; Admin Dose 250 MLS/HR; Start 05/30/17 at 16:00 Lactulose (Enulose) 26.7 gm BID PO Last administered on 06/06/17 08:00; Admin Dose 26.7 GM; Start 05/31/17 at 21:00 Thiamine HCl (Vitamin B1) 100 mg DAILY PO Last administered on 06/06/17 08:00 ; Admin Dose 100 MG; Start 06/01/17 at 09:00 Multivitamins/ Minerals (Theragran-M) 1 tab DAILY PO Last administered on 08:00; Admin Dose 1 TAB; Start 06/01/17 at 09:00 Metoclopramide HCl (Reglan) 10 mg Q6 IV Last administered on 06/06/17 05:24; Admin Dose 10 MG; Start 06/03/17 at 09:40 Insulin Glargine 25 unit 25 unit DAILY@20 SC Last administered on 06/05/17 20: 35; Admin Dose 25 UNIT; Start 06/04/17 at 20:00 Ceftriaxone Sodium (Rocephin) 50 ml @ 100 mls/hr Q24H IVPB Last administered on 06/05/17 17:19; Admin Dose 100 MLS/HR; Start 06/04/17 at 17:00 IV Flush (NS 10 ml) 10 ml PRN PRN IV IV PROTOCOL; Start 06/06/17 at 10:30 CONOR CLINE MD Jun 06, 2017 10:51
--- NOTE | 2017-06-06 11:32 | RADRPT ---
PROCEDURE: XR Chest. CLINICAL INDICATION: Check PICC line position. TECHNIQUE: Single frontal view. COMPARISON: 05/26/2017. FINDINGS: There is a right arm PICC line with the tip in the mid superior vena cava. There is mild atelectasi s at the left lung base. The lungs are otherwise clear. The heart size is normal. There is calcification in the aorta consistent with atherosclerosis. There is no pleural effusion. There is no pneumothorax. IMPRESSION: 1. Right arm PICC line tip in satisfactory position. 2. Mild left basilar atelectasis. 3. Atherosclerosis. RPTAT: QQ .Thierno Ventura MD, MD Date Time Electronically viewed and signed by .Thierno Ventura MD, MD on 06/06/2017 11:32 .R/
[2017-06-06] MEDS ORDERED: SOD CHLORIDE 0.9% 100 ML ONE (12:43)
--- NOTE | 2017-06-06 13:18 | PN ---
Date/Time of Note Date/Time of Note DATE: 06/06/17 TIME: 13:16 Assessment/Plan VTE Prophylaxis VTE Prophylaxis Intervention: ambulation Lines/Catheters IV Catheter Type (from Nrs): PICC Line Central line still needed: Yes Urinary Cath still in place: Yes (condom cath) Reason Cath still needed: other (indicate) (condom cath) Assessment/Plan Chief Complaint/Hosp Course 1. Liver cirrhosis 2. toxic Encephalopathy 3. Anemia 4. hs pancreatitis 5. Hx alcohol abuse 6. Hx esophageal varices 7. SIRS 8. S/p portal shunt 2017 9. S/p cardiac stenting 3 stents Problems: Assessment/Plan 1. Continue rocephin 4 weeks, cancidas 5 days, continue lactulose. 2. Complete the course of antifungal medication 3. discharge home after 1 unit PRBC transfusion 4. pillowcase maker to arrange home health Subjective 24 Hr Interval Summary Constitutional: improved, no complaints Gastrointestinal: no complaints Genitourinary: no complaints Exam/Review of Systems Vital Signs Vitals Vital Signs Date Time Temp Pulse Resp B/P Pulse Ox O2 Delivery O2 Flow Rate FiO2 06/06/17 12:10 103 06/06/17 11:03 98.4 20 114/64 99 06/05/17 17:51 Room Air Intake and Output 06/05/17 06/05/17 06/06/17 15:00 23:00 07:00 Intake Total 850 ml 1520 ml Output Total 950 ml Balance 850 ml 570 ml Exam Constitutional: alert Psych: no complaints Neck: supple Respiratory: clear to auscultation Cardiovascular: regular rate and rhythm Results Result Diagram: 06/06/17 0635 06/06/17 0638 Results 24 hrs Laboratory Tests Test 06/05/17 20:27 06/06/17 01:22 06/06/17 06:35 06/06/17 06:38 Bedside Glucose 191 194 White Blood Count 6.5 Red Blood Count 2.72 L Hemoglobin 7.5 L Hematocrit 24.0 L Mean Corpuscular Volume 88.2 Mean Corpuscular Hemoglobin 27.6 L Mean Corpuscular Hemoglobin Concent 31.3 L Red Cell Distribution Width 20.3 H Platelet Count 92 L Mean Platelet Volume 12.6 H Neutrophils % 73.2 Lymphocytes % 7.9 L Monocytes % 17.0 H Eosinophils % 1.2 Basophils % 0.5 Nucleated Red Blood Cells % 0.0 Neutrophils # (Manual) 4.7 Lymphocytes # 0.5 L Monocytes # 1.1 H Eosinophils # 0.1 Basophils # 0.0 Nucleated Red Blood Cells # 0.0 Sodium Level 132 L Potassium Level 5.2 H Chloride Level 104 Carbon Dioxide Level 20 L Anion Gap 13 Blood Urea Nitrogen 12 Creatinine 0.55 L Glucose Level 140 # Calcium Level 7.9 L Test 06/06/17 07:42 06/06/17 11:38 Bedside Glucose 142 204 Medications Medications Current Medications Lorazepam (Ativan) 1 mg Q6H PRN IV anxiety/agitation Last administered on 16:55; Admin Dose 1 MG; Start 05/24/17 at 11:00 Miscellaneous Information 1 ea NOTE XX ; Start 05/26/17 at 01:00 Glucose (Glutose) 15 gm Q15M PRN PO DECREASED GLUCOSE; Start 05/26/17 at 01:00 Glucose (Glutose) 22.5 gm Q15M PRN PO DECREASED GLUCOSE; Start 05/26/17 at 01: 00 Dextrose (D50w Syringe) 25 ml Q15M PRN IV DECREASED GLUCOSE; Start 05/26/17 at 01:00 Dextrose (D50w Syringe) 50 ml Q15M PRN IV DECREASED GLUCOSE; Start 05/26/17 at 01:00 Glucagon (Glucagen) 1 mg Q15M PRN IM DECREASED GLUCOSE; Start 05/26/17 at 01:00 Glucose (Glutose) 15 gm Q15M PRN BUCCAL DECREASED GLUCOSE; Start 05/26/17 at 01 :00 Morphine Sulfate (morphine) 1 mg Q4H PRN IV PAIN LEVEL 7-10 Last administered on 06/06/17 10:30; Admin Dose 1 MG; Start 05/26/17 at 14:00 Diagnostic Test (Pha) (Accu-Chek) 1 ea 02 XX Last administered on 05/30/17 02: 35; Admin Dose 1 EA; Start 05/27/17 at 02:00 Pantoprazole (Protonix Tab) 40 mg BID@06,18 PO Last administered on 06/06/17 05:24; Admin Dose 40 MG; Start 05/28/17 at 18:00 Rifaximin (Xifaxan) 550 mg BID PO Last administered on 06/06/17 08:00; Admin Dose 550 MG; Start 05/28/17 at 21:00 Ondansetron HCl 4 mg 4 mg Q6H PRN IV NAUSEA AND/OR VOMITING Last administered on 05/30/17 18:40; Admin Dose 4 MG; Start 05/28/17 at 22:30 Caspofungin/ Sodium Chloride (Cancidas/NS) 250 ml @ 250 mls/hr Q24H IVPB Last administered on 06/05/17 16:09; Admin Dose 250 MLS/HR; Start 05/30/17 at 16:00 Lactulose (Enulose) 26.7 gm BID PO Last administered on 06/06/17 08:00; Admin Dose 26.7 GM; Start 05/31/17 at 21:00 Thiamine HCl (Vitamin B1) 100 mg DAILY PO Last administered on 06/06/17 08:00 ; Admin Dose 100 MG; Start 06/01/17 at 09:00 Multivitamins/ Minerals (Theragran-M) 1 tab DAILY PO Last administered on 08:00; Admin Dose 1 TAB; Start 06/01/17 at 09:00 Metoclopramide HCl (Reglan) 10 mg Q6 IV Last administered on 06/06/17 11:38; Admin Dose 10 MG; Start 06/03/17 at 09:40 Insulin Glargine 25 unit 25 unit DAILY@20 SC Last administered on 06/05/17 20: 35; Admin Dose 25 UNIT; Start 06/04/17 at 20:00 Ceftriaxone Sodium (Rocephin) 50 ml @ 100 mls/hr Q24H IVPB Last administered on 06/05/17 17:19; Admin Dose 100 MLS/HR; Start 06/04/17 at 17:00 IV Flush (NS 10 ml) 10 ml PRN PRN IV IV PROTOCOL; Start 06/06/17 at 10:30 MALKA VU Jun 06, 2017 13:17
--- NOTE | 2017-06-06 13:34 | PDOCDIS ---
Discharge Instructions DIAGNOSIS Discharge Diagnosis Liver cirrhosis, s/p TIPS, encephalopathy, sepsis CONDITION Patient Condition: Guarded HOME CARE INSTRUCTIONS: Special Diet: carb controlled ACTIVITY: Activity Restrictions: Slowly Increase Activity FOLLOW UP/APPOINTMENTS Follow-up Plan PCP 1 week, GI 1 week SCHOOL/WORK RELEASE May return to School/Work with: With Restrictions MALKA VU Jun 06, 2017 13:33
[2017-06-06] MEDS ORDERED: LACT20SO12 PO (13:40)
[2017-06-06] MEDS ORDERED: LANT3I SC (13:40)
[2017-06-06] MEDS: CASPOFUNGIN 50 MG in SOD CHLORIDE 0.9% 250 ML IVPB SCH (15:22)
[2017-06-06] MEDS: CEFTRIAXONE 1 GM/50 ML (PMX) 50 ML IVPB SCH (16:41)
--- NOTE | 2017-06-07 04:25 | PN ---
DATE: 06/06/2017 SUBJECTIVE DATA: No acute changes. The patient is alert, feels good, looks comfortable. Denies pain, discomfort. Anxious to go home. No fevers. OBJECTIVE DATA: VITAL SIGNS: Temperature 98.8, pulse 98, respirations 20, blood pressure 100/55, saturation 99 percent on room air. LABORATORY AND DIAGNOSTIC DATA: WBC 6.5, H and H 7.5 and 24, platelets 92, neutrophils 73.2. BUN 12, creatinine 0.55. INDWELLINGS: Patient has a PICC line placed this morning. ANTIMICROBIALS: Rocephin, Cancidas. PHYSICAL EXAMINATION: GENERAL: Well-developed, middle-aged [place] man, who is alert, in no distress. HEENT: Head atraumatic, normocephalic. Sclerae anicteric. Buccal mucosa pink. NECK: Supple. LUNGS: Chest rise symmetrical. Breath sounds clear. HEART: S1, S2. ABDOMEN: Soft, bowel sounds present. EXTREMITIES: Without cyanosis. ASSESSMENT: 1. Status post severe sepsis. 2. Persistent oxacillin-sensitive Staphylococcus aureus bacteremia on admission with repeated blood culture on May 25 and and persistently positive for Staphylococcus aureus despite patient being on antibiotics. 3. Fungemia. 4. Urinary tract infection. 5. End-stage liver disease, status post transjugular intrahepatic portosystemic shunt (TIPS) procedure. 6. Diabetes. 7. Anemia and thrombocytopenia. 8. Coronary artery disease with a history of cardiac stents. PLAN: 1. Patient remains stable. WBC scan was negative. Lumbar and thoracic spine revealed no acute infectious process. CT of the abdomen and pelvis revealed no acute changes. Patient has a interval placement of TIPS shunt, multiple other stable abnormal findings related to cirrhosis. 2. Given persistent bacteremia, recommend to keep the patient on long-term antibiotics with Rocephin for another 4 weeks. Complete treatment with Cancidas for fungemia for 5 more days. Recommend MEG, which patient is refusing at this time. Continue present care as per primary team and consultants. Dictated By: Sai Dobbs NP /darren/esvin /Document#: [id number] ELAYNE
== END 2017-06-06 20:03 | disposition home health service (06) | DRG 871 ==
LOC: E/R 03:18 → TEL 05:42
PROVIDERS: ADMIT Internal Medicine Nephrology; ATTEND Internal Medicine Nephrology
PROC: 30233K1 Transfusion of Nonautologous Frozen Plasma into Peripheral Vein, Percutaneous Approach (ICD-10-PCS; 2017-05-24)
PROC: 30233N1 Transfusion of Nonautologous Red Blood Cells into Peripheral Vein, Percutaneous Approach (ICD-10-PCS; 2017-06-02)
PROC: 0DJ08ZZ Inspection of Upper Intestinal Tract, Via Natural or Artificial Opening Endoscopic (ICD-10-PCS; principal; 2017-06-03 08:00)
PROC: 02HV33Z Insertion of Infusion Device into Superior Vena Cava, Percutaneous Approach (ICD-10-PCS; 2017-06-06)
DX: A41.9 Sepsis, unspecified organism (principal); G92 Toxic encephalopathy; D69.6 Thrombocytopenia, unspecified; E11.43 Type 2 diabetes mellitus with diabetic autonomic (poly)neuropathy; K31.84 Gastroparesis; K70.30 Alcoholic cirrhosis of liver without ascites; E11.65 Type 2 diabetes mellitus with hyperglycemia; B37.49 Other urogenital candidiasis; R65.20 Severe sepsis without septic shock; K72.90 Hepatic failure, unspecified without coma; K31.89 Other diseases of stomach and duodenum; K21.9 Gastro-esophageal reflux disease without esophagitis; D64.9 Anemia, unspecified; R04.0 Epistaxis; F10.21 Alcohol dependence, in remission; I25.10 Atherosclerotic heart disease of native coronary artery without angina pectoris; B95.61 Methicillin susceptible Staphylococcus aureus infection as the cause of diseases classified elsewhere; M50.222 Other cervical disc displacement at C5-C6 level; Z96.89 Presence of other specified functional implants; Z95.1 Presence of aortocoronary bypass graft; Z95.5 Presence of coronary angioplasty implant and graft; Z87.891 Personal history of nicotine dependence; Z79.4 Long term (current) use of insulin
CPT/HCPCS: 36415; 36430; 36569; 70450; 71010; 72146; 72149; 74000; 74177; 76705; 76937; 78806; 80048; 80053; 80202; 81001; 82140; 82270; 82310; 82962; 83036; 83690; 83735; 84100; 84484; 85014; 85018; 85025; 85610; 85730; 86850; 86900; 86901; 86920; 87040; 87086; 93005; 93306; 96374; 96375; 97162; 97530; A4310; A9570; C9113; J0692; J0696; J1200; J1815; J2060; J2185; J2270; J2370; J2405; J2765; J3370; J3411; J7030; J7040; J7042; J7050; J7070; P9016; P9047; P9059; P9612; Q9967

== ENCOUNTER 2017-06-15 09:23 | Emergency (ER) | payer MEDICAID ==
[~2017-06-15] VITALS: Ht 177.8 cm; Wt 62.0 kg
[~2017-06-15 09:23] MED LIST changes: +CALC667C PO; +CLOP75TA4 PO; +CYAN500T46 PO; +DEXT15DR2 BOTH EYES; +DIPH25CA6 PO; +EZET10TA3 PO; +FLUO120C4 TOP; +INSU100I12 SQ; -KAYPO PO; +LACT20SO12 PO; +LIDO1ADH TP; -LOSA25TA2 PO; +MELA1TAB10 PO; +MIDO5TAB19 PO; -NOVO3I SC; +RIFA550T4 PO; +SPIR25TA PO
[2017-06-15 09:25] VITALS: Ht 177.8 cm; Wt 62.0 kg
[2017-06-15] MEDS ORDERED: HYDROCODONE/APAP (5/325) TAB PO ONE (14:00)
[2017-06-15 16:27] LABS: BASOPHILS % 0.9 % (0.0-2.0); EOSINOPHILS # 0.1 10^3/ul (0.0-0.5); EOSINOPHILS % 1.3 % (0.0-7.0); HEMATOCRIT 33.5 % (42.0-52.0); HEMOGLOBIN 11.1 g/dl (14.0-18.0); LYMPHOCYTES # 0.6 10^3/ul (0.8-2.9); LYMPHOCYTES % 13.7 % (15.0-51.0); MEAN CORPUSCULAR HEMOGLOBIN 28.3 pg (29.0-33.0); MEAN CORPUSCULAR HGB CONC 33.1 g/dl (32.0-37.0); MEAN CORPUSCULAR VOLUME 85.5 fl (82.0-101.0); MONOCYTE # 0.6 10^3/ul (0.3-0.9); MONOCYTES % 11.8 % (0.0-11.0); NEUTROPHILS % 72.1 % (39.0-77.0); PLATELET COUNT 164 10^3/UL (140-415); RED BLOOD COUNT 3.92 10^6/ul (4.70-6.10); RED CELL DISTRIBUTION WIDTH 20.4 % (11.5-14.5); WHITE BLOOD COUNT 4.7 10^3/ul (4.8-10.8)
[2017-06-15 16:39] LABS: INR 1.61; PROTIME 19.3 Sec (12.2-14.2); PT RATIO 1.5
[2017-06-15 16:40] LABS: PARTIAL THROMBOPLASTIN TIME 39.9 Sec (25.0-35.0)
[2017-06-15] MEDS ORDERED: HYDROmorphONE 1 MG/ML SYG IM STA (18:01)
--- NOTE | 2017-06-15 18:04 | ERD ---
ER Documentation Chief Complaint Date/Time DATE: 06/15/17 TIME: 18:02 Chief Complaint ABD PAIN WITH NAUSEA , NEEDS PARACENTESIS HPI This is a 46-year-old male with chronic liver issues who presents to the emergency room for evaluation of abdominal cramping and pain. The patient has had multiple paracentesis in the past and states that he feels he needs another paracentesis. He denies any aggravating factors for his pain and states that Dilaudid and paracentesis relieves his pain ROS All systems reviewed and are negative except as per history of present illness. Medications Home Meds Active Scripts Lactulose* (Cephulac*) 20 Gm/30 Ml Soln, 26.7 GM PO BID for 30 Days Prov:MALKA VU 06/06/17 Insulin Glargine* (Lantus*) 100 Unit/Ml Soln, 25 UNIT SC DAILY@20 for 30 Days Prov:MALKA VU 06/06/17 Reported Medications Dextran/Hypromellose/Glycerin (Artificial Tears Drops) 15 Ml Drops, 2 DROP BOTH EYES TID Y for PRN, EA 05/24/17 Melatonin-Pyridoxine Hcl (Melatonin) 5-10 Mg Tablet, 5 TAB PO HS, TAB 05/24/17 Fluocinonide* (Fluocinonide* Cream) 0.1% - 120 Gm Cream..g., 1 APPLIC TOP BID, TUB 05/24/17 Rifaximin* (Xifaxan*) 550 Mg Tablet, 550 MG PO BID, TAB 05/24/17 Diphenhydramine Hcl* (Diphenhydramine Hcl*) 25 Mg Capsule, 25 MG PO Q6 Y for ITCHING, CAP 05/24/17 Cyanocobalamin* (Vitamin B12*) 500 Mcg Tab, 500 MCG PO DAILY, TAB 05/24/17 Calcium Acetate* (Calcium Acetate*) 667 Mg Capsule, 667 MG PO WITH MEALS, #30 CAP 05/24/17 Midodrine* (Midodrine*) 5 Mg Tablet, 5 MG PO TID, TAB 05/24/17 Clopidogrel Bisulfate* (Clopidogrel Bisulfate*) 75 Mg Tablet, 75 MG PO DAILY, # 30 TAB 05/24/17 Lidocaine/Menthol (LIDOPATCH) 1 Each Adh..patch, 1 EACH TP Q12, PATCH PLACE 1 PATCH ONTO SKIN Q12H ON / Q12H OFF 05/24/17 Ezetimibe* (Zetia*) 10 Mg Tablet, 10 MG PO DAILY, TAB 05/24/17 Insulin Lispro (Humalog Kwikpen U-100) 100 Unit/1 Ml Insuln.pen, 22 UNIT SQ INJECT 22units IF EATS >50% OR 10units IF EATS < 50% OF MEAL ; TID 05/24/17 Spironolactone* (Aldactone*) 25 Mg Tablet, 200 MG PO DAILY, #30 TAB 05/24/17 Pantoprazole* (Protonix*) 40 Mg Tablet.dr, 40 MG PO DAILY, TAB 08/23/16 Allergies Allergies: Coded Allergies: No Known Drug Allergy (Verified Allergy, Unknown, 04/12/17) PMhx/Soc Medical and Surgical Hx: pt denies Surgical Hx History of Surgery: No Anesthesia Reaction: No Hx Neurological Disorder: No Hx Respiratory Disorders: No Hx Cardiac Disorders: Yes (3 stents) Hx Psychiatric Problems: No Hx Miscellaneous Medical Probl: Yes (CAD s/p stents, DM, GIB, pancreatitis, liver cirrhosis) Hx Alcohol Use: Yes Hx Substance Use: No Hx Tobacco Use: Yes (previous smoker quit in 2013) Smoking Status: Current every day smoker Physical Exam Vitals Vital Signs Date Time Temp Pulse Resp B/P Pulse Ox O2 Delivery O2 Flow Rate FiO2 06/15/17 09:25 97.9 72 18 142/62 97 Physical Exam Const: Frail-appearing elderly male no acute distress Head: Atraumatic Eyes: Normal Conjunctiva ENT: Normal External Ears, Nose and Mouth. Neck: Full range of motion..~ No meningismus. Resp: Clear to auscultation bilaterally Cardio: Regular rate and rhythm, no murmurs Abd: Soft, non tender, Mild abdominal distention Normal bowel sounds Skin: No petechiae or rashes Back: No midline or flank tenderness Ext: No cyanosis, or edema Neur: Awake and alert Psych: Normal Mood and Affect Result Diagram: 06/15/17 1610 Results 24 hrs Laboratory Tests Test 06/15/17 16:10 White Blood Count 4.710^3/ul Red Blood Count 3.9210^6/ul Hemoglobin 11.1g/dl Hematocrit 33.5% Mean Corpuscular Volume 85.5fl Mean Corpuscular Hemoglobin 28.3pg Mean Corpuscular Hemoglobin Concent 33.1g/dl Red Cell Distribution Width 20.4% Platelet Count 33561^3/UL Mean Platelet Volume 10.0fl Neutrophils % 72.1% Lymphocytes % 13.7% Monocytes % 11.8% Eosinophils % 1.3% Basophils % 0.9% Nucleated Red Blood Cells % 0.0/100WBC Neutrophils # (Manual) 3.410^3/ul Lymphocytes # 0.610^3/ul Monocytes # 0.610^3/ul Eosinophils # 0.110^3/ul Basophils # 0.010^3/ul Nucleated Red Blood Cells # 0.010^3/ul Prothrombin Time 19.3Sec Prothrombin Time Ratio 1.5 INR International Normalized Ratio 1.61 Activated Partial Thromboplast Time 39.9Sec Current Medications Medications (Trade) Dose Ordered Sig/Lisa Route PRN Reason Start Time Stop Time Status Last Admin Dose Admin Acetaminophen/ Hydrocodone Bitart ([place] (5/325)) 1 tab ONCE ONCE PO 06/15/17 14:00 06/15/17 14:01 DC 06/15/17 14:06 Procedures/MDM Ultrasound: No ascites This 46-year-old male presents to the ER for evaluation of abdominal cramping. The patient under went an ultrasound for paracentesis which did not demonstrate any fluid. The patient states that he is having some abdominal cramping. He is been afebrile, hemodynamically stable and nontoxic appearing in the emergency room. The patient was given 0.5 mg of intramuscular Dilaudid, and 5 mg of intramuscular Reglan for nausea. He will be discharged home at this time. Departure Diagnosis: Primary Impression: Abdominal pain Condition: Stable TOMMY LEWIS DO Jun 15, 2017 18:04
[2017-06-15] MEDS ORDERED: METO5TAB58 PO (18:05)
[2017-06-15 18:18] LABS: ALBUMIN 2.9 g/dl (3.3-4.9); ALBUMIN/GLOBULIN RATIO 0.61; CALCIUM 8.4 mg/dl (8.4-10.2); CREATININE 0.89 mg/dl (0.61-1.24); POTASSIUM 4.4 mmol/L (3.5-5.1); TOTAL PROTEIN 7.6 g/dl (6.1-8.1)
--- NOTE | 2017-06-15 18:29 | RADRPT ---
PROCEDURE: Ultrasound of the four quadrants of the abdomen. CLINICAL INDICATION: Ascites. TECHNIQUE: Acosta scale sonographic evaluation of the four quadrants of the abdomen was performed. COMPARISON: Exam dated 05/25/2017. FINDINGS: There is no ascites. No focal drainable fluid collection is identified within the abdomen. IMPRESSION: 1. No significant ascites or focal drainable fluid collection. RPTAT: HLBP .Nicolas Ambrocio MD, MD Date Time Electronically viewed and signed by .Nicolas Ambrocio MD, MD on 06/15/2017 18:29 .P/
[2017-06-15] MEDS ORDERED: METOCLOPRAMIDE 10 MG INJ IM ONE (18:30)
[2017-06-15 18:56] VITALS: BP 112/64; PULSE 75; RESP 18; TEMP 97.7
== END 2017-06-15 18:58 | disposition home or self-care (01) ==
LOC: E/R 09:23
DX: R14.0 Abdominal distension (gaseous) (principal); I25.10 Atherosclerotic heart disease of native coronary artery without angina pectoris; E11.9 Type 2 diabetes mellitus without complications; F17.210 Nicotine dependence, cigarettes, uncomplicated; Z79.4 Long term (current) use of insulin; Z98.61 Coronary angioplasty status
CPT/HCPCS: 36415; 76705; 80053; 83690; 85025; 85610; 85730; 96372; J1170; J2765; Z7502; Z7610

== ENCOUNTER 2017-06-19 05:08 | Emergency (ER) | payer MEDICAID ==
[~2017-06-19] VITALS: Ht 160 cm; Wt 72.0 kg
[~2017-06-19 05:08] MED LIST changes: +METO5TAB58 PO
[2017-06-19 05:15] VITALS: Ht 160 cm; Wt 72.0 kg
[2017-06-19] MEDS ORDERED: ASPIRIN 325 MG TAB PO STA (05:16)
[2017-06-19] MEDS ORDERED: KETOROLAC 15 MG INJ IV STA (05:42)
--- NOTE | 2017-06-19 05:54 | RADRPT ---
PROCEDURE: Chest. CLINICAL INDICATION: Chest pain. TECHNIQUE: Single frontal view of the chest was obtained. COMPARISON: 06/06/2017. FINDINGS: There is a right-sided PICC line extending to the SVC. The cardiac silhouette is within normal limit s. The aortic arch is unremarkable. There is no focal consolidation, vascular congestion or pleura l effusion. There is no pneumothorax. IMPRESSION: No evidence for active cardiopulmonary disease. Right-sided PICC line in place. .Chris Hendrickson MD, Date Time Electronically viewed and signed by .Chris Hendrickson MD, on 06/19/2017 05:53 .T/
[2017-06-19 06:09] LABS: BASOPHIL # 0.1 10^3/ul (0.0-0.1); BASOPHILS % 0.8 % (0.0-2.0); EOSINOPHILS # 0.1 10^3/ul (0.0-0.5); EOSINOPHILS % 1.4 % (0.0-7.0); HEMATOCRIT 38.3 % (42.0-52.0); HEMOGLOBIN 12.7 g/dl (14.0-18.0); LYMPHOCYTES % 15.8 % (15.0-51.0); MEAN CORPUSCULAR HEMOGLOBIN 28.2 pg (29.0-33.0); MEAN CORPUSCULAR HGB CONC 33.2 g/dl (32.0-37.0); MEAN CORPUSCULAR VOLUME 84.9 fl (82.0-101.0); MEAN PLATELET VOLUME 10.2 fl (7.4-10.4); MONOCYTE # 0.8 10^3/ul (0.3-0.9); MONOCYTES % 11.9 % (0.0-11.0); NEUTROPHILS % 69.6 % (39.0-77.0); PLATELET COUNT 158 10^3/UL (140-415); RED BLOOD COUNT 4.51 10^6/ul (4.70-6.10); RED CELL DISTRIBUTION WIDTH 20.5 % (11.5-14.5); WHITE BLOOD COUNT 6.5 10^3/ul (4.8-10.8)
[2017-06-19 06:17] LABS: CALCIUM 9.9 mg/dl (8.4-10.2); CREATININE 0.86 mg/dl (0.61-1.24); POTASSIUM 4.3 mmol/L (3.5-5.1)
[2017-06-19 06:28] LABS: TROPONIN-I 0.027 ng/ml (0.00-0.12)
[2017-06-19] MEDS ORDERED: morphine 4 MG/ML VIAL IV STA (06:29)
[2017-06-19] MEDS ORDERED: OXYC-279 PO (06:32)
[2017-06-19 08:31] VITALS: BP 102/58; PULSE 79; RESP 18; TEMP 97.9
--- NOTE | 2017-06-19 11:04 | ERD ---
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 He has had a few episodes of clear nonbloody nonbilious emesis at home and complains of full body ache. Patient denies chest pain upon my evaluation and states his entire body hurts and who is at the bedside states his symptoms began really about 2 days ago when he ran out of his oral opioid analgesics. He also underwent hemodialysis recently and is scheduled 3 times a week. He takes opioid analgesics at home on a daily basis even multiple times. ROS All systems reviewed and are negative except as per history of present illness. Medications Home Meds Active Scripts Oxycodone HCl/Acetaminophen (Percocet 5-325 mg Tablet) 1 Each Tablet, 1 EACH PO TID for PAIN, #12 TAB Prov:DUONG SALMERON MD 06/19/17 Metoclopramide* (Reglan*) 5 Mg Tablet, 5 MG PO Q6H Y for NAUSEA AND OR VOMITING for 3 Days, TAB Prov:TOMMY LEWIS DO 06/15/17 Lactulose* (Cephulac*) 20 Gm/30 Ml Soln, 26.7 GM PO BID for 30 Days Prov:MALKA VU 06/06/17 Insulin Glargine* (Lantus*) 100 Unit/Ml Soln, 25 UNIT SC DAILY@20 for 30 Days Prov:MALKA VU 06/06/17 Reported Medications Dextran/Hypromellose/Glycerin (Artificial Tears Drops) 15 Ml Drops, 2 DROP BOTH EYES TID Y for PRN, EA 05/24/17 Melatonin-Pyridoxine Hcl (Melatonin) 5-10 Mg Tablet, 5 TAB PO HS, TAB 05/24/17 Fluocinonide* (Fluocinonide* Cream) 0.1% - 120 Gm Cream..g., 1 APPLIC TOP BID, TUB 05/24/17 Rifaximin* (Xifaxan*) 550 Mg Tablet, 550 MG PO BID, TAB 05/24/17 Diphenhydramine Hcl* (Diphenhydramine Hcl*) 25 Mg Capsule, 25 MG PO Q6 Y for ITCHING, CAP 05/24/17 Cyanocobalamin* (Vitamin B12*) 500 Mcg Tab, 500 MCG PO DAILY, TAB 05/24/17 Calcium Acetate* (Calcium Acetate*) 667 Mg Capsule, 667 MG PO WITH MEALS, #30 CAP 05/24/17 Midodrine* (Midodrine*) 5 Mg Tablet, 5 MG PO TID, TAB 05/24/17 Clopidogrel Bisulfate* (Clopidogrel Bisulfate*) 75 Mg Tablet, 75 MG PO DAILY, # 30 TAB 05/24/17 Lidocaine/Menthol (LIDOPATCH) 1 Each Adh..patch, 1 EACH TP Q12, PATCH PLACE 1 PATCH ONTO SKIN Q12H ON / Q12H OFF 05/24/17 Ezetimibe* (Zetia*) 10 Mg Tablet, 10 MG PO DAILY, TAB 05/24/17 Insulin Lispro (Humalog Kwikpen U-100) 100 Unit/1 Ml Insuln.pen, 22 UNIT SQ INJECT 22units IF EATS >50% OR 10units IF EATS < 50% OF MEAL ; TID 05/24/17 Spironolactone* (Aldactone*) 25 Mg Tablet, 200 MG PO DAILY, #30 TAB 05/24/17 Pantoprazole* (Protonix*) 40 Mg Tablet.dr, 40 MG PO DAILY, TAB 08/23/16 Allergies Allergies: Coded Allergies: No Known Drug Allergy (Verified Allergy, Unknown, 04/12/17) PMhx/Soc Opioid dependence, cirrhosis, recurrent ascites, end-stage kidney disease with recent hemodialysis, chronic pain syndrome, diabetes mellitus, hypertension History of Surgery: No Anesthesia Reaction: No Hx Neurological Disorder: No Hx Respiratory Disorders: No Hx Cardiac Disorders: Yes (3 stents) Hx Psychiatric Problems: No Hx Miscellaneous Medical Probl: Yes (CAD s/p stents, DM, GIB, pancreatitis, liver cirrhosis) Hx Alcohol Use: Yes Hx Substance Use: No Hx Tobacco Use: Yes (previous smoker quit in 2013) Smoking Status: Never smoker FmHx Family History: No diabetes Physical Exam Vitals Vital Signs Date Time Temp Pulse Resp B/P Pulse Ox O2 Delivery O2 Flow Rate FiO2 06/19/17 08:31 97.9 79 18 102/58 99 Room Air 06/19/17 06:40 82 18 123/72 99 Room Air 06/19/17 05:18 97.9 97 18 96/79 100 Room Air 06/19/17 05:15 97.7 87 18 97/61 96 Physical Exam GENERAL: Well-developed, well-nourished, appears to be withdrawing, afebrile HEENT: Moist mucous membranes, pink conjunctiva, no cervical spine tenderness or step-off deformities, no goiter, no jaundice or icterus, extraocular movements intact without pain. No submandibular induration, and no pharyngeal erythema NEURO: Alert and oriented 3, cranial nerves II through XII intact bilaterally, pupils equal round reactive to light, no focal deficits or facial asymmetry, sensation intact distally Strength 5/5 in upper and lower extremities bilaterally CARDIAC: Regular rate and rhythm, no murmurs rubs or gallops LUNGS: Clear bilaterally no wheezing crackles or stridor ABDOMEN: Soft nontender, no guarding, no rigidity, no rebound, no psoas sign no obturator sign. Normoactive bowel sounds SKIN: Warm and dry to touch, no abrasions, contusions, or hematomas, no lacerations, no ecchymosis, no target lesions, and without ulcers EXTREMITIES: No clubbing cyanosis or edema, calves are bilaterally symmetrical, no Homans sign, no popliteal cord sign. Distal pulses equal and bilateral PSYCH: Anxious Result Diagram: 06/19/1751906/19/17519 Results 24 hrs Laboratory Tests Test 06/19/17 05:20 White Blood Count 6.510^3/ul Red Blood Count 4.5110^6/ul Hemoglobin 12.7g/dl Hematocrit 38.3% Mean Corpuscular Volume 84.9fl Mean Corpuscular Hemoglobin 28.2pg Mean Corpuscular Hemoglobin Concent 33.2g/dl Red Cell Distribution Width 20.5% Platelet Count 89211^3/UL Mean Platelet Volume 10.2fl Neutrophils % 69.6% Lymphocytes % 15.8% Monocytes % 11.9% Eosinophils % 1.4% Basophils % 0.8% Nucleated Red Blood Cells % 0.0/100WBC Neutrophils # (Manual) 4.510^3/ul Lymphocytes # 1.010^3/ul Monocytes # 0.810^3/ul Eosinophils # 0.110^3/ul Basophils # 0.110^3/ul Nucleated Red Blood Cells # 0.010^3/ul Sodium Level 133mmol/L Potassium Level 4.3mmol/L Chloride Level 98mmol/L Carbon Dioxide Level 24mmol/L Anion Gap 15 Blood Urea Nitrogen 15mg/dl Creatinine 0.86mg/dl Glucose Level 191mg/dl Calcium Level 9.9mg/dl Troponin I 0.027ng/ml Current Medications Medications (Trade) Dose Ordered Sig/Lisa Route PRN Reason Start Time Stop Time Status Last Admin Dose Admin Aspirin (Aspirin) 325 mg ONCE STAT PO 06/19/17 05:16 06/19/17 05:17 DC 06/19/17 05:31 Ketorolac Tromethamine (Toradol) 15 mg ONCE STAT IV 06/19/17 05:42 06/19/17 05:44 DC 06/19/17 05:50 Morphine Sulfate (morphine) 4 mg ONCE STAT IV 06/19/17 06:29 06/19/17 06:30 DC 06/19/17 06:45 Procedures/MDM Patient was placed on air sampling and monitoring rhythm strip revealed a sinus rhythm at about 90 bpm with upright P and T waves. Patient was afebrile. Belly appears soft and without distention, patient does not require paracentesis at this time. EKG performed, read by me revealed a normal sinus rhythm at 97 bpm, normal axis , narrow QRS complex, no concerning ST elevations or depressions noted. I administered morphine 4 mg IV for opioid withdrawal. CBC and electrolytes are normal, troponin negative. Differential diagnoses considered, included but not limited to acute coronary syndrome, pulmonary embolism, aortic dissection, abdominal aortic aneurysm, sepsis, stroke, meningitis, encephalitis, pneumonia, appendicitis, cholecystitis , bowel obstruction, pyelonephritis, nephrolithiasis, cystitis, as well as metabolic, hematologic, and electrolyte abnormalities. As well as abscess, cellulitis, fractures, and dislocations. Patient feels much better at this time, and vital signs are normal, symptoms have improved. I did give strict instructions to return to the ED if symptoms continue or worsen, patient will otherwise follow-up with primary care physician. Patient understood instructions and agreed to plan. Disclaimer: Inadvertent spelling and grammatical errors are likely due to EHR/ dictation software use and do not reflect on the overall quality of patient care. Also, please note that the electronic time recorded on this note does not necessarily reflect the actual time of the patient encounter. Departure Diagnosis: Primary Impression: Vomiting Vomiting type: unspecified Vomiting Intractability: non-intractable Nausea presence: with nausea Qualified Code: R11.2 - Non-intractable vomiting with nausea, unspecified vomiting type Additional Impressions: Chronic pain Chronic pain type: chronic pain syndrome Qualified Code: G89.4 - Chronic pain syndrome Opioid withdrawal Condition: Good Patient Instructions: Chronic Pain, Vomiting (6Y-Adult) DUONG SALMERON MD Jun 19, 2017 11:03
== END 2017-06-19 08:32 | disposition home or self-care (01) ==
LOC: E/R 05:08
DX: R11.2 Nausea with vomiting, unspecified (principal); G89.4 Chronic pain syndrome; F11.23 Opioid dependence with withdrawal; E11.22 Type 2 diabetes mellitus with diabetic chronic kidney disease; N18.6 End stage renal disease; I12.0 Hypertensive chronic kidney disease with stage 5 chronic kidney disease or end stage renal disease; Z99.2 Dependence on renal dialysis; Z79.4 Long term (current) use of insulin; Z79.01 Long term (current) use of anticoagulants
CPT/HCPCS: 36415; 71010; 80048; 84484; 85025; 93005; 96374; 96375; J1885; J2270; Z7502; Z7610

== ENCOUNTER 2017-08-05 21:24 | Inpatient (IN) | payer MEDICAID ==
[~2017-08-05] VITALS: Ht 160 cm; Wt 59.9 kg
[~2017-08-05 21:24] MED LIST changes: +OXYC-279 PO
[2017-08-05] MEDS ORDERED: NITROGLYCERIN 2% 1 GM OINT PKT TD STA (21:30)
[2017-08-05] MEDS ORDERED: NITROGLYCERIN (SL) 0.4 MG TAB SL PRN (21:30)
[2017-08-05 21:59] LABS: BASOPHILS % 0.4 % (0.0-2.0); EOSINOPHILS # 0.1 10^3/ul (0.0-0.5); EOSINOPHILS % 0.7 % (0.0-7.0); HEMATOCRIT 31.2 % (42.0-52.0); HEMOGLOBIN 10.7 g/dl (14.0-18.0); LYMPHOCYTES # 0.7 10^3/ul (0.8-2.9); LYMPHOCYTES % 6.4 % (15.0-51.0); MEAN CORPUSCULAR HEMOGLOBIN 30.1 pg (29.0-33.0); MEAN CORPUSCULAR HGB CONC 34.3 g/dl (32.0-37.0); MEAN CORPUSCULAR VOLUME 87.9 fl (82.0-101.0); MEAN PLATELET VOLUME 10.1 fl (7.4-10.4); MONOCYTE # 1.2 10^3/ul (0.3-0.9); MONOCYTES % 11.2 % (0.0-11.0); NEUTROPHIL # 8.4 10^3/ul (1.6-7.5); NEUTROPHILS % 80.8 % (39.0-77.0); PLATELET COUNT 223 10^3/UL (140-415); RED BLOOD COUNT 3.55 10^6/ul (4.70-6.10); RED CELL DISTRIBUTION WIDTH 17.7 % (11.5-14.5); WHITE BLOOD COUNT 10.4 10^3/ul (4.8-10.8)
[2017-08-05] MEDS ORDERED: LANT3I SC (22:29)
[2017-08-05 22:30] VITALS: TEMP 97.9
[2017-08-05] MEDS ORDERED: ACETAMINOPHEN 325 MG TAB PO PRN (23:00)
--- NOTE | 2017-08-05 23:00 | RADRPT ---
PROCEDURE: XR Chest. CLINICAL INDICATION: Chest pain. TECHNIQUE: Single frontal view of the chest. COMPARISON: 02/06/2017. FINDINGS: The cardiomediastinal silhouette is within normal limits. Improved lung inflation over interval with interval resolution of previously seen discoid atelectasis at the right lung base and mild atelecta sis at the left lung base. The lungs are clear. No signs of pleural fluid or pneumothorax are seen. The osseous structures and soft tissues are unremarkable. IMPRESSION: 1. Improved lung inflation over interval with resolution of previously seen lung base atelectasis. 2. No evidence for active cardiopulmonary disease. RPTAT: [facility] Physician Gibson Date Time Electronically viewed and signed by Physician Gibson on 08/05/2017 23:00 RS/
--- NOTE | 2017-08-05 23:30 | ERD ---
ER Documentation Chief Complaint Chief Complaint BIBA RA81,C/O SUBSTERNAL CP,REC'D ASPIRIN & NITRO SPRAY HPI Patient is a 56-year-old male with diabetes and ascites who presents with chest pain and shortness of breath. He said that he has had decreased intake by mouth over the past few days and had vomiting but no blood. He has mid epigastric and sternal pain and shortness of breath. He says "I cannot breathe. " He has no abdominal swelling however which he has had in the past from his ascites. He was given aspirin nitroglycerin by paramedics and was brought in by ambulance. Upon review of old medical records the patient has multiple visits for ascites but he is not here for that today. ROS All systems reviewed and are negative except as per history of present illness. Medications Home Meds Active Scripts Oxycodone HCl/Acetaminophen (Percocet 5-325 mg Tablet) 1 Each Tablet, 1 EACH PO TID for PAIN, #12 TAB Prov:DUONG SALMERON MD 06/19/17 Metoclopramide* (Reglan*) 5 Mg Tablet, 5 MG PO Q6H Y for NAUSEA AND OR VOMITING for 3 Days, TAB Prov:TOMMY LEWIS DO 06/15/17 Lactulose* (Cephulac*) 20 Gm/30 Ml Soln, 26.7 GM PO BID for 30 Days Prov:MALKA VU 06/06/17 Reported Medications Insulin Glargine* (Lantus*) 100 Unit/Ml Soln, 34 UNIT SC QHS for 30 Days, #1 VIAL 08/05/17 Dextran/Hypromellose/Glycerin (Artificial Tears Drops) 15 Ml Drops, 2 DROP BOTH EYES TID Y for PRN, EA 05/24/17 Melatonin-Pyridoxine Hcl (Melatonin) 5-10 Mg Tablet, 5 TAB PO HS, TAB 05/24/17 Fluocinonide* (Fluocinonide* Cream) 0.1% - 120 Gm Cream..g., 1 APPLIC TOP BID, TUB 05/24/17 Rifaximin* (Xifaxan*) 550 Mg Tablet, 550 MG PO BID, TAB 05/24/17 Diphenhydramine Hcl* (Diphenhydramine Hcl*) 25 Mg Capsule, 25 MG PO Q6 Y for ITCHING, CAP 05/24/17 Cyanocobalamin* (Vitamin B12*) 500 Mcg Tab, 500 MCG PO DAILY, TAB 05/24/17 Calcium Acetate* (Calcium Acetate*) 667 Mg Capsule, 667 MG PO WITH MEALS, #30 CAP 05/24/17 Midodrine* (Midodrine*) 5 Mg Tablet, 5 MG PO TID, TAB 05/24/17 Clopidogrel Bisulfate* (Clopidogrel Bisulfate*) 75 Mg Tablet, 75 MG PO DAILY, # 30 TAB 05/24/17 Lidocaine/Menthol (LIDOPATCH) 1 Each Adh..patch, 1 EACH TP Q12, PATCH PLACE 1 PATCH ONTO SKIN Q12H ON / Q12H OFF 05/24/17 Ezetimibe* (Zetia*) 10 Mg Tablet, 10 MG PO DAILY, TAB 05/24/17 Insulin Lispro (Humalog Kwikpen U-100) 100 Unit/1 Ml Insuln.pen, 22 UNIT SQ DAILY INJECT 22units IF EATS >50% OR 10units IF EATS < 50% OF MEAL ; TID 05/24/17 Spironolactone* (Aldactone*) 25 Mg Tablet, 200 MG PO DAILY, #30 TAB 05/24/17 Pantoprazole* (Protonix*) 40 Mg Tablet.dr, 40 MG PO DAILY, TAB 08/23/16 Discontinued Scripts Insulin Glargine* (Lantus*) 100 Unit/Ml Soln, 25 UNIT SC DAILY@20 for 30 Days Prov:MALKA VU 06/06/17 Allergies Allergies: Coded Allergies: No Known Drug Allergy (Unverified Allergy, Unknown, 08/05/17) PMhx/Soc History of Surgery: Yes (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 ) Anesthesia Reaction: Yes Hx Neurological Disorder: No Hx Respiratory Disorders: Yes Hx Cardiac Disorders: Yes Hx Psychiatric Problems: No Hx Miscellaneous Medical Probl: Yes (DM, liver cirrhosis) Hx Alcohol Use: No Hx Substance Use: No Hx Tobacco Use: No Smoking Status: Former smoker FmHx Family History: coronary disease Physical Exam Vitals Vital Signs Date Time Temp Pulse Resp B/P Pulse Ox O2 Delivery O2 Flow Rate FiO2 08/05/17 21:27 97.9 105 21 127/87 100 08/05/17 21:26 97.9 118 18 126/68 100 Physical Exam Const: Moderate distress secondary to shortness of breath Head: Atraumatic Eyes: Normal Conjunctiva ENT: Normal External Ears, Nose and Mouth. Neck: Full range of motion..~ No meningismus. Resp: Decreased breath sounds bilaterally Cardio: Regular rate and rhythm, no murmurs Abd: Soft, non tender, non distended. Normal bowel sounds Skin: No petechiae or rashes Back: No midline or flank tenderness Ext: No cyanosis, or edema Neur: Awake and alert Psych: Normal Mood and Affect Result Diagram: 08/05/171 Results 24 hrs Laboratory Tests Test 08/05/17 23:07 White Blood Count 10.410^3/ul Red Blood Count 3.5510^6/ul Hemoglobin 10.7g/dl Hematocrit 31.2% Mean Corpuscular Volume 87.9fl Mean Corpuscular Hemoglobin 30.1pg Mean Corpuscular Hemoglobin Concent 34.3g/dl Red Cell Distribution Width 17.7% Platelet Count 44050^3/UL Mean Platelet Volume 10.1fl Neutrophils % 80.8% Lymphocytes % 6.4% Monocytes % 11.2% Eosinophils % 0.7% Basophils % 0.4% Nucleated Red Blood Cells % 0.0/100WBC Neutrophils # 8.410^3/ul Lymphocytes # 0.710^3/ul Monocytes # 1.210^3/ul Eosinophils # 0.110^3/ul Basophils # 0.010^3/ul Nucleated Red Blood Cells # 0.010^3/ul Current Medications Medications (Trade) Dose Ordered Sig/Lisa Route PRN Reason Start Time Stop Time Status Last Admin Dose Admin Nitroglycerin (Nitroglycerin 2% Oint) 1 inch ONCE STAT TD 08/05/17 21:30 08/05/17 21:31 DC 08/05/17 22:01 Nitroglycerin (Nitroglycerin (Sl Tab) 0.4 Mg) 1 tab Q5M UP TO 3 DOSES PRN SL CHEST PAIN 08/05/17 21:30 Ondansetron HCl (Zofran Inj) 4 mg ER BRIDGE PRN IV NAUSEA AND/OR VOMITING 08/05/17 23:00 08/06/17 22:59 Acetaminophen (Tylenol Tab) 650 mg ER BRIDGE PRN PO MILD PAIN/FEVER 08/05/17 23:00 08/06/17 22:59 Procedures/MDM EKG read by me: Rate/Rhythm: Sinus tachycardia rate of 107 Intervals: Normal Impression: Sinus tachycardia without ischemia PROCEDURE: XR Chest. CLINICAL INDICATION: Chest pain. TECHNIQUE: Single frontal view of the chest. COMPARISON: 02/06/2017. FINDINGS: The cardiomediastinal silhouette is within normal limits. Improved lung inflation over interval with interval resolution of previously seen discoid atelectasis at the right lung base and mild atelectasis at the left lung base. The lungs are clear. No signs of pleural fluid or pneumothorax are seen. The osseous structures and soft tissues are unremarkable. IMPRESSION: 1. Improved lung inflation over interval with resolution of previously seen lung base atelectasis. 2. No evidence for active cardiopulmonary disease. RPTAT: [facility] Physician Gibson Date Time Electronically viewed and signed by Mariann Hansen Physician on 08/05/2017 23:00 Patient is a 56-year-old male with diabetes and ascites who presents with chest pain and shortness of breath. The patient will be admitted to the care of Dr. Morel to a telemetry bed. He was given aspirin nitroglycerin. I am concerned about potential acute coronary syndrome. I doubt pneumonia, pneumothorax, pulmonary embolism, or aortic dissection. BMP and troponin are pending at this time. Departure Diagnosis: Primary Impression: Chest pain Chest pain type: unspecified Qualified Code: R07.9 - Chest pain, unspecified type Condition: ALESIA Abdullahi MD Aug 05, 2017 23:30
[2017-08-05 23:40] LABS: CALCIUM 10.2 mg/dl (8.4-10.2); CREATININE 1.18 mg/dl (0.61-1.24); POTASSIUM 5.6 mmol/L (3.5-5.1)
[2017-08-05 23:51] LABS: TROPONIN-I 0.025 ng/ml (0.00-0.12)
[2017-08-06] VITALS (12 sets, daily range): BP systolic 99–158; BP diastolic 56–87; PULSE 98–130; RESP 16–18; Ht 160 cm; Wt 59.9 kg
[2017-08-06] MEDS ORDERED: NA POLYST SULFON 15 GM/60 ML BTL PO ONE (00:30)
[2017-08-06] MEDS ORDERED: ARTIFICIAL TEARS 15 ML OPH BOTH EYES PRN (00:30)
[2017-08-06] MEDS ORDERED: NACL 0.9% 3 ML SYG IV SCH (00:30)
[2017-08-06] MEDS ORDERED: HYDROCODONE/APAP (5/325) TAB PO PRN (00:30)
[2017-08-06] MEDS ORDERED: morphine 2 MG INJ IV PRN (00:30)
[2017-08-06] MEDS ORDERED: DIPHENHYDRAMINE 25 MG CAP PO PRN (00:30)
[2017-08-06] MEDS ORDERED: DOCUSATE SODIUM 100 MG CAP PO PRN (00:30)
[2017-08-06] MEDS ORDERED: METOCLOPRAMIDE 5 MG TAB PO PRN (00:30)
[2017-08-06] MEDS ORDERED: ONDANSETRON 4 MG INJ IV PRN (00:30)
[2017-08-06] MEDS ORDERED: ACETAMINOPHEN 325 MG TAB PO PRN (00:30)
[2017-08-06] MEDS ORDERED: GLUCAGON 1 MG INJ IM PRN (00:45)
[2017-08-06] MEDS ORDERED: DEXTROSE 50% 50 ML SYRINGE IV PRN ×2 (00:45)
[2017-08-06] MEDS ORDERED: GLUCOSE GEL 15 GRAM TUBE BUCCAL PRN (00:45)
[2017-08-06] MEDS ORDERED: GLUCOSE GEL 15 GRAM TUBE PO PRN ×2 (00:45)
[2017-08-06] MEDS ORDERED: LORAZEPAM 2 MG INJ IV PRN ×2 (02:30→21:00)
[2017-08-06] MEDS ORDERED: TEMAZEPAM 15 MG CAP PO PRN (02:30)
[2017-08-06] MEDS: ACCU-CHEK XX SCH (02:41)
[2017-08-06] MEDS: ONDANSETRON 4 MG INJ IV PRN ×2 (03:28→10:30)
[2017-08-06] MEDS: PANTOPRAZOLE (EC) 40 MG TAB PO SCH (06:01)
[2017-08-06] MEDS ORDERED: CALCIUM ACETATE 667 MG CAP PO SCH (07:55)
[2017-08-06] MEDS: CLOPIDOGREL 75 MG TAB PO SCH (08:16)
[2017-08-06] MEDS: CYANOCOBALAMIN 500 MCG TAB PO SCH (08:16)
[2017-08-06] MEDS: EZETIMIBE 10 MG TAB PO SCH (08:17)
[2017-08-06] MEDS: LACTULOSE 30ML CUP PO SCH ×2 (08:17→21:05)
[2017-08-06] MEDS: MIDODRINE 5 MG TAB PO SCH ×3 (08:17→21:06)
[2017-08-06] MEDS: RIFAXIMIN 550 MG TAB PO SCH ×2 (08:17→21:05)
[2017-08-06] MEDS: INSULIN ASPART [NOVOLOG] 3 ML PEN SC SCH ×4 (08:20→21:15)
[2017-08-06] MEDS ORDERED: FAMOTIDINE 20 MG TAB PO SCH (09:00)
[2017-08-06 09:17] LABS: TROPONIN-I 0.042 ng/ml (0.00-0.12)
[2017-08-06 09:20] LABS: CK-MB 5.93 ng/ml (0.0-2.4)
[2017-08-06] MEDS: FLUOCINONIDE 0.05% 15 GM CR TOP SCH ×2 (10:13→21:13)
[2017-08-06] MEDS ORDERED: FUROSEMIDE 40 MG INJ IV ONE (11:00)
--- NOTE | 2017-08-06 11:02 | QN ---
Documentation Comment Pt seen and examined at bedside. #[id number] KATHARINA GLEASON MD Aug 06, 2017 11:02
[2017-08-06] MEDS: METOCLOPRAMIDE 10 MG INJ IV SCH ×2 (12:08→17:42)
[2017-08-06 12:09] LABS: INR 1.46; PROTIME 17.8 Sec (12.2-14.2); PT RATIO 1.4
[2017-08-06 12:24] LABS: CREATININE 0.93 mg/dl (0.61-1.24)
[2017-08-06] MEDS: ALBUMIN HUMAN 25% 50 ML IV SCH ×2 (12:24→18:00)
[2017-08-06 13:25] LABS: ADD UMIC NO; UR ASCORBIC ACID 40 mg/dL (NEGATIVE); UR BILIRUBIN (Dip) NEGATIVE (NEGATIVE); UR BLOOD (Dip) NEGATIVE (NEGATIVE); UR CLARITY CLEAR (CLEAR); UR COLOR YELLOW (YELLOW); UR GLUCOSE (Dip) 1+ mg/dL (NEGATIVE); UR KETONES (Dip) NEGATIVE (NEGATIVE); UR LEUKOCYTE ESTERASE (Dip) NEGATIVE Leu/ul (NEGATIVE); UR NITRITE (Dip) NEGATIVE (NEGATIVE); UR SPECIFIC GRAVITY (Dip) 1.015 (1.003-1.030); UR TOTAL PROTEIN (Dip) NEGATIVE (NEGATIVE); UR UROBILINOGEN (Dip) NEGATIVE (NEGATIVE)
--- NOTE | 2017-08-06 13:42 | HP ---
DATE OF ADMISSION: 08/05/2017 REASON FOR ADMISSION: Chest pain and abdominal pain. HISTORY OF PRESENT ILLNESS: This is a 56-year-old male with a past medical history of liver cirrhos is, status post portal shunt tips in 2017 for recurrent ascites, history of esophageal varices, ETOH abuse, chronic pancreatitis. He has history of coronary artery disease status post 3 stents at [facility], history of encephalopathy, diabetes, anemia, status post EGD on 06/03/2017 with gastroparesis, wh o was admitted to [facility] from 05/24/2017 to 06/06/2017 with a prolonged hospit alization course. At that time, patient was found to have severe sepsis with Staphylococcus bactere maryjo and fungemia. Patient was followed by multiple consultants. Patient was discharged home in a s table condition. However, according to the patient since the last discharge, he has been admitted, one time to [facility] for altered mental status. He was found to have hepatic encephalopathy an d UTI and was discharged home in 2 to 3 days. The second time, he got admitted again for hepatic en cephalopathy and vertigo [facility]. Although according to the patient, overall his condition has been deteriorating. Since the last 5 d ays, he has been unable to eat anything p.o. He has been also having some epigastric pain. He feel s that everything is stuck there. He has hardly eaten anything. Every time he drinks, he vomits ou t. The patient also has been feeling weak, dizzy. The patient has also on and off experienced left -sided chest pain and also shortness of breath. According to the patient, he is also having worseni ng bilateral lower extremity swelling for the last few weeks. Per , the patient has been taking Lasix and Aldactone at home, but has not been urinating much, but it has been less for the last few days. Per patient, he has also started noticing a blackish discoloration of the right great toe th at probably started when he hit himself while on the wheelchair, but there were no fevers, no chills . Due to persistent complaints, the family was worried and patient was brought into the ER. On arriva l to ED, vital signs were temperature 99.0, heart rate was 112, respirations 16, blood pressure 154/ 87. Sodium was 125, potassium 5.6, bicarbonate 25, BUN 24, creatinine 1.18. Troponin 0.025 and the patient was given aspirin, nitro and was admitted for further management. A chest x-ray was essent ially negative. PAST MEDICAL HISTORY: 1. Liver cirrhosis. 2. Chronic pancreatitis. 3. Recurrent ascites, status post TIPS placement in 2017. 4. History of coronary artery disease status post PCI x3. 5. Diabetes. 6. Hypertension. 7. Bilateral lower extremity edema. 8. Anemia. 9. History of gastroparesis. ALLERGIES: NONE. PAST SURGICAL HISTORY: TIPS placement and cardiac stents. SOCIAL HISTORY: Denies any history of smoking, alcohol or any drug use. Currently lives at home wi th his and uses a wheelchair. FAMILY HISTORY: Noncontributory. REVIEW OF SYSTEMS: The patient complained of decreased p.o. intake, nausea, vomiting, also have jean e epigastric pain, left-sided chest pressure, some shortness of breath, worsening bilateral lower ex tremity edema with some bleeding from the gums. Denies any hematemesis, any melena, any bright red blood per rectum. Denies any headache, any blurry vision. Also noted to have decreased urine outpu t. PHYSICAL EXAMINATION VITAL SIGNS: Temperature 99.0, heart rate 112, now currently 104, blood pressure 154/87. GENERAL: The patient is awake, alert, oriented, appears to be in mild distress. Oral mucosa is dry . Some bleeding noted on the lips. NECK: Supple, minimal JVD. HEART: Regular tachycardia. LUNGS: Decreased breaths sounds bilaterally. ABDOMEN: Soft, distended. Minimal ascites. EXTREMITIES: 2 to 3+ edema lower extremities. Right great toe has a 3 x 4 cm area of black eschar. Pulses could not be appreciated because of the severe bilateral lower extremity edema. LABORATORIES: Sodium 125, potassium 5.6, chloride 95, bicarbonate 25, BUN of 24, creatinine 1.18, c alcium 10.2. Troponin is 0.025. White count is 10.4, hemoglobin 10.7, platelet count 223. PT INR pending. UA not sent. EKG does not show any acute ST or T wave changes. The patient has sinus tachycardia. Chest x-ray, improved lung inflation over interval with resolution of previously lung base atelectas is. ASSESSMENT AND PLAN: This is a 56-year-old male presenting with: 1. Abdominal pain, nausea, vomiting, unable to take anything p.o. There are multiple possibilities in this patient. The patient has history of chronic pancreatitis. Also, patient had an EGD done b y Dr. Jimenes that showed patient's severe esophagus varicose vein had completely subsided, gastropa thy severe gastroparesis. 2. Chest pain, shortness of breath could be deconditioning; however, the patient has history of cor onary artery disease, cannot rule out ischemia. 3. Hyponatremia, likely hypervolemic state. 4. Hyperkalemia. Patient is in hypervolemic state, plus the patient has not been eating for the pa st few days, plus patient was taking spironolactone. 5. Mild acute kidney injury, likely secondary to poor p.o. intake third spacing plus taking diureti cs. 6. Bilateral lower extremity edema could be secondary to liver cirrhosis versus CHF. 7. Right toe questionable gangrene. 8. Diabetes, uncontrolled. 9. History of staph and fungus bacteremia. 10. History of urinary tract infection. PLAN: The patient is admitted to telemetry. We will keep the patient n.p.o., some Reglan, Zofran, Pepcid. A GI consult with Dr. Jimenes. Kayexalate has already been given. We will continue the pat ient on IV Lasix. Echo, cardiology consult, duplex for right lower extremity. Podiatry consult. T he rest of the treatment will depend on the patient's hospitalization course. We will also check fo r LFTs, PATIENT, INR. Dictated By: KATHARINA BAUM/ADRIANNA Conf#: [id number] DID#: [id number]
[2017-08-06] MEDS ORDERED: NITROGLYCERIN (SL) 0.4 MG TAB SL PRN (14:00)
[2017-08-06 14:39] LABS: ALBUMIN 2.8 g/dl (3.3-4.9); ALBUMIN/GLOBULIN RATIO 0.7; CALCIUM 9.1 mg/dl (8.4-10.2); CREATININE 0.94 mg/dl (0.61-1.24); POTASSIUM 4.7 mmol/L (3.5-5.1); TOTAL PROTEIN 6.8 g/dl (6.1-8.1)
[2017-08-06 14:52] LABS: CK-MB 5.3 ng/ml (0.0-2.4); TROPONIN-I 0.024 ng/ml (0.00-0.12)
[2017-08-06] MEDS ORDERED: LORAZEPAM 2 MG INJ IV ONE (17:00)
--- NOTE | 2017-08-06 17:05 | RADRPT ---
PROCEDURE: US Lower extremity Arteries. CLINICAL INDICATION: Right foot gangrene TECHNIQUE: Multiple longitudinal and transverse images of the bilateral lower extremity arteries w ere obtained with tay scale and color Doppler imaging. COMPARISON: No prior studies are available for comparison. FINDINGS: VesselRightLeft KFM414 cm/sec98 cm/sec HSF645 cm/sec 107 cm/sec ESG35-193 cm/csr98-716 cm/sec ICZ998 cm/sec79 cm/sec PTA67 cm/sec24 cm/sec DPA39 cm/sec27 cm/sec Multiphasic flow is seen within the bilateral common femoral, superficial femoral, popliteal, senior relationship manager ior tibial, and dorsalis pedis arteries. Arterial pressure indices: VesselRightLeft PTcalcifiedcalcified DPcalcifiedcalcified [id number] There are calcifications along the bilateral posterior tibial and dorsalis pedis arteries. IMPRESSION: 1. No focal stenosis is identified along the bilateral lower extremity arteries. 2. Calcifications along the bilateral posterior tibial and dorsalis pedis arteries. 3. Decreased KITA measurement in the right toe (0.85), consistent with mild peripheral artery disease . Bilateral posterior tibial and dorsalis pedis artery KITA measurements could not be obtained due to arterial calcifications. RPTAT: HTAR .Sang Delatorre MD, MD Date Time Electronically viewed and signed by .Sang Delatorre MD, on 08/06/2017 17:05 .R/
--- NOTE | 2017-08-06 17:18 | RADRPT ---
Echocardiogram Report Patient Name: KIA TREJO Gender: Male Date: 1960 Study Date: 06-Aug-2017 [employer]: [facility] Location: [address] Ref. Physician: BERNARD BERGERON Quality: Good Procedures: Transthoracic echocardiogram with complete 2D, M-Mode, and doppler examination. Indications: Chest Pain. 2D/M Mode Doppler Measurement Value Normal Ranges Measurement Value Normal Ranges AoR Diam MM 2.9 cm AUDELIA Vmax 2.0 cm2 ACS MM 1.9 cm AUDELIA VTI 2.0 cm2 LA/Ao MM 1.1 AV Peak Karel 1.4 m/sec LA Dimen MM 3.1 cm AV Peak PG 8.0 mmHg LVIDd 2D 4.4 3.5 - 5.6 cm LVOT Peak Karel 1.0 m/sec LVIDs 2D 3.0 2.1 - 4.1 cm LVOT Peak PG 4.4 mmHg LVPWd 2D 1.0 0.6 - 1.1 cm MV E Peak Karel 0.8 m/sec IVSd 2D 1.0 0.6 - 1.1 cm MV A Peak Karel 1.1 m/sec EDV 2D 88.2 cm3 MV E/A 0.7 ESV 2D 27.3 cm3 MV Decel Time 316 msec EF 2D 60.0 50.0 - 65.0 % MV Decel Clinch 3 LVOT Diam 1.8 cm MV E/A 0.7 Findings Left Ventricle: Normal left ventricular systolic function. Normal left ventricular cavity size. Normal left ventricular wall thickness. Ejection fraction is visually estimated at 6065 %. Tissue Doppler/Mitral Doppler indices are within normal limits. Right Ventricle: Normal right ventricular size. Normal right ventricular systolic function. Left Atrium: The left atrium is normal in size. Right Atrium: The right atrium is normal in size. Mitral Valve: Normal appearance and function of the mitral valve with trace physiologic regurgitation. Aortic Valve: Normal appearance of the aortic valve. No significant aortic stenosis or insufficiency. Tricuspid Valve: Normal appearance of the tricuspid valve. Normal appearance and function of the tricuspid valve with trace physiologic regurgitation. Unable to obtain RVSP due to minimal presence of tricuspid regurgitation. Pulmonic Valve: Normal pulmonic valve appearance. Pericardium: Normal pericardium with no significant pericardial effusion. Aorta: Normal aortic root. IVC: Normal size and normal respiratory collapse consistent with normal right atrial pressure. Conclusions 1.Normal left ventricular systolic function. Normal left ventricular cavity size. Normal left ventricular wall thickness. Ejection fraction is visually estimated at 60-65 %. Tissue Doppler/Mitral Doppler indices are within normal limits. 2.Normal appearance and function of the mitral valve with trace physiologic regurgitation. 3.Normal appearance and function of the tricuspid valve with trace physiologic regurgitation. Unable to obtain RVSP due to minimal presence of tricuspid regurgitation. Electronically Signed By: Bernard Bergeron 06-Aug-2017 17:17:42 -0700 Patient Name: KIA TREJO Study Date: 06-Aug-[id number]
[2017-08-06] MEDS: INSULIN GLARGINE [LANtus] 3 ML PEN SC SCH (21:12)
[2017-08-07] VITALS (11 sets, daily range): BP systolic 100–110; BP diastolic 58–62; PULSE 93–101; RESP 16–20
[2017-08-07] MEDS: METOCLOPRAMIDE 10 MG INJ IV SCH ×4 (00:13→18:39)
[2017-08-07] MEDS: ACCU-CHEK XX SCH (02:00)
[2017-08-07] MEDS: ALBUMIN HUMAN 25% 50 ML IV SCH (03:00)
[2017-08-07] MEDS: PANTOPRAZOLE (EC) 40 MG TAB PO SCH (05:32)
[2017-08-07] MEDS: INSULIN ASPART [NOVOLOG] 3 ML PEN SC SCH ×4 (07:55→22:06)
[2017-08-07 08:23] LABS: BASOPHILS % 0.3 % (0.0-2.0); EOSINOPHILS # 0.1 10^3/ul (0.0-0.5); EOSINOPHILS % 1.3 % (0.0-7.0); HEMATOCRIT 23.5 % (42.0-52.0); HEMOGLOBIN 7.9 g/dl (14.0-18.0); LYMPHOCYTES # 0.6 10^3/ul (0.8-2.9); LYMPHOCYTES % 9.1 % (15.0-51.0); MEAN CORPUSCULAR HEMOGLOBIN 28.7 pg (29.0-33.0); MEAN CORPUSCULAR HGB CONC 33.6 g/dl (32.0-37.0); MEAN CORPUSCULAR VOLUME 85.5 fl (82.0-101.0); MEAN PLATELET VOLUME 10.6 fl (7.4-10.4); MONOCYTE # 0.9 10^3/ul (0.3-0.9); MONOCYTES % 13.5 % (0.0-11.0); NEUTROPHIL # 5.1 10^3/ul (1.6-7.5); NEUTROPHILS % 75.5 % (39.0-77.0); PLATELET COUNT 122 10^3/UL (140-415); RED BLOOD COUNT 2.75 10^6/ul (4.70-6.10); WHITE BLOOD COUNT 6.8 10^3/ul (4.8-10.8)
[2017-08-07 08:32] LABS: CREATININE 0.81 mg/dl (0.61-1.24); POTASSIUM 4.3 mmol/L (3.5-5.1)
--- NOTE | 2017-08-07 08:38 | CONS ---
DATE OF ADMISSION: 08/05/2017 DATE OF CONSULTATION: 08/06/2017 CARDIOLOGY CONSULTATION REASON FOR CONSULTATION: Chest pain, assess for acute coronary syndrome. REQUESTING PHYSICIAN: Dr. Morel HISTORY OF PRESENT ILLNESS: Mr. Barclay is a 56-year-old male with a history of end-stage liver disea se, status post prior TIPS procedure, who is on liver transplant list at [facility], prior hepatic encepha lopathy, anemia, prior GI bleed, history of ETOH abuse, history of esophageal varices, history of pr ior stenting, most recently in March at [facility] per patient, prior to listing, who presented with compla ints of substernal chest pain and associated shortness of breath. Upon arrival, temperature of 97.9 , blood pressure 126/68, pulse 118, respiratory rate 18, satting 100%. Patient's labs: White blood cell count 10.4, hemoglobin 10.7, platelet count of 223. Sodium 135, potassium 5.6, creatinine 1.1 , BUN 24. Troponin negative. INR 1.46. UA negative. The patient underwent a chest x-ray revealin g improved lung inflation over interval with resolution of previously seen lung base atelectasis. T he patient's electrocardiogram reveals sinus tach, rate of 107, normal axis, normal intervals, with isolated T-wave flattening in lead aVL. The patient subsequently admitted to the telemetry floor. Denies ongoing chest pain. The patient describes the chest pain as a tightening to pressure-like fe eling, occurring at rest. PAST MEDICAL HISTORY: As above in HPI. MEDICATIONS CURRENTLY IN HOSPITAL: 1. Ativan p.r.n. 2. Lantus 10 units subQ at bedtime. 3. Reglan IV q.6. 4. Albumin IV q.8. 5. Plavix 75 mg daily. 6. Zetia 10 mg daily. 7. Vitamin B12. 8. Lactulose. 9. Midodrine 5 mg p.o. t.i.d. 10. Rifaximin. ALLERGIES: NO KNOWN DRUG ALLERGIES. SOCIAL HISTORY: No tobacco, ETOH or illicit drug use. FAMILY HISTORY: No history of sudden cardiac or early CAD. REVIEW OF SYSTEMS: As above in HPI. CONSTITUTIONAL: No fevers, chills. PULMONARY: Shortness of breath. CARDIOVASCULAR: Chest pain, tachycardia. GASTROINTESTINAL: No vomiting. GENITOURINARY: No hematuria. MUSCULOSKELETAL: Degenerative joint disease. PSYCHIATRIC: The patient denies depression, but positive anxiety. NEUROLOGIC: History of encephalopathy. PHYSICAL EXAMINATION: VITAL SIGNS: Temperature 99.2, blood pressure most recently 117/58, pulse 104, respiratory rate 18, saturating 99%. GENERAL: The patient is alert, awake, in no acute distress. NECK: JVP approximately 8 cm water. CHEST: Fair air movement throughout. HEART: Tachycardic, regular rhythm, normal S1, S2, I/ systolic murmur, nondisplaced PMI. ABDOMEN: Positive bowel sounds, soft. EXTREMITIES: 1 to 2+ edema bilaterally at the ankles, 1+ pulses bilaterally, posterior tibial. LABORATORY DATA: As above in HPI with most recently from today, sodium 123, potassium 5.0, creatini ne 0.93, BUN 22. Troponin negative x2. IMAGING STUDIES: As above in HPI. No further imaging studies for my review at this time. ECG: No further electrocardiograms for my review at this time. IMPRESSION: 1. Chest pain. Assess for acute coronary syndrome in a patient with history of stents, most recent ly March 2017. 2. Tachycardia with telemetries consistent with sinus tachycardia at this time. 3. History of hypotension, on midodrine, with currently well controlled, good blood pressure at thi s time. 4. Dyslipidemia, on Zetia. 5. Liver failure, on liver transplant list, status post TIPS procedure. 6. History of hepatic encephalopathy. 7. Diabetes mellitus. 8. Anemia. 9. Hyponatremia, worsening. 10. Coagulopathy. RECOMMENDATIONS: 1. At this time, would maintain patient on telemetry monitoring to follow rhythm and rate control c losely. 2. Would continue the patient's midodrine for now, following blood pressure closely, with possibili ty to wean off given elevated blood pressures. 3. Continue the patient's Plavix for stent patency at this time and complete the patient's rule out for myocardial infarction, ensure that the patient's chest pain was not due to an acute coronary sy ndrome such as acute myocardial infarction. 4. We will check a 2D echocardiogram to further assess the patient's ejection fraction, wall motion and major valve abnormalities, and for ongoing chest pain, we will consider stress testing in this patient to further evaluate for the possibility of recurrent significant obstructive coronary chest pain and subsequent admit to the hospital. 5. Would give patient gentle intravenous Lasix diuresis, following sodium closely and creatinine. Thank you for allowing me to take part in the care of this patient. I will continue to follow along very closely with you. Further recommendations will be made as the patient progresses through his inpatient hospital clinical course. Dictated By: BERNARD ARELLANO/ADRIANNA Conf#: [id number] DID#: [id number] CC: KATHARINA MOREL;*End*
[2017-08-07] MEDS ORDERED: VITAMIN A & D 5 GM OINT PACKET TOP ONE (08:47)
--- NOTE | 2017-08-07 10:25 | PN ---
Date/Time of Note Date/Time of Note DATE: 08/07/17 TIME: 10:25 Assessment/Plan VTE Prophylaxis VTE Prophylaxis Intervention: contraindicated Lines/Catheters [facility] Peripheral IV Urinary Cath still in place: No Assessment/Plan Chief Complaint/Hosp Course 56 y/o with 1 Abdominal pain, nausea, vomiting, unable to take anything p.o. There are multiple possibilities in this patient. The patient has history of chronic pancreatitis. Also, patient had an EGD done by Dr. Jimenes that showed patient' s severe esophagus varicose vein had completely subsided, gastropathy severe gastroparesis. It could be gastritis/gastroparesis 2. Chest pain, shortness of breath could be deconditioning; however, the patient has history of coronary artery disease, cannot rule out ischemia. Lexiscan today 3. Hyponatremia, likely hypervolemic state. will check U na and U osmolarity , fluid restriction and c/w Lasix 4. Hyperkalemia. likely secondary to decreased UOP , plus the patient has not been eating for the past few days, plus patient was taking spironolactone. 5. Mild acute kidney injury, likely secondary to poor p.o. intake third spacing plus taking diuretics. 6. Bilateral lower extremity edema could be secondary to liver cirrhosis versus CHF. 7. Right toe questionable gangrene. ,Duplex showed reduced KITA on Rt 8. Diabetes, uncontrolled. 9. History of staph and fungus bacteremia. 10. History of urinary tract infection. 11. Anemia 10.7>7.9 ? Upper GI vs Bleeding lips? Recs - c/w iv lasix - Monitor H/H closely, - Fluid restriction , U na and U osm - Lexiscan today - Wound care - If H/H continue to drop will ask cards about plavix - Lantus and ISS Problems: Subjective 24 Hr Interval Summary Free Text/Dictation Mild bleeding noted from lips Feels better today Going for lexiscan today Exam/Review of Systems Vital Signs Vitals Vital Signs Date Time Temp Pulse Resp B/P Pulse Ox O2 Delivery O2 Flow Rate FiO2 08/07/17 08:22 98 08/07/17 07:11 98.5 18 101/60 100 Intake and Output 08/06/17 08/06/17 08/07/17 15:00 23:00 07:00 Intake Total 750 ml 400 ml Output Total 800 ml 1200 ml Balance -50 ml -800 ml Exam GENERAL: The patient is awake, alert, oriented, appears to be in mild distress. Oral mucosa is dry. Some bleeding noted on the lips. NECK: Supple, minimal JVD. HEART: Regular rate and rthym LUNGS: Decreased breaths sounds bilaterally. ABDOMEN: Soft, distended. Minimal ascites. EXTREMITIES: 2 to 3+ edema lower extremities. Right great toe has a 3 x 4 cm area of black eschar. Pulses could not be appreciated because of the severe bilateral lower extremity edema. Results Result Diagram: 08/07/17 0732 08/07/17 0731 Results 24 hrs Laboratory Tests Test 08/06/17 11:13 08/06/17 12:03 08/06/17 13:40 08/06/17 17:44 Prothrombin Time 17.8 H Prothrombin Time Ratio 1.4 INR International Normalized Ratio 1.46 Sodium Level 123 L 122 L Potassium Level 5.0 4.7 Chloride Level 85 L 85 L Carbon Dioxide Level 26 28 Anion Gap 17 H 14 Blood Urea Nitrogen 22 H 22 H Creatinine 0.93 0.94 Glucose Level 217 235 H Calcium Level 9.0 9.1 Bedside Glucose 258 H 217 Total Bilirubin 1.0 Direct Bilirubin 0.00 Indirect Bilirubin 1.0 Aspartate Amino Transf (AST/SGOT) 84 H Alanine Aminotransferase (ALT/SGPT) 60 Alkaline Phosphatase 231 H Ammonia 23 Creatine Kinase 45 Creatine Kinase Index 11.8 Creatinine Kinase MB (Mass) 5.30 H Troponin I 0.024 B-Type Natriuretic Peptide 390 H Total Protein 6.8 Albumin 2.8 L Globulin 4.00 H Albumin/Globulin Ratio 0.70 Lipase 70 Test 08/06/17 21:02 08/07/17 03:05 08/07/17 07:31 08/07/17 07:32 Bedside Glucose 235 H 109 Sodium Level 124 L Potassium Level 4.3 Chloride Level 90 L Carbon Dioxide Level 29 Anion Gap 9 # Blood Urea Nitrogen 16 Creatinine 0.81 Glucose Level 96 # Calcium Level 9.0 White Blood Count 6.8 # Red Blood Count 2.75 #L Hemoglobin 7.9 #L Hematocrit 23.5 #L Mean Corpuscular Volume 85.5 Mean Corpuscular Hemoglobin 28.7 L Mean Corpuscular Hemoglobin Concent 33.6 Red Cell Distribution Width 17.0 H Platelet Count 122 #L Mean Platelet Volume 10.6 H Neutrophils % 75.5 Lymphocytes % 9.1 L Monocytes % 13.5 H Eosinophils % 1.3 Basophils % 0.3 Nucleated Red Blood Cells % 0.0 Neutrophils # 5.1 Lymphocytes # 0.6 L Monocytes # 0.9 Eosinophils # 0.1 Basophils # 0.0 Nucleated Red Blood Cells # 0.0 Test 08/07/17 07:53 Bedside Glucose 103 Medications Medications Current Medications Ondansetron HCl (Zofran Inj) 4 mg Q6H PRN IV NAUSEA AND/OR VOMITING; Start at 00:30 Acetaminophen (Tylenol Tab) 650 mg Q6H PRN PO PAIN LEVEL 1-3 OR FEVER; Start 08/06/17 at 00:30 Acetaminophen/ Hydrocodone Bitart ([place] (5/325)) 1 tab Q6H PRN PO MODERATE PAIN LEVEL 4-6; Start 08/06/17 at 00:30 Morphine Sulfate (morphine) 2 mg Q4H PRN IV SEVERE PAIN LEVEL 7-10 Last administered on 08/06/17 03:30; Admin Dose 2 MG; Start 08/06/17 at 00:30 Docusate Sodium (Colace) 100 mg Q12H PRN PO CONSTIPATION; Start 08/06/17 at 00 :30 Clopidogrel Bisulfate (plaVIX) 75 mg DAILY PO Last administered on 08/06/17 08:16; Admin Dose 75 MG; Start 08/06/17 at 09:00 Cyanocobalamin (Vitamin B12) 500 mcg DAILY PO Last administered on 08/06/17 08:16; Admin Dose 500 MCG; Start 08/06/17 at 09:00 Eye Lubricant (Artificial Tears Oph) 2 drop TID PRN BOTH EYES PRN; Start 08/06 at 00:30 Diphenhydramine HCl (Benadryl) 25 mg Q6 PRN PO ITCHING; Start 08/06/17 at 00: 30 EZETIMIBE (Zetia) 10 mg DAILY PO Last administered on 08/06/17 08:17; Admin Dose 10 MG; Start 08/06/17 at 09:00 Fluocinonide (Lidex 0.05% Cr) 1 applic BID TOP Last administered on 08/06/17 21:13; Admin Dose 1 APPLIC; Start 08/06/17 at 09:00 Lactulose (Enulose) 26.7 gm BID PO Last administered on 08/06/17 21:05; Admin Dose 26.7 GM; Start 08/06/17 at 09:00 Midodrine (Proamatine) 5 mg TID PO Last administered on 08/06/17 21:06; Admin Dose 5 MG; Start 08/06/17 at 09:00 Pantoprazole (Protonix Tab) 40 mg DAILY@06 PO Last administered on 08/07/17 05:32; Admin Dose 40 MG; Start 08/06/17 at 06:00 Rifaximin (Xifaxan) 550 mg BID PO Last administered on 08/06/17 21:05; Admin Dose 550 MG; Start 08/06/17 at 09:00 Diagnostic Test (Pha) (Accu-Chek) 1 ea 02 XX Last administered on 08/06/17 02 :41; Admin Dose 1 EA; Start 08/06/17 at 02:00 Miscellaneous Information 1 ea NOTE XX ; Start 08/06/17 at 00:45 Glucose (Glutose) 15 gm Q15M PRN PO DECREASED GLUCOSE; Start 08/06/17 at 00:45 Glucose (Glutose) 22.5 gm Q15M PRN PO DECREASED GLUCOSE; Start 08/06/17 at 00: 45 Dextrose (D50w Syringe) 25 ml Q15M PRN IV DECREASED GLUCOSE; Start 08/06/17 at 00:45 Dextrose (D50w Syringe) 50 ml Q15M PRN IV DECREASED GLUCOSE; Start 08/06/17 at 00:45 Glucagon (Glucagen) 1 mg Q15M PRN IM DECREASED GLUCOSE; Start 08/06/17 at 00: 45 Glucose (Glutose) 15 gm Q15M PRN BUCCAL DECREASED GLUCOSE; Start 08/06/17 at 00:45 Temazepam (Restoril) 15 mg QHS PRN PO insomnia; Start 08/06/17 at 02:30 Metoclopramide HCl (Reglan) 10 mg Q6 IV Last administered on 08/07/17 05:32; Admin Dose 10 MG; Start 08/06/17 at 12:00 Lorazepam (Ativan) 0.5 mg Q12H PRN IV Anxiety; Start 08/06/17 at 21:00 Insulin Glargine (Lantus) 15 unit HS SC Last administered on 10/25/17at 21:12; Admin Dose 15 UNIT; Start 08/06/17 at 21:00 Furosemide (Lasix) 20 mg DAILY IV ; Start 08/07/17 at 09:00 Nitroglycerin (Nitroglycerin (Sl Tab) 0.4 Mg) 1 tab Q5M PRN SL ANGINA; Start 08/06/17 at 14:00 KATHARINA GLEASON MD Aug 07, 2017 10:25
[2017-08-07] MEDS ORDERED: REGADENOSON 0.4 MG/5 ML SYG ONE (11:30)
--- NOTE | 2017-08-07 12:18 | CONS ---
Date/Time of Note Date/Time of Note DATE: 08/07/17 TIME: 12:10 Assessment/Plan Assessment/Plan Chief Complaint/Hosp Course IMPRESSION: 1. Chest pain. Assess for acute coronary syndrome in a patient with history of stents, most recently March 2017.-trop neg x 3/ NL EF by echo 2. Tachycardia with telemetries consistent with sinus tachycardia at this time. 3. History of hypotension, on midodrine, with currently well controlled, good blood pressure at this time. 4. Dyslipidemia, on Zetia. 5. Liver failure, on liver transplant list, status post TIPS procedure. 6. History of hepatic encephalopathy. 7. Diabetes mellitus. 8. Anemia. 9. Hyponatremia, worsening. 10. Coagulopathy. Recc; -tele -serial ecg's -continue plavix and would resume asa as tolerated for stent patency -Continue midodrine -Continue lasix -Lexiscan stress test today Problems: Consultation Date/Type/Reason Admit Date/Time Aug 05, 2017 at 22:59 Initial Consult Date 08/06/17 Type of Consultation: cardiology Reason for Consultation chest pain Referring Provider: KATHARINA GLEASON MD Exam/Review of Systems Vital Signs Vitals Vital Signs Date Time Temp Pulse Resp B/P Pulse Ox O2 Delivery O2 Flow Rate FiO2 08/07/17 08:22 98 08/07/17 07:11 98.5 18 101/60 100 Intake and Output 08/06/17 08/06/17 08/07/17 15:00 23:00 07:00 Intake Total 750 ml 400 ml Output Total 800 ml 1200 ml Balance -50 ml -800 ml Exam Review of Systems: CONSTITUTIONAL: No fevers, chills. PULMONARY: No sob CARDIOVASCULAR: No chest pain/palpitations GASTROINTESTINAL: No nausea/vomiting. GENITOURINARY: No hematuria/dysuria. MUSCULOSKELETAL: No myagias/arthalgias. PSYCHIATRIC: The patient denies depression. NEUROLOGIC: No weakness Constitutional: alert Psych: no complaints Head: normocephalic ENMT: mucosa pink and moist Neck: jvd, supple Respiratory: diminished breath sounds Cardiovascular: regular rate and rhythm Gastrointestinal: non-tender, soft Musculoskeletal: muscle weakness (mild generalized) Extremities: pitting pedal edema (bilateral) Neurological: other (No focal deficits) Results Result Diagram: 08/07/17 0732 08/07/17 0731 Results 24 hrs Laboratory Tests Test 08/06/17 13:40 08/06/17 17:44 08/06/17 21:02 08/07/17 03:05 Sodium Level 122 L Potassium Level 4.7 Chloride Level 85 L Carbon Dioxide Level 28 Anion Gap 14 Blood Urea Nitrogen 22 H Creatinine 0.94 Glucose Level 235 H Calcium Level 9.1 Total Bilirubin 1.0 Direct Bilirubin 0.00 Indirect Bilirubin 1.0 Aspartate Amino Transf (AST/SGOT) 84 H Alanine Aminotransferase (ALT/SGPT) 60 Alkaline Phosphatase 231 H Ammonia 23 Creatine Kinase 45 Creatine Kinase Index 11.8 Creatinine Kinase MB (Mass) 5.30 H Troponin I 0.024 B-Type Natriuretic Peptide 390 H Total Protein 6.8 Albumin 2.8 L Globulin 4.00 H Albumin/Globulin Ratio 0.70 Lipase 70 Bedside Glucose 217 235 H 109 Test 08/07/17 07:31 08/07/17 07:32 08/07/17 07:53 Sodium Level 124 L Potassium Level 4.3 Chloride Level 90 L Carbon Dioxide Level 29 Anion Gap 9 # Blood Urea Nitrogen 16 Creatinine 0.81 Glucose Level 96 # Calcium Level 9.0 White Blood Count 6.8 # Red Blood Count 2.75 #L Hemoglobin 7.9 #L Hematocrit 23.5 #L Mean Corpuscular Volume 85.5 Mean Corpuscular Hemoglobin 28.7 L Mean Corpuscular Hemoglobin Concent 33.6 Red Cell Distribution Width 17.0 H Platelet Count 122 #L Mean Platelet Volume 10.6 H Neutrophils % 75.5 Lymphocytes % 9.1 L Monocytes % 13.5 H Eosinophils % 1.3 Basophils % 0.3 Nucleated Red Blood Cells % 0.0 Neutrophils # 5.1 Lymphocytes # 0.6 L Monocytes # 0.9 Eosinophils # 0.1 Basophils # 0.0 Nucleated Red Blood Cells # 0.0 Bedside Glucose 103 Medications Medications Current Medications Ondansetron HCl (Zofran Inj) 4 mg Q6H PRN IV NAUSEA AND/OR VOMITING; Start at 00:30 Acetaminophen (Tylenol Tab) 650 mg Q6H PRN PO PAIN LEVEL 1-3 OR FEVER; Start 08/06/17 at 00:30 Acetaminophen/ Hydrocodone Bitart ([place] (5/325)) 1 tab Q6H PRN PO MODERATE PAIN LEVEL 4-6; Start 08/06/17 at 00:30 Morphine Sulfate (morphine) 2 mg Q4H PRN IV SEVERE PAIN LEVEL 7-10 Last administered on 08/06/17 03:30; Admin Dose 2 MG; Start 08/06/17 at 00:30 Docusate Sodium (Colace) 100 mg Q12H PRN PO CONSTIPATION; Start 08/06/17 at 00 :30 Clopidogrel Bisulfate (plaVIX) 75 mg DAILY PO Last administered on 08/06/17 08:16; Admin Dose 75 MG; Start 08/06/17 at 09:00 Cyanocobalamin (Vitamin B12) 500 mcg DAILY PO Last administered on 08/06/17 08:16; Admin Dose 500 MCG; Start 08/06/17 at 09:00 Eye Lubricant (Artificial Tears Oph) 2 drop TID PRN BOTH EYES PRN; Start 08/06 at 00:30 Diphenhydramine HCl (Benadryl) 25 mg Q6 PRN PO ITCHING; Start 08/06/17 at 00: 30 EZETIMIBE (Zetia) 10 mg DAILY PO Last administered on 08/06/17 08:17; Admin Dose 10 MG; Start 08/06/17 at 09:00 Fluocinonide (Lidex 0.05% Cr) 1 applic BID TOP Last administered on 08/06/17 21:13; Admin Dose 1 APPLIC; Start 08/06/17 at 09:00 Lactulose (Enulose) 26.7 gm BID PO Last administered on 08/06/17 21:05; Admin Dose 26.7 GM; Start 08/06/17 at 09:00 Midodrine (Proamatine) 5 mg TID PO Last administered on 08/06/17 21:06; Admin Dose 5 MG; Start 08/06/17 at 09:00 Pantoprazole (Protonix Tab) 40 mg DAILY@06 PO Last administered on 08/07/17 05:32; Admin Dose 40 MG; Start 08/06/17 at 06:00 Rifaximin (Xifaxan) 550 mg BID PO Last administered on 08/06/17 21:05; Admin Dose 550 MG; Start 08/06/17 at 09:00 Diagnostic Test (Pha) (Accu-Chek) 1 ea 02 XX Last administered on 08/06/17 02 :41; Admin Dose 1 EA; Start 08/06/17 at 02:00 Miscellaneous Information 1 ea NOTE XX ; Start 08/06/17 at 00:45 Glucose (Glutose) 15 gm Q15M PRN PO DECREASED GLUCOSE; Start 08/06/17 at 00:45 Glucose (Glutose) 22.5 gm Q15M PRN PO DECREASED GLUCOSE; Start 08/06/17 at 00: 45 Dextrose (D50w Syringe) 25 ml Q15M PRN IV DECREASED GLUCOSE; Start 08/06/17 at 00:45 Dextrose (D50w Syringe) 50 ml Q15M PRN IV DECREASED GLUCOSE; Start 08/06/17 at 00:45 Glucagon (Glucagen) 1 mg Q15M PRN IM DECREASED GLUCOSE; Start 08/06/17 at 00: 45 Glucose (Glutose) 15 gm Q15M PRN BUCCAL DECREASED GLUCOSE; Start 08/06/17 at 00:45 Temazepam (Restoril) 15 mg QHS PRN PO insomnia; Start 08/06/17 at 02:30 Metoclopramide HCl (Reglan) 10 mg Q6 IV Last administered on 08/07/17 05:32; Admin Dose 10 MG; Start 08/06/17 at 12:00 Lorazepam (Ativan) 0.5 mg Q12H PRN IV Anxiety; Start 08/06/17 at 21:00 Insulin Glargine (Lantus) 15 unit HS SC Last administered on 08/06/17 21:12; Admin Dose 15 UNIT; Start 08/06/17 at 21:00 Furosemide (Lasix) 20 mg DAILY IV ; Start 08/07/17 at 09:00 Nitroglycerin (Nitroglycerin (Sl Tab) 0.4 Mg) 1 tab Q5M PRN SL ANGINA; Start 08/06/17 at 14:00 BERNARD ADAMS Aug 07, 2017 12:18
--- NOTE | 2017-08-07 12:59 | RADRPT ---
PROCEDURE: Lexiscan myocardial perfusion study CLINICAL INDICATION: 56 -year-old patient complaining of chest pain. TECHNIQUE: Lexiscan 0.4 mg intravenously separate acquisition gated myocardial perfusion SPECT usi ng Tc 99m Myoview 25.7 mCi intravenously at stress and Tc-99m Myoview, 8.5 mCi intravenously at rest was performed using the rest/stress sequence. Poststress Myoview SPECT images were obtained in the supine position. COMPARISON: No prior studies. FINDINGS: Perfusion images reveal mild nonreversible perfusion abnormality in the inferior wall. Lexiscan post stress gated SPECT images demonstrate no wall motion abnormalities. IMPRESSION: 1. No evidence of stress-induced ischemia. 2. No wall motion abnormalities. 3. The left ventricle ejection fraction at stress is greater than 70%. A call report was made to Dr. Bergeron at 12:55 p.m. on August 07, 2017. RPTAT: HH .Anat Stone MD, Date Time Electronically viewed and signed by .Anat Stone MD, on 08/07/2017 12:58 .L/
[2017-08-07] MEDS: MIDODRINE 5 MG TAB PO SCH ×3 (13:00→21:40)
--- NOTE | 2017-08-07 13:36 | RADRPT ---
Vent Rate: 96 bpm RR Interval: 0 msec WA Interval: 108 msec QRS Duration: 70 msec QT Interval: 372 msec QTC Interval: 469 msec P-R-T [place]: 63 - 55 - 66 degrees Sinus rhythm with sinus arrhythmia with short WA Otherwise normal ECG Electronically Signed By: Valeriy Stanton [id number]
[2017-08-07] MEDS: CLOPIDOGREL 75 MG TAB PO SCH (13:40)
[2017-08-07] MEDS: EZETIMIBE 10 MG TAB PO SCH (13:40)
[2017-08-07] MEDS: LACTULOSE 30ML CUP PO SCH ×2 (13:40→21:40)
[2017-08-07] MEDS: RIFAXIMIN 550 MG TAB PO SCH ×2 (13:40→21:40)
[2017-08-07] MEDS: CYANOCOBALAMIN 500 MCG TAB PO SCH (13:41)
[2017-08-07] MEDS: FLUOCINONIDE 0.05% 15 GM CR TOP SCH ×2 (13:42→21:41)
[2017-08-07] MEDS: FUROSEMIDE 20 MG INJ IV SCH (13:42)
--- NOTE | 2017-08-07 13:49 | CONS ---
DATE OF ADMISSION: 08/05/2017 DATE OF CONSULTATION: TYPE OF CONSULTATION: Gastroenterology. HISTORY OF PRESENT ILLNESS: The patient is a 56-year-old male with cirrhosis of liver, status post TIPS procedure, abuse in the past, chronic pancreatitis, coronary artery disease status post s tent, admitted to the hospital with nausea, vomiting. He feels food is getting stuck and he has bee n losing weight. No shortness of breath. He had some chest discomfort. 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 PAST MEDICAL HISTORY: Please review the old chart for further details. ALLERGIES: NONE. PAST SURGICAL HISTORY: TIPS procedure and cardiac stent. SOCIAL HISTORY: No smoking, no alcohol. PHYSICAL EXAMINATION: GENERAL: Alert, awake, not in distress. CARDIOVASCULAR: No murmur, gallop or click. LUNGS: Clear. ABDOMEN: Benign. EXTREMITIES: No edema. CENTRAL NERVOUS SYSTEM: Grossly within normal limits. NEUROLOGIC: He has got mild . He has got also 1+ pedal edema. LABORATORY DATA: The patient's INR is 1.4, BUN is 22, creatinine is within normal limits. Glucose is 235. Hematocrit was 31.2, dropped to 23, platelet count is 122. IMPRESSION: 1. Nausea, vomiting, most probably related to diabetic gastroparesis. 2. Diabetes mellitus. 3. Chronic pancreatitis. 4. Cirrhosis of liver, status post TIPS procedure. 5. History of encephalopathy, most probably aggravated by the TIPS procedure. PLAN: To start the patient empirically on Reglan to optimize the blood sugar. Continue lactulose a nd rifaximin and if despite that continues to have emesis, then we will do EGD. We will monitor hem atocrit also closely. At this point as per the staff, there is no evidence of active bleeding; turk freddy, if hematocrit drops down further we will transfuse him. Dictated By: CONOR KNIGHT/ADRIANNA Conf#: [id number] DID#: [id number] CC: KATHARINA GLEASON;*EndCC*
[2017-08-07] MEDS ORDERED: METOCLOPRAMIDE 10 MG INJ IV SCH (18:00)
--- NOTE | 2017-08-07 19:51 | CARRPT ---
DATE OF PROCEDURE: 08/07/2017 PROCEDURE: Lexiscan Cardiolite stress test REASON FOR STRESS TESTING: Chest pain, assess for ischemia. BASELINE VITAL SIGNS AND ELECTROCARDIOGRAM: Pulse 93, blood pressure 105/57. Electrocardiogram was normal sinus rhythm, rate 93, normal axis, normal intervals, with isolated T-wave inversion in lead aVL. DESCRIPTION OF PROCEDURE: The patient underwent standard Lexiscan infusion protocol over 10 seconds followed by radiotracer. The patient's test was stopped due to completion of protocol. Maximal ac hieved blood pressure during the test 100/58. Maximum heart rate during the test 100. ELECTROCARDIOGRAM FINDINGS: The patient did not develop any new Lexiscan-induced ST or T-wave tapia es from baseline abnormalities. No documented PVCs. SYMPTOMS: The patient had no complaints of chest pain or shortness of breath during stress testing. IMPRESSION: 1. No Lexiscan-induced ST or T-wave changes from baseline abnormalities or diagnostic cardiac ische maryjo. 2. No complaints of chest pain or shortness of breath during stress testing. 3. No documented premature ventricular contractions during stress testing. 4. Report of nuclear images to follow in separate dictation. Dictated By: BERNARD ARELLANO/ADRIANNA Conf#: [id number] DID#: [id number] CC: KATHARINA GLEASON;*EndCC*
--- NOTE | 2017-08-07 21:13 | CONS ---
Date/Time of Note Date/Time of Note DATE: 08/07/17 TIME: 21:13 Assessment/Plan Assessment/Plan Problems: (1) Lower leg edema (2) Peripheral vascular disease (3) Flank pain Status: Acute (4) UTI (urinary tract infection) Status: Acute (5) Opioid withdrawal Status: Acute (6) Vomiting Status: Acute (7) Chronic pain Status: Acute Additional Assessment/Plan No surgery recommended at this time. Monitor patient daily. Elevate heels bilaterally with heel to the air. Moisturize skin daily. Thank you again for involving me in the care of this patient. If you have any questions regarding this case, please feel free to contact me at pager: or reach me at mobile: [phone]. Consultation Date/Type/Reason Admit Date/Time Aug 05, 2017 at 22:59 Date of Consultation: Aug 07, 2017 Type of Consultation: Foot and ankle surgery Reason for Consultation Lower extremity evaluation Hx of Present Illness Thank you very much for your kind consultation. This is a 56-year-old male patient with verbal medical problems including diabetes mellitus with peripheral neuropathy, history of liver cirrhosis, history of esophageal varices , ethanol alcohol abuse, chronic pancreatitis. I was consulted to evaluate gangrenous changes in the right foot. Patient reports pain in the right foot and denies fever and chills. Reports no chest pain or shortness of breath. Psychological: no complaints Past Medical History As per history of present illness. Past Surgical History As per history of present illness. Past Surgical Hx: coronary bypass surgery Social History As per history of present illness. Smoking Status: Former smoker Exam/Review of Systems Vital Signs Vitals Vital Signs Date Time Temp Pulse Resp B/P Pulse Ox O2 Delivery O2 Flow Rate FiO2 08/07/17 20:33 95 08/07/17 20:05 98.4 20 100/61 99 Intake and Output 08/06/17 08/06/17 08/07/17 15:00 23:00 07:00 Intake Total 750 ml 400 ml Output Total 800 ml 1200 ml Balance -50 ml -800 ml Exam Patient is laying supine in bed in no acute distress. Distal right hallux gangrenous changes noted with no surrounding erythema. Bilateral lower extremity edema noted. Left fourth toe onychodystrophy and discoloration of nail noted. Left third toe open wound present on the lateral aspect with mild edema and erythema. Tender to palpation. Palpable pulses but weak bilaterally with decreased sensation to sharp dull vibratory temperature stimuli. Labs reviewed. Results Result Diagram: 08/07/17 0732 08/07/17 1905 Results 24 hrs Laboratory Tests Test 08/07/17 03:05 08/07/17 07:31 08/07/17 07:32 08/07/17 07:53 Bedside Glucose 109 103 Sodium Level 124 L Potassium Level 4.3 Chloride Level 90 L Carbon Dioxide Level 29 Anion Gap 9 # Blood Urea Nitrogen 16 Creatinine 0.81 Glucose Level 96 # Calcium Level 9.0 White Blood Count 6.8 # Red Blood Count 2.75 #L Hemoglobin 7.9 #L Hematocrit 23.5 #L Mean Corpuscular Volume 85.5 Mean Corpuscular Hemoglobin 28.7 L Mean Corpuscular Hemoglobin Concent 33.6 Red Cell Distribution Width 17.0 H Platelet Count 122 #L Mean Platelet Volume 10.6 H Neutrophils % 75.5 Lymphocytes % 9.1 L Monocytes % 13.5 H Eosinophils % 1.3 Basophils % 0.3 Nucleated Red Blood Cells % 0.0 Neutrophils # 5.1 Lymphocytes # 0.6 L Monocytes # 0.9 Eosinophils # 0.1 Basophils # 0.0 Nucleated Red Blood Cells # 0.0 Test 08/07/17 12:56 08/07/17 17:30 08/07/17 19:05 Bedside Glucose 133 259 H Sodium Level 122 L Medications Medications Current Medications Ondansetron HCl (Zofran Inj) 4 mg Q6H PRN IV NAUSEA AND/OR VOMITING; Start at 00:30 Acetaminophen (Tylenol Tab) 650 mg Q6H PRN PO PAIN LEVEL 1-3 OR FEVER; Start 08/06/17 at 00:30 Acetaminophen/ Hydrocodone Bitart ([place] (5/325)) 1 tab Q6H PRN PO MODERATE PAIN LEVEL 4-6; Start 08/06/17 at 00:30 Morphine Sulfate (morphine) 2 mg Q4H PRN IV SEVERE PAIN LEVEL 7-10 Last administered on 08/06/17t 03:30; Admin Dose 2 MG; Start 08/06/17 at 00:30 Docusate Sodium (Colace) 100 mg Q12H PRN PO CONSTIPATION; Start 08/06/17 at 00 :30 Clopidogrel Bisulfate (plaVIX) 75 mg DAILY PO Last administered on 08/07/17 13:40; Admin Dose 75 MG; Start 08/06/17 at 09:00 Cyanocobalamin (Vitamin B12) 500 mcg DAILY PO Last administered on 08/07/17 13:41; Admin Dose 500 MCG; Start 08/06/17 at 09:00 Eye Lubricant (Artificial Tears Oph) 2 drop TID PRN BOTH EYES PRN; Start 08/06 at 00:30 Diphenhydramine HCl (Benadryl) 25 mg Q6 PRN PO ITCHING; Start 08/06/17 at 00: 30 EZETIMIBE (Zetia) 10 mg DAILY PO Last administered on 08/07/17 13:40; Admin Dose 10 MG; Start 08/06/17 at 09:00 Fluocinonide (Lidex 0.05% Cr) 1 applic BID TOP Last administered on 08/07/17 13:42; Admin Dose 1 APPLIC; Start 08/06/17 at 09:00 Lactulose (Enulose) 26.7 gm BID PO Last administered on 08/07/17 13:40; Admin Dose 26.7 GM; Start 08/06/17 at 09:00 Midodrine (Proamatine) 5 mg TID PO Last administered on 08/07/17 13:41; Admin Dose 5 MG; Start 08/06/17 at 09:00 Pantoprazole (Protonix Tab) 40 mg DAILY@06 PO Last administered on 08/07/17 05:32; Admin Dose 40 MG; Start 08/06/17 at 06:00 Rifaximin (Xifaxan) 550 mg BID PO Last administered on 08/07/17 13:40; Admin Dose 550 MG; Start 08/06/17 at 09:00 Diagnostic Test (Pha) (Accu-Chek) 1 ea 02 XX Last administered on 08/06/17 02 :41; Admin Dose 1 EA; Start 08/06/17 at 02:00 Miscellaneous Information 1 ea NOTE XX ; Start 08/06/17 at 00:45 Glucose (Glutose) 15 gm Q15M PRN PO DECREASED GLUCOSE; Start 08/06/17 at 00:45 Glucose (Glutose) 22.5 gm Q15M PRN PO DECREASED GLUCOSE; Start 08/06/17 at 00: 45 Dextrose (D50w Syringe) 25 ml Q15M PRN IV DECREASED GLUCOSE; Start 08/06/17 at 00:45 Dextrose (D50w Syringe) 50 ml Q15M PRN IV DECREASED GLUCOSE; Start 08/06/17 at 00:45 Glucagon (Glucagen) 1 mg Q15M PRN IM DECREASED GLUCOSE; Start 08/06/17 at 00: 45 Glucose (Glutose) 15 gm Q15M PRN BUCCAL DECREASED GLUCOSE; Start 08/06/17 at 00:45 Temazepam (Restoril) 15 mg QHS PRN PO insomnia; Start 08/06/17 at 02:30 Metoclopramide HCl (Reglan) 10 mg Q6 IV Last administered on 08/07/17 18:39; Admin Dose 10 MG; Start 08/06/17 at 12:00 Lorazepam (Ativan) 0.5 mg Q12H PRN IV Anxiety; Start 08/06/17 at 21:00 Insulin Glargine (Lantus) 15 unit HS SC Last administered on 08/06/17 21:12; Admin Dose 15 UNIT; Start 08/06/17 at 21:00 Furosemide (Lasix) 20 mg DAILY IV Last administered on 08/07/17 13:42; Admin Dose 20 MG; Start 08/07/17 at 09:00 Nitroglycerin (Nitroglycerin (Sl Tab) 0.4 Mg) 1 tab Q5M PRN SL ANGINA; Start 08/06/17 at 14:00 ELIO MCQUEEN DPM Aug 07, 2017 21:13
[2017-08-07] MEDS: INSULIN GLARGINE [LANtus] 3 ML PEN SC SCH (22:06)
[2017-08-08] VITALS (10 sets, daily range): BP systolic 90–107; BP diastolic 52–78; PULSE 82–98; RESP 18
[2017-08-08] MEDS: ACCU-CHEK XX SCH (02:45)
[2017-08-08] MEDS: PANTOPRAZOLE (EC) 40 MG TAB PO SCH (06:28)
[2017-08-08] MEDS: METOCLOPRAMIDE 10 MG INJ IV SCH ×3 (06:28→12:34)
[2017-08-08] MEDS: INSULIN ASPART [NOVOLOG] 3 ML PEN SC SCH ×2 (07:55→12:48)
[2017-08-08] MEDS: CYANOCOBALAMIN 500 MCG TAB PO SCH (08:22)
[2017-08-08] MEDS: EZETIMIBE 10 MG TAB PO SCH (08:22)
[2017-08-08] MEDS: LACTULOSE 30ML CUP PO SCH (08:22)
[2017-08-08] MEDS: CLOPIDOGREL 75 MG TAB PO SCH (08:23)
[2017-08-08] MEDS: MIDODRINE 5 MG TAB PO SCH ×2 (08:24→12:35)
[2017-08-08] MEDS: RIFAXIMIN 550 MG TAB PO SCH (08:25)
[2017-08-08] MEDS: FLUOCINONIDE 0.05% 15 GM CR TOP SCH (08:25)
[2017-08-08] MEDS: FUROSEMIDE 20 MG INJ IV SCH (08:26)
[2017-08-08 08:27] LABS: ABNORMAL IP MESSAGE 1; BASOPHIL # 0.1 10^3/ul (0.0-0.1); BASOPHILS % 0.8 % (0.0-2.0); EOSINOPHILS # 0.2 10^3/ul (0.0-0.5); EOSINOPHILS % 2.7 % (0.0-7.0); HEMATOCRIT 26.6 % (42.0-52.0); HEMOGLOBIN 8.8 g/dl (14.0-18.0); LYMPHOCYTES # 0.5 10^3/ul (0.8-2.9); LYMPHOCYTES % 7.9 % (15.0-51.0); MEAN CORPUSCULAR HEMOGLOBIN 28.5 pg (29.0-33.0); MEAN CORPUSCULAR HGB CONC 33.1 g/dl (32.0-37.0); MEAN CORPUSCULAR VOLUME 86.1 fl (82.0-101.0); MEAN PLATELET VOLUME 10.5 fl (7.4-10.4); MONOCYTE # 0.9 10^3/ul (0.3-0.9); MONOCYTES % 13.1 % (0.0-11.0); PLATELET COUNT 130 10^3/UL (140-415); POSITIVE DIFF @See below; RED BLOOD COUNT 3.09 10^6/ul (4.70-6.10); RED CELL DISTRIBUTION WIDTH 16.8 % (11.5-14.5); WHITE BLOOD COUNT 6.6 10^3/ul (4.8-10.8)
[2017-08-08 09:00] LABS: CALCIUM 9.5 mg/dl (8.4-10.2); CREATININE 0.73 mg/dl (0.61-1.24); POTASSIUM 4.2 mmol/L (3.5-5.1)
--- NOTE | 2017-08-08 13:50 | PN ---
Date/Time of Note Date/Time of Note DATE: 08/08/17 TIME: 13:45 Assessment/Plan VTE Prophylaxis VTE Prophylaxis Intervention: SCD's Lines/Catheters IV Catheter Type (from Nrs): [place] Urinary Cath still in place: No Assessment/Plan Chief Complaint/Hosp Course 1. Abdominal pain, nausea, vomiting, resolved 2. Chest pain, resolved 3. Hyponatremia, better 4. Hyperkalemia, better. 5. Mild acute kidney injury, likely secondary to poor p.o. intake third spacing plus taking diuretics. 6. Bilateral lower extremity edema could be secondary to liver cirrhosis versus CHF. 7. Right toe questionable gangrene. Duplex showed reduced KITA on Rt 8. Diabetes, uncontrolled. 9. History of staph and fungus bacteremia. 10. History of urinary tract infection. 11. Anemia 10.7>7.9 ? Upper GI vs Bleeding lips? 12. Constipation for 4 days Problems: Assessment/Plan 1. continue current regime 2. tap enema Exam/Review of Systems Vital Signs Vitals Vital Signs Date Time Temp Pulse Resp B/P Pulse Ox O2 Delivery O2 Flow Rate FiO2 08/08/17 12:19 98 08/08/17 11:46 98.0 18 92/78 100 Intake and Output 08/07/17 08/07/17 08/08/17 15:00 23:00 07:00 Intake Total 780 ml 400 ml Output Total 800 ml 600 ml Balance -20 ml -200 ml Results Result Diagram: 08/08/17 0741 08/08/17 0741 Results 24 hrs Laboratory Tests Test 08/07/17 17:30 08/07/17 19:05 08/07/17 21:38 08/08/17 02:08 Bedside Glucose 259 H 218 155 Sodium Level 122 L Test 08/08/17 07:41 08/08/17 08:21 08/08/17 12:32 White Blood Count 6.6 Red Blood Count 3.09 L Hemoglobin 8.8 L Hematocrit 26.6 L Mean Corpuscular Volume 86.1 Mean Corpuscular Hemoglobin 28.5 L Mean Corpuscular Hemoglobin Concent 33.1 Red Cell Distribution Width 16.8 H Platelet Count 130 L Mean Platelet Volume 10.5 H Neutrophils % 75.0 Lymphocytes % 7.9 L Monocytes % 13.1 H Eosinophils % 2.7 Basophils % 0.8 Nucleated Red Blood Cells % 0.0 Neutrophils # 5.0 Lymphocytes # 0.5 L Monocytes # 0.9 Eosinophils # 0.2 Basophils # 0.1 Nucleated Red Blood Cells # 0.0 Sodium Level 128 L Potassium Level 4.2 Chloride Level 97 Carbon Dioxide Level 25 Anion Gap 10 Blood Urea Nitrogen 10 Creatinine 0.73 Glucose Level 103 Calcium Level 9.5 Bedside Glucose 111 249 H Medications Medications Current Medications Ondansetron HCl (Zofran Inj) 4 mg Q6H PRN IV NAUSEA AND/OR VOMITING; Start at 00:30 Acetaminophen (Tylenol Tab) 650 mg Q6H PRN PO PAIN LEVEL 1-3 OR FEVER; Start 08/06/17 at 00:30 Acetaminophen/ Hydrocodone Bitart ([place] (5/325)) 1 tab Q6H PRN PO MODERATE PAIN LEVEL 4-6; Start 08/06/17 at 00:30 Morphine Sulfate (morphine) 2 mg Q4H PRN IV SEVERE PAIN LEVEL 7-10 Last administered on 08/06/17 03:30; Admin Dose 2 MG; Start 08/06/17 at 00:30 Docusate Sodium (Colace) 100 mg Q12H PRN PO CONSTIPATION Last administered on 08/08/17 08:50; Admin Dose 100 MG; Start 08/06/17 at 00:30 Clopidogrel Bisulfate (plaVIX) 75 mg DAILY PO Last administered on 08/08/17 08:23; Admin Dose 75 MG; Start 08/06/17 at 09:00 Cyanocobalamin (Vitamin B12) 500 mcg DAILY PO Last administered on 08/08/17 08:22; Admin Dose 500 MCG; Start 08/06/17 at 09:00 Eye Lubricant (Artificial Tears Oph) 2 drop TID PRN BOTH EYES PRN; Start 08/06 at 00:30 Diphenhydramine HCl (Benadryl) 25 mg Q6 PRN PO ITCHING; Start 08/06/17 at 00: 30 EZETIMIBE (Zetia) 10 mg DAILY PO Last administered on 08/08/17 08:22; Admin Dose 10 MG; Start 08/06/17 at 09:00 Fluocinonide (Lidex 0.05% Cr) 1 applic BID TOP Last administered on 08/08/17 08:25; Admin Dose 1 APPLIC; Start 08/06/17 at 09:00 Lactulose (Enulose) 26.7 gm BID PO Last administered on 08/08/17 08:22; Admin Dose 26.7 GM; Start 08/06/17 at 09:00 Midodrine (Proamatine) 5 mg TID PO Last administered on 08/08/17 12:35; Admin Dose 5 MG; Start 08/06/17 at 09:00 Pantoprazole (Protonix Tab) 40 mg DAILY@06 PO Last administered on 08/08/17 06:28; Admin Dose 40 MG; Start 08/06/17 at 06:00 Rifaximin (Xifaxan) 550 mg BID PO Last administered on 08/08/17 08:25; Admin Dose 550 MG; Start 08/06/17 at 09:00 Diagnostic Test (Pha) (Accu-Chek) 1 ea 02 XX Last administered on 08/08/17 02 :45; Admin Dose 1 EA; Start 08/06/17 at 02:00 Miscellaneous Information 1 ea NOTE XX ; Start 08/06/17 at 00:45 Glucose (Glutose) 15 gm Q15M PRN PO DECREASED GLUCOSE; Start 08/06/17 at 00:45 Glucose (Glutose) 22.5 gm Q15M PRN PO DECREASED GLUCOSE; Start 08/06/17 at 00: 45 Dextrose (D50w Syringe) 25 ml Q15M PRN IV DECREASED GLUCOSE; Start 08/06/17 at 00:45 Dextrose (D50w Syringe) 50 ml Q15M PRN IV DECREASED GLUCOSE; Start 08/06/17 at 00:45 Glucagon (Glucagen) 1 mg Q15M PRN IM DECREASED GLUCOSE; Start 08/06/17 at 00: 45 Glucose (Glutose) 15 gm Q15M PRN BUCCAL DECREASED GLUCOSE; Start 08/06/17 at 00:45 Temazepam (Restoril) 15 mg QHS PRN PO insomnia Last administered on 08/08/17 00:00; Admin Dose 15 MG; Start 08/06/17 at 02:30 Metoclopramide HCl (Reglan) 10 mg Q6 IV Last administered on 08/08/17 12:34; Admin Dose 10 MG; Start 08/06/17 at 12:00 Lorazepam (Ativan) 0.5 mg Q12H PRN IV Anxiety; Start 08/06/17 at 21:00 Insulin Glargine (Lantus) 15 unit HS SC Last administered on 08/07/17 22:06; Admin Dose 15 UNIT; Start 08/06/17 at 21:00 Furosemide (Lasix) 20 mg DAILY IV Last administered on 08/07/17 13:42; Admin Dose 20 MG; Start 08/07/17 at 09:00 Nitroglycerin (Nitroglycerin (Sl Tab) 0.4 Mg) 1 tab Q5M PRN SL ANGINA; Start 08/06/17 at 14:00 MALKA VU Aug 08, 2017 13:50
--- NOTE | 2017-08-10 08:51 | DS ---
Date/Time of Note Date/Time of Note DATE: 08/10/17 TIME: 08:44 Discharge Summary Admission/Discharge Info Admit Date/Time Aug 05, 2017 at 22:59 Discharge Date/Time Aug 08, 2017 at 17:56 Discharge Diagnosis Liver cirrhosis with encephalopathy. Patient Condition: Serious Consults Dr Jimenes, Dr Camacho, dr Rubio Robiscan negative Hx of Present Illness This is a 56-year-old male with a past medical history of liver cirrhosis, status post portal shunt tips in 2017 for recurrent ascites, history of esophageal varices, ETOH abuse, chronic pancreatitis. He has history of coronary artery disease status post 3 stents at [facility], history of encephalopathy , diabetes, anemia, status post EGD on 06/03/2017 with gastroparesis, who was admitted to [facility] from 05/24/2017 to 06/06/2017 with a prolonged hospitalization course. According to the patient since the last discharge, he has been admitted, one time to [facility] for altered mental status. He was found to have hepatic encephalopathy and UTI and was discharged home in 2 to 3 days. The second time, he got admitted again for hepatic encephalopathy to [facility]. Although according to the patient, overall his condition has been deteriorating. Since the last 5 days, he has been unable to eat anything p.o. He has been also having some epigastric pain. He feels that everything is stuck there. He has hardly eaten anything. Every time he drinks, he vomits out. The patient also has been feeling weak, dizzy. The patient has also on and off experienced left-sided chest pain and also shortness of breath. According to the patient, he is also having worsening bilateral lower extremity swelling for the last few weeks. Per , the patient has been taking Lasix and Aldactone at home, but has not been urinating much, but it has been less for the last few days. Per patient, he has also started noticing a blackish discoloration of the right great toe that probably started when he hit himself while on the wheelchair, but there were no fevers, no chills. Due to persistent complaints, the family was worried and patient was brought into the ER. On arrival to ED, vital signs were temperature 99.0, heart rate was 112, respirations 16, blood pressure 154/87. Sodium was 125, potassium 5.6 , bicarbonate 25, BUN 24, creatinine 1.18. Troponin 0.025 and the patient was given aspirin, nitro and was admitted for further management. A chest x-ray was essentially negative. PAST MEDICAL HISTORY: 1. Liver cirrhosis. 2. Chronic pancreatitis. 3. Recurrent ascites, status post TIPS placement in 2017. 4. History of coronary artery disease status post PCI x3. 5. Diabetes. 6. Hypertension. 7. Bilateral lower extremity edema. 8. Anemia. 9. History of gastroparesis. On 08/08/2017 Pt decided to go home, his called and spoke to nursing requesting discharge her home. Patient was not medically stable to be discharged. His picked him up and AMA was signed. Hospital Course 1. Abdominal pain, nausea, vomiting, resolved 2. Chest pain, resolved 3. Hyponatremia, better 4. Hyperkalemia, better. 5. Mild acute kidney injury, likely secondary to poor p.o. intake third spacing plus taking diuretics. 6. Bilateral lower extremity edema could be secondary to liver cirrhosis versus CHF. 7. Right toe questionable gangrene. Duplex showed reduced KITA on Rt 8. Diabetes, uncontrolled. 9. History of staph and fungus bacteremia. 10. History of urinary tract infection. 11. Anemia 10.7>7.9 ? Upper GI vs Bleeding lips? 12. Constipation for 4 days Home Meds Active Scripts Oxycodone HCl/Acetaminophen (Percocet 5-325 mg Tablet) 1 Each Tablet, 1 EACH PO TID for PAIN, #12 TAB Prov:DUONG SALMERON MD 06/19/17 Metoclopramide* (Reglan*) 5 Mg Tablet, 5 MG PO Q6H Y for NAUSEA AND OR VOMITING for 3 Days, TAB Prov:TOMMY LEWIS DO 06/15/17 Lactulose* (Cephulac*) 20 Gm/30 Ml Soln, 26.7 GM PO BID for 30 Days Prov:MALKA VU 06/06/17 Reported Medications Insulin Glargine* (Lantus*) 100 Unit/Ml Soln, 34 UNIT SC QHS for 30 Days, #1 VIAL 08/05/17 Dextran/Hypromellose/Glycerin (Artificial Tears Drops) 15 Ml Drops, 2 DROP BOTH EYES TID Y for PRN, EA 05/24/17 Melatonin-Pyridoxine Hcl (Melatonin) 5-10 Mg Tablet, 5 TAB PO HS, TAB 05/24/17 Fluocinonide* (Fluocinonide* Cream) 0.1% - 120 Gm Cream..g., 1 APPLIC TOP BID, TUB 05/24/17 Rifaximin* (Xifaxan*) 550 Mg Tablet, 550 MG PO BID, TAB 05/24/17 Diphenhydramine Hcl* (Diphenhydramine Hcl*) 25 Mg Capsule, 25 MG PO Q6 Y for ITCHING, CAP 05/24/17 Cyanocobalamin* (Vitamin B12*) 500 Mcg Tab, 500 MCG PO DAILY, TAB 05/24/17 Calcium Acetate* (Calcium Acetate*) 667 Mg Capsule, 667 MG PO WITH MEALS, #30 CAP 05/24/17 Midodrine* (Midodrine*) 5 Mg Tablet, 5 MG PO TID, TAB 05/24/17 Clopidogrel Bisulfate* (Clopidogrel Bisulfate*) 75 Mg Tablet, 75 MG PO DAILY, # 30 TAB 05/24/17 Lidocaine/Menthol (LIDOPATCH) 1 Each Adh..patch, 1 EACH TP Q12, PATCH PLACE 1 PATCH ONTO SKIN Q12H ON / Q12H OFF 05/24/17 Ezetimibe* (Zetia*) 10 Mg Tablet, 10 MG PO DAILY, TAB 05/24/17 Insulin Lispro (Humalog Kwikpen U-100) 100 Unit/1 Ml Insuln.pen, 22 UNIT SQ DAILY INJECT 22units IF EATS >50% OR 10units IF EATS < 50% OF MEAL ; TID 05/24/17 Spironolactone* (Aldactone*) 25 Mg Tablet, 200 MG PO DAILY, #30 TAB 05/24/17 Pantoprazole* (Protonix*) 40 Mg Tablet.dr, 40 MG PO DAILY, TAB 08/23/16 Discontinued Scripts Insulin Glargine* (Lantus*) 100 Unit/Ml Soln, 25 UNIT SC DAILY@20 for 30 Days Prov:MALKA VU 06/06/17 Primary Care Provider MALKA Cates Aug 10, 2017 08:51
== END 2017-08-08 17:56 | disposition left against medical advice (07) | DRG 313 ==
LOC: E/R 21:24 → TEL 22:59
PROVIDERS: ADMIT Internal Medicine; ATTEND Internal Medicine
DX: R07.9 Chest pain, unspecified (principal); N17.9 Acute kidney failure, unspecified; I96 Gangrene, not elsewhere classified; E11.65 Type 2 diabetes mellitus with hyperglycemia; I50.9 Heart failure, unspecified; E87.1 Hypo-osmolality and hyponatremia; K74.60 Unspecified cirrhosis of liver; E11.9 Type 2 diabetes mellitus without complications; D64.9 Anemia, unspecified; E87.5 Hyperkalemia; K59.00 Constipation, unspecified; Z95.5 Presence of coronary angioplasty implant and graft; R10.13 Epigastric pain
CPT/HCPCS: 36415; 71010; 78452; 80048; 80053; 81003; 82140; 82550; 82553; 82962; 83690; 83880; 83935; 84295; 84300; 84484; 85025; 85610; 93005; 93017; 93306; 93922; J1940; A9500; A9505; J1815; J2060; J2270; J2405; J2765; J2785; P9047

== ENCOUNTER 2017-09-09 14:57 | Emergency (ER) | payer MEDICAID ==
[~2017-09-09] VITALS: Ht 170.2 cm; Wt 70.0 kg
[2017-09-09 15:02] VITALS: Ht 170.2 cm; Wt 70.0 kg
[2017-09-09 16:00] VITALS: BP 136/80; PULSE 77; RESP 18; TEMP 98
--- NOTE | 2017-09-09 16:12 | ERD ---
ER Documentation Chief Complaint Chief Complaint BIB RA FOR PARACENTESIS. HPI Patient is a 56-year-old male with history of alcoholic cirrhosis who was discharged from [facility] yesterday after a 20 day admission for sepsis with unknown source. He was sent home on IV antibiotics. Since arriving home, he complains of increasing dyspnea and diffuse abdominal pain. He denies vomiting or diarrhea. He denies fever. He denies chest pain. He reports that he receives paracentesis approximately every 2-3 days and would like a paracentesis. ROS All systems reviewed and are negative except as per history of present illness. Medications Home Meds Active Scripts Oxycodone HCl/Acetaminophen (Percocet 5-325 mg Tablet) 1 Each Tablet, 1 EACH PO TID for PAIN, #12 TAB Prov:DUONG SALMERON MD 06/19/17 Metoclopramide* (Reglan*) 5 Mg Tablet, 5 MG PO Q6H Y for NAUSEA AND OR VOMITING for 3 Days, TAB Prov:TOMMY LEWIS DO 06/15/17 Lactulose* (Cephulac*) 20 Gm/30 Ml Soln, 26.7 GM PO BID for 30 Days Prov:MALKA VU 06/06/17 Reported Medications Insulin Glargine* (Lantus*) 100 Unit/Ml Soln, 34 UNIT SC QHS for 30 Days, #1 VIAL 08/05/17 Dextran/Hypromellose/Glycerin (Artificial Tears Drops) 15 Ml Drops, 2 DROP BOTH EYES TID Y for PRN, EA 05/24/17 Melatonin-Pyridoxine Hcl (Melatonin) 5-10 Mg Tablet, 5 TAB PO HS, TAB 05/24/17 Fluocinonide* (Fluocinonide* Cream) 0.1% - 120 Gm Cream..g., 1 APPLIC TOP BID, TUB 05/24/17 Rifaximin* (Xifaxan*) 550 Mg Tablet, 550 MG PO BID, TAB 05/24/17 Diphenhydramine Hcl* (Diphenhydramine Hcl*) 25 Mg Capsule, 25 MG PO Q6 Y for ITCHING, CAP 05/24/17 Cyanocobalamin* (Vitamin B12*) 500 Mcg Tab, 500 MCG PO DAILY, TAB 05/24/17 Calcium Acetate* (Calcium Acetate*) 667 Mg Capsule, 667 MG PO WITH MEALS, #30 CAP 05/24/17 Midodrine* (Midodrine*) 5 Mg Tablet, 5 MG PO TID, TAB 05/24/17 Clopidogrel Bisulfate* (Clopidogrel Bisulfate*) 75 Mg Tablet, 75 MG PO DAILY, # 30 TAB 05/24/17 Lidocaine/Menthol (LIDOPATCH) 1 Each Adh..patch, 1 EACH TP Q12, PATCH PLACE 1 PATCH ONTO SKIN Q12H ON / Q12H OFF 05/24/17 Ezetimibe* (Zetia*) 10 Mg Tablet, 10 MG PO DAILY, TAB 05/24/17 Insulin Lispro (Humalog Kwikpen U-100) 100 Unit/1 Ml Insuln.pen, 22 UNIT SQ DAILY INJECT 22units IF EATS >50% OR 10units IF EATS < 50% OF MEAL ; TID 05/24/17 Spironolactone* (Aldactone*) 25 Mg Tablet, 200 MG PO DAILY, #30 TAB 05/24/17 Pantoprazole* (Protonix*) 40 Mg Tablet.dr, 40 MG PO DAILY, TAB 08/23/16 Allergies Allergies: Coded Allergies: No Known Drug Allergy (Unverified Allergy, Unknown, 08/05/17) PMhx/Soc Past medical history: Alcoholic cirrhosis, diabetes mellitus Past surgical history: Unknown brain surgery Social history: Denies current alcohol or tobacco, previously drink heavily. History of Surgery: Yes (stent placed at [facility] 2 months ago) Hx Neurological Disorder: Yes Hx Respiratory Disorders: Yes Hx Cardiac Disorders: Yes Hx Psychiatric Problems: No Hx Miscellaneous Medical Probl: Yes (ETOH abuse ) Hx Alcohol Use: No Hx Substance Use: No Hx Tobacco Use: No FmHx Noncontributory Physical Exam Vitals Vital Signs Date Time Temp Pulse Resp B/P Pulse Ox O2 Delivery O2 Flow Rate FiO2 09/09/17 16:00 98.0 77 18 136/80 Room Air 09/09/17 15:02 97.2 70 18 102/56 99 Physical Exam Const: Alert, no acute distress Head: Atraumatic Eyes: Normal Conjunctiva, Mild pallor, mild icterus ENT: Normal External Ears, Nose and Mouth. Mucous membranes moist Neck: Full range of motion..~ No meningismus. Resp: Clear to auscultation bilaterally, No wheezes, no rales Cardio: Regular rate and rhythm, no murmurs Abd: Soft, Mild to moderately distended, Mild diffuse tenderness, No rebound or guarding Skin: Diffuse petechia, no other rash Ext: No cyanosis, 3+ pitting edema/anasarca to abdominal wall. Small necrotic lesion on right great toe without any discharge or erythema. Neur: Awake and alert, Cranial nerves II through XII intact bilaterally, strength and sensation grossly intact in 4 extremities, no asterixis. Psych: Normal Mood and Affect Procedures/MDM EKG read by me: Time 1618, rate 86 Rhythm: Normal sinus, sinus arrhythmia [place]: Normal Intervals: Prolonged QTC ST-T waves: no ischemic changes. Poor R-wave progression. Ectopy: No Q-waves: No Impression: No evidence of ischemia or arrhythmia MDM: Patient is a 56-year-old male who presents to the ER one day after being discharged from [facility] liver service after a 20 day admission. The patient initially complained of acute abdominal pain and dyspnea. He is on IV antibiotics with PICC line for an unknown infection. I attempted to contact [facility] to obtain records, but was unable to do so. I advised the patient of my intended plan to obtain blood and urine tests, chest x-ray, and to perform a diagnostic paracentesis. I did not see significant ascites to warrant a therapeutic paracentesis. When the patient was advised of this, he stated that he had only come to the emergency department in order to get a therapeutic paracentesis, and refused all blood tests and other tests. He also stated that he does not have acute abdominal pain, but has stable chronic abdominal pain. He stated that he does not feel short of breath currently, but has intermittent shortness of breath. I explained to him the risk of spontaneous bacterial peritonitis, possibility of systemic infection, electrolyte abnormality, bleeding, endorgan dysfunction. The patient understood these concerns and signed out AGAINST MEDICAL ADVICE. He has stable vital signs and is acting appropriately. I do not suspect encephalopathy. Departure Diagnosis: Primary Impression: Anasarca Additional Impressions: Ascites Ascites type: due to alcoholic cirrhosis Qualified Code: K70.31 - Ascites due to alcoholic cirrhosis Alcoholic cirrhosis Ascites presence: with ascites Qualified Code: K70.31 - Alcoholic cirrhosis of liver with ascites Condition: Stable DAVID OSEGUERA MD Sep 09, 2017 16:12
--- NOTE | 2017-09-09 16:48 | RADRPT ---
PROCEDURE: XR Chest. CLINICAL INDICATION: Abdominal pain TECHNIQUE: Single frontal view of the chest was obtained COMPARISON: 02/06/2017 FINDINGS: The heart is not enlarged. Calcification in the aortic arch. Linear atelectasis at the left lung base. Right PICC line tip near atriocaval junction. The patient' s chin is projected over the medial lung apices. There is no pleural effusion or pneumothorax seen. IMPRESSION: Linear atelectasis at left lung base and to a lesser extent right lung base.. Please see above. RPTAT: HJES .Jose Wilson MD, Date Time Electronically viewed and signed by .Jose Wilson MD, on 09/09/2017 16:48 .S/
== END 2017-09-09 16:45 | disposition left against medical advice (07) ==
LOC: E/R 14:57
DX: R60.1 Generalized edema (principal); K70.31 Alcoholic cirrhosis of liver with ascites; E11.9 Type 2 diabetes mellitus without complications; Z79.4 Long term (current) use of insulin; Z79.01 Long term (current) use of anticoagulants
CPT/HCPCS: 71010; 93005; Z7502

== ENCOUNTER 2017-11-11 16:12 | Emergency (ER) | END 2017-11-11 20:12 | disposition home or self-care (01) ==

== ENCOUNTER 2018-01-03 13:43 | Inpatient (IN) | END 2018-01-17 17:55 | disposition home or self-care (01) | DRG 640 ==

== ENCOUNTER 2018-02-04 01:42 | Inpatient (IN) | END 2018-02-04 19:20 | disposition left against medical advice (07) | DRG 392 ==

== ENCOUNTER 2018-02-05 12:53 | Inpatient (IN) | END 2018-02-08 11:43 | disposition home or self-care (01) | DRG 369 ==

== ENCOUNTER 2018-03-07 23:23 | Inpatient (IN) | END 2018-03-09 16:31 | disposition home or self-care (01) | DRG 441 ==

== ENCOUNTER 2018-05-31 04:42 | Inpatient (IN) | END 2018-06-08 10:54 | disposition left against medical advice (07) | DRG 442 ==